=== PATIENT | female | born 1985 | race Caucasian/White ===

== ENCOUNTER → 2017-06-17 15:41 | Outpatient (CLI) | payer MEDICAID, SELFPAY | PROVIDERS: Family Provider Student in an Organized Health Care Education/Training Program; PCP Student in an Organized Health Care Education/Training Program; Visit Provider Otolaryngology Otolaryngology/Facial Plastic Surgery | DX: J32.9 Chronic sinusitis, unspecified (principal) | CPT/HCPCS: 87070; 87077; 87186; 87205 ==

== ENCOUNTER 2017-07-31 12:48 | Emergency (ER) | payer MEDICAID, SELFPAY ==
[2017-07-31 12:49] VITALS: BP 173/115; PULSE 97; RESP 22; TEMP 36.7; O2SAT 98; BMI 36.2
--- NOTE | 2017-07-31 13:05 | CT_ITS ---
STUDY: CT ABDOMEN AND PELVIS WITHOUT CONTRAST REASON FOR EXAM: Female, 32 years old. Right flank pain. RADIATION DOSAGE (If Supplied By Facility): CTDIvol = ( 20.98 ) mGy, DLP = ( 1058.9 ) mGycm TECHNIQUE: Transaxial images were obtained from the dome of the diaphragm to the symphysis pubis without oral contrast, and without intravenous contrast. Sagittal and coronal images were reconstructed. Individualized dose optimization techniques were used for this CT. COMPARISON: Comparison is made with prior study dated May 12, 2015. FINDINGS: The visualized lung bases are unremarkable. The visualized portions of the heart are within normal limits. Normal liver. There are surgical clips in the gallbladder fossa consistent with a prior cholecystectomy. Normal spleen. Normal pancreas. Normal bilateral adrenal glands. Normal right kidney. Normal left kidney. Normal visualized stomach. Normal small intestine. Normal colon. The appendix is visualized and appears normal. Normal abdominal aorta. Normal inferior vena cava. There is borderline retroperitoneal lymphadenopathy with enlarged nodes no greater than 10mm in the short axis diameter. Normal urinary bladder. IUD is seen within the uterus. Follicles are seen in the left ovary. Minimal subcutaneous thickening in the left paraumbilical region. Normal osseous structures. CT/Abdomen/Pelvis without Cont IMPRESSION: Prior cholecystectomy. IUD seen within the uterus. Follicles are seen in the left ovary. Electronically Signed: Abhinav Elizabeth MD at 14:18 EDT Tel [phone], Service support ,
[2017-07-31 13:15] LABS: Absolute Lymphocyte Count 2.72 X10^3/ul (0.83-4.51); Absolute Neutrophil Count 6.9 X10^3/uL (2.0-7.7); Basophil# 0.02 X10^3/uL; Basophil% 0.2 % (0-1); Eosinophil# 0.15 X10^3/uL; Eosinophils% 1.5 % (0-5); Hematocrit 42.4 % (37-47); Hemoglobin 14.3 g/dl (12.0-15.0); Lymphocyte # 2.72 X10^3/ul (4.0); Lymphocyte % 26.3 % (19-41); Mean Corp Hgb Conc 33.7 g/gl (32-36); Mean Corpuscular Hgb 29.3 pg (27.0-32.0); Mean Corpuscular Volume 86.9 fL (81-99); Mean Platelet Vol. 9.3 fl (6.2-12.0); Monocyte# 0.49 X10^3/uL; Monocyte% 4.7 % (0-10); Neutrophil # 6.94 X10^3/uL (2.7-7.7); Neutrophil % 67.1 % (47-70); Platelet Count 308 K/mm3 (150-450); RBC Distribution Width CV 12.3 % (11.6-14.6); RBC Distribution Width SD 39.2 fl (35.1-43.9); Red Blood Count 4.88 M/mm3 (4.2-5.4); White Blood Count 10.3 K/mm3 (4.4-11.0)
[2017-07-31 13:16] LABS: POSITIVE COUNT NO; POSITIVE DIFFERENTIAL NO; POSITIVE MORPHOLOGY NO
[2017-07-31] MEDS: Ondansetron 4 MG/2 ML Vial IV (13:21)
[2017-07-31] MEDS: 0.9% Normal Saline 1,000 ML 1000 ML IV (13:21)
[2017-07-31] MEDS: Ketorolac 30 MG/ML Syringe IV (13:23)
[2017-07-31 13:25] LABS: Mucous, Urine 0 SEEN /hpf (<or=2+)
[2017-07-31 13:29] LABS: AST(SGOT) 41 U/L (15-37); Alanine Aminotransfer ALT/SGPT 76 U/L (13-56); Albumin, Serum 4.2 g/dL (3.2-5.0); Alkaline Phosphatase 95 U/L (45-117); Anion Gap 11 (5-15); BUN 5 mg/dL (7-18); Bilirubin, Direct 0.14 mg/dL (0.00-0.30); Chloride 105 mmol/L (98-107); Creatinine, Serum 0.84 mg/dL (0.55-1.02); EST Glomerular Filtration Rate 83 mL/min (>60); Est Glom Filt Rate - Afr Amer 101 mL/min (>60); Estimated Creatinine Clearance 99.55 ml/min; Globulin 3.9 g/dL (2.2-4.2); Glucose 142 mg/dL (74-106); Lipase 99 U/L (73-393); Potassium 3.5 mmol/L (3.5-5.1); Protein, Total 8.1 g/dL (6.4-8.2); Sodium Level 138 mmol/L (136-145)
[2017-07-31 13:33] LABS: Pregnancy, Serum, hCG Quali. NEGATIVE Negative (0-9 Nonpreg)
[2017-07-31 13:34] LABS: Color, Urine Yellow (Yellow); Glucose, Dipstick Normal (Normal); Ketone-Dipstick 5 mg/dl (Negative); Leukocyte Esterase-Dipstick Negative /ul (Negative); Nitrite-Dipstick Negative (Negative); Occult Blood-Urine 10 /ul (Negative); Protein-Dipstick 30 mg/dl (Negative); Urine Bilirubin Dipstick Negative (Negative); Urine Clarity Clear (Clear); Urine Urobilinogen Normal (Normal)
[2017-07-31 13:41] LABS: Bacteria 1+ /hpf (None Seen); Red Blood Cells-Urine 0-5 SEEN /hpf (0-5); Squamous Epithelial Cells - UA 0-5 SEEN /hpf (5-10); White Blood Cells 0-5 SEEN /hpf (0-5)
[2017-07-31] MEDS: Morphine 4 MG/ML Syringe IV (13:53)
--- NOTE | 2017-07-31 13:59 | ED.DCSUM_ITS ---
- ER Visit Summary Date of Service: 07/31/17 Chief Complaint: Right flank pain History of Present Illness: The patient is a [address] Carrillo. She reports that she had the abrupt onset of right flank pain this morning at 5 AM. Says sharp pains 10 out of 10 severity. Is worsened by nothing relieved by nothing. She has had nausea without vomiting. No diarrhea. Her last bowel movement was yesterday. No melena or hematochezia. No dysuria, frequency, or hematuria. Physical Examination: Vitals: Stable. Afebrile. General: Well-nourished and well-developed. Head: Normocephalic atraumatic. Neck: Supple, no lymphadenopathy. No JVD. Nontender. Cardiovascular: Regular rate and rhythm. No murmurs. Respiratory: No respiratory distress. Clear to auscultation bilaterally. Abdominal: Soft, mild suprapubic tenderness to palpation, nondistended, normal bowel sounds. No guarding, rebound, or peritoneal signs. Back: Mild right CVA tenderness. Extremities: Nontender, no edema. Skin: Normal color, no rash. Neurologic: Alert and oriented ?3. Cranial nerves II through XII are intact. Normal strength and sensation. Psych: Normal affect. Test Results: CBC is normal. Chem-7 is marked for glucose 142 and BUN of 5. LFTs marked for an ALT of 76 and AST of 41. Lipase is normal. UA shows no infection. test is negative. CT flank shows a normal appendix, prior cholecystectomy, left ovarian follicles. Emergency Department Course and Treatment: Patient had an IV placed. She was given morphine, Toradol, and Zofran IV. She is resting comfortably. Treatment Plan: An [facility] report was obtained which show she had one prescription for opiates in the past year. She given a prescription prescription for Zofran and 12 [place]. Instructed to follow-up Dr. Carrillo 1-2 days if not improving. Return to the emergency department for any worsening symptoms. Disposition: To home in improved and stable condition. Impression: 1. Abdominal pain, uncertain cause. This note was generated with [email or web address] software. It may contain incorrect words, spelling, and punctuation that were not noted in review of the chart prior to signing ED Disposition - Plan for ED Patient: Chief Complaint: Abd Pain Instructions: ED Abdominal Pain Unkn Cause Prescriptions: Ondansetron [Zofran Odt] 4 mg PO Q8H PRN PRN #10 tablet PRN Reason: Nausea Hydrocodone/Acetaminophen [[place] 5-325 Tablet] 1 - 2 each PO 4X/DAY PRN PRN 3 Days #12 tablet PRN Reason: Pain Referrals: Gigi Carrillo DO [Primary Care Provider] - 1-2 Days if not improving
[2017-07-31 14:45] VITALS: BP 145/85; PULSE 81; RESP 16; O2SAT 98
== END 2017-07-31 14:46 | disposition home or self-care (01) ==
PROVIDERS: Emergency Provider Emergency Medicine; Family Provider Student in an Organized Health Care Education/Training Program; PCP Student in an Organized Health Care Education/Training Program
DX: R10.9 Unspecified abdominal pain (principal); E11.9 Type 2 diabetes mellitus without complications; F32.9 Major depressive disorder, single episode, unspecified; Z90.49 Acquired absence of other specified parts of digestive tract; Z79.84 Long term (current) use of oral hypoglycemic drugs; Z79.899 Other long term (current) drug therapy
CPT/HCPCS: 74176; 80048; 80076; 81001; 83690; 84703; 85025; 96361; 96374; 96375; 99283; J7030; A4216; J2405

== ENCOUNTER → 2019-06-22 11:27 | Outpatient (CLI) | payer MEDICAID, SELFPAY ==
[2019-01-14 15:28] VITALS: BMI 36.2
--- NOTE | 2019-06-22 11:38 | US_ITS ---
STUDY: ABDOMINAL ULTRASOUND REASON FOR EXAM: Female, 34 years old. NAUSEA, ABD CRAMPING, BLOODY STOOLS TECHNIQUE: Transabdominal ultrasound was performed with real-time and static montaño scale imaging. TECHNICAL QUALITY: Adequate. COMPARISON: None. FINDINGS: Liver: The liver measures 17.9 cm. There is increased echogenicity consistent with fatty infiltration. The bile ducts are within normal limits. There is hepatic color flow. The direction of portal flow is hepatopetal. There is no demonstrated mass lesion. Portal vein measurement: Gallbladder: The patient is status post cholecystectomy. Common Bile Duct (C.B.D.): The common bile duct measures 6.8 mm. Pancreas: Normal size of the head, body and tail of the pancreas. There is normal echogenicity of the pancreas. There is no demonstrated pancreatic mass or cyst. Spleen: Normal size of the spleen. The spleen measures 12 cm x 5.2 cm x 5.3 cm. Right Kidney: Normal size of the right kidney. The right kidney measures 12.6 cm x 7.1 cm x 4.9 cm. Normal renal cortex. The right cortex measures 1.6 cm. There is no demonstrated renal mass or cyst. There is no right hydronephrosis. Left Kidney: Normal size of the left kidney. The left kidney measures 11.8 cm x 6.4 cm x 6.1 cm. Normal renal cortex. The left cortex measures 2.0 cm. There is no demonstrated renal mass or cyst. There is no left hydronephrosis. Aorta: Unremarkable I.V.C.: The IVC is patent. There is no ascites. US/Abdomen Complete IMPRESSION: Fatty infiltration of the liver. Status post cholecystectomy. Electronically Signed: Abhinav Elizabeth, at 13:10 EDT , Service support ,
== END ==
PROVIDERS: PCP Student in an Organized Health Care Education/Training Program; Referring Provider Nurse Practitioner Family; Visit Provider Nurse Practitioner Family
DX: R11.0 Nausea (principal); R10.9 Unspecified abdominal pain; K92.1 Melena; R73.9 Hyperglycemia, unspecified
CPT/HCPCS: 76700

== ENCOUNTER → 2020-02-14 09:00 | Outpatient (CLI) | payer MEDICAID, SELFPAY ==
[2019-01-14 15:28] VITALS: BMI 36.2
== END ==
PROVIDERS: PCP Student in an Organized Health Care Education/Training Program; Referring Provider Otolaryngology; Visit Provider Otolaryngology
DX: U07.1 COVID-19 (principal)
CPT/HCPCS: 87635; U0003

== ENCOUNTER 2020-02-22 13:12 | Emergency (ER) | payer MEDICAID, SELFPAY ==
[2019-01-14 15:28] VITALS: BMI 36.2
[2020-02-22 13:12] VITALS: BP 152/107; PULSE 101; RESP 20; TEMP 36.4; O2SAT 100; BMI 35.2
--- NOTE | 2020-02-22 14:13 | ED.DCSUM_ITS ---
History of Present Illness Chief Complaint: Shortness of Breath Informant: Patient Narrative: 34-year-old female presenting with bilateral lower chest pain for the last couple of days. She states that she was tested positive for Covid?19 on 15 February. She states she is began having symptoms on February 13 and this is the day she was tested. Patient states that she began to feel better about the fourth and fifth day of her symptoms and then started feeling worse and having chest pain and worsening cough. - Past Medical History (1) Diabetes Status: Acute Past Medical History - Allergies and Home Meds Allergies/Adverse Reactions: Allergies macadamia nut oil Allergy (Verified 01/14/19 15:18) Rash Primary Care Physician: Gigi Carrillo DO [Primary Care Provider] - Prior records reviewed: Yes Past Medical History: - - Reviewed in problem list Surgical History: noncontributory Smoking Status: Never smoker Review of Systems General: Reports: Chills, Fever Eyes: Denies: Visual changes - bilaterally, Diplopia ENT: Denies: Rhinorrhea, Sore throat Cardiovascular: Reports: Chest pain Respiratory: Reports: Dyspnea, Cough. Denies: Sputum Gastrointestinal: Denies: Abdominal pain, Nausea, Vomiting Genitourinary: Denies: Dysuria, Hematuria Musculoskeletal: Reports: Myalgias Skin: Denies: Rash, Abscess Neurological: Reports: Headache, Numbness. Denies: Parasthesia Psych: Denies: Depression, Anxiety Physical Exam Vital Signs/Narrative: Vital Signs Temp Pulse Resp BP Pulse Ox 02/22/20 13:12 97.6 F L 101 H 20 H 152/107 H 100 Inital Vital Signs reviewed: Yes General: Well nourished, No Acute Distress Head: Normocephalic, Atraumatic Eyes: Perrl, EOMI ENT: Moist mucous membranes, Nasal congestion Cardiovascular: Regular rate, Regular rhythm Abdomen: Soft, Nontender, Nondistended Extremities: Nontender, No edema. Negative for: Calf Tenderness Skin: Normal color, No rash Neurological: Alert, Oriented x3 Psychological: Normal affect, Normal Mood Diagnostic/Tx/Re-eval Clinical Impression(s) from Imaging Studies Chest X-Ray 02/22/20 15:00 IMPRESSION: Minimal increased markings are seen in the lateral aspect of the right upper lobe. Electronically Signed: Abhinav Elizabeth, at 15:13 EST , Service support , Laboratory Data 02/22/20 02/22/20 02/22/20 14:47 14:47 14:47 WBC 5.8 RBC 5.26 Hgb 15.7 H Hct 45.9 MCV 87.3 MCH 29.8 MCHC 34.2 RDW Std Deviation 37.5 RDW Coeff of Tristan 11.8 Plt Count 194 MPV 9.8 Immature Gran % (Auto) 0.300 Neut % (Auto) 63.5 Lymph % (Auto) 27.8 [place] % (Auto) 6.7 Eos % (Auto) 1.2 Baso % (Auto) 0.5 Absolute Neuts (auto) 3.7 Absolute Lymphs (auto) 1.61 Nucleated RBC % 0 D-Dimer Quant (PE/DVT) Sodium 137 Potassium 3.3 L Chloride 104 Carbon Dioxide 26.0 Anion Gap 7 BUN 7 Creatinine 0.72 Estim Creat Clear Calc 113.97 Est GFR (MDRD) Af Amer 119 Est GFR (MDRD) Non-Af 98 BUN/Creatinine Ratio 9.8 L Glucose 246 H Lactic Acid 1.4 Calcium 8.6 Total Bilirubin 0.70 AST 79 H ALT 154 H Alkaline Phosphatase 112 Total Protein 7.7 Albumin 3.7 Globulin 4.0 Albumin/Globulin Ratio 0.9 Procalcitonin 02/22/20 02/22/20 14:47 14:47 WBC RBC Hgb Hct MCV MCH MCHC RDW Std Deviation RDW Coeff of Tristan Plt Count MPV Immature Gran % (Auto) Neut % (Auto) Lymph % (Auto) [place] % (Auto) Eos % (Auto) Baso % (Auto) Absolute Neuts (auto) Absolute Lymphs (auto) Nucleated RBC % D-Dimer Quant (PE/DVT) 0.36 Sodium Potassium Chloride Carbon Dioxide Anion Gap BUN Creatinine Estim Creat Clear Calc Est GFR (MDRD) Af Amer Est GFR (MDRD) Non-Af BUN/Creatinine Ratio Glucose Lactic Acid Calcium Total Bilirubin AST ALT Alkaline Phosphatase Total Protein Albumin Globulin Albumin/Globulin Ratio Procalcitonin < 0.01 - EKG Initial EKG Interpretation: Sinus Rhythm, No Acute Injury Pattern - Medical Decision Making Patient presents with chest pain for the last couple of days with a history of Covid positive diagnosis. Patient's vital signs are stable and she is afebrile currently. Her EKG is sinus rhythm without signs of ischemia. Lab work is all within normal limits. Troponin is negative. D-dimer is negative. Patient has chest x-ray shows slight worsening of her infiltrate. She is 100% on room air, not tachypneic and otherwise nontoxic-appearing. She did meet criteria for monoclonal antibodies so she was given referral. I think at this time she is safe to be discharged home for follow-up on an outpatient basis. She was given return precautions. Impression: 1. Covid?19 pneumonia 2. Chest pain ED Disposition - Plan for ED Patient: Disposition: Home or Assisted Living Instructions: Coronavirus Disease 2019 (COVID-19): Caring for Yourself or Others Referrals: Gigi Carrillo DO [Primary Care Provider] -
--- NOTE | 2020-02-22 14:23 | EKG12_ITS ---
Test Reason : SOB Blood Pressure : / mmHG Vent. Rate : 076 BPM Atrial Rate : 076 BPM P-R Int : 164 ms QRS Dur : 090 ms QT Int : 372 ms P-R-T Axes : 057 044 009 degrees QTc Int : 418 ms Normal sinus rhythm Normal ECG Confirmed by ALBERTO BARILLAS, HUDSON ([id number]), sports editor NELLY LANG ([id number]) on 03/06/2020 8:35:00 AM Referred By: SAUL Confirmed By:SANDRA DOMINGUEZ MD
--- NOTE | 2020-02-22 14:36 | NURSING ---
NO OLD EKGS
[2020-02-22 14:53] VITALS: BP 141/73; PULSE 83; RESP 22; TEMP 36.3; O2SAT 99
[2020-02-22 14:55] VITALS: O2SAT 98
[2020-02-22 14:58] LABS: Absolute Lymphocyte Count 1.61 X10^3/uL (0.83-4.51); Absolute Neutrophil Count 3.7 X10^3/uL (2.0-7.7); Basophil# 0.03 X10^3/uL; Basophil% 0.5 % (0-1); Eosinophil# 0.07 X10^3/uL; Eosinophils% 1.2 % (0-5); Hematocrit 45.9 % (37-47); Hemoglobin 15.7 g/dL (12.0-15.0); Lymphocyte # 1.61 X10^3/ul (4.0); Lymphocyte % 27.8 % (19-41); Mean Corp Hgb Conc 34.2 g/dL (32-36); Mean Corpuscular Hgb 29.8 pg (27.0-32.0); Mean Corpuscular Volume 87.3 fL (81-99); Mean Platelet Vol. 9.8 fl (6.2-12.0); Monocyte# 0.39 X10^3/uL; Monocyte% 6.7 % (0-10); NRBC Flagged by Analyzer 0 % (0-5); Neutrophil # 3.67 X10^3/uL (2.7-7.7); Neutrophil % 63.5 % (47-70); Platelet Count 194 K/mm3 (150-450); RBC Distribution Width CV 11.8 % (11.6-14.6); RBC Distribution Width SD 37.5 fl (35.1-43.9); Red Blood Count 5.26 M/mm3 (4.2-5.4); White Blood Count 5.8 K/mm3 (4.4-11.0)
--- NOTE | 2020-02-22 15:00 | RAD_ITS ---
STUDY: X-RAY CHEST REASON FOR EXAM: Female, 34 years old. COVID POSITIVE. INCREASED COUGH AND SOB. TECHNIQUE: Single AP portable view of the chest. COMPARISON: None. FINDINGS: EKG electrodes are seen. I suspect minimal increased markings in the lateral aspect of the right upper lobe. There is no demonstrated pleural abnormality. Normal size heart. Normal mediastinum and andry. Normal visualized pulmonary arteries. Normal visualized aortic arch and descending thoracic aorta. Normal visualized thoracic spine. Normal visualized ribs, clavicles, and shoulders. There is no demonstrated abnormality of the visualized soft tissue structures of the upper abdomen. RAD/Chest 1 View (Portable) IMPRESSION: Minimal increased markings are seen in the lateral aspect of the right upper lobe. Electronically Signed: Abhinav Elizabeth, at 15:13 EST , Service support ,
[2020-02-22 15:13] LABS: ALB/GLOB Ratio 0.9 RATIO (0.9-2.4); AST(SGOT) 79 U/L (15-37); Alanine Aminotransfer ALT/SGPT 154 U/L (13-56); Albumin, Serum 3.7 g/dL (3.2-5.0); Alkaline Phosphatase 112 U/L (45-117); Anion Gap 7 (5-15); BUN 7 mg/dL (7-18); BUN/Creat Ratio 9.8 RATIO (10-20); Calcium,Total 8.6 mg/dL (8.5-10.1); Chloride 104 mmol/L (98-107); Creatinine, Serum 0.72 mg/dL (0.55-1.02); EST Glomerular Filtration Rate 98 mL/min (>60); Est Glom Filt Rate - Afr Amer 119 mL/min (>60); Estimated Creatinine Clearance 113.97 ml/min; Glucose 246 mg/dL (74-106); Potassium 3.3 mmol/L (3.5-5.1); Protein, Total 7.7 g/dL (6.4-8.2); Sodium Level 137 mmol/L (136-145)
[2020-02-22 15:31] LABS: Lactic Acid 1.4 mmol/L (0.4-1.9)
[2020-02-22 15:33] LABS: D-Dimer Quantitative (DVT/PE) 0.36 FEU/ug/m (0.27-0.49)
[2020-02-22 16:00] VITALS: BP 147/100; PULSE 84; RESP 20; TEMP 36.7
[2020-02-22 17:12] LABS: Procalcitonin < 0.01 ng/mL (0.00-0.09)
[2020-02-22 17:40] VITALS: BP 111/76; PULSE 88; RESP 20; TEMP 36.8; O2SAT 97
== END 2020-02-22 17:40 | disposition home or self-care (01) ==
PROVIDERS: Emergency Provider Student in an Organized Health Care Education/Training Program; PCP Student in an Organized Health Care Education/Training Program
DX: U07.1 COVID-19 (principal); J12.89 Other viral pneumonia; R07.9 Chest pain, unspecified; E11.9 Type 2 diabetes mellitus without complications; Z79.84 Long term (current) use of oral hypoglycemic drugs
CPT/HCPCS: 71045; 80053; 83605; 84145; 85025; 85379; 87040; 93005; 99284; A4216

== ENCOUNTER 2020-02-24 12:35 | Outpatient (CLI) | payer MEDICAID, SELFPAY ==
[2020-02-24 12:49] VITALS: BP 125/66; PULSE 83; RESP 18; O2SAT 98; BMI 35.1
[2020-02-24 13:50] VITALS: BP 132/82; PULSE 80; RESP 18; TEMP 36.8; O2SAT 98
[2020-02-24 14:20] VITALS: BP 136/81; PULSE 84; RESP 20; TEMP 36.7; O2SAT 97
[2020-02-24 14:40] VITALS: BP 129/83; PULSE 82; RESP 16; TEMP 36.8; O2SAT 99
[2020-02-24 15:40] VITALS: BP 133/82; PULSE 85; RESP 18; TEMP 36.7
== END 2020-02-24 15:43 | disposition home health service (06) ==
LOC: MS2OUT 12:36
PROVIDERS: PCP Student in an Organized Health Care Education/Training Program; Referring Provider Nurse Practitioner Acute Care; Visit Provider Nurse Practitioner Acute Care
DX: U07.1 COVID-19 (principal)
CPT/HCPCS: 96365; J7050; M0239; Q0239

== ENCOUNTER → 2020-03-30 | Outpatient (CLI) | payer MEDICAID, SELFPAY | END | disposition home or self-care (01) | LOC: LABSPEC 15:09 | PROVIDERS: PCP Student in an Organized Health Care Education/Training Program; Referring Provider Otolaryngology; Visit Provider Otolaryngology | DX: J32.9 Chronic sinusitis, unspecified (principal) | CPT/HCPCS: 87070; 87077; 87186; 87205 ==

== ENCOUNTER → 2020-06-06 16:26 | Outpatient (CLI) | payer MEDICAID, SELFPAY ==
--- NOTE | 2020-06-06 16:27 | CT_ITS ---
STUDY: CT FACIAL BONES WITHOUT CONTRAST REASON FOR EXAM: Female, 35 years old. CHRONIC SINUSITIS RADIATION DOSAGE (If Supplied By Facility): CTDIvol = ( 33.06 ) mGy, DLP = ( 817.32 ) mGycm TECHNIQUE: The patient was scanned in a multi detector CT scanner. Sagittal and coronal images were reconstructed. Individualized dose optimization techniques were used for this CT. COMPARISON: None. FINDINGS: Normal soft tissue structures. Normal orbital corona and orbital contents. Normal nasal bones and anterior nasal spine. Normal facial bones. There is no demonstrated fracture. Normal visualized paranasal sinuses. CT/Sinus/Facial Bone IMPRESSION: Normal unenhanced CT of the facial bones. Electronically Signed: Leo Gardner MD at 22:56 EDT Tel , Service support ,
== END ==
PROVIDERS: PCP Student in an Organized Health Care Education/Training Program; Referring Provider Otolaryngology; Visit Provider Otolaryngology
DX: J32.9 Chronic sinusitis, unspecified (principal)
CPT/HCPCS: 70486

== ENCOUNTER 2020-07-25 06:50 | Day surgery (SDC) | payer MEDICAID, SELFPAY ==
[2020-07-24 09:19] LABS: Hemoglobin A1c 9.7 % (3.8-5.6)
[2020-07-24 09:36] LABS: Anion Gap 6 (5-15); BUN 9 mg/dL (7-18); BUN/Creat Ratio 13.4 RATIO (10-20); Calcium,Total 8.6 mg/dL (8.5-10.1); Chloride 102 mmol/L (98-107); Creatinine, Serum 0.67 mg/dL (0.55-1.02); EST Glomerular Filtration Rate 105 mL/min (>60); Est Glom Filt Rate - Afr Amer 127 mL/min (>60); Glucose 274 mg/dL (74-106); Potassium 3.9 mmol/L (3.5-5.1); Sodium Level 135 mmol/L (136-145)
[2020-07-25] VITALS (8 sets, daily range): BP systolic 103–151; BP diastolic 62–94; PULSE 59–84; RESP 16; TEMP 36.1–36.3; O2SAT 94–100; BMI 33.9
[2020-07-25 07:15] LABS: Internal QC Validated? YES +Cl - CLEAR BKGD; Pregnancy, Urine Negative Negative
[2020-07-25] MEDS: Lactated Ringers 1,000 ML 100 ML IV ×2 (07:57→10:01)
[2020-07-25 08:02] LABS: Anion Gap 8 (5-15); BUN 9 mg/dL (7-18); BUN/Creat Ratio 13.8 RATIO (10-20); Calcium,Total 8.5 mg/dL (8.5-10.1); Chloride 102 mmol/L (98-107); Creatinine, Serum 0.65 mg/dL (0.55-1.02); EST Glomerular Filtration Rate 109 mL/min (>60); Est Glom Filt Rate - Afr Amer 132 mL/min (>60); Estimated Creatinine Clearance 125.04 ml/min; Glucose 267 mg/dL (74-106); Potassium 3.7 mmol/L (3.5-5.1); Sodium Level 135 mmol/L (136-145)
--- NOTE | 2020-07-25 08:10 | ETH_PTH ---
PATIENT: FREYA ESPARZA LOC: [facility] [place] U#:[id number] AGE/SX: 35/F ROOM: RE07/25/[address]: Dr. Bharat Dewitt MD : 1985 BED: DIS: 07/25/2020 SPEC #: [id number] RECD: 07/25/20 11:39 STATUS: CHILO REAjay #: [id number] PABLO: 07/25/20 08:[address]: Bharat Dewitt DEPT: SURGICAL PATHOLOGY RECD BY: Michaela Grayson ENTERED: 07/25/20 12:38 SP TYPE: ETH TISS OTHR DR: MD Dr. Gigi Moyer DO Tissues: A - Ethmoid sinus, NOS B - Ethmoid sinus, NOS Procedures: Decalcification bone/plaque Surgery Specimen Level IV HEADER OPERATION: Functional endoscopic sinus surgery, Navigation PRE-OP DIAGNOSIS: Nasal congestion, hypertrophy of inferior nasal turbinates, chronic pansinusitis, nasal bone fracture, deviated nasal septum TISSUE SUBMITTED: A - Contents of left ethmoid and maxillary sinus, B - Contents of right ethmoid and maxillary sinus MICROSCOPIC DIAGNOSIS A. Left ethmoid sinus and maxillary sinus contents: Fragments of respiratory mucosa including turbinate with chronic inflammation and bone. B. Right ethmoid sinus and maxillary sinus contents: Fragments of respiratory mucosa including turbinate with chronic inflammation and bone. MAI:abhishek 07/28/2020 MICROSCOPIC DESCRIPTION Slides are reviewed. GROSS DESCRIPTION A - Received in fixative is one container labeled with the patient's name and designated contents of left ethmoid and maxillary sinus. The specimen consists of multiple irregular fragments of pink soft tissue mixed with fragments of bone and turbinate that in aggregate measure 5 x 3 x 0.3 cm. The entire specimen is submitted in two cassettes after decalcification. B - Received in fixative is one container labeled with the patient's name and designated contents of right ethmoid and maxillary sinus. The specimen consists of multiple irregular fragments of hemorrhagic mucoid tissue mixed with fragments of causey-pink soft tissue and turbinate and bone that in aggregate measure 6 x 3 x 0.3 cm. Varnish Dipper tissue is submitted in two cassettes after decalcification. / MAI:abhishek 07/25/20 TC:3 CPT: 16429 x2, 27493 x2
--- NOTE | 2020-07-25 08:11 | PCM.DC ---
Discharge Instructions Diet Discharge Diet: No restrictions Activity Discharge Activity: May not drive while taking narcotic pain medications. Dressing / Incision Call your doctor if your incision/area has: Sudden Increased Bleeding Additional Dressing/Incision Instructions:: irrigate nose with saline 4 times daily. mupirocin ointment to nose and incision twice daily. sleep with head of bed elevated. keep bridge of nose dry except the morning of follow up - get it very wet in the shower so the cast comes off easily in clinic. Follow Up Care Please Follow Up With: Loco Dewitt MD When: 1 week Test Results: Test results from this visit will be discussed in further detail at your follow-up appointment, if applicable. Discharge Plan Admission Attending Provider: Loco Dewitt Primary Care Provider: Gigi Carrillo Consulting Providers: Anthony Anton Discharge Orders/Prescriptions Prescriptions: No Action metformin 500 MG tablet 500 mg PO BID RF: 0 colestipol 1 GM tablet 1 gm PO DAILY RF: 0 bupropion HCl 300 MG tablet extended release 24 hr 300 mg PO DAILY RF: 0 liraglutide 0.6 MG/0.1 ML pen injector 1.8 mg SQ DAILY RF: 0 Referrals / Follow Up: Gigi Carrillo DO [Primary Care Provider] - Disposition Discharge Orders: Discharge Patient (Routine); Ordered 07/25/20 Ordered By: Dr. Loco Dewitt
[2020-07-25 08:18] LABS: Hemoglobin A1c 10.1 % (3.8-5.6)
--- NOTE | 2020-07-25 08:19 | OP.PCM_ITS ---
Problems Associated Problem List Diagnoses (1) Nasal congestion: (2) Hypertrophy of inferior nasal turbinate: (3) Chronic pansinusitis: (4) Nasal bone fracture: (5) Deviated nasal septum: Report of Operation Date of Procedure: 07/25/20 Pre-Operative Diagnosis: 1. nasal congestion 2. nasal septal deviation 3. nasal bone fracture 4. inferior turbinate hypertrophy, right and left 5. chronic pansinusitis Post-Operative Diagnosis: 1. nasal congestion 2. nasal septal deviation 3. nasal bone fracture 4. inferior turbinate hypertrophy, right and left 5. chronic pansinusitis Surgery/Procedure Performed:: 1. open septorhinoplasty 2. submucous resection inferior turbinates, right and left 3. endoscopic total ethmoidectomy, right and left 4. endoscopic maxillary antrostomy with removal of contents, right and left 5. endoscopic frontal sinus exploration, right and left 6. endoscopic sphenoidotomy with removal of contents, right and left 7. CT image guidance navigation Type of Anesthesia: General Description of Procedure: On the day of the procedure, after appropriate informed consent was obtained, the patient was brought to the operating room and placed in a supine position on the operating room table. The patient was placed under general endotracheal anesthesia by the anesthesiologist. The endotracheal tube was secured. image guidance navigation was set up on the face and accuracy was confirmed. the nose was injected with lidocaine/epinephrine and decongested with oxymetazoline-soaked pledgets. Lacri-Lube was placed in the eyes and Tegaderm was placed over the eyes. The nose was injected with 1% lidocaine with epinephrine. The face was prepped and draped in sterile fashion. An inverted-V columellar incision was made with a Tioga blade. This traversed into the left and right marginal incisions in the nose. It was opened with three-point retraction and an Iris scissors. The left and right lower lateral cartilages were skeletonized. This was taken to the left scroll region and the left upper lateral cartilages were skeletonized as was the right scroll region and right upper lateral cartilage. The anterior septal angle was found by lateralizing the medial crura. However, it was severely deviated to the right and off the maxillary crest. This was carefully dissected using the [place]-tip Bovie. The submucoperichondrial flaps were created with the Freida elevator, first on the left and then the right posteriorly to the bony cartilaginous junction and inferiorly to the maxillary crest. Posteriorly, the patient had a large 2-cm bony spur that impinged into the maxillary natural os. Anteriorly, the patient had a very severe right to mid septal deviation. It was nearly occluding the nasal airway. A Freida elevator was used to disarticulate the bony cartilaginous junction. A #15 blade was used to disarticulate the right upper lateral cartilage which significantly destabilized the nose. A 1 cm strut was maintained off the keystone area which was still stable and the Catron elevator and a D-knife were used to remove the remainder of the septum. This was reshaped and sutured and fashioned to perform an anterior septal reconstruction and saved for future use. The deviated portions of the perpendicular plate of the ethmoid bone and vomer were removed using a Markie-Monet including the large right-sided septal spur. The head of the right and left inferior turbinates were injected with 1% lidocaine with epinephrine. The head of the left inferior turbinate was incised with a #15 blade. This was dissected submucosally using the Freida elevator, reduced using suction electrocautery, and outfractured using a Boies elevator. Similarly, on the right, the head of the right inferior turbinate was incised with a #15 blade. This was dissected submucosally using a Catron elevator, reduced using suction electrocautery, and outfractured using a Boies elevator. using a 2mm osteotome, lateral osteotomies were made on the patient's left then right. the severely deviated bony pyramid was then medialized and restored. the anterior septal reconstruction was placed as a left-sided internal medical staff manager graft. This was sutured between the nasal septum and right upper lateral cartilage using 4-0 PDS. This was also sutured to the maxillary crest in multiple points using 4-0 PDS. Additionally, a 2 mm x 1 cm internal medical staff manager graft was placed on the right side and sutured with 4-0 PDS. At this point, the nose was significantly re- stabilized. Multiple dermal sutures were used to refashion the nasal tip for stability to prevent collapse and a 5 mm x 2 mm columellar strut was used to prevent collapse. The submucoperichondrial flaps were closed with numerous 4-0 chromic sutures several incorporating the anterior septal reconstruction. The inverted-V columellar incision was closed with 7-0 Vicryl and the marginal incisions with interrupted 4-0 chromic. Espinosa splints were placed and a dorsal nasal splint was placed. The nose was irrigated with normal saline and the table was rotated 90 degrees toward the anesthesiologist. the zero degree endoscope was used to evaluate the nasal cavity. the superior attachment of the right and left middle turbinate and uncinate processes were injected with lidocaine/epinephrine. the left nasal cavity was evaluated. the middle turbinate was medialized. a maxillary antrostomy and uncinectomy were performed with a freida elevator and a randi cut. the antrostomy was widened with a back-biter. the ethmoid bulla was entered bluntly with the suction. a total ethmoidectomy was performed with a curette and an upgoing blakesley. this was taken superiorly to the skull base and laterally to the lamina. a stankewicz maneuver was performed and no laminar defect was noted. the natural sphenoid os was widened with the microdebrider and contents were evacuated. the frontal recess was explored and contents were evacuated. hemostasis was achieved with suction cautery. the right nasal cavity was evaluated. the middle turbinate was medialized. a maxillary antrostomy and uncinectomy were performed with a freida elevator and a randi cut. the antrostomy was widened with a back-biter. the ethmoid bulla was entered bluntly with the suction. a total ethmoidectomy was performed with a curette and an upgoing blakesley. this was taken superiorly to the skull base and laterally to the lamina. a stankewicz maneuver was performed and no laminar defect was noted. the natural sphenoid os was widened with the microdebrider and contents were evacuated. the frontal recess was explored and contents were evacuated. hemostasis was achieved with suction cautery. espinosa splints were sutured into place, and a dorsal nasal splint was placed. a nasogastric tube was inserted orally and contents were evacuated. the table was rotated 90 degrees toward the anesthesiologist and was subsequently extubated uneventfully. he was transferred to the PACU in stable condition.
[2020-07-25 09:51] LABS: Bedside Glucose 263 mg/dL (70-110)
[2020-07-25] MEDS: Mupirocin Ointment 22gm Tube 1 APPLIC (10:30)
[2020-07-25] MEDS: Lidocaine 1% /Epi 1:100 (20ml) 20 ML Vial (10:30)
[2020-07-25] MEDS: Oxymetazoline 0.05% 1 SPRAY SPRAY.BTL 15 SPRAY (10:30)
[2020-07-25 14:56] LABS: Bedside Glucose 297 mg/dL (70-110)
== END 2020-07-25 15:06 | disposition home or self-care (01) ==
LOC: SDC 06:50 → AC 06:51
PROVIDERS: Anesthesiology; PCP Student in an Organized Health Care Education/Training Program; Referring Provider Otolaryngology; Visit Provider Otolaryngology
PROC: (CPT 30140; principal; 2020-07-25 07:50)
PROC: (CPT 30140; 2020-07-25 07:50)
DX: J34.2 Deviated nasal septum (principal); J34.3 Hypertrophy of nasal turbinates; J32.4 Chronic pansinusitis; E11.9 Type 2 diabetes mellitus without complications; F32.9 Major depressive disorder, single episode, unspecified; F41.9 Anxiety disorder, unspecified; Z79.84 Long term (current) use of oral hypoglycemic drugs; Z79.899 Other long term (current) drug therapy; Z20.822 Contact with and (suspected) exposure to COVID-19; Z86.16 Personal history of COVID-19
CPT/HCPCS: 00160; 30140; 30520; 31259; 31267; 36415; 80048; 81025; 82962; 83036; 87426; 88305; 88311; C9803; J7120; J2405

== ENCOUNTER → 2021-01-05 15:47 | Outpatient (CLI) | payer MEDICAID, SELFPAY | PROVIDERS: PCP Student in an Organized Health Care Education/Training Program; Visit Provider Otolaryngology | DX: J32.8 Other chronic sinusitis (principal) | CPT/HCPCS: 87070; 87077; 87205 ==

== ENCOUNTER 2021-06-07 13:57 | Emergency (ER) | payer MEDICAID, SELFPAY ==
[2021-06-07 13:57] VITALS: BP 166/100; PULSE 81; RESP 16; TEMP 36.1; O2SAT 100; BMI 33.2
== END 2021-06-07 17:03 | disposition left against medical advice (07) ==
LOC: ED 17:06
PROVIDERS: PCP Student in an Organized Health Care Education/Training Program
DX: R05.9 Cough, unspecified (principal); Z53.21 Procedure and treatment not carried out due to patient leaving prior to being seen by health care provider

== ENCOUNTER 2021-07-03 18:13 | Emergency (ER) | payer MEDICAID, SELFPAY ==
[2021-07-03 18:14] VITALS: BP 145/92; PULSE 81; RESP 15; TEMP 36.4; O2SAT 98; BMI 33.8
--- NOTE | 2021-07-03 18:38 | EX.ED.DYSGE1 ---
HPI History of Present Illness Chief Complaint: Abn Labs Narrative Narrative: Unvaccinated patient tested positive for COVID and influenza A at the same time 1 week ago. She has had symptoms for 1.5 weeks. Very mild dyspnea with exertion and a normal chest x-ray but an abnormal D-dimer that was run today because she has been having soreness across both sides of her anterior and lateral low chest/rib cage when she coughs. She has been coughing a lot. She was sent here for CTA to rule out pulmonary embolus. She has never had a history of DVT or PE in the past and has no symptoms of a DVT right now. She mostly has anterior chest pain when she coughs, she denies any pleuritic discomfort when she is not coughing. [facility] Medical History delivery delivered Cholecystectomy planned Diabetes Diarrhea H/O gastric ulcer Knee pain Leg cramps Migraine headache Severe headache unexplained bruises Home Medications bupropion HCl 300 mg PO DAILY 07/31/17 [History Last Taken 02/17/20] colestipol 1 gm PO DAILY 07/31/17 [History Last Taken 02/17/20] metformin 500 mg PO BID 07/31/17 [History Last Taken 02/17/20] liraglutide 1.8 mg SQ DAILY 02/24/20 [History Last Taken 02/17/20] Allergy/AdvReac Type Severity Reaction Status Date / Time macadamia nut oil Allergy Rash Verified 06/07/21 13:59 Family History (Reviewed 02/23/20 @ 11:17 by Desirae Ndiaye TRAINING AND DOCUMENTATION SPECIALIST, TRAINING AND DOCUMENTATION SPECIALIST-C) Mother Breast cancer Kidney disease Ovarian cancer Pancreatic cancer Surgical History H/O foot surgery Hx of foot surgery Social History Smoking Status: Never smoker ROS ROS ED Constitutional Constitutional ED: Denies chills or fever(s) Eyes Eyes: Denies change in vision or diplopia ENT ENT ED: Denies rhinorrhea or sore throat Cardiovascular Cardiovascular: Reports chest pain; Denies orthopnea, palpitations or pedal edema Respiratory/Chest Respiratory/Chest: Reports cough and dyspnea on exertion; Denies excessive phlegm production or orthopnea Gastrointestinal Gastrointestinal: Denies abdominal pain, diarrhea, nausea or vomiting Genitourinary Genitourinary ED: Denies dysuria or hematuria Musculoskeletal Musculoskeletal: Denies back pain or neck pain Integumentary Denies abscess or rash Neurologic Neurologic: Denies headache(s), paresthesias or weakness Psychiatric Psychiatric: Denies anxiety or suicidal thoughts EXAM Physical Exam Const Vital Signs: 07/03/21 18:14 07/03/21 18:33 07/03/21 19:54 Temperature 97.5 F L Temperature Source Temporal Pulse Rate 81 85 Respiratory Rate 15 18 Respiratory Effort Non-Labored Short of Breath Blood Pressure 145/92 H 141/91 H Blood Pressure Mean 109 107 Pulse Ox 98 100 Oxygen Delivery Method Room Air Room Air 07/03/21 21:00 Temperature Temperature Source Pulse Rate 70 Respiratory Rate 28 H Respiratory Effort Blood Pressure 149/92 H Blood Pressure Mean 111 Pulse Ox 99 Oxygen Delivery Method Room Air Positive well nourished and well developed General Appearance ED: well developed and NAD HEENT Reports moist mucous membranes normocephalic and atraumatic Eyes PERRL and EOMs intact bilaterally Neck full ROM and supple Chest Wall inspection of chest normal Chest Narrative: Mild tenderness bilateral lower rib cage reproducing the patient's pain Resp normal respiratory effort and clear to auscultation bilaterally Cardio regular rate, regular rhythm and no murmurs Rate: Negative for tachycardic GI non-tender and non-distended Auscultation: normoactive bowel sounds Palpation: soft Back/Spine no CVA tenderness General Back: other FROM Extremity normal to inspection, no calf tenderness and no pedal edema General Extremety ED: Negative for edema, pulses abnormal or tenderness General Extremity: Negative for edema or pulses abnormal Neuro oriented x3, CN's II-XII intact bilaterally and no sensory deficits noted Sensorium / Orientation: awake and alert Motor Exam: strength 5/5 throughout Skin no rashes or lesions noted and no wounds MDM MDM MDM Narrative Medical decision making narrative: CT angiography of the chest was obtained, it is unremarkable showing no pulmonary embolism or signs of pneumonitis. Her vital signs are normal including a pulse ox of 98-99% on room air. We did receive the report of her elevated D-dimer from [facility] outpatient labs. Patient is reassured that her elevated D-dimer in context is likely due to COVID itself, she does not have any evidence of PE at this time nor does she have a DVT clinically. Reassured, discussed reasons to return and follow-up. Lab Data Attestation: I reviewed the patient's lab results. Labs: Laboratory Results - last 24 hr 07/03/21 07/03/21 18:50 18:50 WBC 10.2 RBC 4.84 Hgb 14.4 Hct 42.1 MCV 87.0 MCH 29.8 MCHC 34.2 RDW Std Deviation 36.9 RDW Coeff of Tristan 11.7 Plt Count 298 MPV 9.9 Immature Gran % (Auto) 0.500 Neut % (Auto) 61.5 Lymph % (Auto) 29.5 Andrew % (Auto) 5.2 Eos % (Auto) 2.7 Baso % (Auto) 0.6 Absolute Neuts (auto) 6.3 Absolute Lymphs (auto) 3.00 Nucleated RBC % 0 Sodium 137 Potassium 3.5 Chloride 104 Carbon Dioxide 25.0 Anion Gap 8 BUN 9 Creatinine 0.75 Estim Creat Clear Calc 107.33 Est GFR (MDRD) Af Amer 111 Est GFR (MDRD) Non-Af 92 BUN/Creatinine Ratio 11.9 Glucose 240 H Calcium 9.2 Radiography Diagnostic Testing: Clinical Impression(s) from Imaging Studies Chest CTA 07/03/21 19:35 IMPRESSION: No pulmonary embolism. Electronically Signed: Efren Reis MD at 20:18 EDT , Discharge Plan Triage Chief Complaint: Abn Labs ED Provider: Miguel Lala Dx/Rx/DC Orders Clinical Impression: COVID-19, Chest wall muscle strain Instructions: Coronavirus Disease 2019 (COVID-19): Caring for Yourself or Others Prescriptions: No Action metformin 500 MG tablet 500 mg PO BID RF: 0 colestipol 1 GM tablet 1 gm PO DAILY RF: 0 bupropion HCl 300 MG tablet extended release 24 hr 300 mg PO DAILY RF: 0 liraglutide 0.6 MG/0.1 ML pen injector 1.8 mg SQ DAILY RF: 0 Primary Care Provider: Gigi Carrillo Referrals: Gigi Carrillo, [Primary Care Provider] - (Call for instructions on follow-up) Activity Restrictions/Additional Instructions: Try to get a home portable pulse oximeter and closely watch your oxygen levels periodically. If you stay below 90% for more than a minute or so, and/or you are feeling like your breathing is getting worse, return to the emergency department for further evaluation. Disposition Disposition: Home, Self Care
[2021-07-03] MEDS: 0.9% Normal Saline 1,000 ML 999 ML IV (18:50)
[2021-07-03 19:01] LABS: Absolute Neutrophil Count 6.3 X10^3/uL (2.0-7.7); Basophil# 0.06 X10^3/uL; Basophil% 0.6 % (0-1); Eosinophil# 0.27 X10^3/uL; Eosinophils% 2.7 % (0-5); Hematocrit 42.1 % (37-47); Hemoglobin 14.4 g/dL (12.0-15.0); Lymphocyte % 29.5 % (19-41); Mean Corp Hgb Conc 34.2 g/dL (32-36); Mean Corpuscular Hgb 29.8 pg (27.0-32.0); Mean Platelet Vol. 9.9 fl (6.2-12.0); Monocyte# 0.53 X10^3/uL; Monocyte% 5.2 % (0-10); NRBC Flagged by Analyzer 0 % (0-5); Neutrophil # 6.26 X10^3/uL (2.7-7.7); Neutrophil % 61.5 % (47-70); Platelet Count 298 K/mm3 (150-450); RBC Distribution Width CV 11.7 % (11.6-14.6); RBC Distribution Width SD 36.9 fl (35.1-43.9); Red Blood Count 4.84 M/mm3 (4.2-5.4); White Blood Count 10.2 K/mm3 (4.4-11.0)
[2021-07-03 19:22] LABS: Anion Gap 8 (5-15); BUN 9 mg/dL (7-18); BUN/Creat Ratio 11.9 RATIO (10-20); Calcium,Total 9.2 mg/dL (8.5-10.1); Chloride 104 mmol/L (98-107); Creatinine, Serum 0.75 mg/dL (0.55-1.02); EST Glomerular Filtration Rate 92 mL/min (>60); Est Glom Filt Rate - Afr Amer 111 mL/min (>60); Estimated Creatinine Clearance 107.33 ml/min; Glucose 240 mg/dL (74-106); Potassium 3.5 mmol/L (3.5-5.1); Sodium Level 137 mmol/L (136-145)
--- NOTE | 2021-07-03 19:35 | CT_ITS ---
EXAM: CT Angiography Chest Without and With Intravenous Contrast CLINICAL INDICATION: 36 years old, Female; covid, cp, elevated d-dimer TECHNIQUE: Helically acquired angiography images were obtained of the chest without and with intravenous contrast. This CT exam was performed using one or more of the following dose reduction techniques: automated exposure control, adjustment of the mA and/or kV according to patient size, and/or use of iterative reconstruction technique. This report was created using Numerate report generation technology. MIP reconstructed images were created and reviewed. CONTRAST: IV 100mL Isovue-370 RADIATION DOSE: CTDIvol = 14.84 mGy, DLP = 574.65 mGy-cm COMPARISON: None. FINDINGS: Pulmonary arteries: Unremarkable. Normal in caliber. No pulmonary embolism. Aorta: Unremarkable. Normal in caliber. No evidence of dissection. Great vessels of aortic arch: Unremarkable. Normal in caliber. No evidence of dissection. Lungs and pleural spaces: Unremarkable. No mass. No consolidation or edema. No pleural effusion or thickening. No pneumothorax. Heart: Unremarkable. Heart size is normal. No pericardial effusion. No signs of right heart strain, ratio of right ventricle to left ventricle measures less than 1. Mediastinum: Unremarkable. No mediastinal or hilar adenopathy. Esophagus is unremarkable. No hiatal hernia. Thyroid: Unremarkable. No thyroid lesions. Bones/joints: Unremarkable. No suspicious lytic or blastic abnormality. CT/CTA Chest W/WO Contrast IMPRESSION: No pulmonary embolism. Electronically Signed: Efren Reis MD at 20:18 EDT ,
[2021-07-03 19:54] VITALS: BP 141/91; PULSE 85; RESP 18; O2SAT 100
[2021-07-03 21:00] VITALS: BP 149/92; PULSE 70; RESP 28; O2SAT 99
[2021-07-03 21:33] VITALS: BP 149/92; PULSE 70; RESP 24; O2SAT 99
== END 2021-07-03 21:34 | disposition home or self-care (01) ==
PROVIDERS: Emergency Provider Emergency Medicine; PCP Student in an Organized Health Care Education/Training Program; Visit Provider Emergency Medicine
DX: U07.1 COVID-19 (principal); E11.9 Type 2 diabetes mellitus without complications; S29.011A Strain of muscle and tendon of front wall of thorax, initial encounter; X58.XXXA Exposure to other specified factors, initial encounter; J10.1 Influenza due to other identified influenza virus with other respiratory manifestations; Z28.310 Unvaccinated for COVID-19; Z28.9 Immunization not carried out for unspecified reason; Z79.84 Long term (current) use of oral hypoglycemic drugs
CPT/HCPCS: 71275; 80048; 85025; 96360; 99283; J7030; Q9967

== ENCOUNTER → 2022-03-06 | Outpatient (CLI) | payer MEDICAID, SELFPAY ==
--- NOTE | 2022-03-06 15:14 | VDLE_ITS ---
Reason For Study: Pain/swelling Procedure LEFT This is a venous duplex using B-mode, color GSV is normal. flow and spectral Doppler. CFV is compressible, spontaneous, phasic, Exam performed in department. competent, and demonstrates normal A preliminary report was called and/or faxed augmentation. to [facility]. FV is compressible, spontaneous, phasic, competent and demonstrates normal augmentation. POP V is compressible, spontaneous, phasic, competent and demonstrates normal augmentation. T/P Trunk is compressible. PTV is compressible. LT PerV is compressible. VL/Venous Duplex US, Unilateral Interpretation Summary Deep veins of the left lower extremity are patent and compressible segmentally. There is no evidence of left lower extremity deep vein thrombosis. Valvular competence appears intac t within the proximal deep venous system on the left . The left great saphenous vein appears patent a nd compressible segmentally. Ordering Physician: Ilana Holder Referring Physician: Gigi Carrillo Performed By: Jessika Miguel RVT
== END | disposition home or self-care (01) ==
LOC: CVS 15:13
PROVIDERS: PCP Student in an Organized Health Care Education/Training Program; Referring Provider Nurse Practitioner Family; Visit Provider Nurse Practitioner Family
DX: M79.662 Pain in left lower leg (principal); M79.89 Other specified soft tissue disorders; Z98.890 Other specified postprocedural states
CPT/HCPCS: 93971

== ENCOUNTER 2022-05-14 09:13 | Emergency (ER) | payer MEDICAID, SELFPAY ==
[2022-05-14 09:14] VITALS: BP 175/107; PULSE 75; RESP 18; TEMP 35.4; O2SAT 98; BMI 34.3
--- NOTE | 2022-05-14 10:01 | EX.ED.DYSGE1 ---
HPI History of Present Illness Chief Complaint: Hyperglycemia Informant: patient Narrative Narrative: Patient does not feel well this morning. She has malaise, headache, fatigue, she has had a mild nonproductive cough, and she has some pain in her right low back that feels like my kidney. She denies any fevers or chills. No vomiting or diarrhea or abdominal/chest discomfort. No dyspnea. She has had urinary frequency, her blood sugars been out of control, she is on metformin and states her doctor has been trying to get her on the Trulicity but has not been able to get it for the last month or 2, her sugars have been between 200-400, last night they were in the 400 range and she was not feeling like this, but this morning she is feeling poorly and her sugars are in the 300s. Unvaccinated against COVID and influenza. When asked if she has not been around anyone that she knows of who has been sick she states yes lots of people. [facility] Medical History delivery delivered Cholecystectomy planned Diabetes Diarrhea H/O gastric ulcer Knee pain Leg cramps Migraine headache Severe headache unexplained bruises Home Medications bupropion HCl 300 mg 24 hr tablet, extended release 300 mg PO DAILY 07/31/17 [History Last Taken 02/17/20] colestipol 1 gram tablet 1 gm PO DAILY 07/31/17 [History Last Taken 02/17/20] metformin 500 mg tablet 500 mg PO BID 07/31/17 [History Last Taken 02/17/20] liraglutide 0.6 mg/0.1 mL (18 mg/3 mL) subcutaneous pen injector 1.8 mg SQ DAILY 02/24/20 [History Last Taken 02/17/20] Allergy/AdvReac Type Severity Reaction Status Date / Time macadamia nut oil Allergy Rash Verified 06/07/21 13:59 Family History (Reviewed 02/23/20 @ 11:17 by Desirae Ndiaye RANGE MANAGEMENT SPECIALIST, RANGE MANAGEMENT SPECIALIST-C) Mother Breast cancer Kidney disease Ovarian cancer Pancreatic cancer Surgical History H/O foot surgery Hx of foot surgery Social History Smoking Status: Never smoker ROS ROS ED Constitutional Constitutional ED: Reports body ache(s), fatigue and malaise; Denies chills or fever(s) Eyes Eyes: Denies change in vision or diplopia ENT ENT ED: Denies rhinorrhea or sore throat Cardiovascular Cardiovascular: Denies chest pain or palpitations Respiratory/Chest Respiratory/Chest: Reports cough; Denies dyspnea Gastrointestinal Gastrointestinal: Denies abdominal pain, diarrhea, nausea or vomiting Genitourinary Genitourinary ED: Reports urinary frequency; Denies dysuria or hematuria Musculoskeletal Musculoskeletal: Reports back pain; Denies neck pain Integumentary Denies abscess or rash Neurologic Neurologic: Reports headache(s); Denies paresthesias or weakness Psychiatric Psychiatric: Denies anxiety or suicidal thoughts EXAM Physical Exam Const Vital Signs: 05/14/22 09:14 05/14/22 11:37 Temperature 95.8 F L Temperature Source Temporal Pulse Rate 75 Respiratory Rate 18 Blood Pressure 175/107 H 148/83 H Blood Pressure Mean 129 104 Pulse Ox 98 Oxygen Delivery Method Room Air Positive well nourished and well developed Constitutional Narrative: Well-appearing in no distress. Conversive in full sentences without difficulty. General Appearance ED: well developed and NAD HEENT Reports moist mucous membranes normocephalic and atraumatic Eyes PERRL and EOMs intact bilaterally Neck full ROM, no lymphadenopathy and supple Resp normal respiratory effort and clear to auscultation bilaterally Cardio regular rate, regular rhythm and no murmurs Rate: Negative for tachycardic GI non-tender and non-distended Auscultation: normoactive bowel sounds Palpation: soft Back/Spine Back/Spine Narrative: Mild right CVA tenderness. Normal on inspection. Not on the left. General Back: other FROM Extremity normal to inspection General Extremety ED: Negative for edema, pulses abnormal or tenderness General Extremity: Negative for edema or pulses abnormal Neuro oriented x3, CN's II-XII intact bilaterally and no sensory deficits noted Sensorium / Orientation: awake and alert Motor Exam: strength 5/5 throughout Skin no rashes or lesions noted and no wounds MDM MDM MDM Narrative Medical decision making narrative: Patient was mildly hyperglycemic, 288 on the chemistry panel, 291 just prior to that, and after giving her insulin she came down to around 288 again. She feels poorly, even after a liter of fluid but her pressure went down from 175/107 to 148/83, so I held off on giving her antihypertensive medication. COVID and influenza swabs are negative. Urine shows no sign of infection. The rest of her labs really are normal. Given her another liter of fluid, will recheck her blood sugar and blood pressure, if they are stable, she will be discharged to follow-up as an outpatient we will give her a work note. Broad differential here including viral infection could be causing her to feel poorly, and/or her hyperglycemia, or transient hypertension. Follow-up advised Lab Data Attestation: I reviewed the patient's lab results. Labs: Laboratory Results - last 24 hr 05/14/22 05/14/22 05/14/22 10:10 10:10 10:28 WBC 8.3 RBC 4.99 Hgb 14.5 Hct 44.3 MCV 88.8 MCH 29.1 MCHC 32.7 RDW Std Deviation 39.8 RDW Coeff of Tristan 12.3 Plt Count 239 MPV 10.2 Immature Gran % (Auto) 0.400 Neut % (Auto) 63.3 Lymph % (Auto) 25.5 [place] % (Auto) 6.1 Eos % (Auto) 4.2 Baso % (Auto) 0.5 Absolute Neuts (auto) 5.3 Absolute Lymphs (auto) 2.12 Nucleated RBC % 0 Sodium 136 Potassium 3.8 Chloride 103 Carbon Dioxide 25.0 Anion Gap 8 BUN 10 Creatinine 0.80 Estim Creat Clear Calc 99.64 Est GFR (MDRD) Af Amer 103 Est GFR (MDRD) Non-Af 85 BUN/Creatinine Ratio 12.4 Glucose 288 H Calcium 9.2 Urine Color Urine Clarity Urine pH Ur Specific [place] Urine Protein Urine Glucose (UA) Urine Ketones Urine Occult Blood Urine Nitrite Urine Bilirubin Urine Urobilinogen Ur Leukocyte Esterase Urine RBC Urine WBC Ur Squamous Epith Cells Urine Bacteria Urine Mucus Urine Test POC Glucose 291 H 05/14/22 05/14/22 10:36 11:28 WBC RBC Hgb Hct MCV MCH MCHC RDW Std Deviation RDW Coeff of Tristan Plt Count MPV Immature Gran % (Auto) Neut % (Auto) Lymph % (Auto) [place] % (Auto) Eos % (Auto) Baso % (Auto) Absolute Neuts (auto) Absolute Lymphs (auto) Nucleated RBC % Sodium Potassium Chloride Carbon Dioxide Anion Gap BUN Creatinine Estim Creat Clear Calc Est GFR (MDRD) Af Amer Est GFR (MDRD) Non-Af BUN/Creatinine Ratio Glucose Calcium Urine Color Yellow Urine Clarity Clear Urine pH 5.0 Ur Specific [place] 1.025 Urine Protein 30 H Urine Glucose (UA) 1000 H Urine Ketones 15 H Urine Occult Blood Negative Urine Nitrite Negative Urine Bilirubin Negative Urine Urobilinogen Normal Ur Leukocyte Esterase Negative Urine RBC 0 SEEN Urine WBC 0 SEEN Ur Squamous Epith Cells 0-5 SEEN Urine Bacteria 1+ Urine Mucus 0 SEEN Urine Test Negative POC Glucose 284 H Rhythm Strip Rhythm Strip: Sinus Rhythm Rate: 75 Ectopy: None Discharge Plan Triage Chief Complaint: Hyperglycemia ED Provider: Miguel Lala Dx/Rx/DC Orders Clinical Impression: Uncontrolled type 2 diabetes mellitus with hyperglycemia, Episode of hypertension, Malaise Instructions: ED Diabetic Hyperglycemia Prescriptions: No Action metformin 500 MG tablet 500 mg PO BID colestipol 1 GM tablet 1 gm PO DAILY bupropion HCl 300 MG tablet extended release 24 hr 300 mg PO DAILY liraglutide 0.6 MG/0.1 ML pen injector 1.8 mg SQ DAILY Stand Alone Forms: ED Work / School Excuse Primary Care Provider: Gigi Carrillo Referrals: Gigi Carrillo DO [Primary Care Provider] - 3-5 Days Disposition Disposition: Home, Self Care
[2022-05-14 10:15] LABS: Absolute Lymphocyte Count 2.12 X10^3/uL (0.83-4.51); Absolute Neutrophil Count 5.3 X10^3/uL (2.0-7.7); Basophil# 0.04 X10^3/uL; Basophil% 0.5 % (0-1); Eosinophil# 0.35 X10^3/uL; Eosinophils% 4.2 % (0-5); Hematocrit 44.3 % (37-47); Hemoglobin 14.5 g/dL (12.0-15.0); Lymphocyte # 2.12 X10^3/ul (0.83-4.51); Lymphocyte % 25.5 % (19-41); Mean Corp Hgb Conc 32.7 g/dL (32-36); Mean Corpuscular Hgb 29.1 pg (27.0-32.0); Mean Corpuscular Volume 88.8 fL (81-99); Mean Platelet Vol. 10.2 fl (6.2-12.0); Monocyte# 0.51 X10^3/uL; Monocyte% 6.1 % (0-10); NRBC Flagged by Analyzer 0 % (0-5); Neutrophil # 5.28 X10^3/uL (2.7-7.7); Neutrophil % 63.3 % (47-70); Platelet Count 239 K/mm3 (150-450); RBC Distribution Width CV 12.3 % (11.6-14.6); RBC Distribution Width SD 39.8 fl (35.1-43.9); Red Blood Count 4.99 M/mm3 (4.2-5.4); White Blood Count 8.3 K/mm3 (4.4-11.0)
[2022-05-14 10:30] LABS: Anion Gap 8 (5-15); BUN 10 mg/dL (7-18); BUN/Creat Ratio 12.4 RATIO (10-20); Calcium,Total 9.2 mg/dL (8.5-10.1); Chloride 103 mmol/L (98-107); EST Glomerular Filtration Rate 85 mL/min (>60); Est Glom Filt Rate - Afr Amer 103 mL/min (>60); Estimated Creatinine Clearance 99.64 ml/min; Glucose 288 mg/dL (74-106); Potassium 3.8 mmol/L (3.5-5.1); Sodium Level 136 mmol/L (136-145)
[2022-05-14] MEDS: 0.9% Normal Saline 1,000 ML 999 ML IV ×2 (10:31→11:53)
[2022-05-14] MEDS: Insulin Lispro 100 UNIT/ML INSULN.PEN 10 UNIT SC (10:35)
[2022-05-14 10:43] LABS: Mucous, Urine 0 SEEN /hpf (<or=2+); Red Blood Cells-Urine 0 SEEN /hpf (0-5); White Blood Cells 0 SEEN /hpf (0-5)
[2022-05-14 10:45] LABS: Color, Urine Yellow (Yellow); Glucose, Dipstick 1000 mg/dl (Normal); Ketone-Dipstick 15 mg/dl (Negative); Leukocyte Esterase-Dipstick Negative /ul (Negative); Nitrite-Dipstick Negative (Negative); Occult Blood-Urine Negative /ul (Negative); Protein-Dipstick 30 mg/dl (Negative); Specific Gravity, Urine 1.025 (1.002-1.030); Urine Bilirubin Dipstick Negative (Negative); Urine Clarity Clear (Clear); Urine Urobilinogen Normal (Normal)
[2022-05-14 10:51] LABS: Bacteria 1+ /hpf (None Seen); Squamous Epithelial Cells - UA 0-5 SEEN /hpf (5-10)
[2022-05-14 10:54] LABS: Internal QC Validated? YES +Cl - CLEAR BKGD; Pregnancy, Urine Negative Negative
[2022-05-14 10:55] LABS: Bedside Glucose 291 mg/dL (74-106)
[2022-05-14 11:37] VITALS: BP 148/83
[2022-05-14 11:55] LABS: Bedside Glucose 284 mg/dL (74-106)
== END 2022-05-14 12:58 | disposition home or self-care (01) ==
PROVIDERS: Emergency Provider Emergency Medicine; PCP Student in an Organized Health Care Education/Training Program; Visit Provider Emergency Medicine
DX: E11.65 Type 2 diabetes mellitus with hyperglycemia (principal); I10 Essential (primary) hypertension; R53.81 Other malaise; Z79.84 Long term (current) use of oral hypoglycemic drugs
CPT/HCPCS: 80048; 81001; 81025; 82962; 85025; 87428; 96360; 96361; 99283; J7030; A4216

== ENCOUNTER → 2022-12-30 | Outpatient (CLI) | payer MEDICAID, SELFPAY | END | disposition home or self-care (01) | LOC: LABSPEC 10:16 | PROVIDERS: PCP Student in an Organized Health Care Education/Training Program; Referring Provider Otolaryngology; Visit Provider Otolaryngology | DX: J32.9 Chronic sinusitis, unspecified (principal) | CPT/HCPCS: 87070; 87205 ==

== ENCOUNTER 2023-07-04 07:02 | Day surgery (SDC) | payer MEDICAID, SELFPAY ==
--- NOTE | 2023-06-11 09:20 | PCM.HP.BLA ---
History and Physical Date of Admission: 06/12/23 Pre-Op History and Physical ? HPI: The patient is a 38 year old female presenting for pre-operative visit. She is scheduled for laparoscopic bilateral salpingectomy, for desires sterilization on Date to be determined . Procedure discussed along with risks, benefits and complications. Other alternatives discussed for management. Consent form signed? Yes. ? ? PAST MEDICAL HISTORY PAST MEDICAL HISTORY Diagnosis Date ? Abnormal Pap smear of cervix ? ? ascus cannot rule out high grade ? Diabetes mellitus type 2 in obese ? ? Migraine headache ? ? Obesity ? ? ? PAST SURGICAL HISTORY PAST SURGICAL HISTORY Procedure Laterality Date ? SECTION HX ? 03/24/2013 ? CHOLECYSTECTOMY HX ? ? ? INSERTION OF IUD ? 2016 ? Mirena IUD removed 10/20/2020 ? KYLEENA IUD ? 10/20/2020 ? NEXPLANON INSERTION ? 05/10/2013 ? OSTECTOMY CALCANEUS SPUR W/WO PLNTAR FASCIAL RLS Left ? ? Dr. Nath ? REPAIR OF NASAL SEPTUM ? CURRENT MEDICATIONS Current Outpatient Medications Medication Sig Dispense Refill ? levonorgestrel (KYLEENA) 17.5 mcg/24 hrs (5 yrs) 19.5 mg IUD 1 Each by INTRAUTERINE route one time only. ? ? ? colestipol (COLESTID) 1 gram tablet Take 1 tablet by mouth once daily. For Diarrhea Post Gall Bladder Removal 90 tablet 1 ? flash glucose sensor (FREESTYLE EDIN 14 DAY SENSOR) kit Apply and use as directed. Dx: Uncontrolled type 2 diabetes without insulin. 1 Kit 3 ? flash glucose scanning reader (FREESTYLE EDIN 3 READER) 1 Each once daily. 1 Each 5 ? metFORMIN ER (GLUCOPHAGE XR) 500 mg 24 hr tablet Take 1 tablet by mouth daily with breakfast. 90 tablet 2 ? tirzepatide (MOUNJARO) 7.5 mg/0.5 mL pen injector Inject 7.5 mg subcutaneously one time a week. 2 mL 2 ? escitalopram oxalate (LEXAPRO) 10 mg tablet Take 1 tablet by mouth once daily. 30 tablet 5 ? EPINEPHrine (EPIPEN) 0.3 mg/0.3 mL auto-injector Use for allergic reaction 2 Each 1 ? Lancets lancets Test blood sugar(s)2 times daily. Dx: uncontrolled type 2 DM 100 Each 11 ? insulin needles, DISPOSABLE, (BD INSULIN PEN NEEDLE UF) 31 gauge x 5/16 use once daily as directed 100 Each 1 ? blood sugar diagnostic (BLOOD GLUCOSE TEST) test strip Test blood sugar(s) 2 times daily. Dx: uncontrolled type 2 DM 50 Strip 11 ? famotidine (PEPCID) 40 mg tablet Take 40 mg by mouth as needed. ? ? 0 ? Phenyleph-Shark Alc-Vtzh-Mdz (HEMORRHOIDAL) 0.25-3-12 % crea by RECTAL route twice daily. 52 g 1 ? No current facility-administered medications for this visit. ? ? ALLERGIES: Macadamia Nut Oil and Meloxicam ? PERSONAL HISTORY: SOCIAL HISTORY Social History ? Tobacco Use ? Smoking status: Never ? Smokeless tobacco: Never Vaping Use ? Vaping Use: Never used Substance Use Topics ? Alcohol use: Yes ? ? Comment: Rarely ? Drug use: No ? FAMILY HISTORY: FAMILY HISTORY FAMILY HISTORY Problem Relation Age of Onset ? No Known Problems Mother ? ? Cancer Father ? ? pancreatic and renal. ? No Known Problems Brother ? ? No Known Problems Maternal Grandmother ? ? Diabetes Maternal Grandfather ? ? Diabetes Paternal Grandfather ? ? No Known Problems Son ? ? Breast Cancer Maternal Aunt ? ? Cervical Cancer Paternal Aunt ? ? x2- and one cousin ? other (lymphomia) Other ? ? maternal cousin ? other (leukemia) Other ? ? cousin ? ? REVIEW OF SYMPTOMS: negative except as noted above- Denies CP, SOB, dizziness PHYSICAL EXAMINATION: ? VITALS: Blood pressure 118/70, weight 205 lb 9.6 oz (93.3 kg), last menstrual period 12/09/2022. ? GENERAL: The patient is well nourished, well hydrated in no acute distress. , The patient is oriented to time, place, and person. NECK: full range of motion LUNGS: Clear to auscultation bilaterally. no wheezes, rhonchi or rales HEART: Regular rate and rhythm, Normal heart sounds, and No murmurs or gallops ? IMPRESSION: 38yo female that desires permanent sterilization. ? PLAN: Laparoscopic bilateral salpingectomy ? Pt has been counseled on risks/benefits and alternatives of surgery including but not limited to anesthesia, bleeding, infection, injury to pelvic structures including bowel, bladder, ureters and vessels. Pt wishes to proceed with surgery at this time. Risk of regret reviewed. Plan to leave kyleena in place. ? Type 2 DM well controlled- continue medications. Pre op labs and EKG ordered. ? Title 19 signed on 05/21/23 ? Pre and post op instructions reviewed today ? I have reviewed and updated past medical and surgical history, medications and allergies Natasha Condon MD Office Visit on 05/22/2023 Office Visit on 05/22/2023 Note shared with patient
--- NOTE | 2023-07-03 13:02 | HP.PCM.OB_ITS ---
History and Physical Date of Admission: 07/04/23 PRE OP DONE VIA ZOOM: pt identified by name and . Consent obtained: ? Pre-Op History and Physical ? HPI: The patient is a?38 year old?female?presenting for pre-operative visit. She is scheduled for?laparoscopic bilateral salpingectomy, for?desires sterilization? On 07/04/23?. ??Procedure discussed along with risks, benefits and complications. ?Other alternatives discussed for management. Consent form signed??will sign day of surgery ? PAST MEDICAL HISTORY ? ? ? PAST MEDICAL HISTORY Diagnosis Date ? Abnormal Pap smear of cervix ? ? ascus cannot rule out high grade ? Diabetes mellitus type 2 in obese ? ? Migraine headache ? ? Obesity ? PAST SURGICAL HISTORY ? PAST SURGICAL HISTORY Procedure Laterality Date ? SECTION HX ? 03/24/2013 ? CHOLECYSTECTOMY HX ? ? ? INSERTION OF IUD ? 2017 ? Mirena IUD removed 10/20/2020 ? KYLEENA IUD ? 10/20/2020 ? NEXPLANON INSERTION ? 05/10/2013 ? OSTECTOMY CALCANEUS SPUR W/WO PLNTAR FASCIAL RLS Left ? ? Dr. Nath ? REPAIR OF NASAL SEPTUM ? CURRENT MEDICATIONS ? Current Outpatient Medications Medication Sig Dispense Refill ? levonorgestrel (KYLEENA) 17.5 mcg/24 hrs (5 yrs) 19.5 mg IUD 1 Each by INTRAUTERINE route one time only. ? ? ? colestipol (COLESTID) 1 gram tablet Take 1 tablet by mouth once daily. For Diarrhea Post Gall Bladder Removal 90 tablet 1 ? flash glucose sensor (FREESTYLE EDIN 14 DAY SENSOR) kit Apply and use as directed. Dx: Uncontrolled type 2 diabetes without insulin. 1 Kit 3 ? flash glucose scanning reader (FREESTYLE EDIN 3 READER) 1 Each once daily. 1 Each 5 ? metFORMIN ER (GLUCOPHAGE XR) 500 mg 24 hr tablet Take 1 tablet by mouth daily with breakfast. 90 tablet 2 ? tirzepatide (MOUNJARO) 7.5 mg/0.5 mL pen injector Inject 7.5 mg subcutaneously one time a week. 2 mL 2 ? escitalopram oxalate (LEXAPRO) 10 mg tablet Take 1 tablet by mouth once daily. 30 tablet 5 ? EPINEPHrine (EPIPEN) 0.3 mg/0.3 mL auto-injector Use for allergic reaction 2 Each 1 ? Lancets lancets Test blood sugar(s)2 times daily. ?Dx: uncontrolled type 2 DM 100 Each 11 ? insulin needles, DISPOSABLE, (BD INSULIN PEN NEEDLE UF) 31 gauge x 5/16 use once daily as directed 100 Each 1 ? blood sugar diagnostic (BLOOD GLUCOSE TEST) test strip Test blood sugar(s) 2 times daily. ?Dx: uncontrolled type 2 DM 50 Strip 11 ? famotidine (PEPCID) 40 mg tablet Take 40 mg by mouth as needed. ? ? 0 ? Phenyleph-Shark Hoh-Qbdd-Byo (HEMORRHOIDAL) 0.25-3-12 % crea by RECTAL route twice daily. 52 g 1 ? No current facility-administered medications for this visit. ? ? ALLERGIES:?Macadamia Nut Oil and Meloxicam ? PERSONAL HISTORY:? SOCIAL HISTORY Social History ? Tobacco Use ? Smoking status: Never ? Smokeless tobacco: Never Vaping Use ? Vaping Use: Never used Substance Use Topics ? Alcohol use: Yes ? ? Comment: Rarely ? Drug use: No ?? ? FAMILY HISTORY:? FAMILY HISTORY ? FAMILY HISTORY Problem Relation Age of Onset ? No Known Problems Mother ? ? Cancer Father ?pancreatic and renal. ? No Known Problems Brother ? ? No Known Problems Maternal Grandmother ? ? Diabetes Maternal Grandfather ? ? Diabetes Paternal Grandfather ? ? No Known Problems Son ? ? Breast Cancer Maternal Aunt ? ? Cervical Cancer Paternal Aunt ?x2- and one cousin ? other (lymphomia) Other ?maternal cousin ? other (leukemia) Other ?cousin ? ? REVIEW OF SYMPTOMS: negative except as noted above- Denies CP, SOB, dizziness ? PHYSICAL EXAMINATION: ? VITALS:?None- VIDEO ? GENERAL:??The patient is well nourished, well hydrated in no acute distress. ?, The patient is oriented to time, place, and person. NECK:?full range of motion? ? IMPRESSION:?38yo female that desires permanent sterilization.? ? PLAN:???Laparoscopic bilateral salpingectomy? ? Pt has been counseled on risks/benefits and alternatives of surgery including but not limited to anesthesia, bleeding, infection, injury to pelvic structures including bowel, bladder, ureters and vessels. ?Pt wishes to proceed with surgery at this time.?Risk of regret reviewed. Plan to leave kyleena in place. ? Type 2 DM well controlled- continue medications. Pre op labs and EKG ordered. ? Title 19 signed on 05/21/23 ? Pre and post op instructions reviewed today ? I have reviewed and updated past medical and surgical history, medications and allergies? ? Natasha Villatoro MD ?3:54 PM [facility] on 07/02/2023 [facility] on 07/02/2023 Note shared with patient
[2023-07-04] VITALS (11 sets, daily range): BP systolic 129–146; BP diastolic 72–106; PULSE 67–90; RESP 14–16; TEMP 36.4–36.7; O2SAT 95–100; BMI 31.0
--- NOTE | 2023-07-04 | FALS_PTH ---
PATIENT: FREYA ESPARZA LOC: [facility] [place][id number] AGE/SX: 38/F ROOM: RE07/04/[address]: Dr. Natasha Villatoro, MDDOB: 1985 BED: DIS: 07/04/2023 SPEC #: [id number] RECD: 07/04/23 12:47 STATUS: CHILO BEN #: [id number] PABLO: 07/04/23 00:[address]: Natasha Villatoro DEPT: SURGICAL PATHOLOGY RECD BY: Camron Roldan ENTERED: 07/04/23 12:47 SP TYPE: FALL TUBES OTHR DR: Dr. Gigi Carrillo, DO Tissues: Fallopian tube Procedures: Surgery Specimen Level II HEADER OPERATION: Laparoscopic, Salpingectomy PRE-OP DIAGNOSIS: Desires permanent sterilization TISSUE SUBMITTED: Bilateral fallopian tubes MICROSCOPIC DIAGNOSIS Bilateral fallopian tubes, salpingectomy: Bilateral fallopian tubes, no pathologic diagnosis. MAI: 07/07/2023 MICROSCOPIC DESCRIPTION Slides are reviewed. GROSS DESCRIPTION Received in fixative is one container labeled with the patient's name and designated bilateral fallopian tubes. The specimen consists of bilateral fallopian tubes including fimbrial ends measuring 5.0 cm in length and 0.5 cm in diameter and similar dimension for each fallopian tube. The fallopian tubes are not identified as right or left. Sections reveal unremarkable cut surfaces. Ink Technician sections are submitted in two cassettes with each cassette containing one fallopian tube. / MAI: 07/04/23 TC:4 CPT: 28362 x2
[2023-07-04 07:31] LABS: Internal QC Validated? YES +Cl - CLEAR BKGD; Pregnancy, Urine Negative Negative
--- NOTE | 2023-07-04 07:38 | EKG12_ITS ---
Test Reason : PRE OP Blood Pressure : / mmHG Vent. Rate : 076 BPM Atrial Rate : 076 BPM P-R Int : 160 ms QRS Dur : 094 ms QT Int : 392 ms P-R-T Axes : 059 069 031 degrees QTc Int : 441 ms Normal sinus rhythm Nonspecific ST abnormality Abnormal ECG Confirmed by JANNETH BARILLAS, ERICK ([id number]), newspaper or periodical editor ELIEZER MOSS ([id number]) on 07/04/2023 10:45:59 AM Referred By: Natasha Condon Confirmed By:ERICK LAGUNAS MD
[2023-07-04] MEDS: Lactated Ringers 1,000 ML 15 ML IV (07:44)
--- NOTE | 2023-07-04 08:36 | DCINST_ITS ---
Discharge Instructions Diet Discharge Diet: No restrictions Activity May resume sexual activity in: 2 weeks Lifting Restrictions: 20-25 lbs Dressing / Incision Call your doctor if your incision/area has: Continuous Slow Oozing, Sudden Increased Bleeding, Increased Pain/ Swelling, Increased Redness, Foul Smelling Discharge and Swelling at the incision site Call your doctor if you observe: Fever of 101 or Higher, Inability to urinate, Inability to have a bowel movement, Using more than 1 pad per hour and Uncontrolled pain Additional Dressing/Incision Instructions:: You have skin glue over your incision sites, do not pick off. You may shower and let the soap and water run over the incision sites and dab dry. Follow Up Care Please Follow Up With: Natasha Condon MD When: 1-2 weeks post OP if you need an appointment please call [phone] Test Results: Test results from this visit will be discussed in further detail at your follow- up appointment, if applicable. Discharge Plan Admission Attending Provider: Natasha Condon Primary Care Provider: Gigi Carrillo Discharge Orders/Prescriptions Prescriptions: No Action metformin 500 MG tablet 500 mg PO DAILY colestipol 1 GM tablet 1 gm PO DAILY bupropion HCl 300 MG tablet extended release 24 hr 300 mg PO DAILY Mounjaro 10 mg/0.5 mL pen injector 10 mg subcut QWEEK Patient Comments: WILL BE STARTING TODAY 06/05/23 IF CHING HAS IN STOCK Referrals / Follow Up: Gigi Carrillo DO [Primary Care Provider] - Disposition Disposition (needs filled in before D/C Order can be placed): Home, Self Care
[2023-07-04] MEDS: Bupivacaine 0.5% PF 10 ML VIAL (09:29)
--- NOTE | 2023-07-04 09:31 | PCM.OPRPT ---
Report of Operation Date of Procedure: 07/04/23 Pre-Operative Diagnosis: sterilization request Post-Operative Diagnosis: Same, omental adhesions to anterior abdominal wall Surgery/Procedure Performed:: laparoscopic bilateral salpingectomy, Lysis of adhesions Description of Surgical Findings:: omental adhesions to anterior abdominal wall that needed to be taken down for visualization. no bowel content noted. taken down in clear spaces, good hemostasis. normal tubes and ovaries. uterus normal. Surgeon: Natasha Condon saddle and side wire stitcher: None Type of Anesthesia: General and Local Special Medications: 0.5% marcaine Specimen's removed: bilateral fallopian tubes Drains: none Estimated Blood Loss (mL): <5 Fluids Replaced: 700 Description of Procedure: placed in supine position she was given anesthesia. She was then placed in the [facility] stirrups and she was prepped and draped in normal sterile fashion. Bladder was drained prior to the start of procedure. At this time attention was turned to the vaginal portion where weighted speculum placed at posterior fornix vagina single-tooth tenaculum was used to gently grasp the internal the cervix. IUD strings appreciated. uterus was gently sounded to approximately 7cm. Uterine manipulator was placed without difficulty. Legs then placed in parallel with the abdomen the tenaculum and the weighted speculum were removed. 2 towel clamps were placed at level of umbilicus. Marcaine was injected infraumbilical and a small incision was made. The 5 mm trocar was placed under direct visualization. CO2 gas was used to insufflate the intra-abdominal cavity. At this time then the LLQ and RLQ ports were placed First Marcaine was injected and small incision was made a knife and the 5 mm trocars were placed. Omental adhesions were obscuring view- they were taken down using enseal - in clear spaces- good hemostasis. after adhesions taken down- the uterus tubes and ovaries appeared to be normal. At this time then tubes were traced back to the fimbriated ends. Enseal was used to coagulate and ligate along mesosalpynx bilaterally until tubes removed completely. Good hemostasis was appreciated. At this time procedure was deemed complete successful. The gas was desufflated on from the intra-abdominal cavity. The trochars were removed. Skin was closed using 4-0 Monocryl in a subcutaneous fashion. Dermabond glue was placed. Instrument lap and needle counts were correct ?2. Speculum placed- The uterine manipulator was removed. IUD strings still visualized- Vaginal sweep was performed it was negative. There were no complications anticipated normal postoperative course for this patient. Grafts/Implants Used: none Procedure Start Time: 09:07 Procedure Stop Time: 09:31 Complications none Admit VTE Documentation VTE Present on Admission: Yes VTE Mechan Device Prophylaxis: SCD's VTE Pharm Prophylaxis ordered?: No Reason prophylaxis not ordered:: Procedure Not Indicated
[2023-07-04 09:51] LABS: Bedside Glucose 155 mg/dL (74-106)
[2023-07-04 10:24] LABS: Bedside Glucose 184 mg/dL (74-106)
== END 2023-07-04 12:00 | disposition home or self-care (01) ==
LOC: SDC 07:04 → AC 07:05
PROVIDERS: Anesthesiology; PCP Student in an Organized Health Care Education/Training Program; Referring Provider Obstetrics & Gynecology; Visit Provider Obstetrics & Gynecology
PROC: (CPT 58661; principal; 2023-07-04 08:30)
DX: Z30.2 Encounter for sterilization (principal); E11.9 Type 2 diabetes mellitus without complications; E66.9 Obesity, unspecified; Z79.84 Long term (current) use of oral hypoglycemic drugs
CPT/HCPCS: 58661; 00840; 81025; 82962; 88302; 93005; J7120; C1760; J2405

== ENCOUNTER 2023-08-10 18:06 | Emergency (ER) | payer MEDICAID, SELFPAY ==
[2023-08-10 18:07] VITALS: BP 149/11; PULSE 118; RESP 20; TEMP 36.7; O2SAT 100; BMI 30.5
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
[2023-08-10 19:21] VITALS: BP 155/96; PULSE 111; RESP 25; TEMP 36.7; O2SAT 99
== END 2023-08-10 19:30 | disposition home or self-care (01) ==
PROVIDERS: Emergency Provider Emergency Medicine; PCP Student in an Organized Health Care Education/Training Program; Visit Provider Emergency Medicine
DX: S06.0XAA Concussion with loss of consciousness status unknown, initial encounter (principal); S16.1XXA Strain of muscle, fascia and tendon at neck level, initial encounter; V49.9XXA Car occupant (driver) (passenger) injured in unspecified traffic accident, initial encounter
CPT/HCPCS: 70450; 72125; 99282

== ENCOUNTER 2023-08-31 11:56 | Emergency (ER) | payer MEDICAID, SELFPAY ==
[2023-08-31 11:57] VITALS: BP 142/92; PULSE 92; RESP 18; TEMP 37; O2SAT 100; BMI 29.1
--- NOTE | 2023-08-31 12:03 | CT_ITS ---
STUDY: CT ABDOMEN AND PELVIS WITHOUT CONTRAST REASON FOR EXAM: Female, 38 years old. Right flank pain. RADIATION DOSAGE (If Supplied By Facility): CTDIvol = ( 8.79 ) mGy, DLP = ( 494.29 ) mGycm TECHNIQUE: Transaxial images were obtained from the dome of the diaphragm to the symphysis pubis without oral contrast, and without intravenous contrast. Sagittal and coronal images were reconstructed. Individualized dose optimization techniques were used for this CT. COMPARISON: Prior study dated: 05/12/2015 FINDINGS: Evaluation of the abdominal viscera is limited in the absence of intravenous contrast. LOWER THORAX: The visualized lung bases are clear. The visualized portions of the heart and pericardium are within normal limits. GALLBLADDER / BILE DUCTS: The patient is status post cholecystectomy. The common bile duct is normal in caliber. There are no calcified ductal stones. LIVER: The liver demonstrates an unremarkable unenhanced appearance. SPLEEN: The spleen is normal in size. PANCREAS: The pancreas demonstrates an unremarkable unenhanced appearance. ADRENAL GLANDS: The adrenal glands are within normal limits. KIDNEYS / BLADDER: There are no renal or ureteral stones. There is no hydronephrosis. There are no focal renal lesions identified on this noncontrast exam. The urinary bladder is partially distended and appears grossly unremarkable. STOMACH / BOWEL: Normal visualized stomach. There is no bowel obstruction or inflammation. The appendix is visualized and appears normal. PERITONEUM / RETROPERITONEUM: There is no abdominal or pelvic free air, free fluid or fluid collection. There is no abnormal soft tissue mass identified. There is no abdominal or pelvic lymphadenopathy. There is an intrauterine device in place. VESSELS: The aorta is normal in caliber. The IVC is unremarkable. BONES: There are no destructive osseous lesions. SOFT TISSUES: The visualized soft tissues are within normal limits. CT/Abdomen/Pelvis without Cont IMPRESSION: No acute abdominal or pelvic pathology. Electronically Signed: Leo Gardner MD at 13:20 EDT ,
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
[2023-08-31] MEDS: 0.9% Normal Saline (1000mL) 1,000 ML 999 ML IV (12:14)
[2023-08-31] MEDS: Ondansetron 4 MG/2 ML Vial IV (12:14)
[2023-08-31] MEDS: Ketorolac 15 MG/ML Vial IV (12:14)
[2023-08-31 12:18] LABS: Mucous, Urine 0 SEEN /hpf (<or=2+); Red Blood Cells-Urine 0 SEEN /hpf (0-5)
[2023-08-31 12:32] LABS: Absolute Lymphocyte Count 2.31 X10^3/uL (0.83-4.51); Absolute Neutrophil Count 4.8 X10^3/uL (2.0-7.7); Basophil# 0.09 X10^3/uL; Basophil% 1.1 % (0-1); Eosinophil# 0.21 X10^3/uL; Eosinophils% 2.6 % (0-5); Hemoglobin 12.9 g/dL (12.0-15.0); Lymphocyte # 2.31 X10^3/ul (0.83-4.51); Lymphocyte % 28.9 % (19-41); Mean Corp Hgb Conc 33.1 g/dL (32-36); Mean Corpuscular Hgb 29.5 pg (27.0-32.0); Mean Corpuscular Volume 89.2 fL (81-99); Mean Platelet Vol. 10.2 fl (6.2-12.0); Monocyte# 0.52 X10^3/uL; Monocyte% 6.5 % (0-10); NRBC Flagged by Analyzer 0 % (0-5); Neutrophil # 4.84 X10^3/uL (2.7-7.7); Neutrophil % 60.6 % (47-70); Platelet Count 303 K/mm3 (150-450); RBC Distribution Width CV 12.2 % (11.6-14.6); RBC Distribution Width SD 40.1 fl (35.1-43.9); Red Blood Count 4.37 M/mm3 (4.2-5.4)
[2023-08-31 12:37] LABS: Color, Urine Yellow (Yellow); Glucose, Dipstick 50 mg/dl (Normal); Ketone-Dipstick 5 mg/dl (Negative); Leukocyte Esterase-Dipstick 25 /ul (Negative); Nitrite-Dipstick Negative (Negative); Occult Blood-Urine 50 /ul (Negative); Protein-Dipstick 30 mg/dl (Negative); Urine Bilirubin Dipstick Negative (Negative); Urine Clarity Clear (Clear); Urine Urobilinogen 1 mg/dl (Normal)
[2023-08-31 12:43] LABS: Anion Gap 7 (5-15); BUN 8 mg/dL (7-18); Calcium,Total 9.1 mg/dL (8.5-10.1); Chloride 104 mmol/L (98-107); Creatinine, Serum 0.73 mg/dL (0.55-1.02); EST Glomerular Filtration Rate 94 mL/min (>60); Est Glom Filt Rate - Afr Amer 114 mL/min (>60); Estimated Creatinine Clearance 121.01 ml/min; Glucose 127 mg/dL (74-106); Potassium 3.1 mmol/L (3.5-5.1); Sodium Level 139 mmol/L (136-145)
[2023-08-31 12:44] LABS: White Blood Cells 0-5 SEEN /hpf (0-5)
[2023-08-31 12:46] LABS: Amorphous Sediment 2+; Bacteria 1+ /hpf (None Seen); Internal QC Validated? YES +Cl - CLEAR BKGD; Pregnancy, Urine Negative Negative; Record Kit Lot#,Urine Preg 772476; Squamous Epithelial Cells - UA 10-25 SEEN /hpf (5-10)
[2023-08-31] MEDS: Potassium Chloride Oral Tablet 20 MEQ 40 MEQ PO (13:38)
[2023-08-31 13:42] VITALS: BP 138/90; PULSE 96; RESP 18; TEMP 36.3; O2SAT 99
== END 2023-08-31 13:43 | disposition home or self-care (01) ==
PROVIDERS: Physician Assistant; Emergency Provider Emergency Medicine; PCP Student in an Organized Health Care Education/Training Program; Visit Provider Emergency Medicine
DX: R10.9 Unspecified abdominal pain (principal); E11.9 Type 2 diabetes mellitus without complications; E87.6 Hypokalemia; Z79.84 Long term (current) use of oral hypoglycemic drugs
CPT/HCPCS: 74176; 80048; 81001; 81025; 85025; 96361; 96374; 96375; 99283; A4216; J2405

== ENCOUNTER → 2024-02-06 | Outpatient (CLI) | payer MEDICAID, SELFPAY | END | disposition home or self-care (01) | PROVIDERS: PCP Student in an Organized Health Care Education/Training Program; Referring Provider Otolaryngology; Visit Provider Otolaryngology | DX: B37.9 Candidiasis, unspecified (principal) | CPT/HCPCS: 87070 ==

== ENCOUNTER 2024-05-09 17:51 | Emergency (ER) | payer MEDICAID, SELFPAY ==
[2024-05-09 17:52] VITALS: BP 153/102; PULSE 98; RESP 22; TEMP 36.6; O2SAT 100; BMI 28.8
--- NOTE | 2024-05-09 18:07 | EX.ED.DYSGE1 ---
HPI History of Present Illness Chief Complaint: Lower Extremity Injury Informant: patient Onset/Context/Timing Onset: Days (5) Context: Gradual Onset Timing: Continuous Quality: Aching, burning, and sharp at times. Location: Right flank, right lower abdomen, and right hip Worsened by: Movement Relieved by: Nothing Narrative Narrative: Patient presents with pain in her right area that has been getting worse over the past 5 days. Patient states she went to the urgent care and was told she had sciatica. Patient states she has been taking ibuprofen and muscle relaxants with no improvement. Patient states her pain is worse with any movement. Patient states nothing seems to help with it. Patient denies any radiation of the pain. Patient denies any paresthesias or weakness. Patient describes her pain as sharp, aching, and burning. Patient admits to some nausea but denies any vomiting. Patient denies any dysuria, hematuria, or frequency. The patient states that in the past she has had a CT scan and was told she had a stone in her appendix. [facility] Medical History Gastric reflux Leg cramps Migraine headache delivery delivered Cholecystectomy planned unexplained bruises Knee pain Diarrhea Severe headache H/O gastric ulcer Diabetes Home Medications ?Medication ?Instructions ?Recorded ?Last Taken ?Type colestipol 1 gram tablet 1 gm PO DAILY 07/31/17 02/17/20 History metformin 500 mg tablet 500 mg PO DAILY 07/31/17 02/17/20 History tirzepatide 10 mg/0.5 mL 10 mg subcut QWEEK 06/05/23 Unknown History subcutaneous pen injector (Mounjaro) cyclobenzaprine 10 mg tablet 10 mg PO TID PRN Muscle Spasm #10 08/31/23 Unknown Rx TABLETS hydrocodone-acetaminophen 5-325mg 1 tab PO Q6H PRN PRN Pain 3 days 08/31/23 Unknown Rx 5mg-325mg #10 TABLETS naproxen 500 mg tablet 500 mg PO BID PRN #20 tabs 05/09/24 Unknown Rx Allergy/AdvReac Type Severity Reaction Status Date / Time macadamia nut oil Allergy Rash Verified 05/09/24 17:52 Family History Mother Breast cancer Kidney disease Ovarian cancer Pancreatic cancer Surgical History Hx of sinus surgery Hx of foot surgery H/O foot surgery Social History Smoking Status: Never smoker ROS ROS ED Constitutional Constitutional ED: Reports chills and subjective; Denies fever(s) Eyes Eyes: Denies blurry vision or change in vision ENT ENT ED: Denies rhinorrhea or sore throat Cardiovascular Cardiovascular: Denies chest pain or palpitations Respiratory/Chest Respiratory/Chest: Denies cough or dyspnea Gastrointestinal Gastrointestinal: Reports abdominal pain and nausea; Denies vomiting Genitourinary Genitourinary ED: Denies dysuria or hematuria Musculoskeletal Musculoskeletal: Reports back pain; Denies neck pain Integumentary Denies abscess or rash Neurologic Neurologic: Denies headache(s) or weakness Allergic/Immunologic Allergic/Immunologic ED: Denies mouth swelling or urticaria EXAM Physical Exam Const Vital Signs: 05/09/24 17:52 Temperature 97.9 F Temperature Source Temporal Pulse Rate 98 Respiratory Rate 22 H Blood Pressure 153/102 H Blood Pressure Mean 119 Pulse Ox 100 Oxygen Delivery Method Room Air Positive well nourished and well developed General Appearance ED: well developed and NAD HEENT Reports moist mucous membranes Neck supple and no JVD Resp normal respiratory effort and clear to auscultation bilaterally Cardio regular rate and regular rhythm GI non-distended Palpation: soft and tender RLQ, RUQ, periumbilical and suprapubic; Negative for guarding or rebound tenderness present Back/Spine General Back: CVA tenderness right Extremity Extremity Narrative: There is tenderness over the right hip. There is no deformity noted. Range of motion was slightly limited in all motions of the right hip secondary to pain. Pedal pulses are equal bilaterally. Strength is 5/5 bilaterally in the lower extremities. There are no sensory deficits. There is no calf tenderness or edema. General Extremety ED: Negative for edema or tenderness General Extremity: Negative for edema Neuro oriented x3, CN's II-XII intact bilaterally and no sensory deficits noted Sensorium / Orientation: alert Motor Exam: strength 5/5 throughout Psych mental status grossly normal MDM MDM MDM Narrative Medical decision making narrative: Differential diagnosis includes inguinal hernia, appendicitis, ureteral calculus, pyelonephritis, ectopic , diverticulitis, and mesenteric adenitis. CBC will be obtained to assess for leukocytosis and anemia. Comprehensive metabolic profile will be obtained to assess for hepatic function, renal function, and electrolyte abnormality. Urinalysis will be obtained to assess for urinary tract infection and hematuria. Serum hCG will be obtained to assess for . CT scan of the abdomen and pelvis will be obtained to assess for ureteral calculus, appendicitis, pyelonephritis, right inguinal hernia, mesenteric adenitis, and diverticulitis. Lab Data Attestation: I reviewed the patient's lab results. Lab results narrative: CBC was reviewed. There is a slight leukocytosis of 11.7. The remainder is within normal limits. Comprehensive metabolic profile was reviewed. Potassium was low at 2.8. The remainder was essentially within normal limits. Serum hCG was reviewed and was negative. Urinalysis was reviewed. There is no evidence of urinary tract infection or hematuria. Labs: Laboratory Results - last 24 hr 05/09/24 05/09/24 18:12 18:33 WBC 11.7 H RBC 4.37 Hgb 13.2 Hct 38.2 MCV 87.4 MCH 30.2 MCHC 34.6 RDW Std Deviation 38.3 RDW Coeff of Tristan 11.9 Plt Count 269 MPV 9.7 Immature Gran % (Auto) 0.300 Neut % (Auto) 58.1 Lymph % (Auto) 24.5 [place] % (Auto) 5.7 Eos % (Auto) 10.5 H Baso % (Auto) 0.9 Absolute Neuts (auto) 6.8 Absolute Lymphs (auto) 2.86 Nucleated RBC % 0 Sodium 140 Potassium 2.8 L Chloride 106 Carbon Dioxide 27.0 Anion Gap 7 BUN 6 L Creatinine 0.72 Estim Creat Clear Calc 123.11 Est GFR (MDRD) Af Amer 115 Est GFR (MDRD) Non-Af 95 BUN/Creatinine Ratio 8.3 L Glucose 117 H Calcium 8.4 L Total Bilirubin 0.30 AST 12 L ALT 17 Alkaline Phosphatase 68 Total Protein 7.4 Albumin 3.6 Globulin 3.8 Albumin/Globulin Ratio 0.9 Serum , Qual NEGATIVE Urine Color Yellow Urine Clarity Clear Urine pH 6.5 Ur Specific [place] 1.020 Urine Protein 30 H Urine Glucose (UA) Normal Urine Ketones Negative Urine Occult Blood Negative Urine Nitrite Negative Urine Bilirubin Negative Urine Urobilinogen Normal Ur Leukocyte Esterase Negative Urine RBC 0 SEEN Urine WBC 0 SEEN Ur Squamous Epith Cells 0-5 SEEN Urine Bacteria 1+ Urine Mucus 1+ Radiography Diagnostic Testing: Clinical Impression(s) from Imaging Studies Abdomen/Pelvis CT 05/09/24 18:15 IMPRESSION: No acute process. One or more dose reduction techniques were used (e.g., Automated exposure control, adjustment of the mA and/or kV according to patient size, use of iterative reconstruction technique). [facility] the [facility] and pelvis was obtained. There is no acute abnormality noted. There is no ureteral calculus. There is no free air or free fluid. There is no hernia noted. This was interpreted by the radiologist and was also independently reviewed by myself. Treatment and Re-Evaluation :: Patient was given IV fluids, Toradol, and Zofran. Patient was advised of her findings. Patient was given a dose of oral potassium. Patient was instructed to follow-up with her primary care physician in 5 to 7 days. Patient was given a prescription for Naprosyn. Patient understood and was agreeable with the plan. All questions were answered. Discharge Plan Triage Chief Complaint: Lower Extremity Injury ED Provider: Anthony Manriquez Dx/Rx/DC Orders Clinical Impression: Acute right flank pain, Diabetes Instructions: ED Flank Pain, Uncertain Cause Prescriptions: New naproxen 500 mg tablet 500 mg PO BID PRN Qty: 20 0RF No Action metformin 500 MG tablet 500 mg PO DAILY colestipol 1 GM tablet 1 gm PO DAILY Mounjaro 10 mg/0.5 mL pen injector 10 mg subcut QWEEK Patient Comments: WILL BE STARTING TODAY 06/05/23 IF CHING HAS IN STOCK cyclobenzaprine 10 mg tablet 10 mg PO TID PRN (Reason: Muscle Spasm) Qty: 10 0RF hydrocodone-acetaminophen 5-325 mg tablet 1 tab PO Q6H PRN PRN (Reason: Pain) 3 Days Qty: 10 0RF Primary Care Provider: Gigi Carrillo Referrals: Gigi Carrillo DO [Primary Care Provider] - 5-7 Days Print Language: [place] Disposition Disposition: Home, Self Care
--- NOTE | 2024-05-09 18:15 | CT_ITS ---
PROCEDURE: CT abdomen pelvis without IV contrast REASON FOR EXAM: Right flank pain TECHNIQUE: Multiple contiguous axial images of the abdomen and pelvis were obtained without the administration of intravenous contrast. Two-dimensional coronal and sagittal reformatted images were reconstructed. Low-dose imaging technique was utilized. COMPARISON: 08/31/2023 FINDINGS: Lung bases are clear. Unenhanced liver, spleen, and adrenal glands are intact. Gallbladder is surgically absent. No significant biliary ductal dilation. No renal calculi or hydronephrosis. Urinary bladder is within normal limits. Uterus is present and contains an IUD. No bowel obstruction, focal bowel wall thickening or significant perienteric inflammation. Normal appendix. Trace pelvic free fluid, likely physiologic. No free air. No abdominal aortic aneurysm or suspicious adenopathy. Superficial soft tissues are intact. No acute osseous abnormality. CT/Abdomen/Pelvis without Cont IMPRESSION: No acute process. One or more dose reduction techniques were used (e.g., Automated exposure contr ol, adjustment of the mA and/or kV according to patient size, use of iterative reconstruction technique). Reading Location: [facility]
[2024-05-09] MEDS: Ondansetron 4 MG/2 ML Vial IV (18:40)
[2024-05-09] MEDS: 0.9% Normal Saline (1000mL) 1,000 ML 1000 ML IV (18:40)
[2024-05-09 18:48] LABS: Absolute Lymphocyte Count 2.86 X10^3/uL (0.83-4.51); Absolute Neutrophil Count 6.8 X10^3/uL (2.0-7.7); Basophil# 0.11 X10^3/uL; Basophil% 0.9 % (0-1); Eosinophil# 1.22 X10^3/uL; Eosinophils% 10.5 % (0-5); Hematocrit 38.2 % (37-47); Hemoglobin 13.2 g/dL (12.0-15.0); Lymphocyte # 2.86 X10^3/ul (0.83-4.51); Lymphocyte % 24.5 % (19-41); Mean Corp Hgb Conc 34.6 g/dL (32-36); Mean Corpuscular Hgb 30.2 pg (27.0-32.0); Mean Corpuscular Volume 87.4 fL (81-99); Mean Platelet Vol. 9.7 fl (6.2-12.0); Monocyte# 0.66 X10^3/uL; Monocyte% 5.7 % (0-10); NRBC Flagged by Analyzer 0 % (0-5); Neutrophil # 6.76 X10^3/uL (2.7-7.7); Neutrophil % 58.1 % (47-70); Platelet Count 269 K/mm3 (150-450); RBC Distribution Width CV 11.9 % (11.6-14.6); RBC Distribution Width SD 38.3 fl (35.1-43.9); Red Blood Count 4.37 M/mm3 (4.2-5.4); White Blood Count 11.7 K/mm3 (4.4-11.0)
[2024-05-09 18:51] LABS: Color, Urine Yellow (Yellow); Glucose, Dipstick Normal (Normal); Ketone-Dipstick Negative (Negative); Leukocyte Esterase-Dipstick Negative /ul (Negative); Nitrite-Dipstick Negative (Negative); Occult Blood-Urine Negative /ul (Negative); Protein-Dipstick 30 mg/dl (Negative); Urine Bilirubin Dipstick Negative (Negative); Urine Clarity Clear (Clear); Urine Urobilinogen Normal (Normal); Urine pH 6.5 (5.0 - 8.0); White Blood Cells 0 SEEN /hpf (0-5)
[2024-05-09 18:54] LABS: Internal QC Validated? YES +Cl - CLEAR BKGD; Pregnancy, Serum, hCG Quali. NEGATIVE Negative
[2024-05-09 19:01] LABS: ALB/GLOB Ratio 0.9 RATIO (0.9-2.4); AST(SGOT) 12 U/L (15-37); Alanine Aminotransfer ALT/SGPT 17 U/L (13-56); Albumin, Serum 3.6 g/dL (3.2-5.0); Alkaline Phosphatase 68 U/L (45-117); Anion Gap 7 (5-15); BUN 6 mg/dL (7-18); BUN/Creat Ratio 8.3 RATIO (10-20); Calcium,Total 8.4 mg/dL (8.5-10.1); Chloride 106 mmol/L (98-107); Creatinine, Serum 0.72 mg/dL (0.55-1.02); EST Glomerular Filtration Rate 95 mL/min (>60); Est Glom Filt Rate - Afr Amer 115 mL/min (>60); Estimated Creatinine Clearance 123.11 ml/min; Globulin 3.8 g/dL (2.2-4.2); Glucose 117 mg/dL (74-106); Potassium 2.8 mmol/L (3.5-5.1); Protein, Total 7.4 g/dL (6.4-8.2); Sodium Level 140 mmol/L (136-145)
[2024-05-09] MEDS: Ketorolac 30 MG/ML Syringe IV (19:13)
[2024-05-09 19:29] LABS: Bacteria 1+ /hpf (None Seen); Mucous, Urine 1+ /hpf (<or=2+); Red Blood Cells-Urine 0 SEEN /hpf (0-5); Squamous Epithelial Cells - UA 0-5 SEEN /hpf (5-10)
[2024-05-09] MEDS: Potassium Chloride Oral Tablet 20 MEQ 40 MEQ PO (19:37)
== END 2024-05-09 19:50 | disposition home or self-care (01) ==
PROVIDERS: Emergency Provider Emergency Medicine; PCP Student in an Organized Health Care Education/Training Program; Referring Provider Emergency Medicine; Visit Provider Emergency Medicine
DX: R10.9 Unspecified abdominal pain (principal); E11.9 Type 2 diabetes mellitus without complications
CPT/HCPCS: 74176; 80053; 81001; 84703; 85025; 96361; 96374; 96375; 96376; 99284; A4216; J2405

== ENCOUNTER 2025-01-30 13:25 | Emergency (ER) | payer MEDICAID, SELFPAY ==
[2025-01-30 13:27] VITALS: BP 155/115; PULSE 72; RESP 16; TEMP 36.7; O2SAT 98; BMI 29.9
[2025-01-30 13:31] VITALS: BP 155/115; PULSE 72; RESP 16; TEMP 36.8; O2SAT 98
--- OUTSIDE RECORDS SUMMARY | 2025-01-30 14:08 | XMS RPT_ITS | CCD ---
Author Organization [facility] Care Team Providers Care General Manager Farm Name Role Phone Gigi Carrillo DO Primary Care Provider [facility], Keti Unavailable GIGI CARRILLO DO Primary Care Physician Gigi Carrillo DO Primary Care Provider [facility], Keti Unavailable Gigi Carrillo DO Primary Care Provider [facility], Keti Unavailable GIGI CARRILLO DO Primary Care Physician Gigi Carrillo DO Primary Care Provider [facility], Keti Unavailable [facility], Keti Unavailable Gigi Carrillo DO Primary Care Provider GIGI CARRILLO DO Primary Care Unavailable DONALDO VILLAGOMEZ DO Attending Unavailable [facility], Keti Unavailable Grant MUCK BOSS.Polly ALLISON Unavailable Glory MUCK BOSS.Ilana ALLISON Unavailable Grant MUCK BOSS.Polly ALLISON Unavailable GIGI CARRILLO DO Primary Care Unavailable GAVI DOTSON Attending Unavailable CHANTELLE JOSEPH Attending Unavailable GIGI CARRILLO DO Primary Care Unavailable TORI MADDOX Referring Unavailable CARRILLO, GIGI L Primary Care Unavailable GOLDIE CALDWELL Admitting Unavailable GOLDIE CALDWELL Attending Unavailable THERESA WHEELER Referring Unavailable CARRILLO, GIGI L Primary Care Unavailable Omi MUCK BOSS.KEEGAN, Mook Kevin Unavailable [phone] Carrillo, Gigi Primary Care Unavailable Carrillo, Gigi Referring Unavailable Ibeth Phillips Attending Unavailable Bharat Dewitt Attending UnavailBharat Looney Referring Unavailabl e Carrillo, Gigi Primary Care Unavailable Carrillo, Gigi Primary Care Unavailable Anthony Manriquez Attending Unavailable Anthony Manriquez Referring Unavailable OMI, MOOK KEVIN Referring Unavailable ALEJANDRO SNIDER Attending Unavailable CARRILLO, GIGI Fausto Primary Care Unavailable CARRILLO, GIGI L Primary Care Unavailable CARRILLO, GIGI L Primary Care Unavailable CARRILLO, GIGI L Primary Care Unavailable RBEE MONTALVO Attending Unavailable CARRILLO, GIGI L Primary Care Unavailable OMI, MOOK KEVIN Attending Unavailable CARRILLO, GIGI L Primary Care Unavailable SULEMA BROWN Attending Unavailable CARRILLO, GIGI L Primary Care Unavailable TEO LINDER Referring Unavailable TORI MADDOX Attending Unavailable CARRILLO, GIGI L Primary Care Unavailable CATRACHO WAN Attending Unavailable CARRILLO, GIGI Fausto Primary Care Unavailable CARRILLO, GIGI L Primary Care Unavailable OMI, MOOK KEVIN Attending Unavailable CARRILLO, GIGI L Primary Care Unavailable OMI, MOOK KEVIN Referring Unavailable CARRILLO, GIGI L Primary Care Unavailable OMI, MOOK KEVIN Attending Unavailable CARRILLO, GIGI L Primary Care Unavailable CARRILLO, GIGI L Primary Care Unavailable CARRILLO, GIGI L Primary Care Unavailable OMI, MOOK KEVIN Referring Unavailable CARRILLO, GIGI L Primary Care Unavailable ARPIT RIVAS Attending Unavailable ARPIT RIVAS Admitting Unavailable CARRILLO, GIGI L Primary Care Unavailable TEO LINDER Attending Unavailable CARRILLO, GIGI L Primary Care Unavailable POLLY GRANT Attending Unavailabl e CARRILLO, GIGI L Primary Care Unavailable ARPIT RIVAS Referring Unavailable CARRILLO, GIGI L Primary Care Unavailable ARPIT RIVAS Attending Unavailable CARRILLO, GIGI L Primary Care Unavailable OMI, MOOK KEVIN Attending Unavailable CARRILLO, GIGI L Primary Care Unavailable SELF Referring Unavailable THERESA WHEELER Attending Unavailable CARRILLO, GIGI L Primary Care Unavailable THERESA WHEELER Referring Unavailable GIGI CARRILLO Primary Care Unavailable SELF Referring Unavailable GIGI CARRILLO Attending Unavailable GIGI CARRILLO Primary Care Unavailable GIGI CARRILLO Referring Unavailable Allergies Allergy Classification Reported Allergen(s) Allergy Type Date of Onset Reaction(s) Facility NSAIDs (2 sources) meloxicam Drug Allergy 6 Intolerance [facility] (20 sources) meloxicam; Translations: [MELOXICAM] Drug Allergy 6 Intolerance [facility] (20 sources) Macadamia Nut Oil; Translations: [MACADAMIA NUT OIL] Drug Allergy 5 Hives, Swelling, Shortness of Breath [facility] Work Phone: (9 sources) Macadamia nut Food allergy throat swelling, hives [facility] (1 source) meloxicam Drug Allergy 5 [facility] (1 source) macadamia nut oil Drug allergy (disorder) 5 [facility] Medications Current Medications Medication Drug Class(es) Dates Sig (Normalized) Sig (Original) acetaminophen 325 mg / HYDROcodone bitartrate 7.5 mg oral tablet (2 sources) Opioid Agonist Start: 11-21-2023 End: 11-26-2023 take 1 tablet by mouth every eight hours as needed for pain HYDROcodone-Aceta minophen (NORCO) 7.5-325 mg per tablet Indications: Injury of right shoulder, initial encounter , Injury of right upper extremity, initial encounter , Weakness of right arm Take 1 tablet by mouth every 8 hours as needed for pain for up to 5 days. 15 tablet 11/21/2023 11/26/2023 Active amoxicillin 500 mg oral capsule (8 sources) Penicillin-class Antibacterial Start: 07-19-2024 End: 07-29-2024 take 1 capsule by mouth twice daily amoxicillin (AMOXIL) 500 mg capsule Take 500 mg by mouth two times a day. 07/19/2024 07/29/2024 Active Start: 07-02-2021 End: 07-09-2021 take 1 tablet by mouth twice daily amoxicillin (AMOXIL) 875 mg tablet Take 1 tablet by mouth twice daily for 7 days. 14 tablet 07/02/2021 07/09/2021 Comment on above: Take 1 tablet by katina twice daily for 7 days. amoxicillin 875 mg / clavulanate 125 mg oral tablet (9 sources) Penicillin-class Antibacterial Start: End: take 1 tablet by mouth twice daily amoxicillin-clavul anate potassium (AUGMENTIN) 875-125 mg per tablet Indications: Chronic maxillary sinusitis Take 1 tablet by mouth two times a day for 10 days. 20 tablet 0 06/17/2023 06/27/2023 Active Start: 01-01-2023 End: 01-11-2023 take 1 tablet by mouth twice daily amoxicillin-clavulanic acid (AUGMENTIN) 875-125 mg per tablet Take 1 tablet by mouth two times a day for 10 days. 20 tablet 0 01/01/2023 01/11/2023 Active Start: 01-20-2022 End: 01-25-2022 take 1 tablet by mouth twice daily amoxicillin-clavulanic acid (AUGMENTIN) 875-125 mg per tablet Take 1 tablet by mouth twice daily for 5 days. 10 tablet 0 01/20/2022 01/25/2022 Active Start: 06-04-2021 End: 06-14-2021 take 1 tablet by mouth twice daily amoxicillin-clavulanic acid (AUGMENTIN) 875-125 mg per tablet Take 1 tablet by mouth twice daily for 10 days. 20 tablet 0 06/04/2021 06/14/2021 Active Comment on above: Take 1 tablet by katina twice daily for 10 days. Take 1 tablet by katina twice daily for 5 days. Take 1 tablet by katina two times a day for 10 days. atomoxetine 40 mg oral capsule (4 sources) Norepinephrine Reuptake Inhibitor Start: 10-23-19 End: 01-21-20 take 2 capsules by mouth once daily, then take 1 capsule by mouth twice daily atomoxetine (STRATTERA) 40 mg capsule Indications: ADHD (attention deficit hyperactivity disorder), combined type Take 2 capsules by mouth once daily. It's ok if you want to split this up and take one capsule twice per day instead 180 capsule 10/22/2024 01/20/2025 Active Start: 08-27-2024 End: 11-28-2024 take 1 capsule by mouth once daily, then take 2 capsules by mouth once daily atomoxetine (STRATTERA) 40 mg capsule Indications: ADHD (attention deficit hyperactivity disorder), combined type Take 1 capsule by mouth once daily for 3 days, THEN 2 capsules once daily. 183 capsule 08/27/2024 11/28/2024 Active azithromycin 250 mg oral tablet (1 source) Macrolide Antimicrobial Start: 06-20-2022 End: 06-25-2022 azithromycin (ZITHROMAX Z-QUINTON) 250 mg tablet Indications: Acute non-recurrent sinusitis, unspecified location Take 2 tablets day one, then, 1 tablet daily until gone. 6 tablet 0 06/20/2022 06/25/2022 Active Comment on above: Take 2 tablets day o ne, then, 1 tablet daily until gone. benzonatate 100 mg oral capsule (15 sources) Non-narcotic Antitussive Start: 01-20-2022 End: 01-27-2022 take 1 capsule by mouth every eight hours as needed benzonatate (TESSALON PERLES) 100 mg capsule Take 1 capsule by mouth three times daily as needed for cough for up to 7 days. 21 capsule 0 01/20/2022 01/27/2022 Active Start: 06-07-2021 End: 06-14-2021 Tessalon Perles 100 mg oral capsule Dose : 100 mg = 1 cap(s), Oral, TID, PRN as needed for cough, X 7 day(s), # 21 cap(s), 0 Refill(s), 06/14/21 11:10:00 EDT, Cough Start Date: 06/07/21 Stop Date: 06/14/21 Status: Ordered Start: 06-04-2021 End: 08-29-2021 take 2 capsules by mouth three times daily as needed benzonatate (TESSALON PERLES) 100 mg capsule Indications: Sinobronchitis Take 2 capsules by mouth three times daily as needed. 30 capsule 06/04/2021 08/29/2021 Discontinued Comment on above: Take 2 capsules by m outh three times daily as needed. Take 1 capsule by mo uth three times daily as needed for cough for up to 7 days. cetirizine hydrochloride 10 mg oral tablet (1 source) Histamine-1 Receptor Antagonist Start: 0 cetirizine 10 mg oral tablet Dose : 10 mg = 1 tab(s), Oral, qDay Start Date: 11/24/19 Status: Ordered colestipol hydrochloride 1000 mg oral tablet (20 sources) Bile Acid Sequestrant Start: 4 End: 5 take 1 tablet by mouth once daily for diarrhea colestipol (COLESTID) 1 gram tablet Take 1 tablet by mouth once daily. For Diarrhea Post Gall Bladder Removal 90 tablet 1 08/27/2024 Active Start: 11-10-2015 colestipol 1 g oral tablet Dose : 1 gram(s) = 1 tab(s), Oral, qDay, 0 Refill(s) Start Date: 11/10/15 Status: Ordered Repeat number: 1 Start: 11-10-2015 End: 05-17-2023 take 1 tablet by mouth once daily for diarrhea colestipol (COLESTID) 1 gram tablet Indications: Functional diarrhea Take 1 tablet by mouth once daily. For Diarrhea Post Gall Bladder Removal 90 tablet 3 09/09/2019 10/12/2020 Discontinued Comment on above: Take 1 tablet by katina once daily. For Diarrhea Post Gall Bladder Removal cyclobenzaprine hydrochloride 10 mg oral tablet (20 sources) Muscle Relaxant Start: 08-14-19 End: 09-03-19 take 1 tablet by mouth every twenty-four hours as needed cyclobenzaprine (FLEXERIL) 10 mg tablet Take 1 tablet by mouth at bedtime as needed for muscle spasm for up to 20 days. 20 tablet 08/13/2024 09/02/2024 Active Start: 05-06-2024 End: 05-12-2024 take 1 tablet by mouth at bedtime as needed for muscle spasms cyclobenzaprine (FLEXERIL) 10 mg tablet Indications: Acute right-sided low back pain with right-sided sciatica Take 1 tablet by mouth at bedtime as needed for muscle spasm for up to 6 days. 6 tablet 05/06/2024 05/12/2024 Active Start: 04-03-2021 End: 02-13-2022 take 1 tablet by mouth three times daily as needed for muscle spasms cyclobenzaprine (FLEXERIL) 10 mg tablet Indications: Acute swimmer's ear of both sides Take 1 tablet by mouth three times daily as needed for muscle spasm. 30 tablet 1 08/10/2021 02/13/2022 Discontinued Start: 07-07-2020 End: 07-17-2020 take 1 tablet by mouth three times daily cyclobenzaprine (FLEXERIL) 5 mg tablet Indications: Acute left-sided thoracic back pain , Rib pain on left side Take 1 tablet by mouth three times daily for 10 days. 30 tablet 07/07/2020 07/17/2020 Comment on above: Take 1 tablet by katina th three times daily as needed for muscle spasm. diphenhydrAMINE-maa lox-lidocaine (BMX 1:1:1) 1:1:1 liqd (9 sources) Start: 08-13-2024 take 5 mL by mouth every four hours as needed diphenhydrAMINE-ma alox-lidocaine (BMX 1:1:1) 1:1:1 liqd Take 5 mL by mouth every 4 hours as needed. Swish and spit 400 mL 08/13/2024 Active Start: 08-13-2024 End: 08-13-2024 take 5 mL by mouth every four hours as needed adysdhgjpbCUEPF-gyoene-xczzkusop (BMX 1: 1:1) 1:1:1 liqd Take 5 mL by mouth every 4 hours as needed. Swish and spit 400 mL 08/13/2024 08/13/2024 Discontinued doxycycline hyclate 100 mg oral tablet (3 sources) Tetracycline-class Drug Start: 05-25-2024 End: 06-01-2024 take 1 tablet by mouth twice daily doxycycline (VIBRA-TABS) 100 mg tablet Indications: Rhinosinusitis Take 1 tablet by mouth two times a day for 7 days. 14 tablet 05/25/2024 06/01/2024 Active Start: 01-09-2023 End: 01-16-2023 take 1 tablet by mouth twice daily doxycycline (VIBRA-TABS) 100 mg tablet Indications: Bacterial sinusitis , Dizziness Take 1 tablet by mouth two times a day for 7 days. 14 tablet 0 01/09/2023 01/16/2023 Active Comment on above: Take 1 tablet by katina two times a day for 7 days. dulaglutide (TRULICITY) 3 mg/0.5 mL pen injector (1 source) Start: 023 End: 023 inject 3 mg by subcutaneous injection every week dulaglutide (TRULICITY) 3 mg/0.5 mL pen injector Indications: Uncontrolled type 2 diabetes mellitus with hyperglycemia (HCC) Inject 3 mg subcutaneously one time a week. 2 mL 3 04/04/2022 04/05/2022 Discontinued Comment on above: Inject 3 mg subcutan eously one time a week. [id number] 0.3 ml EPINEPHrine 1 mg/ml auto-injector (20 sources) alpha-Adrenergic Agonist, beta-Adrenergic Agonist, Catecholamine Start: 018 End: 024 EPINEPHrine (EPIPEN) 0.3 mg/0.3 mL auto-injector Indications: Allergic reaction, subsequent encounter Use for allergic reaction 2 Each 1 01/23/2024 Active Comment on above: Use for allergic ana ction erythromycin 0.005 mg/mg ophthalmic ointment (2 sources) Macrolide, Macrolide Antimicrobial Start: 023 End: 023 erythromycin (ROMYCIN) 5 mg/gram (0.5 %) ophthalmic ointment Use 1 application in the left eye four times daily for 7 days. 3.5 g 1 07/12/2022 07/19/2022 Active Comment on above: Use 1 application in the left eye four times daily for 7 days. etonogestrel 68 mg drug implant (1 source) Progestin Start: 016 inject 1 dose by subcutaneous injection once Implanon 68 mg subcutaneous implant Dose : 68 mg =, Subcutaneous, Once, 0 Refill(s) Start Date: 10/31/15 Status: Ordered famotidine 40 mg oral tablet (20 sources) Histamine-2 Receptor Antagonist Start: 019 End: 024 famotidine (PEPCID) 40 mg tablet Take 1 tablet by mouth as needed. 30 tablet 10/03/2023 01/01/2024 Active Start: 09-02-2017 End: 09-07-2017 Pepcid 40 mg oral tablet Dos e : 40 mg = 1 tab(s), PO, Once a day (at bedtime), # 5 tab(s), 0 Refill(s) Start Date: 09/02/17 Stop Date: 09/07/17 Status: Ordered Comment on above: Take 40 mg by mouth as needed. flash glucose scanning reader (FREESTYLE EMILIA 3 READER) (20 sources) Start: 04-25-2023 flash glucose scanning reader (FREESTYLE EMILIA 3 READER) Indications: Uncontrolled type 2 diabetes mellitus with hyperglycemia (HCC) 1 Each once daily. 1 Each 5 04/25/2023 Active Comment on above: 1 Each once daily. flash glucose sensor (FREESTYLE EMILIA 14 DAY SENSOR) kit (20 sources) Start: 04-25-2023 flash glucose sensor (FREESTYLE EMILIA 14 DAY SENSOR) kit Indications: Uncontrolled type 2 diabetes mellitus with hyperglycemia (HCC) Apply and use as directed. Dx: Uncontrolled type 2 diabetes without insulin. 1 Kit 3 04/25/2023 Active Start: 02-03-2023 End: 04-25-2023 flash glucose sensor (FREEST YLE EMILIA 14 DAY SENSOR) kit Indications: Uncontrolled type 2 diabetes mellitus with hyperglycemia (HCC) Apply and use as directed. Dx: Uncontrolled type 2 diabetes without insulin. 1 Kit 3 02/03/2023 04/25/2023 Discontinued Start: 02-03-2023 flash glucose sensor (FREESTYLE EMILIA 14 DAY SENSOR) kit Indications: Uncontrolled type 2 diabetes mellitus with hyperglycemia (HCC) Apply and use as directed. Dx: Uncontrolled type 2 diabetes without insulin. 1 Kit 3 02/03/2023 Active Start: 04-15-2022 End: 02-03-2023 flash glucose sensor (FREEST YLE EMILIA 14 DAY SENSOR) kit Indications: Uncontrolled type 2 diabetes mellitus with hyperglycemia (HCC) Apply and use as directed. Dx: Uncontrolled type 2 diabetes without insulin. 1 Kit 3 04/15/2022 02/03/2023 Discontinued Start: 04-15-2022 flash glucose sensor (FREESTYLE EMILIA 14 DAY SENSOR) kit Indications: Uncontrolled type 2 diabetes mellitus with hyperglycemia (HCC) Apply and use as directed. Dx: Uncontrolled type 2 diabetes without insulin. 1 Kit 3 04/15/2022 Active Start: 02-13-2022 End: 04-15-2022 flash glucose sensor (FREEST YLE EMILIA 14 DAY SENSOR) kit Indications: Uncontrolled type 2 diabetes mellitus with hyperglycemia (HCC) Apply and use as directed. Dx: Uncontrolled type 2 diabetes without insulin. 1 Kit 3 02/13/2022 04/15/2022 Discontinued Start: 02-13-2022 flash glucose sensor (FREESTYLE EMILIA 14 DAY SENSOR) kit Indications: Uncontrolled type 2 diabetes mellitus with hyperglycemia (HCC) Apply and use as directed. Dx: Uncontrolled type 2 diabetes without insulin. 1 Kit 3 02/13/2022 Active Start: 08-29-2021 End: 02-13-2022 flash glucose sensor (FREEST YLE EMILIA 14 DAY SENSOR) kit Indications: Uncontrolled type 2 diabetes mellitus with hyperglycemia (HCC) Apply and use as directed. Dx: Uncontrolled type 2 diabetes without insulin. 1 Kit 3 08/29/2021 02/13/2022 Discontinued Start: 08-29-2021 flash glucose sensor (FREESTYLE EMILIA 14 DAY SENSOR) kit Indications: Uncontrolled type 2 diabetes mellitus with hyperglycemia (HCC) Apply and use as directed. Dx: Uncontrolled type 2 diabetes without insulin. 1 Kit 3 08/29/2021 Active Start: 07-13-2021 End: 08-29-2021 flash glucose sensor (FREEST YLE EMILIA 14 DAY SENSOR) kit Indications: Uncontrolled type 2 diabetes mellitus with hyperglycemia (HCC) Apply and use as directed. Dx: Uncontrolled type 2 diabetes without insulin. 1 Kit 3 07/13/2021 08/29/2021 Discontinued Start: 07-13-2021 flash glucose sensor (FREESTYLE EMILIA 14 DAY SENSOR) kit Indications: Uncontrolled type 2 diabetes mellitus with hyperglycemia (HCC) Apply and use as directed. Dx: Uncontrolled type 2 diabetes without insulin. 1 Kit 3 07/13/2021 Active Start: 10-25-2020 End: 07-13-2021 flash glucose sensor (FREEST YLE EMILIA 14 DAY SENSOR) kit Indications: Uncontrolled type 2 diabetes mellitus with hyperglycemia (HCC) Apply and use as directed. Dx: Uncontrolled type 2 diabetes without insulin. 1 Kit 3 10/25/2020 07/13/2021 Discontinued Start: 10-25-2020 flash glucose sensor (FREESTYLE EMILIA 14 DAY SENSOR) kit Indications: Uncontrolled type 2 diabetes mellitus with hyperglycemia (HCC) Apply and use as directed. Dx: Uncontrolled type 2 diabetes without insulin. 1 Kit 3 10/25/2020 Active Comment on above: Apply and use as dir ected. Dx: Uncontrolled type 2 diabetes without insulin. fluticasone propionate 0.05 mg/actuat metered dose nasal spray (5 sources) Corticosteroid Start: End: take 2 spray(s) by mouth once daily fluticasone (FLONASE) 50 mcg/actuation nasal spray Indications: Bacterial sinusitis , Dizziness Use 2 Sprays in each nostril once daily. Rinse mouth after use. 1 Each 0 01/09/2023 02/08/2023 Active Comment on above: Use 2 Sprays in each nostril once daily. Rinse mouth after use. fluticasone proprionate NASAL 50 mcg/ spray (1 source) Start: take 1 dose nasal route once daily in the morning fluticasone proprionate NASAL 50 mcg/ spray Dose = 2 spray(s), Nostril, each, qAM Start Date: 11/24/19 Status: Ordered glycerin 120 mg/ml / petrolatum 180 mg/ml / phenylephrine hydrochloride 2.5 mg/ml / shark liver oil 30 ml/ml rectal cream (20 sources) Non-Standardized Chemical Allergen, alpha-1 Adrenergic Agonist Start: End: Phenyleph-Shark Nlo-Kpdd-Xvy (HEMORRHOIDAL) 0.25-3-12 % crea Indications: External hemorrhoid by RECTAL route twice daily. 52 g 1 08/29/2021 Active Comment on above: by RECTAL route twic e daily. ketoconazole 20 mg/ml medicated shampoo (6 sources) Azole Antifungal Start: End: ketoconazole (NIZORAL) 2 % shampoo Indications: Seborrheic dermatitis Apply to affected area two times a week for 14 days. 120 mL 01/12/2024 01/26/2024 Active 3 ml liraglutide 6 mg/ml pen injector (20 sources) GLP-1 Receptor Agonist Start: 016 End: inject 1 dose by subcutaneous injection once daily Victoza 18 mg/3 mL subcutaneous Pen (NF) Dose : 1.8 mg =, Subcutaneous, qDay, 0 Refill(s) Start Date: 11/03/15 Status: Ordered Repeat number: 1 Start: 11-03-2015 inject 1 dose by sub cutaneous injection once daily Victoza 18 mg/3 mL subcutaneous Pen (NF) Dose : 1.8 mg =, Subcutaneous, qDay, 0 Refill(s) Start Date: 11/03/15 Status: Ordered Comment on above: inject 1.8 milligram subcutaneously once daily meclizine hydrochloride 12.5 mg oral tablet (20 sources) Antiemetic Start: 3 End: 3 take 1 tablet by mouth every six hours as needed meclizine (ANTIVERT) 12.5 mg tab Take 1 tablet by mouth every 6 hours as needed (dizziness) for up to 4 days. 16 tablet 0 12/28/2022 01/01/2023 Active Start: 11-19-2019 End: 02-13-2022 take 1 tablet by mouth every eight hours as needed for dizziness and dizziness meclizine (ANTIVERT) 25 mg tab Indications: Dizziness Take 1 tablet by mouth three times daily as needed (dizziness). 30 tablet 10/12/2020 08/10/2021 Discontinued Comment on above: Take 1 tablet by katina th three times daily as needed (dizziness). Take 1 tablet by katina th every 6 hours as needed (dizziness) for up to 4 days. methylPREDNISolone (6 sources) Corticosteroid Start: 07-20-2024 End: 07-26-2024 methylPREDNISolone (MEDROL, QUINTON,) 4 mg Dose-Pack Follow dosing instructions, take with food. 21 tablet 07/20/2024 07/26/2024 Active Start: 06-16-2023 End: 06-22-2023 methylPREDNISolone (MEDROL, QUINTON,) 4 mg Dose-Pack Indications: Headache, unspecified headache type Follow dosing instructions, take with food. 21 tablet 0 06/16/2023 06/22/2023 Active Comment on above: Follow dosing instru ctions, take with food. metroNIDAZOLE 500 mg oral tablet (1 source) Nitroimidazole Antimicrobial Start: 10-06-19 24 End: 10-13-19 24 take 1 tablet by mouth twice daily metroNIDAZOLE (FLAGYL) 500 mg tablet Take 1 tablet by mouth two times a day for 7 days. 14 tablet 0 10/06/2023 10/13/2023 Active nystatin [id number] unt/ml topical cream (13 sources) Polyene Antifungal Start: 11-10-19 End: 11-24-19 nystatin (MYCOSTATIN) cream Apply to affected area two times a day for 14 days. 30 g 11/09/2024 11/23/2024 Active Start: 01-20-2024 End: 03-01-2024 nystatin (MYCOSTATIN) 100,00 0 unit/mL suspension Indications: Thrush 5 mL four times daily. Swish/swallow or swish/expectorate 200 mL 01/20/2024 03/01/2024 Discontinued (Discontinued by Patient) Start: 12-26-2023 End: 01-05-2024 nystatin (MYCOSTATIN) 100,00 0 unit/mL suspension Take 5 mL by mouth four times daily for 10 days. 1tsp swish in mouth for several minutes, then swallow (or expectorate) 4 times daily until gone. 200 mL 12/26/2023 01/05/2024 Active omeprazole 40 mg delayed release oral capsule (2 sources) Proton Pump Inhibitor Start: 10-22-2024 End: 01-20-2025 take 1 capsule by mouth once daily omeprazole (PRILOSEC) 40 mg capsule Take 1 capsule by mouth once daily. 30 capsule 2 10/22/2024 01/20/2025 Active pantoprazole 40 mg delayed release oral tablet (20 sources) Proton Pump Inhibitor Start: 02-24-2024 End: 08-27-2024 take 1 tablet by mouth twice daily before mealtime pantoprazole DR (PROTONIX) 40 mg tablet Indications: Gastroesophageal reflux disease without esophagitis Take 1 tablet by mouth two times a day. Take on empty stomach, 1/2 hr before meal. 60 tablet 2 08/27/2024 Active Start: 01-23-2024 End: 07-21-2024 take 1 tablet by mouth once daily before breakfast pantoprazole DR (PROTONIX) 40 mg tablet Indications: Heart burn , Globus sensation Take 1 tablet by mouth daily before breakfast. Take on empty stomach, 1/2 hr before meal. 90 tablet 1 01/23/2024 02/24/2024 Discontinued Start: 10-22-2023 End: 01-20-2024 take 1 tablet by mouth once daily before breakfast pantoprazole DR (PROTONIX) 40 mg tablet Indications: Heart burn Take 1 tablet by mouth daily before breakfast. Take on empty stomach, 1/2 hr before meal. 30 tablet 2 10/22/2023 01/12/2024 Discontinued (Discontinued by Patient) phentermine hydrochloride 37.5 mg oral capsule (20 sources) Sympathomimetic Amine Anorectic Start: 05-28-2024 End: 08-26-2024 Phentermine HCl 37.5 mg capsule Indications: Class 1 obesity due to excess calories with serious comorbidity and body mass index (BMI) of 31.0 to 31.9 in adult , Controlled type 2 diabetes mellitus without complication, without long-term current use of insulin (HCC) Take 1 capsule by mouth once daily for 90 days. BMI 30.57 30 capsule 2 05/28/2024 08/26/2024 Active Start: 11-07-2023 End: 05-17-2024 Phentermine HCl 37.5 mg caps ule Indications: Class 1 obesity due to excess calories with serious comorbidity and body mass index (BMI) of 31.0 to 31.9 in adult , Controlled type 2 diabetes mellitus without complication, without long-term current use of insulin (HCC) Take 1 capsule by mouth once daily for 90 days. BMI 30.57 30 capsule 2 02/17/2024 05/17/2024 Active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 Chronic Other female genital disorders (2 sources) Vaginal irritation; Translations: [Other specified noninflammatory disorders of vagina] Episodic Other female genital disorders (2 sources) Vaginal discharge; Translations: [Other specified noninflammatory disorders of vagina] 07-16-2023 Episodic Other female genital disorders (2 sources) Pruritus of vagina; Translations: [Other specified noninflammatory disorders of vagina] 12-24-2023 Episodic Other female genital disorders (1 source) Other specified noninflammatory disorders of vagina; Translations: [Vaginal itching] Onset: Episodic Other gastrointestinal disorders (11 sources) Diarrhea; Translations: [Diarrhea, unspecified] 10-31-2015 Episodic Other gastrointestinal disorders (2 sources) Heartburn; Translations: [Heartburn] 10-22-2023 Episodic Other gastrointestinal disorders (2 sources) Abdominal bloating; Translations: [Abdominal distension (gaseous)] 02-24-2024 Episodic Other inflammatory condition of skin (1 source) Solar erythema; Translations: [Sunburn, unspecified] 10-11-2022 Episodic Other inflammatory condition of skin (1 source) Seborrheic dermatitis; Translations: [Seborrheic dermatitis, unspecified] 01-12-2024 Episodic Other injuries and conditions due to external causes (2 sources) Allergic reaction; Translations: [Allergy, unspecified, subsequent encounter] Episodic Other injuries and conditions due to external causes (3 sources) Injury of right wrist; Translations: [Unspecified injury of right wrist, hand and finger(s), subsequent encounter] Episodic Other injuries and conditions due to external causes (1 source) Injury of head; Translations: [Unspecified injury of head, initial encounter] Onset: 4 Episodic Other injuries and conditions due to external causes (2 sources) Injury of right shoulder; Translations: [Unspecified injury of right shoulder and upper arm, initial encounter] 11-21-2023 Episodic Other injuries and conditions due to external causes (2 sources) Injury of upper extremity; Translations: [Unspecified injury of right shoulder and upper arm, initial encounter] 11-21-2023 Episodic Other injuries and conditions due to external causes (1 source) Injury of left forearm; Translations: [Unspecified injury of left forearm, initial encounter] 03-21-2023 Episodic Other lower respiratory disease (5 sources) Cough; Translations: [Cough, unspecified] Onset: 2 Episodic Other lower respiratory disease (2 sources) Dyspnea; Translations: [Shortness of breath] Episodic Other lower respiratory disease (2 sources) Chest pain on breathing; Translations: [Chest pain on breathing] Episodic Other nervous system disorders (1 source) Postoperative pain ; Translations: [Other acute postprocedural pain] 07-16-2023 Episodic Other nervous system disorders (1 source) Other acute postprocedural pain; Translations: [Post-op pain] Onset: 5 Episodic Other non-traumatic joint disorders (1 source) Shoulder pain; Translations: [Pain in right shoulder] Episodic Other non-traumatic joint disorders (4 sources) Pain of right wrist; Translations: [Pain in right wrist] Episodic Other non-traumatic joint disorders (3 sources) Pain in right shoulder; Translations: [Pain in joint, shoulder region] 10-11-2022 Episodic Other non-traumatic joint disorders (20 sources) Pain in left knee; Translations: [Pain in joint, lower leg] Onset: 4 04-25-2023 Episodic Other non-traumatic joint disorders (2 sources) Anterior knee pain; Translations: [Pain in left knee] 04-25-2023 Episodic Other nutritional; endocrine; and metabolic disorders (20 sources) Body mass index 30+ - obesity; Translations: [Body mass index (BMI) 38.0-38.9, adult] Onset: 5 10-17-2015 Chronic Other nutritional; endocrine; and metabolic disorders (1 source) Obesity; Translations: [Obesity, unspecified] 06-04-2023 Chronic Other nutritional; endocrine; and metabolic disorders (10 sources) Obesity caused by energy imbalance; Translations: [Other obesity due to excess calories] 06-17-2023 Chronic Other nutritional; endocrine; and metabolic disorders (1 source) Localized adiposity; Translations: [Symptomatic abdominal panniculus] Onset: Chronic Other nutritional; endocrine; and metabolic disorders (1 source) Overweight in adulthood with body mass index of 25 or more but less than 30; Translations: [Overweight] 08-27-2024 Episodic Other skin disorders (1 source) Eruption; Translations: [Rash and other nonspecific skin eruption] 03-28-2024 Episodic Other skin disorders (2 sources) Skin irritation ; Translations: [Other skin changes] 08-27-2024 Episodic Other upper respiratory disease (1 source) Chronic rhinitis; Translations: [Unspecified sinusitis (chronic)] Chronic Other upper respiratory disease (1 source) Seasonal allergic rhinitis; Translations: [Other seasonal allergic rhinitis] 01-12-2024 Chronic Other upper respiratory disease (6 sources) Hypertrophy of nasal turbinates; Translations: [Hypertrophy of nasal turbinates] 07-25-2020 Episodic Other upper respiratory disease (6 sources) Nasal congestion; Translations: [Nasal congestion] 07-25-2020 Episodic Other upper respiratory disease (6 sources) Deviated nasal septum; Translations: [Deviated nasal septum] 07-25-2020 Episodic Other upper respiratory disease (3 sources) Feeling of lump in throat; Translations: [Globus sensation] 01-23-2024 Episodic Other upper respiratory infections (14 sources) Chronic sinusitis; Translations: [Chronic sinusitis, unspecified] Onset: 5 Chronic Otitis media and related conditions (1 source) Otitis media of right ear; Translations: [Otitis media, unspecified, right ear] Episodic Ovarian cyst (6 sources) Cyst of ovary; Translations: [Unspecified ovarian cyst, right side] 02-22-2020 Episodic Phlebitis; thrombophlebitis and thromboembolism (1 source) H/O: Deep vein thrombosis; Translations: [Personal history of other venous thrombosis and embolism] Episodic Residual codes; unclassified (1 source) Generalized aches and pains; Translations: [Pain, unspecified] Episodic Residual codes; unclassified (1 source) Other specified personal risk factors, not elsewhere classified; Translations: [Other specified personal history presenting hazards to health] Episodic Residual codes; unclassified (1 source) History of operative procedure on foot; Translations: [Other specified postprocedural states] Episodic Residual codes; unclassified (1 source) Influenza-like symptoms; Translations: [Other general symptoms and signs] Episodic Residual codes; unclassified (1 source) Left before being seen; Translations: [Procedure and treatment not carried out due to patient leaving prior to being seen by health care provider] 08-13-2023 Episodic Skull and face fractures (6 sources) Fractured nasal bones; Translations: [Fracture of nasal bones, initial encounter for closed fracture] 07-25-2020 Episodic Sprains and strains (9 sources) Strain of muscle of chest wall; Translations: [Strain of muscle and tendon of front wall of thorax, initial encounter] Onset: 4 07-11-2021 Episodic Unclassified (20 sources) Type 2 diabetes mellitus without complication; Translations: [Uncontrolled type 2 diabetes mellitus without complication, without long-term current use of insulin] Onset: 6 10-17-2015 Unclassified (1 source) Esophageal reflux disease with esophagitis without bleeding; Translations: [Esophageal reflux disease with esophagitis without bleeding] Onset: 5 Viral infection (5 sources) Disease caused by 2019-nCoV; Translations: [COVID-19] 07-03-2021 Episodic Past or Other Problems Problem Classification Problem Date Documented Da te Episodic/Chronic Diabetes mellitus without complication (20 sources) Increased glucose level; Translations: [Other abnormal glucose] Onset: 4 Resolved: 6 Episodic Diabetes or abnormal glucose tolerance complicating ; childbirth; or the puerperium (20 sources) History of gestational diabetes mellitus; Translations: [Personal history of gestational diabetes] Onset: 4 02-15-2014 Episodic Diseases of mouth; excluding dental (6 sources) Aphthous ulcer of mouth; Translations: [Recurrent oral aphthae] Onset: 5 10-29-2023 Episodic Disorders of teeth and jaw (20 sources) Temporomandibular joint disorder; Translations: [Unspecified temporomandibular joint disorder, unspecified side] Onset: 0 09-09-2019 Episodic Gastrointestinal hemorrhage (20 sources) Rectal hemorrhage; Translations: [Hemorrhage of anus and rectum] Onset: 8 05-14-2017 Episodic Headache; including migraine (20 sources) Headache; Translations: [Headache, unspecified headache type] Onset: 4 Resolved: 6 06-16-2023 Episodic Miscellaneous mental health disorders (20 sources) Depressed mood; Translations: [Other symptoms and signs involving emotional state] Onset: 4 02-15-2014 Episodic Nausea and vomiting (9 sources) Nausea; Translations: [Nausea] Onset: 4 06-16-2023 Episodic Other aftercare (2 sources) custodial (current) use of insulin; Translations: [Type 2 diabetes mellitus without complication, with long-term current use of insulin (HCC)] Onset: 4 Episodic Other connective tissue disease (3 sources) Other symptoms and signs involving the musculoskeletal system; Translations: [Other musculoskeletal symptoms referable to limbs] Onset: 5 11-21-2023 Episodic Other disorders of stomach and duodenum (2 sources) Functional dyspepsia; Translations: [Upset stomach] Onset: 4 Episodic Other gastrointestinal disorders (20 sources) Functional diarrhea; Translations: [Functional diarrhea] Onset: 6 03-12-2021 Episodic Other gastrointestinal disorders (20 sources) Alteration in bowel elimination; Translations: [Change in bowel habit] Onset: 8 05-14-2017 Episodic Other gastrointestinal disorders (20 sources) Altered bowel function; Translations: [Change in bowel habit] Onset: 8 05-14-2017 Episodic Other gastrointestinal disorders (2 sources) Abdominal distension (gaseous); Translations: [Bloating] Onset: 4 Episodic Other gastrointestinal disorders (1 source) Functional diarrhea; Translations: [Functional diarrhea] Onset: 1 Episodic Other nutritional; endocrine; and metabolic disorders (20 sources) Weight loss; Translations: [Abnormal weight loss] Onset: 4 11-11-2023 Episodic Other nutritional; endocrine; and metabolic disorders (20 sources) Weight decreased; Translations: [Abnormal weight loss] Onset: 4 11-11-2023 Episodic Other nutritional; endocrine; and metabolic disorders (2 sources) Abnormal weight loss; Translations: [Weight loss] Onset: 5 Episodic Other nutritional; endocrine; and metabolic disorders (2 sources) Overweight; Translations: [Overweight with body mass index (BMI) of 28 to 28.9 in adult] Onset: 5 Episodic Other nutritional; endocrine; and metabolic disorders (1 source) Body mass index (BMI) 28.0-28.9, adult; Translations: [Overweight with body mass index (BMI) of 28 to 28.9 in adult] Onset: 5 Episodic Other nutritional; endocrine; and metabolic disorders (1 source) Body mass index (BMI) 25.0-25.9, adult; Translations: [Overweight with body mass index (BMI) of 25 to 25.9 in adult] Onset: 5 Episodic Other screening for suspected conditions (not mental disorders or infectious disease) (20 sources) Abnormal cervical Papanicolaou smear; Translations: [Unspecified abnormal cytological findings in specimens from cervix uteri] Onset: 5 11-09-2019 Episodic Other skin disorders (2 sources) Other skin changes; Translations: [Skin irritation] Onset: 5 Episodic Other upper respiratory infections (12 sources) Acute sinusitis; Translations: [Acute sinusitis, unspecified] Onset: 5 Episodic Residual codes; unclassified (20 sources) Family history of malignant neoplasm of ovary; Translations: [Family history of malignant neoplasm of ovary] Onset: 5 06-13-2014 Episodic Screening and history of mental health and substance abuse codes (2 sources) Encounter for screening examination for other mental health and behavioral disorders; Translations: [Encounter for screening for depression] Onset: 5 Episodic Spondylosis; intervertebral disc disorders; other back problems (5 sources) Backache; Translations: [Dorsalgia, unspecified] Onset: 5 Episodic Unclassified (4 sources) unexplained bruises 10-15-2021 Unclassified (1 source) Patient encounter status 05-18-2024 Results Test Name Value Interpretation Reference Range Facility [id number] 01-22-2025 [id number] HNO ID: [id number] Author: FAIZA SKAGGS RN Service: ? Author Type: Registered Nurse Type: [id number] Filed: 01/22/2025 12:34 Note Text: Patient was given Tylenol 1,000 MG at 9:24 AM, Today at [facility]. Normal [facility] ANES POSTPROC EVALon 025 ANES POSTPROC EVAL HNO ID: [id number] Author: PAUL MENG MD Service: Anesthesiology Author Type: Anesthesiologist Type: Anesthesia Postprocedure Evaluation Filed: 01/22/2025 12:57 Note Text: POST ANESTHESIA EVALUATION NOTE : 1985 Procedure Summary Date: 01/22/25 Room / Location: [address] Anesthesia Start: 1020 Anesthesia Stop: 1250 Procedure: PANNICULECTOMY (Abdomen) Diagnosis: Intertrigo Weight loss Skin irritation Excessive skin and subcutaneous tissue Symptomatic abdominal panniculus (Intertrigo [L30.4]) (Weight loss [R63.4]) (Skin irritation [R23.8]) (Excessive skin and subcutaneous tissue [L98.7]) (Symptomatic abdominal panniculus [E65]) Surgeons: Arpit Rivas MD Responsible Provider: Paul Meng MD Anesthesia Type: general ASA Status: 2 Anesthesia Type: general Airway Type: LMA Last Vitals Vitals Value Taken Time BP 153/84 01/22/25 12:48 Temp 36C 01/22/25 12:57 Pulse 81 01/22/25 12:55 Resp 15 01/22/25 12:57 SpO2 95 % 01/22/25 12:55 Vitals shown include unfiled device data. Post Anesthesia Patient Status Patient Evaluation: PACU. PACU/ICU Patient Condition: stable. Anticipated Disposition: phase 2 then home. Neurological Status: aware and responsive. Pulmonary Status: breathing comfortably on supplemental oxygen Airway Control: returned to baseline unsupported. Cardiovascular Status: stable. Pain Management: clinically adequate Postoperative Hydration: acceptable. Intraoperative Events: no significant anesthesia events Post Operative Nausea/Vomiting Status: no significant post operative nausea or vomiting Recommendation: continue current plan of care. Anesthesia Observations No Documentation SIGNATURE: Paul Meng MD PATIENT NAME: Candelaria Grant DATE: January 22, 2025 TIME: 12:57 PM CSN: [id number] Normal [facility] ANES PRE-OPon 01-22-2025 ANES PRE-OP HNO ID: [id number] Author: PAUL MENG MD Service: Anesthesiology Author Type: Anesthesiologist Type: Anesthesia Preprocedure Evaluation Filed: 01/22/2025 08:42 Note Text: ANESTHESIOLOGY DAY OF SURGERY NOTE : 1985 Procedure Information Date/Time: 01/22/25 0950 Procedure: PANNICULECTOMY (Abdomen) Location: [address] Surgeons: Arpit Rivas MD Estimated body mass index is 29.52 kg/m? as calculated from the following: Height as of 12/03/24: 174 cm (5' 8.5"). Weight as of 01/07/25: 89.4 kg (197 lb). Most recent hematocrit and potassium results: Hematocrit 39.6 01/07/2025 Potassium 3.8 01/07/2025 Relevant Problems CARDIO (+) Migraine headache NEURO-PSYCH (+) Migraine headache I - PHYSICAL EVALUATION AIRWAY Patient intubated: No. Tracheostomy tube not present Mallampati: II. TM distance: >3 FB. Neck ROM: full ROM without neurological symptoms. Mouth openin FB. Short neck: no. Thick neck: no II - ANESTHESIA PLAN ASA Score: 2 Anesthetic Plan: general Airway type: LMA Monitoring Plan Monitoring plan: standard ASA. Post Procedure Analgesic Plan Postoperative analgesic plan: parenteral or oral opioids and multimodal analgesia. Informed Consent Anesthetic risks, benefits, alternatives, personnel and consent discussed: yes. Patient / Responsible Democrat agrees to proceed: yes Patient / Surrogate agrees to blood products: Yes Discussed the possibility of lip / dental damage: yes No vitals data found for the desired time range. Facility-Administered Medications as of 01/22/2025 Medication Dose Route Frequency lidocaine (PF) 10 mg/mL (1 %) 1-2 mg injection (XYLOCAINE) 0.1-0.2 mL INTRADERMAL PRN lactated ringers iv infusion 5-30 mL/hr INTRAVENOUS CONTINUOUS NaCl 0.9% iv flush bag 20 mL INTRAVENOUS PRN ceFAZolin 2 g in dextrose (iso-osmotic) 50 mL (ANCEF,KEFZOL) 2 g INTRAVENOUS Pre-Op Once acetaminophen 1,000 mg tab(s) (TYLENOL) 1,000 mg ORAL Pre-Op Once promethazine 12.5 mg tab(s) (PHENERGAN) 12.5 mg ORAL Pre-Op Once lactated ringers iv infusion 30 mL/hr INTRAVENOUS CONTINUOUS Outpatient Medications as of 01/22/2025 Medication Sig docusate sodium (COLACE) 100 mg capsule Take 1 capsule by mouth two times a day for 14 days. oxyCODONE IR (ROXICODONE) 5 mg immediate release tablet Take 1 tablet by mouth every 6 hours as needed for pain for up to 3 days. ondansetron (ZOFRAN) 4 mg tablet Take 1 tablet by mouth every 8 hours as needed for nausea/vomiting for up to 10 doses. acetaminophen (TYLENOL EXTRA STRENGTH) 500 mg tablet Take 2 tablets by mouth every 6 hours as needed for pain for up to 7 days. Two (2) X 500 mg tablets = 1,000 mg [] nystatin (MYCOSTATIN) cream Apply to affected area two times a day for 14 days. omeprazole (PRILOSEC) 40 mg capsule Take 1 capsule by mouth once daily. atomoxetine (STRATTERA) 40 mg capsule Take 2 capsules by mouth once daily. It's ok if you want to split this up and take one capsule twice per day instead [id number] idocaine (BMX 1:1:1) 1:1:1 liqd Take 5 mL by mouth every 4 hours as needed. Swish and spit EPINEPHrine (EPIPEN) 0.3 mg/0.3 mL auto-injector Use for allergic reaction levonorgestrel (KYLEENA) 17.5 mcg/24 hrs (5 yrs) 19.5 mg IUD 1 Each by INTRAUTERINE route one time only. flash glucose sensor (FREESTYLE EMILIA 14 DAY SENSOR) kit Apply and use as directed. Dx: Uncontrolled type 2 diabetes without insulin. flash glucose scanning reader (FREESTYLE EMILIA 3 READER) 1 Each once daily. Lancets lancets Test blood sugar(s)2 times daily. Dx: uncontrolled type 2 DM insulin needles, DISPOSABLE, (BD INSULIN PEN NEEDLE UF) 31 gauge x 5/16" use once daily as directed blood sugar diagnostic (BLOOD GLUCOSE TEST) test strip Test blood sugar(s) 2 times daily. Dx: uncontrolled type 2 DM I have interviewed and examined the patient. I have reviewed the medical record and/or the pre-anesthesia evaluation, pertinent labs, and test results. This contains updated information obtained within 48 hours of Surgery/Procedure. SIGNATURE: Paul Meng MD PATIENT NAME: Candelaria Grant DATE: January 22, 2025 TIME: 8:42 AM CSN: [id number] Normal [facility] HISTORY PHYSICALon HISTORY PHYSICAL HNO ID: [id number] Author: ARPIT RIVAS MD Service: Plastic Surgery Author Type: Physician Type: H&P Filed: 01/22/2025 09:48 Note Text: UPDATED HISTORY AND PHYSICAL EXAMINATION SERVICE DATE: January 22, 2025 SERVICE TIME: 9:47 AM PHYSICAL EXAM MUST BE COMPLETED ON ADMISSION The History and Physical (completed in the past 30 days) has been reviewed and the patient has been examined. The contents accurately reflect the patient's condition with the following additions or revisions since the HANDP was completed. Examination indicates no changes. Chest: Clear to auscultation b/l, RRR, no m/r/g. Clear S1 and S2. This HANDP can be found in the Electronic Medical Record SIGNATURE: Arpit Rivas MD Normal [facility] OPERATIVE NOon 01-22-2025 OPERATIVE NO HNO ID: [id number] Author: ARPIT RIVAS MD Service: Plastic Surgery Author Type: Physician Type: Operative Report Filed: 01/25/2025 14:28 Note Text: [facility] - Operative Report [address] [place] [address] [place] CANDELARIA GRANT : 1985 AGE: 39. SEX: F PATIENT TYPE: A HOSP SVC: PLS LOCATION: [id number] ATTENDING PHYSICIAN: Arpit Rivas M.D. CSN NUMBER: [id number] DATE OF SURGERY/PROCEDURE: 01/22/2025 INCISION/PROCEDURE START TIME: 10:45 a.m. INCISION CLOSE/PROCEDURE END TIME: 12:36 p.m. I was present for the entire procedure. I performed all the critical and significant aspects of the procedure myself. There was no Plastic Surgery resident available to help me. The nurse practitioner helped me retract soft tissue during the dissection of the panniculus. She also helped me with closure of the wound. The abdominal panniculus weighed 1350 g. PREOPERATIVE DIAGNOSIS: Symptomatic abdominal panniculus. POSTOPERATIVE DIAGNOSIS: Symptomatic abdominal panniculus. SURGEON: Arpit Rivas M.D. SERVICE COORDINATOR: Latoya Cottrell CNP. SURGERY/PROCEDURE: Panniculectomy. ANESTHESIA: General. INDICATIONS: The patient with a history of massive weight loss. She now has a large symptomatic abdominal panniculus. FINDINGS: Panniculus. DRAINS: Two fifteen-Occitan channel drains. SPECIMENS: None. ESTIMATED BLOOD LOSS: 75 mL. SPECIMENS: None. COMPLICATIONS: None. DESCRIPTION OF PROCEDURE: The patient was taken to the operating room, placed on the table in supine position, and prepped and draped in usual fashion. First, a large incision was made in the lower abdomen approximately 1 cm below the umbilicus. This was done along the preoperative markings. This incision was then carried down to Sreedhar's fascia with sharp dissection. The vessels were controlled with hemoclips. Dissection was then carried along Sreedhar's fascia down to the pubic area. At this point, the lower incision was made and the panniculus was removed. The wound was then irrigated and hemostasis was obtained with electrocautery. Next, the umbilicus was dissected from surrounding soft tissue and left in place. Following this, a triangular area of skin was excised in the periumbilical area. This measured 8 x 12 cm. Once this was completed, the wound was irrigated and final hemostasis was obtained. Two suction drains were placed and brought out through separate stab wounds. The vertical and horizontal incisions were closed in layers with 3-0 Monocryl. Finally, skin was excised over the umbilicus, which was delivered into the wound and inset in layers with 4-0 Monocryl, finally Steri-Strips and sterile dressings were applied. The patient was placed in abdominal binder and transferred to the recovery room in stable condition. Arpit Rivas M.D. RY:[id number] /[id number] Normal [facility] CBC W Auto Differential pane l (Bld)on 01-07-2025 Basophils (Bld) [#/Vol] 0.08 10*3/uL Normal <0.11 [facility] Comment on above: Order Comment: Speci men Type: BLOOD SPECIMENOrdering Facility: [facility] Address: [address] [place] [address] Performed By: #### 5 7021-8 ####[facility] [id number] [place] [address] [place] Basophils/100 WBC (Bld) 0.8 % Normal [facility] Comment on above: Order Comment: Speci men Type: BLOOD SPECIMENOrdering Facility: [facility] Address: [address] [place] [address] Performed By: #### 5 7021-8 ####[facility] [id number] [place] [address] [place] Differential cell count method Nom (Bld) Auto Normal [facility] Comment on above: Order Comment: Speci men Type: BLOOD SPECIMENOrdering Facility: [facility] Address: [address] [place] [address] Performed By: #### 5 7021-8 ####[facility] [id number] [place] [address] [place] Eosinophils (Bld) [#/Vol] 0.20 10*3/uL Normal <0.46 [facility] Comment on above: Order Comment: Speci men Type: BLOOD SPECIMENOrdering Facility: [facility] Address: [address] [place] [address] Performed By: #### 5 7021-8 ####[facility] [id number] [place] [address] [place] Eosinophils/100 WBC (Bld) 2.1 % Normal [facility] Comment on above: Order Comment: Speci men Type: BLOOD SPECIMENOrdering Facility: [facility] Address: [address] [place] [address] Performed By: #### 5 7021-8 ####[facility] [id number] [place] [address] [place] [place] Erythrocyte distribution width (RBC) [Ratio] 12.6 % Normal 11.5-15.0 [facility] Comment on above: Order Comment: Speci men Type: BLOOD SPECIMENOrdering Facility: [facility] Address: [address] [place] [address] Performed By: #### 5 7021-8 ####[facility] LABCLIA [id number] [address] [place] Hematocrit (Bld) [Volume fraction] 39.6 % Normal 36.0-46.0 [facility] Comment on above: Order Comment: Speci men Type: BLOOD SPECIMENOrdering Facility: [facility] Address: [address] [place] [address] Performed By: #### 5 7021-8 ####[facility] LABCLIA [id number] [place] [address] [place] Hemoglobin (Bld) [Mass/Vol] 13.0 g/dL Normal 11.5-15.5 [facility] Comment on above: Order Comment: Speci men Type: BLOOD SPECIMENOrdering Facility: [facility] Address: [address] [place] [address] Performed By: #### 5 7021-8 ####[facility] LABCLIA [id number] [place] [address] [place] Immature granulocytes (Bld) [#/Vol] 10*3/uL Normal <0.10 [facility] Comment on above: Order Comment: Speci men Type: BLOOD SPECIMENOrdering Facility: [facility] Address: [address] [place] [address] Performed By: #### 5 7021-8 ####[facility] LABCLIA [id number] [place] [address] [place] Immature granulocytes/100 WBC (Bld) 0.2 % Normal [facility] Comment on above: Order Comment: Speci men Type: BLOOD SPECIMENOrdering Facility: [facility] Address: [address] [place] [address] Performed By: #### 5 7021-8 ####[facility] LABCLIA [id number] [place] [address] [place] Lymphocytes (Bld) [#/Vol] 2.54 10*3/uL Normal 1.00-4.00 [facility] Comment on above: Order Comment: Speci men Type: BLOOD SPECIMENOrdering Facility: [facility] Address: [address] [place] [address] Performed By: #### 5 7021-8 ####[facility] LABCLIA [id number] [place] [address] [place] Lymphocytes/100 WBC (Bld) 26.7 % Normal [facility] Comment on above: Order Comment: Speci men Type: BLOOD SPECIMENOrdering Facility: [facility] Address: [address] [place] [address] Performed By: #### 5 7021-8 ####[facility] LABCLIA [id number] [place] [address] [place] MCH (RBC) [Entitic mass] 29.9 pg Normal 26.0-34.0 [facility] Comment on above: Order Comment: Speci men Type: BLOOD SPECIMENOrdering Facility: [facility] Address: [address] [place] [address] Performed By: #### 5 7021-8 ####[facility] LABCLIA [id number] [place] [address] [place] MCHC (RBC) [Mass/Vol] 32.8 g/dL Normal 30.5-36.0 [facility] Comment on above: Order Comment: Speci men Type: BLOOD SPECIMENOrdering Facility: [facility] Address: [address] [place] [address] Performed By: #### 5 7021-8 ####[facility] LABCLIA [id number] [place] [address] [place] MCV (RBC) [Entitic vol] 91.0 fL Normal 80.0-100.0 [facility] Comment on above: Order Comment: Speci men Type: BLOOD SPECIMENOrdering Facility: [facility] Address: [address] [place] [address] Performed By: #### 5 7021-8 ####[facility] LABCLIA [id number] [place] [address] [place] Monocytes (Bld) [#/Vol] 0.61 10*3/uL Normal <0.87 [facility] Comment on above: Order Comment: Speci men Type: BLOOD SPECIMENOrdering Facility: [facility] Address: [address] [place] [address] Performed By: #### 5 7021-8 ####[facility] LABCLIA [id number] [address] [place] Monocytes/100 WBC (Bld) 6.4 % Normal [facility] Comment on above: Order Comment: Speci men Type: BLOOD SPECIMENOrdering Facility: [facility] Address: [address] [place] [address] Performed By: #### 5 7021-8 ####[facility] LABCLIA [id number] [place] [address] [place] Neutrophils (Bld) [#/Vol] 6.05 10*3/uL Normal 1.45-7.50 [facility] Comment on above: Order Comment: Speci men Type: BLOOD SPECIMENOrdering Facility: [facility] Address: [address] [place] [address] Performed By: #### 5 7021-8 ####[facility] LABCLIA [id number] [place] [address] [place] Neutrophils/100 WBC (Bld) 63.8 % Normal [facility] Comment on above: Order Comment: Speci men Type: BLOOD SPECIMENOrdering Facility: [facility] Address: [address] [place] [address] Performed By: #### 5 7021-8 ####[facility] LABCLIA [id number] [place] [address] [place] Nucleated RBC (Bld) [#/Vol] 10*3/uL Normal <0.01 [facility] Comment on above: Order Comment: Speci men Type: BLOOD SPECIMENOrdering Facility: [facility] Address: [address] [place] [address] Performed By: #### 5 7021-8 ####[facility] LABCLIA [id number] [place] [address] [place] Nucleated RBC/100 WBC (Bld) [Ratio] 0.0 /100 WBC Normal [facility] Comment on above: Order Comment: Speci men Type: BLOOD SPECIMENOrdering Facility: [facility] Address: [address] [place] [address] Performed By: #### 5 7021-8 ####[facility] LABCLIA [id number] [place] [address] [place] Platelet mean volume (Bld) [Entitic vol] 9.5 fL Normal 9.0-12.7 [facility] Comment on above: Order Comment: Speci men Type: BLOOD SPECIMENOrdering Facility: [facility] Address: [address] [place] [address] Performed By: #### 5 7021-8 ####[facility] LABCLIA [id number] [place] [address] [place] Platelets (Bld) [#/Vol] 331 10*3/uL Normal 150-400 [facility] Comment on above: Order Comment: Speci men Type: BLOOD SPECIMENOrdering Facility: [facility] Address: [address] [place] [address] Performed By: #### 5 7021-8 ####[facility] LABCLIA [id number] [place] [address] [place] RBC (Bld) [#/Vol] 4.35 10*6/uL Normal 3.90-5.20 [facility] Comment on above: Order Comment: Speci men Type: BLOOD SPECIMENOrdering Facility: [facility] Address: [address] [place] [address] Performed By: #### 5 7021-8 ####[facility] LABCLIA [id number] [place] [address] [place] WBC (Bld) [#/Vol] 9.50 10*3/uL Normal 3.70-11.00 [facility] Comment on above: Order Comment: Speci men Type: BLOOD SPECIMENOrdering Facility: [facility] Address: [address] [place] [address] Performed By: #### 5 7021-8 ####[facility] LABCLIA [id number] [address] [facility] CNOVon 01-07-2025 CNOV Office Visit (FAMPWS ) -------- CANDELARIA GRANT ([id number]) 1985 F Date Time Provider Department 01/07/25 2:00 PM GIGI CARRILLO FAMPWS During your visit today, we recorded the following information about you: Temperature Pulse Respiration Blood pressure 98 degrees 76/minute 16/minute 150/90 Weight 89.4 kg Gigi Carrillo, 01/12/2025 11:59 AM Signed Patient presents with: Follow Up HPI: Candelaria Grant is a 39 year old female who presents to the office today for review of health conditions. Concerns today: Elevated blood pressure, admits to a lot of recent stress with trying to get custody of her 's children (3 children). No SI or HI. Wonders if this is affecting her BLOOD PRESSURE Some fatigue symptoms Taking mounjaro 15 mg a week as prescribed. Still working on weight loss process Will be having a paniculectomy surgery upcoming to remove excess abdominal skin as well. Ms. Grant has past history of diabetes. Since our last visit she denies excessive thirst or increased frequency of urination, chest pain or dyspnea , new or unusual visual symptoms, and low sugar/hypoglycemic reactions. Depression- yes, see above- she doesn't want to be on medication for this, situational triggered right now. Follows a diabetic diet some of the time. She is compliant with medication(s) and is tolerating med(s) without any side effects. She reports checking her glucose on a once a day schedule with sugars in the <200 range. Patient's last HgA1C was Hemoglobin A1C (%) Date Value 12/07/2024 5.7 08/27/2024 5.6 09/25/2020 10.1 06/22/2019 9.6 Hemoglobin A1C (POCT) (%) Date Value 10/03/2023 5.5 05/16/2022 9.6 ) Last Ophthalmology exam was within the past 12 months Ms. Grant reports history of hyperlipidemia. Current therapy includes diet and exercise. Denies side effects of muscle weakness or achiness. Her most recent lipid panels are reviewed. Cholesterol, Total (mg/dL) Date Value 08/27/2024 144 09/25/2020 213 HDL Cholesterol (mg/dL) Date Value 08/27/2024 57 09/25/2020 66 LDL Cholesterol, Calculated (mg/dL) Date Value 08/27/2024 70 09/25/2020 108 Triglyceride (mg/dL) Date Value 08/27/2024 88 09/25/2020 194 Ms. Grant indicates a history of hypertension and states that she is feeling well and denies any symptoms referable to elevated blood pressure. Specifically denies headache, chest pain, palpitations, dyspnea, and peripheral edema. Patient denies any side effects of her medication(s) and is compliant with their regimen. Last 3 Encounter BP Readings: Date: BP: 01/07/2025 150/90 12/30/2024 128/84 12/15/2024 150/100 She watches her diet for sodium, low fat and low cholesterol some of the time. She does not check BP's generally. Candelaria gets sporadic irregular exercise. PAST MEDICAL HISTORY Diagnosis Date Abnormal Pap smear of cervix ascus cannot rule out high grade Diabetes mellitus type 2 in obese Gastroesophageal reflux disease without esophagitis Globus sensation Migraine headache Obesity Rectal bleeding 05/14/2017 Added automatically from request for surgery [id number] PAST SURGICAL HISTORY Procedure Laterality Date SECTION HX 03/24/2013 CHOLECYSTECTOMY HX INSERTION OF IUD 2016 Mirena IUD removed 10/20/2020 KYLEENA IUD 10/20/2020 LYSIS OF ADHESIONS 07/04/2023 NEXPLANON INSERTION 05/10/2013 OSTECTOMY CALCANEUS SPUR W/WO PLNTAR FASCIAL RLS Left Dr. Jimenez REPAIR OF NASAL SEPTUM SALPINGECTOMY Bilateral 07/04/2023 Laparoscopic B/L Salpingectomy at [facility]-Dr. Condon SOCIAL HISTORY[1] FAMILY HISTORY Problem Relation Age of Onset No Known Problems Mother Cancer Father pancreatic and renal. Anesthesia Problems Father slow emergence, PONV No Known Problems Brother No Known Problems Son Breast Cancer Maternal Aunt Cervical Cancer Paternal Aunt x2- and one cousin No Known Problems Maternal Grandmother Diabetes Maternal Grandfather Diabetes Paternal Grandfather other (lymphomia) Other maternal cousin other (leukemia) Other cousin Allergies: ALLERGIES Allergen Reactions Macadamia Nut Oil Hives, Swelling, Shortness of Breath Meloxicam Intolerance Headache Current Meds: tirzepatide (MOUNJARO) 15 mg/0.5 mL pen injector Inject 15 mg subcutaneously one time a week. colestipol (COLESTID) 1 gram tablet Take 1 tablet by mouth once daily. For Diarrhea Post Gall Bladder Removal nystatin (MYCOSTATIN) powder Apply 1 application to affected area two times a day as needed (for abdominal fold/groin excoriation/yeast). omeprazole (PRILOSEC) 40 mg capsule Take 1 capsule by mouth once daily. atomoxetine (STRATTERA) 40 mg capsule Take 2 capsules by mouth once daily. It's ok if you want to split this up and take one capsule twice per day instead pfnoocuyuvDOOZN-gazkss-l idocaine (BMX 1:1:1) (more content not included)... Normal [facility] Comprehensive metabolic 2000 panelon 01-07-2025 Albumin [Mass/Vol] 4.3 g/dL Normal 3.9-4.9 [facility] Comment on above: Order Comment: Speci men Type: BLOOD SPECIMENOrdering Facility: [facility] Address: [address] [place] [address] Performed By: #### 2 4323-8 ####[facility] LABCLIA [id number] [place] [address] [place] ALP [Catalytic activity/Vol] 70 U/L Normal 34-123 [facility] Comment on above: Order Comment: Speci men Type: BLOOD SPECIMENOrdering Facility: [facility] Address: [address] [place] [address] Performed By: #### 2 4323-8 ####[facility] LABCLIA [id number] [place] [address] [place] ALT [Catalytic activity/Vol] 12 U/L Normal 7-38 [facility] Comment on above: Order Comment: Speci men Type: BLOOD SPECIMENOrdering Facility: [facility] Address: [address] [place] [address] Performed By: #### 2 4323-8 ####[facility] LABCLIA [id number] [place] [address] [place] Anion gap [Moles/Vol] 13 mmol/L Normal 8-15 [facility] Comment on above: Order Comment: Speci men Type: BLOOD SPECIMENOrdering Facility: [facility] Address: [address] [place] [address] Performed By: #### 2 4323-8 ####[facility] LABCLIA [id number] [place] [address] [place] AST [Catalytic activity/Vol] 16 U/L Normal 13-35 [facility] Comment on above: Order Comment: Speci men Type: BLOOD SPECIMENOrdering Facility: [facility] Address: [address] [place] [address] Performed By: #### 2 4323-8 ####[facility] LABCLIA [id number] [place] [address] [place] Bilirubin [Mass/Vol] 0.3 mg/dL Normal 0.2-1.3 [facility] Comment on above: Order Comment: Speci men Type: BLOOD SPECIMENOrdering Facility: [facility] Address: [address] [place] [address] Performed By: #### 2 4323-8 ####[facility] LABCLIA [id number] [place] [address] [place] Calcium [Mass/Vol] 9.4 mg/dL Normal 8.5-10.2 [facility] Comment on above: Order Comment: Speci men Type: BLOOD SPECIMENOrdering Facility: [facility] Address: [address] [place] [address] Performed By: #### 2 4323-8 ####[facility] LABCLIA [id number] [place] [address] [place] Chloride [Moles/Vol] 102 mmol/L Normal 98-107 [facility] Comment on above: Order Comment: Speci men Type: BLOOD SPECIMENOrdering Facility: [facility] Address: [address] [place] [address] Performed By: #### 2 4323-8 ####[facility] LABCLIA [id number] [place] [address] [place] CO2 [Moles/Vol] 24 mmol/L Normal 22-30 [facility] Comment on above: Order Comment: Speci men Type: BLOOD SPECIMENOrdering Facility: [facility] Address: [address] [place] [address] Performed By: #### 2 4323-8 ####[facility] LABCLIA [id number] [place] [address] [place] Creatinine [Mass/Vol] 0.65 mg/dL Normal 0.58-0.96 [facility] Comment on above: Order Comment: Jorgito sims Type: BLOOD SPECIMENOrdering Facility: [facility] Address: [address] [place] [address] Performed By: #### 2 4323-8 ####[facility] LABCLIA [id number] [place] [address] [place] eGFRcr SerPlBld CKD-EPI 2020 114 mL/min/1.73m??? Normal >=60 [facility] Comment on above: Order Comment: Jorgito sims Type: BLOOD SPECIMENOrdering Facility: [facility] Address: [address] [place] [address] Result Comment: Rivka mated Glomerular Filtration Rate (eGFR) is calculated using the 2020 CKD-EPI creatinine equation. This equation utilizes serum creatinine, sex, and age as parameters. The creatinine assay has traceable calibration to isotope dilution-mass spectrometry. Refer to KDIGO guidelines for clinical interpretation. In patients with unstable renal function, e.g. those with acute kidney injury, the eGFR may not accurately reflect actual GFR. Performed By: #### 2 4323-8 ####[facility] LABCLIA [id number] [place] [address] [place] Glucose [Mass/Vol] 89 mg/dL Normal 74-99 [facility] Comment on above: Order Comment: Jorgito sims Type: BLOOD SPECIMENOrdering Facility: [facility] Address: [address] [place] [address] Result Comment: The [place] [employer] (ADA) provides guidance for cutoff values for fasting glucose and random glucose. The ADA defines fasting as no caloric intake for at least 8 hours. Fasting plasma glucose results between 100 to 125 mg/dL indicate increased risk for diabetes (prediabetes). Fasting plasma glucose results greater than or equal to 126 mg/dL meet the criteria for diagnosis of diabetes. In the absence of unequivocal hyperglycemia, results should be confirmed by repeat testing. In a patient with classic symptoms of hyperglycemia or hyperglycemic crisis, random plasma glucose results greater than or equal to 200 mg/dL meet the criteria for diagnosis of diabetes. Reference: Standards of Medical Care in Diabetes 2016, [place] [employer]. Diabetes Care. 2016.39(Suppl 1). Performed By: #### 2 4323-8 ####[facility] LABCLIA [id number] [place] [address] [place] Potassium [Moles/Vol] 3.8 mmol/L Normal 3.7-5.1 [facility] Comment on above: Order Comment: Speci men Type: BLOOD SPECIMENOrdering Facility: [facility] Address: [address] [place] [address] Performed By: #### 2 4323-8 ####[facility] LABCLIA [id number] [place] [address] [place] Protein [Mass/Vol] 7.4 g/dL Normal 6.3-8.0 [facility] Comment on above: Order Comment: Speci men Type: BLOOD SPECIMENOrdering Facility: [facility] Address: [address] [place] [address] Performed By: #### 2 4323-8 ####[facility] LABCLIA [id number] [place] [address] [place] Sodium [Moles/Vol] 139 mmol/L Normal 136-144 [facility] Comment on above: Order Comment: Speci men Type: BLOOD SPECIMENOrdering Facility: [facility] Address: [address] [place] [address] Performed By: #### 2 4323-8 ####[facility] LABCLIA [id number] [place] [address] [place] Urea nitrogen [Mass/Vol] 7 mg/dL Normal 7-21 [facility] Comment on above: Order Comment: Speci men Type: BLOOD SPECIMENOrdering Facility: [facility] Address: [address] [place] [address] Performed By: #### 2 4323-8 ####[facility] LABCLIA [id number] [place] [address] [place] CNOVon 01-03-2025 CNOV Office Visit (PLCOLB ) -------- CANDELARIA GRANT ([id number]) 1985 F Date Time Provider Department 01/03/25 10:30 AM ARPIT RIVAS During your visit today, we recorded the following information about you: Arpit Rivas MD 01/03/2025 12:58 PM Signed Plastic Surgery Note CC: Pre-op/Consent for Surgery HPI: Candelaria is a 39 year old female here today to discuss upcoming surgery. She is scheduled for a panniculectomy on 01/22/2025 at [facility]. Seen and evuated by Anthony Snider NP on 12/03/2024, case submitted to insurance and approved. PACC: 12/31/24, optimally prepared for surgery. Prior labs acceptable for procedure, patient does not require consults for optimization at this time First post op visit on 01/24/25 Weight loss achieved through diet, exercise, and Mounjaro. Highest weight: 300 lbs Current weight: 195 lbs -Weight loss of 100 lbs or more: yes -Patients weight has been stable for 6 months. -The patient does complain of recurrent rashes, intertrigo with dermatitis occuring on the opposed surface of the skin that has not responded to conventional treatment for a period of 3 months. Treatments tried: Cream: nystatin and Powder: nystatin The patient does have a history of infection. Panniculus causes interference with activities of daily living: Yes, showering, bathing and completing job tasks (lifting/moving boxes). History of abdominal hernia No . History of abdominal surgery: , cholecystectomy, and tubal ligation History of Heart Conditions: No History of Lung Conditions: No History of Diabetes: Yes, DM2 Recent A1C (12/07/2024) 5.7 History of HTN: No History of Autoimmune Conditions: No Currently Taking Blood Thinners: No History of Blood Clots: No REVIEW OF SYSTEMS: All negative except for: GENERAL: []weight loss []malaise []fevers HEENT: []frequent or significant headaches []changes in hearing []change in vision []nose bleeds []other nasal problems NECK: []lumps []goiter []pain and significant neck swelling RESPIRATORY: []cough []hemoptysis []wheezing []COPD []dyspnea []shortness of breath CARDIOVASCULAR: []chest pain []leg swelling []hypertension []CHF []palpitations GI: []nausea []vomiting []diarrhea MUSCULOSKELETAL: [] joint pain or swelling [] back pain []muscle pain SKIN: [] skin lesions []rash []itching PSYCH: []sleep disturbance []mood disorder []recent psychosocial stressors HEMATOLOGY/LYMPHOLOGY: []prolonged bleeding []bruising easily []swollen nodes ENDOCRINE: []cold intolerance []heat intolerance []polyuria []polydipsia []goiter [] Diabetes Nicotine Use: No Objective: PAST MEDICAL HISTORY Diagnosis Date Abnormal Pap smear of cervix ascus cannot rule out high grade Diabetes mellitus type 2 in obese Gastroesophageal reflux disease without esophagitis Globus sensation Migraine headache Obesity Rectal bleeding 05/14/2017 Added automatically from request for surgery [id number] PAST SURGICAL HISTORY Procedure Laterality Date SECTION HX 03/24/2013 CHOLECYSTECTOMY HX INSERTION OF IUD 2016 Mirena IUD removed 10/20/2020 KYLEENA IUD 10/20/2020 LYSIS OF ADHESIONS 07/04/2023 NEXPLANON INSERTION 05/10/2013 OSTECTOMY CALCANEUS SPUR W/WO PLNTAR FASCIAL RLS Left Dr. Jimenez REPAIR OF NASAL SEPTUM SALPINGECTOMY Bilateral 07/04/2023 Laparoscopic B/L Salpingectomy at [facility]-Dr. Condon Current Outpatient Medications Medication Sig Dispense Refill colestipol (COLESTID) 1 gram tablet Take 1 tablet by mouth once daily. For Diarrhea Post Gall Bladder Removal 90 tablet 1 nystatin (MYCOSTATIN) powder Apply 1 application to affected area two times a day as needed (for abdominal fold/groin excoriation/yeast). 15 g 5 tirzepatide (MOUNJARO) 12.5 mg/0.5 mL pen injector Inject 12.5 mg subcutaneously one time a week. 2 mL 2 omeprazole (PRILOSEC) 40 mg capsule Take 1 capsule by mouth once daily. 30 capsule 2 atomoxetine (STRATTERA) 40 mg capsule Take 2 capsules by mouth once daily. It's ok if you want to split this up and take one capsule twice per day instead 180 capsule 0 ugebfmztwuINIZP-gsdjco-d idocaine (BMX 1:1:1) 1:1:1 liqd Take 5 mL by mouth every 4 hours as needed. Swish and spit 400 mL 0 EPINEPHrine (EPIPEN) 0.3 mg/0.3 mL auto-injector Use for allergic reaction 2 Each 1 levonorgestrel (KYLEENA) 17.5 mcg/24 hrs (5 yrs) 19.5 mg IUD 1 Each by INTRAUTERINE route one time only. flash glucose sensor (FREESTYLE EMILIA 14 DAY SENSOR) kit Apply and use as directed. Dx: Uncontrolled type 2 diabetes without insulin. 1 Kit 3 flash glucose scanning reader (FREESTYLE EMILIA 3 READER) 1 Each once daily. 1 Each 5 Lancets lancets Test blood sugar(s)2 times daily. Dx: uncontrolled type 2 DM 100 Each 11 insulin needles, DISPOSABLE, (BD INSULIN PEN NEEDLE UF) 31 gauge x 5/16" use once daily as directed 100 Each 1 blood sugar wilberto (more content not included)... Normal [facility] HISTORY PHYSICALon HISTORY PHYSICAL HNO ID: [id number] Author: TASH LUIS APRN.GUM [employer]OOK Service: ? Author Type: Nurse Practitioner Type: H&P Filed: 12/30/2024 10:10 Note Text: [facility] HISTORY AND PHYSICAL EXAMINATION SERVICE DATE: 12/30/2024 SERVICE TIME: 10:10 AM PRIMARY CARE PHYSICIAN: Gigi Carrillo DO Assessment Patient has the following medical conditions which may affect konstantin-operative course: Migraine headache Assessment: Patient reports headaches occurring occasionally. Resolves with motrin or tylenol or excedrin . Denies any new or worsening symptoms. Follows with PCP. Functional diarrhea Assessment: Reports improvement with colestipol (s/p cholecystectomy). Denies any new or worsening symptoms. Left knee pain Assessment: Reports intermittent knee pain. Denies any new or worsening symptoms. Depressed mood Assessment: Mood stable. Follows PCP. Hyperlipidemia LDL goal <100 Assessment: Patient not currently on any medications. Patient is diet-controlled. Diabetes (HCC) Assessment: Reports compliance to mounjaro. Hemoglobin A1C (%) Date Value 12/07/2024 5.7 08/27/2024 5.6 09/25/2020 10.1 06/22/2019 9.6 Hemoglobin A1C (POCT) (%) Date Value 10/03/2023 5.5 05/16/2022 9.6 ANESTHESIA FINDINGS: Intubation History: No history of difficult intubation. No abnormal airway history Significant Anesthesia Considerations: none Airway History: No history of difficult airway No abnormal airway history Ji Activity Status Index: METS: Walk indoors, such as around the house (1.75 METs) Do light work around the house, such as dusting or washing dishes (2.70 METs) Take care of self; that is eating, dressing, bathing, using the toilet (2.75 METs) Walk a block or two on level ground (2.75 METs) Do moderate work around the house, such as vacuuming, sweeping floors, or carrying in groceries (3.50 METs) Climb a flight of stairs or walk up a hill (5.50 METs) Participate in moderate recreational activites, such as golf, bowling, dancing, doubles tennis, or throwing a baseball or football (6.00 METs) DASI Score: 24.95 Patient denies any chest pain or undue shortness of breath with the above physical activity. Clinical Frailty Scale: 3. Well, with treated comorbid disease STOP-Bang Score: Denies snoring loudly Denies feeling tired, fatigued, or sleepy during the daytime Has not been observed to stop breathing or choking/gasping during sleep Denies having high blood pressure BMI less than or equal to 35 kg/m2 Patient 50 years old or younger Does not have a large neck Non-male patient STOP-Bang Score: 0 I - PHYSICAL EVALUATION AIRWAY Patient intubated: No. Tracheostomy tube not present Mallampati: II. TM distance: >3 FB. Neck ROM: full ROM without neurological symptoms. Mouth openin FB. Short neck: no. Thick neck: no DENTAL Dental findings: edentulous. Dentures, upper: complete. Dentures, lower: complete. II - ANESTHESIA PLAN Anesthetic plan additional comments: *PACC/TCI - anesthesia choice. Informed Consent Prepared for Surgery: optimally prepared for surgery. Prior labs acceptable for procedure. CONSULTS: Patient does not require consults for optimization at this time Planned Anesthetic: anesthesia choice The Following Tests/Procedures Have Been Initiated: No orders of the defined types were placed in this encounter. REASON FOR VISIT: Candelaria Grant is a 39 year old female who is scheduled for Procedure(s): PANNICULECTOMY (N/A) at the request of Dr. Arpit Rivas for consultation. My final recommendation will be communicated back to the requesting physician by way of shared medical record or letter. Subjective The patient has the following: COVID-19 Immunization Status Current Care Gaps Covid-19 Vaccine () Never done 02/27/2024 Postponed until 02/26/2025 by Goldie Milton LPN (Declined at this time) 04/25/2023 Postponed until 04/25/2024 by Goldie Milton LPN (Declined at this time) 02/13/2022 Postponed until 02/13/2023 by Goldie Milton LPN (Declined at this time) Only the first 3 history entries have been loaded, but more history exists. CHIEF COMPLAINT: pre op HPI: Patient is a 39 year old female scheduled for pre anesthesia consultation for elective procedure on 01/22/2025 at [facility]. REVIEW OF SYSTEMS: General: No weight loss, malaise or fevers. Neurological: Positive for: headaches. Negative for: delirium, dementia, impaired sensorium, peripheral neuropathy, seizures, TIA and strokes. Respiratory: Denies any shortness of breath, chest pain, wheezing, or cough. Negative for: asthma, bronchitis, COPD, current cough, bronchodilator used daily for the last 3 months, dyspnea, home oxygen, orthopnea, pneumonia within 6 weeks, tobacco use, URI < 2 weeks and obstructive sleep apnea. Cardiovascular: Denies any (more content not included)... Normal [facility] Bacteria Ur Culton 5 Bacteria identified Cx Nom (U) ORGANISM ID: 1 <10,000 CFU/ml Normal urogenital zamzam Normal [facility] Comment on above: Performed By: #### 6 30-4 ####[facility] LABCLIA [id number] [address] [address] [place] CNOVon 12-15-2024 CNOV Office Visit (FAMPWS ) -------- CANDELARIA GRANT ([id number]) 1985 F Date Time Provider Department 12/15/24 5:20 PM [facility] During your visit today, we recorded the following information about you: Temperature Pulse Respiration Blood pressure 98.5 degrees 83/minute 16/minute 150/100 Weight 88.5 kg Mook Mcguire APRN.GUM COOK 12/15/2024 7:02 PM Signed This is a 39 year old female who presents today with: The patient is a 39-year-old female with diabetes mellitus, presenting for evaluation of persistent sinus congestion and facial pain despite prior antibiotic therapy. HISTORY OF PRESENT ILLNESS: Sinus Congestion: - Persistent sinus congestion - Completed a course of antibiotics as prescribed. - Using Mucinex and Robitussin for symptom relief. - Reports sinus pain localized to the maxillary sinus - cough is intermittent but persistent and harsh at times, has coughed so hard she had blood tinged sputum - Nasal discharge is clear, sometimes greenish-yellow; cough produces light yellow sputum. - Denies fevers; reports feeling exhausted. - History of sinus surgery; followed by ENT. Dysuria: - Developed dysuria after completing antibiotics. - Took Diflucan for presumed yeast infection - Reports urgency and bladder spasm sensations with some incontinence - Denies hematuria, sores, or excoriation, or burning (did previously but resolved) PAST MEDICAL HISTORY: PAST MEDICAL HISTORY Diagnosis Date Abnormal Pap smear of cervix ascus cannot rule out high grade Diabetes mellitus type 2 in obese Gastroesophageal reflux disease without esophagitis Globus sensation Migraine headache Obesity PAST SURGICAL HISTORY Procedure Laterality Date SECTION HX 03/24/2013 CHOLECYSTECTOMY HX INSERTION OF IUD 2017 Mirena IUD removed 10/20/2020 KYLEENA IUD 10/20/2020 LYSIS OF ADHESIONS 07/04/2023 NEXPLANON INSERTION 05/10/2013 OSTECTOMY CALCANEUS SPUR W/WO PLNTAR FASCIAL RLS Left Dr. Jimenez REPAIR OF NASAL SEPTUM SALPINGECTOMY Bilateral 07/04/2023 Laparoscopic B/L Salpingectomy at [facility]-Dr. Condon ALLERGIES Macadamia Nut Oil and Meloxicam MEDICATIONS Current Outpatient Medications Medication Sig fluconazole (DIFLUCAN) 150 mg tablet Take 1 tablet by mouth as directed. May repeat in 3 days if symptomatic nystatin (MYCOSTATIN) powder Apply 1 application to affected area two times a day as needed (for abdominal fold/groin excoriation/yeast). tirzepatide (MOUNJARO) 12.5 mg/0.5 mL pen injector Inject 12.5 mg subcutaneously one time a week. omeprazole (PRILOSEC) 40 mg capsule Take 1 capsule by mouth once daily. atomoxetine (STRATTERA) 40 mg capsule Take 2 capsules by mouth once daily. It's ok if you want to split this up and take one capsule twice per day instead colestipol (COLESTID) 1 gram tablet Take 1 tablet by mouth once daily. For Diarrhea Post Gall Bladder Removal ysncvztsovTHPAL-ddpbag-y idocaine (BMX 1:1:1) 1:1:1 liqd Take 5 mL by mouth every 4 hours as needed. Swish and spit EPINEPHrine (EPIPEN) 0.3 mg/0.3 mL auto-injector Use for allergic reaction levonorgestrel (KYLEENA) 17.5 mcg/24 hrs (5 yrs) 19.5 mg IUD 1 Each by INTRAUTERINE route one time only. flash glucose sensor (FREESTYLE EMILIA 14 DAY SENSOR) kit Apply and use as directed. Dx: Uncontrolled type 2 diabetes without insulin. flash glucose scanning reader (FREESTYLE EIMLIA 3 READER) 1 Each once daily. Lancets lancets Test blood sugar(s)2 times daily. Dx: uncontrolled type 2 DM insulin needles, DISPOSABLE, (BD INSULIN PEN NEEDLE UF) 31 gauge x 5/16" use once daily as directed blood sugar diagnostic (BLOOD GLUCOSE TEST) test strip Test blood sugar(s) 2 times daily. Dx: uncontrolled type 2 DM phenazopyridine (PYRIDIUM) 100 mg tablet Take 2 tablets by mouth three times a day for 3 days. For bladder spasms No current facility-administered medications for this visit. FAMILY HISTORY Problem Relation Age of Onset No Known Problems Mother Cancer Father pancreatic and renal. Anesthesia Problems Father slow emergence, PONV No Known Problems Brother No Known Problems Son Breast Cancer Maternal Aunt Cervical Cancer Paternal Aunt x2- and one cousin No Known Problems Maternal Grandmother Diabetes Maternal Grandfather Diabetes Paternal Grandfather other (lymphomia) Other maternal cousin other (leukemia) Other cousin SOCIAL HISTORY[1] REVIEW OF SYSTEMS Constitutional: (+) fatigue, (+) malaise, (-) fever Ears/Nose/Mouth/Throat: (+) sinus pain, (+) nasal congestion, (+) yellow nasal discharge Cardiovascular: (+) chest pain radiating to back Respiratory: (+) cough, (+) hemoptysis, (+) wheezing, (+) yellow sputum Genitourinary: (+) urinary urgency, (+) bladder spasms, (-) dysuria, (-) genital sores Musculoskeletal: (+) upper back pain See HPI EXAM: BP 150/100 (BP Site: (more content not included)... Normal [facility] 12-08-2024 [facility] Telephone (GSTNOR) -------- CANDELARIA GRANT ([id number]) 1985 F Date Time Provider Department 12/08/24 CHANG KENT GSTNOR During your visit today, we recorded the following information about you: Allergies As of Date: 12/08/2024 Noted Allergy Reaction MACADAMIA NUT OIL 04/08/2014 4 - Hives 7 - Swelling 12 - Shortness of Breath MELOXICAM 08/30/2015 5 - Intolerance Comments: Headache Date Reviewed: 12/03/2024 Reviewed by: Rafaela Caceres MA - Fully Assessed Reason for Visit: Appointment [186] Prescriptions as of 12/08/2024 - amoxicillin-clavulanate potassium (AUGMENTIN) 875-125 mg per tablet Take 1 tablet by mouth two times a day for 5 days. - fluconazole (DIFLUCAN) 150 mg tablet Take 1 tablet by mouth as directed. May repeat in 3 days if symptomatic - nystatin (MYCOSTATIN) powder Apply 1 application to affected area two times a day as needed (for abdominal fold/groin excoriation/yeast). - tirzepatide (MOUNJARO) 12.5 mg/0.5 mL pen injector Inject 12.5 mg subcutaneously one time a week. - omeprazole (PRILOSEC) 40 mg capsule Take 1 capsule by mouth once daily. - atomoxetine (STRATTERA) 40 mg capsule Take 2 capsules by mouth once daily. It's ok if you want to split this up and take one capsule twice per day instead - colestipol (COLESTID) 1 gram tablet Take 1 tablet by mouth once daily. For Diarrhea Post Gall Bladder Removal - osfiyykwitDTHUF-nqknvp-o idocaine (BMX 1:1:1) 1:1:1 liqd Take 5 mL by mouth every 4 hours as needed. Swish and spit - EPINEPHrine (EPIPEN) 0.3 mg/0.3 mL auto-injector Use for allergic reaction - levonorgestrel (KYLEENA) 17.5 mcg/24 hrs (5 yrs) 19.5 mg IUD 1 Each by INTRAUTERINE route one time only. - flash glucose sensor (FREESTYLE EMILIA 14 DAY SENSOR) kit Apply and use as directed. Dx: Uncontrolled type 2 diabetes without insulin. - flash glucose scanning reader (FREESTYLE EMILIA 3 READER) 1 Each once daily. - Lancets lancets Test blood sugar(s)2 times daily. Dx: uncontrolled type 2 DM - insulin needles, DISPOSABLE, (BD INSULIN PEN NEEDLE UF) 31 gauge x 5/16" use once daily as directed - blood sugar diagnostic (BLOOD GLUCOSE TEST) test strip Test blood sugar(s) 2 times daily. Dx: uncontrolled type 2 DM Problem List As Of Date 12/08/2024 Noted Resolved History of gestational diabetes [Z86.32] 02/15/2014 Depressed mood [R45.89] 02/15/2014 Headache [R51] 02/15/2014 10/17/2015 Impaired glucose metabolism [R73.09] 02/15/2014 10/17/2015 Family history of ovarian cancer [Z80.41] 06/13/2014 BMI 38.0-38.9,adult [Z68.38] 06/28/2014 Migraine headache [G43.909] 09/21/2014 Functional diarrhea [K59.1] 09/19/2015 Uncontrolled type 2 diabetes mellitus without c*10/17/2015 Rectal bleeding [K62.5] 05/14/2017 LUQ abdominal pain [R10.12] 05/14/2017 Altered bowel habits [R19.4] 05/14/2017 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] 09/09/2019 Diabetes (HCC) [E11.9] 09/09/2019 Hyperlipidemia LDL goal <100 [E78.5] 09/09/2019 TMJ tenderness, right [M26.621] 09/13/2019 Abnormal Pap smear of cervix [R87.619] Left knee pain [M25.562] 05/02/2023 Weight loss due to medication [R63.4, T50.905A] 11/11/2023 Encounter Status:Closed by ADALID DOWNEY on 12/08/24 Normal [facility] CBC W Auto Differential pane l (Bld)on 12-07-2024 Basophils (Bld) [#/Vol] 0.14 10*3/uL High <0.11 [facility] Comment on above: Order Comment: Speci men Type: BLOOD SPECIMENOrdering Facility: [facility] Address: [address] [place] [address] Performed By: #### 5 7021-8 ####[facility] LABCLIA [id number] [place] [address] [place] Basophils/100 WBC (Bld) 1.4 % Normal [facility] Comment on above: Order Comment: Speci men Type: BLOOD SPECIMENOrdering Facility: [facility] Address: [address] [place] [address] Performed By: #### 5 7021-8 ####[facility] LABCLIA [id number] [place] [address] [place] Differential cell count method Nom (Bld) Auto Normal [facility] Comment on above: Order Comment: Speci men Type: BLOOD SPECIMENOrdering Facility: [facility] Address: [address] [place] [address] Performed By: #### 5 7021-8 ####[facility] LABCLIA [id number] [place] [address] [place] Eosinophils (Bld) [#/Vol] 1.03 10*3/uL High <0.46 [facility] Comment on above: Order Comment: Speci men Type: BLOOD SPECIMENOrdering Facility: [facility] Address: [address] [place] [address] Performed By: #### 5 7021-8 ####[facility] LABIA [id number] [place] [address] [place] Eosinophils/100 WBC (Bld) 10.2 % Normal [facility] Comment on above: Order Comment: Speci men Type: BLOOD SPECIMENOrdering Facility: [facility] Address: [address] [place] [address] Performed By: #### 5 7021-8 ####[facility] LABIA [id number] [place] [address] [place] Erythrocyte distribution width (RBC) [Ratio] 12.6 % Normal 11.5-15.0 [facility] Comment on above: Order Comment: Speci men Type: BLOOD SPECIMENOrdering Facility: [facility] Address: [address] [place] [address] Performed By: #### 5 7021-8 ####[facility] LABIA [id number] [place] [address] [place] Hematocrit (Bld) [Volume fraction] 38.9 % Normal 36.0-46.0 [facility] Comment on above: Order Comment: Speci men Type: BLOOD SPECIMENOrdering Facility: [facility] Address: [address] [place] [address] Performed By: #### 5 7021-8 ####[facility] LABCLIA [id number] [place] [address] [place] Hemoglobin (Bld) [Mass/Vol] 13.4 g/dL Normal 11.5-15.5 [facility] Comment on above: Order Comment: Speci men Type: BLOOD SPECIMENOrdering Facility: [facility] Address: [address] [place] [address] Performed By: #### 5 7021-8 ####[facility] LABCLIA [id number] [place] [address] [place] Immature granulocytes (Bld) [#/Vol] 0.04 10*3/uL Normal <0.10 [facility] Comment on above: Order Comment: Speci men Type: BLOOD SPECIMENOrdering Facility: [facility] Address: [address] [place] [address] Performed By: #### 5 7021-8 ####[facility] LABIA [id number] [place] [address] [place] Immature granulocytes/100 WBC (Bld) 0.4 % Normal [facility] Comment on above: Order Comment: Speci men Type: BLOOD SPECIMENOrdering Facility: [facility] Address: [address] [place] [address] Performed By: #### 5 7021-8 ####[facility] LABCLIA [id number] [place] [address] [place] Lymphocytes (Bld) [#/Vol] 3.12 10*3/uL Normal 1.00-4.00 [facility] Comment on above: Order Comment: Speci men Type: BLOOD SPECIMENOrdering Facility: [facility] Address: [address] [place] [address] Performed By: #### 5 7021-8 ####[facility] LABIA [id number] [place] [address] [place] Lymphocytes/100 WBC (Bld) 31.0 % Normal [facility] Comment on above: Order Comment: Speci men Type: BLOOD SPECIMENOrdering Facility: [facility] Address: [address] [place] [address] Performed By: #### 5 7021-8 ####[facility] LABIA [id number] [place] [address] [place] MCH (RBC) [Entitic mass] 30.3 pg Normal 26.0-34.0 [facility] Comment on above: Order Comment: Speci men Type: BLOOD SPECIMENOrdering Facility: [facility] Address: [address] [place] [address] Performed By: #### 5 7021-8 ####[facility] LABIA [id number] [place] [address] [place] MCHC (RBC) [Mass/Vol] 34.4 g/dL Normal 30.5-36.0 [facility] Comment on above: Order Comment: Speci men Type: BLOOD SPECIMENOrdering Facility: [facility] Address: [address] [place] [address] Performed By: #### 5 7021-8 ####[facility] LABIA [id number] [place] [address] [place] MCV (RBC) [Entitic vol] 88.0 fL Normal 80.0-100.0 [facility] Comment on above: Order Comment: Speci men Type: BLOOD SPECIMENOrdering Facility: [facility] Address: [address] [place] [address] Performed By: #### 5 7021-8 ####[facility] LABIA [id number] [place] [address] [place] Monocytes (Bld) [#/Vol] 0.62 10*3/uL Normal <0.87 [facility] Comment on above: Order Comment: Speci men Type: BLOOD SPECIMENOrdering Facility: [facility] Address: [address] [place] [address] Performed By: #### 5 7021-8 ####[facility] LABCLIA [id number] [place] [address] [place] Monocytes/100 WBC (Bld) 6.2 % Normal [facility] Comment on above: Order Comment: Speci men Type: BLOOD SPECIMENOrdering Facility: [facility] Address: [address] [place] [address] Performed By: #### 5 7021-8 ####[facility] LABCLIA [id number] [place] [address] [place] Neutrophils (Bld) [#/Vol] 5.12 10*3/uL Normal 1.45-7.50 [facility] Comment on above: Order Comment: Speci men Type: BLOOD SPECIMENOrdering Facility: [facility] Address: [address] [place] [address] Performed By: #### 5 7021-8 ####[facility] LABCLIA [id number] [place] [address] [place] Neutrophils/100 WBC (Bld) 50.8 % Normal [facility] Comment on above: Order Comment: Speci men Type: BLOOD SPECIMENOrdering Facility: [facility] Address: [address] [place] [address] Performed By: #### 5 7021-8 ####[facility] LABCLIA [id number] [place] [id number] [place] Nucleated RBC (Bld) [#/Vol] 10*3/uL Normal <0.01 [facility] Comment on above: Order Comment: Speci men Type: BLOOD SPECIMENOrdering Facility: [facility] Address: [address] [place] [address] Performed By: #### 5 7021-8 ####[facility] LABCLIA [id number] [place] [id number] [place] Nucleated RBC/100 WBC (Bld) [Ratio] 0.0 /100 WBC Normal [facility] Comment on above: Order Comment: Speci men Type: BLOOD SPECIMENOrdering Facility: [facility] Address: [address] [place] [address] Performed By: #### 5 7021-8 ####[facility] LABCLIA [id number] [place] [address] [place] Platelet mean volume (Bld) [Entitic vol] 10.4 fL Normal 9.0-12.7 [facility] Comment on above: Order Comment: Speci men Type: BLOOD SPECIMENOrdering Facility: [facility] Address: [address] [place] [address] Performed By: #### 5 7021-8 ####[facility] LABCLIA [id number] [place] [address] [place] Platelets (Bld) [#/Vol] 308 10*3/uL Normal 150-400 [facility] Comment on above: Order Comment: Speci men Type: BLOOD SPECIMENOrdering Facility: [facility] Address: [address] [place] [address] Performed By: #### 5 7021-8 ####[facility] LABIA [id number] [place] [address] [place] RBC (Bld) [#/Vol] 4.42 10*6/uL Normal 3.90-5.20 [facility] Comment on above: Order Comment: Speci men Type: BLOOD SPECIMENOrdering Facility: [facility] Address: [address] [place] [address] Performed By: #### 5 7021-8 ####[facility] LABCLIA [id number] [place] [address] [place] WBC (Bld) [#/Vol] 10.07 10*3/uL Normal 3.70-11.00 [facility] Comment on above: Order Comment: Speci men Type: BLOOD SPECIMENOrdering Facility: [facility] Address: [address] [place] [address] Performed By: #### 5 7021-8 ####[facility] LABIA [id number] [place] [address] [place] HbA1c (Bld)on 12-07-2024 Average glucose Estimated from glycated hemoglobin (Bld) [Mass/Vol] 117 mg/dL Normal [facility] Comment on above: Order Comment: Speci men Type: BLOOD SPECIMENOrdering Facility: [facility] Address: [address] [place] [address] Result Comment: eAG: (Estimated average glucose) is a calculated value from HgbA1c and is office machines sales representative of the average blood glucose level in the last 2-3 month period. Performed By: #### 5 5454-3 ####[facility] LABIA [id number] [place] [address] [place] HbA1c (Bld) [Mass fraction] 5.7 % High 4.3-5.6 [facility] Comment on above: Order Comment: [facility] Type: BLOOD SPECIMENOrdering Facility: [facility] Address: [address] [place] [address] Result Comment: [place]al [place] Diabetes Association guidelines indicate that patients with HgbA1c in the range 5.7-6.4% are at increased risk for development of diabetes, and intervention by lifestyle modification may be beneficial. HgbA1c greater or equal to 6.5% is considered diagnostic of diabetes. Performed By: #### 5 5454-3 ####[facility] LABCLIA [id number] [place] [id number] [place] Iron and Iron binding capaci ty panelon 12-07-2024 Iron [Mass/Vol] 86 ug/dL Normal 41-186 [facility] Comment on above: Order Comment: [facility] Type: BLOOD SPECIMENOrdering Facility: [facility] Address: [address] [place] [address] Performed By: #### 5 0190-8 ####[facility] LABCLIA [id number] [place] [address] [place] Iron binding capacity [Mass/Vol] 314 ug/dL Normal 232-386 [facility] Comment on above: Order Comment: Speci men Type: BLOOD SPECIMENOrdering Facility: [facility] Address: [address] [place] [address] Performed By: #### 5 0190-8 ####[facility] LABIA [id number] [address] [place] Iron/TIBC [Molar ratio] 27.4 % Normal 15.0-57.0 [facility] Comment on above: Order Comment: Speci men Type: BLOOD SPECIMENOrdering Facility: [facility] Address: [address] [place] [address] Performed By: #### 5 [id number] ####[facility] LABIA [id number] [address] OF [place] CNOVon 12-03-2024 CNOV Office Visit (PLASHL ) -------- CANDELARIA GRANT Maximo ([id number]) 1985 F Date Time Provider Department 12/03/24 10:30 AM ALEJANDRO SNIDER During your visit today, we recorded the following information about you: Weight Height 86 kg 1.74 m Alejandro Snider, MUCK BOSS.GUM COOK 12/03/2024 5:13 PM Signed Plastic Surgery Note CC: Consult for Panniculectomy HPI: Candelaria is a 39 year old female here today to discuss excess abdominal skin and fat after massive weight loss. Weight loss achieved through diet, exercise, and Mounjaro. Date of bariatric surgery (more than 18 months): na Highest weight: 300 Current weight: 189 Weight loss of 100 lbs or more: yes Patients weight has been stable for 6 months. The patient does complain of recurrent rashes, intertrigo with dermatitis occuring on the opposed surface of the skin that has not responded to conventional treatment for a period of 3 months. Treatments tried: Cream: nystatin and Powder: nystatin The patient does have a history of infection. Panniculus causes interference with activities of daily living: Yes, showering, bathing and completing job tasks (lifting/moving boxes) Mixed feelings about self-esteem post-weight loss; Candelaria feels discouraged by excess skin Trouble with clothes fitting properly: Yes, cannot find clothing hat is flattering with excess skin History of abdominal hernia No . History of abdominal surgery: , cholecystectomy, and tubal ligation History of Heart Conditions: no History of Lung Conditions: no History of Diabetes: DM2 Recent A1C: 5.6 History of HTN: no History of Autoimmune Conditions: no Currently Taking Blood Thinners: no History of Blood Clots: no Current BMI: Body mass index is 28.41 kg/m?. REVIEW OF SYSTEMS REVIEW OF SYSTEMS PAIN ASSESSMENT: Negative for pain, history of chronic pain, or current treatment for a chronic pain condition. GENERAL: No weight loss, malaise or fevers RESPIRATORY: Negative for cough, hemoptysis, wheezing, COPD, dyspnea or shortness of breath CARDIOVASCULAR: Negative for chest pain, leg swelling, hypertension, CHF or palpitations SKIN: Negative for lesions, rash, and itching Objective: Ht 174 cm (5' 8.5") Wt 86 kg (189 lb 9.5 oz) LMP 05/25/2024 (Exact Date) BMI 28.41 kg/m? PAST MEDICAL HISTORY Diagnosis Date Abnormal Pap smear of cervix ascus cannot rule out high grade Diabetes mellitus type 2 in obese Gastroesophageal reflux disease without esophagitis Globus sensation Migraine headache Obesity PAST SURGICAL HISTORY Procedure Laterality Date SECTION HX 03/24/2013 CHOLECYSTECTOMY HX INSERTION OF IUD 2017 Mirena IUD removed 10/20/2020 KYLEENA IUD 10/20/2020 LYSIS OF ADHESIONS 07/04/2023 NEXPLANON INSERTION 05/10/2013 OSTECTOMY CALCANEUS SPUR W/WO PLNTAR FASCIAL RLS Left Dr. Jimenez REPAIR OF NASAL SEPTUM SALPINGECTOMY Bilateral 07/04/2023 Laparoscopic B/L Salpingectomy at [facility]-Dr. Condon Current Outpatient Medications Medication Sig Dispense Refill amoxicillin-clavulanate potassium (AUGMENTIN) 875-125 mg per tablet Take 1 tablet by mouth two times a day for 5 days. 10 tablet 0 fluconazole (DIFLUCAN) 150 mg tablet Take 1 tablet by mouth as directed. May repeat in 3 days if symptomatic 2 tablet 0 nystatin (MYCOSTATIN) powder Apply 1 application to affected area two times a day as needed (for abdominal fold/groin excoriation/yeast). 15 g 5 tirzepatide (MOUNJARO) 12.5 mg/0.5 mL pen injector Inject 12.5 mg subcutaneously one time a week. 2 mL 2 nystatin (MYCOSTATIN) cream Apply to affected area two times a day for 14 days. 30 g 0 omeprazole (PRILOSEC) 40 mg capsule Take 1 capsule by mouth once daily. 30 capsule 2 atomoxetine (STRATTERA) 40 mg capsule Take 2 capsules by mouth once daily. It's ok if you want to split this up and take one capsule twice per day instead 180 capsule 0 colestipol (COLESTID) 1 gram tablet Take 1 tablet by mouth once daily. For Diarrhea Post Gall Bladder Removal 90 tablet 1 jypkulsxywVLBJR-ybgeel-l idocaine (BMX 1:1:1) 1:1:1 liqd Take 5 mL by mouth every 4 hours as needed. Swish and spit 400 mL 0 EPINEPHrine (EPIPEN) 0.3 mg/0.3 mL auto-injector Use for allergic reaction 2 Each 1 levonorgestrel (KYLEENA) 17.5 mcg/24 hrs (5 yrs) 19.5 mg IUD 1 Each by INTRAUTERINE route one time only. flash glucose sensor (FREESTYLE EMILIA 14 DAY SENSOR) kit Apply and use as directed. Dx: Uncontrolled type 2 diabetes without insulin. 1 Kit 3 flash glucose scanning reader (FREESTYLE EMILIA 3 READER) 1 Each once daily. 1 Each 5 Lancets lancets Test blood sugar(s)2 times daily. Dx: uncontrolled type 2 DM 100 Each 11 insulin needles, DISPOSABLE, (BD INSULIN PEN NEEDLE UF) 31 gauge x 5/16" use once daily as directed 100 Each 1 blood sugar diagnostic (BLOOD GLUCOSE TEST) test strip Test blood sugar(s) 2 times d (more content not included)... Normal [facility] CN Office Visit (FAMPWS ) -------- CANDELARIA GRANT ([id number]) 1985 F Date Time Provider Department 12/03/24 8:40 AM MOOK MCGUIRE [facility] During your visit today, we recorded the following information about you: Pulse Blood pressure Weight 82/minute 142/90 87.6 kg Mook Mcguire APRN.GUM COOK 12/03/2024 9:22 AM Signed This is a 39 year old female who presents today with: 3 month follow up August assessment and plan: ASSESSMENT/PLAN 1. Type 2 diabetes mellitus with other specified complication, with long-term current use of insulin (HCC) (E11.69) - Managed with tirzepatide 12.5 mg weekly, continue same dose - Last HbA1c checked in October; ordered repeat HbA1c. - No current signs or symptoms of hypoglycemia or hyperglycemia. - Not taking metformin due to adverse effects. - Advised to monitor dietary intake, specifically reducing sugars and carbohydrates to prevent "sugar dump" and exacerbation of gastrointestinal symptoms. - Scheduled follow-up in 3 months. 2. Gastroesophageal reflux disease without esophagitis (K21.9) - Ongoing gastrointestinal symptoms despite holding tirzepatide for 7 days. - Currently taking pantoprazole; not taking sucralfate as someone told her not to take it - Order for pantoprazole was bid and she's only taking once, encouraged full 3 months of bid PPI -schedule follow up with zulma Garvin APRN GI, if needed HISTORY OF PRESENT ILLNESS: Cold Symptoms: - Candelaria Grant has had cold symptoms for 2 weeks. - Progressed to sinus pressure and chest congestion on Friday. - Productive cough with unknown sputum color. - Rhinorrhea with yellowish discharge; occasional clear discharge. - Noted oily yellowish nasal discharge when leaning forward. - Denies fevers and myalgias. - Fiance is also experiencing similar symptoms. Ear Pain: - Candelaria reports ear pain. - Recent exposure to powder coat paint at work, causing eye irritation. Diabetes Mellitus: - Recent fluctuations in Candelaria's blood glucose levels, ranging from 60s to 200s. - Recent yeast infection and "yeasty crap" in the umbilicus. - Recent urgent care visit for UTI symptoms; negative for glucose in urine but + for marcelo - Last A1c was 5.6%, due for recheck GERD: - Prescribed omeprazole but Candelaria has not been taking it consistently. - Denies recent GERD symptoms. PAST MEDICAL HISTORY: PAST MEDICAL HISTORY Diagnosis Date Abnormal Pap smear of cervix ascus cannot rule out high grade Diabetes mellitus type 2 in obese Gastroesophageal reflux disease without esophagitis Globus sensation Migraine headache Obesity PAST SURGICAL HISTORY Procedure Laterality Date SECTION HX 03/24/2013 CHOLECYSTECTOMY HX INSERTION OF IUD 2016 Mirena IUD removed 10/20/2020 KYLEENA IUD 10/20/2020 LYSIS OF ADHESIONS 07/04/2023 NEXPLANON INSERTION 05/10/2013 OSTECTOMY CALCANEUS SPUR W/WO PLNTAR FASCIAL RLS Left Dr. Jimenez REPAIR OF NASAL SEPTUM SALPINGECTOMY Bilateral 07/04/2023 Laparoscopic B/L Salpingectomy at [facility]-Dr. Condon ALLERGIES Macadamia Nut Oil and Meloxicam MEDICATIONS Current Outpatient Medications Medication Sig tirzepatide (MOUNJARO) 12.5 mg/0.5 mL pen injector Inject 12.5 mg subcutaneously one time a week. nystatin (MYCOSTATIN) cream Apply to affected area two times a day for 14 days. omeprazole (PRILOSEC) 40 mg capsule Take 1 capsule by mouth once daily. atomoxetine (STRATTERA) 40 mg capsule Take 2 capsules by mouth once daily. It's ok if you want to split this up and take one capsule twice per day instead colestipol (COLESTID) 1 gram tablet Take 1 tablet by mouth once daily. For Diarrhea Post Gall Bladder Removal oshmcqrayhFZRWJ-vjcrvz-w idocaine (BMX 1:1:1) 1:1:1 liqd Take 5 mL by mouth every 4 hours as needed. Swish and spit EPINEPHrine (EPIPEN) 0.3 mg/0.3 mL auto-injector Use for allergic reaction levonorgestrel (KYLEENA) 17.5 mcg/24 hrs (5 yrs) 19.5 mg IUD 1 Each by INTRAUTERINE route one time only. flash glucose sensor (FREESTYLE EMILIA 14 DAY SENSOR) kit Apply and use as directed. Dx: Uncontrolled type 2 diabetes without insulin. flash glucose scanning reader (FREESTYLE EMILIA 3 READER) 1 Each once daily. Lancets lancets Test blood sugar(s)2 times daily. Dx: uncontrolled type 2 DM insulin needles, DISPOSABLE, (BD INSULIN PEN NEEDLE UF) 31 gauge x 5/16" use once daily as directed blood sugar diagnostic (BLOOD GLUCOSE TEST) test strip Test blood sugar(s) 2 times daily. Dx: uncontrolled type 2 DM amoxicillin-clavulanate potassium (AUGMENTIN) 875-125 mg per tablet Take 1 tablet by mouth two times a day for 5 days. fluconazole (DIFLUCAN) 150 mg tablet Take 1 tablet by mouth as directed. May repeat in 3 days if symptomatic nystatin (MYCOSTATIN) powder Apply 1 application to affected area two times a day as needed (for abdominal fold/groin (more content not included)... Normal [facility] BACTERIAL VAGINOSIS NAATon 0 11-09-2024 Lactobacillus crispatus+gasseri+javi senii + Gardnerella vaginalis + Atopobium vaginae rRNA FAUSTINA+probe Ql (Vag fld) Not detected Normal Not detected [facility] Comment on above: Order Comment: Speci men Type: SWABOrdering Facility: [facility] Address: [address] [place] [address] Performed By: #### C VTV, BVAMP ####[facility] LABCLIA [id number] [place] [address] [place] Bacteria Ur Culton 5 Bacteria identified Cx Nom (U) ORGANISM ID: 1 10,000 -<50,000 CFU/ml Normal urogenital zamzam Normal [facility] Comment on above: Performed By: #### 6 30-4 ####[facility] LABCLIA [id number] [place] [address] [place] MARCELO/TRICHOMONAS NAATon 0 8-26-2025 C. glabrata RNA FAUSTINA+probe Ql (Vag fld) Not detected Normal Not detected [facility] Comment on above: Order Comment: Speci men Type: SWABOrdering Facility: [facility] Address: [address] [place] [address] Performed By: #### C VTV, BVAMP ####[facility] LABCLIA [id number] [address] [place] Marcelo sp DNA FAUSTINA+probe Ql (Vag fld) Detected Abnormal Not detected [facility] Comment on above: Order Comment: Speci men Type: SWABOrdering Facility: [facility] Address: [address] [place] [address] Result Comment: The Marcelo species group target includes C. albicans, C. tropicalis, C. parapsilosis, and C. dubliniensis. Performed By: #### C VTV, BVAMP ####[facility] LABCLIA [id number] [address] OF [facility] T. vaginalis DNA FAUSTINA+probe Ql (Unsp spec) Not detected Normal Not detected [facility] Comment on above: Order Comment: Speci men Type: SWABOrdering Facility: [facility] Address: [address] [place] [address] Performed By: #### C VTV, BVAMP ####[facility] LABCLIA [id number] [address] [place] CNOVon 11-09-2024 CNOV Office Visit (WOUCA) -------- CANDELARIA GRANT ([id number]) 1985 F Date Time Provider Department 11/09/24 5:30 PM CATRACHO WAN During your visit today, we recorded the following information about you: Temperature Pulse Respiration Blood pressure 97.6 degrees 68/minute 16/minute 132/80 Weight 88.5 kg Catracho Wan APRN.GUM COOK 11/09/2024 7:03 PM Signed [facility] Subjective Candelaria Grant is a 39 year old female presenting with thick, white, clumpy vaginal discharge x 1 week. Associated symptoms include left sided flank pain, urinary urgency, abdominal pain, vaginal itching, and white belly button discharge. Pertinent negatives include no hematuria, fever, chills, fatigue, no pelvic pain, and difficulty urinating. Patient presents with: Vaginal Problem: ? yeast infection x 1 day, discharge from bellybutton x 1 week Vaginal Problem This is a new problem. The current episode started in the past 7 days. The problem occurs constantly. The problem has been unchanged. Associated symptoms include abdominal pain (RUQ and RLQ), nausea (x1 episode) and vomiting. Pertinent negatives include no chest pain, chills, fatigue or fever. She has tried nothing for the symptoms. Review of Systems Constitutional: Negative for chills, fatigue and fever. Cardiovascular: Negative for chest pain. Gastrointestinal: Positive for abdominal distention, abdominal pain (RUQ and RLQ), nausea (x1 episode) and vomiting. Negative for constipation and diarrhea. Genitourinary: Positive for flank pain (Left side), urgency, vaginal discharge and vaginal pain (10/10 when urinating). Negative for decreased urine volume, difficulty urinating, dysuria, enuresis, frequency, hematuria, pelvic pain and vaginal bleeding. Vaginal itching Objective BP 132/80 Pulse 68 Temp 36.4 ?C (97.6 ?F) Resp 16 Wt 88.5 kg (195 lb 1.7 oz) LMP 05/25/2024 (Exact Date) SpO2 100% BMI 28.81 kg/m? Physical Exam Vitals and nursing note reviewed. Constitutional: General: She is awake. She is not in acute distress. Appearance: Normal appearance. She is not ill-appearing or toxic-appearing. HENT: Head: Normocephalic. Cardiovascular: Rate and Rhythm: Normal rate and regular rhythm. Heart sounds: Normal heart sounds, S1 normal and S2 normal. Pulmonary: Effort: Pulmonary effort is normal. Breath sounds: Normal breath sounds and air entry. Abdominal: General: Abdomen is flat. Bowel sounds are normal. There is no distension. Palpations: Abdomen is soft. There is no mass. Tenderness: There is abdominal tenderness in the left upper quadrant and left lower quadrant. There is left CVA tenderness. There is no right CVA tenderness, guarding or rebound. Hernia: No hernia is present. Genitourinary: Comments: Patient self swabbed Neurological: Mental Status: She is alert and oriented to person, place, and time. Psychiatric: Mood and Affect: Mood normal. {ASSESSMENT/PLAN: 1. Burning with urination - ICD9: 788.1, ICD10: R30.0 (primary diagnosis) acute - Send urine for culture - Patient education for prevention given - UA DIP, URINE (POC) URINE POC GLUCOSE UA (POCT) Negative 11/09/2024 BILIRUBIN UA (POCT) Small 11/09/2024 KETONE UA (POCT) Negative 11/09/2024 SPECIFIC GRAVITY UA (POCT) 1.025 11/09/2024 HEMOGLOBIN/BLOOD UA (POCT) Negative 11/09/2024 PH UA (POCT) 6.0 11/09/2024 PROTEIN UA (POCT) 30 11/09/2024 UROBILINOGEN UA (POCT) 1.0 11/09/2024 NITRITE UA (POCT) Negative 11/09/2024 LEUKOCYTES UA (POCT) Negative 11/09/2024 COLOR UA (POCT) Dark yellow 11/09/2024 CLARITY UA (POCT) Clear 11/09/2024 - BACTERIAL CULTURE, URINE 2. Vaginal itching - ICD9: 698.1, ICD10: N89.8 - MARCELO/TRICHOMONAS NAAT - BACTERIAL VAGINOSIS NAAT 3. Acute left flank pain - ICD9: 789.09, 338.19, ICD10: R10.9 - Work up with ultrasounds ordered - US KIDNEY/BLADDER Ultrasound is set up at [place] 10 AM. If patient has any significant findings that would require an ER visit please send to the emergency room. At this time patient is not in significant amount of pain at the time. So if she does have a kidney stone that is not causing significant issues she can follow-up with primary care. Disposition The patient was discharged. Discussed medication dosage, usage, goals of therapy, and side effects. Return to [facility], call primary care provider, or go to the emergency department for problems, worsening, increased or new symptoms, etc. Red flag symptoms discussed with the patient and when to go to ER. Patient verbalized understanding to plan of care. Milton Ramirez BEHAVIOR THERAPIST student TEACHING PROVIDER (Physician/PA/MUCK BOSS) NOTE OF PERSONAL INVOLVEMENT IN CARE: I have personally seen and examined the patient and performed the medical decision-making components. I have reviewed the Advanced Practice Registered Nurse (MUCK BOSS) Student' (more content not included)... Normal [facility] UA DIP, URINE (POC)on 2024 BILIRUBIN UA (POCT) Small Abnormal Negative [facility] CLARITY UA (POCT) Clear [facility] COLOR UA (POCT) Dark yellow [facility] GLUCOSE UA (POCT) Negative Negative mg/dL [facility] Hemoglobin Ql (U) Negative Negative [facility] Interpretation and review of laboratory results Abnormal [facility] KETONE UA (POCT) Negative Negative mg/dL [facility] LEUKOCYTES UA (POCT) [facility] NITRITE UA (POCT) Negative Negative [facility] PH UA (POCT) 6.0 4.5 - 8.0 [facility] Protein Ql (U) 30 mg/dL Abnormal Negative [facility] SPECIFIC GRAVITY UA (POCT) 1.025 1.005 - 1.030 [facility] UROBILINOGEN UA (POCT) 1.0 Normal E.U./dL [facility] Location:[address], [place], [place], [address] [place] [address] POINT OF CARE [facility] CNOVon 10-22-2024 CNOV Office Visit (FAMPWS ) -------- CANDELARIA GRANT ([id number]) 1985 F Date Time Provider Department 10/22/24 12:20 PM MOOK MCGUIRE FAMPWS During your visit today, we recorded the following information about you: Pulse Respiration Blood pressure Weight 77/minute 12/minute 146/66 86.2 kg Mook Mcguire APRN.GUM COOK 10/22/2024 1:38 PM Signed This is a 39 year old female who presents today with: Candelaria Maximo Grant is a 39-year-old female with a history of ADHD, GERD, and obesity, presenting requesting to be put back on adipex HISTORY OF PRESENT ILLNESS: Weight Management: - Recent weight increase to 196 lbs, followed by a decrease -Patient feels she is eating everything and gaining weight, but later said she has no appetite and GI upset often - BMI is 28- she does fluctuate significantly but has done well overall on weight loss journey - Currently on a high dose of tirzepatide. - has been less active and not working out recently, stating fiances work schedule has made them fall off track - denies doing any type of diet GERD: - Exacerbation of GERD symptoms, including nausea and burning pain in epigastric area - Symptoms occur randomly, often at work. - Denies recent follow-up with GI specialist, just the EGD she had in March - Currently taking pantoprazole BID - Avoids eating late at night and remains elevated after meals ADHD: - Currently taking Strattera 40 mg once daily; has not increased to 80 mg as prescribed. - Reports persistent difficulties with focus and memory, denies any other side effects (fatigue and stomach issues have been chronic, not new since starting meds) Edema: - Reports swelling in the leg, particularly at work, and mostly LLE - Swelling is not pitting and resolves after elevation. - hx of torn meniscus LLE, No history of surgery; previously underwent physical therapy. - Recent increase in leg discomfort due to frequent ladder use at work. - doesn't feel xray necessary as it will only show bone structures and not meniscus/ligaments Fatigue: - Reports feeling exhausted, attributing it to lack of sleep and caring for a new puppy. - Denies getting adequate sleep. - took nyquil last night and extra tired today Most Recent 10/24/21 - 10/22/24 05/06/24 17:37 05/25/24 17:56 07/06/24 13:08 07/20/24 08:27 08/13/24 07:13 08/27/24 09:02 10/22/24 12:20 Weight 190 lb (86.2 kg) 10/22/24 12:20 196 lb 3.4 oz (89 kg) 194 lb 0.1 oz (88 kg) 187 lb 6.3 oz (85 kg) 182 lb 12.8 oz (82.9 kg) 186 lb (84.4 kg) 187 lb 3.2 oz (84.9 kg) 190 lb (86.2 kg) Elevated BP without diagnosis of HTN Most Recent 10/24/21 - 10/22/24 05/06/24 17:37 05/25/24 17:56 07/06/24 13:08 07/20/24 08:27 08/13/24 07:13 08/27/24 09:02 10/22/24 12:20 BP 146/66 10/22/24 12:20 159/96 155/96 136/87 115/76 136/86 138/78 146/66 PAST MEDICAL HISTORY: PAST MEDICAL HISTORY Diagnosis Date Abnormal Pap smear of cervix ascus cannot rule out high grade Diabetes mellitus type 2 in obese Gastroesophageal reflux disease without esophagitis Globus sensation Migraine headache Obesity PAST SURGICAL HISTORY Procedure Laterality Date SECTION HX 03/24/2013 CHOLECYSTECTOMY HX INSERTION OF IUD 2017 Mirena IUD removed 10/20/2020 KYLEENA IUD 10/20/2020 LYSIS OF ADHESIONS 07/04/2023 NEXPLANON INSERTION 05/10/2013 OSTECTOMY CALCANEUS SPUR W/WO PLNTAR FASCIAL RLS Left Dr. Jimenez REPAIR OF NASAL SEPTUM SALPINGECTOMY Bilateral 07/04/2023 Laparoscopic B/L Salpingectomy at [facility]-Dr. Condon ALLERGIES Macadamia Nut Oil and Meloxicam MEDICATIONS Current Outpatient Medications Medication Sig colestipol (COLESTID) 1 gram tablet Take 1 tablet by mouth once daily. For Diarrhea Post Gall Bladder Removal tirzepatide (MOUNJARO) 12.5 mg/0.5 mL pen injector Inject 12.5 mg subcutaneously one time a week. Patient should start on September 26, 2024. fkzqthoenpQVGUE-vumguc-b idocaine (BMX 1:1:1) 1:1:1 liqd Take 5 mL by mouth every 4 hours as needed. Swish and spit EPINEPHrine (EPIPEN) 0.3 mg/0.3 mL auto-injector Use for allergic reaction levonorgestrel (KYLEENA) 17.5 mcg/24 hrs (5 yrs) 19.5 mg IUD 1 Each by INTRAUTERINE route one time only. flash glucose sensor (FREESTYLE EMILIA 14 DAY SENSOR) kit Apply and use as directed. Dx: Uncontrolled type 2 diabetes without insulin. flash glucose scanning reader (FREESTYLE EMILIA 3 READER) 1 Each once daily. Lancets lancets Test blood sugar(s)2 times daily. Dx: uncontrolled type 2 DM insulin needles, DISPOSABLE, (BD INSULIN PEN NEEDLE UF) 31 gauge x 5/16" use once daily as directed blood sugar diagnostic (BLOOD GLUCOSE TEST) test strip Test blood sugar(s) 2 times daily. Dx: uncontrolled type 2 DM omeprazole (PRILOSEC) 40 mg capsule Take 1 capsule by mouth once daily. atomoxetine (STRATTERA) 40 mg capsule Take 2 capsules by mouth once daily. It's ok if you want to split thi (more content not included)... Normal [facility] ALBUMIN/CREATININE RATIO, UR INEon 08-27-2024 Albumin DL <= 20 mg/L (U) [Mass/Vol] 93.1 mg/L [facility] Albumin/Creatinine (U) [Mass ratio] 74 mg/g High NINF - 30 mg/g [facility] Comment on above: Adult Male and Femal e Nephrotic Criteria: <30 mg/g is considered normal to mildly increased 30-300 mg/g is considered moderately increased >300 mg/g is considered severely increased KDIGO. (2013). KDIGO 2012 Clinical Practice Guideline for the Evaluation and Management of Chronic Kidney Disease. Official Journal of the International Society of Nephrology, 3(1), 1-150. Creatinine (U) [Mass/Vol] 125.7 mg/dL 20.0 - 300.0 mg/dL [facility] Interpretation and review of laboratory results Abnormal [facility] Albumin DL <= 20 mg/L (U) [Mass/Vol] 93.1 mg/L Normal [facility] Comment on above: Order Comment: Speci men Type: URINE SPECIMENOrdering Facility: [facility] Address: [address] [place] [address] [place] [address] Performed By: #### U ACR ####[facility] LABCLIA [id number] [place] [address] [place] Albumin/Creatinine (U) [Mass ratio] 74 mg/g High <30 [facility] Comment on above: Order Comment: Speci men Type: URINE SPECIMENOrdering Facility: [facility] Address: [address] [place] [address] Result Comment: Adul t Male and Female Nephrotic Criteria: <30 mg/g is considered normal to mildly increased 30-300 mg/g is considered moderately increased >300 mg/g is considered severely increased KDIGO. (2013). KDIGO 2012 Clinical Practice Guideline for the Evaluation and Management of Chronic Kidney Disease. Official Journal of the International Society of Nephrology, 3(1), 1-150. Performed By: #### U ACR ####[facility] LABCLIA [id number] [place] [address] [place] Creatinine (U) [Mass/Vol] 125.7 mg/dL Normal 20.0-300.0 [facility] Comment on above: Order Comment: Speci men Type: URINE SPECIMENOrdering Facility: [facility] Address: [address] [place] [address] Performed By: #### U ACR ####[facility] LABCLIA [id number] [place] [address] [place] CBC W Auto Differential pane l (Bld)on 08-27-2024 Basophils (Bld) [#/Vol] 0.07 10*3/uL [facility] Basophils/100 WBC (Bld) 0.8 % [facility] Differential cell count method Nom (Bld) Auto [facility] Eosinophils (Bld) [#/Vol] 0.19 10*3/uL [facility] Eosinophils/100 WBC (Bld) 2.2 % [facility] Erythrocyte distribution width (RBC) [Ratio] 12.6 % 11.5 - 15.0 % [facility] Hematocrit (Bld) [Volume fraction] 41.5 % 36.0 - 46.0 % [facility] Hemoglobin (Bld) [Mass/Vol] 13.7 g/dL 11.5 - 15.5 g/dL [facility] Immature granulocytes (Bld) [#/Vol] [facility] Immature granulocytes/100 WBC (Bld) 0.2 % [facility] Lymphocytes (Bld) [#/Vol] 2.27 10*3/uL [facility] Lymphocytes/100 WBC (Bld) 26.5 % [facility] MCH (RBC) [Entitic mass] 29.3 pg 26.0 - 34.0 pg [facility] MCHC (RBC) [Mass/Vol] 33 g/dL 30.5 - 36.0 g/dL [facility] MCV (RBC) [Entitic vol] 88.9 fL 80.0 - 100.0 fL [facility] Monocytes (Bld) [#/Vol] 0.56 10*3/uL [facility] Monocytes/100 WBC (Bld) 6.5 % [facility] Neutrophils (Bld) [#/Vol] 5.47 10*3/uL [facility] Neutrophils/100 WBC (Bld) 63.8 % [facility] Nucleated RBC (Bld) [#/Vol] [facility] Nucleated RBC/100 WBC (Bld) [Ratio] 0 % /100 WBC [facility] Platelet mean volume (Bld) [Entitic vol] 10.2 fL 9.0 - 12.7 fL [facility] Platelets (Bld) [#/Vol] 315 10*3/uL [facility] RBC (Bld) [#/Vol] 4.67 10*6/uL 3.90 - 5.2 0 m/uL [facility] WBC (Bld) [#/Vol] 8.58 10*3/uL [facility] Basophils (Bld) [#/Vol] 0.07 10*3/uL Normal <0.11 [facility] Comment on above: Order Comment: Speci men Type: BLOOD SPECIMENOrdering Facility: [facility] Address: [address] [place] [address] Performed By: #### 5 7021-8 ####[facility] LABCLIA [id number] [address] [place] Basophils/100 WBC (Bld) 0.8 % Normal [facility] Comment on above: Order Comment: Speci men Type: BLOOD SPECIMENOrdering Facility: [facility] Address: [address] [place] [address] Performed By: #### 5 7021-8 ####[facility] LABCLIA [id number] [place] [address] [place] Differential cell count method Nom (Bld) Auto Normal [facility] Comment on above: Order Comment: Speci men Type: BLOOD SPECIMENOrdering Facility: [facility] Address: [address] [place] [address] Performed By: #### 5 7021-8 ####[facility] LABCLIA [id number] [place] [address] [place] Eosinophils (Bld) [#/Vol] 0.19 10*3/uL Normal <0.46 [facility] Comment on above: Order Comment: Speci men Type: BLOOD SPECIMENOrdering Facility: [facility] Address: [address] [place] [address] Performed By: #### 5 7021-8 ####[facility] LABCLIA [id number] [place] [address] [place] Eosinophils/100 WBC (Bld) 2.2 % Normal [facility] Comment on above: Order Comment: Speci men Type: BLOOD SPECIMENOrdering Facility: [facility] Address: [address] [place] [address] Performed By: #### 5 7021-8 ####[facility] LABCLIA [id number] [place] [address] [place] Erythrocyte distribution width (RBC) [Ratio] 12.6 % Normal 11.5-15.0 [facility] Comment on above: Order Comment: Speci men Type: BLOOD SPECIMENOrdering Facility: [facility] Address: [address] [place] [address] Performed By: #### 5 7021-8 ####[facility] LABCLIA [id number] [place] [address] [place] Hematocrit (Bld) [Volume fraction] 41.5 % Normal 36.0-46.0 [facility] Comment on above: Order Comment: Speci men Type: BLOOD SPECIMENOrdering Facility: [facility] Address: [address] [place] [address] Performed By: #### 5 7021-8 ####[facility] LABCLIA [id number] [place] [address] [place] Hemoglobin (Bld) [Mass/Vol] 13.7 g/dL Normal 11.5-15.5 [facility] Comment on above: Order Comment: Speci men Type: BLOOD SPECIMENOrdering Facility: [facility] Address: [address] [place] [address] Performed By: #### 5 7021-8 ####[facility] LABCLIA [id number] [place] [address] [place] Immature granulocytes (Bld) [#/Vol] 10*3/uL Normal <0.10 [facility] Comment on above: Order Comment: Speci men Type: BLOOD SPECIMENOrdering Facility: [facility] Address: [address] [place] [address] Performed By: #### 5 7021-8 ####[facility] LABCLIA [id number] [place] [address] [place] Immature granulocytes/100 WBC (Bld) 0.2 % Normal [facility] Comment on above: Order Comment: Speci men Type: BLOOD SPECIMENOrdering Facility: [facility] Address: [address] [place] [address] Performed By: #### 5 7021-8 ####[facility] LABCLIA [id number] [place] [address] [place] Lymphocytes (Bld) [#/Vol] 2.27 10*3/uL Normal 1.00-4.00 [facility] Comment on above: Order Comment: Speci men Type: BLOOD SPECIMENOrdering Facility: [facility] Address: [address] [place] [address] Performed By: #### 5 7021-8 ####[facility] LABCLIA [id number] [place] [address] [place] Lymphocytes/100 WBC (Bld) 26.5 % Normal [facility] Comment on above: Order Comment: Speci men Type: BLOOD SPECIMENOrdering Facility: [facility] Address: [address] [place] [address] Performed By: #### 5 7021-8 ####[facility] LABCLIA [id number] [place] [address] [place] MCH (RBC) [Entitic mass] 29.3 pg Normal 26.0-34.0 [facility] Comment on above: Order Comment: Speci men Type: BLOOD SPECIMENOrdering Facility: [facility] Address: [address] [place] [address] Performed By: #### 5 7021-8 ####[facility] LABCLIA [id number] [place] [address] [place] MCHC (RBC) [Mass/Vol] 33.0 g/dL Normal 30.5-36.0 [facility] Comment on above: Order Comment: Speci men Type: BLOOD SPECIMENOrdering Facility: [facility] Address: [address] [place] [address] Performed By: #### 5 7021-8 ####[facility] LABCLIA [id number] [place] [id number] [place] MCV (RBC) [Entitic vol] 88.9 fL Normal 80.0-100.0 [facility] Comment on above: Order Comment: Speci men Type: BLOOD SPECIMENOrdering Facility: [facility] Address: [address] [place] [address] Performed By: #### 5 7021-8 ####[facility] LABCLIA [id number] [facility] [address] [place] [address] [place] Monocytes (Bld) [#/Vol] 0.56 10*3/uL Normal <0.87 [facility] Comment on above: Order Comment: Speci men Type: BLOOD SPECIMENOrdering Facility: [facility] Address: [address] [place] [address] Performed By: #### 5 7021-8 ####[facility] LABCLIA [id number] [facility] [address], [facility] [place] Monocytes/100 WBC (Bld) 6.5 % Normal [facility] Comment on above: Order Comment: Speci men Type: BLOOD SPECIMENOrdering Facility: [facility] Address: [address] [place] [address] Performed By: #### 5 7021-8 ####[facility] LABCLIA [id number] [address], [place] [address] [place] Neutrophils (Bld) [#/Vol] 5.47 10*3/uL Normal 1.45-7.50 [facility] Comment on above: Order Comment: Speci men Type: BLOOD SPECIMENOrdering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 today for magic mouthwash, ordered by MARK Scott. Pharmacist states they are unable to compete this order-needs to go to a compounding pharmacy, or order alternative medication. WILLIAM Owen Rayanne, PA-C 08/13/2024 10:22 AM Signed Let patient know I sent it to [facility] pharmacy. Let her know that this is first time I had a pharmacy tell me they can't do the mix. HERMAN Lord Sherill A, LPN 08/13/2024 11:28 AM Signed Pt notified of Sulema's message with verbalized understanding. Pawan Cotter LPN Allergies As of Date: 08/13/2024 Noted Allergy Reaction MACADAMIA NUT OIL 04/08/2014 4 - Hives 7 - Swelling 12 - Shortness of Breath MELOXICAM 08/30/2015 5 - Intolerance Comments: Headache Date Reviewed: 08/13/2024 Reviewed by: Pawan Cotter LPN - Fully Assessed Reason for Visit: Pharmacy Call/Update [Other] Order(s):diphenhydrAMINE -maalox-lidocaine (BMX 1:1:1) 1:1:1 liqdTake 5 mL by mouth every 4 hours as needed. Swish and spitDisp: 400 mLRfl: 0 Prescriptions as of 08/13/2024 - naproxen (NAPROSYN) 500 mg tablet Take 1 tablet by mouth two times a day as needed (for pain/inflammation). Take with food. - cyclobenzaprine (FLEXERIL) 10 mg tablet Take 1 tablet by mouth at bedtime as needed for muscle spasm for up to 20 days. - cnxgacnxlzLFCCX-nsekjo-r idocaine (BMX 1:1:1) 1:1:1 liqd Take 5 mL by mouth every 4 hours as needed. Swish and spit - tirzepatide (MOUNJARO) 12.5 mg/0.5 mL pen injector Inject 12.5 mg subcutaneously one time a week. - tirzepatide (MOUNJARO) 12.5 mg/0.5 mL pen injector Inject 12.5 mg subcutaneously one time a week. - Phentermine HCl 37.5 mg capsule Take 1 capsule by mouth once daily for 90 days. BMI 30.57 - ofloxacin (FLOXIN) 0.3 % otic solution Use 5 Drops in both ears once daily. - colestipol (COLESTID) 1 gram tablet Take 1 tablet by mouth once daily. For Diarrhea Post Gall Bladder Removal - pantoprazole DR (PROTONIX) 40 mg tablet Take 1 tablet by mouth two times a day. Take on empty stomach, 1/2 hr before meal. - sucralfate (CARAFATE) 1 gram tablet Take 1 tablet by mouth before meals and at bedtime. - EPINEPHrine (EPIPEN) 0.3 mg/0.3 mL auto-injector Use for allergic reaction - metFORMIN ER (GLUCOPHAGE XR) 500 mg 24 hr tablet Take 1 tablet by mouth two times a day. - levonorgestrel (KYLEENA) 17.5 mcg/24 hrs (5 yrs) 19.5 mg IUD 1 Each by INTRAUTERINE route one time only. - flash glucose sensor (FREESTYLE EMILIA 14 DAY SENSOR) kit Apply and use as directed. Dx: Uncontrolled type 2 diabetes without insulin. - flash glucose scanning reader (FREESTYLE EMILIA 3 READER) 1 Each once daily. - Phenyleph-Shark Czg-Hfqr-Hth (HEMORRHOIDAL) 0.25-3-12 % crea by RECTAL route twice daily. - Lancets lancets Test blood sugar(s)2 times daily. Dx: uncontrolled type 2 DM - insulin needles, DISPOSABLE, (BD INSULIN PEN NEEDLE UF) 31 gauge x 5/16" use once daily as directed - blood sugar diagnostic (BLOOD GLUCOSE TEST) test strip Test blood sugar(s) 2 times daily. Dx: uncontrolled type 2 DM Problem List As Of Date 08/13/2024 Noted Resolved History of gestational diabetes [Z86.32] 02/15/2014 Depressed mood [R45.89] 02/15/2014 Headache [R51] 02/15/2014 10/17/2015 Impaired glucose metabolism [R73.09] 02/15/2014 10/17/2015 Family history of ovarian cancer [Z80.41] 06/13/2014 BMI 38.0-38.9,adult [Z68.38] 06/28/2014 Migraine headache [G43.909] 09/21/2014 Functional diarrhea [K59.1] 09/19/2015 Uncontrolled type 2 diabetes mellitus without c*10/17/2015 Rectal bleeding [K62.5] 05/14/2017 LUQ abdominal pain [R10.12] 05/14/2017 Altered bowel habits [R19.4] 05/14/2017 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 Swish and spit Medications Discontinued During This Encounter Prescriptions - zdiejebcraGWYLG-chkoes-z idocaine (BMX 1:1:1) 1:1:1 liqd (Discontinued) Take 5 mL by mouth every 4 hours as needed. Swish and spit Encounter Status:Closed by PAWAN COTTER on 08/13/24 Normal [facility] CBC W Auto Differential pane l (Bld)on 07-20-2024 Basophils (Bld) [#/Vol] 0.08 10*3/uL Normal <0.11 [facility] Comment on above: Order Comment: Speci men Type: BLOOD SPECIMENOrdering Facility: [facility] Address: [address] [place] [address] Performed By: #### 5 7021-8 ####[facility] LABCLIA [id number] [address], [place] [address] [place] Basophils/100 WBC (Bld) 0.5 % Normal [facility] Comment on above: Order Comment: Speci men Type: BLOOD SPECIMENOrdering Facility: [facility] Address: [address] [place] [address] Performed By: #### 5 7021-8 ####[facility] LABCLIA [id number] [address], [place] [address] [place] Differential cell count method Nom (Bld) Auto Normal [facility] Comment on above: Order Comment: Speci men Type: BLOOD SPECIMENOrdering Facility: [facility] Address: [address] [place] [address] Performed By: #### 5 7021-8 ####[facility] LABCLIA [id number] [address], [place] [address] [place] Eosinophils (Bld) [#/Vol] 0.11 10*3/uL Normal <0.46 [facility] Comment on above: Order Comment: Speci men Type: BLOOD SPECIMENOrdering Facility: [facility] Address: [address] [place] [address] Performed By: #### 5 7021-8 ####[facility] LABCLIA [id number] [address], [facility] [place] Eosinophils/100 WBC (Bld) 0.6 % Normal [facility] Comment on above: Order Comment: Speci men Type: BLOOD SPECIMENOrdering Facility: [facility] Address: [address] [place] [address] Performed By: #### 5 7021-8 ####[facility] LABCLIA [id number] [address], [facility] [place] Erythrocyte distribution width (RBC) [Ratio] 12.0 % Normal 11.5-15.0 [facility] Comment on above: Order Comment: Speci men Type: BLOOD SPECIMENOrdering Facility: [facility] Address: [address] [place] [address] Performed By: #### 5 7021-8 ####[facility] LABIA [id number] [place] [address] [place] Hematocrit (Bld) [Volume fraction] 40.0 % Normal 36.0-46.0 [facility] Comment on above: Order Comment: Speci men Type: BLOOD SPECIMENOrdering Facility: [facility] Address: [address] [place] [address] Performed By: #### 5 7021-8 ####[facility] LABIA [id number] [place] [address] [place] Hemoglobin (Bld) [Mass/Vol] 13.5 g/dL Normal 11.5-15.5 [facility] Comment on above: Order Comment: Speci men Type: BLOOD SPECIMENOrdering Facility: [facility] Address: [address] [place] [address] Performed By: #### 5 7021-8 ####[facility] LABIA [id number] [place] [address] [place] Immature granulocytes (Bld) [#/Vol] 0.05 10*3/uL Normal <0.10 [facility] Comment on above: Order Comment: Speci men Type: BLOOD SPECIMENOrdering Facility: [facility] Address: [address] [place] [address] Performed By: #### 5 7021-8 ####[facility] LABIA [id number] [place] [address] [place] Immature granulocytes/100 WBC (Bld) 0.3 % Normal [facility] Comment on above: Order Comment: Speci men Type: BLOOD SPECIMENOrdering Facility: [facility] Address: [address] [place] [address] Performed By: #### 5 7021-8 ####[facility] LABCLIA [id number] [place] [address] [place] Lymphocytes (Bld) [#/Vol] 1.94 10*3/uL Normal 1.00-4.00 [facility] Comment on above: Order Comment: Speci men Type: BLOOD SPECIMENOrdering Facility: [facility] Address: [address] [place] [address] Performed By: #### 5 7021-8 ####[facility] LABCLIA [id number] [place] [address] [place] Lymphocytes/100 WBC (Bld) 11.3 % Normal [facility] Comment on above: Order Comment: Speci men Type: BLOOD SPECIMENOrdering Facility: [facility] Address: [address] [place] [address] Performed By: #### 5 7021-8 ####[facility] LABCLIA [id number] [place] [address] [place] MCH (RBC) [Entitic mass] 29.9 pg Normal 26.0-34.0 [facility] Comment on above: Order Comment: Speci men Type: BLOOD SPECIMENOrdering Facility: [facility] Address: [address] [place] [address] Performed By: #### 5 7021-8 ####[facility] LABCLIA [id number] [place] [id number] [place] MCHC (RBC) [Mass/Vol] 33.8 g/dL Normal 30.5-36.0 [facility] Comment on above: Order Comment: Speci men Type: BLOOD SPECIMENOrdering Facility: [facility] Address: [address] [place] [address] Performed By: #### 5 7021-8 ####[facility] LABCLIA [id number] [address], [facility] [place] MCV (RBC) [Entitic vol] 88.5 fL Normal 80.0-100.0 [facility] Comment on above: Order Comment: Speci men Type: BLOOD SPECIMENOrdering Facility: [facility] Address: [address] [place] [address] Performed By: #### 5 7021-8 ####[facility] LABCLIA [id number] [address], [place] [address] [place] Monocytes (Bld) [#/Vol] 1.12 10*3/uL High <0.87 [facility] Comment on above: Order Comment: Speci men Type: BLOOD SPECIMENOrdering Facility: [facility] Address: [address] [place] [address] Performed By: #### 5 7021-8 ####[facility] LABCLIA [id number] [address], [place] [address] [place] Monocytes/100 WBC (Bld) 6.5 % Normal [facility] Comment on above: Order Comment: Speci men Type: BLOOD SPECIMENOrdering Facility: [facility] Address: [address] [place] [address] Performed By: #### 5 7021-8 ####[facility] LABCLIA [id number] [address], [place] [address] [place] Neutrophils (Bld) [#/Vol] 13.86 10*3/uL High 1.45-7.50 [facility] Comment on above: Order Comment: Speci men Type: BLOOD SPECIMENOrdering Facility: [facility] Address: [address] [place] [address] Performed By: #### 5 7021-8 ####[facility] LABCLIA [id number] [address], [facility] [place] Neutrophils/100 WBC (Bld) 80.8 % Normal [facility] Comment on above: Order Comment: Speci men Type: BLOOD SPECIMENOrdering Facility: [facility] Address: [address] [place], [place] [address] Performed By: #### 5 7021-8 ####[facility] LABCLIA [id number] [address] [address] [place] Nucleated RBC (Bld) [#/Vol] 10*3/uL Normal <0.01 [facility] Comment on above: Order Comment: Speci men Type: BLOOD SPECIMENOrdering Facility: [facility] Address: [address] [place] [address] Performed By: #### 5 7021-8 ####[facility] LABIA [id number] [place] [address] [place] Nucleated RBC/100 WBC (Bld) [Ratio] 0.0 /100 WBC Normal [facility] Comment on above: Order Comment: Speci men Type: BLOOD SPECIMENOrdering Facility: [facility] Address: [address] [place] [address] Performed By: #### 5 7021-8 ####[facility] LABCLIA [id number] [place] [id number] [place] Platelet mean volume (Bld) [Entitic vol] 10.2 fL Normal 9.0-12.7 [facility] Comment on above: Order Comment: Speci men Type: BLOOD SPECIMENOrdering Facility: [facility] Address: [address] [place] [address] Performed By: #### 5 7021-8 ####[facility] LABCLIA [id number] [address] [address] [place] Platelets (Bld) [#/Vol] 251 10*3/uL Normal 150-400 [facility] Comment on above: Order Comment: Speci men Type: BLOOD SPECIMENOrdering Facility: [facility] Address: [address] [place], [place] [id number] Performed By: #### 5 7021-8 ####[facility] LABCLIA [id number] [place] [id number] [place] RBC (Bld) [#/Vol] 4.52 10*6/uL Normal 3.90-5.20 [facility] Comment on above: Order Comment: Speci men Type: BLOOD SPECIMENOrdering Facility: [facility] Address: [address] [place] [address] Performed By: #### 5 7021-8 ####[facility] LABIA [id number] [place] [id number] [place] WBC (Bld) [#/Vol] 17.16 10*3/uL High 3.70-11.00 [facility] Comment on above: Order Comment: Speci men Type: BLOOD SPECIMENOrdering Facility: [facility] Address: [address] [place] [address] Performed By: #### 5 7021-8 ####[facility] [id number] [place] [address] [place] CNOVon 07-20-2024 CNOV Office Visit (DAKOTAPWS ) -------- CANDELARIA GRANT ([id number]) 1985 F Date Time Provider Department 07/20/24 8:20 AM THERESA WHEELER FAMPWS During your visit today, we recorded the following information about you: Temperature Pulse Respiration Blood pressure 98.1 degrees 89/minute 16/minute 115/76 Weight 82.9 kg Theresa Wheeler PA-C 07/20/2024 8:51 AM Signed Begin taking the Medrol Dosepak (steroid) as prescribed. Because you have diabetes, monitor your blood sugar closely while on this medication. Call us if your blood sugar rises above 250-300. Do not take the amoxicillin that was provided at the ER. Today, complete the lab tests ordered: a mono (Edyta-Carpenter) test, CBC, and liver function tests (CMP), as well as a strep test. Have the ultrasound of your spleen and liver completed today as scheduled. Watch for any red flag symptoms such as an inability to swallow even your own saliva, drooling, a high fever, or severe abdominal pain (which could indicate an abscess or spleen issues). If these occur, go to the emergency room immediately. Use the work note provided and plan to return on the to assess how you are feeling. If your symptoms have not improved by day 5 (and if all the tests for mono and strep are negative), contact our office to discuss possibly starting amoxicillin. Theresa Wheeler PA-C 07/20/2024 9:36 AM Signed Recording using tenfarms software for draft documentation of the visit was discussed with the patient/authorized office machines sales representative; all questions welcomed and answered. Patient/authorized office machines sales representative agreed to proceed 07/20/2024 Sore Throat: - Onset: Friday. - Evaluated at [facility] yesterday morning; diagnosed with throat infection. strep test was not done. - Amoxicillin prescribed but not yet started. - Severe odynophagia, difficulty swallowing liquids,but still able and able to control secetions.. - Fever up to 101 degreeF last night; took ibuprofen earlier today. - Mild cough, nasal congestion. - Denies SOB, wheezing, nausea, or emesis. - Reports significant fatigue, slept all day. - Denies history of mononucleosis. Abdominal Pain: - Diffuse abdominal pain, particularly in the LUQ. No vomiting, diarrhea. Pain is not constant. Diabetes: - Does not check blood sugars daily; stopped when A1c was "good." - Last A1c 5.5% in December. Current Outpatient Medications on File Prior to Visit Medication Sig tirzepatide (MOUNJARO) 12.5 mg/0.5 mL pen injector Inject 12.5 mg subcutaneously one time a week. tirzepatide (MOUNJARO) 12.5 mg/0.5 mL pen injector Inject 12.5 mg subcutaneously one time a week. Phentermine HCl 37.5 mg capsule Take 1 capsule by mouth once daily for 90 days. BMI 30.57 colestipol (COLESTID) 1 gram tablet Take 1 tablet by mouth once daily. For Diarrhea Post Gall Bladder Removal pantoprazole DR (PROTONIX) 40 mg tablet Take 1 tablet by mouth two times a day. Take on empty stomach, 1/2 hr before meal. sucralfate (CARAFATE) 1 gram tablet Take 1 tablet by mouth before meals and at bedtime. EPINEPHrine (EPIPEN) 0.3 mg/0.3 mL auto-injector Use for allergic reaction levonorgestrel (KYLEENA) 17.5 mcg/24 hrs (5 yrs) 19.5 mg IUD 1 Each by INTRAUTERINE route one time only. flash glucose sensor (HealthQxSTYLE EMILIA 14 DAY SENSOR) kit Apply and use as directed. Dx: Uncontrolled type 2 diabetes without insulin. flash glucose scanning reader (FREESTYLE EMILIA 3 READER) 1 Each once daily. Lancets lancets Test blood sugar(s)2 times daily. Dx: uncontrolled type 2 DM insulin needles, DISPOSABLE, (BD INSULIN PEN NEEDLE UF) 31 gauge x 5/16" use once daily as directed blood sugar diagnostic (BLOOD GLUCOSE TEST) test strip Test blood sugar(s) 2 times daily. Dx: uncontrolled type 2 DM sulfamethoxazole-trimeth oprim (BACTRIM DS) 800-160 mg per tablet Take 1 tablet by mouth two times a day for 14 days. (Patient not taking: Reported on 07/20/2024) ofloxacin (FLOXIN) 0.3 % otic solution Use 5 Drops in both ears once daily. (Patient not taking: Reported on 07/20/2024) metFORMIN ER (GLUCOPHAGE XR) 500 mg 24 hr tablet Take 1 tablet by mouth two times a day. Phenyleph-Shark Xpz-Wuqb-Hex (HEMORRHOIDAL) 0.25-3-12 % crea by RECTAL route twice daily. No current facility-administered medications on file prior to visit. PAST MEDICAL HISTORY Diagnosis Date Abnormal Pap smear of cervix ascus cannot rule out high grade Diabetes mellitus type 2 in obese Gastroesophageal reflux disease without esophagitis Globus sensation Migraine headache Obesity Allergies: Macadamia Nut Oil Hives, Swelling, Shortness of Breath Meloxicam Intolerance Comment:Headache Constitutional: (+) fever, (+) fatigue Ears/Nose/Mouth/Throat: (+) sore throat, (+) congestion-minimal, (+) cough-minimal Respiratory: (-) shortness of breath Gastrointestinal: (+) stomach upset, ( (more content not included)... Normal [facility] Comprehensive metabolic 2000 panelon 07-20-2024 Albumin [Mass/Vol] 4.4 g/dL Normal 3.9-4.9 [facility] Comment on above: Order Comment: Speci men Type: BLOOD SPECIMENOrdering Facility: [facility] Address: [address] [place] [address] Performed By: #### 2 4323-8 ####[facility] LABCLIA [id number] [address] [address] [place] ALP [Catalytic activity/Vol] 76 U/L Normal 34-123 [facility] Comment on above: Order Comment: Speci men Type: BLOOD SPECIMENOrdering Facility: [facility] Address: [address] [place] [address] Performed By: #### 2 4323-8 ####[facility] LABCLIA [id number] [place] [id number] [place] ALT [Catalytic activity/Vol] 12 U/L Normal 7-38 [facility] Comment on above: Order Comment: Speci men Type: BLOOD SPECIMENOrdering Facility: [facility] Address: [address] [place] [address] Performed By: #### 2 4323-8 ####[facility] LABCLIA [id number] [facility] [address] [address] [place] Anion gap [Moles/Vol] 13 mmol/L Normal 8-15 [facility] Comment on above: Order Comment: Speci men Type: BLOOD SPECIMENOrdering Facility: [facility] Address: [address] [place] [address] Performed By: #### 2 4323-8 ####[facility] LABCLIA [id number] [facility] [address] [address] [place] AST [Catalytic activity/Vol] 15 U/L Normal 13-35 [facility] Comment on above: Order Comment: Speci men Type: BLOOD SPECIMENOrdering Facility: [facility] Address: [address] [place] [address] Performed By: #### 2 4323-8 ####[facility] LABCLIA [id number] [address] [address] [place] Bilirubin [Mass/Vol] 0.3 mg/dL Normal 0.2-1.3 [facility] Comment on above: Order Comment: Speci men Type: BLOOD SPECIMENOrdering Facility: [facility] Address: [address] [place] [address] Performed By: #### 2 4323-8 ####[facility] LABCLIA [id number] [place] [address] [place] Calcium [Mass/Vol] 9.6 mg/dL Normal 8.5-10.2 [facility] Comment on above: Order Comment: Speci men Type: BLOOD SPECIMENOrdering Facility: [facility] Address: [address] [place] [address] Performed By: #### 2 4323-8 ####[facility] LABCLIA [id number] [place] [address] [place] Chloride [Moles/Vol] 99 mmol/L Normal 98-107 [facility] Comment on above: Order Comment: Speci men Type: BLOOD SPECIMENOrdering Facility: [facility] Address: [address] [place] [address] Performed By: #### 2 4323-8 ####[facility] LABCLIA [id number] [place] [id number] [place] CO2 [Moles/Vol] 24 mmol/L Normal 22-30 [facility] Comment on above: Order Comment: Speci men Type: BLOOD SPECIMENOrdering Facility: [facility] Address: [address] [place], [place] [id number] Performed By: #### 2 4323-8 ####[facility] LABIA [id number] [address] [address] [place] Creatinine [Mass/Vol] 0.80 mg/dL Normal 0.58-0.96 [facility] Comment on above: Order Comment: Jorgito sims Type: BLOOD SPECIMENOrdering Facility: [facility] Address: [address] [place] [address] Performed By: #### 2 4323-8 ####[facility] LABIA [id number] [place] [address] [place] [facility] Creatinine and Glomerular filtration rate.predicted panel (S/P/Bld) 96 mL/min/1.73m??? Normal >=60 [facility] Comment on above: Order Comment: Jorgito sims Type: BLOOD SPECIMENOrdering Facility: [facility] Address: [address] [place] [address] Result Comment: Rivka mated Glomerular Filtration Rate (eGFR) is calculated using the 2020 CKD-EPI creatinine equation. This equation utilizes serum creatinine, sex, and age as parameters. The creatinine assay has traceable calibration to isotope dilution-mass spectrometry. Refer to KDIGO guidelines for clinical interpretation. In patients with unstable renal function, e.g. those with acute kidney injury, the eGFR may not accurately reflect actual GFR. Performed By: #### 2 4323-8 ####[facility] LABIA [id number] [place] [address] [place] Glucose [Mass/Vol] 185 mg/dL High 74-99 [facility] Comment on above: Order Comment: Jorgito sims Type: BLOOD SPECIMENOrdering Facility: [facility] Address: [address] [place] [address] Result Comment: The [place] Diabetes Association (ADA) provides guidance for cutoff values for fasting glucose and random glucose. The ADA defines fasting as no caloric intake for at least 8 hours. Fasting plasma glucose results between 100 to 125 mg/dL indicate increased risk for diabetes (prediabetes). Fasting plasma glucose results greater than or equal to 126 mg/dL meet the criteria for diagnosis of diabetes. In the absence of unequivocal hyperglycemia, results should be confirmed by repeat testing. In a patient with classic symptoms of hyperglycemia or hyperglycemic crisis, random plasma glucose results greater than or equal to 200 mg/dL meet the criteria for diagnosis of diabetes. Reference: Standards of Medical Care in Diabetes 2016, [place] [employer]. Diabetes Care. 2016.39(Suppl 1). Performed By: #### 2 4323-8 ####[facility] LABCLIA [id number] [place] [address] [place] Potassium [Moles/Vol] 3.5 mmol/L Low 3.7-5.1 [facility] Comment on above: Order Comment: Speci men Type: BLOOD SPECIMENOrdering Facility: [facility] Address: [address] [place] [address] Performed By: #### 2 4323-8 ####[facility] LABIA [id number] [place] [address] [place] Protein [Mass/Vol] 7.7 g/dL Normal 6.3-8.0 [facility] Comment on above: Order Comment: Speci men Type: BLOOD SPECIMENOrdering Facility: [facility] Address: [address] [place] [address] Performed By: #### 2 4323-8 ####[facility] LABIA [id number] [address] [address] [place] Sodium [Moles/Vol] 136 mmol/L Normal 136-144 [facility] Comment on above: Order Comment: Speci men Type: BLOOD SPECIMENOrdering Facility: [facility] Address: [address] [place] [id number] Performed By: #### 2 4323-8 ####[facility] LABCLIA [id number] [place] [address] [place] Urea nitrogen [Mass/Vol] 8 mg/dL Normal 7-21 [facility] Comment on above: Order Comment: Speci men Type: BLOOD SPECIMENOrdering Facility: [facility] Address: [address] [place] [address] Performed By: #### 2 4323-8 ####[facility] LABCLIA [id number] [address] [place] [address] [place] EDYTA CARPENTER PANELon 025 EBV NA AB, QUAL Positive Abnormal Negative [facility] Comment on above: Order Comment: Speci men Type: BLOOD SPECIMENOrdering Facility: [facility] Address: [address] [place] [address] Performed By: #### E BVPNL ####[facility] LABCLIA [id number] [address] [place] [address] [place] EBV VCA IGG, QUAL Positive Abnormal Negative [facility] Comment on above: Order Comment: Speci men Type: BLOOD SPECIMENOrdering Facility: [facility] Address: [address] [place] [address] Performed By: #### E BVPNL ####[facility] LABCLIA [id number] [address] [place] [address] [place] EBV VCA IGM, QUAL Negative Normal Negative [facility] Comment on above: Order Comment: Speci men Type: BLOOD SPECIMENOrdering Facility: [facility] Address: [address] [place] [address] Performed By: #### E BVPNL ####[facility] LABCLIA [id number] [address] [address] [place] INTERPRETATION (EBVPNL) Past Infection. EBV panel interpretation is a general guide that is meant to capture most, but not all, of the possible clinical scenarios. Non-specific reactivities are not uncommon especially with equivocal results. Should the overall interpretation not be consistent with the clinical picture, please contact the medical and health services manager of the test for assistance. Normal [facility] Comment on above: Order Comment: Speci men Type: BLOOD SPECIMENOrdering Facility: [facility] Address: [address] [place] [address] Performed By: #### E BVPNL ####[facility] LABCLIA [id number] [address] [place] No Panel Informationon 07-20 IMPRESSION: Sonographically unremarkable spleen. Increased liver echogenicity which may represent steatosis . Prior cholecystectomy. Environmental Attorney: VINEET Transcribe Date/Time: Jul 20 2024 11:04A Dictated by : LIBORIO GUADARRAMA MD This examination was interpreted and the report reviewed and electronically signed by: LIBORIO GUADARRAMA MD on Jul 20 2024 11:10AM EST [facility] No Panel InformationOrdered By: Ccf Provider on 07-20-2024 [facility] STREP A MOLECULAR (POC)on Procedural Control Valid [facility] Strep A (POCT) Negative Negative [facility] US ABD RIGHT UPPER QUADRANTo n 07-20-2024 US ABD RIGHT UPPER QUADRANT * * *Final Report* * * DATE OF EXAM: Jul 20 2024 11:01AM LDU 1032 - US ABD RIGHT UPPER QUADRANT / PROCEDURE REASON: multiple diagnoses * * * * Physician Interpretation * * * * EXAMINATION: RIGHT UPPER QUADRANT ULTRASOUND CLINICAL HISTORY: Recent sore throat and left upper quadrant pain TECHNIQUE: Sonography of the right upper quadrant was performed. Images were obtained and stored in a permanent archive. MQ: URUQ_2 COMPARISON: CT abdomen pelvis dated 10/23/2023 RESULT: Pancreas: Normal sonographic appearance. Portions obscured: tail Liver: Echotexture: Normal, homogeneous. Echogenicity: Increased Surface contour: Smooth Lesions: None. Biliary: No intrahepatic biliary duct dilation. CBD: 0.7 cm at the hilum. Gallbladder: Prior cholecystectomy Right Kidney: No hydronephrosis. Ascites: None. Spleen: The craniocaudal length of the spleen is 10.6 cm, normal. There are no splenic lesions. IMPRESSION: Sonographically unremarkable spleen. Increased liver echogenicity which may represent steatosis . Prior cholecystectomy. Environmental Attorney: VINEET Transcribe Date/Time: Jul 20 2024 11:04A Dictated by : LIBORIO GUADARRAMA MD This examination was interpreted and the report reviewed and electronically signed by: LIBORIO GUADARRAMA MD on Jul 20 2024 11:10AM EST [id number] Normal [facility] US ABD SPLEEN - NBon 025 * * *Final Report* * * DATE OF EXAM: Jul 20 2024 11:01AM LDU 1232 - US [facility] SPLEEN -NB / PROCEDURE REASON: multiple diagnoses * * * * Physician Interpretation * * * * EXAMINATION: RIGHT UPPER QUADRANT ULTRASOUND CLINICAL HISTORY: Recent sore throat and left upper quadrant pain TECHNIQUE: Sonography of the right upper quadrant was performed. Images were obtained and stored in a permanent archive. MQ: URUQ_2 COMPARISON: CT abdomen pelvis dated 10/23/2023 RESULT: Pancreas: Normal sonographic appearance. Portions obscured: tail Liver: Echotexture: Normal, homogeneous. Echogenicity: Increased Surface contour: Smooth Lesions: None. Biliary: No intrahepatic biliary duct dilation. CBD: 0.7 cm at the hilum. Gallbladder: Prior cholecystectomy Right Kidney: No hydronephrosis. Ascites: None. Spleen: The craniocaudal length of the spleen is 10.6 cm, normal. There are no splenic lesions. [place] [facility] Provider, [facility] - 07/20/2024 * * *Final Report* * * DATE OF EXAM: Jul 20 2024 11:01AM LDU 1232 - [facility] SPLEEN -NB / PROCEDURE REASON: multiple diagnoses * * * * Physician Interpretation * * * * EXAMINATION: RIGHT UPPER QUADRANT ULTRASOUND CLINICAL HISTORY: Recent sore throat and left upper quadrant pain TECHNIQUE: Sonography of the right upper quadrant was performed. Images were obtained and stored in a permanent archive. MQ: URUQ_2 COMPARISON: CT abdomen pelvis dated 10/23/2023 RESULT: Pancreas: Normal sonographic appearance. Portions obscured: tail Liver: Echotexture: Normal, homogeneous. Echogenicity: Increased Surface contour: Smooth Lesions: None. Biliary: No intrahepatic biliary duct dilation. CBD: 0.7 cm at the hilum. Gallbladder: Prior cholecystectomy Right Kidney: No hydronephrosis. Ascites: None. Spleen: The craniocaudal length of the spleen is 10.6 cm, normal. There are no splenic lesions. IMPRESSION IMPRESSION: Sonographically unremarkable spleen. Increased liver echogenicity which may represent steatosis . Prior cholecystectomy. Environmental Attorney: VINEET Transcribe Date/Time: Jul 20 2024 11:04A Dictated by : LIBORIO GUADARRAMA MD This examination was interpreted and the report reviewed and electronically signed by: LIBORIO GUADARRAMA MD on Jul 20 2024 11:10AM EST [facility] Radiology Study observation (narrative) [facility] US ABD SPLEEN -NBon 07-21-19 25 US ABD SPLEEN -NB * * *Final Report* * * DATE OF EXAM: Jul 20 2024 11:01AM LDU 1232 - US ABD SPLEEN -NB / PROCEDURE REASON: multiple diagnoses * * * * Physician Interpretation * * * * EXAMINATION: RIGHT UPPER QUADRANT ULTRASOUND CLINICAL HISTORY: Recent sore throat and left upper quadrant pain TECHNIQUE: Sonography of the right upper quadrant was performed. Images were obtained and stored in a permanent archive. MQ: URUQ_2 COMPARISON: CT abdomen pelvis dated 10/23/2023 RESULT: Pancreas: Normal sonographic appearance. Portions obscured: tail Liver: Echotexture: Normal, homogeneous. Echogenicity: Increased Surface contour: Smooth Lesions: None. Biliary: No intrahepatic biliary duct dilation. CBD: 0.7 cm at the hilum. Gallbladder: Prior cholecystectomy Right Kidney: No hydronephrosis. Ascites: None. Spleen: The craniocaudal length of the spleen is 10.6 cm, normal. There are no splenic lesions. IMPRESSION: Sonographically unremarkable spleen. Increased liver echogenicity which may represent steatosis . Prior cholecystectomy. Environmental Attorney: VINEET Transcribe Date/Time: Jul 20 2024 11:04A Dictated by : LIBORIO GUADARRAMA MD This examination was interpreted and the report reviewed and electronically signed by: LIBORIO GUADARRAMA MD on Jul 20 2024 11:10AM EST [id number] Normal [facility] US Abdomen RUQon 07-20-2024 * * *Final Report* * * DATE OF EXAM: Jul 20 2024 11:01AM LDU 1032 - US ABD RIGHT UPPER QUADRANT / PROCEDURE REASON: multiple diagnoses * * * * Physician Interpretation * * * * EXAMINATION: RIGHT UPPER QUADRANT ULTRASOUND CLINICAL HISTORY: Recent sore throat and left upper quadrant pain TECHNIQUE: Sonography of the right upper quadrant was performed. Images were obtained and stored in a permanent archive. MQ: URUQ_2 COMPARISON: CT abdomen pelvis dated 10/23/2023 RESULT: Pancreas: Normal sonographic appearance. Portions obscured: tail Liver: Echotexture: Normal, homogeneous. Echogenicity: Increased Surface contour: Smooth Lesions: None. Biliary: No intrahepatic biliary duct dilation. CBD: 0.7 cm at the hilum. Gallbladder: Prior cholecystectomy Right Kidney: No hydronephrosis. Ascites: None. Spleen: The craniocaudal length of the spleen is 10.6 cm, normal. There are no splenic lesions. [place] [facility] Provider, [facility] - 07/20/2024 * * *Final Report* * * DATE OF EXAM: Jul 20 2024 11:01AM LDU 1032 - US ABD RIGHT UPPER QUADRANT / PROCEDURE REASON: multiple diagnoses * * * * Physician Interpretation * * * * EXAMINATION: RIGHT UPPER QUADRANT ULTRASOUND CLINICAL HISTORY: Recent sore throat and left upper quadrant pain TECHNIQUE: Sonography of the right upper quadrant was performed. Images were obtained and stored in a permanent archive. MQ: URUQ_2 COMPARISON: CT abdomen pelvis dated 10/23/2023 RESULT: Pancreas: Normal sonographic appearance. Portions obscured: tail Liver: Echotexture: Normal, homogeneous. Echogenicity: Increased Surface contour: Smooth Lesions: None. Biliary: No intrahepatic biliary duct dilation. CBD: 0.7 cm at the hilum. Gallbladder: Prior cholecystectomy Right Kidney: No hydronephrosis. Ascites: None. Spleen: The craniocaudal length of the spleen is 10.6 cm, normal. There are no splenic lesions. IMPRESSION IMPRESSION: Sonographically unremarkable spleen. Increased liver echogenicity which may represent steatosis . Prior cholecystectomy. Environmental Attorney: PSCB Transcribe Date/Time: Jul 20 2024 11:04A Dictated by : LIBORIO GUADARRAMA MD This examination was interpreted and the report reviewed and electronically signed by: LIBORIO GUADARRAMA MD on Jul 20 2024 11:10AM EST [facility] Radiology Study observation (narrative) [facility] Bacteria Ur Culton 5 Bacteria identified Cx Nom (U) ORGANISM ID: 1 10,000 -<50,000 CFU/ml Normal urogenital zamzam Normal [facility] Comment on above: Performed By: #### 6 30-4 ####[facility] LABJASPAL [id number] [address] [place] [facility] CNOVon 07-06-2024 CNOV Office Visit (DAKOTAPWS ) -------- CANDELARIA GRANT Maximo ([id number]) 1985 F Date Time Provider Department 07/06/24 1:00 PM BREE MONTALVO During your visit today, we recorded the following information about you: Pulse Blood pressure Weight 85/minute 136/87 85 kg Bree Montalvo APRN.[facility] 07/06/2024 1:19 PM Signed Chief Complaint Patient presents with: UTI: X 4 days HPI Candelaria Marsh Juanita is a 39 year old female who presents here today for Above Complaints.. Patient presents for UTI symptoms and flank pain x4 days. Reports urinary frequency ad pain with urination, low back and abdominal pain, fever. Has been taking tylenol and ibuprofen. Past medical history, appointments, medications, allergies reviewed. Previous Medical History PAST MEDICAL HISTORY Diagnosis Date Abnormal Pap smear of cervix ascus cannot rule out high grade Diabetes mellitus type 2 in obese Gastroesophageal reflux disease without esophagitis Globus sensation Migraine headache Obesity Previous Surgical History PAST SURGICAL HISTORY Procedure Laterality Date SECTION HX 03/24/2013 CHOLECYSTECTOMY HX INSERTION OF IUD 2017 Mirena IUD removed 10/20/2020 KYLEENA IUD 10/20/2020 LYSIS OF ADHESIONS 07/04/2023 NEXPLANON INSERTION 05/10/2013 OSTECTOMY CALCANEUS SPUR W/WO PLNTAR FASCIAL RLS Left Dr. Jimenez REPAIR OF NASAL SEPTUM SALPINGECTOMY Bilateral 07/04/2023 Laparoscopic B/L Salpingectomy at [facility]-Dr. Condon Family History FAMILY HISTORY Problem Relation Age of Onset No Known Problems Mother Cancer Father pancreatic and renal. Anesthesia Problems Father slow emergence, PONV No Known Problems Brother No Known Problems Son Breast Cancer Maternal Aunt Cervical Cancer Paternal Aunt x2- and one cousin No Known Problems Maternal Grandmother Diabetes Maternal Grandfather Diabetes Paternal Grandfather other (lymphomia) Other maternal cousin other (leukemia) Other cousin Patient Allergies ALLERGIES Allergen Reactions Macadamia Nut Oil Hives, Swelling, Shortness of Breath Meloxicam Intolerance Headache Current Medications Current Outpatient Medications on File Prior to Visit Medication Sig tirzepatide (MOUNJARO) 12.5 mg/0.5 mL pen injector Inject 12.5 mg subcutaneously one time a week. tirzepatide (MOUNJARO) 12.5 mg/0.5 mL pen injector Inject 12.5 mg subcutaneously one time a week. Phentermine HCl 37.5 mg capsule Take 1 capsule by mouth once daily for 90 days. BMI 30.57 ofloxacin (FLOXIN) 0.3 % otic solution Use 5 Drops in both ears once daily. colestipol (COLESTID) 1 gram tablet Take 1 tablet by mouth once daily. For Diarrhea Post Gall Bladder Removal pantoprazole DR (PROTONIX) 40 mg tablet Take 1 tablet by mouth two times a day. Take on empty stomach, 1/2 hr before meal. sucralfate (CARAFATE) 1 gram tablet Take 1 tablet by mouth before meals and at bedtime. EPINEPHrine (EPIPEN) 0.3 mg/0.3 mL auto-injector Use for allergic reaction metFORMIN ER (GLUCOPHAGE XR) 500 mg 24 hr tablet Take 1 tablet by mouth two times a day. levonorgestrel (KYLEENA) 17.5 mcg/24 hrs (5 yrs) 19.5 mg IUD 1 Each by INTRAUTERINE route one time only. flash glucose sensor (FREESTYLE EMILIA 14 DAY SENSOR) kit Apply and use as directed. Dx: Uncontrolled type 2 diabetes without insulin. flash glucose scanning reader (FREESTYLE EMILIA 3 READER) 1 Each once daily. Phenyleph-Shark Agq-Xskb-Ipl (HEMORRHOIDAL) 0.25-3-12 % crea by RECTAL route twice daily. Lancets lancets Test blood sugar(s)2 times daily. Dx: uncontrolled type 2 DM insulin needles, DISPOSABLE, (BD INSULIN PEN NEEDLE UF) 31 gauge x 5/16" use once daily as directed blood sugar diagnostic (BLOOD GLUCOSE TEST) test strip Test blood sugar(s) 2 times daily. Dx: uncontrolled type 2 DM No current facility-administered medications on file prior to visit. Social History Social History Tobacco Use Smoking status: Never Smokeless tobacco: Never Vaping Use Vaping status: Never Used Substance Use Topics Alcohol use: Yes Comment: Socially Drug use: Not Currently Types: Marijuana Review of Symptoms REVIEW OF SYSTEMS SEE HPI EXAM: BP 136/87 Pulse 85 Wt 85 kg (187 lb 6.3 oz) LMP 05/25/2024 (Exact Date) BMI 27.67 kg/m? General Appearance: Well appearing, alert, in no acute distress, well-hydrated, well nourished. Abdomen: Positive findings: tenderness moderate suprapubic, Right CVA tenderness with percussion. Health Maintenance List Depression Screening Never done Anxiety Screening Never done DTaP,Tdap,Td Vaccine(1 - Tdap) Never done Pneumococcal Vaccine(2 of 2 - PCV) due on 01/22/2017 Dilated Retinal Exam due on 03/17/2022 Urine Albumin:Creatinine Ratio due on 10/23/2023 Mammogram Screening Never done Diabetic Foot Exam due on 04/25/2024 LDL Cholesterol due on 06/01/2024 Influenza Vaccine(1) due (more content not included)... Normal [facility] UA DIP, URINE (POC)on 2024 BILIRUBIN UA (POCT) Negative Negative [facility] CLARITY UA (POCT) Clear [facility] COLOR UA (POCT) Yellow [facility] GLUCOSE UA (POCT) Negative Negative mg/dL [facility] Hemoglobin Ql (U) Moderate Abnormal Negative [facility] Interpretation and review of laboratory results Abnormal [facility] KETONE UA (POCT) Negative Negative mg/dL [facility] LEUKOCYTES UA (POCT) Small Abnormal Negative [facility] NITRITE UA (POCT) Negative Negative [facility] PH UA (POCT) 7 4.5 - 8.0 [facility] Protein Ql (U) Negative Negative mg/dL [facility] SPECIFIC GRAVITY UA (POCT) 1.01 1.005 - 1.030 [facility] UROBILINOGEN UA (POCT) 0.2 Normal E.U./dL [facility] Location:[address], [place], [place], [id number] [place] [address] POINT OF CARE [facility] CNOVon 05-25-2024 CNOV Office Visit (UCWSTR ) -------- CANDELARIA GRANT ([id number]) 1985 F Date Time Provider Department 05/25/24 6:00 PM CATRACHO WAN RUST During your visit today, we recorded the following information about you: Temperature Pulse Respiration Blood pressure 97.4 degrees 89/minute 20/minute 155/96 Weight Last Period 88 kg 05/25/24 Catracho Wan, KATRIN.GUM COOK 05/25/2024 6:10 PM Signed [facility] Subjective Candelaria Grant is a 39 year old female. Patient presents with: Cough: Chest congestion, nasal congestion, chest pain with deep breathing ad cough x 1 day Patient came in with complaints of head congestion cough. Patient says she has had it for a few weeks. Patient denies any shortness of breath or fever. The history is provided by the patient. No english language learner teacher was used. Cough Review of Systems Constitutional: Negative. HENT: Negative. Respiratory: Positive for cough. Objective BP 155/96 Pulse 89 Temp 36.3 ?C (97.4 ?F) Resp 20 Wt 88 kg (194 lb 0.1 oz) LMP 05/25/2024 (Exact Date) SpO2 100% BMI 28.65 kg/m? Physical Exam Constitutional: Appearance: Normal appearance. HENT: Right Ear: Tympanic membrane, ear canal and external ear normal. Left Ear: Tympanic membrane, ear canal and external ear normal. Mouth/Throat: Mouth: Mucous membranes are moist. Eyes: Pupils: Pupils are equal, round, and reactive to light. Cardiovascular: Rate and Rhythm: Normal rate and regular rhythm. Heart sounds: Normal heart sounds. Pulmonary: Effort: Pulmonary effort is normal. Breath sounds: Normal breath sounds. Neurological: Mental Status: She is alert. ASSESSMENT/PLAN: 1. Rhinosinusitis - ICD9: 473.9, ICD10: J32.9 - Will begin treatment with as per antibiotic as written, see orders - DOXYCYCLINE HYCLATE 100 MG TABLET - FLUCONAZOLE 150 MG TABLET Catracho Wan APRN.GUM COOK History and Record Review External record(s) reviewed: no prior records. Differential Diagnoses - sinus infection is more likely for the following reason(s): suggested by HANDP - pneumonia is less likely for the following reason(s): HANDP not suggestive Disposition The patient was discharged. Procedures Allergies As of Date: 05/25/2024 Noted Allergy Reaction MACADAMIA NUT OIL 04/08/2014 4 - Hives 7 - Swelling 12 - Shortness of Breath MELOXICAM 08/30/2015 5 - Intolerance Comments: Headache Date Reviewed: 05/25/2024 Reviewed by: Dawna Cristobal LPN - Fully Assessed Reason for Visit: Cough [28] Cmt: Chest congestion, nasal congestion, chest pain with deep breathing ad cough x 1 day Primary Visit Diagnosis:Rhinosinusitis [J32.9] Order(s):doxycycline (VIBRA-TABS) 100 mg tabletTake 1 tablet by mouth two times a day for 7 days.Disp: 14 tabletRfl: 0 fluconazole (DIFLUCAN) 150 mg tabletTake 1 tablet by mouth once daily for 1 day.Disp: 1 tabletRfl: 0 Prescriptions as of 05/25/2024 - doxycycline (VIBRA-TABS) 100 mg tablet Take 1 tablet by mouth two times a day for 7 days. - fluconazole (DIFLUCAN) 150 mg tablet Take 1 tablet by mouth once daily for 1 day. - ofloxacin (FLOXIN) 0.3 % otic solution Use 5 Drops in both ears once daily. - tirzepatide (MOUNJARO) 12.5 mg/0.5 mL pen injector Inject 12.5 mg subcutaneously one time a week. - colestipol (COLESTID) 1 gram tablet Take 1 tablet by mouth once daily. For Diarrhea Post Gall Bladder Removal - pantoprazole DR (PROTONIX) 40 mg tablet Take 1 tablet by mouth two times a day. Take on empty stomach, 1/2 hr before meal. - sucralfate (CARAFATE) 1 gram tablet Take 1 tablet by mouth before meals and at bedtime. - EPINEPHrine (EPIPEN) 0.3 mg/0.3 mL auto-injector Use for allergic reaction - metFORMIN ER (GLUCOPHAGE XR) 500 mg 24 hr tablet Take 1 tablet by mouth two times a day. - levonorgestrel (KYLEENA) 17.5 mcg/24 hrs (5 yrs) 19.5 mg IUD 1 Each by INTRAUTERINE route one time only. - flash glucose sensor (FREESTYLE EMILIA 14 DAY SENSOR) kit Apply and use as directed. Dx: Uncontrolled type 2 diabetes without insulin. - flash glucose scanning reader (FREESTYLE EMILIA 3 READER) 1 Each once daily. - Phenyleph-Shark Noj-Gwbe-Spw (HEMORRHOIDAL) 0.25-3-12 % crea by RECTAL route twice daily. - Lancets lancets Test blood sugar(s)2 times daily. Dx: uncontrolled type 2 DM - insulin needles, DISPOSABLE, (BD INSULIN PEN NEEDLE UF) 31 gauge x 5/16" use once daily as directed - blood sugar diagnostic (BLOOD GLUCOSE TEST) test strip Test blood sugar(s) 2 times daily. Dx: uncontrolled type 2 DM Problem List As Of Date 05/25/2024 Noted Resolved History of gestational diabetes [Z86.32] 02/15/2014 Depressed mood [R45.89] 02/15/2014 Headache [R51] 02/15/2014 10/17/2015 Impaired glucose metabolism [R73.09] 02/15/2014 10/17/2015 Family history of ovarian cancer [Z80.41] 06/13/2014 BMI 38.0-38.9,adult [Z68.38] 06/28/2014 Migraine h (more content not included)... Normal [facility] Abdomen/Pelvis without Conto n 05-09-2024 Abdomen/Pelvis without Cont [facility] Imaging Services [address] [place], [place] [id number] Abdomen/Pelvis without Cont MR#: [id number] Acct: [id number] Name: CANDELARIA GRANT Rep #: [id number] : 1985 F 39 From: Jhoan Leon PCP: Dr. Gigi Carrillo, DO Status: REG ER Study: Abdomen/Pelvis without Cont Date of Exam: 04/18 06/08 Exam# [id number] Ordering Dr: Anthony Manriquez DO PROCEDURE: CT abdomen pelvis without IV contrast REASON FOR EXAM: Right flank pain TECHNIQUE: Multiple contiguous axial images of the abdomen and pelvis were obtained without the administration of intravenous contrast. Two-dimensional coronal and sagittal reformatted images were reconstructed. Low-dose imaging technique was utilized. COMPARISON: 08/31/2023 FINDINGS: Lung bases are clear. Unenhanced liver, spleen, and adrenal glands are intact. Gallbladder is surgically absent. No significant biliary ductal dilation. No renal calculi or hydronephrosis. Urinary bladder is within normal limits. Uterus is present and contains an IUD. No bowel obstruction, focal bowel wall thickening or significant perienteric inflammation. Normal appendix. Trace pelvic free fluid, likely physiologic. No free air. No abdominal aortic aneurysm or suspicious adenopathy. Superficial soft tissues are intact. No acute osseous abnormality. CT/Abdomen/Pelvis without Cont IMPRESSION: No acute process. One or more dose reduction techniques were used (e.g., Automated exposure control, adjustment of the mA and/or kV according to patient size, use of iterative reconstruction technique). Reading Location: [facility] CC: Dr. Anthony Manriquez, DO; Dr. Gigi Carrillo, DO Environmental Attorney: Signed Normal [facility] CBC W/Diff, Automatedon 04-18 Absolute Lymph 2.86 X10 3/uL Normal 0.83-4.51 [facility] Comment on above: Performed By: #### L 700.6800, L100.0100, L500.4050 #### [facility] [address] [place], [address] Absolute Neut 6.8 X10 3/uL Normal 2.0-7.7 [facility] Comment on above: Performed By: #### L 700.6800, L100.0100, L500.4050 #### [facility] [address] [place], [address] Basophils/100 WBC (Bld) 0.9 % Normal 0-1 [facility] Comment on above: Performed By: #### L 700.6800, L100.0100, L500.4050 #### [facility] [address] [place], [address] Eosinophils/100 WBC (Bld) 10.5 % High 0-5 [facility] Comment on above: Performed By: #### L 700.6800, L100.0100, L500.4050 #### [facility] [address] [place], [address] Erythrocyte distribution width (RBC) [Ratio] 11.9 % Normal 11.6-14.6 [facility] Comment on above: Performed By: #### L 700.6800, L100.0100, L500.4050 #### [facility] [address] [place], [address] Hematocrit (Bld) [Volume fraction] 38.2 % Normal 37-47 [facility] Comment on above: Performed By: #### L 700.6800, L100.0100, L500.4050 #### [facility] [address] [place], [address] Hemoglobin (Bld) [Mass/Vol] 13.2 g/dL Normal 12.0-15.0 [facility] Comment on above: Performed By: #### L 700.6800, L100.0100, L500.4050 #### [facility] [address] [place], [address] IG% 0.300 Normal 0.0-0.9 [facility] Comment on above: Result Comment: IG% - Immature Granulocytes (promyelocytes, myelocytes and metamyelocytes) > 1% indicates that a LEFT SHIFT is Present. Performed By: #### L 700.6800, L100.0100, L500.4050 #### [facility] [address] [place], [address] Lymphocytes/100 WBC (Bld) 24.5 % Normal 19-41 [facility] Comment on above: Performed By: #### L 700.6800, L100.0100, L500.4050 #### [facility] [address] [place], [address] MCH (RBC) [Entitic mass] 30.2 pg Normal 27.0-32.0 [facility] Comment on above: Performed By: #### L 700.6800, L100.0100, L500.4050 #### [facility] [address] [place], [address] MCHC (RBC) [Mass/Vol] 34.6 g/dL Normal 32-36 [facility] Comment on above: Performed By: #### L 700.6800, L100.0100, L500.4050 #### [facility] [address] [place], [address] MCV (RBC) [Entitic vol] 87.4 fL Normal 81-99 [facility] Comment on above: Performed By: #### L 700.6800, L100.0100, L500.4050 #### [facility] [address] [place], [address] Monocytes/100 WBC (Bld) 5.7 % Normal 0-10 [facility] Comment on above: Performed By: #### L 700.6800, L100.0100, L500.4050 #### [facility] [address] [place], [address] Neutrophils/100 WBC (Bld) 58.1 % Normal 47-70 [facility] Comment on above: Performed By: #### L 700.6800, L100.0100, L500.4050 #### [facility] [address] [place], [address] Nucleated RBC (Bld) [#/Vol] 0 10*3/uL Normal 0-5 [facility] Comment on above: Performed By: #### L 700.6800, L100.0100, L500.4050 #### [facility] [address] [place], [address] Platelet mean volume (Bld) [Entitic vol] 9.7 fL Normal 6.2-12.0 [facility] Comment on above: Performed By: #### L 700.6800, L100.0100, L500.4050 #### [facility] [address] [place], [address] Platelets (Bld) [#/Vol] 269 10*3/uL Normal 150-450 [facility] Comment on above: Performed By: #### L 700.6800, L100.0100, L500.4050 #### [facility] [address] [place], [address] RBC (Bld) [#/Vol] 4.37 10*6/uL Normal 4.2-5.4 [facility] Comment on above: Performed By: #### L 700.6800, L100.0100, L500.4050 #### [facility] [address] [place], [address] RDW SD 38.3 fl Normal 35.1-43.9 [facility] Comment on above: Performed By: #### L 700.6800, L100.0100, L500.4050 #### [facility] [address] [place], [address] WBC (Bld) [#/Vol] 11.7 10*3/uL High 4.4-11.0 [facility] Comment on above: Performed By: #### L 700.6800, L100.0100, L500.4050 #### [facility] [address] [place], [address] Comprehensive Metabolic Prof ilon 05-09-2024 Albumin [Mass/Vol] 3.6 g/dL Normal 3.2-5.0 [facility] Comment on above: Performed By: #### L 700.6800, L100.0100, L500.4050 #### [facility] [address] [place], [address] Albumin/Globulin [Mass ratio] 0.9 {ratio} Normal 0.9-2.4 [facility] Comment on above: Performed By: #### L 700.6800, L100.0100, L500.4050 #### [facility] [address] [place], [address] ALK P 68 U/L Normal 45-117 [facility] Comment on above: Performed By: #### L 700.6800, L100.0100, L500.4050 #### [facility] [address] [place], [address] ALT [Catalytic activity/Vol] 17 U/L Normal 13-56 [facility] Comment on above: Performed By: #### L 700.6800, L100.0100, L500.4050 #### [facility] [address] [place], [address] AST [Catalytic activity/Vol] 12 U/L Low 15-37 [facility] Comment on above: Performed By: #### L 700.6800, L100.0100, L500.4050 #### [facility] [address] [place], [address] Bilirubin [Mass/Vol] 0.30 mg/dL Normal 0.20-1.00 [facility] Comment on above: Result Comment: For patients on eltrombopag therapy, use of Dimension [place] TBIL is not recommended. Performed By: #### L 700.6800, L100.0100, L500.4050 #### [facility] [address] [place], [address] BUN/CRE 8.3 RATIO Low 10-20 [facility] Comment on above: Performed By: #### L 700.6800, L100.0100, L500.4050 #### [facility] [address] [place], [address] CA,Total 8.4 mg/dL Low 8.5-10.1 [facility] Comment on above: Performed By: #### L 700.6800, L100.0100, L500.4050 #### [facility] [address] [place], [address] Chloride [Moles/Vol] 106 mmol/L Normal 98-107 [facility] Comment on above: Performed By: #### L 700.6800, L100.0100, L500.4050 #### [facility] [address] [place], [address] CO2 [Moles/Vol] 27.0 mmol/L Normal 21.0-32.0 [facility] Comment on above: Performed By: #### L 700.6800, L100.0100, L500.4050 #### [facility] [address] [place], [address] Creatinine [Mass/Vol] 0.72 mg/dL Normal 0.55-1.02 [facility] Comment on above: Result Comment: The validity of the calculated GFR GFRAA in patients over 70 years has not been determined. Clinical correlation is essential. Performed By: #### L 700.6800, L100.0100, L500.4050 #### [facility] [address] [place], [address] ECRCL 123.11 ml/min Normal [facility] Comment on above: Performed By: #### L 700.6800, L100.0100, L500.4050 #### [facility] [address] [place], [address] EST GFR - AA 115 mL/min Normal >60 [facility] Comment on above: Result Comment: Afri can Gibralt[place] GFR Calc Performed By: #### L 700.6800, L100.0100, L500.4050 #### [facility] [address] [place], [address] GAP 7 Normal 5-15 [facility] Comment on above: Performed By: #### L 700.6800, L100.0100, L500.4050 #### [facility] [address] [place], [address] GFR/1.73 sq M.predicted among non-blacks MDRD (S/P/Bld) [Vol rate/Area] 95 mL/min/{1.73_m2} Normal >60 [facility] Comment on above: Result Comment: Non- GFR Calc Performed By: #### L 700.6800, L100.0100, L500.4050 #### [facility] [address] [place], [address] Globulin (S) [Mass/Vol] 3.8 g/dL Normal 2.2-4.2 [facility] Comment on above: Performed By: #### L 700.6800, L100.0100, L500.4050 #### [facility] [address] [place], [address] Glucose [Mass/Vol] 117 mg/dL High 74-106 [facility] Comment on above: Result Comment: Fast ing Glucose result from 100 to 125 mg/dL suggests IMPAIRED HOMEOSTASIS per A.D.A. criteria. Performed By: #### L 700.6800, L100.0100, L500.4050 #### [facility] [address] [place], [address] Potassium [Moles/Vol] 2.8 mmol/L Low 3.5-5.1 [facility] Comment on above: Performed By: #### L 700.6800, L100.0100, L500.4050 #### [facility] [address] [place], [address] Sodium [Moles/Vol] 140 mmol/L Normal 136-145 [facility] Comment on above: Performed By: #### L 700.6800, L100.0100, L500.4050 #### [facility] [address] [place], [address] T PROT 7.4 g/dL Normal 6.4-8.2 [facility] Comment on above: Performed By: #### L 700.6800, L100.0100, L500.4050 #### [facility] [address] [place], [address] Urea nitrogen [Mass/Vol] 6 mg/dL Low 7-18 [facility] Comment on above: Performed By: #### L 700.6800, L100.0100, L500.4050 #### [facility] [address] [place], [address] Emergency Department Summary on 05-09-2024 Emergency Department Summary [facility] Medical Records Department [address] [place] [address] Emergency Department Summary 05/09/24 MR#: [id number] Acct: [id number] Name: CANDELARIA GRANT Rep #: [id number] : 1985 39 From: Anthony Manriquez DO PCP: Dr. Gigi Carrillo DO Status:DEP ER Location: ED HPI History of Present Illness Chief Complaint: Lower Extremity Injury Informant: patient Onset/Context/Timing Onset: Days (5) Context: Gradual Onset Timing: Continuous Quality: Aching, burning, and sharp at times. Location: Right flank, right lower abdomen, and right hip Worsened by: Movement Relieved by: Nothing Narrative Narrative: Patient presents with pain in her right area that has been getting worse over the past 5 days. Patient states she went to the urgent care and was told she had sciatica. Patient states she has been taking ibuprofen and muscle relaxants with no improvement. Patient states her pain is worse with any movement. Patient states nothing seems to help with it. Patient denies any radiation of the pain. Patient denies any paresthesias or weakness. Patient describes her pain as sharp, aching, and burning. Patient admits to some nausea but denies any vomiting. Patient denies any dysuria, hematuria, or frequency. The patient states that in the past she has had a CT scan and was told she had a stone in her appendix. [facility] Medical History Gastric reflux Leg cramps Migraine headache delivery delivered Cholecystectomy planned unexplained bruises Knee pain Diarrhea Severe headache H/O gastric ulcer Diabetes Home Medications ???Medication ???Instructions ???Recorded ???Last Taken ???Type colestipol 1 gram tablet 1 gm PO DAILY 07/31/17 02/17/20 Hi story metformin 500 mg tablet 500 mg PO DAILY 07/31/17 02/17/20 History tirzepatide 10 mg/0.5 mL 10 mg subcut QWEEK 06/05/23 Unknow n History subcutaneous pen injector (Mounjaro) cyclobenzaprine 10 mg tablet 10 mg PO TID PRN Muscle Spasm #10 08/31/23 Unknown Rx TABLETS hydrocodone-acetaminophe n 5-325mg 1 tab PO Q6H PRN PRN Pain 3 days 08/31/23 Unknown Rx 5mg-325mg #10 TABLETS naproxen 500 mg tablet 500 mg PO BID PRN #20 tabs 5 Unknown Rx Allergy/AdvReac Type Severity Reaction Status Date / Time macadamia nut oil Allergy Rash Verified 05/09/24 17:52 Family History Mother Breast cancer Kidney disease Ovarian cancer Pancreatic cancer Surgical History Hx of sinus surgery Hx of foot surgery H/O foot surgery Social History Smoking Status: Never smoker ROS ROS ED Constitutional Constitutional ED: Reports chills and subjective; Denies fever(s) Eyes Eyes: Denies blurry vision or change in vision ENT ENT ED: Denies rhinorrhea or sore throat Cardiovascular Cardiovascular: Denies chest pain or palpitations Respiratory/Chest Respiratory/Chest: Denies cough or dyspnea Gastrointestinal Gastrointestinal: Reports abdominal pain and nausea; Denies vomiting Genitourinary Genitourinary ED: Denies dysuria or hematuria Musculoskeletal Musculoskeletal: Reports back pain; Denies neck pain Integumentary Denies abscess or rash Neurologic Neurologic: Denies headache(s) or weakness Allergic/Immunologic Allergic/Immunologic ED: Denies mouth swelling or urticaria EXAM Physical Exam Const Vital Signs: 05/09/24 17:52 Temperature 97.9 F Temperature Source Temporal Pulse Rate 98 Respiratory Rate 22 H Blood Pressure 153/102 H Blood Pressure Mean 119 Pulse Ox 100 Oxygen Delivery Method Room Air Positive well nourished and well developed General Appearance ED: well developed and NAD HEENT Reports moist mucous membranes Neck supple and no JVD Resp normal respiratory effort and clear to auscultation bilaterally Cardio regular rate and regular rhythm GI non-distended Palpation: soft and tender RLQ, RUQ, periumbilical and suprapubic; Negative for guarding or rebound tenderness present Back/Spine General Back: CVA tenderness right Extremity Extremity Narrative: There is tenderness over the right hip. There is no deformity noted. Range of motion was slightly limited in all motions of the right hip secondary to pain. Pedal pulses are equal bilaterally. Strength is 5/5 bilaterally in the lower extremities. There are no sensory deficits. There is no calf tenderness or edema. General Extremety ED: Negative for edema or tenderness General Extremity: Negative for edema Neuro oriented x3, CN's II-XII intact bilaterally and no sensory deficits noted Sensorium / Orientation (more content not included)... Normal [facility] ,Serum,hCG Quali.on 05-09-2024 HCG, SERUM QUAL Negative Normal [facility] Comment on above: Performed By: #### L 700.6800, L100.0100, L500.4050 #### [facility] [address] [place], [place], [address] Urinalysis, Completeon 05-09 BACTERIA 1+ /hpf Normal None Seen [facility] Comment on above: Order Comment: CLEAN CATCH Performed By: #### L 400.0001 #### [facility] [address] [place], [address] EPI,SQUAMOUS 0-5 SEEN Normal 5-10 [facility] Comment on above: Order Comment: CLEAN CATCH Performed By: #### L 400.0001 #### [facility] [address] [place], [address] Mucus Ql (Urine sed) 1+ /hpf Normal [facility] Comment on above: Order Comment: CLEAN CATCH Performed By: #### L 400.0001 #### [facility] [address] [place], [address] RBC 0 SEEN Normal 0-5 [facility] Comment on above: Order Comment: CLEAN CATCH Performed By: #### L 400.0001 #### [facility] [address] [place], [address] WBC 0 SEEN Normal 0-5 [facility] Comment on above: Order Comment: CLEAN CATCH Performed By: #### L 400.0001 #### [facility] [address] [place], [address] CNOVon 05-06-2024 CNOV Office Visit (WSTR ) -------- CANDELARIA GRANT ([id number]) 1985 F Date Time Provider Department 05/06/24 5:15 PM YAQUELIN TA RUST During your visit today, we recorded the following information about you: Temperature Pulse Respiration Blood pressure 98.2 degrees 79/minute 20/minute 159/96 Weight Last Period 89 kg 04/09/24 Yaquelin Ta APRN.GUM COOK 05/06/2024 6:35 PM Signed Subjective Back Pain Pertinent negatives include no fever, no abdominal pain and no dysuria. Ear Pain Pertinent negatives include no abdominal pain, chills, fever, nausea, sore throat or vomiting. Pt is a 39 y/o female who presents with R sided low back sharp shooting pain x 2 days and left ear pain x 1 week. Pt reports back pain as intermittent 10/10 sharp back pain that shoots up the back. Denies injury to her back. States she lifts heavy items at work. Pt also reports that left ear has been bothering her for a week and reports having impacted cerumen in the canal. No fevers, body aches or chills reported. Review of Systems Constitutional: Negative for chills, fever and malaise/fatigue. HENT: Positive for ear pain. Negative for ear discharge, sinus pain and sore throat. Respiratory: Negative. Cardiovascular: Negative. Gastrointestinal: Negative for abdominal pain, diarrhea, nausea and vomiting. Genitourinary: Negative for dysuria, flank pain, frequency and urgency. Musculoskeletal: Positive for back pain. BP 159/96 Pulse 79 Temp 36.8 ?C (98.2 ?F) Resp 20 Wt 89 kg (196 lb 3.4 oz) LMP 2024 (Within Days) SpO2 100% BMI 28.98 kg/m? PAST MEDICAL HISTORY Diagnosis Date Abnormal Pap smear of cervix ascus cannot rule out high grade Diabetes mellitus type 2 in obese Gastroesophageal reflux disease without esophagitis Globus sensation Migraine headache Obesity PAST SURGICAL HISTORY Procedure Laterality Date SECTION HX 03/24/2013 CHOLECYSTECTOMY HX INSERTION OF IUD 2017 Mirena IUD removed 10/20/2020 KYLEENA IUD 10/20/2020 LYSIS OF ADHESIONS 07/04/2023 NEXPLANON INSERTION 05/10/2013 OSTECTOMY CALCANEUS SPUR W/WO PLNTAR FASCIAL RLS Left Dr. Jimenez REPAIR OF NASAL SEPTUM SALPINGECTOMY Bilateral 07/04/2023 Laparoscopic B/L Salpingectomy at [facility]-Dr. Condon ALLERGIES Macadamia Nut Oil and Meloxicam MEDICATIONS tirzepatide (MOUNJARO) 12.5 mg/0.5 mL pen injector Inject 12.5 mg subcutaneously one time a week. colestipol (COLESTID) 1 gram tablet Take 1 tablet by mouth once daily. For Diarrhea Post Gall Bladder Removal pantoprazole DR (PROTONIX) 40 mg tablet Take 1 tablet by mouth two times a day. Take on empty stomach, 1/2 hr before meal. sucralfate (CARAFATE) 1 gram tablet Take 1 tablet by mouth before meals and at bedtime. Phentermine HCl 37.5 mg capsule Take 1 capsule by mouth once daily for 90 days. BMI 30.57 EPINEPHrine (EPIPEN) 0.3 mg/0.3 mL auto-injector Use for allergic reaction metFORMIN ER (GLUCOPHAGE XR) 500 mg 24 hr tablet Take 1 tablet by mouth two times a day. levonorgestrel (KYLEENA) 17.5 mcg/24 hrs (5 yrs) 19.5 mg IUD 1 Each by INTRAUTERINE route one time only. flash glucose sensor (FREESTYLE EMILIA 14 DAY SENSOR) kit Apply and use as directed. Dx: Uncontrolled type 2 diabetes without insulin. flash glucose scanning reader (FREESTYLE EMILIA 3 READER) 1 Each once daily. Lancets lancets Test blood sugar(s)2 times daily. Dx: uncontrolled type 2 DM insulin needles, DISPOSABLE, (BD INSULIN PEN NEEDLE UF) 31 gauge x 5/16" use once daily as directed blood sugar diagnostic (BLOOD GLUCOSE TEST) test strip Test blood sugar(s) 2 times daily. Dx: uncontrolled type 2 DM ofloxacin (FLOXIN) 0.3 % otic solution Use 5 Drops in both ears once daily. predniSONE (DELTASONE) 10 mg tablet Take 4 tabs daily for 3 days, then 2 tabs daily for 3 days, then 1 tab daily for 3 days with food. cyclobenzaprine (FLEXERIL) 10 mg tablet Take 1 tablet by mouth at bedtime as needed for muscle spasm for up to 6 days. Phenyleph-Shark Bcg-Jtbs-Uvz (HEMORRHOIDAL) 0.25-3-12 % crea by RECTAL route twice daily. FAMILY HISTORY Problem Relation Age of Onset No Known Problems Mother Cancer Father pancreatic and renal. Anesthesia Problems Father slow emergence, PONV No Known Problems Brother No Known Problems Son Breast Cancer Maternal Aunt Cervical Cancer Paternal Aunt x2- and one cousin No Known Problems Maternal Grandmother Diabetes Maternal Grandfather Diabetes Paternal Grandfather other (lymphomia) Other maternal cousin other (leukemia) Other cousin Social History Tobacco Use Smoking status: Never Smokeless tobacco: Never Vaping Use Vaping status: Never Used Substance Use Topics Alcohol use: Yes Comment: Socially Drug use: Not Currently Types: Marijuana Objective Physical Exam Constitutional: General: She is awake. HENT: (more content not included)... Normal [facility] UA DIP, URINE (POC)on 2024 BILIRUBIN UA (POCT) Negative Negative [facility] CLARITY UA (POCT) Clear [facility] COLOR UA (POCT) Yellow [facility] GLUCOSE UA (POCT) Negative Negative mg/dL [facility] Hemoglobin Ql (U) Negative Negative [facility] KETONE UA (POCT) Negative Negative mg/dL [facility] LEUKOCYTES UA (POCT) Negative Negative [facility] NITRITE UA (POCT) Negative Negative [facility] PH UA (POCT) 6 4.5 - 8.0 [facility] Protein Ql (U) Negative Negative mg/dL [facility] SPECIFIC GRAVITY UA (POCT) 1.01 1.005 - 1.030 [facility] UROBILINOGEN UA (POCT) 0.2 Normal E.U./dL [facility] Location:[address], [address] [place] [address] POINT OF CARE [facility] ANES POSTPROC EVALon 025 ANES POSTPROC EVAL HNO ID: [id number] Author: CARMEN COSTELLO MD Service: Anesthesiology Author Type: Physician Type: Anesthesia Postprocedure Evaluation Filed: 04/01/2024 13:06 Note Text: POST ANESTHESIA EVALUATION NOTE : 1985 Procedure Summary Date: 04/01/24 Room / Location: SURGERY Anesthesia Start: 1246 Anesthesia Stop: Procedure: EGD DIAGNOSTIC Diagnosis: Gastroesophageal reflux disease without esophagitis Globus sensation Bloating Upset stomach Nausea Gastroesophageal reflux disease without esophagitis Globus sensation Bloating Upset stomach Nausea Scheduled Providers: Goldie Caldwell MD; Carmen Costello MD Responsible Provider: Carmen Costello MD Anesthesia Type: MAC ASA Status: 3 Anesthesia Type: MAC Last Vitals Vitals Value Taken Time BP 142/75 04/01/24 1305 Temp 97.8 04/01/24 1306 Pulse 90 04/01/24 1305 Resp 20 04/01/24 1305 SpO2 100% 04/01/24 1306 Vitals shown include unfiled device data. Post Anesthesia Patient Status Patient Evaluation: bedside. Anticipated Disposition: phase 2 then home. Neurological Status: aware and responsive. Pulmonary Status: breathing comfortably on room air Airway Control: returned to baseline unsupported. Cardiovascular Status: stable. Pain Management: clinically adequate Postoperative Hydration: acceptable. Intraoperative Events: no significant anesthesia events Post Operative Nausea/Vomiting Status: no significant post operative nausea or vomiting Recommendation: continue current plan of care. Anesthesia Observations No Documentation SIGNATURE: Carmen Costello MD PATIENT NAME: Candelaria Grant DATE: April 01, 2024 TIME: 1:06 PM CSN: [id number] [facility] ANES PRE-OPon 04-01-2024 ANES PRE-OP HNO ID: [id number] Author: CARMEN COSTELLO MD Service: Anesthesiology Author Type: Physician Type: Anesthesia Preprocedure Evaluation Filed: 04/01/2024 12:42 Note Text: ANESTHESIOLOGY DAY OF SURGERY NOTE : 1985 Procedure Information Date/Time: 04/01/24 1030 Scheduled providers: Goldie Caldwell MD; Carmen Costello MD Procedure: EGD DIAGNOSTIC Location: LD SURGERY Estimated body mass index is 27.91 kg/m? as calculated from the following: Height as of 03/01/24: 175.3 cm (5' 9"). Weight as of this encounter: 85.7 kg (189 lb). Most recent hematocrit and potassium results: Hematocrit 38.3 01/19/2024 Potassium 3.7 01/19/2024 Relevant Problems CARDIO (+) Migraine headache ENDO (+) Uncontrolled type 2 diabetes mellitus without complication, without long-term current use of insulin NEURO-PSYCH (+) History of gestational diabetes (+) Migraine headache I - PHYSICAL EVALUATION AIRWAY Patient intubated: No. Tracheostomy tube not present Mallampati: II. TM distance: >3 FB. Neck ROM: full ROM without neurological symptoms. Mouth opening: adequate. Short neck: no. Thick neck: no Jacobo present: no Microretrognathia/Micron agthia/Recessed Chin: No DENTAL Dental findings: edentulous. Additional exam findings: yes. CARDIOVASCULAR Normal cardiovascular observations. PULMONARY Normal pulmonary observations. II - ANESTHESIA PLAN ASA Score: 3 Anesthetic Plan: MAC The patient is a current smoker. (THC last 2 days ago) Beta Mary Carmen Monitoring Plan Monitoring plan: standard ASA. Post Procedure Analgesic Plan Postoperative analgesic plan: parenteral or oral opioids. Informed Consent Anesthetic risks, benefits, alternatives, personnel and consent discussed: yes. Patient / Responsible Democrat agrees to proceed: yes Patient / Surrogate agrees to blood products: Yes DNR status not reviewed with patient and/or family prior to surgery. Significant changes in the patient condition since the History and Physical, not otherwise documented in primary service progress note: no. Potential Anesthesia issues that may suggest increased risk of complications or contraindication to planned procedure: none. Vitals Value Taken Time BP 156/94 04/01/24 1212 Pulse 70 04/01/24 1212 Resp 12 04/01/241211 Temp 36.8 ?C (98.3 ?F) 04/01/24 121 SpO2 100 % 04/01/241211 Facility-Administered Medications as of 04/01/2024 Medication Dose Route Frequency - lidocaine (PF) 10 mg/mL (1 %) 1-2 mg injection (XYLOCAINE) 0.1-0.2 mL INTRADERMAL PRN - lactated ringers iv infusion 30 mL/hr INTRAVENOUS CONTINUOUS Outpatient Medications as of 04/01/2024 Medication Sig - colestipol (COLESTID) 1 gram tablet Take 1 tablet by mouth once daily. For Diarrhea Post Gall Bladder Removal - pantoprazole DR (PROTONIX) 40 mg tablet Take 1 tablet by mouth two times a day. Take on empty stomach, 1/2 hr before meal. - metFORMIN ER (GLUCOPHAGE XR) 500 mg 24 hr tablet Take 1 tablet by mouth two times a day. - blood sugar diagnostic (BLOOD GLUCOSE TEST) test strip Test blood sugar(s) 2 times daily. Dx: uncontrolled type 2 DM - tirzepatide (MOUNJARO) 12.5 mg/0.5 mL pen injector Inject 12.5 mg subcutaneously one time a week. (Patient not taking: Reported on 03/28/2024) - sucralfate (CARAFATE) 1 gram tablet Take 1 tablet by mouth before meals and at bedtime. (Patient not taking: Reported on 03/01/2024) - Phentermine HCl 37.5 mg capsule Take 1 capsule by mouth once daily for 90 days. BMI 30.57 (Patient not taking: Reported on 03/28/2024) - EPINEPHrine (EPIPEN) 0.3 mg/0.3 mL auto-injector Use for allergic reaction - levonorgestrel (KYLEENA) 17.5 mcg/24 hrs (5 yrs) 19.5 mg IUD 1 Each by INTRAUTERINE route one time only. - flash glucose sensor (FREESTYLE EMILIA 14 DAY SENSOR) kit Apply and use as directed. Dx: Uncontrolled type 2 diabetes without insulin. - flash glucose scanning reader (FREESTYLE EMILIA 3 READER) 1 Each once daily. - Phenyleph-Shark Gkt-Ylrf-Qcx (HEMORRHOIDAL) 0.25-3-12 % crea by RECTAL route twice daily. - Lancets lancets Test blood sugar(s)2 times daily. Dx: uncontrolled type 2 DM - insulin needles, DISPOSABLE, (BD INSULIN PEN NEEDLE UF) 31 gauge x 5/16" use once daily as directed I have interviewed and examined the patient. I have reviewed the medical record and/or the pre-anesthesia evaluation, pertinent labs, and test results. This contains updated information obtained within 48 hours of Surgery/Procedure. SIGNATURE: Carmen Costello MD PATIENT NAME: Candelaria Grant DATE: April 01, 2024 TIME: 12:40 PM CSN: [id number] [facility] BRIEF OP NOTon 04-01-2024 BRIEF OP NOT HNO ID: [id number] Author: GOLDIE CALDWELL MD Service: General Surgery Author Type: Physician Type: Brief Op Note Filed: 04/01/2024 13:03 Note Text: BRIEF OPERATIVE NOTE SURGERY DATE: 04/01/2024 Incision/Procedure Start Time: 12:52 Incision Close/Procedure End Time: 12:58 Surgeon(s)/Proceduralist (s) and Radiology Scheduler(s): Javi Procedures: EGD with biopsies Anesthesia: MAC Findings: small hiatal hernia, radial erythema of antrum of stomach, retained bile in stomach, irregular GE junction Estimated Blood Loss: minimal Specimens: mucosal biopsies of antrum of stomach/GEJ Complications: None Closure Technique: Non-primary Preop Diagnosis: GERD Postop Diagnosis: Same as above, small hiatal hernia, radial erythema of antrum of stomach, retained bile in stomach, irregular GEJ Patient was accompanied to the next level of care by a licensed practitioner from the surgical team pending completion of this brief op note (or operative note) SIGNATURE: Goldie Caldwell MD PATIENT NAME: Candelaria Grant DATE: April 01, 2024 TIME: 1:01 PM Acct: [id number] Normal [facility] HISTORY PHYSICALon HISTORY PHYSICAL HNO ID: [id number] Author: GOLDIE CALDWELL MD Service: General Surgery Author Type: Physician Type: H&P Filed: 04/01/2024 09:28 Note Text: HISTORY AND PHYSICAL Candelaria Grant : 1985 REFERRING PHYSICIAN: Teo Linder [address] [facility] [address] CHIEF COMPLAINT: Patient presents with: Consult HPI: Candelaria is a 38 year old female referred for endoscopy. Candelaria notes worsening GERD symptoms since increasing her Mounjaro dose in October. Candelaria notes heartburn. Feeling like lava is coming up" +nausea +decreased appetite +bloating +notes a globus sensation- states it feels like mucus needing to be brought up. +hx of cholecystectomy Candelaria denies dysphagia. Candelaria denies a history of ulcers/ peptic ulcer disease. OV on 02/26- Mounjaro dose was decreased- pt is still on Adipex AND taking Protonix 40mg notes no improvement. Was prescribed carafate but told not to take it. Candelaria has not undergone prior endoscopy. CURRENT MEDICATIONS Current Outpatient Medications Medication Sig tirzepatide (MOUNJARO) 12.5 mg/0.5 mL pen injector Inject 12.5 mg subcutaneously one time a week. colestipol (COLESTID) 1 gram tablet Take 1 tablet by mouth once daily. For Diarrhea Post Gall Bladder Removal pantoprazole DR (PROTONIX) 40 mg tablet Take 1 tablet by mouth two times a day. Take on empty stomach, 1/2 hr before meal. Phentermine HCl 37.5 mg capsule Take 1 capsule by mouth once daily for 90 days. BMI 30.57 EPINEPHrine (EPIPEN) 0.3 mg/0.3 mL auto-injector Use for allergic reaction metFORMIN ER (GLUCOPHAGE XR) 500 mg 24 hr tablet Take 1 tablet by mouth two times a day. levonorgestrel (KYLEENA) 17.5 mcg/24 hrs (5 yrs) 19.5 mg IUD 1 Each by INTRAUTERINE route one time only. flash glucose sensor (FREESTYLE EMILIA 14 DAY SENSOR) kit Apply and use as directed. Dx: Uncontrolled type 2 diabetes without insulin. flash glucose scanning reader (FREESTYLE EMILIA 3 READER) 1 Each once daily. Lancets lancets Test blood sugar(s)2 times daily. Dx: uncontrolled type 2 DM insulin needles, DISPOSABLE, (BD INSULIN PEN NEEDLE UF) 31 gauge x 5/16" use once daily as directed blood sugar diagnostic (BLOOD GLUCOSE TEST) test strip Test blood sugar(s) 2 times daily. Dx: uncontrolled type 2 DM sucralfate (CARAFATE) 1 gram tablet Take 1 tablet by mouth before meals and at bedtime. (Patient not taking: Reported on 03/01/2024) nystatin (MYCOSTATIN) 100,000 unit/mL suspension 5 mL four times daily. Swish/swallow or swish/expectorate (Patient not taking: Reported on 03/01/2024) Phenyleph-Shark Ihg-Zash-Daz (HEMORRHOIDAL) 0.25-3-12 % crea by RECTAL route twice daily. No current facility-administered medications for this visit. ALLERGIES: Macadamia Nut Oil and Meloxicam PAST MEDICAL HISTORY PAST MEDICAL HISTORY Diagnosis Date Abnormal Pap smear of cervix ascus cannot rule out high grade Diabetes mellitus type 2 in obese Gastroesophageal reflux disease without esophagitis Globus sensation Migraine headache Obesity PAST SURGICAL HISTORY PAST SURGICAL HISTORY Procedure Laterality Date SECTION HX 03/24/2013 CHOLECYSTECTOMY HX INSERTION OF IUD 2017 Mirena IUD removed 10/20/2020 KYLEENA IUD 10/20/2020 LYSIS OF ADHESIONS 07/04/2023 NEXPLANON INSERTION 05/10/2013 OSTECTOMY CALCANEUS SPUR W/WO PLNTAR FASCIAL RLS Left Dr. Jimenez REPAIR OF NASAL SEPTUM SALPINGECTOMY Bilateral 07/04/2023 Laparoscopic B/L Salpingectomy at [facility]-Dr. Condon FAMILY HISTORY FAMILY HISTORY Problem Relation Age of Onset No Known Problems Mother Cancer Father pancreatic and renal. Anesthesia Problems Father slow emergence, PONV No Known Problems Brother No Known Problems Son Breast Cancer Maternal Aunt Cervical Cancer Paternal Aunt x2- and one cousin No Known Problems Maternal Grandmother Diabetes Maternal Grandfather Diabetes Paternal Grandfather other (lymphomia) Other maternal cousin other (leukemia) Other cousin SOCIAL HISTORY Social History Tobacco Use Smoking status: Never Smokeless tobacco: Never Vaping Use Vaping status: Never Used Substance Use Topics Alcohol use: Yes Comment: Socially Drug use: Not Currently Types: Marijuana REVIEW OF SYMPTOMS: REVIEW OF SYSTEMS: General: The patient denies fatigue, denies weight loss, denies weight gain, denies feeling hot, and feelings of cold. Eyes: The patient denies glaucoma, denies eye injury/surgery, denies glasses or contacts. Ear/Nose/Throat: The patient + allergies, denies hayfever, + ear infections, and + bloody noses. Cardiovascular: The patient denies chest pain, denies heart disease, denies high blood pressure, denies high cholesterol, and denies poor circulation. Respiratory: The patient denies tuberculosis, denies pneumonia, denies frequent cough, denies shortness of breath, and denies coughing up blood. Gastrointestinal: The patient denies (more content not included)... Normal [facility] OPERATIVE NOon 04-01-2024 OPERATIVE NO HNO ID: [id number] Author: GOLDIE CALDWELL MD Service: General Surgery Author Type: Physician Type: Operative Report Filed: 04/01/2024 20:08 Note Text: [facility] - Operative Report - CANDELARIA Saul : 1985 AGE: 38. SEX: F PATIENT TYPE: O HOSP SVC: Surgical LOCATION: [facility] ATTENDING PHYSICIAN: Goldie Caldwell MD CSN NUMBER: [id number] DATE OF SURGERY/PROCEDURE: 04/01/2024 INCISION/PROCEDURE START TIME: 12:52 PM INCISION CLOSE/PROCEDURE END TIME: 12:58 PM PREOPERATIVE DIAGNOSIS: Acid reflux. POSTOPERATIVE DIAGNOSIS: Small hiatal hernia. SURGEON: Goldie Caldwell MD SERVICE COORDINATOR: No Additional Staff SURGERY/PROCEDURE: Esophagogastroduodenosco py with biopsies using cold grasper forceps ANESTHESIA: MAC LOCATION: [facility]. INDICATIONS: Candelaria Grant is a 38-year-old female, who complains of acid reflux. She therefore presents for esophagogastroduodenosco py. She has been counseled the risks of procedure including, but not limited to infection, bleeding, perforation of GI tract, inability to complete procedure, injury to any internal organs, etc. The patient understands and agrees to proceed. DESCRIPTION OF PROCEDURE: After informed consent was given, the patient was brought to the endoscopy suite. Appropriate time-out protocol was followed. She was placed in left lateral decubitus position. A bite block was placed. She was given IV anesthesia by the anesthesia provider. The endoscope was lubricated, carefully inserted in the patient's mouth, advanced into the esophagus. It was then advanced into the stomach, past the pylorus, then into the first and second portion of the duodenum. No lesions were noted in the duodenum. The endoscope was retracted back into the stomach. There was mild radial erythematous streaking of the antrum of stomach. She was also noted to have retained bile in the stomach. Mucosal biopsies of the antrum of the stomach were taken using cold grasper forceps for H pylori and histology. No masses, polyps or ulcers noted in the stomach. Retroflexed view in the fundus and the body of the stomach revealed a very small hiatal hernia. The endoscope was retracted back into the esophagus. The GE junction appeared minimally irregular and mucosal biopsies were taken using cold grasper forceps. The remainder of the esophagus appeared normal. The endoscope was removed intact. The patient tolerated the procedure well, was brought to recovery room in stable condition. ESTIMATED BLOOD LOSS: Minimal. SPECIMENS: Mucosal biopsies, antrum of stomach and GE junction. COMPLICATIONS: None. Goldie Caldwell MD LW:[id number] /[id number] [facility] SURGICAL PATHOLOGYon 025 CASE REPORT Normal [facility] Comment on above: Order Comment: Speci men Type: TISSUE SPECIMEN Ordering Facility: [facility] Address: [address] [place] [address] Result Comment: Surg [facility] Pathology Report Case: [id number] Authorizing Provider: Goldie Caldwell MD Collected: 04/01/2024 12:55 PM Ordering Location: SURGERY Received: 04/01/2024 03:59 PM Pathologist: Lidia Doyle MD Specimens: A) - Stomach, Antrum, Biopsy B) - Esophagogastric Junction, Biopsy Performed By: #### S #### [facility] CLIA [id number] [address] [place] [address] [place] DIAGNOSIS COMMENT Negative Normal [facility] [facility] Comment on above: Order Comment: Speci bethany Type: TISSUE SPECIMEN Ordering Facility: [facility] Address: [address] [place] [address] Performed By: #### S #### [facility] CLIA [id number] [address] [place] [address] FINAL DIAGNOSIS Normal [facility] Comment on above: Order Comment: Aurai bethany Type: TISSUE SPECIMEN Ordering Facility: [facility] Address: [address] [place] [address] Result Comment: Christiane. S mariferach antrum, biopsy: -- Antral type gastric mucosa with change of mild reactive gastropathy. -- No morphologic evidence of H. pylori organisms identified on H&E sections. B. Esophagogastric junction, biopsy: -- Squamous mucosa with features suggestive of reflux esophagitis. -- Glandular mucosa with mild chronic inflammation, negative for intestinal metaplasia, see comment. Performed By: #### S #### [facility] CLIA [id number] [address] [place] [address] FINAL PERFORMING LAB Normal [facility] Comment on above: Order Comment: Jorgito sims Type: TISSUE SPECIMEN Ordering Facility: [facility] Address: [address] [place] [address] Result Comment: Diag nostic interpretation performed at: [facility], [address] [address] CLIA# [id number] Site Operations Manager: Anthony Barrera MD Performed By: #### S #### [facility] CLIA [id number] [address] [place] [address] GROSS DESCRIPTION Normal [facility] Comment on above: Order Comment: Jorgito sims Type: TISSUE SPECIMEN Ordering Facility: [facility] Address: [address] [place] [address] Result Comment: A. S tomach, Antrum, Biopsy Received in formalin and designated "stomach antrum biopsy" are fragments, flecks of causey tissue ranging in size from less than 0.1 by less than 0.1 by less than 0.1 cm to 0.3 x 0.2 x 0.1 cm. The specimen is entirely submitted in cassette A1. The smaller fragments of tissue may not survive processing. B. Esophagogastric Junction, Biopsy Received in formalin and designated "esophagogastric junction biopsy" are fragments of causey-white tissue, 0.7 x 0.3 x 0.1 cm in aggregate. The specimen is entirely submitted in cassette B1. Gross examination performed at [facility], [address] [place] [address] KM April 02, 2024 11:37 AM Performed By: #### S #### [facility] CLIA [id number] [address] [place] [address] [place] BACTERIAL VAGINOSIS NAATon 0 03-28-2024 Lactobacillus crispatus+gasseri+javi senii + Gardnerella vaginalis + Atopobium vaginae rRNA FAUSTINA+probe Ql (Vag fld) Not detected Normal Not detected [facility] Comment on above: Order Comment: Speci men Type: SWABOrdering Facility: [facility] Address: [address] [place] [address] Performed By: #### 3 6902-5, BVAMP ####[facility]IA [id number] [place] [address] [place] Bacteria Ur Culton Bacteria identified Cx Nom (U) ORGANISM ID: 1 10,000 -<50,000 CFU/ml Normal urogenital zamzam Normal [facility] Comment on above: Performed By: #### 6 30-4 ####[facility] LAB[facility]IA [id number] [place] [address] [place] C. trachomatis+N. gonorrhoea e DNA FAUSTINA+probe Ql (Unsp spec)on 03-28-2024 C. trachomatis rRNA FAUSTINA+probe Ql (Unsp spec) Not detected Normal Not detected [facility] Comment on above: Order Comment: Speci men Type: SWABOrdering Facility: [facility] Address: [address] [place] [address] Performed By: #### 3 6902-5, BVAMP ####[facility] LAB[facility]IA [id number] [place] [address] [place] N. gonorrhoeae rRNA FAUSTINA+probe Ql (Unsp spec) Not detected Normal Not detected [facility] Comment on above: Order Comment: Speci men Type: SWABOrdering Facility: [facility] Address: [address] [place] [address] Performed By: #### 3 6902-5, BVAMP ####[facility] LAB[facility]IA [id number] [place] [address] [place] MARCELO/TRICHOMONAS NAATon 0 03-28-2024 C. glabrata RNA FAUSTINA+probe Ql (Vag fld) Not detected Normal Not detected [facility] Comment on above: Order Comment: Speci men Type: SWABOrdering Facility: [facility] Address: [address] [place] [address] Performed By: #### C VTV ####[facility] LABCLIA [id number] [place] [address] [place] Marcelo sp DNA FAUSTINA+probe Ql (Vag fld) Not detected Normal Not detected [facility] Comment on above: Order Comment: Speci men Type: SWABOrdering Facility: [facility] Address: [address] [place] [address] Result Comment: The Marcelo species group target includes C. albicans, C. tropicalis, C. parapsilosis, and C. dubliniensis. Performed By: #### C VTV ####[facility] LAB[facility]IA [id number] [place] [address] [place] T. vaginalis DNA FAUSTINA+probe Ql (Unsp spec) Not detected Normal Not detected [facility] Comment on above: Order Comment: Speci men Type: SWABOrdering Facility: [facility] Address: [address] [place] [address] Performed By: #### C VTV ####[facility] LABCLIA [id number] [facility] [id number] [place] [address] [place] CNOVon 03-28-2024 CNOV Office Visit (UCWSTR ) -------- CANDELARIA GRANT ([id number]) 1985 F Date Time Provider Department 03/28/24 2:45 PM ANKUR MATIAS RUST During your visit today, we recorded the following information about you: Temperature Pulse Respiration Blood pressure 98.3 degrees 86/minute 18/minute 165/93 Weight Last Period 89 kg 03/09/24 Ankur Matias APRN.GUM COOK 03/28/2024 3:28 PM Signed Subjective HPI Nontoxic-appearing female presents urgent care chief complaint possible UTI. Duration of symptoms 2 days. Associated symptoms urinary frequency and dysuria. History of UTIs this is similar. Denies any fevers vomiting abdominal pain. No OTC medication use. No vaginal discharge or itching. Denies chance of . Past medical history prescription medications allergies reviewed. Additional complaint rash around eyes. Has been present for a couple months. States this is itchy. Is not painful. No flashes light floaters. No visual acuity changes. No eye trauma or foreign body sensation. Last menstrual cycle 03/09/2024. .Patient presents with: Rash: Around eyes UTI: Frequency and burning x2 days PAST MEDICAL HISTORY Diagnosis Date Abnormal Pap smear of cervix ascus cannot rule out high grade Diabetes mellitus type 2 in obese Gastroesophageal reflux disease without esophagitis Globus sensation Migraine headache Obesity PAST SURGICAL HISTORY Procedure Laterality Date SECTION HX 03/24/2013 CHOLECYSTECTOMY HX INSERTION OF IUD 2017 Mirena IUD removed 10/20/2020 KYLEENA IUD 10/20/2020 LYSIS OF ADHESIONS 07/04/2023 NEXPLANON INSERTION 05/10/2013 OSTECTOMY CALCANEUS SPUR W/WO PLNTAR FASCIAL RLS Left Dr. Jimenez REPAIR OF NASAL SEPTUM SALPINGECTOMY Bilateral 07/04/2023 Laparoscopic B/L Salpingectomy at [facility]-Dr. Condon ALLERGIES Macadamia Nut Oil and Meloxicam MEDICATIONS tirzepatide (MOUNJARO) 12.5 mg/0.5 mL pen injector Inject 12.5 mg subcutaneously one time a week. (Patient not taking: Reported on 03/28/2024) colestipol (COLESTID) 1 gram tablet Take 1 tablet by mouth once daily. For Diarrhea Post Gall Bladder Removal pantoprazole DR (PROTONIX) 40 mg tablet Take 1 tablet by mouth two times a day. Take on empty stomach, 1/2 hr before meal. sucralfate (CARAFATE) 1 gram tablet Take 1 tablet by mouth before meals and at bedtime. (Patient not taking: Reported on 03/01/2024) Phentermine HCl 37.5 mg capsule Take 1 capsule by mouth once daily for 90 days. BMI 30.57 (Patient not taking: Reported on 03/28/2024) EPINEPHrine (EPIPEN) 0.3 mg/0.3 mL auto-injector Use for allergic reaction metFORMIN ER (GLUCOPHAGE XR) 500 mg 24 hr tablet Take 1 tablet by mouth two times a day. levonorgestrel (KYLEENA) 17.5 mcg/24 hrs (5 yrs) 19.5 mg IUD 1 Each by INTRAUTERINE route one time only. flash glucose sensor (FREESTYLE EMILIA 14 DAY SENSOR) kit Apply and use as directed. Dx: Uncontrolled type 2 diabetes without insulin. flash glucose scanning reader (FREESTYLE EMILIA 3 READER) 1 Each once daily. Phenyleph-Shark Ajy-Wpkn-Ezq (HEMORRHOIDAL) 0.25-3-12 % crea by RECTAL route twice daily. Lancets lancets Test blood sugar(s)2 times daily. Dx: uncontrolled type 2 DM insulin needles, DISPOSABLE, (BD INSULIN PEN NEEDLE UF) 31 gauge x 5/16" use once daily as directed blood sugar diagnostic (BLOOD GLUCOSE TEST) test strip Test blood sugar(s) 2 times daily. Dx: uncontrolled type 2 DM FAMILY HISTORY Problem Relation Age of Onset No Known Problems Mother Cancer Father pancreatic and renal. Anesthesia Problems Father slow emergence, PONV No Known Problems Brother No Known Problems Son Breast Cancer Maternal Aunt Cervical Cancer Paternal Aunt x2- and one cousin No Known Problems Maternal Grandmother Diabetes Maternal Grandfather Diabetes Paternal Grandfather other (lymphomia) Other maternal cousin other (leukemia) Other cousin Social History Tobacco Use Smoking status: Never Smokeless tobacco: Never Vaping Use Vaping status: Never Used Substance Use Topics Alcohol use: Yes Comment: Socially Drug use: Not Currently Types: Marijuana BP 165/93 Pulse 86 Temp 36.8 ?C (98.3 ?F) Resp 18 Wt 89 kg (196 lb 3.4 oz) LMP 03/09/2024 (Within Days) SpO2 100% BMI 28.98 kg/m? Review of Systems Constitutional: Negative for chills, fever and malaise/fatigue. HENT: Negative for congestion, ear discharge, ear pain, sinus pain and sore throat. Eyes: Negative for blurred vision, pain, discharge and redness. Respiratory: Negative for cough, hemoptysis, sputum production, shortness of breath, wheezing and stridor. Cardiovascular: Negative for chest pain. Gastrointestinal: Negative for abdominal pain, constipation, diarrhea, nausea and vomiting. Genitourinary: Positive for dysuria, frequency and urgency. Negative for flank pain and hematuria. Musculoskeletal: N (more content not included)... Normal [facility] GLUCOSE, BLOOD (POC)on 03-28 Glucose [Mass/Vol] 131 mg/dL Abnormal 74 - 99 mg/dL [facility] Comment on above: Location:[address], [place], [address] The Accu-Chek Inform II glucose meter has not been approved for testing on patients receiving intensive medical intervention or therapy and results from this point of care glucose test should not be used for patient management decisions in these cases. Inaccurate results may also occur from other interfering factors, such as N-acetylcysteine (blood concentrations of greater than 5mg/dL), galactose, extremes of hematocrit (<10 or >65), or high doses of ascorbic acid (vitamin C) greater than 3mg/dL. Consider alternate testing mechanisms (e.g. core lab, blood gas instrument) in the above situations. Interpretation and review of laboratory results Abnormal [facility] UA DIP, URINE (POC)on 2024 BILIRUBIN UA (POCT) Small Abnormal Negative [facility] CLARITY UA (POCT) Clear [facility] COLOR UA (POCT) Dark yellow [facility] GLUCOSE UA (POCT) 500 mg/dL Abnormal Negative [facility] Hemoglobin Ql (U) Negative Negative [facility] Interpretation and review of laboratory results Abnormal [facility] KETONE UA (POCT) Negative Negative mg/dL [facility] ([facility]) Negative [facility] NITRITE UA (POCT) Negative Negative [facility] PH UA (POCT) 5.5 4.5 - 8.0 [facility] Protein Ql (U) 30 mg/dL Abnormal Negative [facility] SPECIFIC GRAVITY UA (POCT) >=1.030 1.005 - 1.030 [facility] UROBILINOGEN UA (POCT) 0.2 Normal E.U./dL [facility] Location: [place], [address] [place] [address], [place], [place], [id number] [place] [address] POINT OF CARE [facility] CNCOon 03-01-2024 CNCO Letter Text Normal [facility] CNOVon 03-01-2024 CNOV Office Visit (GENSWS ) -------- CANDELARIA GRANT ([id number]) 1985 F Date Time Provider Department 03/01/24 2:00 PM TORI MADDOX GENShimon During your visit today, we recorded the following information about you: Temperature Pulse Respiration Blood pressure 98.4 degrees 94/minute 12/minute 130/86 Weight Height 86.6 kg 1.753 m Tori Maddox APRN.CNP 03/01/2024 3:47 PM Addendum HISTORY AND PHYSICAL Candelaria Grant : 1985 REFERRING PHYSICIAN: Teo Linder [address] [facility] [address] CHIEF COMPLAINT: Patient presents with: Consult HPI: Candelaria is a 38 year old female referred for endoscopy. Candelaria notes worsening GERD symptoms since increasing her Mounjaro dose in October. Candelaria notes heartburn. Feeling like lava is coming up" +nausea +decreased appetite +bloating +notes a globus sensation- states it feels like mucus needing to be brought up. +hx of cholecystectomy Candelaria denies dysphagia. Candelaria denies a history of ulcers/ peptic ulcer disease. OV on 02/26- Mounjaro dose was decreased- pt is still on Adipex AND taking Protonix 40mg notes no improvement. Was prescribed carafate but told not to take it. Candelaria has not undergone prior endoscopy. Current Outpatient Medications Medication Sig tirzepatide (MOUNJARO) 12.5 mg/0.5 mL pen injector Inject 12.5 mg subcutaneously one time a week. colestipol (COLESTID) 1 gram tablet Take 1 tablet by mouth once daily. For Diarrhea Post Gall Bladder Removal pantoprazole DR (PROTONIX) 40 mg tablet Take 1 tablet by mouth two times a day. Take on empty stomach, 1/2 hr before meal. Phentermine HCl 37.5 mg capsule Take 1 capsule by mouth once daily for 90 days. BMI 30.57 EPINEPHrine (EPIPEN) 0.3 mg/0.3 mL auto-injector Use for allergic reaction metFORMIN ER (GLUCOPHAGE XR) 500 mg 24 hr tablet Take 1 tablet by mouth two times a day. levonorgestrel (KYLEENA) 17.5 mcg/24 hrs (5 yrs) 19.5 mg IUD 1 Each by INTRAUTERINE route one time only. flash glucose sensor (FREESTYLE EMILIA 14 DAY SENSOR) kit Apply and use as directed. Dx: Uncontrolled type 2 diabetes without insulin. flash glucose scanning reader (FREESTYLE EMILIA 3 READER) 1 Each once daily. Lancets lancets Test blood sugar(s)2 times daily. Dx: uncontrolled type 2 DM insulin needles, DISPOSABLE, (BD INSULIN PEN NEEDLE UF) 31 gauge x 5/16" use once daily as directed blood sugar diagnostic (BLOOD GLUCOSE TEST) test strip Test blood sugar(s) 2 times daily. Dx: uncontrolled type 2 DM sucralfate (CARAFATE) 1 gram tablet Take 1 tablet by mouth before meals and at bedtime. (Patient not taking: Reported on 03/01/2024) nystatin (MYCOSTATIN) 100,000 unit/mL suspension 5 mL four times daily. Swish/swallow or swish/expectorate (Patient not taking: Reported on 03/01/2024) Phenyleph-Shark Rop-Bsfd-Xaa (HEMORRHOIDAL) 0.25-3-12 % crea by RECTAL route twice daily. No current facility-administered medications for this visit. ALLERGIES: Macadamia Nut Oil and Meloxicam PAST MEDICAL HISTORY Diagnosis Date Abnormal Pap smear of cervix ascus cannot rule out high grade Diabetes mellitus type 2 in obese Gastroesophageal reflux disease without esophagitis Globus sensation Migraine headache Obesity PAST SURGICAL HISTORY Procedure Laterality Date SECTION HX 03/24/2013 CHOLECYSTECTOMY HX INSERTION OF IUD 2017 Mirena IUD removed 10/20/2020 KYLEENA IUD 10/20/2020 LYSIS OF ADHESIONS 07/04/2023 NEXPLANON INSERTION 05/10/2013 OSTECTOMY CALCANEUS SPUR W/WO PLNTAR FASCIAL RLS Left Dr. Jimenez REPAIR OF NASAL SEPTUM SALPINGECTOMY Bilateral 07/04/2023 Laparoscopic B/L Salpingectomy at [facility]-Dr. Condon FAMILY HISTORY Problem Relation Age of Onset No Known Problems Mother Cancer Father pancreatic and renal. Anesthesia Problems Father slow emergence, PONV No Known Problems Brother No Known Problems Son Breast Cancer Maternal Aunt Cervical Cancer Paternal Aunt x2- and one cousin No Known Problems Maternal Grandmother Diabetes Maternal Grandfather Diabetes Paternal Grandfather other (lymphomia) Other maternal cousin other (leukemia) Other cousin Social History Tobacco Use Smoking status: Never Smokeless tobacco: Never Vaping Use Vaping status: Never Used Substance Use Topics Alcohol use: Yes Comment: Socially Drug use: Not Currently Types: Marijuana REVIEW OF SYMPTOMS: REVIEW OF SYSTEMS: General: The patient denies fatigue, denies weight loss, denies weight gain, denies feeling hot, and feelings of cold. Eyes: The patient denies glaucoma, denies eye injury/surgery, denies glasses or contacts. Ear/Nose/Throat: The patient + allergies, denies hayfever, + ear infections, and + bloody noses. Cardiovascular: The patient denies chest pain, denies heart disease, denies high blood pressure, denies high cho (more content not included)... Normal [facility] Rosanna 03-01-2024 [facility] Telephone ([employer]) -------- FRANCESCACANDELARIA HAMILTON Maximo ([id number]) 1985 F Date Time Provider Department 03/01/24 TORI MADDOX During your visit today, we recorded the following information about you: Akil Liu 03/01/2024 3:19 PM Signed 04-01-2024 [facility] provider went over all information and gave direct number to call Akil Liu Allergies As of Date: 03/01/2024 Noted Allergy Reaction MACADAMIA NUT OIL 04/08/2014 4 - Hives 7 - Swelling 12 - Shortness of Breath MELOXICAM 08/30/2015 5 - Intolerance Comments: Headache Date Reviewed: 03/01/2024 Reviewed by: Tori Maddox APRN.GUM COOK - Fully Assessed Reason for Visit: 04-01-2024 [facility] [Other] Prescriptions as of 04/21/2024 - tirzepatide (MOUNJARO) 12.5 mg/0.5 mL pen injector Inject 12.5 mg subcutaneously one time a week. - colestipol (COLESTID) 1 gram tablet Take 1 tablet by mouth once daily. For Diarrhea Post Gall Bladder Removal - pantoprazole DR (PROTONIX) 40 mg tablet Take 1 tablet by mouth two times a day. Take on empty stomach, 1/2 hr before meal. - sucralfate (CARAFATE) 1 gram tablet Take 1 tablet by mouth before meals and at bedtime. - Phentermine HCl 37.5 mg capsule Take 1 capsule by mouth once daily for 90 days. BMI 30.57 - EPINEPHrine (EPIPEN) 0.3 mg/0.3 mL auto-injector Use for allergic reaction - metFORMIN ER (GLUCOPHAGE XR) 500 mg 24 hr tablet Take 1 tablet by mouth two times a day. - levonorgestrel (KYLEENA) 17.5 mcg/24 hrs (5 yrs) 19.5 mg IUD 1 Each by INTRAUTERINE route one time only. - flash glucose sensor (FREESTYLE EMILIA 14 DAY SENSOR) kit Apply and use as directed. Dx: Uncontrolled type 2 diabetes without insulin. - flash glucose scanning reader (FREESTYLE EMILIA 3 READER) 1 Each once daily. - Phenyleph-Shark Jdm-Dcpl-Zxf (HEMORRHOIDAL) 0.25-3-12 % crea by RECTAL route twice daily. - Lancets lancets Test blood sugar(s)2 times daily. Dx: uncontrolled type 2 DM - insulin needles, DISPOSABLE, (BD INSULIN PEN NEEDLE UF) 31 gauge x 5/16" use once daily as directed - blood sugar diagnostic (BLOOD GLUCOSE TEST) test strip Test blood sugar(s) 2 times daily. Dx: uncontrolled type 2 DM Problem List As Of Date 03/01/2024 Noted Resolved History of gestational diabetes [Z86.32] 02/15/2014 Depressed mood [R45.89] 02/15/2014 Headache [R51] 02/15/2014 10/17/2015 Impaired glucose metabolism [R73.09] 02/15/2014 10/17/2015 Family history of ovarian cancer [Z80.41] 06/13/2014 BMI 38.0-38.9,adult [Z68.38] 06/28/2014 Migraine headache [G43.909] 09/21/2014 Functional diarrhea [K59.1] 09/19/2015 Uncontrolled type 2 diabetes mellitus without c*10/17/2015 Rectal bleeding [K62.5] 05/14/2017 LUQ abdominal pain [R10.12] 05/14/2017 Altered bowel habits [R19.4] 05/14/2017 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] 09/09/2019 Diabetes (HCC) [E11.9] 09/09/2019 Hyperlipidemia LDL goal <100 [E78.5] 09/09/2019 TMJ tenderness, right [M26.621] 09/13/2019 Abnormal Pap smear of cervix [R87.619] Left knee pain [M25.562] 05/02/2023 Weight loss due to medication [R63.4, T50.905A] 11/11/2023 Encounter Status:Closed by AKIL LIU on 04/21/24 [facility] CNOVon 02-27-2024 CNOV Office Visit (FAMPWS ) -------- CANDELARIA GRANT ([id number]) 1985 F Date Time Provider Department 02/27/24 7:00 AM POLLY GRANT During your visit today, we recorded the following information about you: Pulse Respiration Blood pressure Weight 86/minute 14/minute 136/80 85.9 kg Polly Grant, KATRIN.GUM COOK 02/27/2024 8:55 AM Signed Chief Complaint No chief complaint on file. HPI Candelaria Grant is a 38 year old female who presents here today for Above Complaints. Candelaria is an established patient of Dr. Gerardo Do. Concerns today... GERD -- Saw Dr. Linder on Friday for this. They increased protonix to 40 mg BID and started Carafate. (Pt reports not starting carafate yet d/t unable to get to pharmacy to pick it up yet). Placed consult for general surgery for EGD at this visit as well. Discussed symptoms likely exacerbated by Mounjaro on Friday. Pt has been on Mounjaro for quite some time. Her dosage was adjusted back in September from 15 mg to 10 mg weekly. She then switched back to the 15 mg in November. DM is very stable, with last HgA1c on 01/11 being 5.6 Blood sugars at home have been stable and at goal. Willing to decrease mounjaro if needed. Weight loss has been steady and stable without concern, pt is already at goal weight. Past medical history, appointments, medications, allergies reviewed. Previous Medical History PAST MEDICAL HISTORY Diagnosis Date Abnormal Pap smear of cervix ascus cannot rule out high grade Diabetes mellitus type 2 in obese Gastroesophageal reflux disease without esophagitis Globus sensation Migraine headache Obesity Previous Surgical History PAST SURGICAL HISTORY Procedure Laterality Date SECTION HX 03/24/2013 CHOLECYSTECTOMY HX INSERTION OF IUD 2017 Mirena IUD removed 10/20/2020 KYLEENA IUD 10/20/2020 LYSIS OF ADHESIONS 07/04/2023 NEXPLANON INSERTION 05/10/2013 OSTECTOMY CALCANEUS SPUR W/WO PLNTAR FASCIAL RLS Left Dr. Jimenez REPAIR OF NASAL SEPTUM SALPINGECTOMY Bilateral 07/04/2023 Laparoscopic B/L Salpingectomy at [facility]-Dr. Condon Family History FAMILY HISTORY Problem Relation Age of Onset No Known Problems Mother Cancer Father pancreatic and renal. Anesthesia Problems Father slow emergence, PONV No Known Problems Brother No Known Problems Son Breast Cancer Maternal Aunt Cervical Cancer Paternal Aunt x2- and one cousin No Known Problems Maternal Grandmother Diabetes Maternal Grandfather Diabetes Paternal Grandfather other (lymphomia) Other maternal cousin other (leukemia) Other cousin Patient Allergies ALLERGIES Allergen Reactions Macadamia Nut Oil Hives, Swelling, Shortness of Breath Meloxicam Intolerance Headache Current Medications Current Outpatient Medications on File Prior to Visit Medication Sig pantoprazole DR (PROTONIX) 40 mg tablet Take 1 tablet by mouth two times a day. Take on empty stomach, 1/2 hr before meal. sucralfate (CARAFATE) 1 gram tablet Take 1 tablet by mouth before meals and at bedtime. Phentermine HCl 37.5 mg capsule Take 1 capsule by mouth once daily for 90 days. BMI 30.57 tirzepatide (MOUNJARO) 15 mg/0.5 mL pen injector Inject 15 mg subcutaneously one time a week. EPINEPHrine (EPIPEN) 0.3 mg/0.3 mL auto-injector Use for allergic reaction nystatin (MYCOSTATIN) 100,000 unit/mL suspension 5 mL four times daily. Swish/swallow or swish/expectorate metFORMIN ER (GLUCOPHAGE XR) 500 mg 24 hr tablet Take 1 tablet by mouth two times a day. colestipol (COLESTID) 1 gram tablet Take 1 tablet by mouth once daily. For Diarrhea Post Gall Bladder Removal levonorgestrel (KYLEENA) 17.5 mcg/24 hrs (5 yrs) 19.5 mg IUD 1 Each by INTRAUTERINE route one time only. flash glucose sensor (FREESTYLE EMILIA 14 DAY SENSOR) kit Apply and use as directed. Dx: Uncontrolled type 2 diabetes without insulin. flash glucose scanning reader (FREESTYLE EMILIA 3 READER) 1 Each once daily. Phenyleph-Shark Gst-Jzra-Bfg (HEMORRHOIDAL) 0.25-3-12 % crea by RECTAL route twice daily. Lancets lancets Test blood sugar(s)2 times daily. Dx: uncontrolled type 2 DM insulin needles, DISPOSABLE, (BD INSULIN PEN NEEDLE UF) 31 gauge x 5/16" use once daily as directed blood sugar diagnostic (BLOOD GLUCOSE TEST) test strip Test blood sugar(s) 2 times daily. Dx: uncontrolled type 2 DM No current facility-administered medications on file prior to visit. Social History Social History Tobacco Use Smoking status: Never Smokeless tobacco: Never Vaping Use Vaping status: Never Used Substance Use Topics Alcohol use: Yes Comment: Rarely Drug use: No REVIEW OF SYSTEMS: as above Reviewed relevant PMHx, PSHx, Social Hx, current medications and allergies. Review of Symptoms REVIEW OF SYSTEMS See HPI. EXAM: BP 136/80 (BP Site: Left Arm, BP Position: Sitting, BP Cuff Si (more content not included)... Normal [facility] CNOVon 02-24-2024 CNOV Office Visit (FAMPWS ) -------- ALEKSANDRA GRANTSHARITA Marsh ([id number]) 1985 F Date Time Provider Department 02/24/24 4:40 PM [facility] During your visit today, we recorded the following information about you: Pulse Respiration Blood pressure Weight 80/minute 16/minute 142/90 86.1 kg Teo Linder MD 02/24/2024 5:11 PM Signed Chief Complaint Patient presents with: Reflux HPI Candelaria Callahansandhya is a 38 year old female who presents here today for a same day visit. Established pt of Dr. Carrlilo here today for an acute visit. Pt here today with complaints of worsening reflux symptoms. Pt was seen on 01/23/24 by Kevin Witt CNP and complained of globus sensation. Noted this worsening after having Moujaro dosage increased, accompanied by eating [employer]onal[employer]. The next morning after eating [employer]onal[employer] she woke up with reflux and rotten egg taste in her mouth. Pt was started back on Protonix 40 mg once daily at that visit. During her visit trino Brown noted in the past she'd been on Protonix, but medication was d/c and wondering if she should be taking something. Since last week she's been waking up in the morning with increased reflux symptoms. Reports symptoms of chest hurting, burning, feels like something is coming up and she wants to throw up but she doesn't. Feels sick to her stomach and nauseas. Pt states when she wakes up in the morning it feels like "lava" coming up. Also is having decreased appetite and if she does eat something she experiences bloating. Pt is currently on Mounjaro 15 mg once weekly and Adipex 37.5 mg once daily. Was taking Protonix 40 mg and felt it was helping until . Pt has been on Mounjaro for quite some time. Her dosage was adjusted back in September from 15 mg to 10 mg weekly. She then switched back to the 15 mg in November. Unable to tell if this makes it worse. Has not had anyone ever look in her stomach. Was made aware medications can cause gastric emptying issues. Past medical history, appointments, medications, allergies reviewed. Previous Medical History PAST MEDICAL HISTORY Diagnosis Date Abnormal Pap smear of cervix ascus cannot rule out high grade Diabetes mellitus type 2 in obese Migraine headache Obesity Previous Surgical History PAST SURGICAL HISTORY Procedure Laterality Date SECTION HX 03/24/2013 CHOLECYSTECTOMY HX INSERTION OF IUD 2017 Mirena IUD removed 10/20/2020 KYLEENA IUD 10/20/2020 LYSIS OF ADHESIONS 07/04/2023 NEXPLANON INSERTION 05/10/2013 OSTECTOMY CALCANEUS SPUR W/WO PLNTAR FASCIAL RLS Left Dr. Jimenez REPAIR OF NASAL SEPTUM SALPINGECTOMY Bilateral 07/04/2023 Laparoscopic B/L Salpingectomy at [facility]-Dr. Condon Family History FAMILY HISTORY Problem Relation Age of Onset No Known Problems Mother Cancer Father pancreatic and renal. Anesthesia Problems Father slow emergence, PONV No Known Problems Brother No Known Problems Son Breast Cancer Maternal Aunt Cervical Cancer Paternal Aunt x2- and one cousin No Known Problems Maternal Grandmother Diabetes Maternal Grandfather Diabetes Paternal Grandfather other (lymphomia) Other maternal cousin other (leukemia) Other cousin Patient Allergies ALLERGIES Allergen Reactions Macadamia Nut Oil Hives, Swelling, Shortness of Breath Meloxicam Intolerance Headache Current Medications Current Outpatient Medications on File Prior to Visit Medication Sig Phentermine HCl 37.5 mg capsule Take 1 capsule by mouth once daily for 90 days. BMI 30.57 tirzepatide (MOUNJARO) 15 mg/0.5 mL pen injector Inject 15 mg subcutaneously one time a week. EPINEPHrine (EPIPEN) 0.3 mg/0.3 mL auto-injector Use for allergic reaction pantoprazole DR (PROTONIX) 40 mg tablet Take 1 tablet by mouth daily before breakfast. Take on empty stomach, 1/2 hr before meal. nystatin (MYCOSTATIN) 100,000 unit/mL suspension 5 mL four times daily. Swish/swallow or swish/expectorate metFORMIN ER (GLUCOPHAGE XR) 500 mg 24 hr tablet Take 1 tablet by mouth two times a day. colestipol (COLESTID) 1 gram tablet Take 1 tablet by mouth once daily. For Diarrhea Post Gall Bladder Removal levonorgestrel (KYLEENA) 17.5 mcg/24 hrs (5 yrs) 19.5 mg IUD 1 Each by INTRAUTERINE route one time only. flash glucose sensor (FREESTYLE EMILIA 14 DAY SENSOR) kit Apply and use as directed. Dx: Uncontrolled type 2 diabetes without insulin. flash glucose scanning reader (FREESTYLE EMILIA 3 READER) 1 Each once daily. Phenyleph-Shark Hef-Xmoa-Mdp (HEMORRHOIDAL) 0.25-3-12 % crea by RECTAL route twice daily. Lancets lancets Test blood sugar(s)2 times daily. Dx: uncontrolled type 2 DM insulin needles, DISPOSABLE, (BD INSULIN PEN NEEDLE UF) 31 gauge x 5/16" use once daily as directed blood sugar diagnostic (BLOOD GLUCOSE TEST) test strip Test blood sugar(s) 2 times daily. Dx: uncontrolled ty (more content not included)... [facility] CANDELARIA GRANT ([id number]) 1985 F Date Time Provider Department 02/10/24 GIGI CARRILLO During your visit today, we recorded the following information about you: Yamile WashingtonNHUNG 02/10/2024 10:01 AM Signed Electronic PA completed for mounajro 15mg. If you click on the med and review the denial you can review the answered questions. They were provided this this was covered previously and also provided the medicines tried.This was denied. See PA response from insurance ote from payer: Must meet all initial clinical criteria for subsequent authorizations. Coverage is provided when the member meets all the followin. Member has a history of at least 120 days of therapy with THREE preferred medications [ONE of the 120 day trials must be Byetta (5 mcg and 10 mcg), Victoza (18 MG/3 ML PEN)(Brand name is preferred by your plan) or Trulicity (0.75 mg, 1.5 mg, 3 mg and 4.5 mg)], which include but are not limited to: Farxiga 5 and 10 mg (Brand name is preferred by your plan), Glimepiride, Glipizide, Invokana 100 mg and 300 mg, Januvia, Jardiance 10 and 25 mg and Metformin IR and ER (generic of Glucophage XR) and, 2. Member has documented adherence and appropriate dose escalation (must achieve maximum recommended dose or document that maximum recommended dose is not tolerated or is clinically inappropriate). The member is missing one trial with a preferred drug at max or max tolerated dose for 120 days. The [facility] Policy for Medical Necessity as posted on the [facility] website and [place] Unified Preferred Drug List criteria were reviewed and per [place] Administrative Code Rule 5160-1-01 (C) and (B), a medically necessary service must include: generally accepted standards of medical practice, be clinically appropriate in administration, treatment and outcome and be the lowest cost alternative to effectively treat the condition. Please contact your provider to assist you with other treatment options that might be covered under your benefit package, or other services that might be available through the community. Payer: [facility] Electronic appeal: Not supported View History Notes Time User Attachment Attachment received from payer. 02/10/2024 9:17 AM Cchs, Rx Priorautanahi In Document Pharmacy Benefits Open Encounter CANDELARIA GRANT - MEDICAID ([facility]) Covered: Retail, Mail Order Unknown: Specialty, Long-Term Care BIN: [id number] : 1985 Group ID: PCN: [id number] Legal sex: F Group name: Address: [address] [address] Medication Being Authorized tirzepatide (MOUNJARO) 15 mg/0.5 mL pen injector Inject 15 mg subcutaneously one time a week. Dispense: 2 mL Refills: 2 Start: 02/09/2024 End: 05/09/2024 Class: Normal This order has been released to its destination. To be filled at: [facility] [address] [place] [phone] [facility] [phone] 181 Prior Authorization History for tirzepatide (MOUNJARO) 15 mg/0.5 mL pen injector 7 months ago Approved Gigi Carrillo DO 02/11/2024 6:51 AM Signed Please inform patient of below DO Stacia Hu [place], [place] 02/11/2024 12:47 PM Addendum Resubmitted PA to see if we can get re-approved CLARIBEL Ni [place], MA 02/11/2024 2:11 PM Signed Patient was notified was approved: Authorization number: [id number] Authorized from February 11, 2024 to February 09, 2025 Information received electronically from payer Gill Palomo MA Allergies As of Date: 02/10/2024 Noted Allergy Reaction MACADAMIA NUT OIL 04/08/2014 4 - Hives 7 - Swelling 12 - Shortness of Breath MELOXICAM 08/30/2015 5 - Intolerance Comments: Headache Date Reviewed: 02/08/2024 Reviewed by: Jaja Padron LPN - Fully Assessed Reason for Visit: Insurance Authorization [[id number]] Prescriptions as of 02/11/2024 - tirzepatide (MOUNJARO) 15 mg/0.5 mL pen injector Inject 15 mg subcutaneously one time a week. - EPINEPHrine (EPIPEN) 0.3 mg/0.3 mL auto-injector Use for allergic reaction - pantoprazole DR (PROTONIX) 40 mg tablet Take 1 tablet by mouth daily before breakfast. Take on empty stomach, 1/2 hr before meal. - nystatin (MYCOSTATIN) 100,000 unit/mL suspension 5 mL four times daily. Swish/swallow or swish/expectorate - Phentermine HCl 37.5 mg capsule Take 1 capsule by mouth once daily for 90 days. BMI 30.57 - metFORMIN ER (GLUCOPHAGE XR) 500 mg 24 hr tablet Take 1 tablet by mouth two times a day. - colestipol (COLESTID) 1 gram tablet Take 1 tablet by mouth once daily. For Diarrhea Post Gall Bladder Removal - levonorgestrel (KYLEENA) 17.5 mcg/24 hrs (5 yrs) 19.5 mg IUD 1 Each by INTRAUTERINE route one time only. - flash glucose sensor (FREESTYLE EMILIA 14 DAY SENSOR) kit Apply and use as directed. (more content not included)... Normal [facility] Culture, Throaton 02-09-2024 CUT Mixed normal zamzam. No Haemophilus, Streptococcus pneumoniae, beta-hemolytic Streptococcus or Staphylococcus aureus isolated. Bacteria Throat Cult NO Yeast isolated Normal [facility] Comment on above: Performed By: #### M 100.1000 #### [facility] [address] [place], [place], [id number] BACTERIAL VAGINOSIS NAATon 1 2023 Lactobacillus crispatus+gasseri+javi senii + Gardnerella vaginalis + Atopobium vaginae rRNA FAUSTINA+probe Ql (Vag fld) Not detected Normal Not detected [facility] Comment on above: Order Comment: Speci men Type: SWABOrdering Facility: [facility] Address: [address] [place] [address] Performed By: #### 3 6902-5, BVAMP ####[facility] [id number] [place] [address] [place] Bacteria Ur Culton 4 Bacteria identified Cx Nom (U) ORGANISM ID: 1 10,000 -<50,000 CFU/ml Normal urogenital zamzam Streptococcus agalactiae (Group B streptococcus) was identified in this specimen, which is clinically relevant if the individual is . Normal [facility] Comment on above: Performed By: #### 6 30-4 ####[facility] [id number] [place] [address] [place] C. trachomatis+N. gonorrhoea e DNA FAUSTINA+probe Ql (Unsp spec)on 02-08-2024 C. trachomatis rRNA FAUSTINA+probe Ql (Unsp spec) Not detected Normal Not detected [facility] Comment on above: Order Comment: Speci men Type: SWABOrdering Facility: [facility] Address: [address] [place] [address] Performed By: #### 3 6902-5, BVAMP ####[facility]IA [id number] [place] [address] [place] N. gonorrhoeae rRNA FAUSTINA+probe Ql (Unsp spec) Not detected Normal Not detected [facility] Comment on above: Order Comment: Speci men Type: SWABOrdering Facility: [facility] Address: [address] [place] [address] Performed By: #### 3 6902-5, BVAMP ####[facility]IA [id number] [place] [address] [place] MARCELO/TRICHOMONAS NAATon 1 2023 C. glabrata RNA FAUSTINA+probe Ql (Vag fld) Not detected Normal Not detected [facility] Comment on above: Order Comment: Speci men Type: SWABOrdering Facility: [facility] Address: [address] [place] [address] Performed By: #### C VTV ####[facility]IA [id number] [place] [address] [place] Marcelo sp DNA FAUSTINA+probe Ql (Vag fld) Not detected Normal Not detected [facility] Comment on above: Order Comment: Speci men Type: SWABOrdering Facility: [facility] Address: [address], [place] [address] Result Comment: The Marcelo species group target includes C. albicans, C. tropicalis, C. parapsilosis, and C. dubliniensis. Performed By: #### C VTV ####[facility] LABIA [id number] [address] OF [place] T. vaginalis DNA FAUSTINA+probe Ql (Unsp spec) Not detected Normal Not detected [facility] Comment on above: Order Comment: Speci men Type: SWABOrdering Facility: [facility] Address: [address] [place] [address] Performed By: #### C VTV ####[facility]CLIA [id number] [address] OF [facility] CNOVon 02-08-2024 CNOV Office Visit (UCWSTR ) -------- ALEKSANDRA GRANTSHARITA Marsh ([id number]) 1985 F Date Time Provider Department 02/08/24 2:15 PM JESSICA CHANDLER RUST During your visit today, we recorded the following information about you: Temperature Pulse Respiration Blood pressure 97.9 degrees 81/minute 18/minute 148/86 Weight 86 kg Jessica Chandler APRN.CNP 02/08/2024 2:54 PM Signed This note was created using Bloggerceriter. Subjective Candelaria Grant is a 38 year old female. 38 year old female with PMH migraine, DM, hyperlipidemia presents for possible UTI and concerns for sexually transmitted disease. Acute onset x 1 day +burning Denies N/V/D Denies fever or chills Denies vaginal discharge Denies vaginal bleeding LMP-a couple weeks ago IUD Presents stating she feels her current partner isn't being entirely truthful She was tested for STI's 02/02/24 Negative The history is provided by the patient. No english language learner teacher was used. UTI This is a new problem. The current episode started yesterday. The problem occurs every urination. The problem has not changed since onset.The quality of the pain is described as burning. The pain is at a severity of 5/10. There has been no fever. She is Sexually active. There is No history of pyelonephritis. Associated symptoms include urgency. Pertinent negatives include no chills, no sweats, no nausea, no vomiting, no discharge, no frequency, no hematuria, no hesitancy, no possible and no flank pain. She has tried nothing for the symptoms. Her past medical history does not include kidney stones, single kidney, urological procedure, recurrent UTIs, urinary stasis or catheterization. PAST MEDICAL HISTORY Diagnosis Date Abnormal Pap smear of cervix ascus cannot rule out high grade Diabetes mellitus type 2 in obese Migraine headache Obesity PAST SURGICAL HISTORY Procedure Laterality Date SECTION HX 03/24/2013 CHOLECYSTECTOMY HX INSERTION OF IUD 2016 Mirena IUD removed 10/20/2020 KYLEENA IUD 10/20/2020 LYSIS OF ADHESIONS 07/04/2023 NEXPLANON INSERTION 05/10/2013 OSTECTOMY CALCANEUS SPUR W/WO PLNTAR FASCIAL RLS Left Dr. Jimenez REPAIR OF NASAL SEPTUM SALPINGECTOMY Bilateral 07/04/2023 Laparoscopic B/L Salpingectomy at [facility]-Dr. Condon ALLERGIES Macadamia Nut Oil and Meloxicam MEDICATIONS EPINEPHrine (EPIPEN) 0.3 mg/0.3 mL auto-injector Use for allergic reaction pantoprazole DR (PROTONIX) 40 mg tablet Take 1 tablet by mouth daily before breakfast. Take on empty stomach, 1/2 hr before meal. nystatin (MYCOSTATIN) 100,000 unit/mL suspension 5 mL four times daily. Swish/swallow or swish/expectorate Phentermine HCl 37.5 mg capsule Take 1 capsule by mouth once daily for 90 days. BMI 30.57 metFORMIN ER (GLUCOPHAGE XR) 500 mg 24 hr tablet Take 1 tablet by mouth two times a day. tirzepatide (MOUNJARO) 15 mg/0.5 mL pen injector Inject 15 mg subcutaneously one time a week. colestipol (COLESTID) 1 gram tablet Take 1 tablet by mouth once daily. For Diarrhea Post Gall Bladder Removal levonorgestrel (KYLEENA) 17.5 mcg/24 hrs (5 yrs) 19.5 mg IUD 1 Each by INTRAUTERINE route one time only. flash glucose sensor (FREESTYLE EMILIA 14 DAY SENSOR) kit Apply and use as directed. Dx: Uncontrolled type 2 diabetes without insulin. flash glucose scanning reader (FREESTYLE EMILIA 3 READER) 1 Each once daily. Lancets lancets Test blood sugar(s)2 times daily. Dx: uncontrolled type 2 DM insulin needles, DISPOSABLE, (BD INSULIN PEN NEEDLE UF) 31 gauge x 5/16" use once daily as directed blood sugar diagnostic (BLOOD GLUCOSE TEST) test strip Test blood sugar(s) 2 times daily. Dx: uncontrolled type 2 DM Phenyleph-Shark Kar-Ddlk-Xhr (HEMORRHOIDAL) 0.25-3-12 % crea by RECTAL route twice daily. FAMILY HISTORY Problem Relation Age of Onset No Known Problems Mother Cancer Father pancreatic and renal. Anesthesia Problems Father slow emergence, PONV No Known Problems Brother No Known Problems Son Breast Cancer Maternal Aunt Cervical Cancer Paternal Aunt x2- and one cousin No Known Problems Maternal Grandmother Diabetes Maternal Grandfather Diabetes Paternal Grandfather other (lymphomia) Other maternal cousin other (leukemia) Other cousin Social History Tobacco Use Smoking status: Never Smokeless tobacco: Never Vaping Use Vaping status: Never Used Substance Use Topics Alcohol use: Yes Comment: Rarely Drug use: No Review of Systems Constitutional: Negative for chills, fatigue and fever. Eyes: Negative for pain, discharge and itching. Respiratory: Negative for apnea, cough, choking, chest tightness and shortness of breath. Cardiovascular: Negative for chest pain, palpitations and leg swelling. Gastrointestinal: Negative for abdominal pain, diarrhea, nausea and vomiting. Genitourinary: Positive for dysuria and urgency. (more content not included)... Normal [facility] UA DIP, URINE (POC)on 2023 BILIRUBIN UA (POCT) Negative Negative [facility] CLARITY UA (POCT) Clear [facility] COLOR UA (POCT) Yellow [facility] GLUCOSE UA (POCT) Negative Negative mg/dL [facility] Hemoglobin Ql (U) Negative Negative [facility] Interpretation and review of laboratory results Abnormal [facility] KETONE UA (POCT) Negative Negative mg/dL [facility] LEUKOCYTES UA (POCT) Negative Negative [facility] NITRITE UA (POCT) Negative Negative [facility] PH UA (POCT) 6.0 4.5 - 8.0 [facility] Protein Ql (U) 30 mg/dL Abnormal Negative [facility] SPECIFIC GRAVITY UA (POCT) >=1.030 1.005 - 1.030 [facility] UROBILINOGEN UA (POCT) 0.2 Normal E.U./dL [facility] Location:[address], [place], [place], [address] [place] [address] POINT OF CARE [facility] C. trachomatis+N. gonorrhoea e DNA FAUSTINA+probe Ql (Unsp spec)on 02-02-2024 C. trachomatis rRNA FAUSTINA+probe Ql (Unsp spec) Negative Normal Negative for Chlamydia trachomatis by amplificaton [facility] Comment on above: Order Comment: Speci men Type: SWABOrdering Facility: [facility] Address: [address] [place] [address] Performed By: #### 3 6902-5 ####[facility]CLIA [id number] [place] [address] [place] N. gonorrhoeae rRNA FAUSTINA+probe Ql (Unsp spec) Negative Normal Negative for Neisseria gonorrhoeae by amplification [facility] Comment on above: Order Comment: Speci men Type: SWABOrdering Facility: [facility] Address: [address] [place] [address] Performed By: #### 3 6902-5 ####[facility]CLIA [id number] [place] [address] [place] C. trachomatis rRNA FAUSTINA+probe Ql (Unsp spec) Negative Normal Negative for Chlamydia trachomatis by amplificaton [facility] Comment on above: Order Comment: Speci men Type: SWABOrdering Facility: [facility] Address: [address] [place] [address] Performed By: #### 3 6902-5, CVTV ####[facility]CLIA [id number] [place] [address] [place] N. gonorrhoeae rRNA FAUSTINA+probe Ql (Unsp spec) Negative Normal Negative for Neisseria gonorrhoeae by amplification [facility] Comment on above: Order Comment: Speci men Type: SWABOrdering Facility: [facility] Address: [address] [place] [address] Performed By: #### 3 6902-5, CVTV ####[facility]CLIA [id number] [place] [address] [place] MARCELO/TRICHOMONAS NAATon 1 04-03-2023 C. glabrata RNA FAUSTINA+probe Ql (Vag fld) Negative Normal Negative for Marcelo glabrata [facility] Comment on above: Order Comment: Speci men Type: SWABOrdering Facility: [facility] Address: [address] [place] [address] Performed By: #### 3 6902-5, CVTV ####[facility]CLIA [id number] [address] [place] Marcelo sp DNA FAUSTINA+probe Ql (Vag fld) Negative Normal Negative for Marcelo species [facility] Comment on above: Order Comment: Speci men Type: SWABOrdering Facility: [facility] Address: [address] [place] [address] Performed By: #### 3 6902-5, CVTV ####[facility]CLIA [id number] [address] [place] T. vaginalis DNA FAUSTINA+probe Ql (Unsp spec) Negative Normal Negative for Trichomonas vaginalis by amplification [facility] Comment on above: Order Comment: Speci men Type: SWABOrdering Facility: [facility] Address: [address] [place] [address] Performed By: #### 3 6902-5, CVTV ####[facility]CLIA [id number] [place] [address] [place] CN[facility] 02-02[facility]2024 [facility] CANDELARIA GRANT ([id number]) 1985 F Date Time Provider Department 02/02/24 6:15 PM MARIA R MARLEY RUST During your visit today, we recorded the following information about you: Temperature Pulse Respiration Blood pressure 97.6 degrees 84/minute 16/minute 126/84 Weight 89.1 kg Maria R Marley PA-C 02/02/2024 7:18 PM Signed This note was created using Bloggerceriter. Subjective Candelaria Grant is a 38 year old female. HPI Presents with a chief complaint of possible thrush. She has been treated off-and-on for thrush since October. She did have a swab in December which was positive for Marcelo. She is currently on fluconazole with a few tabs left and feels like it is coming back worse. She is a diabetic but A1c was 5.5 last. She uses a denture on the bottom but cleans it with the disinfectant tab and toothpaste. She denies recent illness. Denies using an inhaler. Patient also would like an STD test as she was told her boyfriend had to get treated for possible STD today. She is not sure what STD. She is not having any vaginal symptoms. Last menstrual cycle was last week. She has had a tubal ligation. She also has an IUD. Denies chance of . Review of Systems Constitutional: Negative. HENT: Mouth pain Respiratory: Negative. Cardiovascular: Negative. Gastrointestinal: Negative. Genitourinary: Negative. Musculoskeletal: Negative. All other systems reviewed and are negative. PAST MEDICAL HISTORY Diagnosis Date Abnormal Pap smear of cervix ascus cannot rule out high grade Diabetes mellitus type 2 in obese Migraine headache Obesity Current Outpatient Medications Medication Sig Dispense Refill fluconazole (DIFLUCAN) 100 mg tablet Take 2 tablets by mouth once daily for 1 day, THEN 1 tablet once daily for 14 days. 16 tablet 0 EPINEPHrine (EPIPEN) 0.3 mg/0.3 mL auto-injector Use for allergic reaction [address] (PROTONIX) 40 mg tablet Take 1 tablet by mouth daily before breakfast. Take on empty stomach, 1/2 hr before meal. 90 tablet 1 Phentermine HCl 37.5 mg capsule Take 1 capsule by mouth once daily for 90 days. BMI 30.57 30 capsule 0 metFORMIN ER (GLUCOPHAGE XR) 500 mg 24 hr tablet Take 1 tablet by mouth two times a day. 180 tablet 1 tirzepatide (MOUNJARO) 15 mg/0.5 mL pen injector Inject 15 mg subcutaneously one time a week. 2 mL 2 colestipol (COLESTID) 1 gram tablet Take 1 tablet by mouth once daily. For Diarrhea Post Gall Bladder Removal 90 tablet 1 levonorgestrel (KYLEENA) 17.5 mcg/24 hrs (5 yrs) 19.5 mg IUD 1 Each by INTRAUTERINE route one time only. flash glucose sensor (FREESTYLE EMILIA 14 DAY SENSOR) kit Apply and use as directed. Dx: Uncontrolled type 2 diabetes without insulin. 1 Kit 3 flash glucose scanning reader (FREESTYLE EMILIA 3 READER) 1 Each once daily. 1 Each 5 Lancets lancets Test blood sugar(s)2 times daily. Dx: uncontrolled type 2 DM 100 Each 11 insulin needles, DISPOSABLE, (BD INSULIN PEN NEEDLE UF) 31 gauge x 5/16" use once daily as directed 100 Each 1 blood sugar diagnostic (BLOOD GLUCOSE TEST) test strip Test blood sugar(s) 2 times daily. Dx: uncontrolled type 2 DM 50 Strip 11 nystatin (MYCOSTATIN) 100,000 unit/mL suspension 5 mL four times daily. Swish/swallow or swish/expectorate (Patient not taking: Reported on 02/02/2024) 200 mL 0 Phenyleph-Shark Ddi-Reyv-Krq (HEMORRHOIDAL) 0.25-3-12 % crea by RECTAL route twice daily. 52 g 1 No current facility-administered medications for this visit. PAST SURGICAL HISTORY Procedure Laterality Date SECTION HX 03/24/2013 CHOLECYSTECTOMY HX INSERTION OF IUD 2017 Mirena IUD removed 10/20/2020 KYLEENA IUD 10/20/2020 LYSIS OF ADHESIONS 07/04/2023 NEXPLANON INSERTION 05/10/2013 OSTECTOMY CALCANEUS SPUR W/WO PLNTAR FASCIAL RLS Left Dr. Suppan REPAIR OF NASAL SEPTUM SALPINGECTOMY Bilateral 07/04/2023 Laparoscopic B/L Salpingectomy at [facility]-Dr. Condon FAMILY HISTORY Problem Relation Age of Onset No Known Problems Mother Cancer Father pancreatic and renal. Anesthesia Problems Father slow emergence, PONV No Known Problems Brother No Known Problems Son Breast Cancer Maternal Aunt Cervical Cancer Paternal Aunt x2- and one cousin No Known Problems Maternal Grandmother Diabetes Maternal Grandfather Diabetes Paternal Grandfather other (lymphomia) Other maternal cousin other (leukemia) Other cousin Social History Tobacco Use Smoking status: Never Smokeless tobacco: Never Vaping Use Vaping status: Never Used Substance Use Topics Alcohol use: Yes Comment: Rarely Drug use: No Objective BP 126/84 Pulse 84 Temp 36.4 ?C (97.6 ?F) Resp 16 Wt 89.1 kg (196 lb 6.9 oz) LMP 10/11/2023 (Approximate) SpO2 99% BMI 29.01 kg/m? Physical Exam Vitals reviewed. Constitutional: Appearance: Normal appearance (more content not included)... Normal [facility] CBC W Auto Differential pane l (Bld)on 01-12-2024 Basophils (Bld) [#/Vol] 0.12 10*3/uL [facility] Basophils/100 WBC (Bld) 1.2 % [facility] Differential cell count method Nom (Bld) Auto [facility] Eosinophils (Bld) [#/Vol] 1.01 10*3/uL [facility] Eosinophils/100 WBC (Bld) 10.4 % [facility] Erythrocyte distribution width (RBC) [Ratio] 12.0 % 11.5 - 15.0 % [facility] Hematocrit (Bld) [Volume fraction] 41.1 % 36.0 - 46.0 % [facility] Hemoglobin (Bld) [Mass/Vol] 13.9 g/dL 11.5 - 15.5 g/dL [facility] Immature granulocytes (Bld) [#/Vol] NINF [facility] Immature granulocytes/100 WBC (Bld) 0.1 % [facility] Interpretation and review of laboratory results Abnormal [facility] Lymphocytes (Bld) [#/Vol] 2.40 10*3/uL [facility] Lymphocytes/100 WBC (Bld) 24.7 % [facility] MCH (RBC) [Entitic mass] 30.3 pg 26.0 - 34.0 pg [facility] MCHC (RBC) [Mass/Vol] 33.8 g/dL 30.5 - 36.0 g/dL [facility] MCV (RBC) [Entitic vol] 89.7 fL 80.0 - 100.0 fL [facility] Monocytes (Bld) [#/Vol] 0.49 10*3/uL NINF [facility] Monocytes/100 WBC (Bld) 5.0 % [facility] Neutrophils (Bld) [#/Vol] 5.68 10*3/uL [facility] Neutrophils/100 WBC (Bld) 58.6 % [facility] Nucleated RBC (Bld) [#/Vol] NINF [facility] Nucleated RBC/100 WBC (Bld) [Ratio] 0.0 % /100 WBC [facility] Platelet mean volume (Bld) [Entitic vol] 10.3 fL 9.0 - 12.7 fL [facility] Platelets (Bld) [#/Vol] 279 10*3/uL [facility] RBC (Bld) [#/Vol] 4.58 10*6/uL 3.90 - 5.2 0 m/uL [facility] WBC (Bld) [#/Vol] 9.71 10*3/uL [facility] Cobalamin (Vitamin B12) [Mas s/Vol]on 01-12-2024 Interpretation and review of laboratory results Normal [facility] Comprehensive metabolic 2000 panelon 01-12-2024 Albumin [Mass/Vol] 4.5 g/dL 3.9 - 4.9 g/dL [facility] ALP [Catalytic activity/Vol] 71 U/L 34 - 123 U/L [facility] ALT [Catalytic activity/Vol] 14 U/L 7 - 38 U/L [facility] Anion gap [Moles/Vol] 12 mmol/L 8 - 15 mmol/L [facility] AST [Catalytic activity/Vol] 13 U/L 13 - 35 U/L [facility] Bilirubin [Mass/Vol] 0.4 mg/dL 0.2 - 1 .3 mg/dL [facility] Calcium [Mass/Vol] 9.8 mg/dL 8.5 - 10. 2 mg/dL [facility] Chloride [Moles/Vol] 105 mmol/L 98 - 10 7 mmol/L [facility] CO2 [Moles/Vol] 24 mmol/L 22 - 30 mmol/L [facility] Creatinine [Mass/Vol] 0.68 mg/dL 0.58 - 0.96 mg/dL [facility] GFR/1.73 sq M.predicted among non-blacks MDRD (S/P/Bld) [Vol rate/Area] 114 mL/min/{1.73_m2} - PINF [facility] Comment on above: Estimated Glomerular Filtration Rate (eGFR) is calculated using the 2020 CKD-EPI creatinine equation. This equation utilizes serum creatinine, sex, and age as parameters. The creatinine assay has traceable calibration to isotope dilution-mass spectrometry. Refer to KDIGO guidelines for clinical interpretation. In patients with unstable renal function, e.g. those with acute kidney injury, the eGFR may not accurately reflect actual GFR. Glucose [Mass/Vol] 128 mg/dL High 74 - 99 mg/dL [facility] Comment on above: The [place] Diab[employer] [place] Association (ADA) provides guidance for cutoff values for fasting glucose and random glucose. The ADA defines fasting as no caloric intake for at least 8 hours. Fasting plasma glucose results between 100 to 125 mg/dL indicate increased risk for diabetes (prediabetes). Fasting plasma glucose results greater than or equal to 126 mg/dL meet the criteria for diagnosis of diabetes. In the absence of unequivocal hyperglycemia, results should be confirmed by repeat testing. In a patient with classic symptoms of hyperglycemia or hyperglycemic crisis, random plasma glucose results greater than or equal to 200 mg/dL meet the criteria for diagnosis of diabetes. Reference: Standards of Medical Care in Diabetes 2016, [place] [employer]. Diabetes Care. 2016.39(Suppl 1). Interpretation and review of laboratory results Abnormal [facility] Potassium [Moles/Vol] 3.8 mmol/L 3.7 - 5.1 mmol/L [facility] Protein [Mass/Vol] 7.7 g/dL 6.3 - 8.0 g/dL [facility] Sodium [Moles/Vol] 141 mmol/L 136 - 144 mmol/L [facility] Urea nitrogen [Mass/Vol] 8 mg/dL 7 - 21 mg/dL [facility] MAGNESIUMon 01-12-2024 Magnesium [Mass/Vol] 2.0 mg/dL 1.7 - 2 .3 mg/dL [facility] Magnesium [Mass/Vol]on 01-11 Interpretation and review of laboratory results Normal [facility] No Panel Informationon 01-11 [facility] URINALYSIS, REFLEX MICROSCOP ICon 01-12-2024 Bacteria uL 3011.1 uL High Negative [facility] Bilirubin Ql (U) 1+ Abnormal Negative [facility] Comment on above: Suggest correlation with clinical findings and serum bilirubin if clinically indicated. Calcium Oxalate Crystals Many Abnormal None Seen /HPF [facility] Clarity (Unsp spec) Cloudy Abnormal Clear [facility] Color (U) Dark Yellow Abnormal Yellow [facility] Epithelial cells LM.HPF (Urine sed) [#/Area] Moderate /HPF [facility] Glucose Test strip (U) [Mass/Vol] Trace Abnormal Negative [facility] Hemoglobin Ql (U) Negative Negative [facility] Hyaline casts (Urine sed) [#/Area] 4-10 /LPF Abnormal 0 /LPF [facility] Interpretation and review of laboratory results Abnormal [facility] Ketones Ql (U) Trace Abnormal Negative [facility] Leukocyte esterase Test strip Ql (U) Negative Negative [facility] Nitrite Ql (U) Negative Negative [facility] pH (U) 5.5 [pH] NINF - 8.5 [facility] Protein (U) [Mass/Vol] 2+ Abnormal Negative [facility] RBC LM.HPF (Urine sed) [#/Area] 3-5 /HPF Abnormal 0-2 /HPF [facility] Specific gravity (U) [Rel density] 1.036 High 1.005 - 1.030 [facility] Urobilinogen Ql (U) 0.2 EU/dL 0.2-1.0 EU/dL [facility] WBC LM.HPF (Urine sed) [#/Area] 0-5 /HPF 0-5 /HPF [facility] This test was venu munoz and its performance characteristics determined by [facility]'s [facility] [place] ([facility]). It has not been cleared or approved by the FDA. [facility] is regulated under CLIA as qualified to perform high-complexity testing. This test is used for clinical purposes. It should not be regarded as investigational or for research. [facility] VITAMIN B12on 01-12-2024 Cobalamin (Vitamin B12) [Mass/Vol] 409 pg/mL 232 - 1245 pg/mL [facility] No Panel Informationon 11-20 IMPRESSION: No acute fracture seen. Environmental Attorney: VINEET Transcribe Date/Time: Nov 21 2023 11:51A Dictated by : NEIDA MORRISON MD This examination was interpreted and the report reviewed and electronically signed by: NEIDA MORRISON MD on Nov 21 2023 12:03PM [facility] DIVISION OF RADIOLOGY Radiology Study observation (narrative) [facility] No Panel InformationOrdered By: [facility] Provider on 11-21-2023 [facility] XR Humerus - right AP and La teralon 11-21-2023 * * *Final Report* * * DATE OF EXAM: Nov 21 2023 11:47AM [id number] - XR HUMERUS 2V AP/LAT RT / PROCEDURE REASON: multiple diagnoses * * * * Physician Interpretation * * * * EXAM TITLE: XR FOREARM 2V AP/LAT RT, XR HUMERUS 2V AP/LAT RT EXAM DATE/TIME: 11/21/2023 11:47 AM COMPARISON: None. CLINICAL INDICATION/HISTORY: Injury TECHNIQUE: AP and lateral views of the right humerus, radius and ulna are presented. FINDINGS: No acute fractures demonstrated in the right humerus, radius or ulna. There is no significant soft tissue swelling. DIVISION OF RADIOLOGY Provider, [facility] - 11/21/2023 * * *Final Report* * * DATE OF EXAM: Nov 21 2023 11:47AM WOX [id number] - XR HUMERUS 2V AP/LAT RT / PROCEDURE REASON: multiple diagnoses * * * * Physician Interpretation * * * * EXAM TITLE: XR FOREARM 2V AP/LAT RT, XR HUMERUS 2V AP/LAT RT EXAM DATE/TIME: 11/21/2023 11:47 AM COMPARISON: None. CLINICAL INDICATION/HISTORY: Injury TECHNIQUE: AP and lateral views of the right humerus, radius and ulna are presented. FINDINGS: No acute fractures demonstrated in the right humerus, radius or ulna. There is no significant soft tissue swelling. IMPRESSION IMPRESSION: No acute fracture seen. Environmental Attorney: VINEET Transcribe Date/Time: Nov 21 2023 11:51A Dictated by : NEIDA MORRISON MD This examination was interpreted and the report reviewed and electronically signed by: NEIDA MORRISON MD on Nov 21 2023 12:03PM [facility] XR Radius and Ulna - right A P and Lateralon 11-21-2023 * * *Final Report* * * DATE OF EXAM: Nov 21 2023 11:47AM [id number] - XR FOREARM 2V AP/LAT RT / PROCEDURE REASON: multiple diagnoses * * * * Physician Interpretation * * * * EXAM TITLE: XR FOREARM 2V AP/LAT RT, XR HUMERUS 2V AP/LAT RT EXAM DATE/TIME: 11/21/2023 11:47 AM COMPARISON: None. CLINICAL INDICATION/HISTORY: Injury TECHNIQUE: AP and lateral views of the right humerus, radius and ulna are presented. FINDINGS: No acute fractures demonstrated in the right humerus, radius or ulna. There is no significant soft tissue swelling. DIVISION OF RADIOLOGY Provider, [facility] - 11/21/2023 * * *Final Report* * * DATE OF EXAM: Nov 21 2023 11:47AM WOX [id number] - XR FOREARM 2V AP/LAT RT / PROCEDURE REASON: multiple diagnoses * * * * Physician Interpretation * * * * EXAM TITLE: XR FOREARM 2V AP/LAT RT, XR HUMERUS 2V AP/LAT RT EXAM DATE/TIME: 11/21/2023 11:47 AM COMPARISON: None. CLINICAL INDICATION/HISTORY: Injury TECHNIQUE: AP and lateral views of the right humerus, radius and ulna are presented. FINDINGS: No acute fractures demonstrated in the right humerus, radius or ulna. There is no significant soft tissue swelling. IMPRESSION IMPRESSION: No acute fracture seen. Environmental Attorney: PSCB Transcribe Date/Time: Nov 21 2023 11:51A Dictated by : NEIDA MORRISON MD This examination was interpreted and the report reviewed and electronically signed by: NEIDA MORRISON MD on Nov 21 2023 12:03PM [facility] CT HEAD OR BRAIN W/O CONTRAS Ton 11-16-2023 CT HEAD OR BRAIN W/O CONTRAST ORIGINAL EXAMINATION: CT OF THE HEAD WITHOUT CONTRAST 11/16/2023 5:32 pm TECHNIQUE: CT of the head was performed without the administration of intravenous contrast. Automated exposure control, iterative reconstruction, and/or weight based adjustment of the mA/kV was utilized to reduce the radiation dose to as low as reasonably achievable. COMPARISON: CT head November 24, 2019 HISTORY: ORDERING SYSTEM PROVIDED HISTORY: Reason for Exam: head trauma FINDINGS: BRAIN/VENTRICLES: There is no acute intracranial hemorrhage, mass effect or midline shift. No abnormal extra-axial fluid collection. The montaño-white differentiation is maintained without evidence of an acute infarct. There is no evidence of hydrocephalus. ORBITS: The visualized portion of the orbits demonstrate no acute abnormality. SINUSES: The visualized paranasal sinuses and mastoid air cells demonstrate no acute abnormality. SOFT TISSUES/SKULL: No acute abnormality of the visualized skull. Mild right frontal soft tissue swelling. IMPRESSION: No acute intracranial abnormality. Interpreted by: Peter Szymanski Preliminary Report By: Peter Szymanski Electronically signed By Peter Szymanski Dictated Date: 11/16/2023 5:40:52 PM Prelim Date: 11/16/2023 5:42:37 PM Sign Date: 11/16/2023 5:42:37 PM Ordering Provider: DONALDO VILLAGOMEZ [facility]) XR SHOULDER MINIMUM 2 VIEWS RIGHTon 11-16-2023 XR SHOULDER MINIMUM 2 VIEWS RIGHT ORIGINAL EXAMINATION: TWO XRAY VIEWS OF THE RIGHT SHOULDER 11/16/2023 5:32 pm COMPARISON: None. HISTORY: ORDERING SYSTEM PROVIDED HISTORY: Reason for Exam: trauma FINDINGS: No fracture or dislocation. IMPRESSION: No fracture or dislocation. Interpreted by: Peter Szymanski Preliminary Report By: Peter Szymanski Electronically signed By Peter Szymanski Dictated Date: 11/16/2023 5:40:13 PM Prelim Date: 11/16/2023 5:40:46 PM Sign Date: 11/16/2023 5:40:46 PM Ordering Provider: DONALDO VILLAGOMEZ [facility]) Rosanna 11-10-2023 KRISS Telephone ([employer]) -------- CANDELARIA GRANT ([id number]) 1985 F Date Time Provider Department 11/10/23 SAVI MARROQUIN During your visit today, we recorded the following information about you: Savi Marroquin PA-C 11/10/2023 12:11 PM Signed Spoke to the patient in regards to stopping her monjaro one week prior to surgery scheduled with Dr Estevez on 11-18-25. Savi Marroquin PA-C Allergies As of Date: 11/10/2023 Noted Allergy Reaction MACADAMIA NUT OIL 04/08/2014 4 - Hives 7 - Swelling 12 - Shortness of Breath MELOXICAM 08/30/2015 5 - Intolerance Comments: Headache Date Reviewed: 10/29/2023 Reviewed by: Kindra Felix, WILLIAM - Fully Assessed Prescriptions as of 11/10/2023 - Phentermine HCl 37.5 mg capsule Take 1 capsule by mouth once daily for 90 days. BMI 30.57 - colestipol (COLESTID) 1 gram tablet Take 1 tablet by mouth once daily. For Diarrhea Post Gall Bladder Removal - Brompheniramine-Pseudoep h-DM (BROMFED DM) 2-30-10 mg/5 mL syrup Take 5 mL by mouth four times a day as needed. - naproxen (NAPROSYN) 500 mg tablet Take 1 tablet by mouth two times a day as needed (for pain/inflammation). Take with food. - norethindrone (AYGESTIN) 5 mg tablet Take 1 tablet TID until bleeding stops, the BID x 3 days, the daily x 3 days. - pantoprazole DR (PROTONIX) 40 mg tablet Take 1 tablet by mouth daily before breakfast. Take on empty stomach, 1/2 hr before meal. - famotidine (PEPCID) 40 mg tablet Take 1 tablet by mouth as needed. - tirzepatide (MOUNJARO) 10 mg/0.5 mL pen injector Inject 10 mg subcutaneously one time a week. - metFORMIN ER (GLUCOPHAGE XR) 500 mg 24 hr tablet Take 1 tablet by mouth two times a day. - levonorgestrel (KYLEENA) 17.5 mcg/24 hrs (5 yrs) 19.5 mg IUD 1 Each by INTRAUTERINE route one time only. - flash glucose sensor (HealthQxSTYLE EMILIA 14 DAY SENSOR) kit Apply and use as directed. Dx: Uncontrolled type 2 diabetes without insulin. - flash glucose scanning reader ([employer] EMILIA 3 READER) 1 Each once daily. - Phenyleph-Shark Fwa-Auva-Fxn (HEMORRHOIDAL) 0.25-3-12 % crea by RECTAL route twice daily. - EPINEPHrine (EPIPEN) 0.3 mg/0.3 mL auto-injector Use for allergic reaction - Lancets lancets Test blood sugar(s)2 times daily. Dx: uncontrolled type 2 DM - insulin needles, DISPOSABLE, (BD INSULIN PEN NEEDLE UF) 31 gauge x 5/16" use once daily as directed - blood sugar diagnostic (BLOOD GLUCOSE TEST) test strip Test blood sugar(s) 2 times daily. Dx: uncontrolled type 2 DM Problem List As Of Date 11/10/2023 Noted Resolved History of gestational diabetes [Z86.32] 02/15/2014 Depressed mood [R45.89] 02/15/2014 Headache [R51] 02/15/2014 10/17/2015 Impaired glucose metabolism [R73.09] 02/15/2014 10/17/2015 Family history of ovarian cancer [Z80.41] 06/13/2014 BMI 38.0-38.9,adult [Z68.38] 06/28/2014 Migraine headache [G43.909] 09/21/2014 Functional diarrhea [K59.1] 09/19/2015 Uncontrolled type 2 diabetes mellitus without c*10/17/2015 Rectal bleeding [K62.5] 05/14/2017 LUQ abdominal pain [R10.12] 05/14/2017 Altered bowel habits [R19.4] 05/14/2017 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] 09/09/2019 Uncontrolled type 2 diabetes mellitus with hype*09/09/2019 Hyperlipidemia LDL goal <100 [E78.5] 09/09/2019 TMJ tenderness, right [M26.621] 09/13/2019 Abnormal Pap smear of cervix [R87.619] Left knee pain [M25.562] 05/02/2023 Encounter Status:Closed by SAVI MARROQUIN on 11/10/23 [facility] STREP A MOLECULAR (POC)on Procedural Control Valid [facility] Strep A (POCT) Negative Negative [facility] CT Abdomen and Pelvis W cont rast Kendrick 10-23-2023 IMPRESSION: No acute abnormalities identified in the abdomen or pelvis. Environmental Attorney: PSCB Transcribe Date/Time: Oct 23 2023 2:49P Dictated by : NEIDA MORRISON MD This examination was interpreted and the report reviewed and electronically signed by: NEIDA MORRISON MD on Oct 23 2023 2:58PM [facility] DIVISION OF RADIOLOGY * * *Final Report* * * DATE OF EXAM: Oct 23 2023 2:47PM [facility] 0530 - CT ABD/PEL W IVCON / PROCEDURE REASON: multiple diagnoses * * * * Physician Interpretation * * * * EXAMINATION: CT ABDOMEN AND PELVIS WITH IV CONTRAST CLINICAL HISTORY: Right lower quadrant abdominal pain. TECHNIQUE: CT of the abdomen and pelvis was performed using standard technique, scanning from just above the dome of the diaphragm to the symphysis pubis. MQ: CTAP_3 Contrast: IV: 100 ml of Omnipaque 300 Oral: 10 ml of Omni 240 10-25ml diluted with water CT Radiation dose: Integrated Dose-length product (DLP) for this visit = 616 mGy*cm. CT Dose Reduction Employed: Automated exposure control(AEC) and iterative recon COMPARISON: CT flank on 09/10/2016 RESULT: Liver: No mass. A triangular low-attenuation along the falciform ligament, likely representing pseudolesion. Biliary: No bile duct dilation. The gallbladder is surgically absent. Spleen: No mass. No splenomegaly. Pancreas: No mass or duct dilation. Adrenals: No mass. Kidneys: No kidney mass, abnormal enhancement or hydronephrosis. GI tract: No dilation or wall thickening. The appendix is identified and normal in appearance. Questionable mild appendicolith. No diverticulitis. Small to moderate stool burden noted. Lymph nodes: No abdominal or pelvic lymphadenopathy. Mesentery/Peritoneum: No ascites or mass or free abdominal air. Retroperitoneum: No mass. Vasculature: The celiac artery, SMA, ANN-MARIE and portal veins are patent. Pelvis: No mass, ascites or fluid collection. There is a T-shaped IUD in the uterus. Bones/Soft Tissues: Soft tissue stranding along the bilateral anterior abdominal wall. The visualized bones are intact. The spine shows mild degenerative changes. Lower thorax: No pleural effusions. Lung bases are clear. Localizer images: No additional findings. DIVISION OF RADIOLOGY Provider, [facility] - 10/23/2023 * * *Final Report* * * DATE OF EXAM: Oct 23 2023 2:47PM [facility] 0530 - CT ABD/PEL W IVCON / PROCEDURE REASON: multiple diagnoses * * * * Physician Interpretation * * * * EXAMINATION: CT ABDOMEN AND PELVIS WITH IV CONTRAST CLINICAL HISTORY: Right lower quadrant abdominal pain. TECHNIQUE: CT of the abdomen and pelvis was performed using standard technique, scanning from just above the dome of the diaphragm to the symphysis pubis. MQ: CTAP_3 Contrast: IV: 100 ml of Omnipaque 300 Oral: 10 ml of Omni 240 10-25ml diluted with water CT Radiation dose: Integrated Dose-length product (DLP) for this visit = 616 mGy*cm. CT Dose Reduction Employed: Automated exposure control(AEC) and iterative recon COMPARISON: CT flank on 09/10/2016 RESULT: Liver: No mass. A triangular low-attenuation along the falciform ligament, likely representing pseudolesion. Biliary: No bile duct dilation. The gallbladder is surgically absent. Spleen: No mass. No splenomegaly. Pancreas: No mass or duct dilation. Adrenals: No mass. Kidneys: No kidney mass, abnormal enhancement or hydronephrosis. GI tract: No dilation or wall thickening. The appendix is identified and normal in appearance. Questionable mild appendicolith. No diverticulitis. Small to moderate stool burden noted. Lymph nodes: No abdominal or pelvic lymphadenopathy. Mesentery/Peritoneum: No ascites or mass or free abdominal air. Retroperitoneum: No mass. Vasculature: The celiac artery, SMA, ANN-MARIE and portal veins are patent. Pelvis: No mass, ascites or fluid collection. There is a T-shaped IUD in the uterus. Bones/Soft Tissues: Soft tissue stranding along the bilateral anterior abdominal wall. The visualized bones are intact. The spine shows mild degenerative changes. Lower thorax: No pleural effusions. Lung bases are clear. Localizer images: No additional findings. IMPRESSION IMPRESSION: No acute abnormalities identified in the abdomen or pelvis. Environmental Attorney: VINEET Transcribe Date/Time: Oct 23 2023 2:49P Dictated by : NEIDA MORRISON MD This examination was interpreted and the report reviewed and electronically signed by: NEIDA MORRISON MD on Oct 23 2023 2:58PM [facility] Radiology Study observation (narrative) [facility] CT Abdomen and Pelvis W cont rast IVOrdered By: Ccf Provider on 10-23-2023 [facility] US Pelvison 10-21-2023 Indication Pelvic pain- right lower quadrant, irregular menses Impression Remote Read. I was not present for image acquisition. I did not speak to the patient. 1. The uterus is 84 x 52 x 32 mm and anteverted. 2. The myometrium is normal, no lesions or signs of adenomyosis. 3. The endometrium is 2 mm, thin, no lesions or color flow. IUD seen best on 3D. Positioned correctly at uterine fundus. 4. The cervix is normal. 5. There is no free fluid in the pelvis. 6. The right ovary is normal. 7. The left ovary is normal. Recommendations 1. IUD positioned correctly within the uterus. 2. No adnexal pathology. Menstrual History LMP on 10/12/2023. Cycle: irregular cycle. Contraception: tubal sterilization Method Transabdominal, transvaginal, 3D ultrasound examination, Color Doppler examination. View: Adequate visualization Uterus Uterus: Visualized Uterus position: anteverted Description of uterine malformations: none Myometrium: heterogeneous Endometrium: normal Cervix details: cystic lesions identified suggesting superficial Nabothian cysts Uterus length 84 mm Uterus width 52 mm Uterus height 32 mm Uterus Vol 72.5 cm Endometrial thickness, total 1.8 mm IUCD Position control IUCD type: Kyleena. Location: positioned correctly at the fundus of the uterus Right Ovary Rt ovary: Visualized Rt ovary D1 32 mm Rt ovary D2 27 mm Rt ovary D3 18 mm Rt ovary Vol 8.1 cm Rt ovarian cyst(s): Cysts identified Rt ovarian cyst D1 13 mm Rt ovarian cyst D2 11 mm Rt ovarian cyst D3 12 mm Rt ovarian cyst mean 12.0 mm Rt ovarian cyst vol 0.898 cm Rt ovarian cyst findings: Hemorrhagic cyst with reticular pattern/clot Left Ovary Lt ovary: Visualized Lt ovary morphology: premenopausal normal follicular Lt ovary D1 26 mm Lt ovary D2 24 mm Lt ovary D3 24 mm Lt ovary Vol 7.8 cm Cul de Sac Visualized. no free fluid visualized Procedure To characterize the [IUD], three dimensional imaging was created on a dedicated stand-alone 3D workstation with images created and archived, and supervised and reviewed by the interpreting physician utilizing images from an ultrasound scan performed today. Performed By: Jacqui Medina RDMS Read By: Master Salmeron M.D. MATERNAL MEDICINE [facility] Radiology Study observation (narrative) [facility] HEMOGLOBIN A1C (POC)on 10-02 HbA1c (Bld) [Mass fraction] 5.5 % 4.3 - 5.6 % [facility] Comment on above: Location:[address], [place], [address] Point of care (POC) Hemoglobin A1c (HGBA1C) testing is intended to assess glucose control and provide a management tool for patients known to have diabetes and their healthcare providers. Target HGBA1C levels may depend on specific clinical circumstances. POC HGBA1C is not intended for use as a diagnostic or screening test; laboratory-based testing should be used for diagnostic purposes. The following information is supplemental and may not be applicable to specific diabetes management situations: The POC device wrapper sizer provides a normal range of 4.2% to 6.5% for the HGBA1C POC test. However, the [place] Diabetes [employer] guidelines indicate that patients with HGBA1C in the range of 5.7% to 6.4% are at increased risk for development of diabetes and that intervention by lifestyle modification may be beneficial. A HGBA1C level greater than or equal to 6.5% is considered diagnostic of diabetes, pending confirmatory testing. Use of HGBA1C testing to evaluate glucose control may not be appropriate for patients with hemoglobin variants or other conditions (e.g. anemia) that alter red blood cell lifespan. [facility] UA DIP, URINE (POC)on 2023 BILIRUBIN UA (POCT) Negative Negative [facility] CLARITY UA (POCT) Clear [facility] COLOR UA (POCT) Yellow [facility] GLUCOSE UA (POCT) Negative Negative mg/dL [facility] Hemoglobin Ql (U) Negative Negative [facility] Interpretation and review of laboratory results Abnormal [facility] KETONE UA (POCT) 15 mg/dL Abnormal Negative [facility] LEUKOCYTES UA (POCT) Negative Negative [facility] NITRITE UA (POCT) Negative Negative [facility] PH UA (POCT) 5.5 4.5 - 8.0 [facility] Protein Ql (U) 30 mg/dL Abnormal Negative [facility] SPECIFIC GRAVITY UA (POCT) >=1.030 1.005 - 1.030 [facility] UROBILINOGEN UA (POCT) 0.2 Normal E.U./dL [facility] Location:[facility], [address] [place] [address], [place], [place], [id number] [place] [address] POINT OF CARE [facility] XR Clavicle - right 2 Viewso n 08-23-2023 IMPRESSION: No acute fractures seen of the right clavicle. Mild degenerative change at AC joint Environmental Attorney: [facility] Transcribe Date/Time: Aug 23 2023 7:33P Dictated by : JOSEFINA PELLETIER MD This examination was interpreted and the report reviewed and electronically signed by: JOSEFINA PELLETIER MD on Aug 23 2023 7:33PM [facility] DIVISION OF RADIOLOGY * * *Final Report* * * DATE OF EXAM: Aug 18 2023 12:45PM WOX 5317 - XR CLAVICLE 2V RT / PROCEDURE REASON: Strain of right trapezius muscle, sequela * * * * Physician Interpretation * * * * XR CLAVICLE 2V RT PROVIDED HISTORY: Strain of right trapezius muscle, sequela COMPARISON: 10/11/2022 TECHNIQUE: 2 views of right clavicle RESULT: Bony mineralization within normal limits. Osseous alignment appears intact. Mild degenerative change right AC joint. No acute fractures seen DIVISION OF RADIOLOGY Provider, Sara Abre[facility] - 08/23/2023 * * *Final Report* * * DATE OF EXAM: Aug 18 2023 12:45PM WOX 5317 - XR CLAVICLE 2V RT / PROCEDURE REASON: Strain of right trapezius muscle, sequela * * * * Physician Interpretation * * * * XR CLAVICLE 2V RT PROVIDED HISTORY: Strain of right trapezius muscle, sequela COMPARISON: 10/11/2022 TECHNIQUE: 2 views of right clavicle RESULT: Bony mineralization within normal limits. Osseous alignment appears intact. Mild degenerative change right AC joint. No acute fractures seen IMPRESSION IMPRESSION: No acute fractures seen of the right clavicle. Mild degenerative change at AC joint Environmental Attorney: [facility] Transcribe Date/Time: Aug 23 2023 7:33P Dictated by : JOSEFINA PELLETIER MD This examination was interpreted and the report reviewed and electronically signed by: JOSEFINA PELLETIER MD on Aug 23 2023 7:33PM EST [facility] XR Clavicle - right 2 ViewsO rdered By: Ccf Provider on 08-23-2023 [facility] XR Knee - left 4 Viewson IMPRESSION: Mild osteoarthritic change of the left knee. No acute fractures seen Environmental Attorney: [employer] Transcribe Date/Time: Aug 23 2023 7:33P Dictated by : JOSEFINA PELLETIER MD This examination was interpreted and the report reviewed and electronically signed by: JOSEFINA PELLETIER MD on Aug 23 2023 7:34PM EST DIVISION OF RADIOLOGY * * *Final Report* * * DATE OF EXAM: Aug 18 2023 12:45PM WOX 5202 - XR KNEE 4V AP/PA BOTH+LAT/YANCY LT / PROCEDURE REASON: Acute pain of right knee * * * * Physician Interpretation * * * * XR KNEE 4V AP/PA BOTH+LAT/YANCY LT PROVIDED HISTORY: Acute pain of right knee COMPARISON: 04/15/2023 TECHNIQUE: 4 views RESULT: Bony mineralization within normal limits. Osseous alignment appears intact. Minimal narrowing of the medial compartment of the left knee. Slight patellofemoral compartment narrowing noted with bony spurring. No joint effusion or acute fractures seen DIVISION OF RADIOLOGY Provider, [facility] - 08/23/2023 * * *Final Report* * * DATE OF EXAM: Aug 18 2023 12:45PM WOX 5202 - XR KNEE 4V AP/PA BOTH+LAT/YANCY LT / PROCEDURE REASON: Acute pain of right knee * * * * Physician Interpretation * * * * XR KNEE 4V AP/PA BOTH+LAT/YANCY LT PROVIDED HISTORY: Acute pain of right knee COMPARISON: 04/15/2023 TECHNIQUE: 4 views RESULT: Bony mineralization within normal limits. Osseous alignment appears intact. Minimal narrowing of the medial compartment of the left knee. Slight patellofemoral compartment narrowing noted with bony spurring. No joint effusion or acute fractures seen IMPRESSION IMPRESSION: Mild osteoarthritic change of the left knee. No acute fractures seen Environmental Attorney: [employer] Transcribe Date/Time: Aug 23 2023 7:33P Dictated by : JOSEFINA PELLETIER MD This examination was interpreted and the report reviewed and electronically signed by: JOSEFINA PELLTEIER MD on Aug 23 2023 7:34PM EST [facility] No Panel Informationon 08-17 Radiology Study observation (narrative) [facility] BACTERIAL VAGINOSIS NAATon 0 07-17-2023 Interpretation and review of laboratory results Normal [facility] Lactobacillus crispatus+gasseri+javi senii + Gardnerella vaginalis + Atopobium vaginae rRNA FAUSTINA+probe Ql (Vag fld) Negative Negative for bacterial vaginosis [facility] MARCELO/TRICHOMONAS NAATon 0 07-17-2023 C. glabrata RNA FAUSTINA+probe Ql (Vag fld) Negative Negative for Marcelo glabrata [facility] Marcelo sp DNA FAUSTINA+probe Ql (Vag fld) Negative Negative for Marcelo species [facility] Interpretation and review of laboratory results Normal [facility] T. vaginalis DNA FAUSTINA+probe Ql (Unsp spec) Negative Negative for Trichomonas vaginalis by amplification [facility] Basic metabolic 2000 panelOr dered By: Maddie Cruz on 07-16-2023 Anion gap [Moles/Vol] 8 mmol/L Low 9 - 18 mmol/L [facility] Calcium [Mass/Vol] 10.2 mg/dL 8.5 - 10. 2 mg/dL [facility] Chloride [Moles/Vol] 101 mmol/L 97 - 10 5 mmol/L [facility] CO2 [Moles/Vol] 29 mmol/L 22 - 30 mmol/L [facility] Creatinine [Mass/Vol] 0.56 mg/dL Low 0.58 - 0.96 mg/dL [facility] GFR/1.73 sq M.predicted among non-blacks MDRD (S/P/Bld) [Vol rate/Area] 119 mL/min/{1.73_m2} - PINF [facility] Comment on above: Estimated Glomerular Filtration Rate (eGFR) is calculated using the 2020 CKD-EPI creatinine equation. This equation utilizes serum creatinine, sex, and age as parameters. The creatinine assay has traceable calibration to isotope dilution-mass spectrometry. Refer to KDIGO guidelines for clinical interpretation. In patients with unstable renal function, e.g. those with acute kidney injury, the eGFR may not accurately reflect actual GFR. Glucose [Mass/Vol] 127 mg/dL High 74 - 99 mg/dL [facility] Comment on above: The [place] Diabete s Association (ADA) provides guidance for cutoff values for fasting glucose and random glucose. The ADA defines fasting as no caloric intake for at least 8 hours. Fasting plasma glucose results between 100 to 125 mg/dL indicate increased risk for diabetes (prediabetes). Fasting plasma glucose results greater than or equal to 126 mg/dL meet the criteria for diagnosis of diabetes. In the absence of unequivocal hyperglycemia, results should be confirmed by repeat testing. In a patient with classic symptoms of hyperglycemia or hyperglycemic crisis, random plasma glucose results greater than or equal to 200 mg/dL meet the criteria for diagnosis of diabetes. Reference: Standards of Medical Care in Diabetes 2016, [place] [employer]. Diabetes Care. 2016.39(Suppl 1). Interpretation and review of laboratory results Abnormal [facility] Potassium [Moles/Vol] 3.4 mmol/L Low 3.7 - 5.1 mmol/L [facility] Sodium [Moles/Vol] 138 mmol/L 136 - 144 mmol/L [facility] Urea nitrogen [Mass/Vol] 5 mg/dL Low 7 - 21 mg/dL [facility] CBC panel Auto (Bld)on 07-15 Erythrocyte distribution width (RBC) [Ratio] 11.8 % 11.5 - 15.0 % [facility] Hematocrit (Bld) [Volume fraction] 37.8 % 36.0 - 46.0 % [facility] Hemoglobin (Bld) [Mass/Vol] 12.9 g/dL 11.5 - 15.5 g/dL [facility] Interpretation and review of laboratory results Normal [facility] MCH (RBC) [Entitic mass] 29.8 pg 26.0 - 34.0 pg [facility] MCHC (RBC) [Mass/Vol] 34.1 g/dL 30.5 - 36.0 g/dL [facility] MCV (RBC) [Entitic vol] 87.3 fL 80.0 - 100.0 fL [facility] Nucleated RBC (Bld) [#/Vol] NINF [facility] Platelet mean volume (Bld) [Entitic vol] 9.7 fL 9.0 - 12.7 fL [facility] Platelets (Bld) [#/Vol] 303 10*3/uL [facility] RBC (Bld) [#/Vol] 4.33 10*6/uL 3.90 - 5.2 0 m/uL [facility] WBC (Bld) [#/Vol] 10.43 10*3/uL [facility] Laboratory - Chemistry and C hemistry - challengeOrdered By: Anthony Anton on 07-04-2023 HCG ( test) Ql (U) Negative [facility] Comment on above: Very dilute urine sp ecimens, as indicated by a low specificgravity, may not contain office machines sales representative levels of hCG. If is still suspected, a first morning urinespecimen should be collected 48 hours later and tested. Thin prep Papanicolaou smear with manual screeningOrdered By: Ruth Ann Villatoro on 07-04-2023 Thin prep Papanicolaou smear with manual screening 184 mg/dL 74-106 [facility] Comment on above: MANAGEMENT OF PATIEN T CARE PER NURSING PROTOCOL MR Knee - left WO contraston 05-20-2023 [facility] No Panel Informationon 03-21 IMPRESSION: No acute osseous abnormality Environmental Attorney: [employer] Transcribe Date/Time: Mar 21 2023 10:02A Dictated by : FLORECITA CARDONA MD This examination was interpreted and the report reviewed and electronically signed by: FLORECITA CRADONA MD on Mar 21 2023 10:08AM EST DIVISION OF RADIOLOGY Radiology Study observation (narrative) [facility] No Panel InformationOrdered By: Ccf Provider on 03-21-2023 [facility] XR Hand - left PA and Latera l and Obliqueon 03-21-2023 * * *Final Report* * * DATE OF EXAM: Mar 21 2023 9:56AM WOX 5345 - XR HAND 3V PA/LAT/OBL LT / PROCEDURE REASON: multiple diagnoses * * * * Physician Interpretation * * * * EXAMINATION: XR FOREARM 2V AP/LAT LT, XR HAND 3V PA/LAT/OBL LT CLINICAL HISTORY: Left upper extremity pain after fall Technique: XR FOREARM 2V AP/LAT LT, XR HAND 3V PA/LAT/OBL LT -- LEFT with 2 (accession [id number]), 3 (accession [id number]) views on 2 (accession [id number]), 3 (accession [id number]) images Comparison: None RESULT: Left forearm: No acute fracture or dislocation. Joint spaces are maintained. Left hand: No acute fracture or dislocation. Joint spaces are maintained. DIVISION OF RADIOLOGY Provider, [facility] - 03/21/2023 * * *Final Report* * * DATE OF EXAM: Mar 21 2023 9:56AM WOX 5345 - XR HAND 3V PA/LAT/OBL LT / PROCEDURE REASON: multiple diagnoses * * * * Physician Interpretation * * * * EXAMINATION: XR FOREARM 2V AP/LAT LT, XR HAND 3V PA/LAT/OBL LT CLINICAL HISTORY: Left upper extremity pain after fall Technique: XR FOREARM 2V AP/LAT LT, XR HAND 3V PA/LAT/OBL LT -- LEFT with 2 (accession [id number]), 3 (accession [id number]) views on 2 (accession [id number]), 3 (accession [id number]) images Comparison: None RESULT: Left forearm: No acute fracture or dislocation. Joint spaces are maintained. Left hand: No acute fracture or dislocation. Joint spaces are maintained. IMPRESSION IMPRESSION: No acute osseous abnormality Environmental Attorney: [facility] Transcribe Date/Time: Mar 21 2023 10:02A Dictated by : FLORECITA CARDONA MD This examination was interpreted and the report reviewed and electronically signed by: FLORECITA CARDONA MD on Mar 21 2023 10:08AM [facility] XR Radius and Ulna - left AP and Lateralon 03-21-2023 * * *Final Report* * * DATE OF EXAM: Mar 21 2023 9:56AM WOX 5341 - XR FOREARM 2V AP/LAT LT / PROCEDURE REASON: multiple diagnoses * * * * Physician Interpretation * * * * EXAMINATION: XR FOREARM 2V AP/LAT LT, XR HAND 3V PA/LAT/OBL LT CLINICAL HISTORY: Left upper extremity pain after fall Technique: XR FOREARM 2V AP/LAT LT, XR HAND 3V PA/LAT/OBL LT -- LEFT with 2 (accession [id number]), 3 (accession [id number]) views on 2 (accession [id number]), 3 (accession [id number]) images Comparison: None RESULT: Left forearm: No acute fracture or dislocation. Joint spaces are maintained. Left hand: No acute fracture or dislocation. Joint spaces are maintained. DIVISION OF RADIOLOGY Provider, [facility] - 03/21/2023 * * *Final Report* * * DATE OF EXAM: Mar 21 2023 9:56AM WOX 5341 - XR FOREARM 2V AP/LAT LT / PROCEDURE REASON: multiple diagnoses * * * * Physician Interpretation * * * * EXAMINATION: XR FOREARM 2V AP/LAT LT, XR HAND 3V PA/LAT/OBL LT CLINICAL HISTORY: Left upper extremity pain after fall Technique: XR FOREARM 2V AP/LAT LT, XR HAND 3V PA/LAT/OBL LT -- LEFT with 2 (accession [id number]), 3 (accession [id number]) views on 2 (accession [id number]), 3 (accession [id number]) images Comparison: None RESULT: Left forearm: No acute fracture or dislocation. Joint spaces are maintained. Left hand: No acute fracture or dislocation. Joint spaces are maintained. IMPRESSION IMPRESSION: No acute osseous abnormality Environmental [facility] Transcribe Date/Time: Mar 21 2023 10:02A Dictated by : FLORECITA CARDONA MD This examination was interpreted and the report reviewed and electronically signed by: FLORECITA CARDONA MD on Mar 21 2023 10:08AM EST [facility] Gram stain for investigation of transfusion reactionOrdered By: Bharat Dewitt on 12-30-2022 Microscopic observation Gram stain Nom (Unsp spec) [facility] No Panel InformationOrdered By: Bharat Dewitt on 12-30-2022 Nasopharyngeal Culture No growth in 48 hours. [facility] XR Shoulder - right 3 Viewso n 10-15-2022 IMPRESSION: No acute bony abnormality. Environmental Attorney: [facility] Transcribe Date/Time: Oct 15 2022 11:29P Dictated by : MASTER ROYAL MD This examination was interpreted and the report reviewed and electronically signed by: MASTER ROYAL MD on Oct 15 2022 11:30PM [facility] DIVISION OF RADIOLOGY * * *Final Report* * * DATE OF EXAM: Oct 11 2022 4:25PM WOX 5253 - XR SHLDR >/=3V AP/EUGENIO AP/OTHR RT / PROCEDURE REASON: Acute pain of right shoulder * * * * Physician Interpretation * * * * EXAMINATION / TECHNIQUE: XR SHLDR >/=3V AP/EUGENIO AP/OTHR RT HISTORY: Anterior right shoulder pain with popping x 2 weeks. No injury Acute pain of right shoulder COMPARISON: 09/14/2021. RESULT: No acute fracture or osseous malalignment is identified. The joint spaces are preserved. DIVISION OF RADIOLOGY Provider, [facility] - 10/15/2022 * * *Final Report* * * DATE OF EXAM: Oct 11 2022 4:25PM WOX 5253 - XR SHLDR >/=3V AP/EUGENIO AP/OTHR RT / PROCEDURE REASON: Acute pain of right shoulder * * * * Physician Interpretation * * * * EXAMINATION / TECHNIQUE: XR SHLDR >/=3V AP/EUGENIO AP/OTHR RT HISTORY: Anterior right shoulder pain with popping x 2 weeks. No injury Acute pain of right shoulder COMPARISON: 09/14/2021. RESULT: No acute fracture or osseous malalignment is identified. The joint spaces are preserved. IMPRESSION IMPRESSION: No acute bony abnormality. Environmental Attorney: [facility] Transcribe Date/Time: Oct 15 2022 11:29P Dictated by : MASTER ROYAL MD This examination was interpreted and the report reviewed and electronically signed by: MASTER ROYAL MD on Oct 15 2022 11:30PM EST [facility] XR Shoulder - right 3 ViewsO rdered By: [facility] Provider on 10-15-2022 [facility] XR Shoulder - right 3 Viewso n 10-11-2022 Radiology Study observation (narrative) [facility] UA DIP, URINE (POC)on 2022 BILIRUBIN UA (POCT) Negative Negative [facility] CLARITY UA (POCT) Clear [facility] COLOR UA (POCT) Dark yellow [facility] GLUCOSE UA (POCT) Negative Negative mg/dL [facility] HEMOGLOBIN/BLOOD UA (POCT) Negative Negative [facility] KETONE UA (POCT) Negative Negative mg/dL [facility] LEUKOCYTES UA (POCT) Negative Negative [facility] NITRITE UA (POCT) Negative Negative [facility] PH UA (POCT) 5.5 4.5 - 8.0 [facility] Protein Ql (U) 30 mg/dL Abnormal Negative mg/dL [facility] SPECIFIC GRAVITY UA (POCT) >=1.030 1.005 - 1.030 [facility] UROBILINOGEN UA (POCT) 0.2 E.U./dL Normal E.U./dL [facility] UA DIP, URINE (POC)on 2022 BILIRUBIN UA (POCT) Small Abnormal Negative [facility] CLARITY UA (POCT) Cloudy [facility] COLOR UA (POCT) Dark yellow [facility] GLUCOSE UA (POCT) 100 mg/dL Abnormal Negative mg/dL [facility] HEMOGLOBIN/BLOOD UA (POCT) Trace-intact Abnormal Negative [facility] KETONE UA (POCT) 40 mg/dL Abnormal Negative mg/dL [facility] LEUKOCYTES UA (POCT) Negative Negative [facility] NITRITE UA (POCT) Negative Negative [facility] PH UA (POCT) 5.0 4.5 - 8.0 [facility] Protein Ql (U) 100 mg/dL Abnormal Negative mg/dL [facility] SPECIFIC GRAVITY UA (POCT) >=1.030 1.005 - 1.030 [facility] UROBILINOGEN UA (POCT) 0.2 E.U./dL Normal E.U./dL [facility] HEMOGLOBIN A1C (POC)on 05-16 HbA1c (Bld) [Mass fraction] 9.6 % Abnormal 4.2 - 5.6 % [facility] LABORATORYOrdered By: Tulio Maddox on 05-16-2022 Glucose [Mass/Vol] 240 mg/dL Invalid Interpretation Code 70 - 110 mg/dL [facility] Work Phone: Glucose [Mass/Vol] 326 mg/dL Invalid Interpretation Code 70 - 110 mg/dL [facility] Work Phone: LABORATORYOrdered By: Jaja Wilburn on 05-16-2022 Appearance (U) Slightly Cloudy *ABN* (05/16/22 7:17 AM) Invalid Interpretation Code Clear AO Auto Urine SS Bacteria LM.HPF (Urine sed) [#/Area] 1 /[HPF] Invalid Interpretation Code AO Auto Urine SS Basophil, Absolute 0.0 103/mcL Invalid Interpretation Code 0.0 - 0.2 10^3/mcL AO Workflow SS Basophils/100 WBC (Bld) 0.8 % Invalid Interpretation Code 0.0 - 2.5 % AO Workflow SS Bilirubin Ql (U) Negative (05/16/22 7:17 AM) Invalid Interpretation Code Negative AO Auto Urine SS Color (U) Yellow (05/16/22 7:17 AM) Invalid Interpretation Code AO Auto Urine SS Eosinophil, Absolute 0.3 103/mcL Invalid Interpretation Code 0.0 - 0.4 10^3/mcL AO Workflow SS Eosinophils/100 WBC (Bld) 4.9 % Invalid Interpretation Code 0.0 - 7.0 % AO Workflow SS Erythrocyte distribution width (RBC) [Ratio] 13.0 % Invalid Interpretation Code 11.5 - 14.5 % AO Workflow SS Glucose Test strip (U) [Mass/Vol] 500 mg/dL Invalid Interpretation Code Negativemg/dL AO Auto Urine SS Hematocrit (Bld) [Volume fraction] 41.3 % Invalid Interpretation Code 37.0 - 47.0 % AO Workflow SS Hemoglobin (Bld) [Mass/Vol] 13.9 G/dL Invalid Interpretation Code 12.0 - 16.0 G/dL AO Workflow SS Hemoglobin Auto test strip (U) [Mass/Vol] Negative (05/16/22 7:17 AM) Invalid Interpretation Code Negative AO Auto Urine SS Ketones [Mass/Vol] Negative Invalid Interpretation Code Negativemg/dL AO Rapid Testing SS Ketones Ql (U) Trace mg/dL Invalid Interpretation Code Negativemg/dL AO Auto Urine SS Lymphocyte, Absolute 1.8 103/mcL Invalid Interpretation Code 0.8 - 3.9 10^3/mcL AO Workflow SS Lymphocytes/100 WBC (Bld) 28.5 % Invalid Interpretation Code 10.0 - 50.0 % AO Workflow SS MCH (RBC) [Entitic mass] 29.3 pg Invalid Interpretation Code 27.0 - 31.2 pg AO Workflow SS MCHC 33.6 G/dL Invalid Interpretation Code 33.0 - 37.0 G/dL AO Workflow SS MCV (RBC) [Entitic vol] 87.0 fL Invalid Interpretation Code 80.0 - 94.0 fL AO Workflow SS Monocyte distribution width Auto (Bld) [Entitic vol] 17.39 Invalid Interpretation Code 0.00 - 20.00 AO Workflow SS Comment on above: Result Comment: For ED adult patients suspected of sepsis, MDW<=20.0 does not rule out sepsis or risk of sepsis Monocyte, Absolute 0.4 103/mcL Invalid Interpretation Code 0.2 - 1.0 10^3/mcL AO Workflow SS Monocytes/100 WBC (Bld) 6.7 % Invalid Interpretation Code 1.7 - 13.0 % AO Workflow SS Neutrophil, Absolute 3.8 103/mcL Invalid Interpretation Code 2.9 - 6.2 10^3/mcL AO Workflow SS Neutrophils/100 WBC (Bld) 59.1 % Invalid Interpretation Code 37.0 - 80.0 % AO Workflow SS pH (BldV) 7.33 [pH] Invalid Interpretation Code 7.31 - 7.41 AO Blood Gas SS Platelet mean volume (Bld) [Entitic vol] 8.1 fL Invalid Interpretation Code 7.4 - 10.4 fL AO Workflow SS Platelets (Bld) [#/Vol] 233 103/mcL Invalid Interpretation Code 130 - 400 10^3/mcL AO Workflow SS RBC (Bld) [#/Vol] 4.74 106/mcL Invalid Interpretation Code 4.20 - 5.40 10^6/mcL AO Workflow SS UA Leuk Est Negative (05/16/22 7:17 AM) Invalid Interpretation Code Negative AO Auto Urine SS UA Nitrite Negative (05/16/22 7:17 AM) Invalid Interpretation Code Negative AO Auto Urine SS UA pH 6.0 (05/16/22 7:17 AM) Invalid Interpretation Code 5.0 - 8.0 AO Auto Urine SS UA Protein Negative Invalid Interpretation Code Negativemg/dL AO Auto Urine SS UA RBC None Seen /HPF Invalid Interpretation Code None Seen/HPF AO Auto Urine SS UA Spec Grav 1.020 (05/16/22 7:17 AM) Invalid Interpretation Code 1.015-1.025 AO Auto Urine SS UA Specimen Type Void (05/16/22 7:17 AM) Invalid Interpretation Code AO Auto Urine SS UA Squam Epithelial 10-15 /HPF Invalid Interpretation Code None Seen/HPF AO Auto Urine SS UA Urobilinogen 0.2 E.U./dL Invalid Interpretation Code 0.2-1.0E.U./dL AO Auto Urine SS WBC (Bld) [#/Vol] 6.4 103/mcL Invalid Interpretation Code 4.6 - 10.8 10^3/mcL AO Workflow SS WBC LM.HPF (Urine sed) [#/Area] None Seen /HPF Invalid Interpretation Code None Seen/HPF AO Auto Urine SS LABORATORYOrdered By: SYSTEM SYSTEM on 05-16-2022 Calcium [Mass/Vol] 8.3 mg/dL Invalid Interpretation Code 8.4 - 10.2 mg/dL AO ADM SS Chloride [Moles/Vol] 101 mmol/L Invalid Interpretation Code 98 - 107 mmol/L AO ADM SS CO2 [Moles/Vol] 25 mmol/L Invalid Interpretation Code 22 - 29 mmol/L AO ADM SS Creatinine [Mass/Vol] 0.69 mg/dL Invalid Interpretation Code 0.55 - 1.02 mg/dL AO ADM SS Electrolyte Balance 10.0 mEq/L Invalid Interpretation Code 4.0 - 15.0 mEq/L AO ADM SS GFR 115 ml/min/1.73sqm Invalid Interpretation Code AO Chemistry S GFR Non- 95 ml/min/1.73sqm Invalid Interpretation Code AO Chemistry S Glucose [Mass/Vol] 299 mg/dL Invalid Interpretation Code 70 - 105 mg/dL AO ADM SS Potassium [Moles/Vol] 3.8 mmol/L Invalid Interpretation Code 3.5 - 5.1 mmol/L AO ADM SS Sodium [Moles/Vol] 136 mmol/L Invalid Interpretation Code 136 - 145 mmol/L AO ADM SS Urea nitrogen [Mass/Vol] 8 mg/dL Invalid Interpretation Code 7 - 18 mg/dL AO ADM SS Urea nitrogen/Creatinine [Mass ratio] 12 ratio Invalid Interpretation Code 7 - 27 ratio AO ADM SS Absolute lymphocyte countOrd ered By: Dr. Lala on 05-14-2022 Lymphocytes Auto (Unsp spec) [#/Vol] 2.12 10*3/uL 0.83-4.51 [facility] Basophil percentageOrdered B y: Dr. Lala on 05-14-2022 Basophil percentage 0 SEEN /hpf 0-5 [facility] Basophils/100 WBC (Bld) 0.5 % 0-1 [facility] Chloride [Moles/Vol] 103 mmol/L 98-107 [facility] Eosinophils/100 WBC (Bld) 4.2 % 0-5 [facility] Glucose [Mass/Vol] 288 mg/dL 74-106 [facility] Comment on above: Glucose result great er than or equal to 200 mg/dLsuggests DIABETES MELLITUS per A.D.A. criteria. Neutrophils (Bld) [#/Vol] 5.3 10*3/uL 2.0-7.7 [facility] Neutrophils/100 WBC (Bld) 63.3 % 47-70 [facility] Potassium [Moles/Vol] 3.8 mmol/L 3.5-5.1 [facility] Sodium [Moles/Vol] 136 mmol/L 136-145 [facility] WBC (Bld) [#/Vol] 8.3 10*3/uL 4.4-11.0 [facility] Bilirubin Test strip Ql (U)O rdered By: Dr. Lala on 05-14-2022 Bilirubin Ql (U) Negative Negative [facility] Blood erythrocytes count (nu mber/volume)Ordered By: Dr. Lala on 05-14-2022 RBC (Bld) [#/Vol] 4.99 10*6/uL 4.2-5.4 [facility] Blood hemoglobin measurement (mass/volume)Ordered By: Dr. Lala on 05-14-2022 Hemoglobin (Bld) [Mass/Vol] 14.5 g/dL 12.0-15.0 [facility] Blood lymphocytes/100 leukoc ytesOrdered By: Dr. Lala on 05-14-2022 Lymphocytes/100 WBC (Bld) 25.5 % 19-41 [facility] Blood monocytes/100 leukocyt esOrdered By: Dr. Lala on 05-14-2022 Monocytes/100 WBC (Bld) 6.1 % 0-10 [facility] Blood platelet mean volumeOr dered By: Dr. Lala on 05-14-2022 Platelet mean volume (Bld) [Entitic vol] 10.2 fL 6.2-12.0 [facility] Determination of erythrocyte mean corpuscular volume (MCV)Ordered By: Dr. Lala on 05-14-2022 MCV (RBC) [Entitic vol] 88.8 fL 81-99 [facility] Glucose Glucometer (BldC) [M ass/Vol]Ordered By: Dr. Lala on 05-14-2022 Glucose [Mass/Vol] 284 mg/dL 74-106 [facility] Comment on above: MANAGEMENT OF PATIEN T CARE PER NURSING PROTOCOL Hematocrit Auto (Bld) [Volum e fraction]Ordered By: Dr. Lala on 05-14-2022 Hematocrit (Bld) [Volume fraction] 44.3 % 37-47 [facility] Influenza virus A and B and SARS-CoV-2 (COVID-19) Ag panel - Upper respiratory specimOrdered By: Dr. Lala on 05-14-2022 SARS-CoV-2 (COVID-19) RNA FAUSTINA+probe Ql (Resp) [facility] Ketones Test strip Ql (U)Ord ered By: Dr. Lala on 05-14-2022 Ketones Ql (U) 15 mg/dl Negative [facility] Laboratory - Chemistry and C hemistry - challengeOrdered By: Dr. Lala on 05-14-2022 HCG ( test) Ql (U) Negative [facility] Comment on above: Very dilute urine sp ecimens, as indicated by a low specificgravity, may not contain office machines sales representative levels of hCG. If is still suspected, a first morning urinespecimen should be collected 48 hours later and tested. CO2 [Moles/Vol] 25.0 mmol/L 21.0-32.0 [facility] Urea nitrogen/Creatinine [Mass ratio] 12.4 mg/mg 10-20 [facility] Laboratory - Hematology and Cell countsOrdered By: Dr. Lala on 05-14-2022 Erythrocyte distribution width (RBC) [Entitic vol] 39.8 fL 35.1-43.9 [facility] Erythrocyte distribution width (RBC) [Ratio] 12.3 % 11.6-14.6 [facility] Immature granulocytes/100 WBC (Bld) 0.400 % 0.0-0.9 [facility] Comment on above: IG% - Immature Granu locytes (promyelocytes, myelocytes and metamyelocytes) > 1% indicates that a LEFT SHIFT is Present. MCH (RBC) [Entitic mass] 29.1 pg 27.0-32.0 [facility] Nucleated RBC/100 WBC (Bld) [Ratio] 0 % 0-5 [facility] MCHC Auto (RBC) [Mass/Vol]Or dered By: Dr. Lala on 05-14-2022 MCHC (RBC) [Mass/Vol] 32.7 g/dL 32-36 [facility] Mucus LM Ql (Urine sed)Order ed By: Dr. Lala on 05-14-2022 Mucus Ql (Urine sed) 0 SEEN /hpf [facility] Nitrite Test strip Ql (U)Ord ered By: Dr. Lala on 05-14-2022 Nitrite Ql (U) Negative Negative [facility] No Panel InformationOrdered By: Dr. Lala on 05-14-2022 Estimated Creatinine Clearance Calc 99.64 ml/min [facility] Estimated GFR (MDRD) Amer 103 mL/min >60 [facility] Comment on above: GFR Calc Estimated GFR (MDRD) Non-Af Amer 85 mL/min >60 [facility] Comment on above: Non- GFR Calc Platelets bldOrdered By: Dr. Lala on 05-14-2022 Platelets (Bld) [#/Vol] 239 10*3/uL 150-450 [facility] Protein Test strip Ql (U)Ord ered By: Dr. Lala on 05-14-2022 Protein Ql (U) 30 mg/dl Negative [facility] Serum or plasma calcium andrea urement (mass/volume)Ordered By: Dr. Lala on 05-14-2022 Calcium [Mass/Vol] 9.2 mg/dL 8.5-10.1 [facility] Serum or plasma creatinine m easurement (mass/volume)Ordered By: Dr. Lala on 05-14-2022 Creatinine [Mass/Vol] 0.80 mg/dL 0.55-1.02 [facility] Comment on above: The validity of the calculated GFR & GFRAA in patients over 70 years has not been determined. Clinical correlation is essential. Serum or plasma urea nitroge n measurement (mass/volume)Ordered By: Dr. Lala on 05-14-2022 Urea nitrogen [Mass/Vol] 10 mg/dL 7-18 [facility] Squamous epithelial cells de tection in urine sediment by light microscopyOrdered By: Dr. Lala on 05-14-2022 Epithelial cells.squamous LM Ql (Urine sed) 0-5 SEEN /hpf 5-10 [facility] Thin prep Papanicolaou smear with manual screeningOrdered By: Dr. Lala on 05-14-2022 Thin prep Papanicolaou smear with manual screening 8 5-15 [facility] Urine blood detectionOrdered By: Dr. Lala on 05-14-2022 RBC Ql (U) Negative Negative [facility] RBC Ql (U) 0 SEEN /hpf 0-5 [facility] Urine clarityOrdered By: Dr. Lala on 05-14-2022 Clarity (U) Clear Clear [facility] Urine color determinationOrd ered By: Dr. Lala on 05-14-2022 Color (U) Yellow Yellow [facility] Urine glucose detectionOrder ed By: Dr. Lala on 05-14-2022 Glucose Ql (U) 1000 mg/dl Normal [facility] Urine leukocyte esterase det ection by dipstickOrdered By: Dr. Lala on 05-14-2022 Leukocyte esterase Test strip Ql (U) Negative Negative [facility] Urine pHOrdered By: Dr. Correa ne on 05-14-2022 pH (U) 5.0 [pH] 5.0 - 8.0 [facility] Urine sediment bacteria coun t by microscopy (number/high power field)Ordered By: Dr. Lala on 05-14-2022 Bacteria LM.HPF (Urine sed) [#/Area] 1 /[HPF] None Seen [facility] Urine specific gravity measu rementOrdered By: Dr. Lala on 05-14-2022 Specific gravity (U) [Rel density] 1.025 1.002-1.030 [facility] Urobilinogen Auto test strip Ql (U)Ordered By: Dr. Lala on 05-14-2022 Urobilinogen Ql (U) Normal mg/dl Normal [facility] XR FOOT GENERAL 3V AP/LAT/OB L LEFTon 04-25-2022 [facility] XR Foot - left AP and Latera l and obliqueon 04-25-2022 IMPRESSION: No acute microfilming document preparer: PSCB Transcribe Date/Time: Apr 25 2022 10:07A Dictated by : FLORECITA CARDONA MD This examination was interpreted and the report reviewed and electronically signed by: FLORECITA CARDONA MD on Apr 25 2022 10:09AM [facility] DIVISION OF RADIOLOGY * * *Final Report* * * DATE OF EXAM: Apr 25 2022 9:55AM WOX 5336 - XR FOOT 3V AP/LAT/OBL LT / PROCEDURE REASON: Foot pain, left * * * * Physician Interpretation * * * * EXAMINATION: XR FOOT 3V AP/LAT/OBL LT CLINICAL HISTORY: Left foot pain Technique: XR FOOT 3V AP/LAT/OBL LT -- LEFT with 3 views on 3 images Comparison: None RESULT: There are 2 screws in the distal shaft of the left fifth metatarsal. There is irregularity of the left fifth metatarsal head and neck likely due to prior surgery. No acute fracture or dislocation. Joint spaces are maintained. Small plantar calcaneal spur. DIVISION OF RADIOLOGY Provider, [facility] - 04/25/2022 * * *Final Report* * * DATE OF EXAM: Apr 25 2022 9:55AM WOX 5336 - XR FOOT 3V AP/LAT/OBL LT / PROCEDURE REASON: Foot pain, left * * * * Physician Interpretation * * * * EXAMINATION: XR FOOT 3V AP/LAT/OBL LT CLINICAL HISTORY: Left foot pain Technique: XR FOOT 3V AP/LAT/OBL LT -- LEFT with 3 views on 3 images Comparison: None RESULT: There are 2 screws in the distal shaft of the left fifth metatarsal. There is irregularity of the left fifth metatarsal head and neck likely due to prior surgery. No acute fracture or dislocation. Joint spaces are maintained. Small plantar calcaneal spur. IMPRESSION IMPRESSION: No acute microfilming document preparer: [facility] Transcribe Date/Time: Apr 25 2022 10:07A Dictated by : FLORECITA CARDONA MD This examination was interpreted and the report reviewed and electronically signed by: FLORECITA CARDONA MD on Apr 25 2022 10:09AM EST [facility] Radiology Study observation (narrative) [facility] XR Foot - left AP and Latera l and obliqueOrdered By: [facility] Provider on 04-25-2022 [facility] No Panel Informationon 04-05 [facility] UA DIP, URINE (POC)on 2022 BILIRUBIN UA (POCT) Negative Negative [facility] CLARITY UA (POCT) Clear [facility] COLOR UA (POCT) Yellow [facility] GLUCOSE UA (POCT) 500 mg/dL Abnormal Negative mg/dL [facility] HEMOGLOBIN/BLOOD UA (POCT) Trace-intact Abnormal Negative [facility] KETONE UA (POCT) Trace Negative mg/dL [facility] LEUKOCYTES UA (POCT) Negative Negative [facility] NITRITE UA (POCT) Negative Negative [facility] PH UA (POCT) 5.5 4.5 - 8.0 [facility] Protein Ql (U) 30 mg/dL Abnormal Negative mg/dL [facility] SPECIFIC GRAVITY UA (POCT) >=1.030 1.005 - 1.030 [facility] UROBILINOGEN UA (POCT) 0.2 E.U./dL Normal E.U./dL [facility] CBC panel Auto (Bld)on 03-06 Erythrocyte distribution width (RBC) [Ratio] 12.1 % 11.5 - 15.0 % [facility] Hematocrit (Bld) [Volume fraction] 42.1 % 36.0 - 46.0 % [facility] Hemoglobin (Bld) [Mass/Vol] 13.8 g/dL 11.5 - 15.5 g/dL [facility] MCH (RBC) [Entitic mass] 29.1 pg 26.0 - 34.0 pg [facility] MCHC (RBC) [Mass/Vol] 32.8 g/dL 30.5 - 36.0 g/dL [facility] MCV (RBC) [Entitic vol] 88.6 fL 80.0 - 100.0 fL [facility] Nucleated RBC (Bld) [#/Vol] <0.01 k/uL [facility] Platelet mean volume (Bld) [Entitic vol] 10.3 fL 9.0 - 12.7 fL [facility] Platelets (Bld) [#/Vol] 277 10*3/uL 150 - 400 k/uL [facility] RBC (Bld) [#/Vol] 4.75 10*6/uL 3.90 - 5.2 0 m/uL [facility] WBC (Bld) [#/Vol] 9.02 10*3/uL 3.70 - 11. 00 k/uL [facility] LABORATORYOrdered By: Liya Egan on 03-03-2022 Basophil, Absolute 0.1 103/mcL Invalid Interpretation Code 0.0 - 0.2 10^3/mcL AO Workflow SS Basophils/100 WBC (Bld) 1.1 % Invalid Interpretation Code 0.0 - 2.5 % AO Workflow SS Eosinophil, Absolute 0.3 103/mcL Invalid Interpretation Code 0.0 - 0.4 10^3/mcL AO Workflow SS Eosinophils/100 WBC (Bld) 3.1 % Invalid Interpretation Code 0.0 - 7.0 % AO Workflow SS Erythrocyte distribution width (RBC) [Ratio] 12.8 % Invalid Interpretation Code 11.5 - 14.5 % AO Workflow SS Fibrin D-dimer DDU (PPP) [Mass/Vol] 465 ng/mL D-DU Invalid Interpretation Code 0 - 230 ng/mL D-DU AO Coag SS Hematocrit (Bld) [Volume fraction] 39.9 % Invalid Interpretation Code 37.0 - 47.0 % AO Workflow SS Hemoglobin (Bld) [Mass/Vol] 13.5 G/dL Invalid Interpretation Code 12.0 - 16.0 G/dL AO Workflow SS Lymphocyte, Absolute 3.0 103/mcL Invalid Interpretation Code 0.8 - 3.9 10^3/mcL AO Workflow SS Lymphocytes/100 WBC (Bld) 33.0 % Invalid Interpretation Code 10.0 - 50.0 % AO Workflow SS MCH (RBC) [Entitic mass] 29.5 pg Invalid Interpretation Code 27.0 - 31.2 pg AO Workflow SS MCHC 33.9 G/dL Invalid Interpretation Code 33.0 - 37.0 G/dL AO Workflow SS MCV (RBC) [Entitic vol] 87.1 fL Invalid Interpretation Code 80.0 - 94.0 fL AO Workflow SS Monocyte distribution width Auto (Bld) [Entitic vol] 17.52 Invalid Interpretation Code 0.00 - 20.00 AO Workflow SS Comment on above: Result Comment: For ED adult patients suspected of sepsis, MDW<=20.0 does not rule out sepsis or risk of sepsis Monocyte, Absolute 0.4 103/mcL Invalid Interpretation Code 0.2 - 1.0 10^3/mcL AO Workflow SS Monocytes/100 WBC (Bld) 4.9 % Invalid Interpretation Code 1.7 - 13.0 % AO Workflow SS Neutrophil, Absolute 5.3 103/mcL Invalid Interpretation Code 2.9 - 6.2 10^3/mcL AO Workflow SS Neutrophils/100 WBC (Bld) 57.9 % Invalid Interpretation Code 37.0 - 80.0 % AO Workflow SS Platelet mean volume (Bld) [Entitic vol] 8.0 fL Invalid Interpretation Code 7.4 - 10.4 fL AO Workflow SS Platelets (Bld) [#/Vol] 273 103/mcL Invalid Interpretation Code 130 - 400 10^3/mcL AO Workflow SS RBC (Bld) [#/Vol] 4.58 106/mcL Invalid Interpretation Code 4.20 - 5.40 10^6/mcL AO Workflow SS WBC (Bld) [#/Vol] 9.2 103/mcL Invalid Interpretation Code 4.6 - 10.8 10^3/mcL AO Workflow SS LABORATORYOrdered By: SYSTEM SYSTEM on 03-03-2022 Calcium [Mass/Vol] 9.0 mg/dL Invalid Interpretation Code 8.4 - 10.2 mg/dL AO ADM SS Chloride [Moles/Vol] 101 mmol/L Invalid Interpretation Code 98 - 107 mmol/L AO ADM SS CO2 [Moles/Vol] 28 mmol/L Invalid Interpretation Code 22 - 29 mmol/L AO ADM SS Creatinine [Mass/Vol] 0.69 mg/dL Invalid Interpretation Code 0.55 - 1.02 mg/dL AO ADM SS Electrolyte Balance 9.0 mEq/L Invalid Interpretation Code 4.0 - 15.0 mEq/L AO ADM SS GFR 116 ml/min/1.73sqm Invalid Interpretation Code AO Chemistry S GFR Non- 96 ml/min/1.73sqm Invalid Interpretation Code AO Chemistry S Glucose [Mass/Vol] 218 mg/dL Invalid Interpretation Code 70 - 105 mg/dL AO ADM SS Potassium [Moles/Vol] 3.6 mmol/L Invalid Interpretation Code 3.5 - 5.1 mmol/L AO ADM SS Sodium [Moles/Vol] 138 mmol/L Invalid Interpretation Code 136 - 145 mmol/L AO ADM SS Urea nitrogen [Mass/Vol] 10 mg/dL Invalid Interpretation Code 7 - 18 mg/dL AO ADM SS Urea nitrogen/Creatinine [Mass ratio] 14 ratio Invalid Interpretation Code 7 - 27 ratio AO ADM SS LABORATORYOrdered By: Lauren Reilly on 12-28-2021 Blood Glucose Testing Reason Routine (12/28/21 8:54 AM) [facility] Work Phone: Glucose [Mass/Vol] 209 mg/dL Invalid Interpretation Code 70 - 110 mg/dL [facility] Work Phone: LABORATORYOrdered By: Rico Haynes on 12-28-2021 HCG ( test) Ql Negative (12/28/21 7:16 AM) Invalid Interpretation Code AO Manual Urine SS test (u) int Not detected Invalid Interpretation Code AO Manual Urine SS LABORATORYOrdered By: Criss Eastman on 12-28-2021 Glucose [Mass/Vol] 224 mg/dL Invalid Interpretation Code 70 - 110 mg/dL [facility] Work Phone: HEMOGLOBIN A1C (POC)on 11-30 HbA1c (Bld) [Mass fraction] 7.6 % Abnormal 4.2 - 5.6 % [facility] UA DIP, URINE (POC)on 2021 BILIRUBIN UA (POCT) Negative Negative [facility] CLARITY UA (POCT) Clear [facility] COLOR UA (POCT) Yellow [facility] GLUCOSE UA (POCT) 500 mg/dL Abnormal Negative mg/dL [facility] HEMOGLOBIN/BLOOD UA (POCT) Negative Negative [facility] KETONE UA (POCT) Negative Negative mg/dL [facility] LEUKOCYTES UA (POCT) Negative Negative [facility] NITRITE UA (POCT) Negative [facility] PH UA (POCT) 5.5 4.5 - 8.0 [facility] Protein Ql (U) Negative Negative mg/dL [facility] SPECIFIC GRAVITY UA (POCT) 1.020 1.005 - 1.030 [facility] UROBILINOGEN UA (POCT) 0.2 E.U./dL Normal E.U./dL [facility] No Panel Informationon 11-16 IMPRESSION: No acute radiographic abnormalities seen in the right wrist or right forearm. Environmental Attorney: PSCB Transcribe Date/Time: Nov 16 2021 9:29A Dictated by : NEIDA MORRISON MD This examination was interpreted and the report reviewed and electronically signed by: NEIDA MORRISON MD on Nov 16 2021 9:39AM EST DIVISION OF RADIOLOGY Radiology Study observation (narrative) [facility] No Panel InformationOrdered By: [facility] Provider on 11-16-2021 [facility] XR Radius and Ulna - right A P and Lateralon 11-16-2021 * * *Final Report* * * DATE OF EXAM: Nov 16 2021 9:25AM WOX 5342 - XR FOREARM 2V AP/LAT RT / PROCEDURE REASON: multiple diagnoses * * * * Physician Interpretation * * * * EXAM TITLE: XR WRIST 3V PA/LAT/OBL RT, XR FOREARM 2V AP/LAT RT EXAM DATE/TIME: 11/16/2021 9:25 AM COMPARISON: None. CLINICAL INDICATION/HISTORY: Injury. TECHNIQUE: PA, lateral, and oblique views of right wrist are presented. AP and lateral views of the right radius and ulna are also presented. FINDINGS: Right wrist: No acute fractures or subluxations are noted. Negative ulnar variance is noted. The joint spaces are well preserved. The mineralization of the bones is normal. There is no significant soft tissue swelling. Right forearm: No acute fractures demonstrated in the right radius or right ulna. The soft tissue is within normal limits. DIVISION OF RADIOLOGY Provider, [facility] - 11/16/2021 * * *Final Report* * * DATE OF EXAM: Nov 16 2021 9:25AM WOX 5342 - XR FOREARM 2V AP/LAT RT / PROCEDURE REASON: multiple diagnoses * * * * Physician Interpretation * * * * EXAM TITLE: XR WRIST 3V PA/LAT/OBL RT, XR FOREARM 2V AP/LAT RT EXAM DATE/TIME: 11/16/2021 9:25 AM COMPARISON: None. CLINICAL INDICATION/HISTORY: Injury. TECHNIQUE: PA, lateral, and oblique views of right wrist are presented. AP and lateral views of the right radius and ulna are also presented. FINDINGS: Right wrist: No acute fractures or subluxations are noted. Negative ulnar variance is noted. The joint spaces are well preserved. The mineralization of the bones is normal. There is no significant soft tissue swelling. Right forearm: No acute fractures demonstrated in the right radius or right ulna. The soft tissue is within normal limits. IMPRESSION IMPRESSION: No acute radiographic abnormalities seen in the right wrist or right forearm. Environmental Attorney: PSCB Transcribe Date/Time: Nov 16 2021 9:29A Dictated by : NEIDA MORRISON MD This examination was interpreted and the report reviewed and electronically signed by: NEIDA MORRISON MD on Nov 16 2021 9:39AM [facility] XR Wrist - right PA and Late ral and Obliqueon 11-16-2021 * * *Final Report* * * DATE OF EXAM: Nov 16 2021 9:25AM WOX 5271 - XR WRIST 3V PA/LAT/OBL RT / PROCEDURE REASON: multiple diagnoses * * * * Physician Interpretation * * * * EXAM TITLE: XR WRIST 3V PA/LAT/OBL RT, XR FOREARM 2V AP/LAT RT EXAM DATE/TIME: 11/16/2021 9:25 AM COMPARISON: None. CLINICAL INDICATION/HISTORY: Injury. TECHNIQUE: PA, lateral, and oblique views of right wrist are presented. AP and lateral views of the right radius and ulna are also presented. FINDINGS: Right wrist: No acute fractures or subluxations are noted. Negative ulnar variance is noted. The joint spaces are well preserved. The mineralization of the bones is normal. There is no significant soft tissue swelling. Right forearm: No acute fractures demonstrated in the right radius or right ulna. The soft tissue is within normal limits. DIVISION OF RADIOLOGY Provider, [facility] - 11/16/2021 * * *Final Report* * * DATE OF EXAM: Nov 16 2021 9:25AM WOX 5271 - XR WRIST 3V PA/LAT/OBL RT / PROCEDURE REASON: multiple diagnoses * * * * Physician Interpretation * * * * EXAM TITLE: XR WRIST 3V PA/LAT/OBL RT, XR FOREARM 2V AP/LAT RT EXAM DATE/TIME: 11/16/2021 9:25 AM COMPARISON: None. CLINICAL INDICATION/HISTORY: Injury. TECHNIQUE: PA, lateral, and oblique views of right wrist are presented. AP and lateral views of the right radius and ulna are also presented. FINDINGS: Right wrist: No acute fractures or subluxations are noted. Negative ulnar variance is noted. The joint spaces are well preserved. The mineralization of the bones is normal. There is no significant soft tissue swelling. Right forearm: No acute fractures demonstrated in the right radius or right ulna. The soft tissue is within normal limits. IMPRESSION IMPRESSION: No acute radiographic abnormalities seen in the right wrist or right forearm. Environmental Attorney: VINEET Transcribe Date/Time: Nov 16 2021 9:29A Dictated by : NEIDA MORRISON MD This examination was interpreted and the report reviewed and electronically signed by: NEIDA MORRISON MD on Nov 16 2021 9:39AM [facility] GLUCOSE, BLOOD (POC)on 09-14 Glucose [Mass/Vol] 182 mg/dL Abnormal 74 - 99 mg/dL [facility] URINE (NURSE PERFO RM) (AV,FV,TAIWO,MC,ME,MM,SP)on 09-14-2021 Negative Preg Test Urine [facility] XR SHOULDER GENERAL 3V OR MO RE AP/TRUE AP/OTHER RIGHTon 09-14-2021 [facility] XR Shoulder - right 3 Viewso n 09-14-2021 IMPRESSION: Negative Environmental Attorney: VINEET Transcribe Date/Time: Sep 14 2021 11:29A Dictated by : SOCO RIVER MD This examination was interpreted and the report reviewed and electronically signed by: SOCO RIVER MD on Sep 14 2021 11:34AM EST [id number] N OF RADIOLOGY * * *Final Report* * * DATE OF EXAM: Sep 14 2021 10:15AM WOX 5253 - XR SHLDR >/=3V AP/EUGENIO AP/OTHR RT / PROCEDURE REASON: Acute pain of right shoulder * * * * Physician Interpretation * * * * PROCEDURE: Right shoulder INDICATION: Acute pain of right shoulder .Anterior right shoulder pain x 1 month. 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 TECHNIQUE: XR SHLDR >/=3V AP/EUGENIO AP/OTHR RT COMPARISON: None FINDINGS: No fractures or dislocations are seen. The bones, joint spaces and soft tissues are unremarkable. ZZZ_DO_NOT_ USE_DIVISIO N OF RADIOLOGY Provider, [facility] - 09/14/2021 * * *Final Report* * * DATE OF EXAM: Sep 14 2021 10:15AM WOX 5253 - XR SHLDR >/=3V AP/EUGENIO AP/OTHR RT / PROCEDURE REASON: Acute pain of right shoulder * * * * Physician Interpretation * * * * PROCEDURE: Right shoulder INDICATION: Acute pain of right shoulder .Anterior right shoulder pain x 1 month. 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 TECHNIQUE: XR SHLDR >/=3V AP/EUGENIO AP/OTHR RT COMPARISON: None FINDINGS: No fractures or dislocations are seen. The bones, joint spaces and soft tissues are unremarkable. IMPRESSION IMPRESSION: Negative Environmental Attorney: PSCB Transcribe Date/Time: Sep 14 2021 11:29A Dictated by : SOCO RIVER MD This examination was interpreted and the report reviewed and electronically signed by: SOCO RIVER MD on Sep 14 2021 11:34AM EST [facility] Radiology Study observation (narrative) [facility] XR Shoulder - right 3 ViewsO rdered By: Ccf Provider on 09-14-2021 [facility] XR Thoracic spine AP and Lat eralon 09-07-2021 IMPRESSION: Mild scoliotic curvature and mild degenerative change. No acute process. Environmental Attorney: PSCElsy Transcribe Date/Time: Sep 07 2021 3:20P Dictated by : ELVIS MORALES MD This examination was interpreted and the report reviewed and electronically signed by: ELVIS MORALES MD on Sep 07 2021 3:21PM EST ZZZ_DO_NOT_ USE_DIVISIO N OF RADIOLOGY * * *Final Report* * * DATE OF EXAM: Sep 07 2021 9:24AM WOX 5262 - XR THORACIC 2V AP/LAT / PROCEDURE REASON: Upper back pain * * * * Physician Interpretation * * * * EXAMINATION: XR THORACIC 2V AP/LAT HISTORY: Upper back pain from mid scapula to lower thoracic x 1 month. No injury. TECHNIQUE: XR THORACIC 2V AP/LAT Laterality: NOT APPLICABLE Number of different views (projections): 2 M: XB_1 COMPARISON: There are no prior thoracic spine series for comparison. Comparison is made to lateral view of a 2 view chest from 02 July 2021 and a lateral lumbar spine series from 12 September 2016 RESULT: Frontal and lateral weightbearing views of the thoracic spine demonstrate scoliotic curvature and mild multilevel degenerative change with vertebral body osteophytosis. There are no compression deformities and alignment is well maintained. There are no paraspinal abnormalities. ZZZ_DO_NOT_ USE_DIVISIO N OF RADIOLOGY Provider, Sara Abreu [facility] - 09/07/2021 * * *Final Report* * * DATE OF EXAM: Sep 07 2021 9:24AM WOX 5262 - XR THORACIC 2V AP/LAT / PROCEDURE REASON: Upper back pain * * * * Physician Interpretation * * * * EXAMINATION: XR THORACIC 2V AP/LAT HISTORY: Upper back pain from mid scapula to lower thoracic x 1 month. No injury. TECHNIQUE: XR THORACIC 2V AP/LAT Laterality: NOT APPLICABLE Number of different views (projections): 2 M: XB_1 COMPARISON: There are no prior thoracic spine series for comparison. Comparison is made to lateral view of a 2 view chest from 02 July 2021 and a lateral lumbar spine series from 12 September 2016 RESULT: Frontal and lateral weightbearing views of the thoracic spine demonstrate scoliotic curvature and mild multilevel degenerative change with vertebral body osteophytosis. There are no compression deformities and alignment is well maintained. There are no paraspinal abnormalities. IMPRESSION IMPRESSION: Mild scoliotic curvature and mild degenerative change. No acute process. Environmental Attorney: VINEET Transcribe Date/Time: Sep 07 2021 3:20P Dictated by : ELVIS MORALES MD This examination was interpreted and the report reviewed and electronically signed by: ELVIS MORALES MD on Sep 07 2021 3:21PM [facility] Radiology Study observation (narrative) [facility] XR Thoracic spine AP and Lat eralOrdered By: Ccf Provider on 09-07-2021 [facility] Absolute lymphocyte counton 07-03-2021 Lymphocytes Auto (Unsp spec) [#/Vol] 3.00 10*3/uL 0.83-4.51 [facility] Work Phone: Basophil percentageon 2021 Basophils/100 WBC (Bld) 0.6 % 0-1 [facility] Work Phone: Chloride [Moles/Vol] 104 mmol/L 98-107 [facility] Work Phone: Eosinophils/100 WBC (Bld) 2.7 % 0-5 [facility] Work Phone: Glucose [Mass/Vol] 240 mg/dL 74-106 [facility] Work Phone: Comment on above: Glucose result great er than or equal to 200 mg/dLsuggests DIABETES MELLITUS per A.D.A. criteria. Neutrophils (Bld) [#/Vol] 6.3 10*3/uL 2.0-7.7 [facility] Work Phone: Neutrophils/100 WBC (Bld) 61.5 % 47-70 [facility] Work Phone: Potassium [Moles/Vol] 3.5 mmol/L 3.5-5.1 [facility] Work Phone: Sodium [Moles/Vol] 137 mmol/L 136-145 [facility] Work Phone: WBC (Bld) [#/Vol] 10.2 10*3/uL 4.4-11.0 [facility] Work [facility]: [phone] Blood erythrocytes count (nu mber/volume)on 07-03-2021 RBC (Bld) [#/Vol] 4.84 10*6/uL 4.2-5.4 [facility] Work Phone: [phone] Blood hemoglobin measurement (mass/volume)on 07-03-2021 Hemoglobin (Bld) [Mass/Vol] 14.4 g/dL 12.0-15.0 [facility] Work Phone: Blood lymphocytes/100 leukoc yteson 07-03-2021 Lymphocytes/100 WBC (Bld) 29.5 % 19-41 [facility] Work Phone: Blood monocytes/100 leukocyt eson 07-03-2021 Monocytes/100 WBC (Bld) 5.2 % 0-10 [facility] Work Phone: Blood platelet mean volumeon 07-03-2021 Platelet mean volume (Bld) [Entitic vol] 9.9 fL 6.2-12.0 [facility] Work Phone: Determination of erythrocyte mean corpuscular volume (MCV)on 07-03-2021 MCV (RBC) [Entitic vol] 87.0 fL 81-99 [facility] Work Phone: Hematocrit Auto (Bld) [Volum e fraction]on 07-03-2021 Hematocrit (Bld) [Volume fraction] 42.1 % 37-47 [facility] Work Phone: Laboratory - Chemistry and C hemistry - challengeon 07-03-2021 CO2 [Moles/Vol] 25.0 mmol/L 21.0-32.0 [facility] Work Phone: Urea nitrogen/Creatinine [Mass ratio] 11.9 mg/mg 10-20 [facility] Work Phone: Laboratory - Hematology and Cell countson 07-03-2021 Erythrocyte distribution width (RBC) [Entitic vol] 36.9 fL 35.1-43.9 [facility] Work Phone: Erythrocyte distribution width (RBC) [Ratio] 11.7 % 11.6-14.6 [facility] Work Phone: Immature granulocytes/100 WBC (Bld) 0.500 % 0.0-0.9 [facility] Work Phone: Comment on above: IG% - Immature Granu locytes (promyelocytes, myelocytes and metamyelocytes) > 1% indicates that a LEFT SHIFT is Present. MCH (RBC) [Entitic mass] 29.8 pg 27.0-32.0 [facility] Work Phone: Nucleated RBC/100 WBC (Bld) [Ratio] 0 % 0-5 [facility] Work Phone: MCHC Auto (RBC) [Mass/Vol]on 07-03-2021 MCHC (RBC) [Mass/Vol] 34.2 g/dL 32-36 [facility] Work [facility]: No Panel Informationon 07-03 Estimated Creatinine Clearance Calc 107.33 ml/min [facility] Work Phone: Estimated GFR (MDRD) Amer 111 mL/min >60 [facility] Work Phone: Comment on above: GFR Calc Estimated GFR (MDRD) Non-Af Amer 92 mL/min >60 [facility] Work Phone: Comment on above: Non- GFR Calc Platelets bldon 07-03-2021 Platelets (Bld) [#/Vol] 298 10*3/uL 150-450 [facility] Work Phone: Serum or plasma calcium andrea urement (mass/volume)on 07-03-2021 Calcium [Mass/Vol] 9.2 mg/dL 8.5-10.1 [facility] Work Phone: Serum or plasma creatinine m easurement (mass/volume)on 07-03-2021 Creatinine [Mass/Vol] 0.75 mg/dL 0.55-1.02 [facility] Work Phone: Comment on above: The validity of the calculated GFR & GFRAA in patients over 70 years has not been determined. Clinical correlation is essential. Serum or plasma urea nitroge n measurement (mass/volume)on 07-03-2021 Urea nitrogen [Mass/Vol] 9 mg/dL 7-18 [facility] Work Phone: Thin prep Papanicolaou smear with manual screeningon 07-03-2021 Thin prep Papanicolaou smear with manual screening 8 5-15 [facility] Work Phone: XR CHEST 2V FRONTAL/LATon [facility] XR Chest PA and Lateralon IMPRESSION: No acute radiographic abnormality. Environmental Attorney: VINEET Transcribe Date/Time: Jul 02 2021 10:00A Dictated by : SOCO RIVER MD This examination was interpreted and the report reviewed and electronically signed by: SOCO RIVER MD on Jul 02 2021 10:01AM EST ZZZ_DO_NOT_ USE_DIVISIO N OF RADIOLOGY * * *Final Report* * * DATE OF EXAM: Jul 02 2021 9:58AM WOX 5291 - XR CHEST 2V FRONTAL/LAT / PROCEDURE REASON: multiple diagnoses * * * * Physician Interpretation * * * * EXAMINATION: CHEST RADIOGRAPH (2 VIEW FRONTAL & LATERAL) CLINICAL HISTORY: Cough Shortness of breath MQ: XC2_6 EXAM DATE/TIME: 07/02/2021 9:58 AM COMPARISON: No relevant prior studies available. RESULT: Lines, tubes, and devices: None. Lungs and pleura: No consolidation. No lung mass. No pleural effusion. No pneumothorax. Cardiomediastinal silhouette: Normal cardiomediastinal silhouette. Bones and soft tissues: Bilateral nipple piercings ZZZ_DO_NOT_ USE_DIVISIO N OF RADIOLOGY Provider, [facility] - 07/02/2021 * * *Final Report* * * DATE OF EXAM: Jul 02 2021 9:58AM WOX 5291 - XR CHEST 2V FRONTAL/LAT / PROCEDURE REASON: multiple diagnoses * * * * Physician Interpretation * * * * EXAMINATION: CHEST RADIOGRAPH (2 VIEW FRONTAL & LATERAL) CLINICAL HISTORY: Cough Shortness of breath MQ: XC2_6 EXAM DATE/TIME: 07/02/2021 9:58 AM COMPARISON: No relevant prior studies available. RESULT: Lines, tubes, and devices: None. Lungs and pleura: No consolidation. No lung mass. No pleural effusion. No pneumothorax. Cardiomediastinal silhouette: Normal cardiomediastinal silhouette. Bones and soft tissues: Bilateral nipple piercings IMPRESSION IMPRESSION: No acute radiographic abnormality. Environmental Attorney: PSCB Transcribe Date/Time: Jul 02 2021 10:00A Dictated by : SOCO RIVER MD This examination was interpreted and the report reviewed and electronically signed by: SOCO RIVER MD on Jul 02 2021 10:01AM EST [facility] Radiology Study observation (narrative) [facility] XR Chest PA and LateralOrder ed By: Ccf Provider on 07-02-2021 [facility] BACTERIAL VAGINOSIS AMPLIFIC ATIONon 06-06-2021 Lactobacillus crispatus+gasseri+javi senii + Gardnerella vaginalis + Atopobium vaginae rRNA FAUSTINA+probe Ql (Vag fld) Negative Negative for bacterial vaginosis [facility] C. trachomatis+N. gonorrhoea e DNA FAUSTINA+probe Ql (Unsp spec)on 06-06-2021 C. trachomatis DNA FAUSTINA+probe Ql (Unsp spec) Negative Negative for Chlamydia trachomatis by amplificaton [facility] N. gonorrhoeae DNA FAUSTINA+probe Ql (Unsp spec) Negative Negative for Neisseria gonorrhoeae by amplification [facility] MARCELO / TRICHOMONAS AMPLIF ICATIONon 06-06-2021 C. glabrata RNA FAUSTINA+probe Ql (Vag fld) Negative Negative for Marcelo glabrata [facility] Marcelo albicans, C. dubliniensis, C. parapsilosis, and C. tropicalis RNA FAUSTINA+probe Ql (Vag fld) Positive Abnormal Negative for Marcelo species [facility] T. vaginalis DNA FAUSTINA+probe Ql (Unsp spec) Negative Negative for Trichomonas vaginalis by amplification [facility] XR Ribs - left Views and Mona st PAon 07-07-2020 IMPRESSION: NO ACUTE RADIOGRAPHIC ABNORMALITY OR RIB FRACTURE. Environmental Attorney: PSCB Transcribe Date/Time: Jul 07 2020 4:26P Dictated by : GILL MERCADO MD This examination was interpreted and the report reviewed and electronically signed by: GILL MERCADO MD on Jul 07 2020 4:29PM [facility] DIVISION OF RADIOLOGY * * *Final Report* * * DATE OF EXAM: Jul 07 2020 4:24PM WOX 5243 - XR RIB/CHST 3V AP RIB/OBL/CHST L / PROCEDURE REASON: Rib pain on left side * * * * Physician Interpretation * * * * EXAMINATION: FRONTAL CHEST X-RAY, AP AND OBLIQUE X-RAYS OF LEFT RIBS History: Rib pain on left side M: XC2 Comparison: None. RESULT: 1. Lines, Tubes, and Devices: N/A 2. Lungs and Pleura: The lungs are clear. No pleural effusion or pneumothorax. 3. Cardiomediastinal silhouette: Within normal limits. 4. Bones: No acute osseous abnormality. - - DIVISION OF RADIOLOGY Provider, [facility] - 07/07/2020 * * *Final Report* * * DATE OF EXAM: Jul 07 2020 4:24PM WOX 5243 - XR RIB/CHST 3V AP RIB/OBL/CHST L / PROCEDURE REASON: Rib pain on left side * * * * Physician Interpretation * * * * EXAMINATION: FRONTAL CHEST X-RAY, AP AND OBLIQUE X-RAYS OF LEFT RIBS History: Rib pain on left side M: XC2 Comparison: None. RESULT: 1. Lines, Tubes, and Devices: N/A 2. Lungs and Pleura: The lungs are clear. No pleural effusion or pneumothorax. 3. Cardiomediastinal silhouette: Within normal limits. 4. Bones: No acute osseous abnormality. - - IMPRESSION IMPRESSION: NO ACUTE RADIOGRAPHIC ABNORMALITY OR RIB FRACTURE. Environmental Attorney: PSCB Transcribe Date/Time: Jul 07 2020 4:26P Dictated by : GILL MERCADO MD This examination was interpreted and the report reviewed and electronically signed by: GILL MERCADO MD on Jul 07 2020 4:29PM EST [facility] Radiology Study observation (narrative) [facility] XR Ribs - left Views and Mona st PAOrdered By: Ccf Provider on 07-07-2020 [facility] Vital Signs Date Time Vital Sign Value Performing Clinician Faci lity 11-09-2024 17:31-0400 Body mass index (BMI) [Ratio] 28.81 kg/m2 Catracho Wan APRN.[employer] Work Phone: [facility] 11-09-2024 17:31-0400 Body temperature 97.59 [degF] Catracho Wan APRN.[employer] Work Phone: [facility] 11-09-2024 17:31-0400 Body weight 88.5 kg Catracho Wan APRN.[employer] Work Phone: [facility] 11-09-2024 17:31-0400 Diastolic blood pressure 80 mm[Hg] Catracho Wan APRN.[employer] Work Phone: [facility] 11-09-2024 17:31-0400 Heart rate 68 /min Catracho Wan APRN.[employer] Work Phone: [facility] 11-09-2024 17:31-0400 Respiratory rate 16 /min Catracho Wan APRN.[employer] Work Phone: [facility] 11-09-2024 17:31-0400 SaO2% (BldA) [Mass fraction] 100 % Catracho Wan APRN.[employer] Work Phone: [facility] 11-09-2024 17:31-0400 Systolic blood pressure 132 mm[Hg] Catracho Wan APRN[employer] Work Phone: [facility] 08-27-2024 09:02-0400 Body mass index (BMI) [Ratio] 27.64 kg/m2 Mook Mcguire APRN.[employer] Work Phone: [facility] 08-27-2024 09:02-0400 Body weight 84.91 kg Mook Omi [employer] Work Phone: [facility] 08-27-2024 09:02-0400 Diastolic blood pressure 78 mm[Hg] Mook Omi [employer] Work Phone: [facility] 08-27-2024 09:02-0400 Heart rate 81 /min Mook Omi [employer] Work Phone: [facility] 08-27-2024 09:02-0400 Respiratory rate 12 /min Mook Omi [employer] Work Phone: [facility] 08-27-2024 09:02-0400 SaO2% (BldA) [Mass fraction] 99 % Mook Omi [employer] Work Phone: [facility] 08-27-2024 09:02-0400 Systolic blood pressure 138 mm[Hg] Mook Omi [employer] Work Phone: [facility] 08-13-2024 07:13-0400 Body mass index (BMI) [Ratio] 27.47 kg/m2 Sulema Brown PA-C Work Phone: [facility] 08-13-2024 07:13-0400 Body temperature 97.81 [degF] Sulema Brown PA-C Work Phone: [facility] 08-13-2024 07:13-0400 Body weight 84.37 kg Sulema Brown PA-C Work Phone: [facility] 08-13-2024 07:13-0400 Diastolic blood pressure 86 mm[Hg] Sulema Brown PA-C Work Phone: [facility] 08-13-2024 07:13-0400 Heart rate 85 /min Sulema Brown PA-C Work Phone: [facility] 08-13-2024 07:13-0400 Respiratory rate 18 /min Sulema Brown PA-C Work Phone: [facility] 08-13-2024 07:13-0400 SaO2% (BldA) [Mass fraction] 100 % Sulema Brown PA-C Work Phone: [facility] 08-13-2024 07:13-0400 Systolic blood pressure 136 mm[Hg] Sulema Brown PA-C Work Phone: [facility] 07-20-2024 08:27-0400 Body mass index (BMI) [Ratio] 26.99 kg/m2 Theresa Bogner PA-C Work Phone: [facility] 07-20-2024 08:27-0400 Body temperature 98.1 [degF] Theresa Bogner PA-C Work Phone: [facility] 07-20-2024 08:27-0400 Body weight 82.92 kg Theresa Bogner PA-C Work Phone: [facility] 07-20-2024 08:27-0400 Diastolic blood pressure 76 mm[Hg] Theresa Bogner PA-C Work Phone: [facility] 07-20-2024 08:27-0400 Heart rate 89 /min Theresa Bogner PA-C Work Phone: [facility] 07-20-2024 08:27-0400 Respiratory rate 16 /min Theresa Bogner PA-C Work Phone: [facility] 07-20-2024 08:27-0400 SaO2% (BldA) [Mass fraction] 100 % Theresa Bogner PA-C Work Phone: [facility] 07-20-2024 08:27-0400 Systolic blood pressure 115 mm[Hg] Theresa Bogner PA-C Work Phone: [facility] 07-19-2024 08:15-0400 Body height 175.3 cm GAVI DOTSON MD [facility] 07-19-2024 08:15-0400 Body temperature 98.6 [degF] GAVI DOTSON MD [facility] 07-19-2024 08:15-0400 Body weight 81.8 kg GAVI DOTSON MD [facility] 07-19-2024 08:15-0400 Diastolic Blood Pressure Non-Invasive 89 mm[Hg] GAVI DOTSON MD [facility] 07-19-2024 08:15-0400 Heart rate 100 /min GAVI DOTSON MD [facility] 07-19-2024 08:15-0400 Respiratory rate 18 /min GAVI DOTSON MD [facility] 07-19-2024 08:15-0400 Systolic Blood Pressure Non-Invasive 140 mm[Hg] GAVI DOTSON MD [facility] 07-06-2024 13:08-0400 Body mass index (BMI) [Ratio] 27.67 kg/m2 Bree Montalvo APRN.[employer] Work Phone: [facility] 07-06-2024 13:08-0400 Body weight 85 kg Bree Montalvo APRN.[employer] Work Phone: [facility] 07-06-2024 13:08-0400 Diastolic blood pressure 87 mm[Hg] Bree Montalvo APRN.[employer] Work Phone: [facility] 07-06-2024 13:08-0400 Heart rate 85 /min Bree Montalvo APRN.[employer] Work Phone: [facility] 07-06-2024 13:08-0400 Systolic blood pressure 136 mm[Hg] Bree Montalvo APRN.[employer] Work Phone: [facility] 05-25-2024 17:56-0400 Body mass index (BMI) [Ratio] 28.65 kg/m2 Catracho Wan APRN.[employer] Work Phone: [facility] 05-25-2024 17:56-0400 Body temperature 97.39 [degF] Catracho Wan APRN.[employer] Work Phone: [facility] 05-25-2024 17:56-0400 Body weight 88 kg Catracho Wan APRN.[employer] Work Phone: [facility] 05-25-2024 17:56-0400 Diastolic blood pressure 96 mm[Hg] Catracho Wan APRN.[employer] Work Phone: [facility] 05-25-2024 17:56-0400 Heart rate 89 /min Catracho Wan APRN.[employer] Work Phone: [facility] 05-25-2024 17:56-0400 Respiratory rate 20 /min Catracho Wan APRN.[employer] Work Phone: [facility] 05-25-2024 17:56-0400 SaO2% (BldA) [Mass fraction] 100 % Catracho Wan APRN.[employer] Work Phone: [facility] 05-25-2024 17:56-0400 Systolic blood pressure 155 mm[Hg] Catracho Wan APRN.[employer] Work Phone: [facility] 05-06-2024 17:37-0500 Body mass index (BMI) [Ratio] 28.98 kg/m2 Yaquelin Ta [employer] Work Phone: [facility] 05-06-2024 17:37-0500 Body temperature 98.2 [degF] Yaquelin Chris-Bryan [employer] Work Phone: [facility] 05-06-2024 17:37-0500 Body weight 89 kg Yaquelin Ta APRN.[employer] Work Phone: [facility] 05-06-2024 17:37-0500 Diastolic blood pressure 96 mm[Hg] Yaquelin Praisler-Wood [employer] Work Phone: [facility] 05-06-2024 17:37-0500 Heart rate 79 /min Yaquelin Praranler-Wood [employer] Work Phone: [facility] 05-06-2024 17:37-0500 Respiratory rate 20 /min Yaquelin Praisler-Wood [employer] Work Phone: [facility] 05-06-2024 17:37-0500 SaO2% (BldA) [Mass fraction] 100 % Yaquelin Praisler-Wood [employer] Work Phone: [facility] 05-06-2024 17:37-0500 Systolic blood pressure 159 mm[Hg] Yaquelin Praisler-Wood [employer] Work Phone: [facility] 03-28-2024 14:54-0500 Body mass index (BMI) [Ratio] 28.98 kg/m2 Ankur Matias [employer] Work Phone: [facility] 03-28-2024 14:54-0500 Body temperature 98.29 [degF] Ankur Matias [employer] Work Phone: [facility] 03-28-2024 14:54-0500 Body weight 89 kg Ankur Matias [employer] Work Phone: [facility] 03-28-2024 14:54-0500 Diastolic blood pressure 93 mm[Hg] Ankur Matias [employer] Work Phone: [facility] 03-28-2024 14:54-0500 Heart rate 86 /min Ankur Starkslehoward [employer] Work Phone: [facility] 03-28-2024 14:54-0500 Respiratory rate 18 /min Ankur Starkslehoward [employer] Work Phone: [facility] 03-28-2024 14:54-0500 SaO2% (BldA) [Mass fraction] 100 % Ankur Starkslehoward [employer] Work Phone: [facility] 03-28-2024 14:54-0500 Systolic blood pressure 165 mm[Hg] Ankur Matias [employer] Work Phone: [facility] 03-01-2024 13:59-0500 Body height 175.3 cm Tori Jase [employer] Work Phone: [facility] 03-01-2024 13:59-0500 Body mass index (BMI) [Ratio] 28.21 kg/m2 Tori Jase [employer] Work Phone: [facility] 03-01-2024 13:59-0500 Body temperature 98.4 [degF] Tori Jase [employer] Work Phone: [facility] 03-01-2024 13:59-0500 Body weight 86.64 kg Tori Jase [employer] Work Phone: [facility] 03-01-2024 13:59-0500 Diastolic blood pressure 86 mm[Hg] Tori Jase [employer] Work Phone: [facility] 03-01-2024 13:59-0500 Heart rate 94 /min Tori Jase [employer] Work Phone: [facility] 03-01-2024 13:59-0500 Respiratory rate 12 /min Tori Jase [employer] Work Phone: [facility] 03-01-2024 13:59-0500 SaO2% (BldA) [Mass fraction] 100 % Tori Jase [employer] Work Phone: [facility] 03-01-2024 13:59-0500 Systolic blood pressure 130 mm[Hg] Tori Jase [employer] Work Phone: [facility] 02-27-2024 07:14-0500 Body mass index (BMI) [Ratio] 27.97 kg/m2 Polly Grant [employer] Work Phone: [facility] 02-27-2024 07:14-0500 Body weight 85.91 kg Polly Grant [employer] Work Phone: [facility] 02-27-2024 07:14-0500 Diastolic blood pressure 80 mm[Hg] Polly Grant [employer] Work Phone: [facility] 02-27-2024 07:14-0500 Heart rate 86 /min Polly Grant [employer] Work Phone: [facility] 02-27-2024 07:14-0500 Respiratory rate 14 /min Polly Grant [employer] Work Phone: [facility] 02-27-2024 07:14-0500 SaO2% (BldA) [Mass fraction] 100 % Polly Grant [employer] Work Phone: [facility] 02-27-2024 07:14-0500 Systolic blood pressure 136 mm[Hg] Polly Grant [employer] Work Phone: [facility] 02-24-2024 16:51-0500 Diastolic blood pressure 90 mm[Hg] Teo Linder MD Work Phone: [facility] 02-24-2024 16:51-0500 Systolic blood pressure 142 mm[Hg] Teo Linder MD Work Phone: [facility] 02-24-2024 16:48-0500 Body mass index (BMI) [Ratio] 28.03 kg/m2 Teo Linder MD Work Phone: [facility] 02-24-2024 16:48-0500 Body weight 86.1 kg Teo Linder MD Work Phone: [facility] 02-24-2024 16:48-0500 Heart rate 80 /min Teo Linder MD Work Phone: [facility] 02-24-2024 16:48-0500 Respiratory rate 16 /min Teo Linder MD Work Phone: [facility] 02-08-2024 14:10-0500 Body mass index (BMI) [Ratio] 28 kg/m2 Jessica Chandler [employer] Work Phone: [facility] 02-08-2024 14:10-0500 Body temperature 97.9 [degF] Chandler [employer] Work Phone: [facility] 02-08-2024 14:10-0500 Body weight 86 kg Chandler [employer] COOK Work Phone: [facility] 02-08-2024 14:10-0500 Diastolic blood pressure 86 mm[Hg] Chandler [employer] Work Phone: [facility] 02-08-2024 14:10-0500 Heart rate 81 /min Chandler [employer] Work Phone: [facility] 02-08-2024 14:10-0500 Respiratory rate 18 /min Chandler [employer] Work Phone: [facility] 02-08-2024 14:10-0500 SaO2% (BldA) [Mass fraction] 99 % Chandler [employer] Work Phone: [facility] 02-08-2024 14:10-0500 Systolic blood pressure 148 mm[Hg] Chandler [employer] Work Phone: [facility] 02-02-2024 18:26-0500 Body mass index (BMI) [Ratio] 29.01 kg/m2 Maria R Athy PA-C Work Phone: [facility] 02-02-2024 18:26-0500 Body temperature 97.59 [degF] Maria R Athy PA-C Work Phone: [facility] 02-02-2024 18:26-0500 Body weight 89.1 kg Maria R Athy PA-C Work Phone: [facility] 02-02-2024 18:26-0500 Diastolic blood pressure 84 mm[Hg] Maria R Athy PA-C Work Phone: [facility] 02-02-2024 18:26-0500 Heart rate 84 /min Maria R Athy PA-C Work Phone: [facility] 02-02-2024 18:26-0500 Respiratory rate 16 /min Maria R Athy PA-C Work Phone: [facility] 02-02-2024 18:26-0500 SaO2% (BldA) [Mass fraction] 99 % Maria R Athy PA-C Work Phone: [facility] 02-02-2024 18:26-0500 Systolic blood pressure 126 mm[Hg] Maria R Athy PA-C Work Phone: [facility] 01-23-2024 07:19-0500 Body mass index (BMI) [Ratio] 27.47 kg/m2 Kevin Witt [employer] Work Phone: [facility] 01-23-2024 07:19-0500 Body weight 84.37 kg Kevin Witt [employer] Work Phone: [facility] 01-23-2024 07:19-0500 Diastolic blood pressure 92 mm[Hg] Kevin Witt [employer] Work Phone: [facility] 01-23-2024 07:19-0500 Heart rate 80 /min Kevin Witt [employer] Work Phone: [facility] 01-23-2024 07:19-0500 Respiratory rate 16 /min Kevin Witt [employer] Work Phone: [facility] 01-23-2024 07:19-0500 SaO2% (BldA) [Mass fraction] 96 % Kevin Witt [employer] Work Phone: [facility] 01-23-2024 07:19-0500 Systolic blood pressure 140 mm[Hg] Kevin Witt [employer] Work Phone: [facility] 01-12-2024 09:48-0400 Body mass index (BMI) [Ratio] 27.9 kg/m2 Karley Jimenez [employer] Work Phone: [facility] 01-12-2024 09:48-0400 Body weight 85.7 kg Karley Jimenez [employer] Work Phone: [facility] 01-12-2024 09:48-0400 Diastolic blood pressure 86 mm[Hg] Karley Denissean [employer] Work Phone: [facility] 01-12-2024 09:48-0400 Heart rate 70 /min Karley Denissean [employer] Work Phone: [facility] 01-12-2024 09:48-0400 Respiratory rate 16 /min Karley Suppan [employer] Work Phone: [facility] 01-12-2024 09:48-0400 SaO2% (BldA) [Mass fraction] 98 % Karley Jimenez [employer] Work Phone: [facility] 01-12-2024 09:48-0400 Systolic blood pressure 138 mm[Hg] Karley Jimenez [employer] Work Phone: [facility] 12-24-2023 17:16-0400 Body mass index (BMI) [Ratio] 28.16 kg/m2 Catracho Wan [employer]N.[employer] Work Phone: [facility] 12-24-2023 17:16-0400 Body temperature 97.81 [degF] Catracho Wan [employer] Work Phone: [facility] 12-24-2023 17:16-0400 Body weight 86.5 kg Catracho Wan [employer] Work Phone: [facility] 12-24-2023 17:16-0400 Diastolic blood pressure 82 mm[Hg] Catracho Wan [employer] Work Phone: [facility] 12-24-2023 17:16-0400 Heart rate 78 /min Catracho Wan [employer] Work Phone: [facility] 12-24-2023 17:16-0400 Respiratory rate 16 /min Catracho Wan [employer] Work Phone: [facility] 12-24-2023 17:16-0400 SaO2% (BldA) [Mass fraction] 98 % Catracho Wan [employer] Work Phone: [facility] 12-24-2023 17:16-0400 Systolic blood pressure 128 mm[Hg] Catracho Wan [employer] Work Phone: [facility] 11-21-2023 10:41-0400 Body mass index (BMI) [Ratio] 28.86 kg/m2 Ilana Glory [employer] Work Phone: [facility] 11-21-2023 10:41-0400 Body weight 88.63 kg Ilana Glory [employer] Work Phone: [facility] 11-21-2023 10:41-0400 Diastolic blood pressure 86 mm[Hg] Ilana Glory [employer] Work Phone: [facility] 11-21-2023 10:41-0400 Heart rate 84 /min Ilana Glory [employer] Work Phone: [facility] 11-21-2023 10:41-0400 Respiratory rate 16 /min Ilana Glory [employer] Work Phone: [facility] 11-21-2023 10:41-0400 SaO2% (BldA) [Mass fraction] 100 % Ilana Glory [employer] Work Phone: [facility] 11-21-2023 10:41-0400 Systolic blood pressure 138 mm[Hg] Ilana Glory [employer] Work Phone: [facility] 11-16-2023 17:56-0400 Diastolic Blood Pressure Non-Invasive 92 mm[Hg] DONALDO VILLAGOMEZ DO [facility] 11-16-2023 17:56-0400 Heart rate 78 /min DONALDO VILLAGOMEZ DO [facility] 11-16-2023 17:56-0400 Reason For Taking VItal Signs DONALDO VILLAGOMEZ DO [facility] 11-16-2023 17:56-0400 Respiratory rate 16 /min DONALDO VILLAGOMEZ DO [facility] 11-16-2023 17:56-0400 Systolic Blood Pressure Non-Invasive 150 mm[Hg] DONALDO VILLAGOMEZ DO [facility] 11-16-2023 16:16-0400 Body temperature 96.98 [degF] DONALDO VILLAGOMEZ DO [facility] 11-16-2023 16:16-0400 Diastolic Blood Pressure Non-Invasive 90 mm[Hg] DONALDO VILLAGOMEZ DO [facility] 11-16-2023 16:16-0400 Heart rate 87 /min DONALDO VILLAGOMEZ DO [facility] 11-16-2023 16:16-0400 Respiratory rate 16 /min DONALDO VILLAGOMEZ DO [facility] 11-16-2023 16:16-0400 Systolic Blood Pressure Non-Invasive 148 mm[Hg] DONALDO VILLAGOMEZ DO [facility] 11-11-2023 11:09-0400 Body height 175.3 cm [facility] 11-11-2023 11:09-0400 Body mass index (BMI) [Ratio] 27.47 kg/m2 [facility] 11-11-2023 11:09-0400 Body weight 84.37 kg [facility] 11-11-2023 11:09-0400 Respiratory rate 18 /min [facility] 10-29-2023 15:35-0400 Body mass index (BMI) [Ratio] 28.06 kg/m2 Karlos Alexis MD Work Phone: [facility] 10-29-2023 15:35-0400 Body weight 86.18 kg Karlos Alexis MD Work Phone: [facility] 10-29-2023 15:35-0400 Diastolic blood pressure 86 mm[Hg] Karlos Alexis MD Work Phone: [facility] 10-29-2023 15:35-0400 Heart rate 94 /min Karlos Alexis MD Work Phone: [facility] 10-29-2023 15:35-0400 Respiratory rate 17 /min Karlos Alexis MD Work Phone: [facility] 10-29-2023 15:35-0400 SaO2% (BldA) [Mass fraction] 99 % Karlos Alexis MD Work Phone: [facility] 10-29-2023 15:35-0400 Systolic blood pressure 130 mm[Hg] Karlos Alexis MD Work Phone: [facility] 10-29-2023 08:50-0400 Body mass index (BMI) [Ratio] 28.16 kg/m2 Jaron Ayala MD Work Phone: [facility] 10-29-2023 08:50-0400 Body temperature 97 [degF] Jaron Ayala MD Work Phone: [facility] 10-29-2023 08:50-0400 Body weight 86.5 kg Jaron Ayala MD Work Phone: [facility] 10-29-2023 08:50-0400 Diastolic blood pressure 84 mm[Hg] Jaron Ayala MD Work Phone: [facility] 10-29-2023 08:50-0400 Heart rate 66 /min Jaron Ayala MD Work Phone: [facility] 10-29-2023 08:50-0400 Respiratory rate 18 /min Jaron Ayala MD Work Phone: [facility] 10-29-2023 08:50-0400 SaO2% (BldA) [Mass fraction] 100 % Jaron Ayala MD Work Phone: [facility] 10-29-2023 08:50-0400 Systolic blood pressure 144 mm[Hg] Jaron Ayala MD Work Phone: [facility] 10-27-2023 18:07-0400 Body mass index (BMI) [Ratio] 28.52 kg/m2 Yaquelin Praisler-Wood [employer] Work Phone: [facility] 10-27-2023 18:07-0400 Body temperature 98.1 [degF] Yaquelin Praisler-Wood [employer] Work Phone: [facility] 10-27-2023 18:07-0400 Body weight 87.6 kg Yaquelin Praisler-Wood [employer] Work Phone: [facility] 10-27-2023 18:07-0400 Diastolic blood pressure 90 mm[Hg] Yaquelin Praisler-Wood [employer] Work Phone: [facility] 10-27-2023 18:07-0400 Heart rate 88 /min Yaquelin Praisler-Wood [employer] Work Phone: [facility] 10-27-2023 18:07-0400 Respiratory rate 21 /min Yaquelin Praisler-Wood [employer] Work Phone: [facility] 10-27-2023 18:07-0400 SaO2% (BldA) [Mass fraction] 98 % Yaquelin Praisler-Wood [employer] Work Phone: [facility] 10-27-2023 18:07-0400 Systolic blood pressure 148 mm[Hg] Yaquelin Praisler-Wood [employer] Work Phone: [facility] 10-22-2023 15:53-0400 Body mass index (BMI) [Ratio] 27.91 kg/m2 Polly Grant [employer] Work Phone: [facility] 10-22-2023 15:53-0400 Body weight 85.73 kg Polly Grant [employer] Work Phone: [facility] 10-22-2023 15:53-0400 Diastolic blood pressure 80 mm[Hg] Polly Grant [employer] Work Phone: [facility] 10-22-2023 15:53-0400 Heart rate 68 /min Polly Grant [employer] Work Phone: [facility] 10-22-2023 15:53-0400 Respiratory rate 16 /min Polly Grant [employer] Work Phone: [facility] 10-22-2023 15:53-0400 Systolic blood pressure 138 mm[Hg] Polly Grant [employer] Work Phone: [facility] 10-17-2023 14:14-0400 Body mass index (BMI) [Ratio] 27.91 kg/m2 Rupa Dillan [employer] Work Phone: [facility] 10-17-2023 14:14-0400 Body weight 85.73 kg Rupa Dillan [employer] Work Phone: [facility] 10-17-2023 14:14-0400 Diastolic blood pressure 86 mm[Hg] Rupa Hampshire [employer] Work Phone: [facility] 10-17-2023 14:14-0400 Systolic blood pressure 144 mm[Hg] Rupa Hampshire [employer] Work Phone: [facility] 10-03-2023 13:46-0400 Body mass index (BMI) [Ratio] 28.21 kg/m2 Polly Grant [employer] Work Phone: [facility] 10-03-2023 13:46-0400 Body temperature 97 [degF] Polly Grant [employer] Work Phone: [facility] 10-03-2023 13:46-0400 Body weight 86.64 kg Polly Grant [employer] Work Phone: [facility] 10-03-2023 13:46-0400 Diastolic blood pressure 80 mm[Hg] Polly Grant [employer] Work Phone: [facility] 10-03-2023 13:46-0400 Heart rate 64 /min Polly Grant [employer] Work Phone: [facility] 10-03-2023 13:46-0400 Respiratory rate 16 /min Polly Grant [employer] Work Phone: [facility] 10-03-2023 13:46-0400 Systolic blood pressure 122 mm[Hg] Polly Grant [employer] Work Phone: [facility] 09-08-2023 10:39-0400 Body mass index (BMI) [Ratio] 28.8 kg/m2 Kevin Eduar [employer] Work Phone: [facility] 09-08-2023 10:39-0400 Body weight 88.45 kg Kevin Eduar [employer] Work Phone: [facility] 09-08-2023 10:39-0400 Diastolic blood pressure 84 mm[Hg] Kevin Eduar [employer] Work Phone: [facility] 09-08-2023 10:39-0400 Heart rate 80 /min Kevin Eduar [employer] Work Phone: [facility] 09-08-2023 10:39-0400 Respiratory rate 14 /min Kevin Eduar [employer] Work Phone: [facility] 09-08-2023 10:39-0400 Systolic blood pressure 125 mm[Hg] Kevin Eduar [employer] Work Phone: [facility] 08-31-2023 11:27-0400 Body mass index (BMI) [Ratio] 29.11 kg/m2 Aster Elliott [employer] Work Phone: [facility] 08-31-2023 11:27-0400 Body temperature 97.9 [degF] Aster Elliott [employer] Work Phone: [facility] 08-31-2023 11:27-0400 Body weight 89.4 kg Aster Earl [employer] Work Phone: [facility] 08-31-2023 11:27-0400 Diastolic blood pressure 92 mm[Hg] Aster Earl [employer] Work Phone: [facility] 08-31-2023 11:27-0400 Heart rate 93 /min Aster Earl [employer] Work Phone: [facility] 08-31-2023 11:27-0400 Respiratory rate 20 /min Aster Earl [employer] Work Phone: [facility] 08-31-2023 11:27-0400 SaO2% (BldA) [Mass fraction] 100 % Aster Earl [employer] Work Phone: [facility] 08-31-2023 11:27-0400 Systolic blood pressure 141 mm[Hg] Aster Earl [employer] Work Phone: [facility] 08-18-2023 11:52-0400 Body mass index (BMI) [Ratio] 29.83 kg/m2 Karley Suppan [employer] Work Phone: [facility] 08-18-2023 11:52-0400 Body weight 91.63 kg Karley Suppan [employer] Work Phone: [facility] 08-18-2023 11:52-0400 Diastolic blood pressure 88 mm[Hg] Karley Suppan [employer] Work Phone: [facility] 08-18-2023 11:52-0400 Heart rate 86 /min Karley Suppan [employer] Work Phone: [facility] 08-18-2023 11:52-0400 Respiratory rate 16 /min Karley Suppan [employer] Work Phone: [facility] 08-18-2023 11:52-0400 SaO2% (BldA) [Mass fraction] 100 % Karley Suppan [employer] Work Phone: [facility] 08-18-2023 11:52-0400 Systolic blood pressure 138 mm[Hg] Karley Jimenez [employer] Work Phone: [facility] 08-06-2023 15:19-0400 Body mass index (BMI) [Ratio] 29.68 kg/m2 Marlin Ramires MD Work Phone: [facility] 08-06-2023 15:19-0400 Body weight 91.17 kg Marlin Ramires MD Work Phone: [facility] 08-06-2023 15:19-0400 Diastolic blood pressure 80 mm[Hg] Marlin Ramires MD Work Phone: [facility] 08-06-2023 15:19-0400 Systolic blood pressure 120 mm[Hg] Marlin Ramires MD Work Phone: [facility] 07-23-2023 15:42-0400 Body mass index (BMI) [Ratio] 30.57 kg/m2 Ilana Herrera [employer] Work Phone: [facility] 07-23-2023 15:42-0400 Body weight 93.89 kg Ilana Herrera [employer] Work Phone: [facility] 07-23-2023 15:42-0400 Diastolic blood pressure 84 mm[Hg] Ilana Estevesman [employer] Work Phone: [facility] 07-23-2023 15:42-0400 Heart rate 81 /min Ilana Herrera [employer] Work Phone: [facility] 07-23-2023 15:42-0400 SaO2% (BldA) [Mass fraction] 100 % Ilana Estevesman [employer] Work Phone: [facility] 07-23-2023 15:42-0400 Systolic blood pressure 132 mm[Hg] Ilana Estevesman [employer] Work Phone: [facility] 07-16-2023 15:14-0400 Body mass index (BMI) [Ratio] 30.42 kg/m2 Natasha Condon MD Work Phone: [facility] 07-16-2023 15:14-0400 Body temperature 98.8 [degF] Natasha Condon MD Work Phone: [facility] 07-16-2023 15:14-0400 Body weight 93.44 kg Natasha Condon MD Work Phone: [facility] 07-16-2023 15:14-0400 Diastolic blood pressure 90 mm[Hg] Natasha Condon MD Work Phone: [facility] 07-16-2023 15:14-0400 Heart rate 92 /min Natasha Condon MD Work Phone: [facility] 07-16-2023 15:14-0400 SaO2% (BldA) [Mass fraction] 99 % Natasha Condon MD Work Phone: [facility] 07-16-2023 15:14-0400 Systolic blood pressure 138 mm[Hg] Natasha Condon MD Work Phone: [facility] 07-04-2023 10:55-0400 Body temperature 97.5 [degF] [facility] 07-04-2023 10:55-0400 Diastolic blood pressure 72 mm[Hg] [facility] 07-04-2023 10:55-0400 Heart rate 88 /min [facility] 07-04-2023 10:55-0400 Respiratory rate 14 /min [facility] 07-04-2023 10:55-0400 SaO2% (BldA) [Mass fraction] 98 % [facility] 07-04-2023 10:55-0400 Systolic blood pressure 132 mm[Hg] [facility] 07-04-2023 07:24-0400 Body height 175.26 cm [facility] 07-04-2023 07:24-0400 Body mass index (BMI) [Ratio] 31 kg/m2 [facility] 07-04-2023 07:24-0400 Body weight 95.25 kg [facility] 06-17-2023 09:58-0400 Body weight 95.25 kg Karley Suppan [employer] Work Phone: [facility] 06-17-2023 09:58-0400 Diastolic blood pressure 80 mm[Hg] Karley Suppan [employer] Work Phone: [facility] 06-17-2023 09:58-0400 Heart rate 72 /min Karley Suppan [employer] Work Phone: [facility] 06-17-2023 09:58-0400 Respiratory rate 16 /min Karley Suppan [employer] Work Phone: [facility] 06-17-2023 09:58-0400 SaO2% (BldA) [Mass fraction] 99 % Karley Suppan [employer] Work Phone: [facility] 06-17-2023 09:58-0400 Systolic blood pressure 132 mm[Hg] Karley Suppan [employer] Work Phone: [facility] 06-16-2023 17:44-0400 Body temperature 97.2 [degF] Yaquelin Praisler-Wood [employer] Work Phone: [facility] 06-16-2023 17:44-0400 Body weight 95.8 kg Yaquelin Praisler-Wood [employer] Work Phone: [facility] 06-16-2023 17:44-0400 Diastolic blood pressure 72 mm[Hg] Yaquelin Praisler-Wood [employer] Work Phone: [facility] 06-16-2023 17:44-0400 Heart rate 72 /min Yaquelin Praisler-Wood [employer] Work Phone: [facility] 06-16-2023 17:44-0400 Respiratory rate 16 /min Yaquelin Praisler-Wood [employer] Work Phone: [facility] 06-16-2023 17:44-0400 SaO2% (BldA) [Mass fraction] 98 % Yaquelin Chris-Bryan [employer] Work Phone: [facility] 06-16-2023 17:44-0400 Systolic blood pressure 134 mm[Hg] Yaquelin Chris-Wood [employer] Work Phone: [facility] 06-04-2023 08:44-0400 Diastolic blood pressure 100 mm[Hg] Polly Grant [employer] Work Phone: [facility] 06-04-2023 08:44-0400 Heart rate 62 /min Polly Grant [employer] Work Phone: [facility] 06-04-2023 08:44-0400 Systolic blood pressure 140 mm[Hg] Polly Grant [employer] Work Phone: [facility] 06-04-2023 08:07-0400 Body weight 94.89 kg Polly Grant [employer] Work Phone: [facility] 06-04-2023 08:07-0400 Respiratory rate 14 /min Polly Grant [employer] Work Phone: [facility] 05-22-2023 10:12-0500 Body weight 93.26 kg Natasha Condon MD Work Phone: [facility] 05-22-2023 10:12-0500 Diastolic blood pressure 70 mm[Hg] Natasha Condon MD Work Phone: [facility] 05-22-2023 10:12-0500 Systolic blood pressure 118 mm[Hg] Natasha Condon MD Work Phone: [facility] 05-21-2023 08:09-0500 Body weight 92.08 kg Carolann Menon [employer] Work Phone: [facility] 05-21-2023 08:09-0500 Diastolic blood pressure 80 mm[Hg] Carolann Haury [employer] Work Phone: [facility] 05-21-2023 08:09-0500 Systolic blood pressure 120 mm[Hg] Carolann Haury [employer] Work Phone: [facility] 05-02-2023 09:00-0500 Diastolic blood pressure 94 mm[Hg] Farrukh Golias PT Work Phone: [facility] 05-02-2023 09:00-0500 Heart rate 79 /min Farrukh Golias PT Work Phone: [facility] 05-02-2023 09:00-0500 Systolic blood pressure 142 mm[Hg] Farrukh Golias PT Work Phone: [facility] 04-25-2023 12:48-0500 Body weight 91.63 kg Polly Grant [employer] Work Phone: [facility] 04-25-2023 12:48-0500 Diastolic blood pressure 80 mm[Hg] Polly Grant [employer] Work Phone: [facility] 04-25-2023 12:48-0500 Heart rate 64 /min Polly Grant [employer] Work Phone: [facility] 04-25-2023 12:48-0500 Respiratory rate 14 /min Polly Grant [employer] Work Phone: [facility] 04-25-2023 12:48-0500 Systolic blood pressure 120 mm[Hg] Polly Grant [employer] Work Phone: [facility] 02-14-2023 17:06-0500 Diastolic blood pressure 88 mm[Hg] Brad Herman MD Work Phone: [facility] 02-14-2023 17:06-0500 Systolic blood pressure 120 mm[Hg] Brad Herman MD Work Phone: [facility] 02-14-2023 16:46-0500 Body height 175.3 cm Brad Herman MD Work Phone: [facility] 02-14-2023 16:46-0500 Body weight 90.72 kg Brad Herman MD Work Phone: [facility] 02-14-2023 16:46-0500 Heart rate 88 /min Brad Herman MD Work Phone: [facility] 02-14-2023 16:46-0500 SaO2% (BldA) [Mass fraction] 99 % Brad Herman MD Work Phone: [facility] 01-01-2023 10:53-0400 Body temperature 98.8 [degF] Bharat Martinez MD Work Phone: [facility] 01-01-2023 10:53-0400 Diastolic blood pressure 102 mm[Hg] Bharat Martinez MD Work Phone: [facility] 01-01-2023 10:53-0400 Systolic blood pressure 152 mm[Hg] Bharat Martinez MD Work Phone: [facility] 01-01-2023 10:44-0400 Body height 175.3 cm Bharat Martinez MD Work Phone: [facility] 01-01-2023 10:44-0400 Body weight 92.53 kg Bharat Martinez MD Work Phone: [facility] 01-01-2023 10:44-0400 Heart rate 85 /min Bharat Martinez MD Work Phone: [facility] 01-01-2023 10:44-0400 Respiratory rate 16 /min Bharat Martinez MD Work Phone: [facility] 12-28-2022 15:17-0400 Body temperature 98.71 [degF] Catracho Wan [employer] Work Phone: [facility] 12-28-2022 15:17-0400 Body weight 91.63 kg Catracho Wan [employer] Work Phone: [facility] 12-28-2022 15:17-0400 Diastolic blood pressure 88 mm[Hg] Catracho Wan [employer] Work Phone: [facility] 12-28-2022 15:17-0400 Heart rate 82 /min Catracho Wan [employer] Work Phone: [facility] 12-28-2022 15:17-0400 Respiratory rate 18 /min Catracho Wan [employer] Work Phone: [facility] 12-28-2022 15:17-0400 SaO2% (BldA) [Mass fraction] 99 % Catracho Wan [employer] Work Phone: [facility] 12-28-2022 15:17-0400 Systolic blood pressure 131 mm[Hg] Catracho Wan [employer] Work Phone: [facility] 10-22-2022 15:17-0400 Body temperature 97.59 [degF] Ankur Pendlehoward [employer] Work Phone: [facility] 10-22-2022 15:17-0400 Body weight 93.08 kg Ankur Starkslehoward [employer] Work Phone: [facility] 10-22-2022 15:17-0400 Diastolic blood pressure 70 mm[Hg] Ankur Pendlebury [employer] Work Phone: [facility] 10-22-2022 15:17-0400 Heart rate 93 /min Ankur Pendlebury [employer] Work Phone: [facility] 10-22-2022 15:17-0400 Respiratory rate 16 /min Ankur Pendlebury [employer] Work Phone: [facility] 10-22-2022 15:17-0400 SaO2% (BldA) [Mass fraction] 98 % Ankur Pendlebury [employer] Work Phone: [facility] 10-22-2022 15:17-0400 Systolic blood pressure 132 mm[Hg] Ankur Pendlebury [employer] Work Phone: [facility] 10-11-2022 15:41-0400 Body weight 92.53 kg Brad Herman MD Work Phone: [facility] 10-11-2022 15:41-0400 Diastolic blood pressure 72 mm[Hg] Brad Herman MD Work Phone: [facility] 10-11-2022 15:41-0400 Heart rate 87 /min Brad Herman MD Work Phone: [facility] 10-11-2022 15:41-0400 SaO2% (BldA) [Mass fraction] 97 % Brad Herman MD Work Phone: [facility] 10-11-2022 15:41-0400 Systolic blood pressure 122 mm[Hg] Brad Herman MD Work Phone: [facility] 07-12-2022 08:59-0400 Body weight 99.16 kg Ilana Glory [employer] Work Phone: [facility] 07-12-2022 08:59-0400 Diastolic blood pressure 88 mm[Hg] Ilana Glory [employer] Work Phone: [facility] 07-12-2022 08:59-0400 Heart rate 80 /min Ilana Glory [employer] Work Phone: [facility] 07-12-2022 08:59-0400 Respiratory rate 16 /min Ilana Glory [employer] Work Phone: [facility] 07-12-2022 08:59-0400 SaO2% (BldA) [Mass fraction] 99 % Ilana Glory [employer] Work Phone: [facility] 07-12-2022 08:59-0400 Systolic blood pressure 132 mm[Hg] Ilana Glory [employer] Work Phone: [facility] 07-11-2022 12:20-0400 Body temperature 97.39 [degF] Yaquelin Chris-Bryan [employer] Work Phone: [facility] 07-11-2022 12:20-0400 Body weight 99.34 kg Yaquelin Chris-Wood [employer] Work Phone: [facility] 07-11-2022 12:20-0400 Diastolic blood pressure 80 mm[Hg] Yaquelin Praisler-Wood [employer] Work Phone: [facility] 07-11-2022 12:20-0400 Heart rate 80 /min Yaquelin Praisler-Wood [employer] Work Phone: [facility] 07-11-2022 12:20-0400 Respiratory rate 18 /min Yaquelin Praisler-Wood [employer] Work Phone: [facility] 07-11-2022 12:20-0400 SaO2% (BldA) [Mass fraction] 100 % Yaquelin Praisler-Wood [employer] Work Phone: [facility] 07-11-2022 12:20-0400 Systolic blood pressure 124 mm[Hg] Yaquelin Praisler-Wood [employer] Work Phone: [facility] 06-20-2022 14:31-0400 Body weight 100.15 kg Polly Grant [employer] Work Phone: [facility] 06-20-2022 14:31-0400 Diastolic blood pressure 80 mm[Hg] Polly Grant [employer] Work Phone: [facility] 06-20-2022 14:31-0400 Heart rate 68 /min Polly Grant [employer] Work Phone: [facility] 06-20-2022 14:31-0400 Respiratory rate 14 /min Polly Grant [employer] Work Phone: [facility] 06-20-2022 14:31-0400 Systolic blood pressure 130 mm[Hg] Polly Grant [employer] Work Phone: [facility] 06-12-2022 17:58-0400 Body temperature 97.11 [degF] Yaquelin Praisler-Wood [employer] Work Phone: [facility] 06-12-2022 17:58-0400 Body weight 100.52 kg Yaquelin Praisler-Wood [employer] Work Phone: [facility] 06-12-2022 17:58-0400 Diastolic blood pressure 84 mm[Hg] Yaquelin Praisler-Wood [employer] Work Phone: [facility] 06-12-2022 17:58-0400 Heart rate 103 /min Yaquelin Praisler-Wood [employer] Work Phone: [facility] 06-12-2022 17:58-0400 Respiratory rate 21 /min Yaquelin Praisler-Wood [employer] Work Phone: [facility] 06-12-2022 17:58-0400 SaO2% (BldA) [Mass fraction] 98 % Yaquelin Praisler-Wood [employer] Work Phone: [facility] 06-12-2022 17:58-0400 Systolic blood pressure 118 mm[Hg] Yaquelin Praisler-Wood [employer] Work Phone: [facility] 06-07-2022 08:13-0400 Body weight 103.6 kg Polly Grant [employer] Work Phone: [facility] 06-07-2022 08:13-0400 Diastolic blood pressure 88 mm[Hg] Polly Grant [employer] Work Phone: [facility] 06-07-2022 08:13-0400 Heart rate 72 /min Polly Grant [employer] Work Phone: [facility] 06-07-2022 08:13-0400 Respiratory rate 16 /min Polly Grant [employer] Work Phone: [facility] 06-07-2022 08:13-0400 Systolic blood pressure 140 mm[Hg] Polly Grant [employer] Work Phone: [facility] 05-16-2022 09:25-0500 Body weight 104.69 kg Polly Grant [employer] Work Phone: [facility] 05-16-2022 09:25-0500 Diastolic blood pressure 90 mm[Hg] Polly Grant [employer] Work Phone: [facility] 05-16-2022 09:25-0500 Heart rate 87 /min Polly Grant [employer] Work Phone: [facility] 05-16-2022 09:25-0500 Respiratory rate 14 /min Polly Grant [employer] Work Phone: [facility] 05-16-2022 09:25-0500 SaO2% (BldA) [Mass fraction] 99 % Polly Grant [employer] Work Phone: [facility] 05-16-2022 09:25-0500 Systolic blood pressure 142 mm[Hg] Polly Grant [employer] Work Phone: [facility] 05-16-2022 06:44-0500 Body height 175.3 cm MARJORIE PRATER MD [facility] 05-16-2022 06:44-0500 Body temperature 98.24 [degF] MARJORIE PRATER MD [facility] 05-16-2022 06:44-0500 Body weight 100 kg MARJORIE PRATER MD [facility] 05-16-2022 06:44-0500 Diastolic Blood Pressure Non-Invasive 90 1 MARJORIE PRATER MD [facility] 05-16-2022 06:44-0500 Heart rate 77 /min MARJORIE PRATER MD [facility] 05-16-2022 06:44-0500 Respiratory rate 18 /min MARJORIE PRATER MD [facility] 05-16-2022 06:44-0500 Systolic Blood Pressure Non-Invasive 142 1 MARJORIE PRATER MD [facility] 05-14-2022 11:37-0500 Diastolic blood pressure 83 mm[Hg] [facility] 05-14-2022 11:37-0500 Systolic blood pressure 148 mm[Hg] [facility] 05-14-2022 09:14-0500 Body height 175.26 cm [facility] 05-14-2022 09:14-0500 Body mass index (BMI) [Ratio] 34.3 kg/m2 [facility] 05-14-2022 09:14-0500 Body temperature 95.8 [degF] [facility] 05-14-2022 09:14-0500 Body weight 105.5 kg [facility] 05-14-2022 09:14-0500 Heart rate 75 /min [facility] 05-14-2022 09:14-0500 Respiratory rate 18 /min [facility] 05-14-2022 09:14-0500 SaO2% (BldA) [Mass fraction] 98 % [facility] 05-12-2022 12:13-0500 Body temperature 98.71 [degF] Maria R Athy PA-C Work Phone: [facility] 05-12-2022 12:13-0500 Body weight 105.6 kg Maria R Athy PA-C Work Phone: [facility] 05-12-2022 12:13-0500 Diastolic blood pressure 78 mm[Hg] Maria R Athy PA-C Work Phone: [facility] 05-12-2022 12:13-0500 Heart rate 91 /min Maria R Athy PA-C Work Phone: [facility] 05-12-2022 12:13-0500 Respiratory rate 18 /min Maria R Athy PA-C Work Phone: [facility] 05-12-2022 12:13-0500 SaO2% (BldA) [Mass fraction] 98 % Maria R Athy PA-C Work Phone: [facility] 05-12-2022 12:13-0500 Systolic blood pressure 140 mm[Hg] Maria R Marley PA-C Work Phone: [facility] 04-25-2022 09:34-0500 Body temperature 98.4 [degF] Jaron Ayala MD Work Phone: [facility] 04-25-2022 09:34-0500 Body weight 105.78 kg Jaron Ayala MD Work Phone: [facility] 04-25-2022 09:34-0500 Diastolic blood pressure 86 mm[Hg] Jaron Ayala MD Work Phone: [facility] 04-25-2022 09:34-0500 Heart rate 108 /min Jaron Ayala MD Work Phone: [facility] 04-25-2022 09:34-0500 Respiratory rate 18 /min Jaron Ayala MD Work Phone: [facility] 04-25-2022 09:34-0500 SaO2% (BldA) [Mass fraction] 98 % Jaron Ayala MD Work Phone: [facility] 04-25-2022 09:34-0500 Systolic blood pressure 134 mm[Hg] Jaron Ayala MD Work Phone: [facility] 04-08-2022 09:02-0500 Body temperature 97.59 [degF] Yaquelin Praisler-Wood [employer] Work Phone: [facility] 04-08-2022 09:02-0500 Body weight 106.59 kg Yaquelin Praisler-Wood [employer] Work Phone: [facility] 04-08-2022 09:02-0500 Diastolic blood pressure 82 mm[Hg] Yaquelin Praisler-Wood [employer] Work Phone: [facility] 04-08-2022 09:02-0500 Heart rate 97 /min Yaquelin Praisler-Wood [employer] Work Phone: [facility] 04-08-2022 09:02-0500 Respiratory rate 16 /min Yaquelin Ta [employer] Work Phone: [facility] 04-08-2022 09:02-0500 SaO2% (BldA) [Mass fraction] 97 % Yaquelin Ta [employer] Work Phone: [facility] 04-08-2022 09:02-0500 Systolic blood pressure 124 mm[Hg] Yaquelin Ta [employer] Work Phone: [facility] 04-02-2022 09:47-0500 Body weight 105.14 kg Domenica Wan MD Work Phone: [facility] 04-02-2022 09:47-0500 Diastolic blood pressure 90 mm[Hg] Domenica Wan MD Work Phone: [facility] 04-02-2022 09:47-0500 Systolic blood pressure 132 mm[Hg] Domenica Wan MD Work Phone: [facility] 04-02-2022 08:04-0500 Body temperature 98.2 [degF] Bree Montalvo [employer] Work Phone: [facility] 04-02-2022 08:04-0500 Body weight 104.78 kg Bree Montalvo [employer] Work Phone: [facility] 04-02-2022 08:04-0500 Diastolic blood pressure 80 mm[Hg] Bree Montalvo [employer] Work Phone: [facility] 04-02-2022 08:04-0500 Heart rate 76 /min Bree Montalvo [employer] Work Phone: [facility] 04-02-2022 08:04-0500 Respiratory rate 14 /min Bree Montalvo [employer] Work Phone: [facility] 04-02-2022 08:04-0500 Systolic blood pressure 126 mm[Hg] Bree Montalvo [employer] Work Phone: [facility] 03-14-2022 12:22-0500 Body weight 105.6 kg Ilana Glory [employer] Work Phone: [facility] 03-14-2022 12:22-0500 Diastolic blood pressure 88 mm[Hg] Ilana Glory [employer] Work Phone: [facility] 03-14-2022 12:22-0500 Heart rate 78 /min Ilana Glory [employer] Work Phone: [facility] 03-14-2022 12:22-0500 Respiratory rate 16 /min Ilana Glory [employer] Work Phone: [facility] 03-14-2022 12:22-0500 SaO2% (BldA) [Mass fraction] 96 % Ilana Glory [employer] Work Phone: [facility] 03-14-2022 12:22-0500 Systolic blood pressure 124 mm[Hg] Ilana Glory [employer] Work Phone: [facility] 03-06-2022 09:09-0500 Body weight 107.05 kg Ilana Glory [employer] Work Phone: [facility] 03-06-2022 09:09-0500 Diastolic blood pressure 86 mm[Hg] Ilana Glory [employer] Work Phone: [facility] 03-06-2022 09:09-0500 Heart rate 72 /min Ilana Glory [employer] Work Phone: [facility] 03-06-2022 09:09-0500 Respiratory rate 16 /min Ilana Glory [employer] Work Phone: [facility] 03-06-2022 09:09-0500 SaO2% (BldA) [Mass fraction] 98 % Ilana Glory [employer] Work Phone: [facility] 03-06-2022 09:09-0500 Systolic blood pressure 132 mm[Hg] Ilana Glory [employer] Work Phone: [facility] 03-03-2022 17:00-0500 Diastolic Blood Pressure Non-Invasive [address] DONALDO PDAILLA MD [facility] 03-03-2022 17:00-0500 Heart rate 92 /min DR DONALDO PADILLA MD [facility] 03-03-2022 17:00-0500 Systolic Blood Pressure Non-Invasive [address] DONALDO PADILLA MD [facility] 03-03-2022 15:05-[address] DONALDO PADILLA MD [facility] 03-03-2022 15:05-[address] DONALDO PADILLA MD [facility] 03-03-2022 15:05-0500 Body temperature 98.24 [degF] DR DONALDO PADILLA MD [facility] 03-03-2022 15:05-0500 Diastolic Blood Pressure Non-Invasive [address] DONALDO PADILLA MD [facility] 03-03-2022 15:05-0500 Heart rate 90 /min DR DONALDO PADILLA MD [facility] 03-03-2022 15:05-0500 Respiratory rate 18 /min DR DONALDO PADILLA MD [facility] 03-03-2022 15:05-0500 Systolic Blood Pressure Non-Invasive [address] DONALDO PADILLA MD [facility] 02-13-2022 13:43-0500 Body height 176 cm Polly Leon [employer] Work Phone: [facility] 02-13-2022 13:43-0500 Body weight 105.33 kg Polly Zurjeannieck [employer] Work Phone: [facility] 02-13-2022 13:43-0500 Diastolic blood pressure 80 mm[Hg] Polly Zurjeannieck [employer] Work Phone: [facility] 02-13-2022 13:43-0500 Heart rate 64 /min Polly Suzeck [employer] Work Phone: [facility] 02-13-2022 13:43-0500 Respiratory rate 16 /min Polly Suzeck [employer] Work Phone: [facility] 02-13-2022 13:43-0500 Systolic blood pressure 120 mm[Hg] Polly Zurjeannieck [employer] Work Phone: [facility] 01-20-2022 13:21-0500 Body temperature 98.29 [degF] Catracho Wan APRN.[employer] Work Phone: [facility] 01-20-2022 13:21-0500 Body weight 102.97 kg Catracho Wan [employer]N.[employer] Work Phone: [facility] 01-20-2022 13:21-0500 Diastolic blood pressure 90 mm[Hg] Catracho Wan [employer] Work Phone: [facility] 01-20-2022 13:21-0500 Heart rate 90 /min Catracho Wan [employer] Work Phone: [facility] 01-20-2022 13:21-0500 Respiratory rate 16 /min Catracho Wan [employer] Work Phone: [facility] 01-20-2022 13:21-0500 SaO2% (BldA) [Mass fraction] 98 % Catracho Wan [employer] Work Phone: [facility] 01-20-2022 13:21-0500 Systolic blood pressure 138 mm[Hg] Catracho Wan [employer] Work Phone: [facility] 12-28-2021 09:00-0400 Diastolic blood pressure 80 mm[Hg] SERGEY SUPPAN DPM [facility] 12-28-2021 09:00-0400 Heart rate 71 /min SERGEY SUPPAN DPM [facility] 12-28-2021 09:00-0400 Respiratory rate 18 /min SERGEY SUPPAN DPM [facility] 12-28-2021 09:00-0400 Systolic blood pressure 117 mm[Hg] SERGEY SUPPAN DPM [facility] 12-28-2021 08:54-0400 Diastolic blood pressure 88 mm[Hg] SERGEY SUPPAN DPM [facility] 12-28-2021 08:54-0400 Heart rate 85 /min SERGEY SUPPAN DPM [facility] 12-28-2021 08:54-0400 Respiratory rate 17 /min SERGEY SUPPAN DPM [facility] 12-28-2021 08:54-0400 Systolic blood pressure 132 mm[Hg] SERGEY SUPPAN DPM [facility] 12-28-2021 08:47-0400 Diastolic Blood Pressure NBP 77 1 SERGEY SUPPAN DPM [facility] 12-28-2021 08:47-0400 Heart rate 85 /min SERGEY SUPPAN DPM [facility] 12-28-2021 08:47-0400 Respiratory rate 17 /min SERGEY SUPPAN DPM [facility] 12-28-2021 08:47-0400 Systolic Blood Pressure NBP 119 1 SERGEY SUPPAN DPM [facility] 12-28-2021 08:42-0400 Body temperature 96.44 [degF] SERGEY SUPPAN DPM [facility] 12-28-2021 08:42-0400 Diastolic Blood Pressure NBP 100 1 SERGEY SUPPAN DPM [facility] 12-28-2021 08:42-0400 Heart rate 81 /min SERGEY SUPPAN DPM [facility] 12-28-2021 08:42-0400 Reason For Taking VItal Signs SERGEY SUPPAN DPM [facility] 12-28-2021 08:42-0400 Systolic Blood Pressure NBP 122 1 SERGEY SUPPAN DPM [facility] 12-28-2021 08:30-0400 Diastolic Blood Pressure NBP 56 1 SERGEY SUPPAN DPM [facility] 12-28-2021 08:30-0400 Systolic Blood Pressure NBP 99 1 SERGEY SUPPAN DPM [facility] 12-28-2021 07:11-0400 Body height 175.3 cm SERGEY SUPPAN DPM [facility] 12-28-2021 07:11-0400 Body temperature 97.34 [degF] SERGEY SUPPAN DPM [facility] 12-28-2021 07:11-0400 Body weight 100 kg SERGEY SUPPAN DPM [facility] 12-28-2021 07:11-0400 Heart rate 81 /min SERGEY SUPPAN DPM [facility] 12-18-2021 09:01-0400 Body height 175.3 cm SERGEY SUPPAN DPM [facility] 12-18-2021 09:01-0400 Body weight 100 kg SERGEY SUPPAN DPM [facility] 12-18-2021 09:01-0400 Body weight 32.54 kg/m2 SERGEY SUPPAN DPM [facility] 12-18-2021 09:01-0400 diastolic 80 mm[Hg] SERGEY SUPPAN DPM [facility] 12-18-2021 09:01-0400 Heart rate 92 /min SERGEY SUPPAN DPM [facility] 12-18-2021 09:01-0400 systolic 122 mm[Hg] SERGEY SUPPAN DPM [facility] 11-30-2021 08:49-0400 Body weight 101.52 kg Polly Leon [employer] Work Phone: [facility] 11-30-2021 08:49-0400 Diastolic blood pressure 78 mm[Hg] Polly Leon [employer] Work Phone: [facility] 11-30-2021 08:49-0400 Heart rate 78 /min Polly Leon [employer] Work Phone: [facility] 11-30-2021 08:49-0400 Respiratory rate 14 /min Polly Zurmindy [employer] Work Phone: [facility] 11-30-2021 08:49-0400 SaO2% (BldA) [Mass fraction] 100 % Polly Quintero [employer] Work Phone: [facility] 11-30-2021 08:49-0400 Systolic blood pressure 130 mm[Hg] Polly Zurjeannieck [employer] Work Phone: [facility] 11-22-2021 09:33-0400 Body height 175.3 cm Marizol Centeno DO Work Phone: [facility] 11-22-2021 09:33-0400 Body weight 99.75 kg Marizol Centeno DO Work Phone: [facility] 11-16-2021 08:25-0400 Body weight 100.06 kg Ilana Glory [employer] Work Phone: [facility] 11-16-2021 08:25-0400 Diastolic blood pressure 86 mm[Hg] Ilana Glory [employer] Work Phone: [facility] 11-16-2021 08:25-0400 Heart rate 89 /min Ilana Glory [employer] Work Phone: [facility] 11-16-2021 08:25-0400 Respiratory rate 16 /min Ilana Glory [employer] Work Phone: [facility] 11-16-2021 08:25-0400 SaO2% (BldA) [Mass fraction] 99 % Ilana Glory [employer] Work Phone: [facility] 11-16-2021 08:25-0400 Systolic blood pressure 122 mm[Hg] Ilana Glory [employer] Work Phone: [facility] 10-05-2021 08:31-0400 Body weight 99.97 kg Polly Zurawick [employer] Work Phone: [facility] 10-05-2021 08:31-0400 Diastolic blood pressure 78 mm[Hg] Polly Zurawick [employer] Work Phone: [facility] 10-05-2021 08:31-0400 Heart rate 72 /min Polly Zurawick [employer] Work Phone: [facility] 10-05-2021 08:31-0400 Respiratory rate 14 /min Polly Zurawick [employer] Work Phone: [facility] 10-05-2021 08:31-0400 Systolic blood pressure 120 mm[Hg] Polly Zurawick [employer] Work Phone: [facility] 09-14-2021 09:02-0400 Body weight 98.7 kg Polly Suzeck [employer] Work Phone: [facility] 09-14-2021 09:02-0400 Respiratory rate 16 /min Polly Zurawick [employer] Work Phone: [facility] 09-07-2021 10:50-0400 Body weight 99.79 kg Pita Plotts [employer] Work Phone: [facility] 09-07-2021 10:50-0400 Diastolic blood pressure 84 mm[Hg] Pita Plotts [employer] Work Phone: [facility] 09-07-2021 10:50-0400 Systolic blood pressure 124 mm[Hg] Pita Plotts [employer] Work Phone: [facility] 09-07-2021 08:54-0400 Body weight 97.98 kg Ilana Glory [employer] Work Phone: [facility] 09-07-2021 08:54-0400 Diastolic blood pressure 86 mm[Hg] Ilana Glory [employer] Work Phone: [facility] 09-07-2021 08:54-0400 Heart rate 82 /min Ilana Glory [employer] Work Phone: [facility] 09-07-2021 08:54-0400 Respiratory rate 16 /min Ilana Glory [employer] Work Phone: [facility] 09-07-2021 08:54-0400 SaO2% (BldA) [Mass fraction] 99 % Ilana Glory [employer] Work Phone: [facility] 09-07-2021 08:54-0400 Systolic blood pressure 124 mm[Hg] Ilana Glory [employer] Work Phone: [facility] 08-29-2021 17:55-0400 Body weight 99.88 kg Polly Zurawick [employer] Work Phone: [facility] 08-29-2021 17:55-0400 Diastolic blood pressure 70 mm[Hg] Polly Zurawick [employer] Work Phone: [facility] 08-29-2021 17:55-0400 Heart rate 60 /min Polly Zurawick [employer] Work Phone: [facility] 08-29-2021 17:55-0400 Respiratory rate 14 /min Polly Zurawick [employer] Work Phone: [facility] 08-29-2021 17:55-0400 Systolic blood pressure 120 mm[Hg] Polly Zurawick [employer] Work Phone: [facility] 08-10-2021 09:09-0400 Body weight 102.51 kg Ilana Glory [employer] Work Phone: [facility] 08-10-2021 09:09-0400 Diastolic blood pressure 92 mm[Hg] Ilana Glory [employer] Work Phone: [facility] 08-10-2021 09:09-0400 Heart rate 72 /min Ilana Glory [employer] Work Phone: [facility] 08-10-2021 09:09-0400 Respiratory rate 16 /min Ilana Glory [employer] Work Phone: [facility] 08-10-2021 09:09-0400 SaO2% (BldA) [Mass fraction] 96 % Ilana Glory [employer] Work Phone: [facility] 08-10-2021 09:09-0400 Systolic blood pressure 134 mm[Hg] Ilana Glory [employer] Work Phone: [facility] 08-01-2021 09:32-0400 Body temperature 96.49 [degF] Jaron Ayala MD Work Phone: [facility] 08-01-2021 09:32-0400 Body weight 102.24 kg Jaron Ayala MD Work Phone: [facility] 08-01-2021 09:32-0400 Diastolic blood pressure 78 mm[Hg] Jaron Ayala MD Work Phone: [facility] 08-01-2021 09:32-0400 Heart rate 70 /min Jaron Ayala MD Work Phone: [facility] 08-01-2021 09:32-0400 Respiratory rate 21 /min Jaron Ayala MD Work Phone: [facility] 08-01-2021 09:32-0400 SaO2% (BldA) [Mass fraction] 100 % Jaron Ayala MD Work Phone: [facility] 08-01-2021 09:32-0400 Systolic blood pressure 122 mm[Hg] Jaron Ayala MD Work Phone: [facility] 07-03-2021 21:33-0400 Diastolic blood pressure 92 mm[Hg] [facility] Work Phone: 07-03-2021 21:33-0400 Heart rate 70 /min [facility] Work Phone: 07-03-2021 21:33-0400 Respiratory rate 24 /min [facility] Work Phone: 07-03-2021 21:33-0400 SaO2% (BldA) [Mass fraction] 99 % [facility] Work Phone: 07-03-2021 21:33-0400 Systolic blood pressure 149 mm[Hg] [facility] Work Phone: 07-03-2021 18:14-0400 Body height 175.26 cm [facility] Work Phone: 07-03-2021 18:14-0400 Body mass index (BMI) [Ratio] 33.8 kg/m2 [facility] Work Phone: 07-03-2021 18:14-0400 Body temperature 97.5 [degF] [facility] Work Phone: 07-03-2021 18:14-0400 Body weight 104 kg [facility] Work Phone: 07-02-2021 09:04-0400 Body temperature 97.59 [degF] Rosina Older [employer] Work Phone: [facility] 07-02-2021 09:04-0400 Body weight 103.42 kg Rosina Older [employer] Work Phone: [facility] 07-02-2021 09:04-0400 Diastolic blood pressure 86 mm[Hg] Rosina Older [employer] Work Phone: [facility] 07-02-2021 09:04-0400 Heart rate 73 /min Rosina Older [employer] Work Phone: [facility] 07-02-2021 09:04-0400 Respiratory rate 16 /min Rosina Older [employer] Work Phone: [facility] 07-02-2021 09:04-0400 SaO2% (BldA) [Mass fraction] 100 % Rosina Older [employer] Work Phone: [facility] 07-02-2021 09:04-0400 Systolic blood pressure 128 mm[Hg] Rosina Older [employer] Work Phone: [facility] 06-25-2021 09:56-0400 Body temperature 97.59 [degF] Theresa FLORES-Charito Work Phone: [facility] 06-25-2021 09:56-0400 Body weight 102.15 kg Theresa FLORES-C Work Phone: [facility] 06-25-2021 09:56-0400 Diastolic blood pressure 84 mm[Hg] Theresa Bogner PA-C Work Phone: [facility] 06-25-2021 09:56-0400 Heart rate 98 /min Theresa Bogner PA-C Work Phone: [facility] 06-25-2021 09:56-0400 Respiratory rate 20 /min Theresa Bogner PA-C Work Phone: [facility] 06-25-2021 09:56-0400 SaO2% (BldA) [Mass fraction] 99 % Theresa Bogner PA-C Work Phone: [facility] 06-25-2021 09:56-0400 Systolic blood pressure 130 mm[Hg] Theresa Bogner PA-C Work Phone: [facility] 06-07-2021 13:57-0400 Body height 175.26 cm [facility] Work Phone: 06-07-2021 13:57-0400 Body mass index (BMI) [Ratio] 33.2 kg/m2 [facility] Work Phone: 06-07-2021 13:57-0400 Body temperature 96.9 [degF] [facility] Work Phone: 06-07-2021 13:57-0400 Body weight 102.05 kg [facility] Work Phone: 06-07-2021 13:57-0400 Diastolic blood pressure 100 mm[Hg] [facility] Work Phone: 06-07-2021 13:57-0400 Heart rate 81 /min [facility] Work Phone: 06-07-2021 13:57-0400 Respiratory rate 16 /min [facility] Work Phone: 06-07-2021 13:57-0400 SaO2% (BldA) [Mass fraction] 100 % [facility] Work Phone: 06-07-2021 13:57-0400 Systolic blood pressure 166 mm[Hg] [facility] Work Phone: 06-07-2021 11:06-0400 Body temperature 98.42 [degF] GAVI DOTSON MD [facility] 06-07-2021 11:06-0400 Diastolic blood pressure 100 mm[Hg] GAVI DOTSON MD [facility] 06-07-2021 11:06-0400 Heart rate 85 /min GAVI DOTSON MD [facility] 06-07-2021 11:06-0400 Mean blood pressure 117 mm[Hg] GAVI DOTSON MD [facility] 06-07-2021 11:06-0400 Respiratory rate 18 /min GAVI DOTSON MD [facility] 06-07-2021 11:06-0400 Systolic blood pressure 152 mm[Hg] GAVI DOTSON MD [facility] 06-05-2021 14:44-0400 Body weight 103.87 kg Jessica Aponte APRN.CNRuth Ann Work Phone: [facility] 06-05-2021 14:44-0400 Diastolic blood pressure 90 mm[Hg] Jessica Aponte APRN.CNM Work Phone: [facility] 06-05-2021 14:44-0400 Systolic blood pressure 130 mm[Hg] Jessica Aponte APRN.CNM Work Phone: [facility] 06-04-2021 16:58-0400 Body temperature 98.29 [degF] Maria R Athy PA-C Work Phone: [facility] 06-04-2021 16:58-0400 Body weight 103.51 kg Maria R Athy PA-C Work Phone: [facility] 06-04-2021 16:58-0400 Diastolic blood pressure 92 mm[Hg] Maria R Athy PA-C Work Phone: [facility] 06-04-2021 16:58-0400 Heart rate 87 /min Maria R Athy PA-C Work Phone: [facility] 06-04-2021 16:58-0400 Respiratory rate 20 /min Maria R Athy PA-C Work Phone: [facility] 06-04-2021 16:58-0400 SaO2% (BldA) [Mass fraction] 99 % Maria R Athy PA-C Work Phone: [facility] 06-04-2021 16:58-0400 Systolic blood pressure 132 mm[Hg] Maria R Athy PA-C Work Phone: [facility] Encounters Encounter Date Encounter Type Care Provider Facility Start: 01-22-2025 End: 01-22-2025 ambulatory GIGI L CARRILLO Facility:[facility] Start: 01-07-2025 End: 01-07-2025 ambulatory GIGI L CARRILLO Facility:[facility] Start: 01-03-2025 End: 01-03-2025 ambulatory GIGI L CARRILLO Facility:[facility] Start: 12-30-2024 End: 12-30-2024 ambulatory GIGI L CARRILLO Facility:[facility] Start: 12-15-2024 End: 12-15-2024 ambulatory GIGI L CARRILLO Facility:[facility] Start: 12-07-2024 End: 12-07-2024 ambulatory GIGI L CARRILLO Facility:[facility] Start: 12-03-2024 ambulatory MOOK sarabiay:[facility] Start: 12-03-2024 End: 12-03-2024 ambulatory GIGI L CARRILLO Facility:[facility] Start: 11-24-2024 End: 11-24-2024 Refill Mook Mcguire APRN.CNP Work Phone: [facility] [place] Comment on above: Refill Request Start: 11-12-2024 ambulatory Gigi Carrillo Facilit y:[facility] Start: 11-09-2024 End: 11-09-2024 Patient encounter procedure Catracho Wan APRN.GUM COOK Work Phone: [facility] [place] Comment on above: Burning with urinati on (Primary Dx); Vaginal itching; Acute left flank pain Start: 11-09-2024 End: 11-10-2024 ambulatory CATRACHO WAN Facility:[facility] Start: 10-22-2024 End: 10-22-2024 ambulatory GIGI L CARRILLO Facility:[facility] Start: 08-30-2024 End: 09-01-2024 Follow-up encounter Mook Mcguire APRN.CNP Work Phone: [facility] [place] Start: 08-27-2024 End: 08-27-2024 ambulatory GIGI L CARRILLO Facility:[facility] Start: 08-27-2024 End: 08-27-2024 Office outpatient visit 40 minutes Mook Mcguire APRN.GUM COOK Work Phone: [facility] [place] Comment on above: Type 2 diabetes hector itus with other specified complication, with long-term current use of insulin (HCC) (Primary Dx); Gastroesophageal reflux disease without esophagitis; Weight loss; Skin irritation; Encounter for screening examination for other mental health and behavioral disorders; Screening for depression; Screening for diabetic retinopathy; Overweight with body mass index (BMI) of 25 to 25.9 in adult; ADHD (attention deficit hyperactivity disorder), combined type Start: 08-27-2024 End: 08-27-2024 ambulatory GIGI L CARRILLO Facility:[facility] Start: 08-13-2024 End: 08-13-2024 Telephone encounter [facility] Comment on above: Pharmacy Call/Update Start: 08-13-2024 End: 08-13-2024 Office outpatient visit 15 minutes Sulema Brown PA-C Work Phone: [facility] [place] Comment on above: TMJ click (Primary D x); Temporal mandibular joint disorder; Oral mucositis (ulcerative), unspecified; Mouth sore Start: 08-13-2024 End: 08-13-2024 ambulatory GIGI Fausto CARRILLO Facility:[facility] Start: 07-21-2024 End: 07-21-2024 Follow-up encounter Theresa Wheeler PA-C Work Phone: [facility] [place] Start: 07-20-2024 End: 07-23-2024 Follow-up encounter Theresa Wheeler PA-C Work Phone: [facility] [place] Comment on above: Results Start: 07-20-2024 ambulatory THERESAARCHANA WHEELER [facility] it:[facility] Start: 07-20-2024 End: 07-20-2024 Subsequent hospital visit by physician [facility] Comment on above: Sore throat [J02.9] Start: 07-20-2024 End: 07-20-2024 Office outpatient visit 25 minutes Theresa Wheeler PA-C Work Phone: [facility] [place] Comment on above: Sore throat (Primary Dx); Fatigue, unspecified type; LUQ pain; Type 2 diabetes mellitus without complication, without long-term current use of insulin (HCC) Start: 07-20-2024 End: 07-20-2024 ambulatory GIGI CARRILLO Facility:[facility] Start: 07-19-2024 End: 07-19-2024 Emergency department patient visit GAVI DOTSON MD [facility] Start: 07-14-2024 End: 07-14-2024 Refill Bree Montalvo APRN.CNP Work Phone: [facility] [place] Comment on above: Vaginal Problem Start: 07-06-2024 End: 07-06-2024 Patient encounter procedure Bree Montalvo APRN.CNP Work Phone: [facility] [place] Comment on above: Urinary tract infect ion symptoms (Primary Dx); Flank pain Start: 07-06-2024 End: 07-06-2024 ambulatory Kanika Ely RN NURSE TRANSIT [employer]PERATIONS SUPERVISOR Comment on above: UTI Start: 06-28-2024 End: 06-28-2024 Refill Ilana Herrera APRN.GUM COOK Work Phone: [facility] Comment on above: Refill Request Start: 06-27-2024 End: 06-28-2024 ambulatory [facility] Provider [facility] Comment on above: Mounjaro Start: 06-21-2024 End: 06-21-2024 Refill Gigi L Carrillo DO Work Phone: [facility] Comment on above: Refill Request Start: 05-28-2024 End: 05-28-2024 Refill Gigi L Carrillo DO Work Phone: [facility] Comment on above: Refill Request Start: 05-25-2024 End: 05-25-2024 ambulatory GIGI L CARRILLO Facility:[facility] Start: 05-25-2024 End: 05-25-2024 Patient encounter procedure Catracho Wan MUCK BOSS.GUM COOK Work Phone: [facility] Comment on above: Rhinosinusitis (Prim sharita Dx) Start: 05-18-2024 End: 06-18-2024 ambulatory Gigi L Carrillo DO Work Phone: [facility] Start: 05-16-2024 End: 05-17-2024 Refill Polly Grant MUCK BOSS.GUM COOK Work Phone: [facility] Comment on above: Refill Request Start: 05-09-2024 End: 05-09-2024 Emergency department patient visit Gigi Carrillo Facility:[facility] Start: 05-06-2024 End: 05-06-2024 ambulatory GIGI L CARRILLO Facility:[facility] Start: 05-06-2024 End: 05-06-2024 Office outpatient visit 15 minutes Yaquelin Ta APRN.GUM COOK Work Phone: [facility] Comment on above: Acute otitis externa of left ear, unspecified type (Primary Dx); Acute right-sided low back pain with right-sided sciatica; Dysuria Start: 04-01-2024 End: 04-01-2024 ambulatory TORI BLAIR Facility:[facility] Start: 03-28-2024 End: 03-28-2024 ambulatory GIGI L CARRILLO Facility:[facility] Start: 03-28-2024 End: 03-28-2024 Office outpatient visit 15 minutes Ankur Matias APRN.GUM COOK Work Phone: [facility] Comment on above: Urinary frequency (P rimary Dx); Rash Start: 03-27-2024 End: 03-29-2024 ambulatory Gigi L Carrillo DO Work Phone: [facility] [place] Comment on above: Meds locked? Start: 03-01-2024 End: 03-01-2024 ambulatory GIGI L CARRILLO Facility:[facility] Start: 03-01-2024 End: 03-01-2024 Patient encounter procedure Tori Maddox APRN.GUM COOK Work Phone: General Surgery Comment on above: Gastroesophageal ref lux disease without esophagitis; Globus sensation; Bloating; Upset stomach; Nausea Start: 03-01-2024 End: 04-21-2024 Telephone encounter Tori Maddox APRN.GUM COOK Work Phone: General Surgery Comment on above: 04-01-2024 EGD [place] Start: 02-27-2024 End: 02-27-2024 ambulatory GIGI L CARRILLO Facility:[facility] Start: 02-27-2024 End: 02-27-2024 Office outpatient visit 25 minutes Polly Grant APRN.GUM COOK Work Phone: [facility] [place] Comment on above: Controlled type 2 di abetes mellitus without complication, without long-term current use of insulin (HCC) (Primary Dx); Gastroesophageal reflux disease without esophagitis; Functional diarrhea Start: 02-24-2024 End: 02-24-2024 ambulatory GIGI L CARRILLO Facility:[facility] Start: 02-24-2024 End: 02-24-2024 Patient encounter procedure Teo Linder MD Work Phone: [facility] Comment on above: Gastroesophageal ref lux disease without esophagitis (Primary Dx); Globus sensation; Bloating; Upset stomach; Nausea Start: 02-15-2024 End: 02-17-2024 Refill Ilana Herrera MUCK BOSS.GUM COOK Work Phone: [facility] Comment on above: Refill Request Start: 02-10-2024 End: 02-11-2024 Telephone encounter Gigi Carrillo DO Work Phone: [facility] [place] Comment on above: Insurance Authorizat ion Start: 02-08-2024 End: 02-08-2024 ambulatory GIGI CARRILLO Facility:[facility] Start: 02-08-2024 End: 02-08-2024 Patient encounter procedure Jessica Chandler APRN.CNP Work Phone: [facility] Comment on above: Burning with urinati on (Primary Dx); Encounter for screening for bacterial sexually transmitted disease Start: 02-07-2024 End: 02-09-2024 Refill Ilana Herrera MUCK BOSS.GUM COOK Work Phone: [facility] Comment on above: Refill Request Start: 02-06-2024 End: 02-06-2024 ambulatory [facility] Facility:[facility] Start: 02-02-2024 End: 02-02-2024 ambulatory GIGI CARRILLO Facility:[facility] Start: 02-02-2024 End: 02-02-2024 Patient encounter procedure Maria R Marley PA-C Work Phone: [facility] Comment on above: Thrush (Primary Dx); Screening for STD (sexually transmitted disease) Start: 01-23-2024 End: 01-23-2024 Office outpatient visit 25 minutes Kevin Witt APRN.KEEGAN Work Phone: [facility] Comment on above: Thrush (Primary Dx); Allergic reaction, subsequent encounter; Heart burn; Globus sensation Start: 01-20-2024 End: 01-22-2024 Telephone encounter Gigi Carrillo DO Work Phone: [facility] Comment on above: Results Start: 01-18-2024 End: 01-19-2024 ambulatory Polly Grant APRN.GUM COOK Work Phone: [facility] [place] Comment on above: Thrush Start: 01-13-2024 End: 01-14-2024 Telephone encounter Karley Jimenez APRN.GUM COOK Work Phone: [facility] [place] Comment on above: Results Refill Request Start: 01-12-2024 End: 01-12-2024 Office outpatient visit 25 minutes Karley Jimenez APRN.GUM COOK Work Phone: [facility] [place] Comment on above: Oral marcelo (Primar y Dx); Vaginal yeast infection; Seborrheic dermatitis; Seasonal allergic rhinitis, unspecified trigger Start: 12-29-2023 End: 01-01-2024 ambulatory Polly Grant APRN.GUM COOK Work Phone: [facility] [place] Comment on above: Thrush and yeast inf ection Start: 12-26-2023 End: 12-26-2023 Telephone encounter Jaron Ayala MD Work Phone: [facility] Comment on above: Results (Marcelo+) Start: 12-24-2023 End: 12-24-2023 Patient encounter procedure Catracho Wan APRN.GUM COOK Work Phone: [facility] Comment on above: Mouth pain (Primary Dx); Vaginal itching Start: 12-17-2023 End: 12-17-2023 Telephone encounter Gigi Carrillo DO Work Phone: [facility] [place] Comment on above: Patient Question Start: 12-16-2023 End: 12-17-2023 ambulatory Gigi Carrillo DO Work Phone: [facility] [place] Comment on above: Bloodwork Start: 12-11-2023 End: 12-12-2023 Refill Ilana Herrera APRN.GUM COOK Work Phone: [facility] [place] Comment on above: Refill Request Start: 11-21-2023 End: 09-06-2024 Subsequent hospital visit by physician Xr [facility] [place] Work Phone: Radiology Comment on above: Injury of right shou lder, initial encounter [S49.91XA] Start: 11-21-2023 End: 11-21-2023 Patient encounter procedure Ilana Herrera APRN.GUM COOK Work Phone: [facility] Comment on above: Controlled type 2 di abetes mellitus without complication, without long-term current use of insulin (HCC) (Primary Dx); Class 1 obesity due to excess calories with serious comorbidity and body mass index (BMI) of 31.0 to 31.9 in adult; Injury of right shoulder, initial encounter; Injury of right upper extremity, initial encounter; Weakness of right arm Start: 11-16-2023 End: 11-16-2023 Emergency department patient visit DONALDO Mcneill ALEKSANDRA SAUNDERS [facility] Start: 11-11-2023 End: 11-11-2023 Admission to establishment [facility] [place] [facility] Start: 11-11-2023 End: 11-11-2023 Anesthesia consultation [facility] Comment on above: Pre-op evaluation (P rimary Dx); Type 2 diabetes mellitus without complication, without long-term current use of insulin (HCC); Weight loss due to medication Start: 11-11-2023 End: 11-11-2023 Preprocedural examination done Pac [facility] Work Phone: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 A1c/Hemoglobin.total in Blood Polly Grant [employer] Work Phone: Start: 08-18-2023 Radex clavicle complete Karley A Denissean [employer] Work Phone: Start: 07-16-2023 BACTERIAL VAGINOSIS NAAT Natasha Condon MD Work Phone: Start: 07-16-2023 Iadna trichomonas va ginalis amplified probe tech Natasha Condon MD Work Phone: Start: 07-04-2023 Laparoscopic salpingectomy Start: 05-20-2023 Mri any jt lower ext rem w/o contrast matrl Venkat Scruggs DO Work Phone: Start: 04-25-2023 Adult depression scr eening assessment Gigi Carrillo DO Work Phone: Start: 03-21-2023 Radex forearm 2 views J magy Chandler [employer] Work Phone: Start: 12-30-2022 Investigation of tra nsfusion reaction Start: 12-30-2022 Nasopharyngeal Culture Start: 10-11-2022 Radex shoulder compl ete minimum 2 views Brad Herman MD Work Phone: Start: 07-11-2022 Urnls dip stick/tabl et rgnt auto w/o microscopy Catracho Wan [employer] Work Phone: Start: 06-12-2022 Urnls dip stick/tabl et rgnt auto w/o microscopy [facility] Provider Start: 05-16-2022 Hemoglobin A1c/Hemoglobin.total in Blood Pollyjuanita Grant [employer] Work Phone: Start: 04-25-2022 Radex foot complete minimum 3 views Jaron Ayala MD Work Phone: Start: 04-05-2022 Us pelvic nonobstetr ic image dcmtn limited/f/u Domenica Wan MD Work Phone: Start: 04-02-2022 Urnls dip stick/tabl et rgnt auto w/o microscopy Bree Montalvo [employer] Work Phone: Start: 11-30-2021 Urnls dip stick/tabl et rgnt auto w/o microscopy Polly Quintero [employer] Work Phone: Start: 11-30-2021 Hemoglobin A1c/Hemoglobin.total in Blood Polly Quintero [employer] Work Phone: Start: 11-16-2021 Radex forearm 2 views R ebeklani Herrera [employer] Work Phone: Start: 09-14-2021 URINE (QUINTIN SE PERFORM) (AV,FV,TAIWO,MC,ME,MM,SP) Polly Quintero [employer] Work Phone: Start: 09-14-2021 Radex shoulder compl ete minimum 2 views Polly Grant [employer] Work Phone: Start: 09-14-2021 Gluc bld gluc mntr d ev cleared fda spec home use Pollyjuanita Quintero [employer] Work Phone: Start: 09-14-2021 Adult depression scr eening assessment Polly Arciniegamary kay [employer] Work Phone: Start: 09-07-2021 Radex spine thoracic 2 views Polly Rudy [employer] Work Phone: Start: 08-29-2021 Adult depression scr eening assessment Polly Hernadezmindy [employer] Work Phone: Start: 07-03-2021 CT angiography of ch est with contrast Start: 07-02-2021 Radiologic exam ches t 2 views Rosina Iverson [employer] Work Phone: Start: 06-05-2021 BACTERIAL VAGINOSIS AMPLIFICATION Aponte [employer].CNM Work Phone: Start: 06-05-2021 Iadna chlamydia trac homatis amplified probe tq Aponte [employer].CNM Work Phone: Start: 08-21-2020 Adult depression scr eening assessment Maria R Marley PA-C Work Phone: Start: 07-07-2020 Radex ribs uni w/pos teroant ch minimum 3 views Karlos Fowler [employer], DNP Work Phone: section GAVI JAIN MD Comment on above: 2014 Cholecystectomy GAVI MEDINA MD Comment on above: 2007 Foot structure (body structure) GAVI DOTSON MD Comment on above: left x 2 heel spur & nerve repair Plantar (qualifier value) BETO MESSINA MD Comment on above: LEFT FOOT ENDOSCOPIC FASCIOTOMY 2016 SARS-CoV-2 & FLU Ant igen (Rapid) Structure of wisdom tooth (body structure) GAVI DOTSON MD Plan of Treatment Date Care Activity Detail Author Start: 04-02-2027 HPV TESTING HPV TESTING [facility] Start: 04-02-2027 PAP TESTING PAP TESTING [facility] Start: 04-02-2027 Screening for malignant neoplasm of cervix [facility] Start: 10-22-2025 Annual PCP Team Chronic Disease Visit Annual PCP Team Chronic Disease Visit [facility] Start: 08-27-2025 Annual PCP Team Chronic Disease Visit Annual PCP Team Chronic Disease Visit [facility] Start: 08-27-2025 Anxiety Screening Anxiety Screening [facility] Start: 08-27-2025 Depression Screening Depression Screening [facility] Start: 08-27-2025 Diabetic foot examination Diabetic Foot Exam [facility] Start: 08-27-2025 Hepatitis B screening Urine Albumin:Creatinine Ratio [facility] Start: 08-27-2025 Hepatitis B surface antibody level LDL Cholesterol [facility] Start: 08-27-2025 Pneumococcal vaccination Pneumococcal Vaccine (2 of 2 - PCV) [facility] Comment on above: Postponed from 01/22/2017 (Declined at t his time) Start: 08-27-2025 Urine microalbumin profile DTaP,Tdap,Td Vaccine (1 - Tdap) [facility] Comment on above: Postponed from 2003 (Declined at t his time) Start: 08-13-2025 Annual PCP Team Chronic Disease Visit Annual PCP Team Chronic Disease Visit [facility] Start: 07-20-2025 Annual PCP Team Chronic Disease Visit Annual PCP Team Chronic Disease Visit [facility] Start: 07-06-2025 Annual PCP Team Chronic Disease Visit Annual PCP Team Chronic Disease Visit [facility] Start: 03-18-2025 Glaucoma screening Dilated Retinal Exam [facility] Start: 02-26-2025 Annual PCP Team Chronic Disease Visit Annual PCP Team Chronic Disease Visit [facility] Start: 02-26-2025 Covid-19 Vaccine ( season) Covid-19 Vaccine () [facility] Comment on above: Postponed from 11/16/2023 (Declined at t his time) Start: 02-26-2025 Hemoglobin A1c measurement HbA1C [facility] Start: 02-23-2025 Annual PCP Team Chronic Disease Visit Annual PCP Team Chronic Disease Visit [facility] Start: 01-22-2025 Annual PCP Team Chronic Disease Visit Annual PCP Team Chronic Disease Visit [facility] Start: 01-07-2025 End: 01-07-2025 Patient encounter procedure 01/07/2025 2:00 PM EDT Office Visit [facility] [address] [place], [place] [id number] Gigi Carrillo DO [address] [place], [place] [id number] discuss meds [facility] [place] Comment on above: discuss meds Start: 12-17-2024 End: 12-17-2024 Patient encounter procedure 12/17/2024 9:15 AM EDT Office Visit [facility] [address] [place] [phone] Chang Kent APRN.[employer] [address] [place], [place] [phone] Esophageal reflux disease with esophagitis without bleeding [K21.00] [facility] [place] Comment on above: Esophageal reflux disease with esophagit is without bleeding [K21.00] Start: 12-03-2024 End: 12-03-2024 Patient encounter procedure 12/03/2024 10:30 AM EDT Office Visit [facility] [address] [place] [address] Alejandro Snider [employer] [address] [id number] Excess Skin After Weight Loss [facility] Comment on above: Excess Skin After Weight Loss Start: 12-03-2024 End: 12-03-2024 Patient encounter procedure 12/03/2024 8:40 AM EDT Office Visit [facility] [place] [address] [place], [place] [phone] Mook Mcguire, [employer]OSS[employer] [address] [place], [place] [phone] 3 month f/up [facility] Comment on above: 3 month f/up Start: 11-22-2024 End: 03-03-2025 Hemoglobin A1c in Blood HEMOGLOBIN A1C Lab Routine Controlled type 2 diabetes mellitus without complication, without long-term current use of insulin (HCC) Fatigue, unspecified type Expected: 11/22/2024, Expires: 03/03/2025 [facility] Work Phone: Comment on above: Expected: 11/22/2024, Expires: Start: 11-22-2024 End: 03-03-2025 Iron and Iron binding capacity panel - Serum or Plasma IRON AND TIBC Lab Routine Controlled type 2 diabetes mellitus without complication, without long-term current use of insulin (HCC) Fatigue, unspecified type Expected: 11/22/2024, Expires: 03/03/2025 [facility] Comment on above: Expected: 11/22/2024, Expires: Start: 11-20-2024 Annual PCP Team Chronic Disease Visit Annual PCP Team Chronic Disease Visit [facility] Start: 11-15-2024 Influenza vaccination [facility] Start: 11-12-2024 End: 11-12-2024 Patient encounter procedure 11/12/2024 10:10 AM EDT Office Visit [facility] [address] [place] [phone] Jessika Cox DO [address] [place], [place] [id number] Dx: Weight loss [R63.4]; Skin irritation [R23.8] [facility] Comment on above: Dx: Weight loss [R63.4]; Skin irritation [R23.8] Start: 11-10-2024 End: 11-10-2024 Patient encounter procedure 11/10/2024 10:00 AM EDT Appointment [facility] [address] [place] [id number] Acute left flank pain [R10.9] [facility] Comment on above: Acute left flank pain [R10.9] Start: 10-21-2024 Annual PCP Team Chronic Disease Visit Annual PCP Team Chronic Disease Visit [facility] Start: 10-02-2024 Annual PCP Team Chronic Disease Visit Annual PCP Team Chronic Disease Visit [facility] Start: 09-13-2024 Influenza vaccination Influenza Vaccine (#1) [place] [facility] Comment on above: Postponed from 11/16/2023 (Declined at t his time) Start: 09-07-2024 Annual PCP Team Chronic Disease Visit Annual PCP Team Chronic Disease Visit [facility] Start: 08-27-2024 End: 10-27-2024 Hemoglobin A1c in Blood [facility] Work Phone: Comment on above: Expected: 08/27/2024, Expires: Start: 08-27-2024 End: 11-26-2024 Lipid 1996 panel - Serum or Plasma [facility] Comment on above: Expected: 08/27/2024, Expires: Start: 08-27-2024 End: 08-27-2024 Patient encounter procedure [facility] [place] Comment on above: 6 month f/up 1st attempt to [place] - lm - 07/12 Start: 07-22-2024 Annual PCP Team Chronic Disease Visit Annual PCP Team Chronic Disease Visit [facility] Start: 07-20-2024 End: 10-19-2024 CBC W Auto Differential panel - Blood [facility] Comment on above: Expected: 07/20/2024, Expires: Start: 07-20-2024 End: 10-19-2024 Comprehensive metabolic 2000 panel - Serum or Plasma [facility] Comment on above: Expected: 07/20/2024, Expires: Start: 07-20-2024 End: 10-19-2024 EDYTA CARPENTER PANEL [facility] Work Phone: Comment on above: Expected: 07/20/2024, Expires: Start: 07-12-2024 Hemoglobin A1c measurement HbA1C [facility] Start: 07-01-2024 End: 07-01-2024 Patient encounter procedure 07/01/2024 9:40 AM EDT Office Visit [facility] [place] [address] [facility] [place] [address] Ilana Herrera APRN.GUM COOK [address] [facility] [place] [id number] med check [facility] [place] Comment on above: med check Start: 06-03-2024 Annual PCP Team Chronic Disease Visit Annual PCP Team Chronic Disease Visit [facility] Start: 06-01-2024 Hepatitis B surface antibody level LDL Cholesterol [facility] Start: 04-25-2024 Annual PCP Team Chronic Disease Visit Annual PCP Team Chronic Disease Visit [facility] Start: 04-25-2024 Anxiety Screening Anxiety Screening [facility] Start: 04-25-2024 Covid-19 Vaccine (#1) Covid-19 Vaccine (#1) [facility] Comment on above: Postponed from 1984 (Declined at t his time) Start: 04-25-2024 Covid-19 Vaccine () Covid-19 Vaccine () [facility] Comment on above: Postponed from 11/15/2022 (Declined at t his time) Start: 04-25-2024 Depression Screening Depression Screening [facility] Start: 04-25-2024 Diabetic foot examination Diabetic Foot Exam [facility] Start: 04-23-2024 Hemoglobin A1c measurement HbA1C [facility] Start: 2024 Screening for malignant neoplasm of breast Mammogram Screening [facility] Start: 04-04-2024 Hemoglobin A1c measurement HbA1C [facility] Start: 04-01-2024 End: 04-01-2024 Patient encounter procedure 04/01/2024 10:30 AM EST Appointment LD SURGERY [address] [place] [address] Goldie Caldwell MD [facility] [place] [address] LD SURGERY Start: 03-29-2024 End: 06-28-2024 Hemoglobin A1c in Blood HEMOGLOBIN A1C Lab Routine Controlled type 2 diabetes mellitus without complication, without long-term current use of insulin (HCC) Expected: 03/29/2024, Expires: 06/28/2024 [facility] Work Phone: Comment on above: Expected: 03/29/2024, Expires: Start: 03-01-2024 End: 03-01-2024 Patient encounter procedure General Surgery Comment on above: Gastroesophageal reflux disease without esophagitis [K21.9] Gastroesophageal ref lux disease without esophagitis, Globus sensation, Start: 02-27-2024 End: 05-28-2024 Microalbumin/Creatinine [Mass Ratio] in Urine ALBUMIN/CREATININE RATIO, URINE Lab Routine Controlled type 2 diabetes mellitus without complication, without long-term current use of insulin (HCC) Expected: 02/27/2024, Expires: 05/28/2024 [facility] Comment on above: Expected: 02/27/2024, Expires: Start: 02-27-2024 End: 02-27-2024 Patient encounter procedure 02/27/2024 7:00 AM EST Office Visit Family [facility] [address] [facility] [place] [address] Polly Grant, MUCK BOSS.GUM COOK [address] [facility] [place] [address] 3 month [facility] Comment on above: 3 month Start: 02-20-2024 End: 02-20-2024 Patient encounter procedure [facility] Comment on above: 3 month Start: 02-15-2024 Annual PCP Team Chronic Disease Visit Annual PCP Team Chronic Disease Visit [facility] Start: 01-23-2024 End: 01-23-2024 Patient encounter procedure 01/23/2024 7:20 AM EST Office Visit Family [facility] [place] [address] [facility] [place] [address] Kevin Witt APRN.GUM COOK [address] [facility] [place] [address] thrush see phone note [facility] [place] Comment on above: thrush see phone note Start: 01-19-2024 End: 04-19-2024 Amylase [Enzymatic activity/volume] in Serum or Plasma [facility] Work Phone: Comment on above: Expected: 01/19/2024, Expires: Start: 01-19-2024 End: 04-19-2024 CBC W Auto Differential panel - Blood [facility] Comment on above: Expected: 01/19/2024, Expires: Start: 01-19-2024 End: 04-19-2024 Comprehensive metabolic 2000 panel - Serum or Plasma [facility] Comment on above: Expected: 01/19/2024, Expires: Start: 01-19-2024 End: 04-19-2024 Lipase [Enzymatic activity/volume] in Serum or Plasma [facility] Comment on above: Expected: 01/19/2024, Expires: Start: 01-12-2024 End: 04-12-2024 Hemoglobin A1c in Blood [facility] Work Phone: Comment on above: Expected: 01/12/2024, Expires: Start: 01-10-2024 Annual PCP Team Chronic Disease Visit Annual PCP Team Chronic Disease Visit [facility] Start: 01-10-2024 Pneumococcal vaccination [facility] Comment on above: Postponed from 01/22/2017 (Declined at t his time) Start: 01-02-2024 Annual PCP Team Chronic Disease Visit Annual PCP Team Chronic Disease Visit [facility] Start: 12-24-2023 End: 03-24-2024 Fungus identified in Unspecified specimen by Culture YEAST SCREEN Microbiology Routine Mouth pain Expected: 12/24/2023, Expires: 03/24/2024 [facility] Work Phone: Comment on above: Expected: 12/24/2023, Expires: Start: 12-05-2023 End: 12-05-2023 Patient encounter procedure 12/05/2023 8:00 AM EDT Office Visit General Surgery [address] [address] Rashida Estevez, DO [address] [place] [address] LAPAROSCOPIC APPENDECTOMY ADULT [2366] General Surgery Comment on above: LAPAROSCOPIC APPENDECTOMY ADULT [2366] Start: 12-03-2023 Hemoglobin A1c measurement HbA1C [facility] Start: 11-21-2023 End: 11-21-2023 Patient encounter procedure 11/21/2023 10:40 AM EDT Office Visit [facility] [place] [address] [place], [place] [phone] Ilana Herrera APRN.GUM COOK [address] [place], [place] [id number] Phentermine. follow up [facility] Comment on above: Phentermine. follow up Start: 11-19-2023 End: 11-19-2023 Admission to same day surgery center 11/19/2023 9:48 AM EDT - 11/19/2023 11:23 AM EDT Surgery [facility] Surgery [address] [place] [id number] Rashida Estevez, DO [address] [place] [address] LAPAROSCOPIC APPENDECTOMY ADULT [facility] Surgery Comment on above: LAPAROSCOPIC APPENDECTOMY ADULT Start: 11-19-2023 End: 11-19-2023 Laparoscopic appendectomy LAPAROSCOPIC APPENDECTOMY ADULT [facility] 11/19/2023 9:48 AM EDT ME OR Start: 11-19-2023 Subsequent hospital visit by physician [facility] Surgery Comment on above: Appendicolith [K38.9] Start: 11-16-2023 Covid-19 Vaccine ( season) Covid-19 Vaccine ( season) [facility] Start: 11-16-2023 Covid-19 Vaccine ( season) Covid-19 Vaccine ( season) [facility] Start: 11-16-2023 Influenza vaccination [facility] Start: 11-11-2023 End: 11-11-2023 Anesthesia consultation 11/11/2023 11:10 AM EDT PAT Pre Anesthesia [address] [place] [address] Virtual Pacc/ph [phone] Pre Anesthesia Comment on above: Virtual Pacc/ph [phone] Start: 11-04-2023 End: 11-04-2023 Patient encounter procedure 11/04/2023 8:15 AM EDT Office Visit General Surgery [address] [place], [place] [phone] Goldie Caldwell MD [address] [place] [id number] Appendicolith [K38.9] General Surgery Comment on above: Appendicolith [K38.9] Start: 10-29-2023 End: 10-29-2023 Patient encounter procedure 10/29/2023 3:45 PM EDT Office Visit General Surgery [address] [place], [place] [id number] Karlos Alexis MD [address] [place] [address] Surgery consultation General Surgery Comment on above: Surgery consultation Start: 10-26-2023 Annual PCP Team Chronic Disease Visit Annual PCP Team Chronic Disease Visit [facility] Start: 10-26-2023 Urine microalbumin profile DTaP,Tdap,Td Vaccine (1 - Tdap) [facility] Comment on above: Postponed from 2003 (Declined at t his time) Start: 10-23-2023 End: 01-22-2024 Hemoglobin A1c in Blood HEMOGLOBIN A1C Lab Routine Controlled type 2 diabetes mellitus without complication, without long-term current use of insulin (HCC) Expected: 10/23/2023, Expires: 01/22/2024 [facility] Work Phone: Comment on above: Expected: 10/23/2023, Expires: Start: 10-23-2023 Hepatitis B screening Urine Albumin:Creatinine Ratio [facility] Start: 10-23-2023 Hepatitis B surface antibody level LDL Cholesterol [facility] Start: 10-23-2023 End: 10-23-2023 Patient encounter procedure Cat Scan Comment on above: Right lower quadrant abdominal pain [R10 .31]; Nausea [R11.0] Start: 10-22-2023 End: 10-22-2023 Patient encounter procedure 10/22/2023 4:00 PM EDT Office Visit [facility] [place] [address] [place], [place] [phone] Polly Grant APRN.GUM COOK [address] [place], [place] [phone] 2 month f/u [facility] Comment on above: 2 month f/u Start: 10-22-2023 End: 01-21-2024 CBC W Auto Differential panel - Blood [facility] Comment on above: Expected: 10/22/2023, Expires: 4 Start: 10-22-2023 End: 01-21-2024 Comprehensive metabolic 2000 panel - Serum or Plasma [facility] Work Phone: Comment on above: Expected: 10/22/2023, Expires: 4 Start: 10-21-2023 End: 10-21-2023 Manual pelvic examination 10/21/2023 2:00 PM EDT Procedure OB/Gynecology [address] [place] [phone] Pelvic pain in female [R10.2]; Irregular menstrual cycle [N92.6] OB/Gynecology Comment on above: Pelvic pain in female [R10.2]; Irregular menstrual cycle [N92.6] Start: 10-17-2023 End: 10-16-2024 US Pelvis PELVIC US [facility] Anc Imaging Routine Pelvic pain in female Irregular menstrual cycle Expected: 10/17/2023, Expires: 10/16/2024 [facility] Work Phone: Comment on above: Expected: 10/17/2023, Expires: 5 Start: 10-12-2023 ANNUAL PCP TEAM CHRONIC DISEASE VISIT ANNUAL PCP TEAM CHRONIC DISEASE VISIT [facility] Start: 09-14-2023 Influenza vaccination Influenza Vaccine (#1) [facility] Comment on above: Postponed from 11/15/2022 (Declined at t his time) Start: 09-06-2023 Hemoglobin A1c measurement HbA1C [facility] Start: 07-25-2023 End: 07-25-2023 Patient encounter procedure 07/25/2023 8:40 AM EDT Office Visit [facility] [place] [address] [facility] [place] [address] Ilana Herrera APRN.GUM COOK [address] [place] [address] 3 month f/up [facility] [place] Comment on above: 3 month f/up Start: 07-16-2023 End: 07-16-2023 Patient encounter procedure 07/16/2023 3:20 PM EDT Office Visit OB/Gynecology [address] [place] [address] Natasha Meadows MD [address] [place] [address] post op, see phone note 07/15/23, ok per clinical OB/Gynecology Comment on above: post op, see phone note 07/15/23, ok per clinical Start: 07-13-2023 ANNUAL PCP TEAM CHRONIC DISEASE VISIT ANNUAL PCP TEAM CHRONIC DISEASE VISIT [facility] Start: 07-04-2023 Ambulation without limitation [facility] Start: 07-04-2023 Medical regimen orders management [facility] Start: 07-04-2023 Medication education [facility] Start: 07-04-2023 Patient discharge [facility] Start: 07-04-2023 Procedure discontinued [facility] Start: 07-04-2023 Taking patient vital signs [facility] Start: 07-04-2023 Vital signs measurements [facility] Start: 07-04-2023 [facility] Start: 06-21-2023 ANNUAL PCP TEAM CHRONIC DISEASE VISIT ANNUAL PCP TEAM CHRONIC DISEASE VISIT [facility] Start: 06-08-2023 ANNUAL PCP TEAM CHRONIC DISEASE VISIT ANNUAL PCP TEAM CHRONIC DISEASE VISIT [facility] Start: 05-17-2023 ANNUAL PCP TEAM CHRONIC DISEASE VISIT ANNUAL PCP TEAM CHRONIC DISEASE VISIT [facility] Start: 04-25-2023 End: 07-25-2023 CBC W Auto Differential panel - Blood CBC + DIFF Lab Routine Uncontrolled type 2 diabetes mellitus with hyperglycemia (HCC) Expected: 04/25/2023, Expires: 07/25/2023 [facility] Work Phone: Comment on above: Expected: 04/25/2023, Expires: Start: 04-25-2023 End: 07-25-2023 Comprehensive metabolic 2000 panel - Serum or Plasma COMP METABOLIC PANEL Lab Routine Uncontrolled type 2 diabetes mellitus with hyperglycemia (HCC) Expected: 04/25/2023, Expires: 07/25/2023 [facility] Work Phone: Comment on above: Expected: 04/25/2023, Expires: Start: 04-25-2023 End: 07-25-2023 Hemoglobin A1c in Blood HGB A1C Lab Routine Uncontrolled type 2 diabetes mellitus with hyperglycemia (HCC) Expected: 04/25/2023, Expires: 07/25/2023 [facility] Work Phone: Comment on above: Expected: 04/25/2023, Expires: Start: 04-25-2023 End: 07-25-2023 Lipid 1996 panel - Serum or Plasma LIPID PANEL BASIC Lab Routine Wellness examination Expected: 04/25/2023, Expires: 07/25/2023 [facility] Work Phone: Comment on above: Expected: 04/25/2023, Expires: Start: 04-24-2023 Hemoglobin A1c/Hemoglobin.total in Blood HbA1C [facility] Start: 04-02-2023 ANNUAL PCP TEAM CHRONIC DISEASE VISIT ANNUAL PCP TEAM CHRONIC DISEASE VISIT [facility] Start: 03-17-2023 Behavioral Health Screening Behavioral Health Screening [facility] Start: 03-17-2023 zzBehavioral Health Screening zBehavioral Health Screening [facility] Start: 03-16-2023 DEPRESSION ASSESSMENT DEPRESSION ASSESSMENT [facility] Comment on above: Postponed from 03/17/2022 (Declined at t his time) Start: 03-14-2023 ANNUAL PCP TEAM CHRONIC DISEASE VISIT ANNUAL PCP TEAM CHRONIC DISEASE VISIT [facility] Start: 03-06-2023 ANNUAL PCP TEAM CHRONIC DISEASE VISIT ANNUAL PCP TEAM CHRONIC DISEASE VISIT [facility] Start: 02-14-2023 End: 05-16-2023 Thyrotropin [Units/volume] in Serum or Plasma TSH BLD Lab Routine Major depressive disorder with current active episode, unspecified depression episode severity, unspecified whether recurrent Expected: 02/14/2023, Expires: 05/16/2023 [facility] Work Phone: Comment on above: Expected: 02/14/2023, Expires: Start: 02-13-2023 3 comp foot exam completed DIABETIC FOOT EXAM [facility] Start: 02-13-2023 ANNUAL PCP TEAM CHRONIC DISEASE VISIT ANNUAL PCP TEAM CHRONIC DISEASE VISIT [facility] Start: 02-13-2023 COVID-19 VACCINE (#1) COVID-19 VACCINE (#1) [facility] Comment on above: Postponed from 1984 (Declined at t his time) Start: 02-13-2023 Hepatitis B screening URINE ALBUMIN:CREATININE RATIO [facility] Start: 01-01-2023 HPV TESTING HPV TESTING [facility] Start: 01-01-2023 PAP TESTING PAP TESTING [facility] Start: 11-30-2022 ANNUAL PCP TEAM CHRONIC DISEASE VISIT ANNUAL PCP TEAM CHRONIC DISEASE VISIT [facility] Start: 11-30-2022 Hepatitis B surface antibody level LDL CHOLESTEROL [facility] Start: 11-16-2022 ANNUAL PCP TEAM CHRONIC DISEASE VISIT ANNUAL PCP TEAM CHRONIC DISEASE VISIT [facility] Start: 11-15-2022 Influenza vaccination [facility] Start: 10-11-2022 End: 12-11-2022 Basic metabolic 2000 panel - Serum or Plasma BASIC METABOLIC PNL Lab Routine Diarrhea, unspecified type Expected: 10/11/2022, Expires: 12/11/2022 [facility] Work Phone: Comment on above: Expected: 10/11/2022, Expires: 3 Start: 10-11-2022 End: 12-11-2022 CBC W Auto Differential panel - Blood CBC + DIFF Lab Routine Diarrhea, unspecified type Expected: 10/11/2022, Expires: 12/11/2022 [facility] Work Phone: Comment on above: Expected: 10/11/2022, Expires: 3 Start: 10-11-2022 End: 10-12-2023 ENTERIC BACTERIAL PANEL BY PCR ENTERIC BACTERIAL PANEL BY PCR Lab Routine Diarrhea, unspecified type Expected: 10/11/2022, Expires: 10/12/2023 [facility] Work Phone: Comment on above: Expected: 10/11/2022, Expires: 4 Start: 10-11-2022 End: 10-12-2023 Ova and parasites identified in Unspecified specimen by Light microscopy OVA + PARA MICROSCOPIC Microbiology Routine Diarrhea, unspecified type Expected: 10/11/2022, Expires: 10/12/2023 [facility] Work Phone: Comment on above: Expected: 10/11/2022, Expires: 4 Start: 10-05-2022 ANNUAL PCP TEAM CHRONIC DISEASE VISIT ANNUAL PCP TEAM CHRONIC DISEASE VISIT [facility] Start: 09-14-2022 Adult depression screening assessment DEPRESSION SCREENING [facility] Start: 09-14-2022 ANNUAL PCP TEAM CHRONIC DISEASE VISIT ANNUAL PCP TEAM CHRONIC DISEASE VISIT [facility] Start: 09-13-2022 Influenza vaccination INFLUENZA (#1) [facility] Comment on above: Postponed from 11/15/2021 (Declined at t his time) Start: 09-07-2022 ANNUAL PCP TEAM CHRONIC DISEASE VISIT ANNUAL PCP TEAM CHRONIC DISEASE VISIT [facility] Start: 08-29-2022 Adult depression screening assessment DEPRESSION SCREENING [facility] Start: 08-29-2022 ANNUAL PCP TEAM CHRONIC DISEASE VISIT ANNUAL PCP TEAM CHRONIC DISEASE VISIT [facility] Start: 08-29-2022 PNEUMOCOCCAL (2 - PCV) PNEUMOCOCCAL (2 - PCV) [facility] Comment on above: Postponed from 01/22/2017 (Declined at t his time) Start: 08-29-2022 Urine microalbumin profile DTAP,TDAP,TD (1 - Tdap) [facility] Comment on above: Postponed from 2003 (Declined at t his time) Start: 08-16-2022 Hemoglobin A1c/Hemoglobin.total in Blood HBA1C [facility] Start: 08-10-2022 ANNUAL PCP TEAM CHRONIC DISEASE VISIT ANNUAL PCP TEAM CHRONIC DISEASE VISIT [facility] Start: 07-13-2022 ANNUAL PCP TEAM CHRONIC DISEASE VISIT ANNUAL PCP TEAM CHRONIC DISEASE VISIT [facility] Start: 07-02-2022 ANNUAL PCP TEAM CHRONIC DISEASE VISIT ANNUAL PCP TEAM CHRONIC DISEASE VISIT [facility] Start: 07-02-2022 Hepatitis B surface antibody level LDL CHOLESTEROL [facility] Start: 06-12-2022 End: 08-12-2022 Bacteria identified in Urine by Culture [facility] Work Phone: Comment on above: Expected: 06/12/2022, Expires: 3 Start: 06-07-2022 End: 08-07-2022 ALBUMIN/CREAT RATIO RND UR ALBUMIN/CREAT RATIO RND UR Lab Routine Uncontrolled type 2 diabetes mellitus with hyperglycemia (HCC) Expected: 06/07/2022, Expires: 08/07/2022 [facility] Work Phone: Comment on above: Expected: 06/07/2022, Expires: 3 Start: 06-07-2022 End: 08-07-2022 CBC W Auto Differential panel - Blood CBC + DIFF Lab Routine Obesity (BMI 30-39.9) Expected: 06/07/2022, Expires: 08/07/2022 [facility] Work Phone: Comment on above: Expected: 06/07/2022, Expires: 3 Start: 06-07-2022 End: 08-07-2022 Comprehensive metabolic 2000 panel - Serum or Plasma COMP METABOLIC PANEL Lab Routine Uncontrolled type 2 diabetes mellitus with hyperglycemia (HCC) Elevated BP without diagnosis of hypertension Obesity (BMI 30-39.9) Expected: 06/07/2022, Expires: 08/07/2022 [facility] Work Phone: Comment on above: Expected: 06/07/2022, Expires: 3 Start: 05-30-2022 Hemoglobin A1c/Hemoglobin.total in Blood HBA1C [facility] Start: 05-14-2022 Hemoglobin A1c/Hemoglobin.total in Blood HBA1C [facility] Start: 04-02-2022 End: 04-02-2023 PELVIC US [facility] PELVIC US [facility] Anc Imaging Routine Pelvic pain in female Expected: 04/02/2022, Expires: 04/02/2023 [facility] Work Phone: Comment on above: Expected: 04/02/2022, Expires: Start: 03-28-2022 ANNUAL PCP TEAM CHRONIC DISEASE VISIT ANNUAL PCP TEAM CHRONIC DISEASE VISIT [facility] Start: 03-17-2022 DEPRESSION ASSESSMENT DEPRESSION ASSESSMENT [facility] Start: 03-17-2022 Glaucoma screening Dilated Retinal Exam [facility] Start: 03-17-2022 Hepatitis C antibody, confirmatory test DILATED RETINAL EXAM [facility] Start: 03-06-2022 End: 05-06-2022 Fibrin D-dimer FEU [Mass/volume] in Platelet poor plasma [facility] Work Phone: Comment on above: Expected: 03/06/2022, Expires: 3 Start: 02-13-2022 End: 04-15-2022 ALBUMIN/CREAT RATIO RND UR [facility] Work Phone: Comment on above: Expected: 02/13/2022, Expires: 3 Start: 02-13-2022 End: 04-15-2022 CBC W Auto Differential panel - Blood [facility] Work Phone: Comment on above: Expected: 02/13/2022, Expires: 3 Start: 02-13-2022 End: 04-15-2022 Comprehensive metabolic 2000 panel - Serum or Plasma [facility] Work Phone: Comment on above: Expected: 02/13/2022, Expires: 3 Start: 02-13-2022 End: 04-15-2022 Hemoglobin A1c in Blood [facility] Work Phone: Comment on above: Expected: 02/13/2022, Expires: 3 Start: 01-20-2022 End: 02-03-2022 Influenza virus A and B RNA and SARS-CoV-2 (COVID-19) N gene panel - Respiratory specimen by FAUSTINA with probe detection COVID WITH FLUA+B, ROUTINE Microbiology Routine At increased risk of exposure to COVID-19 virus Expected: 01/20/2022, Expires: 02/03/2022 [facility] Work Phone: Comment on above: Expected: 01/20/2022, Expires: 2 Start: 01-10-2022 COVID-19 VACCINE (#1) COVID-19 VACCINE (#1) [facility] Comment on above: Postponed from 1989 (Declined at t his time) Postponed from 10/07 (Declined at this time) Start: 01-10-2022 COVID-19 VACCINE (1) COVID-19 VACCINE (1) [facility] Comment on above: Postponed from 1989 (Declined at t his time) Start: 11-30-2021 End: 01-30-2022 CBC W Auto Differential panel - Blood [facility] Work Phone: Comment on above: Expected: 11/30/2021, Expires: 2 Start: 11-30-2021 End: 01-30-2022 Comprehensive metabolic 2000 panel - Serum or Plasma [facility] Work Phone: Comment on above: Expected: 11/30/2021, Expires: 2 Start: 11-30-2021 End: 01-30-2022 Lipid 1996 panel - Serum or Plasma [facility] Work Phone: Comment on above: Expected: 11/30/2021, Expires: 2 Start: 11-30-2021 End: 01-30-2022 Thyrotropin [Units/volume] in Serum or Plasma [facility] Work Phone: Comment on above: Expected: 11/30/2021, Expires: 2 Start: 11-15-2021 Influenza vaccination INFLUENZA (#1) [facility] Start: 11-10-2021 End: 01-10-2022 Hemoglobin A1c/Hemoglobin.total in Blood HGB A1C Lab Routine Type 2 diabetes mellitus without complication, unspecified whether half-way insulin use (HCC) Expected: 11/10/2021, Expires: 01/10/2022 [facility] Work Phone: Comment on above: Expected: 11/10/2021, Expires: 2 Start: 11-01-2021 Hemoglobin A1c/Hemoglobin.total in Blood HBA1C [facility] Start: 09-25-2021 Hepatitis B screening URINE ALBUMIN:CREATININE RATIO [facility] Start: 09-25-2021 Hepatitis B surface antibody level LDL CHOLESTEROL [facility] Start: 09-14-2021 End: 11-14-2021 CBC panel - Blood by Automated count CBC Lab Routine Dizziness Expected: 09/14/2021, Expires: 11/14/2021 [facility] Work Phone: Comment on above: Expected: 09/14/2021, Expires: 2 Start: 09-14-2021 End: 11-14-2021 Comprehensive metabolic 2000 panel - Serum or Plasma COMP METABOLIC PANEL Lab Routine Dizziness Expected: 09/14/2021, Expires: 11/14/2021 [facility] Work Phone: Comment on above: Expected: 09/14/2021, Expires: 2 Start: 08-21-2021 Adult depression screening assessment DEPRESSION SCREENING [facility] Start: 08-01-2021 End: 10-01-2021 Comprehensive metabolic 2000 panel - Serum or Plasma [facility] Work Phone: Comment on above: Expected: 08/01/2021, Expires: 2 Start: 08-01-2021 End: 10-01-2021 Hemoglobin A1c/Hemoglobin.total in Blood [facility] Work Phone: Comment on above: Expected: 08/01/2021, Expires: 2 Start: 07-02-2021 End: 09-01-2021 Fibrin D-dimer FEU [Mass/volume] in Platelet poor plasma [facility] Work Phone: Comment on above: Expected: 07/02/2021, Expires: 2 Start: 06-26-2021 Hemoglobin A1c/Hemoglobin.total in Blood HBA1C [facility] Start: 03-17-2021 DEPRESSION ASSESSMENT DEPRESSION ASSESSMENT [facility] Start: 03-26-2020 Hepatitis C antibody, confirmatory test DILATED RETINAL EXAM [facility] Start: 11-12-2019 3 comp foot exam completed DIABETIC FOOT EXAM [facility] Start: 01-22-2017 PNEUMOCOCCAL (2 - PCV) PNEUMOCOCCAL (2 - PCV) [facility] Start: 01-22-2017 Pneumococcal vaccination [facility] Start: 2011 HPV Vaccine (1 - 3-dose SCDM series) HPV Vaccine (1 - 3-dose SCDM series) [facility] Start: 2003 Urine microalbumin profile [facility] Start: 2002 Anxiety Screening Anxiety Screening [facility] Start: 2002 Depression Screening Depression Screening [facility] Start: 1984 COVID-19 VACCINE (#1) COVID-19 VACCINE (#1) [facility] Bacteria identified in Urine by Culture URINE CULTURE Microbiology Routine Urinary frequency Ordered: 07/11/2022 [facility] Work Phone: Comment on above: Ordered: 07/11/2022 Bacteria identified in Urine by Culture URINE CULTURE Microbiology Routine Dysuria 10/03/2023 2:06 PM EDT [facility] Bacteria identified in Urine by Culture URINE CULTURE Microbiology Routine Burning with urination 02/08/2024 2:45 PM EST [facility] Work Phone: Bacteria identified in Urine by Culture BACTERIAL CULTURE, URINE Microbiology Routine Urinary frequency 03/28/2024 3:26 PM EST [facility] Bacteria identified in Urine by Culture BACTERIAL CULTURE, URINE Microbiology Routine Urinary tract infection symptoms Flank pain 07/06/2024 1:32 PM EDT [facility] Work Phone: Bacteria identified in Urine by Culture BACTERIAL CULTURE, URINE Microbiology Routine Burning with urination Ordered: 11/09/2024 [facility] Work Phone: Comment on above: Ordered: 11/09/2024 BACTERIAL VAGINOSIS NAAT BACTERI AL VAGINOSIS NAAT Lab Routine Dysuria 10/03/2023 2:52 PM EDT [facility] BACTERIAL VAGINOSIS NAAT BACTERI AL VAGINOSIS NAAT Lab Routine Pelvic pain in female 10/17/2023 4:42 PM EDT [facility] BACTERIAL VAGINOSIS NAAT BACTERI AL VAGINOSIS NAAT Lab Routine Burning with urination Encounter for screening for bacterial sexually transmitted disease 02/08/2024 2:45 PM EST [facility] BACTERIAL VAGINOSIS NAAT BACTERI AL VAGINOSIS NAAT Lab Routine Urinary frequency 03/28/2024 3:26 PM EST [facility] BACTERIAL VAGINOSIS NAAT BACTERI AL VAGINOSIS NAAT Lab Routine Vaginal itching Ordered: 11/09/2024 [facility] Comment on above: Ordered: 11/09/2024 MARCELO/TRICHOMONAS NAAT MARCLEO /TRICHOMONAS NAAT Lab Routine Dysuria 10/03/2023 2:52 PM EDT [facility] MARCELO/TRICHOMONAS NAAT MARCELO /TRICHOMONAS NAAT Lab Routine Pelvic pain in female 10/17/2023 4:42 PM EDT [facility] MARCELO/TRICHOMONAS NAAT MARCELO /TRICHOMONAS NAAT Lab Routine Screening for STD (sexually transmitted disease) Ordered: 02/02/2024 [facility] Comment on above: Ordered: 02/02/2024 MARCELO/TRICHOMONAS NAAT MARCELO /TRICHOMONAS NAAT Lab Routine Burning with urination Encounter for screening for bacterial sexually transmitted disease 02/08/2024 2:45 PM EST [facility] MARCELO/TRICHOMONAS NAAT MARCELO /TRICHOMONAS NAAT Lab Routine Urinary frequency 03/28/2024 3:26 PM [facility] MARCELO/TRICHOMONAS NAAT MARCELO /TRICHOMONAS NAAT Lab Routine Vaginal itching Ordered: 11/09/2024 [facility] Comment on above: Ordered: 11/09/2024 Chlamydia trachomatis+Neisseria gonorrhoeae DNA [Presence] in Unspecified specimen by FAUSTINA with probe detection [facility] Work Phone: Comment on above: Ordered: 10/03/2023 Chlamydia trachomatis+Neisseria gonorrhoeae DNA [Presence] in Unspecified specimen by FAUSTINA with probe detection GONORRHEA/CHLAMYDIA NAAT Lab Routine Screening for STD (sexually transmitted disease) Ordered: 02/02/2024 [facility] Work Phone: Comment on above: Ordered: 02/02/2024 Chlamydia trachomatis+Neisseria gonorrhoeae DNA [Presence] in Unspecified specimen by FAUSTINA with probe detection GONORRHEA/CHLAMYDIA NAAT Lab Routine Burning with urination Encounter for screening for bacterial sexually transmitted disease 02/08/2024 2:45 PM [facility] Chlamydia trachomatis+Neisseria gonorrhoeae DNA [Presence] in Unspecified specimen by FAUSTINA with probe detection GONORRHEA/CHLAMYDIA NAAT Lab Routine Urinary frequency 03/28/2024 3:26 PM [facility] Clostridioides diffi cile toxin genes [Presence] in Stool by FAUSTINA with probe detection C. DIFFICILE PCR Lab Routine Diarrhea, unspecified type Ordered: 08/01/2021 [facility] Work Phone: Comment on above: Ordered: 08/01/2021 Clostridioides diffi cile toxin genes [Presence] in Stool by FAUSTINA with probe detection C. DIFFICILE PCR Lab Routine Diarrhea, unspecified type Ordered: 10/11/2022 [facility] Work Phone: Comment on above: Ordered: 10/11/2022 End: 11-20-2024 CT Abdomen and Pelvis W contrast IV CT ABD/PEL W IVCON Radiology STAT Right lower quadrant abdominal pain Nausea 1 Occurrences starting 10/22/2023 until 11/20/2024 [facility] Comment on above: 1 Occurrences starting 10/22/2023 until 11/20/2024 End: 06-17-2025 DBT Breast - bilateral screening KAMILAH SCREENING W JADEN Radiology Routine Encounter for screening mammogram for breast cancer 1 Occurrences starting 05/18/2024 until 06/17/2025 [facility] Work Phone: Comment on above: 1 Occurrences starting 05/18/2024 until 06/17/2025 End: 04-05-2023 Dup-scan xtr veins unilateral/limited study US DVT LOWER LT Radiology STAT Pain and swelling of left lower leg Hx of foot surgery 1 Occurrences starting 03/06/2022 until 04/05/2023 [facility] Work Phone: Comment on above: 1 Occurrences starting 03/06/2022 until 04/05/2023 End: 03-01-2025 EGD DIAGNOSTIC EGD DIAGNOSTIC Endoscopy Routine Gastroesophageal reflux disease without esophagitis Globus sensation Bloating Upset stomach Nausea 1 Occurrences starting 03/01/2024 until 03/01/2025 [facility] Work Phone: Comment on above: 1 Occurrences starting 03/01/2024 until 03/01/2025 ENTERIC BACTERIAL PA NAVARRO BY PCR ENTERIC BACTERIAL PANEL BY PCR Lab Routine Diarrhea, unspecified type Ordered: 08/01/2021 [facility] Work Phone: Comment on above: Ordered: 08/01/2021 FECAL LACTOFERRIN/LEUKOCYTES FECAL LACTOFERRIN/LEUKOCYTES Lab Routine Diarrhea, unspecified type Ordered: 10/11/2022 [facility] Work Phone: Comment on above: Ordered: 10/11/2022 Glucose [Mass/volume ] in Serum or Plasma GLUCOSE, BLOOD (POC) Lab Routine Dizziness Ordered: 09/14/2021 [facility] Work Phone: Comment on above: Ordered: 09/14/2021 Glucose [Mass/volume ] in Serum or Plasma GLUCOSE, BLOOD (POC) Lab Routine Urinary frequency Ordered: 03/28/2024 [facility] Work Phone: Comment on above: Ordered: 03/28/2024 Hemoglobin A1c/Hemoglobin.total in Blood HEMOGLOBIN A1C (POC) Lab Routine Ordered: 11/30/2021 [facility] Work Phone: Comment on above: Ordered: 11/30/2021 Hemoglobin A1c/Hemoglobin.total in Blood HEMOGLOBIN A1C (POC) Lab Routine Uncontrolled type 2 diabetes mellitus with hyperglycemia (HCC) Ordered: 05/16/2022 [facility] Work Phone: Comment on above: Ordered: 05/16/2022 Influenza virus A an d B RNA and SARS-CoV-2 (COVID-19) N gene panel - Respiratory specimen by FAUSTINA with probe detection COVID WITH FLUA+B, ROUTINE Microbiology Routine Cough 06/25/2021 10:31 AM EDT [facility] Work Phone: Influenza virus A an d B RNA and SARS-CoV-2 (COVID-19) N gene panel - Respiratory specimen by FAUSTINA with probe detection COVID WITH FLUA+B, ROUTINE Microbiology Routine Flu-like symptoms Ordered: 06/12/2022 [facility] Work Phone: Comment on above: Ordered: 06/12/2022 Laparoscopic appendectomy LAPAROSCOPIC APPENDECTOMY ADULT [facility] OR End: 05-24-2024 MR Knee - left WO contrast MRI KNEE WO IVCON LEFT Radiology Routine Anterior knee pain, left 1 Occurrences starting 04/25/2023 until 05/24/2024 [facility] Work Phone: Comment on above: 1 Occurrences starting 04/25/2023 until 05/24/2024 End: 12-22-2022 Mri any jt upper extremity w/o contrast matrl MRI WRIST WO IVCON RT Radiology Routine Right wrist pain 1 Occurrences starting 11/22/2021 until 12/22/2022 [facility] Work Phone: Comment on above: 1 Occurrences starting 11/22/2021 until 12/22/2022 PAP FLUID CERVICAL SCREENING PAP FLUID CERVICAL SCREENING Lab Routine Cervical cancer screening 04/02/2022 10:12 AM EST [facility] Work Phone: Patient Education [facility] Work Phone: Patient referral [facility] Work Phone: End: 09-28-2022 Radex spine thoracic 2 views XR THORACIC LIMITED 2V AP/LAT Radiology Routine Upper back pain 1 Occurrences starting 08/29/2021 until 09/28/2022 [facility] Work Phone: Comment on above: 1 Occurrences starting 08/29/2021 until 09/28/2022 UA DIP, URINE (POC) UA DIP, URIN E (POC) Lab Routine Ordered: 11/30/2021 [facility] Work Phone: Comment on above: Ordered: 11/30/2021 UA DIP, URINE (POC) UA DIP, URIN E (POC) Lab Routine Abnormal uterine bleeding Lower abdominal pain Ordered: 04/02/2022 [facility] Work Phone: Comment on above: Ordered: 04/02/2022 UA DIP, URINE (POC) UA DIP, URIN E (POC) Lab Routine Urinary frequency Ordered: 08/31/2023 [facility] Work Phone: Comment on above: Ordered: 08/31/2023 Urine test visual color cmprsn meths HCG QUAL UR B/O Lab Routine Abnormal uterine bleeding Ordered: 04/02/2022 [facility] Work Phone: Comment on above: Ordered: 04/02/2022 End: 12-09-2025 US Kidney - bilateral and Urinary bladder US KIDNEY/BLADDER Radiology STAT Acute left flank pain 1 Occurrences starting 11/09/2024 until 12/09/2025 [facility] Comment on above: 1 Occurrences starting 11/09/2024 until 12/09/2025 End: 03-06-2023 US LEG VEIN DVT UNL VAS LAB US LEG VEIN DVT UNL VAS LAB Vascular Lab STAT Pain and swelling of left lower leg Hx of foot surgery 1 Occurrences starting 03/06/2022 until 03/06/2023 [facility] Work Phone: Comment on above: 1 Occurrences starting 03/06/2022 until 03/06/2023 End: 05-02-2023 Us pelvic nonobstetric image dcmtn limited/f/u US FEMALE PELVIS TRANSABD LTD Radiology Routine Pelvic pain in female 1 Occurrences starting 04/02/2022 until 05/02/2023 [facility] Work Phone: Comment on above: 1 Occurrences starting 04/02/2022 until 05/02/2023 End: 05-02-2023 Us transvaginal US FEMALE PELVIS TRANSVAG Radiology Routine Pelvic pain in female 1 Occurrences starting 04/02/2022 until 05/02/2023 [facility] Work Phone: Comment on above: 1 Occurrences starting 04/02/2022 until 05/02/2023 End: 09-16-2024 XR Clavicle - right 2 Views XR CLAVICLE 2V RIGHT Radiology Routine Strain of right trapezius muscle, sequela 1 Occurrences starting 08/18/2023 until 09/16/2024 [facility] Work Phone: Comment on above: 1 Occurrences starting 08/18/2023 until 09/16/2024 XR Clavicle - right 2 Views XR CLAVICLE 2V RIGHT Radiology Routine Strain of right trapezius muscle, sequela 08/18/2023 12:45 PM EDT [facility] End: 11-04-2022 XR FOOT GENERAL 3V AP/LAT/OBL RIGHT XR FOOT GENERAL 3V AP/LAT/OBL RIGHT Radiology Routine Foot pain, right 1 Occurrences starting 10/05/2021 until 11/04/2022 [facility] Work Phone: Comment on above: 1 Occurrences starting 10/05/2021 until 11/04/2022 End: 09-16-2024 XR Knee - left 4 Views XR KNEE GENERAL 4V AP BOTH/PA BOTH/LAT/MERC LEFT Radiology Routine Acute pain of right knee 1 Occurrences starting 08/18/2023 until 09/16/2024 [facility] Comment on above: 1 Occurrences starting 08/18/2023 until 09/16/2024 XR Knee - left 4 Views XR KNEE G ENERAL 4V AP BOTH/PA BOTH/LAT/MERC LEFT Radiology Routine Acute pain of right knee 08/18/2023 12:45 PM EDT [facility] End: 11-10-2023 XR SHOULDER GENERAL 3V OR MORE AP/TRUE AP/OTHER RIGHT XR SHOULDER GENERAL 3V OR MORE AP/TRUE AP/OTHER RIGHT Radiology Routine Acute pain of right shoulder 1 Occurrences starting 10/11/2022 until 11/10/2023 [facility] Work Phone: Comment on above: 1 Occurrences starting 10/11/2022 until 11/10/2023 XR SHOULDER GENERAL 3V OR MORE AP/TRUE AP/OTHER RIGHT XR SHOULDER GENERAL 3V OR MORE AP/TRUE AP/OTHER RIGHT Radiology Routine Acute pain of right shoulder 10/11/2022 4:25 PM EDT [facility] Work Phone: End: 12-20-2024 XR Wrist - right PA and Lateral and Oblique XR WRIST GENERAL 3V PA/LAT/OBL RIGHT Radiology STAT Injury of right shoulder, initial encounter Injury of right upper extremity, initial encounter Weakness of right arm 1 Occurrences starting 11/21/2023 until 12/20/2024 [facility] Work Phone: Comment on above: 1 Occurrences starting 11/21/2023 until 12/20/2024 [facility] Immunizations Immunization Date Immunization Notes Care Provider Cleopatra parisi 01-10-2021 influenza, injectabl e, quadrivalent, contains preservative Maria R Marley PA-C Work Phone: [facility] 01-10-2021 influenza virus vacc ine, unspecified formulation Gigi Carrillo DO Work Phone: [facility] 01-24-2020 influenza, injectabl e, quadrivalent, contains preservative Maria R Marley PA-C Work Phone: [facility] 11-20-2016 influenza, injectabl e, quadrivalent, contains preservative Maria R Marley PA-C Work Phone: [facility] 01-23-2016 pneumococcal polysaccharide vaccine, 23 valent Maria R Marley PA-C Work Phone: [facility] Work Phone: 01-02-2016 influenza, seasonal, injectable Maria R Marley PA-C Work Phone: [facility] Work Phone: Payers Date Payer Category Payer Self-pay [id number] 2022 Unknown [id number] 2022 Unknown [id number] 2018 Medicaid [employer] [employer] [place] [employer] [id number] 2018-Present [phone] [address] [place] [address] Medicaid [id number] 2018 Medicaid [id number] 1984 Unknown [id number] 1984 Unknown [id number] 1984 Unknown [id number] Unknown [id number] Unknown [id number] Unknown [id number] Unknown [id number] Social History Date Type Detail Facility Start: 09-25-2018 End: 11-16-2021 Tobacco smoking status NHIS Never smoked tobacco [facility] Start: 06-04-2021 End: 10-22-2024 Alcohol intake Current drinker of alcohol (finding) [facility] Start: 10-17-2020 History SDOH Alcohol Comment Rarely [facility] Start: 1985 Sex Assigned At Not on file [facility] Start: 06-07-2020 End: 02-13-2022 Exposure to SARS-CoV-2 (event) Not sure [facility] Work Phone: Start: 07-18-2020 End: 06-05-2023 Tobacco smoking status NHIS Unknown if ever smoked [facility] Start: 05-12-2015 None [facility] Start: 05-12-2015 With Family [facility] Start: 07-18-2020 Non-smoker [facility] Start: 1985 Sex Assigned At Female [facility] Sex Assigned At [facility] Start: 06-22-2021 End: 07-02-2021 Exposure to SARS-CoV-2 (event) Unable to assess [facility] Start: 03-08-2014 End: 11-16-2021 Tobacco use and exposure Smokeless tobacco non-user [facility] Start: 10-11-2022 End: 04-04-2023 History of Social function [facility] Work Phone: Start: 10-11-2022 End: 04-04-2023 Tobacco use panel [facility] Work Phone: Start: 02-14-2014 Adult Depression Screening Assessment 0 [facility] Work Phone: Start: 07-07-2020 Alcoholic beverage intake Current non-drinker of alcohol (finding) [facility] Start: 03-01-2024 Alcohol Comment Socially [facility] Start: 02-28-2015 Sex Female (finding) [facility] NEGATED: Highlighted row [facility] Medical Equipment Procedure Code Equipment Code Equipment Original Text Equipment Identifier Dates [id number], [id number], [id number], [id number], [id number], [id number], [id number], [id number], [id number], [id number] Start: 10-17-2015 End: 08-10-2021 Comment on above: Test blood sugar(s) 2 times daily. Dx: uncontrolled type 2 DM use once daily as di rected Test blood sugar(s)2 times daily. Dx: uncontrolled type 2 DM Goals Date Patient Goal Desired Activity /State Functional Status Date Assessment Result Facility 07-19-2024 Functional Status Independent [facility] 11-16-2023 Functional Status Independent [facility] 11-16-2023 Functional Status ID band on [facility] 05-16-2022 Functional Status Independent [facility] 05-16-2022 Functional Status Standard Safet y ID band on, Allergy Band on, Call device within reach, Bed in low position, Wheels locked, Upper/Half-Length side-rails up, personal items within reach [facility] 03-03-2022 Functional Status ID band on, Call device within reach, Bed in low position, personal items within reach, Bedside Cart Locked, Visitor at bedside [facility] 12-28-2021 Functional Status elevated on pi llows, ice on [facility] 12-28-2021 Functional Status Maintained [facility] 12-18-2021 Functional Status Sensory Deficits None [facility] 09-21-2014 Are you deaf, or do you have serious difficulty hearing No 09/21/2014 2:53 PM Kaylie Martínez LPN No [facility] 09-21-2014 Are you blind, or do you have serious difficulty seeing, even when wearing glasses No 09/21/2014 2:53 PM EDT Kaylie Barnett LPN No [facility] 09-21-2014 Do you have serious difficulty walking or climbing stairs No 09/21/2014 2:53 PM EDT Kaylie Barnett LPN No [facility] 09-21-2014 Do you have difficul ty dressing or bathing No 09/21/2014 2:53 PM EDT Kaylie Barnett LPN No [facility] 09-21-2014 Because of a physica l, mental, or emotional condition, do you have difficulty doing errands alone such as visiting a physician's office or shopping No 09/21/2014 2:53 PM EDT Kaylie Barnett LPN No [facility] Mental Status Date Assessment Result Facility 07-19-2024 Mental Status Oriented x 4 [facility] 11-16-2023 Mental Status Orientation Oriented x 4 [facility] 11-16-2023 Mental Status [facility] 07-04-2023 Cognitive function Voice/Name [facility] Work Phone: 05-16-2022 Mental Status Orientation Oriented x 4 [facility] 05-16-2022 Mental Status [facility] 05-14-2022 Cognitive function Level Of Cons ciousness Awake;Alert;Appropriate;Fol lows Commands [facility] Work Phone: 03-03-2022 Mental Status Oriented x 4 [facility] 12-28-2021 Mental Status Oriented x 4 [facility] 07-03-2021 Cognitive function Level Of Cons ciousness Awake;Alert [facility] Work Phone: 09-21-2014 Because of a physica l, mental, or emotional condition, do you have serious difficulty concentrating, remembering, or making decisions No 09/21/2014 2:53 PM EDT Kaylie Barnett LPN No [facility] Clinical Notes 02-15-2014 to 01-22-2025 Telephone Encounter - Holiday, Helene, MA - 11/24/2024 7:11 PM EDTTelephone Encounter - Helene Bishop MA - 11/24/2024 7:11 PM Catracho Young APRN.CNP - 11/09/2024 5:41 PM EDT Note Date & Type Note Facility 01-22-2025 Note HNO ID: [id number] Author: BERYL YANG APRN.CRNA Service: Anesthesiology Author Type: Nurse Draw Machine Operator Type: Anesthesia Procedure Notes Filed: 01/22/2025 10:43 Note Text: ANESTHESIOLOGY PROCEDURE NOTE Airway General Information Procedure Start Time/Medication Administration: 01/22/2025 10:28 AM Procedure End Time: 01/22/2025 10:32 AM Patient location during procedure: OR Timeout Performed Pre-procedure: timeout performed Consent Obtained: Yes Patient identity confirmed: arm band and patient Staffing HVAC LEAD: Beryl Yang APRN.HVAC LEAD Performed by: DEONNA Indications and Patient Condition Indications for airway management: anesthesia and airway protection Preoxygenated: yes anesthesia circuit Patient position: sniffing Method: asleep Cricoid Pressure: No Manual In-Line Stabilization: No Difficult Mask: No Final Airway Details Final airway type: supraglottic airway Number of attempts at approach: 1 Final Supraglottic Airway: i-gel Size: 4Seal Adequate: yes Failed airway: no Unrecognized esophageal intubation: no Airway not difficult SIGNATURE: Beryl Yang APRN.CRNA PATIENT NAME: Candelaria Grant DATE: January 22, 2025 TIME: 10:42 AM CSN: [id number] [facility] 01-12-2025 Note HNO ID: [id number] Author: GIGI CARRILLO, Service: ? Author Type: Physician Type: Progress Notes Filed: 01/12/2025 11:59 Note Text: Patient presents with: Follow Up HPI: Candelaria Grant is a 39 year old female who presents to the office today for review of health conditions. Concerns today: Elevated blood pressure, admits to a lot of recent stress with trying to get custody of her 's children (3 children). No SI or HI. Wonders if this is affecting her BLOOD PRESSURE Some fatigue symptoms Taking mounjaro 15 mg a week as prescribed. Still working on weight loss process Will be having a paniculectomy surgery upcoming to remove excess abdominal skin as well. Ms. Grant has past history of diabetes. Since our last visit she denies excessive thirst or increased frequency of urination, chest pain or dyspnea , new or unusual visual symptoms, and low sugar/hypoglycemic reactions. Depression- yes, see above- she doesn't want to be on medication for this, situational triggered right now. Follows a diabetic diet some of the time. She is compliant with medication(s) and is tolerating med(s) without any side effects. She reports checking her glucose on a once a day schedule with sugars in the <200 range. Patient's last HgA1C was Hemoglobin A1C (%) Date Value 12/07/2024 5.7 08/27/2024 5.6 09/25/2020 10.1 06/22/2019 9.6 Hemoglobin A1C (POCT) (%) Date Value 10/03/2023 5.5 05/16/2022 9.6 ) Last Ophthalmology exam was within the past 12 months Ms. Grant reports history of hyperlipidemia. Current therapy includes diet and exercise. Denies side effects of muscle weakness or achiness. Her most recent lipid panels are reviewed. Cholesterol, Total (mg/dL) Date Value 08/27/2024 144 09/25/2020 213 HDL Cholesterol (mg/dL) Date Value 08/27/2024 57 09/25/2020 66 LDL Cholesterol, Calculated (mg/dL) Date Value 08/27/2024 70 09/25/2020 108 Triglyceride (mg/dL) Date Value 08/27/2024 88 09/25/2020 194 Ms. Grant indicates a history of hypertension and states that she is feeling well and denies any symptoms referable to elevated blood pressure. Specifically denies headache, chest pain, palpitations, dyspnea, and peripheral edema. Patient denies any side effects of her medication(s) and is compliant with their regimen. Last 3 Encounter BP Readings: Date: BP: 01/07/2025 150/90 12/30/2024 128/84 12/15/2024 150/100 She watches her diet for sodium, low fat and low cholesterol some of the time. She does not check BP's generally. Candelaria gets sporadic irregular exercise. PAST MEDICAL HISTORY Diagnosis Date Abnormal Pap smear of cervix ascus cannot rule out high grade Diabetes mellitus type 2 in obese Gastroesophageal reflux disease without esophagitis Globus sensation Migraine headache Obesity Rectal bleeding 05/14/2017 Added automatically from request for surgery [id number] PAST SURGICAL HISTORY Procedure Laterality Date SECTION HX 03/24/2013 CHOLECYSTECTOMY HX INSERTION OF IUD 2017 Mirena IUD removed 10/20/2020 KYLEENA IUD 10/20/2020 LYSIS OF ADHESIONS 07/04/2023 NEXPLANON INSERTION 05/10/2013 OSTECTOMY CALCANEUS SPUR W/WO PLNTAR FASCIAL RLS Left Dr. Jimenez REPAIR OF NASAL SEPTUM SALPINGECTOMY Bilateral 07/04/2023 Laparoscopic B/L Sal[facility] at [facility]-Dr. Condon SOCIAL HISTORY[1] FAMILY HISTORY Problem Relation Age of Onset No Known Problems Mother Cancer Father pancreatic and renal. Anesthesia Problems Father slow emergence, PONV No Known Problems Brother No Known Problems Son Breast Cancer Maternal Aunt Cervical Cancer Paternal Aunt x2- and one cousin No Known Problems Maternal Grandmother Diabetes Maternal Grandfather Diabetes Paternal Grandfather other (lymphomia) Other maternal cousin other (leukemia) Other cousin Allergies: ALLERGIES Allergen Reactions Macadamia Nut Oil Hives, Swelling, Shortness of Breath Meloxicam Intolerance Headache Current Meds: tirzepatide (MOUNJARO) 15 mg/0.5 mL pen injector Inject 15 mg subcutaneously one time a week. colestipol (COLESTID) 1 gram tablet Take 1 tablet by mouth once daily. For Diarrhea Post Gall Bladder Removal nystatin (MYCOSTATIN) powder Apply 1 application to affected area two times a day as needed (for abdominal fold/groin excoriation/yeast). omeprazole (PRILOSEC) 40 mg capsule Take 1 capsule by mouth once daily. atomoxetine (STRATTERA) 40 mg capsule Take 2 capsules by mouth once daily. It's ok if you want to split this up and take one capsule twice per day instead mffimqftbkTEDYR-xyhyha-bpgnwlijh (BMX 1:1:1) 1:1:1 liqd Take 5 mL by mouth every 4 hours as needed. Swish and spit EPINEPHrine (EPIPEN) 0.3 mg/0.3 mL auto-injector Use for allergic reaction levonorgestrel (KYLEENA) 17.5 mcg/24 hrs (5 yrs) 19.5 mg IUD 1 Each by INTRAUTERINE route one time only. flash glucose sensor (FREESTYLE EMILIA 14 DAY SENS (more content not included)... [facility] 01-03-2025 Note HNO ID: [id number] Author: ARPIT RIVAS MD Service: ? Author Type: Physician Type: Progress Notes Filed: 01/03/2025 12:58 Note Text: Plastic Surgery Note CC: Pre-op/Consent for Surgery HPI: Candelaria is a 39 year old female here today to discuss upcoming surgery. She is scheduled for a panniculectomy on 01/22/2025 at [facility]. Seen and evuated by Anthony Snider NP on 12/03/2024, case submitted to insurance and approved. PACC: 12/31/24, optimally prepared for surgery. Prior labs acceptable for procedure, patient does not require consults for optimization at this time First post op visit on 01/24/25 Weight loss achieved through diet, exercise, and Mounjaro. Highest weight: 300 lbs Current weight: 195 lbs -Weight loss of 100 lbs or more: yes -Patients weight has been stable for 6 months. -The patient does complain of recurrent rashes, intertrigo with dermatitis occuring on the opposed surface of the skin that has not responded to conventional treatment for a period of 3 months. Treatments tried: Cream: nystatin and Powder: nystatin The patient does have a history of infection. Panniculus causes interference with activities of daily living: Yes, showering, bathing and completing job tasks (lifting/moving boxes). History of abdominal hernia No . History of abdominal surgery: , cholecystectomy, and tubal ligation History of Heart Conditions: No History of Lung Conditions: No History of Diabetes: Yes, DM2 Recent A1C (12/07/2024) 5.7 History of HTN: No History of Autoimmune Conditions: No Currently Taking Blood Thinners: No History of Blood Clots: No REVIEW OF SYSTEMS: All negative except for: GENERAL: []weight loss []malaise []fevers HEENT: []frequent or significant headaches []changes in hearing []change in vision []nose bleeds []other nasal problems NECK: []lumps []goiter []pain and significant neck swelling RESPIRATORY: []cough []hemoptysis []wheezing []COPD []dyspnea []shortness of breath CARDIOVASCULAR: []chest pain []leg swelling []hypertension []CHF []palpitations GI: []nausea []vomiting []diarrhea MUSCULOSKELETAL: [] joint pain or swelling [] back pain []muscle pain SKIN: [] skin lesions []rash []itching PSYCH: []sleep disturbance []mood disorder []recent psychosocial stressors HEMATOLOGY/LYMPHOLOGY: []prolonged bleeding []bruising easily []swollen nodes ENDOCRINE: []cold intolerance []heat intolerance []polyuria []polydipsia []goiter [] Diabetes Nicotine Use: No Objective: PAST MEDICAL HISTORY Diagnosis Date Abnormal Pap smear of cervix ascus cannot rule out high grade Diabetes mellitus type 2 in obese Gastroesophageal reflux disease without esophagitis Globus sensation Migraine headache Obesity Rectal bleeding 05/14/2017 Added automatically from request for surgery [id number] PAST SURGICAL HISTORY Procedure Laterality Date SECTION HX 03/24/2013 CHOLECYSTECTOMY HX INSERTION OF IUD 2017 Mirena IUD removed 10/20/2020 KYLEENA IUD 10/20/2020 LYSIS OF ADHESIONS 07/04/2023 NEXPLANON INSERTION 05/10/2013 OSTECTOMY CALCANEUS SPUR W/WO PLNTAR FASCIAL RLS Left Dr. Jimenez REPAIR OF NASAL SEPTUM SALPINGECTOMY Bilateral 07/04/2023 Laparoscopic B/L Salpingectomy at [facility]-Dr. Condon Current Outpatient Medications Medication Sig Dispense Refill colestipol (COLESTID) 1 gram tablet Take 1 tablet by mouth once daily. For Diarrhea Post Gall Bladder Removal 90 tablet 1 nystatin (MYCOSTATIN) powder Apply 1 application to affected area two times a day as needed (for abdominal fold/groin excoriation/yeast). 15 g 5 tirzepatide (MOUNJARO) 12.5 mg/0.5 mL pen injector Inject 12.5 mg subcutaneously one time a week. 2 mL 2 omeprazole (PRILOSEC) 40 mg capsule Take 1 capsule by mouth once daily. 30 capsule 2 atomoxetine (STRATTERA) 40 mg capsule Take 2 capsules by mouth once daily. It's ok if you want to split this up and take one capsule twice per day instead 180 capsule 0 gensiwwujaSKASL-xuynfa-nqekhnaoa (BMX 1:1:1) 1:1:1 liqd Take 5 mL by mouth every 4 hours as needed. Swish and spit 400 mL 0 EPINEPHrine (EPIPEN) 0.3 mg/0.3 mL auto-injector Use for allergic reaction 2 Each 1 levonorgestrel (KYLEENA) 17.5 mcg/24 hrs (5 yrs) 19.5 mg IUD 1 Each by INTRAUTERINE route one time only. flash glucose sensor (FREESTYLE EMILIA 14 DAY SENSOR) kit Apply and use as directed. Dx: Uncontrolled type 2 diabetes without insulin. 1 Kit 3 flash glucose scanning reader (FREESTYLE EMILIA 3 READER) 1 Each once daily. 1 Each 5 Lancets lancets Test blood sugar(s)2 times daily. Dx: uncontrolled type 2 DM 100 Each 11 insulin needles, DISPOSABLE, (BD INSULIN PEN NEEDLE UF) 31 gauge x 5/16" use once daily as directed 100 Each 1 blood sugar diagnostic (BLOOD GLUCOSE TEST) test strip Test blood sugar(s) 2 times daily. Dx: uncontrolled type 2 DM 50 Strip 11 No current facility-administered medications for this visit. ALLERGIES Allergen R (more content not included)... [facility] 12-15-2024 Note HNO ID: [id number] Author: MOOK MCGUIRE APRN.GUM COOK Service: ? Author Type: Nurse Practitioner Type: Progress Notes Filed: 12/15/2024 19:02 Note Text: This is a 39 year old female who presents today with: The patient is a 39-year-old female with diabetes mellitus, presenting for evaluation of persistent sinus congestion and facial pain despite prior antibiotic therapy. HISTORY OF PRESENT ILLNESS: Sinus Congestion: - Persistent sinus congestion - Completed a course of antibiotics as prescribed. - Using Mucinex and Robitussin for symptom relief. - Reports sinus pain localized to the maxillary sinus - cough is intermittent but persistent and harsh at times, has coughed so hard she had blood tinged sputum - Nasal discharge is clear, sometimes greenish-yellow; cough produces light yellow sputum. - Denies fevers; reports feeling exhausted. - History of sinus surgery; followed by ENT. Dysuria: - Developed dysuria after completing antibiotics. - Took Diflucan for presumed yeast infection - Reports urgency and bladder spasm sensations with some incontinence - Denies hematuria, sores, or excoriation, or burning (did previously but resolved) PAST MEDICAL HISTORY: PAST MEDICAL HISTORY Diagnosis Date Abnormal Pap smear of cervix ascus cannot rule out high grade Diabetes mellitus type 2 in obese Gastroesophageal reflux disease without esophagitis Globus sensation Migraine headache Obesity PAST SURGICAL HISTORY Procedure Laterality Date SECTION HX 03/24/2013 CHOLECYSTECTOMY HX INSERTION OF IUD 2017 Mirena IUD removed 10/20/2020 KYLEENA IUD 10/20/2020 LYSIS OF ADHESIONS 07/04/2023 NEXPLANON INSERTION 05/10/2013 OSTECTOMY CALCANEUS SPUR W/WO PLNTAR FASCIAL RLS Left Dr. Jimenez REPAIR OF NASAL SEPTUM SALPINGECTOMY Bilateral 07/04/2023 Laparoscopic B/L Salpingectomy at [facility]-Dr. Condon ALLERGIES Macadamia Nut Oil and Meloxicam MEDICATIONS Current Outpatient Medications Medication Sig fluconazole (DIFLUCAN) 150 mg tablet Take 1 tablet by mouth as directed. May repeat in 3 days if symptomatic nystatin (MYCOSTATIN) powder Apply 1 application to affected area two times a day as needed (for abdominal fold/groin excoriation/yeast). tirzepatide (MOUNJARO) 12.5 mg/0.5 mL pen injector Inject 12.5 mg subcutaneously one time a week. omeprazole (PRILOSEC) 40 mg capsule Take 1 capsule by mouth once daily. atomoxetine (STRATTERA) 40 mg capsule Take 2 capsules by mouth once daily. It's ok if you want to split this up and take one capsule twice per day instead colestipol (COLESTID) 1 gram tablet Take 1 tablet by mouth once daily. For Diarrhea Post Gall Bladder Removal zszsjojwhjTFOGK-ngunbu-hmmmwsysu (BMX 1:1:1) 1:1:1 liqd Take 5 mL by mouth every 4 hours as needed. Swish and spit EPINEPHrine (EPIPEN) 0.3 mg/0.3 mL auto-injector Use for allergic reaction levonorgestrel (KYLEENA) 17.5 mcg/24 hrs (5 yrs) 19.5 mg IUD 1 Each by INTRAUTERINE route one time only. flash glucose sensor (FREESTYLE EMILIA 14 DAY SENSOR) kit Apply and use as directed. Dx: Uncontrolled type 2 diabetes without insulin. flash glucose scanning reader (HealthQxSTYLE EMILIA 3 READER) 1 Each once daily. Lancets lancets Test blood sugar(s)2 times daily. Dx: uncontrolled type 2 DM insulin needles, DISPOSABLE, (BD INSULIN PEN NEEDLE UF) 31 gauge x 5/16" use once daily as directed blood sugar diagnostic (BLOOD GLUCOSE TEST) test strip Test blood sugar(s) 2 times daily. Dx: uncontrolled type 2 DM phenazopyridine (PYRIDIUM) 100 mg tablet Take 2 tablets by mouth three times a day for 3 days. For bladder spasms No current facility-administered medications for this visit. FAMILY HISTORY Problem Relation Age of Onset No Known Problems Mother Cancer Father pancreatic and renal. Anesthesia Problems Father slow emergence, PONV No Known Problems Brother No Known Problems Son Breast Cancer Maternal Aunt Cervical Cancer Paternal Aunt x2- and one cousin No Known Problems Maternal Grandmother Diabetes Maternal Grandfather Diabetes Paternal Grandfather other (lymphomia) Other maternal cousin other (leukemia) Other cousin SOCIAL HISTORY[1] REVIEW OF SYSTEMS Constitutional: (+) fatigue, (+) malaise, (-) fever Ears/Nose/Mouth/Throat: (+) sinus pain, (+) nasal congestion, (+) yellow nasal discharge Cardiovascular: (+) chest pain radiating to back Respiratory: (+) cough, (+) hemoptysis, (+) wheezing, (+) yellow sputum Genitourinary: (+) urinary urgency, (+) bladder spasms, (-) dysuria, (-) genital sores Musculoskeletal: (+) upper back pain See HPI EXAM: BP 150/100 (BP Site: Left Arm, BP Position: Sitting, BP Cuff Size: Large Adult) Pulse 83 Temp 36.9 ?C (98.5 ?F) Resp 16 Wt 88.5 kg (195 lb 3.2 oz) LMP 05/25/2024 (Exact Date) SpO2 100% BMI 29.25 kg/m? PHYSICAL EXAM: General Appearance: Well appearing, alert, in no acute distress, well-hydrated, well (more content not included)... [facility] 12-03-2024 Note HNO ID: [id number] Author: RAFAELA CACERES MA Service: ? Author Type: Director Product Management Type: Progress Notes Filed: 12/03/2024 11:15 Note Text: DATE OF PHOTOS: 12/03/2024 Body Part: Abdomen Rafaela Caceres MA December 03, 2024 11:15 AM [facility] 12-03-2024 Note HNO ID: [id number] Author: ALEJANDRO SNIDER APRN.GUM COOK Service: ? Author Type: Nurse Practitioner Type: Progress Notes Filed: 12/03/2024 17:13 Note Text: Plastic Surgery Note CC: Consult for Panniculectomy HPI: Candelaria is a 39 year old female here today to discuss excess abdominal skin and fat after massive weight loss. Weight loss achieved through diet, exercise, and Mounjaro. Date of bariatric surgery (more than 18 months): na Highest weight: 300 Current weight: 189 Weight loss of 100 lbs or more: yes Patients weight has been stable for 6 months. The patient does complain of recurrent rashes, intertrigo with dermatitis occuring on the opposed surface of the skin that has not responded to conventional treatment for a period of 3 months. Treatments tried: Cream: nystatin and Powder: nystatin The patient does have a history of infection. Panniculus causes interference with activities of daily living: Yes, showering, bathing and completing job tasks (lifting/moving boxes) Mixed feelings about self-esteem post-weight loss; Candelaria feels discouraged by excess skin Trouble with clothes fitting properly: Yes, cannot find clothing hat is flattering with excess skin History of abdominal hernia No . History of abdominal surgery: , cholecystectomy, and tubal ligation History of Heart Conditions: no History of Lung Conditions: no History of Diabetes: DM2 Recent A1C: 5.6 History of HTN: no History of Autoimmune Conditions: no Currently Taking Blood Thinners: no History of Blood Clots: no Current BMI: Body mass index is 28.41 kg/m?. REVIEW OF SYSTEMS REVIEW OF SYSTEMS PAIN ASSESSMENT: Negative for pain, history of chronic pain, or current treatment for a chronic pain condition. GENERAL: No weight loss, malaise or fevers RESPIRATORY: Negative for cough, hemoptysis, wheezing, COPD, dyspnea or shortness of breath CARDIOVASCULAR: Negative for chest pain, leg swelling, hypertension, CHF or palpitations SKIN: Negative for lesions, rash, and itching Objective: Ht 174 cm (5' 8.5") Wt 86 kg (189 lb 9.5 oz) LMP 05/25/2024 (Exact Date) BMI 28.41 kg/m? PAST MEDICAL HISTORY Diagnosis Date Abnormal Pap smear of cervix ascus cannot rule out high grade Diabetes mellitus type 2 in obese Gastroesophageal reflux disease without esophagitis Globus sensation Migraine headache Obesity PAST SURGICAL HISTORY Procedure Laterality Date SECTION HX 03/24/2013 CHOLECYSTECTOMY HX INSERTION OF IUD 2017 Mirena IUD removed 10/20/2020 KYLEENA IUD 10/20/2020 LYSIS OF ADHESIONS 07/04/2023 NEXPLANON INSERTION 05/10/2013 OSTECTOMY CALCANEUS SPUR W/WO PLNTAR FASCIAL RLS Left Dr. Jimenez REPAIR OF NASAL SEPTUM SALPINGECTOMY Bilateral 07/04/2023 Laparoscopic B/L Salpingectomy at [facility]-Dr. Condon Current Outpatient Medications Medication Sig Dispense Refill amoxicillin-clavulanate potassium (AUGMENTIN) 875-125 mg per tablet Take 1 tablet by mouth two times a day for 5 days. 10 tablet 0 fluconazole (DIFLUCAN) 150 mg tablet Take 1 tablet by mouth as directed. May repeat in 3 days if symptomatic 2 tablet 0 nystatin (MYCOSTATIN) powder Apply 1 application to affected area two times a day as needed (for abdominal fold/groin excoriation/yeast). 15 g 5 tirzepatide (MOUNJARO) 12.5 mg/0.5 mL pen injector Inject 12.5 mg subcutaneously one time a week. 2 mL 2 nystatin (MYCOSTATIN) cream Apply to affected area two times a day for 14 days. 30 g 0 omeprazole (PRILOSEC) 40 mg capsule Take 1 capsule by mouth once daily. 30 capsule 2 atomoxetine (STRATTERA) 40 mg capsule Take 2 capsules by mouth once daily. It's ok if you want to split this up and take one capsule twice per day instead 180 capsule 0 colestipol (COLESTID) 1 gram tablet Take 1 tablet by mouth once daily. For Diarrhea Post Gall Bladder Removal 90 tablet 1 eqxldcsktkQFFXR-uarfhn-mpjchgsgx (BMX 1:1:1) 1:1:1 liqd Take 5 mL by mouth every 4 hours as needed. Swish and spit 400 mL 0 EPINEPHrine (EPIPEN) 0.3 mg/0.3 mL auto-injector Use for allergic reaction 2 Each 1 levonorgestrel (KYLEENA) 17.5 mcg/24 hrs (5 yrs) 19.5 mg IUD 1 Each by INTRAUTERINE route one time only. flash glucose sensor (FREESTYLE EMILIA 14 DAY SENSOR) kit Apply and use as directed. Dx: Uncontrolled type 2 diabetes without insulin. 1 Kit 3 flash glucose scanning reader (FREESTYLE EMILIA 3 READER) 1 Each once daily. 1 Each 5 Lancets lancets Test blood sugar(s)2 times daily. Dx: uncontrolled type 2 DM 100 Each 11 insulin needles, DISPOSABLE, (BD INSULIN PEN NEEDLE UF) 31 gauge x 5/16" use once daily as directed 100 Each 1 blood sugar diagnostic (BLOOD GLUCOSE TEST) test strip Test blood sugar(s) 2 times daily. Dx: uncontrolled type 2 DM 50 Strip 11 No current facility-administered medications for this visit. ALLERGIES Allergen Reactions Macadamia Nut Oil Hives, Swelling, Shortness of Breath Meloxicam Intolerance (more content not included)... [facility] 12-03-2024 Note HNO ID: [id number] Author: MOOK MCGUIRE APRN.GUM COOK Service: ? Author Type: Nurse Practitioner Type: Progress Notes Filed: 12/03/2024 09:22 Note Text: This is a 39 year old female who presents today with: 3 month follow up August assessment and plan: ASSESSMENT/PLAN 1. Type 2 diabetes mellitus with other specified complication, with long-term current use of insulin (HCC) (E11.69) - Managed with tirzepatide 12.5 mg weekly, continue same dose - Last HbA1c checked in October; ordered repeat HbA1c. - No current signs or symptoms of hypoglycemia or hyperglycemia. - Not taking metformin due to adverse effects. - Advised to monitor dietary intake, specifically reducing sugars and carbohydrates to prevent "sugar dump" and exacerbation of gastrointestinal symptoms. - Scheduled follow-up in 3 months. 2. Gastroesophageal reflux disease without esophagitis (K21.9) - Ongoing gastrointestinal symptoms despite holding tirzepatide for 7 days. - Currently taking pantoprazole; not taking sucralfate as someone told her not to take it - Order for pantoprazole was bid and she's only taking once, encouraged full 3 months of bid PPI -schedule follow up with zulma Garvin APRN GI, if needed HISTORY OF PRESENT ILLNESS: Cold Symptoms: - Candelariasharita Grant has had cold symptoms for 2 weeks. - Progressed to sinus pressure and chest congestion on Friday. - Productive cough with unknown sputum color. - Rhinorrhea with yellowish discharge; occasional clear discharge. - Noted oily yellowish nasal discharge when leaning forward. - Denies fevers and myalgias. - Deja is also experiencing similar symptoms. Ear Pain: - Candelaria reports ear pain. - Recent exposure to powder coat paint at work, causing eye irritation. Diabetes Mellitus: - Recent fluctuations in Candelaria's blood glucose levels, ranging from 60s to 200s. - Recent yeast infection and "yeasty crap" in the umbilicus. - Recent urgent care visit for UTI symptoms; negative for glucose in urine but + for marcelo - Last A1c was 5.6%, due for recheck GERD: - Prescribed omeprazole but Candelaria has not been taking it consistently. - Denies recent GERD symptoms. PAST MEDICAL HISTORY: PAST MEDICAL HISTORY Diagnosis Date Abnormal Pap smear of cervix ascus cannot rule out high grade Diabetes mellitus type 2 in obese Gastroesophageal reflux disease without esophagitis Globus sensation Migraine headache Obesity PAST SURGICAL HISTORY Procedure Laterality Date SECTION HX 03/24/2013 CHOLECYSTECTOMY HX INSERTION OF IUD 2017 Mirena IUD removed 10/20/2020 KYLEENA IUD 10/20/2020 LYSIS OF ADHESIONS 07/04/2023 NEXPLANON INSERTION 05/10/2013 OSTECTOMY CALCANEUS SPUR W/WO PLNTAR FASCIAL RLS Left Dr. Jimenez REPAIR OF NASAL SEPTUM SALPINGECTOMY Bilateral 07/04/2023 Laparoscopic B/L Salpingectomy at [facility]-Dr. Condon ALLERGIES Macadamia Nut Oil and Meloxicam MEDICATIONS Current Outpatient Medications Medication Sig tirzepatide (MOUNJARO) 12.5 mg/0.5 mL pen injector Inject 12.5 mg subcutaneously one time a week. nystatin (MYCOSTATIN) cream Apply to affected area two times a day for 14 days. omeprazole (PRILOSEC) 40 mg capsule Take 1 capsule by mouth once daily. atomoxetine (STRATTERA) 40 mg capsule Take 2 capsules by mouth once daily. It's ok if you want to split this up and take one capsule twice per day instead colestipol (COLESTID) 1 gram tablet Take 1 tablet by mouth once daily. For Diarrhea Post Gall Bladder Removal pyoksujdudBDFFC-hluedp-elonuntfo (BMX 1:1:1) 1:1:1 liqd Take 5 mL by mouth every 4 hours as needed. Swish and spit EPINEPHrine (EPIPEN) 0.3 mg/0.3 mL auto-injector Use for allergic reaction levonorgestrel (KYLEENA) 17.5 mcg/24 hrs (5 yrs) 19.5 mg IUD 1 Each by INTRAUTERINE route one time only. flash glucose sensor (FREESTYLE EMILIA 14 DAY SENSOR) kit Apply and use as directed. Dx: Uncontrolled type 2 diabetes without insulin. flash glucose scanning reader (FREESTYLE EMILIA 3 READER) 1 Each once daily. Lancets lancets Test blood sugar(s)2 times daily. Dx: uncontrolled type 2 DM insulin needles, DISPOSABLE, (BD INSULIN PEN NEEDLE UF) 31 gauge x 5/16" use once daily as directed blood sugar diagnostic (BLOOD GLUCOSE TEST) test strip Test blood sugar(s) 2 times daily. Dx: uncontrolled type 2 DM amoxicillin-clavulanate potassium (AUGMENTIN) 875-125 mg per tablet Take 1 tablet by mouth two times a day for 5 days. fluconazole (DIFLUCAN) 150 mg tablet Take 1 tablet by mouth as directed. May repeat in 3 days if symptomatic nystatin (MYCOSTATIN) powder Apply 1 application to affected area two times a day as needed (for abdominal fold/groin excoriation/yeast). No current facility-administered medications for this visit. FAMILY HISTORY Problem Relation Age of Onset No Known Problems Mother Cancer Father pancreatic and renal. Anesthesia Problems Father slow emergence, PONV (more content not included)... [facility] 11-24-2024 Telephone encounter Note Prescription Refill Information The patient has been identified by name and date of : Yes Caregiver verified no other encounters exist for this prescription request: Yes Caregiver confirmed with patient/requestor that no other refills are due, in the near future, with this provider at this time: Yes The last office visit in the department: 10/22/2024 Does the patient have a future office visit with this provider/department: Yes Requested Prescriptions Pending Prescriptions Disp Refills tirzepatide (MOUNJARO) 12.5 mg/0.5 mL pen injector 2 mL 2 Sig: Inject 12.5 mg subcutaneously one time a week. Helene Bishop MA November 24, 2024 7:11 PM [facility] 11-24-2024 Miscellaneous Notes Prescription Refill Information The patient has been identified by name and date of : Yes Caregiver verified no other encounters exist for this prescription request: Yes Caregiver confirmed with patient/requestor that no other refills are due, in the near future, with this provider at this time: Yes The last office visit in the department: 10/22/2024 Does the patient have a future office visit with this provider/department: Yes Requested Prescriptions Pending Prescriptions Disp Refills tirzepatide (MOUNJARO) 12.5 mg/0.5 mL pen injector 2 mL 2 Sig: Inject 12.5 mg subcutaneously one time a week. Helene Bishop MA November 24, 2024 7:11 PM documented in this encounter [facility] 11-09-2024 Note HNO ID: [id number] Author: CATRACHO WAN APRN.GUM COOK Service: ? Author Type: Nurse Practitioner Type: Progress Notes Filed: 11/09/2024 19:03 Note Text: [facility]ULMA Piyush Grant is a 39 year old female presenting with thick, white, clumpy vaginal discharge x 1 week. Associated symptoms include left sided flank pain, urinary urgency, abdominal pain, vaginal itching, and white belly button discharge. Pertinent negatives include no hematuria, fever, chills, fatigue, no pelvic pain, and difficulty urinating. Patient presents with: Vaginal Problem: ? yeast infection x 1 day, discharge from bellybutton x 1 week Vaginal Problem This is a new problem. The current episode started in the past 7 days. The problem occurs constantly. The problem has been unchanged. Associated symptoms include abdominal pain (RUQ and RLQ), nausea (x1 episode) and vomiting. Pertinent negatives include no chest pain, chills, fatigue or fever. She has tried nothing for the symptoms. Review of Systems Constitutional: Negative for chills, fatigue and fever. Cardiovascular: Negative for chest pain. Gastrointestinal: Positive for abdominal distention, abdominal pain (RUQ and RLQ), nausea (x1 episode) and vomiting. Negative for constipation and diarrhea. Genitourinary: Positive for flank pain (Left side), urgency, vaginal discharge and vaginal pain (10/10 when urinating). Negative for decreased urine volume, difficulty urinating, dysuria, enuresis, frequency, hematuria, pelvic pain and vaginal bleeding. Vaginal itching Objective BP 132/80 Pulse 68 Temp 36.4 ?C (97.6 ?F) Resp 16 Wt 88.5 kg (195 lb 1.7 oz) LMP 05/25/2024 (Exact Date) SpO2 100% BMI 28.81 kg/m? Physical Exam Vitals and nursing note reviewed. Constitutional: General: She is awake. She is not in acute distress. Appearance: Normal appearance. She is not ill-appearing or toxic-appearing. HENT: Head: Normocephalic. Cardiovascular: Rate and Rhythm: Normal rate and regular rhythm. Heart sounds: Normal heart sounds, S1 normal and S2 normal. Pulmonary: Effort: Pulmonary effort is normal. Breath sounds: Normal breath sounds and air entry. Abdominal: General: Abdomen is flat. Bowel sounds are normal. There is no distension. Palpations: Abdomen is soft. There is no mass. Tenderness: There is abdominal tenderness in the left upper quadrant and left lower quadrant. There is left CVA tenderness. There is no right CVA tenderness, guarding or rebound. Hernia: No hernia is present. Genitourinary: Comments: Patient self swabbed Neurological: Mental Status: She is alert and oriented to person, place, and time. Psychiatric: Mood and Affect: Mood normal. {ASSESSMENT/PLAN: 1. Burning with urination - ICD9: 788.1, ICD10: R30.0 (primary diagnosis) acute - Send urine for culture - Patient education for prevention given - UA DIP, URINE (POC) URINE POC GLUCOSE UA (POCT) Negative 11/09/2024 BILIRUBIN UA (POCT) Small 11/09/2024 KETONE UA (POCT) Negative 11/09/2024 SPECIFIC GRAVITY UA (POCT) 1.025 11/09/2024 HEMOGLOBIN/BLOOD UA (POCT) Negative 11/09/2024 PH UA (POCT) 6.0 11/09/2024 PROTEIN UA (POCT) 30 11/09/2024 UROBILINOGEN UA (POCT) 1.0 11/09/2024 NITRITE UA (POCT) Negative 11/09/2024 LEUKOCYTES UA (POCT) Negative 11/09/2024 COLOR UA (POCT) Dark yellow 11/09/2024 CLARITY UA (POCT) Clear 11/09/2024 - BACTERIAL CULTURE, URINE 2. Vaginal itching - ICD9: 698.1, ICD10: N89.8 - MARCELO/TRICHOMONAS NAAT - BACTERIAL VAGINOSIS NAAT 3. Acute left flank pain - ICD9: 789.09, 338.19, ICD10: R10.9 - Work up with ultrasounds ordered - US KIDNEY/BLADDER Ultrasound is set up at [place] 10 AM. If patient has any significant findings that would require an ER visit please send to the emergency room. At this time patient is not in significant amount of pain at the time. So if she does have a kidney stone that is not causing significant issues she can follow-up with primary care. Disposition The patient was discharged. Discussed medication dosage, usage, goals of therapy, and side effects. Return to [facility], call primary care provider, or go to the emergency department for problems, worsening, increased or new symptoms, etc. Red flag symptoms discussed with the patient and when to go to ER. Patient verbalized understanding to plan of care. Milton Ramirez BEHAVIOR THERAPIST student TEACHING PROVIDER (Physician/PA/MUCK BOSS) NOTE OF PERSONAL INVOLVEMENT IN CARE: I have personally seen and examined the patient and performed the medical decision-making components. I have reviewed the Advanced Practice Registered Nurse (MUCK BOSS) Student's documentation and verified the findings in the note as written. Any additions or changes are noted in bold/italics. Signature: Catracho Wan Date: 11/09/2024 Time: 7:03 PM [facility] 11-09-2024 History of Presen t illness Narrative [facility] Villagomezsharita Grant is a 39 year old female presenting with thick, white, clumpy vaginal discharge x 1 week. Associated symptoms include left sided flank pain, urinary urgency, abdominal pain, vaginal itching, and white belly button discharge. Pertinent negatives include no hematuria, fever, chills, fatigue, no pelvic pain, and difficulty urinating. Patient presents with: Vaginal Problem: ? yeast infection x 1 day, discharge from bellybutton x 1 week Vaginal Problem This is a new problem. The current episode started in the past 7 days. The problem occurs constantly. The problem has been unchanged. Associated symptoms include abdominal pain (RUQ and RLQ), nausea (x1 episode) and vomiting. Pertinent negatives include no chest pain, chills, fatigue or fever. She has tried nothing for the symptoms. Review of Systems Constitutional: Negative for chills, fatigue and fever. Cardiovascular: Negative for chest pain. Gastrointestinal: Positive for abdominal distention, abdominal pain (RUQ and RLQ), nausea (x1 episode) and vomiting. Negative for constipation and diarrhea. Genitourinary: Positive for flank pain (Left side), urgency, vaginal discharge and vaginal pain (10/10 when urinating). Negative for decreased urine volume, difficulty urinating, dysuria, enuresis, frequency, hematuria, pelvic pain and vaginal bleeding. Vaginal itching Objective BP 132/80 Pulse 68 Temp 36.4 C (97.6 F) Resp 16 Wt 88.5 kg (195 lb 1.7 oz) LMP 05/25/2024 (Exact Date) SpO2 100% BMI 28.81 kg/m Physical Exam Vitals and nursing note reviewed. Constitutional: General: She is awake. She is not in acute distress. Appearance: Normal appearance. She is not ill-appearing or toxic-appearing. HENT: Head: Normocephalic. Cardiovascular: Rate and Rhythm: Normal rate and regular rhythm. Heart sounds: Normal heart sounds, S1 normal and S2 normal. Pulmonary: Effort: Pulmonary effort is normal. Breath sounds: Normal breath sounds and air entry. Abdominal: General: Abdomen is flat. Bowel sounds are normal. There is no distension. Palpations: Abdomen is soft. There is no mass. Tenderness: There is abdominal tenderness in the left upper quadrant and left lower quadrant. There is left CVA tenderness. There is no right CVA tenderness, guarding or rebound. Hernia: No hernia is present. Genitourinary: Comments: Patient self swabbed Neurological: Mental Status: She is alert and oriented to person, place, and time. Psychiatric: Mood and Affect: Mood normal. {ASSESSMENT/PLAN: 1. Burning with urination - ICD9: 788.1, ICD10: R30.0 (primary diagnosis) acute - Send urine for culture - Patient education for prevention given - UA DIP, URINE (POC) URINE POC GLUCOSE UA (POCT) Negative 11/09/2024 BILIRUBIN UA (POCT) Small 11/09/2024 KETONE UA (POCT) Negative 11/09/2024 SPECIFIC GRAVITY UA (POCT) 1.025 11/09/2024 HEMOGLOBIN/BLOOD UA (POCT) Negative 11/09/2024 PH UA (POCT) 6.0 11/09/2024 PROTEIN UA (POCT) 30 11/09/2024 UROBILINOGEN UA (POCT) 1.0 11/09/2024 NITRITE UA (POCT) Negative 11/09/2024 LEUKOCYTES UA (POCT) Negative 11/09/2024 COLOR UA (POCT) Dark yellow 11/09/2024 CLARITY UA (POCT) Clear 11/09/2024 - BACTERIAL CULTURE, URINE 2. Vaginal itching - ICD9: 698.1, ICD10: N89.8 - MARCELO/TRICHOMONAS NAAT - BACTERIAL VAGINOSIS NAAT 3. Acute left flank pain - ICD9: 789.09, 338.19, ICD10: R10.9 - Work up with ultrasounds ordered - US KIDNEY/BLADDER Ultrasound is set up at [place] 10 AM. If patient has any significant findings that would require an ER visit please send to the emergency room. At this time patient is not in significant amount of pain at the time. So if she does have a kidney stone that is not causing significant issues she can follow-up with primary care. Disposition The patient was discharged. Discussed medication dosage, usage, goals of therapy, and side effects. Return to [facility], call primary care provider, or go to the emergency department for problems, worsening, increased or new symptoms, etc. Red flag symptoms discussed with the patient and when to go to ER. Patient verbalized understanding to plan of care. Milton Ramirez BEHAVIOR THERAPIST student TEACHING PROVIDER (Physician/PA/MUCK BOSS) NOTE OF PERSONAL INVOLVEMENT IN CARE: I have personally seen and examined the patient and performed the medical decision-making components. I have reviewed the Advanced Practice Registered Nurse (MUCK BOSS) Student's documentation and verified the findings in the note as written. Any additions or changes are noted in bold/italics. Signature: Catracho Wan Date: 11/09/2024 Time: 7:03 PM documented in this encounter [facility] 10-22-2024 Note HNO ID: [id number] Author: MOOK MCGUIRE APRN.KEEGAN Service: ? Author Type: Nurse Practitioner Type: Progress Notes Filed: 10/22/2024 13:38 Note Text: This is a 39 year old female who presents today with: Candelaria Marsh Juanita is a 39-year-old female with a history of ADHD, GERD, and obesity, presenting requesting to be put back on adipex HISTORY OF PRESENT ILLNESS: Weight Management: - Recent weight increase to 196 lbs, followed by a decrease -Patient feels she is eating everything and gaining weight, but later said she has no appetite and GI upset often - BMI is 28- she does fluctuate significantly but has done well overall on weight loss journey - Currently on a high dose of tirzepatide. - has been less active and not working out recently, stating fiances work schedule has made them fall off track - denies doing any type of diet GERD: - Exacerbation of GERD symptoms, including nausea and burning pain in epigastric area - Symptoms occur randomly, often at work. - Denies recent follow-up with GI specialist, just the EGD she had in March - Currently taking pantoprazole BID - Avoids eating late at night and remains elevated after meals ADHD: - Currently taking Strattera 40 mg once daily; has not increased to 80 mg as prescribed. - Reports persistent difficulties with focus and memory, denies any other side effects (fatigue and stomach issues have been chronic, not new since starting meds) Edema: - Reports swelling in the leg, particularly at work, and mostly LLE - Swelling is not pitting and resolves after elevation. - hx of torn meniscus LLE, No history of surgery; previously underwent physical therapy. - Recent increase in leg discomfort due to frequent ladder use at work. - doesn't feel xray necessary as it will only show bone structures and not meniscus/ligaments Fatigue: - Reports feeling exhausted, attributing it to lack of sleep and caring for a new puppy. - Denies getting adequate sleep. - took nyquil last night and extra tired today Most Recent 10/24/21 - 10/22/24 05/06/24 17:37 05/25/24 17:56 07/06/24 13:08 07/20/24 08:27 08/13/24 07:13 08/27/24 09:02 10/22/24 12:20 Weight 190 lb (86.2 kg) 10/22/24 12:20 196 lb 3.4 oz (89 kg) 194 lb 0.1 oz (88 kg) 187 lb 6.3 oz (85 kg) 182 lb 12.8 oz (82.9 kg) 186 lb (84.4 kg) 187 lb 3.2 oz (84.9 kg) 190 lb (86.2 kg) Elevated BP without diagnosis of HTN Most Recent 10/24/21 - 10/22/24 05/06/24 17:37 05/25/24 17:56 07/06/24 13:08 07/20/24 08:27 08/13/24 07:13 08/27/24 09:02 10/22/24 12:20 BP 146/66 10/22/24 12:20 159/96 155/96 136/87 115/76 136/86 138/78 146/66 PAST MEDICAL HISTORY: PAST MEDICAL HISTORY Diagnosis Date Abnormal Pap smear of cervix ascus cannot rule out high grade Diabetes mellitus type 2 in obese Gastroesophageal reflux disease without esophagitis Globus sensation Migraine headache Obesity PAST SURGICAL HISTORY Procedure Laterality Date SECTION HX 03/24/2013 CHOLECYSTECTOMY HX INSERTION OF IUD 2017 Mirena IUD removed 10/20/2020 KYLEENA IUD 10/20/2020 LYSIS OF ADHESIONS 07/04/2023 NEXPLANON INSERTION 05/10/2013 OSTECTOMY CALCANEUS SPUR W/WO PLNTAR FASCIAL RLS Left Dr. Jimenez REPAIR OF NASAL SEPTUM SALPINGECTOMY Bilateral 07/04/2023 Laparoscopic B/L Salpingectomy at [facility]-Dr. Condon ALLERGIES Macadamia Nut Oil and Meloxicam MEDICATIONS Current Outpatient Medications Medication Sig colestipol (COLESTID) 1 gram tablet Take 1 tablet by mouth once daily. For Diarrhea Post Gall Bladder Removal tirzepatide (MOUNJARO) 12.5 mg/0.5 mL pen injector Inject 12.5 mg subcutaneously one time a week. Patient should start on September 26, 2024. pwnihidsfjAPEUB-hapdtt-ehsdxprbu (BMX 1:1:1) 1:1:1 liqd Take 5 mL by mouth every 4 hours as needed. Swish and spit EPINEPHrine (EPIPEN) 0.3 mg/0.3 mL auto-injector Use for allergic reaction levonorgestrel (KYLEENA) 17.5 mcg/24 hrs (5 yrs) 19.5 mg IUD 1 Each by INTRAUTERINE route one time only. flash glucose sensor (FREESTYLE EMILIA 14 DAY SENSOR) kit Apply and use as directed. Dx: Uncontrolled type 2 diabetes without insulin. flash glucose scanning reader (FREESTYLE EMILIA 3 READER) 1 Each once daily. Lancets lancets Test blood sugar(s)2 times daily. Dx: uncontrolled type 2 DM insulin needles, DISPOSABLE, (BD INSULIN PEN NEEDLE UF) 31 gauge x 5/16" use once daily as directed blood sugar diagnostic (BLOOD GLUCOSE TEST) test strip Test blood sugar(s) 2 times daily. Dx: uncontrolled type 2 DM omeprazole (PRILOSEC) 40 mg capsule Take 1 capsule by mouth once daily. atomoxetine (STRATTERA) 40 mg capsule Take 2 capsules by mouth once daily. It's ok if you want to split this up and take one capsule twice per day instead Phenyleph-Shark Qld-Idct-Jml (HEMORRHOIDAL) 0.25-3-12 % crea by RECTAL route twice daily. No current facility-administered medications for this visit. FAMILY HISTORY Problem Relation Age of Onset No Known Problems (more content not included)... [facility] 08-27-2024 Instructions Mook Mcguire APRN.KEEGAN - 08/27/2024 9:28 AM EDT Stop at director of front office and schedule consult with plastic surgery I will send mychart regarding GI follow up from March scope results and recommendations, will let you know about adipex Watch sugar/carb intake , will increase GI symptoms on GLP-1 Get your mammaogram scheduled documented in this encounter [facility] 08-27-2024 Note HNO ID: [id number] Author: MOOK MCGUIRE APRN.GUM COOK Service: ? Author Type: Nurse Practitioner Type: Progress Notes Filed: 08/27/2024 15:53 Note Text: This is a 39 year old female who presents today with: Candelaria Grant is a 39-year-old female with a history of type 2 diabetes mellitus, presenting for a 6-month follow-up and medication management. Follow up from February visit with Polly Grant, assessment/plan below: ASSESSMENT/PLAN: 1. Controlled type 2 diabetes mellitus without complication, without long-term current use of insulin (HCC) - ICD9: 250.00, ICD10: E11.9 (primary diagnosis) - Controlled Repeat hgA1c in 1 month. Decrease Mounjaro to 12.5 mg weekly d/t exacerbating side effects of GERD. - TIRZEPATIDE 12.5 MG/0.5 ML SUBCUTANEOUS PEN INJECTOR - HEMOGLOBIN A1C - ALBUMIN/CREATININE RATIO, URINE 2. Gastroesophageal reflux disease without esophagitis - ICD9: 530.81, ICD10: K21.9 Continue with plan as instructed at recent visit with Dr. Linder. Continue with increase Protonix dosage. Decrease Mounjaro regimen and see if this helps symptoms. If no improvement, then start carafate regimen as prescribed prior (since she has not started this yet, trial decreasing mounjaro first). Continue with general surgery consult. Todays visit: HISTORY OF PRESENT ILLNESS: Type 2 Diabetes Mellitus: - Last A1c was in October which was just at the high end of the normal range for the first time - Denies checking blood sugars at home. - Denies symptoms of hypoglycemia or hyperglycemia. - Last eye exam was in March or April; believes a diabetic retinal exam was performed. Medication Management: - Currently taking tirzepatide 12.5 mg weekly. - Not taking metformin; Candelaria reports disliking the medication and adds to her diarrhea - Taking pantoprazole once daily in the morning, realized order was for twice daily - Taking colestipol; notes diarrhea if not taken for a day or two. - Previously prescribed sucralfate but did not take it. - Previously prescribed naproxen but did not take it. Gastrointestinal Issues: - Reports ongoing stomach issues, even after holding tirzepatide for 7 days - EGD performed in March; no follow-up appointment scheduled and no results available - Denies nausea, but upset stomach and loose stools and acid reflux are chronic issues Weight Management: - Reports weight loss but unable to lose additional weight - Current BMI is 27. - Previously weighed almost 300 lbs; now experiencing discomfort from excess skin which is rubbing in lower abdomen at her scar - exercising with her significant other - Diet consists of eating less than before, otherwise no specific diet adherence ADHD Concerns: - Reports difficulty focusing and functioning; believes she has ADHD and "no one will listen to her" - Son was diagnosed with ADHD last year. -denies anxiety and depression concerns Adult ADHD self-reported scale completed and all answers are in the "very often" category except 2 that are in the "often" category- will be scanned into chart. Wants a refill on adipex Labs In July: Increased WBC but was acutely ill CMP- fast glucose 185 Last A1C in October 19.6 Communication with Shannan Maddox received: Her EGD was normal, showed some gastritis AND a very small hiatal hernia. biopsies were consistent with GERD but not intestinal metaplasia. If she is still having reflux symptoms I wouldn't add the adipex because the stimulant can worsen those symptoms especially the gastritis also mounjaro can worsen GERD but weight loss can improve GERD, so its a risk vs benefit. PAST MEDICAL HISTORY: PAST MEDICAL HISTORY Diagnosis Date Abnormal Pap smear of cervix ascus cannot rule out high grade Diabetes mellitus type 2 in obese Gastroesophageal reflux disease without esophagitis Globus sensation Migraine headache Obesity PAST SURGICAL HISTORY Procedure Laterality Date SECTION HX 03/24/2013 CHOLECYSTECTOMY HX INSERTION OF IUD 2017 Mirena IUD removed 10/20/2020 KYLEENA IUD 10/20/2020 LYSIS OF ADHESIONS 07/04/2023 NEXPLANON INSERTION 05/10/2013 OSTECTOMY CALCANEUS SPUR W/WO PLNTAR FASCIAL RLS Left Dr. Jimenez REPAIR OF NASAL SEPTUM SALPINGECTOMY Bilateral 07/04/2023 Laparoscopic B/L Salpingectomy at [facility]-Dr. Condon ALLERGIES Macadamia Nut Oil and Meloxicam MEDICATIONS Current Outpatient Medications Medication Sig cyclobenzaprine (FLEXERIL) 10 mg tablet Take 1 tablet by mouth at bedtime as needed for muscle spasm for up to 20 days. qqwunulbtlLSEJA-truwwd-erkxswdts (BMX 1:1:1) 1:1:1 liqd Take 5 mL by mouth every 4 hours as needed. Swish and spit EPINEPHrine (EPIPEN) 0.3 mg/0.3 mL auto-injector Use for allergic reaction levonorgestrel (KYLEENA) 17.5 mcg/24 hrs (5 yrs) 19.5 mg IUD 1 Each by INTRAUTERINE route one time only. flash glucose sensor (FREESTYLE EMILIA 14 DAY SENSOR) kit Apply and u (more content not included)... [facility] 08-27-2024 History of Presen t illness Narrative This is a 39 year old female who presents today with: Candelaria Maximo Grant is a 39-year-old female with a history of type 2 diabetes mellitus, presenting for a 6-month follow-up and medication management. Follow up from February visit with Polly Grant, assessment/plan below: ASSESSMENT/PLAN: 1. Controlled type 2 diabetes mellitus without complication, without long-term current use of insulin ([facility]) - ICD9: 250.00, ICD10: E11.9 (primary diagnosis) - Controlled Repeat hgA1c in 1 month. Decrease Mounjaro to 12.5 mg weekly d/t exacerbating side effects of GERD. - TIRZEPATIDE 12.5 MG/0.5 ML SUBCUTANEOUS PEN INJECTOR - HEMOGLOBIN A1C - ALBUMIN/CREATININE RATIO, URINE 2. Gastroesophageal reflux disease without esophagitis - ICD9: 530.81, ICD10: K21.9 Continue with plan as instructed at recent visit with Dr. Linder. Continue with increase Protonix dosage. Decrease Mounjaro regimen and see if this helps symptoms. If no improvement, then start carafate regimen as prescribed prior (since she has not started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 swallowing, unable to control secretions, severe abdominal pain, or overall significantly worsening symptoms. Theresa Wheeler PA-C 07/21/2024 documented in this encounter [facility] 07-21-2024 Telephone encounter Note Pt informed, verbalized understanding. Pt reports she's starting to feel better. Asking if you can write her a letter off work for rest of the week and she can return Wednesday 07/26. If so, please send to [employer]. Helene Bishop MA [facility] 07-21-2024 Telephone encounter Note Please first see how patient is feeling? Let patient know that her labs are showing a likely past or previous infection of mono. It is possible for reactivation as well. Your CBC does show an infection present, likely other viral etiology. Strep was negative in office, so I would continue the steroid pack and supportive care. F/u in 24-48 hours if not improving, sooner if worsening. Go to the ED if difficulty swallowing, unable to control secretions, severe abdominal pain, or overall significantly worsening symptoms. Theresa Wheeler PA-C 07/21/2024 [facility] 07-20-2024 Telephone encounter Note Please let patient know that her RUQ overall looked good. There was some changes consistent with fatty liver. Low fat/low cholesterol diet recommended. No enlargement of the spleen noted. Awaiting lab results for mono testing. Continue fluids/good hydration, rest, tylenol, start medrol dose [place]. If severe abdominal pain, difficulty swallowing, severe worsening symptoms-seek care in ED Theresa Wheeler PA-C 07/20/2024 [facility] 07-20-2024 History of Presen t illness Narrative Radiology Service Progress Note PATIENT NAME: Candelaria Grant DATE OF SERVICE: July 20, 2024 TIME: 10:55 AM PATIENT IDENTITY VERIFICATION COMPLETED USING TWO (2) IDENTIFIERS: Name and Date of confirmed by patient verbally. FALL SCREENING: Has the patient had 2 falls in the last year or 1 fall with injury or currently using an Ambulatory Assistive Device (Walker, Cane, Wheelchair, Crutches, etc.)? No PATIENT GENDER DATA: Assigned female at . status: : No status: NO. PATIENT RELEVANT IMPLANT DATA REVIEWED: Yes PATIENT PRESENTS WITH AN IMPLANTABLE OR ATTACHED MOBILE APPLICATION ARCHITECT: NO RADIOLOGY DEPARTMENT: Ultrasound PERIPHERAL IV DATA: Not applicable SIGNED BY: Marina Kaur RDMS, RVT July 20, 2024 10:55 AM documented in this encounter [facility] 07-20-2024 Note HNO ID: [id number] Author: MARINA KAUR RT(R) Service: ? Author Type: Technologist Type: Progress Notes Filed: 07/20/2024 10:56 Note Text: Radiology Service Progress Note PATIENT NAME: Candelaria Grant DATE OF SERVICE: July 20, 2024 TIME: 10:55 AM PATIENT IDENTITY VERIFICATION COMPLETED USING TWO (2) IDENTIFIERS: Name and Date of confirmed by patient verbally. FALL SCREENING: Has the patient had 2 falls in the last year or 1 fall with injury or currently using an Ambulatory Assistive Device (Walker, Cane, Wheelchair, Crutches, etc.)? No PATIENT GENDER DATA: Assigned female at . status: : No status: NO. PATIENT RELEVANT IMPLANT DATA REVIEWED: Yes PATIENT PRESENTS WITH AN IMPLANTABLE OR ATTACHED MOBILE APPLICATION ARCHITECT: NO RADIOLOGY DEPARTMENT: Ultrasound PERIPHERAL IV DATA: Not applicable SIGNED BY: Marina Kaur RDMS, RVT July 20, 2024 10:55 AM [facility] 07-20-2024 Note HNO ID: [id number] Author: THERESA WHEELER PA-C Service: ? Author Type: Physician Radiology Scheduler Type: Progress Notes Filed: 07/20/2024 09:36 Note Text: Recording using tenfarms software for draft documentation of the visit was discussed with the patient/authorized office machines sales representative; all questions welcomed and answered. Patient/authorized office machines sales representative agreed to proceed 07/20/2024 Sore Throat: - Onset: Friday. - Evaluated at [facility] yesterday morning; diagnosed with throat infection. strep test was not done. - Amoxicillin prescribed but not yet started. - Severe odynophagia, difficulty swallowing liquids,but still able and able to control secetions.. - Fever up to 101 degreeF last night; took ibuprofen earlier today. - Mild cough, nasal congestion. - Denies SOB, wheezing, nausea, or emesis. - Reports significant fatigue, slept all day. - Denies history of mononucleosis. Abdominal Pain: - Diffuse abdominal pain, particularly in the LUQ. No vomiting, diarrhea. Pain is not constant. Diabetes: - Does not check blood sugars daily; stopped when A1c was good. - Last A1c 5.5% in December. Current Outpatient Medications on File Prior to Visit Medication Sig tirzepatide (MOUNJARO) 12.5 mg/0.5 mL pen injector Inject 12.5 mg subcutaneously one time a week. tirzepatide (MOUNJARO) 12.5 mg/0.5 mL pen injector Inject 12.5 mg subcutaneously one time a week. Phentermine HCl 37.5 mg capsule Take 1 capsule by mouth once daily for 90 days. BMI 30.57 colestipol (COLESTID) 1 gram tablet Take 1 tablet by mouth once daily. For Diarrhea Post Gall Bladder Removal pantoprazole DR (PROTONIX) 40 mg tablet Take 1 tablet by mouth two times a day. Take on empty stomach, 1/2 hr before meal. sucralfate (CARAFATE) 1 gram tablet Take 1 tablet by mouth before meals and at bedtime. EPINEPHrine (EPIPEN) 0.3 mg/0.3 mL auto-injector Use for allergic reaction levonorgestrel (KYLEENA) 17.5 mcg/24 hrs (5 yrs) 19.5 mg IUD 1 Each by INTRAUTERINE route one time only. flash glucose sensor (HealthQxSTYLE EMILIA 14 DAY SENSOR) kit Apply and use as directed. Dx: Uncontrolled type 2 diabetes without insulin. flash glucose scanning reader (FREESTYLE EMILIA 3 READER) 1 Each once daily. Lancets lancets Test blood sugar(s)2 times daily. Dx: uncontrolled type 2 DM insulin needles, DISPOSABLE, (BD INSULIN PEN NEEDLE UF) 31 gauge x 5/16" use once daily as directed blood sugar diagnostic (BLOOD GLUCOSE TEST) test strip Test blood sugar(s) 2 times daily. Dx: uncontrolled type 2 DM sulfamethoxazole-trimethoprim (BACTRIM DS) 800-160 mg per tablet Take 1 tablet by mouth two times a day for 14 days. (Patient not taking: Reported on 07/20/2024) ofloxacin (FLOXIN) 0.3 % otic solution Use 5 Drops in both ears once daily. (Patient not taking: Reported on 07/20/2024) metFORMIN ER (GLUCOPHAGE XR) 500 mg 24 hr tablet Take 1 tablet by mouth two times a day. Phenyleph-Shark Vyx-Qkvk-Nky (HEMORRHOIDAL) 0.25-3-12 % crea by RECTAL route twice daily. No current facility-administered medications on file prior to visit. PAST MEDICAL HISTORY Diagnosis Date Abnormal Pap smear of cervix ascus cannot rule out high grade Diabetes mellitus type 2 in obese Gastroesophageal reflux disease without esophagitis Globus sensation Migraine headache Obesity Allergies: Macadamia Nut Oil Hives, Swelling, Shortness of Breath Meloxicam Intolerance Comment:Headache Constitutional: (+) fever, (+) fatigue Ears/Nose/Mouth/Throat: (+) sore throat, (+) congestion-minimal, (+) cough-minimal Respiratory: (-) shortness of breath Gastrointestinal: (+) stomach upset, (-) nausea, (-) vomiting BP 115/76 Pulse 89 Temp 36.7 ?C (98.1 ?F) (Oral) Resp 16 Wt 82.9 kg (182 lb 12.8 oz) LMP 05/25/2024 (Exact Date) SpO2 100% BMI 26.99 kg/m? GENERAL: NAD, alert and oriented. SKIN: Unremarkable, no rash or skin lesions. HEAD: Normocephalic. EYES: PERRLA, EOMI, conjunctiva clear. EARS: External ears normal, canals clear, TM's normal. NOSE/SINUSES: Nares normal. Septum midline. OROPHARYNX: Lips, mucosa, and tongue normal, good dentition. + Erythema, + SERGIO tonsilla enlargment with white exuates SERGIO. Uvula midline. controlling secretions. NECK: Supple, + anterior, and small posterior cervical lymphadenopathy SERGIO, normal thyroid, LUNGS: Clear to auscultation bilaterally, no wheezes/rhonchi/rales. HEART: Regular rate and rhythm ABDOMEN: Soft, tenderness noted in the right upper quadrant and left upper quadrant. no rebound, rigidity or guarding. negative Anaya's and McBurney's, and Rovsing's. Normal bowel sounds. Labs: - (Today) Strep test: Negative 1. Sore throat (J02.9) 2. Fatigue, unspecified type (R53.83) 3. LUQ pain (R10.12) - Rapid strep test negative. - Suspected possible infectious mononucleosis (Edyta-Carpenter virus) vs other viral etiology - Ordered CBC, CMP, and Edyta-Carpenter virus serology. - Ordered abdominal (more content not included)... [facility] 07-20-2024 History of Presen t illness Narrative Recording using tenfarms software for draft documentation of the visit was discussed with the patient/authorized office machines sales representative; all questions welcomed and answered. Patient/authorized office machines sales representative agreed to proceed 07/20/2024 Sore Throat: - Onset: Friday. - Evaluated at [facility] yesterday morning; diagnosed with throat infection. strep test was not done. - Amoxicillin prescribed but not yet started. - Severe odynophagia, difficulty swallowing liquids,but still able and able to control secetions.. - Fever up to 101 degreeF last night; took ibuprofen earlier today. - Mild cough, nasal congestion. - Denies SOB, wheezing, nausea, or emesis. - Reports significant fatigue, slept all day. - Denies history of mononucleosis. Abdominal Pain: - Diffuse abdominal pain, particularly in the LUQ. No vomiting, diarrhea. Pain is not constant. Diabetes: - Does not check blood sugars daily; stopped when A1c was good. - Last A1c 5.5% in December. Current Outpatient Medications on File Prior to Visit Medication Sig tirzepatide (MOUNJARO) 12.5 mg/0.5 mL pen injector Inject 12.5 mg subcutaneously one time a week. tirzepatide (MOUNJARO) 12.5 mg/0.5 mL pen injector Inject 12.5 mg subcutaneously one time a week. Phentermine HCl 37.5 mg capsule Take 1 capsule by mouth once daily for 90 days. BMI 30.57 colestipol (COLESTID) 1 gram tablet Take 1 tablet by mouth once daily. For Diarrhea Post Gall Bladder Removal pantoprazole DR (PROTONIX) 40 mg tablet Take 1 tablet by mouth two times a day. Take on empty stomach, 1/2 hr before meal. sucralfate (CARAFATE) 1 gram tablet Take 1 tablet by mouth before meals and at bedtime. EPINEPHrine (EPIPEN) 0.3 mg/0.3 mL auto-injector Use for allergic reaction levonorgestrel (KYLEENA) 17.5 mcg/24 hrs (5 yrs) 19.5 mg IUD 1 Each by INTRAUTERINE route one time only. flash glucose sensor (FREESTYLE EMILIA 14 DAY SENSOR) kit Apply and use as directed. Dx: Uncontrolled type 2 diabetes without insulin. flash glucose scanning reader (FREESTYLE EMILIA 3 READER) 1 Each once daily. Lancets lancets Test blood sugar(s)2 times daily. Dx: uncontrolled type 2 DM insulin needles, DISPOSABLE, (BD INSULIN PEN NEEDLE UF) 31 gauge x 5/16" use once daily as directed blood sugar diagnostic (BLOOD GLUCOSE TEST) test strip Test blood sugar(s) 2 times daily. Dx: uncontrolled type 2 DM sulfamethoxazole-trimethoprim (BACTRIM DS) 800-160 mg per tablet Take 1 tablet by mouth two times a day for 14 days. (Patient not taking: Reported on 07/20/2024) ofloxacin (FLOXIN) 0.3 % otic solution Use 5 Drops in both ears once daily. (Patient not taking: Reported on 07/20/2024) metFORMIN ER (GLUCOPHAGE XR) 500 mg 24 hr tablet Take 1 tablet by mouth two times a day. Phenyleph-Shark Zlz-Bimy-Fix (HEMORRHOIDAL) 0.25-3-12 % crea by RECTAL route twice daily. No current facility-administered medications on file prior to visit. PAST MEDICAL HISTORY Diagnosis Date Abnormal Pap smear of cervix ascus cannot rule out high grade Diabetes mellitus type 2 in obese Gastroesophageal reflux disease without esophagitis Globus sensation Migraine headache Obesity Allergies: Macadamia Nut Oil Hives, Swelling, Shortness of Breath Meloxicam Intolerance Comment:Headache Constitutional: (+) fever, (+) fatigue Ears/Nose/Mouth/Throat: (+) sore throat, (+) congestion-minimal, (+) cough-minimal Respiratory: (-) shortness of breath Gastrointestinal: (+) stomach upset, (-) nausea, (-) vomiting BP 115/76 Pulse 89 Temp 36.7 C (98.1 F) (Oral) Resp 16 Wt 82.9 kg (182 lb 12.8 oz) LMP 05/25/2024 (Exact Date) SpO2 100% BMI 26.99 kg/m GENERAL: NAD, alert and oriented. SKIN: Unremarkable, no rash or skin lesions. HEAD: Normocephalic. EYES: PERRLA, EOMI, conjunctiva clear. EARS: External ears normal, canals clear, TM's normal. NOSE/SINUSES: Nares normal. Septum midline. OROPHARYNX: Lips, mucosa, and tongue normal, good dentition. + Erythema, + ESRGIO tonsilla enlargment with white exuates SERGIO. Uvula midline. controlling secretions. NECK: Supple, + anterior, and small posterior cervical lymphadenopathy SERGIO, normal thyroid, LUNGS: Clear to auscultation bilaterally, no wheezes/rhonchi/rales. HEART: Regular rate and rhythm ABDOMEN: Soft, tenderness noted in the right upper quadrant and left upper quadrant. no rebound, rigidity or guarding. negative Anaya's and McBurney's, and Rovsing's. Normal bowel sounds. Labs: - (Today) Strep test: Negative 1. Sore throat (J02.9) 2. Fatigue, unspecified type (R53.83) 3. LUQ pain (R10.12) - Rapid strep test negative. - Suspected possible infectious mononucleosis (Edyta-Carpenter virus) vs other viral etiology - Ordered CBC, CMP, and Edyta-Carpenter virus serology. - Ordered abdominal ultrasound to evaluate for splenomegaly and hepatomegaly. - Prescribed Medrol Dosepak; advised patient on potential side effects including hyperglycemia. - Provided education on the natural course of mononucleosis, including potential duration of 4-6 weeks and associated fatigue - Advised against starting amoxicillin due to risk of rash if mononucleosis is confirmed. - Instructed to avoid vigorous exercise and contact sports to prevent splenic rupture. - Provided red flag warnings: inability to swallow, drooling, high fever, severe abdominal pain, and instructed to seek emergency care if these occur. - Follow-up in 3-5 days if no improvement; consider starting amoxicillin if all tests are negative and symptoms persist. 4. Type 2 diabetes mellitus without complication, without long-term current use of insulin (HCC) (E11.9) - Last A1c 5.5 patient not currently monitoring blood glucose levels. - Advised patient to monitor blood glucose closely while on Medrol Dosepak; instructed to report if levels exceed 250-300 mg/dL. - Discussed potential need to discontinue steroids if significant hyperglycemia occurs. The patient indicates understanding of these issues and agrees with the plan. Reviewed red flags and when to seek care sooner. Theresa Wheeler PA-C 07/20/2024 documented in this encounter [facility] 07-20-2024 Instructions Theresa Wheeler PA-C - 07/20/2024 8:51 AM EDT Begin taking the Medrol Dosepak (steroid) as prescribed. Because you have diabetes, monitor your blood sugar closely while on this medication. Call us if your blood sugar rises above 250-300. Do not take the amoxicillin that was provided at the ER. Today, complete the lab tests ordered: a mono (Edyta-Carpenter) test, CBC, and liver function tests (CMP), as well as a strep test. Have the ultrasound of your spleen and liver completed today as scheduled. Watch for any red flag symptoms such as an inability to swallow even your own saliva, drooling, a high fever, or severe abdominal pain (which could indicate an abscess or spleen issues). If these occur, go to the emergency room immediately. Use the work note provided and plan to return on the 8th to assess how you are feeling. If your symptoms have not improved by day 5 (and if all the tests for mono and strep are negative), contact our office to discuss possibly starting amoxicillin. documented in this encounter [facility] 07-19-2024 Hospital Discharg e instructions Patient Education 07/19/2024 08:17:36 Strep Throat Strep Throat Strep throat is a throat infection caused by a bacteria called group A Streptococcus bacteria (group A strep). The bacteria live in the nose and throat. Strep throat is contagious and spreads easily from person to person through airborne droplets when an infected person coughs, sneezes, or talks. Good hand washing is important to help prevent the spread of this illness. Children diagnosed with strep throat should not attend school or daycare until they have been taking antibiotics and had no fever for 24 hours. Strep throat mainly affects school-aged children between 5 and 15 years of age, but can affect adults too. When it isn't treated, it can lead to serious problems including rheumatic fever (an inflammation of the joints and heart) and kidney damage. How is strep throat spread? Strep throat can be easily spread from an infected person's saliva by: Drinking and eating after them Sharing a straw, cup, toothbrushes, and eating utensils When to go to the emergency room (ER) Call 911 if your child has trouble breathing or swallowing. Call your healthcare provider about other symptoms of strep throat, such as: Throat pain, especially when swallowing Red, swollen tonsils Swollen lymph glands Stomachache; sometimes, vomiting in younger children Pus in the back of the throat What to expect in the ER Your child will be examined and the healthcare provider will ask about his or her health history. The child's tonsils will be examined. A sample of fluid may be taken from the back of the throat using a soft swab. The sample can be checked right away for the bacteria that cause strep throat. Another sample may also be sent to a lab for testing. An antibiotic is usually prescribed to kill the bacteria. Be sure your child takes all the medicine, even if he or she starts to feel better. Antibiotics will not help a viral throat infection. If swallowing is very painful, painkilling medicine may also be prescribed. When to call your healthcare provider Call your healthcare provider if your otherwise healthy child has finished the treatment for strep throat and has: Joint pain or swelling Shortness of breath Signs of dehydration (no tears when crying and not urinating for more than 8 hours) Ear pain or pressure Headaches Rash Fever (see Fever and children, below) Fever and children Always use a digital thermometer to check your child s temperature. Never use a mercury thermometer. For infants and toddlers, be sure to use a rectal thermometer correctly. A rectal thermometer may accidentally poke a hole in (perforate) the rectum. It may also pass on germs from the stool. Always follow the product maker s directions for proper use. If you don t feel comfortable taking a rectal temperature, use another method. When you talk to your child s healthcare provider, tell him or her which method you used to take your child s temperature. Here are guidelines for fever temperature. Ear temperatures aren t accurate before 6 months of age. Don t take an oral temperature until your child is at least 4 years old. Infant under 3 months old: Ask your child s healthcare provider how you should take the temperature. Rectal or forehead (temporal artery) temperature of 100.4 F (38 C) or higher, or as directed by the provider Armpit temperature of 99 F (37.2 C) or higher, or as directed by the provider Child age 3 to 36 months: Rectal, forehead (temporal artery), or ear temperature of 102 F (38.9 C) or higher, or as directed by the provider Armpit temperature of 101 F (38.3 C) or higher, or as directed by the provider Child of any age: Repeated temperature of 104 F (40 C) or higher, or as directed by the provider Fever that lasts more than 24 hours in a child under 2 years old. Or a fever that lasts for 3 days in a child 2 years or older. Easing strep throat symptoms These tips can help ease your child's symptoms: Offer gnou-gn-lhnxzbt foods, such as soup, applesauce, popsicles, cold drinks, milk shakes, and yogurt. Provide a soft diet and avoid spicy or acidic foods. Use a cool-mist humidifier in the child's bedroom. Gargle with saltwater (for older children and adults only). Mix 1/4 teaspoon salt in 1 cup (8 oz) of warm water. [id number] [employer] [place] [address]. All rights reserved. This information is not intended as a substitute for professional medical care. Always follow your healthcare professional's instructions. Follow Up Care 07/19/2024 08:07:14 With:GIGI CARRILLO DO Address: [address] [place], [place] [address] [id number]- When:2-4 days [facility] 07-19-2024 Note Discharge Instructions Thank you for allowing [facility] to assist you with your healthcare needs. The following is important discharge information regarding your hospital visit. Diagnosis from Today's Visit Pharyngitis What to Do Next Instructions from Your Care Team No qualifying data available. Post Acute Orders No qualifying data available. You Need to Schedule the Following Appointments Follow Up with GIGI CARRILLO DO When:Within 2-4 days Where:[address] [place], [place] [id number]- Allergies macadamia nut throat swelling, hives Medications Please ask your primary doctor or pharmacist before taking any other medication not listed, including over the counter drugs, herbal medications, vitamins and or supplements as they may interact with your home medications. What How Much When Why Instructions Last Dose New amoxicillin (amoxicillin 500 mg oral capsule) 1 cap by mouth Two (2) times a day Duration: 10 Days Printed Prescription Unchanged colestipol (colestipol 1 g oral tablet) 1 tab(s) by mouth Once a day Unchanged dicyclomine (dicyclomine 10 mg oral capsule) 1 cap by mouth Four (4) times a day Nausea Diarrhea Duration: 7 Days Unchanged liraglutide (Victoza 18 mg/ 3 mL subcutaneous Pen (NF)) 1.8 Milligram Subcutaneous Once a day Unchanged metFORMIN (metFORMIN 500 mg oral tablet) 1 tab(s) by mouth Two (2) times a day Please take this list to your next doctor s visit. Bring all medications you take, including over the counter medications, herbals and other supplements with you to your doctor s visit. Patients and families are reminded to discard old lists and to update any records with all medication providers or retail pharmacies. Education Materials Strep Throat Strep throat is a throat infection caused by a bacteria called group A Streptococcus bacteria (group A strep). The bacteria live in the nose and throat. Strep throat is contagious and spreads easily from person to person through airborne droplets when an infected person coughs, sneezes, or talks. Good hand washing is important to help prevent the spread of this illness. Children diagnosed with strep throat should not attend school or daycare until they have been taking antibiotics and had no fever for 24 hours. Strep throat mainly affects school-aged children between 5 and 15 years of age, but can affect adults too. When it isn't treated, it can lead to serious problems including rheumatic fever (an inflammation of the joints and heart) and kidney damage. How is strep throat spread? Strep throat can be easily spread from an infected person's saliva by: Drinking and eating after them Sharing a straw, cup, toothbrushes, and eating utensils When to go to the emergency room (ER) Call 911 if your child has trouble breathing or swallowing. Call your healthcare provider about other symptoms of strep throat, such as: Throat pain, especially when swallowing Red, swollen tonsils Swollen lymph glands Stomachache; sometimes, vomiting in younger children Pus in the back of the throat What to expect in the ER Your child will be examined and the healthcare provider will ask about his or her health history. The child's tonsils will be examined. A sample of fluid may be taken from the back of the throat using a soft swab. The sample can be checked right away for the bacteria that cause strep throat. Another sample may also be sent to a lab for testing. An antibiotic is usually prescribed to kill the bacteria. Be sure your child takes all the medicine, even if he or she starts to feel better. Antibiotics will not help a viral throat infection. If swallowing is very painful, painkilling medicine may also be prescribed. When to call your healthcare provider Call your healthcare provider if your otherwise healthy child has finished the treatment for strep throat and has: Joint pain or swelling Shortness of breath Signs of dehydration (no tears when crying and not urinating for more than 8 hours) Ear pain or pressure Headaches Rash Fever (see Fever and children, below) Fever and children Always use a digital thermometer to check your child s temperature. Never use a mercury thermometer. For infants and toddlers, be sure to use a rectal thermometer correctly. A rectal thermometer may accidentally poke a hole in (perforate) the rectum. It may also pass on germs from the stool. Always follow the product maker s directions for proper use. If you don t feel comfortable taking a rectal temperature, use another method. When you talk to your child s healthcare provider, tell him or her which method you used to take your child s temperature. Here are guidelines for fever temperature. Ear temperatures aren t accurate before 6 months of age. Don t take an oral temperature until your child is at least 4 years old. under 3 months old: Ask your child s healthcare provider how you should take the temperature. Rectal or forehead (temporal artery) temperature of 100.4 F (38 C) or higher, or as directed by the provider Armpit temperature of 99 F (37.2 C) or higher, or as directed by the provider Child age 3 to 36 months: Rectal, forehead (temporal artery), or ear temperature of 102 F (38.9 C) or higher, or as directed by the provider Armpit temperature of 101 F (38.3 C) or higher, or as directed by the provider Child of any age: Repeated temperature of 104 F (40 C) or higher, or as directed by the provider Fever that lasts more than 24 hours in a child under 2 years old. Or a fever that lasts for 3 days in a child 2 years or older. Easing strep throat symptoms These tips can help ease your child's symptoms: Offer hutv-me-gddgkmg foods, such as soup, applesauce, popsicles, cold drinks, milk shakes, and yogurt. Provide a soft diet and avoid spicy or acidic foods. Use a cool-mist humidifier in the child's bedroom. Gargle with saltwater (for older children and adults only). Mix 1/4 teaspoon salt in 1 cup (8 oz) of warm water. [id number] [employer]. [address] [place] [address], [place] [address]. All rights reserved. This information is not intended as a substitute for professional medical care. Always follow your healthcare professional's instructions. Additional Information VACCINATE! IT SAVES LIVES! Members of the community who have not yet received the COVID-19 vaccine and would like to receive it can visit one of [facility] vaccine clinics. There are many vaccine clinic locations within the [facility]. For locations and available times, please visit [email or web address] [email or web address] It is important to note that some COVID mobile vaccine clinics are held outdoors and may be canceled in rainy or stormy conditions. To learn more about pediatric vaccinations (ages 5-11), we invite you to visit the [facility] webpage. [email or web address]/p [email or web address]-Freq [email or web address]-Eonsc-Xpwympfzi.html To learn more about the COVID-19 vaccine, we invite you to visit the CDC website for a list of frequently asked questions. https://www.cdc.gov/coronavirus/ 2019-ncov/vaccines/faq.html [facility] Patient Portal Access Instructions: Stay connected with your healthcare team and access your personal medical information anytime with the [facility] Patient Portal. If you would like a full copy of your medical records please contact the [facility] Medical Records Department Friday through Friday between 8a.m. and 4:30p.m. Please follow the directions below to access the portal: 1.Access the email account you provided upon registration to the hospital.2.Look for an invitation email from [facility].3.Open the email and access the invitation link: Accept Invitation to [facility]4.Fill in the required culver to create your account. Sign into [email or web address] with your username and password that you created in the above steps to stay up to date. You can then view a summary of results, a summary of your visits, and the ability to download your summaries to your computer or send the information securely to a physician. Remember that your healthcare information is confidential, so carefully consider who you will allow to register on the [facility] Patient Portal for access to your information. You can also access the [facility] Patient Portal on the [employer]. Simply click on "Health Records" under "Health Data" and then click on the [employer] logo. HOW TO SAFELY DISPOSE OF PRESCRIPTION MEDICATIONS Please use one of the following methods to safely dispose of your unused medications. 1.Use a drug disposal kit: the drug disposal pouch allows you to safely discard your old and unused drugs. Ask your nurse to give you one when you are discharged.2.Visit a local take-back location: Many local pharmacies and police departments have programs that collect old and unwanted prescription drugs. Call your local pharmacy or go to http://[employer]/8F6Qc7p to find one close to you.3.Make use of household items: Use cat litter or old coffee grounds to dispose medications if other options are not available. Mix your drugs with these household products, seal them in an airtight container and throw it into the garbage. Call [facility]: [phone] to be sure your drugs can be disposed of in this way. Some medicines may require a different approach.4.Never flush your medications down the toilet. IF YOU HAVE BEEN PRESCRIBED AN OPIOIDS FOR PAIN If you have been prescribed an opioid (such as hydrocodone, oxycodone or morphine), it is critical to understand the possible side effects and risks of opioid pain medications. Even when taken as directed, opioids can have several side effects including: Tolerance, meaning you might need to take more of a medication for the same pain relief. Nausea, vomiting and/or constipation. Sleepiness, dizziness, dry mouth, confusion, depression or itching. Physical dependence, meaning you have withdrawal symptoms when a medication is stopped ? this can develop within a few days. KNOW YOUR RESPONSIBILITIES It is important to know exactly how much and how often to take the opioid pain medications you are prescribed. Never take opioids in higher amounts or more often than prescribed. Do not combine opioids with alcohol or other drugs that cause drowsiness, such as benzodiazepines, also known as benzos, including diazepam and alprazolam, muscle relaxants or sleep aids. Never sell or share prescription opioids. This is illegal. Store opioids in a secure place and out of reach of others (including children, family, friends and visitors). The last page(s) of this document has been signed and retained as a CHART COPY Signatures Patient Education Materials Strep Throat Medication Leaflets My discharge plan and instructions have been reviewed and explained to me and I,CANDELARIA GRANT understand my current condition and have read and understand these discharge instructions. I have received a written copy of the plan/instructions. If I have questions, I am aware that I should contact my doctor. Patient/School Based Therapist Signature: Date/Time: Relationship to Patient: Witness Name/Signature: Date/Time: [facility] 07-14-2024 Telephone encounter Note Pt saw Bree Montalvo on 07/06 for possible UTI and was started on Bactrim. Pt took for 3-4 days before she got notified that her culture was negative and to stop the antibiotic. Stopped antibiotic on 07/09. Pt states she is diabetic and prone to yeast infections. States she discussed this with Bree when she saw her and Bree just said to call in and she would send a script to the pharmacy. Pt states she is having white discharge, itching, irritation and burning. Uses [facility] in [place]. Diflucan prescription pended from previous script in May. Bree Montalvo is out of office today. Sent to PCP Dr. Carrillo. [facility] 07-14-2024 Miscellaneous Notes Pt saw Bree Montalvo on 07/06 for possible UTI and was started on Bactrim. Pt took for 3-4 days before she got notified that her culture was negative and to stop the antibiotic. Stopped antibiotic on 07/09. Pt states she is diabetic and prone to yeast infections. States she discussed this with Bree when she saw her and Bree just said to call in and she would send a script to the pharmacy. Pt states she is having white discharge, itching, irritation and burning. Uses [facility] in [place]. Diflucan prescription pended from previous script in May. Bree Monatlvo is out of office today. Sent to PCP Dr. Carrillo. documented in this encounter [facility] 07-06-2024 Note HNO ID: [id number] Author: BREE MONTALVO APRN.[employer]OOK Service: ? Author Type: Nurse Practitioner Type: Progress Notes Filed: 07/06/2024 13:19 Note Text: Chief Complaint Patient presents with: UTI: X 4 days HPI Candelaria Grant is a 39 year old female who presents here today for Above Complaints.. Patient presents for UTI symptoms and flank pain x4 days. Reports urinary frequency ad pain with urination, low back and abdominal pain, fever. Has been taking tylenol and ibuprofen. Past medical history, appointments, medications, allergies reviewed. Previous Medical History PAST MEDICAL HISTORY Diagnosis Date Abnormal Pap smear of cervix ascus cannot rule out high grade Diabetes mellitus type 2 in obese Gastroesophageal reflux disease without esophagitis Globus sensation Migraine headache Obesity Previous Surgical History PAST SURGICAL HISTORY Procedure Laterality Date SECTION HX 03/24/2013 CHOLECYSTECTOMY HX INSERTION OF IUD 2017 Mirena IUD removed 10/20/2020 KYLEENA IUD 10/20/2020 LYSIS OF ADHESIONS 07/04/2023 NEXPLANON INSERTION 05/10/2013 OSTECTOMY CALCANEUS SPUR W/WO PLNTAR FASCIAL RLS Left Dr. Jimenez REPAIR OF NASAL SEPTUM SALPINGECTOMY Bilateral 07/04/2023 Laparoscopic B/L Salpingectomy at [facility]-Dr. Condon Family History FAMILY HISTORY Problem Relation Age of Onset No Known Problems Mother Cancer Father pancreatic and renal. Anesthesia Problems Father slow emergence, PONV No Known Problems Brother No Known Problems Son Breast Cancer Maternal Aunt Cervical Cancer Paternal Aunt x2- and one cousin No Known Problems Maternal Grandmother Diabetes Maternal Grandfather Diabetes Paternal Grandfather other (lymphomia) Other maternal cousin other (leukemia) Other cousin Patient Allergies ALLERGIES Allergen Reactions Macadamia Nut Oil Hives, Swelling, Shortness of Breath Meloxicam Intolerance Headache Current Medications Current Outpatient Medications on File Prior to Visit Medication Sig tirzepatide (MOUNJARO) 12.5 mg/0.5 mL pen injector Inject 12.5 mg subcutaneously one time a week. tirzepatide (MOUNJARO) 12.5 mg/0.5 mL pen injector Inject 12.5 mg subcutaneously one time a week. Phentermine HCl 37.5 mg capsule Take 1 capsule by mouth once daily for 90 days. BMI 30.57 ofloxacin (FLOXIN) 0.3 % otic solution Use 5 Drops in both ears once daily. colestipol (COLESTID) 1 gram tablet Take 1 tablet by mouth once daily. For Diarrhea Post Gall Bladder Removal pantoprazole DR (PROTONIX) 40 mg tablet Take 1 tablet by mouth two times a day. Take on empty stomach, 1/2 hr before meal. sucralfate (CARAFATE) 1 gram tablet Take 1 tablet by mouth before meals and at bedtime. EPINEPHrine (EPIPEN) 0.3 mg/0.3 mL auto-injector Use for allergic reaction metFORMIN ER (GLUCOPHAGE XR) 500 mg 24 hr tablet Take 1 tablet by mouth two times a day. levonorgestrel (KYLEENA) 17.5 mcg/24 hrs (5 yrs) 19.5 mg IUD 1 Each by INTRAUTERINE route one time only. flash glucose sensor (FREESTYLE EMILIA 14 DAY SENSOR) kit Apply and use as directed. Dx: Uncontrolled type 2 diabetes without insulin. flash glucose scanning reader (FREESTYLE EMILIA 3 READER) 1 Each once daily. Phenyleph-Shark Rcz-Fbxo-Bnm (HEMORRHOIDAL) 0.25-3-12 % crea by RECTAL route twice daily. Lancets lancets Test blood sugar(s)2 times daily. Dx: uncontrolled type 2 DM insulin needles, DISPOSABLE, (BD INSULIN PEN NEEDLE UF) 31 gauge x 5/16" use once daily as directed blood sugar diagnostic (BLOOD GLUCOSE TEST) test strip Test blood sugar(s) 2 times daily. Dx: uncontrolled type 2 DM No current facility-administered medications on file prior to visit. Social History Social History Tobacco Use Smoking status: Never Smokeless tobacco: Never Vaping Use Vaping status: Never Used Substance Use Topics Alcohol use: Yes Comment: Socially Drug use: Not Currently Types: Marijuana Review of Symptoms REVIEW OF SYSTEMS SEE HPI EXAM: BP 136/87 Pulse 85 Wt 85 kg (187 lb 6.3 oz) LMP 05/25/2024 (Exact Date) BMI 27.67 kg/m? General Appearance: Well appearing, alert, in no acute distress, well-hydrated, well nourished. Abdomen: Positive findings: tenderness moderate suprapubic, Right CVA tenderness with percussion. Health Maintenance List Depression Screening Never done Anxiety Screening Never done DTaP,Tdap,Td Vaccine(1 - Tdap) Never done Pneumococcal Vaccine(2 of 2 - PCV) due on 01/22/2017 Dilated Retinal Exam due on 03/17/2022 Urine Albumin:Creatinine Ratio due on 10/23/2023 Mammogram Screening Never done Diabetic Foot Exam due on 04/25/2024 LDL Cholesterol due on 06/01/2024 Influenza Vaccine(1) due on 09/13/2024 Covid-19 Vaccine( - season) due on 02/26/2025 HbA1C due on 07/12/2024 Annual PCP Team Chronic Disease Visit due on 02/26/2025 Cervical Cancer Screening due on 04/02/2027 Hepatitis C Screening Completed HIV (more content not included)... [facility] 07-06-2024 History of Presen t illness Narrative Chief Complaint Patient presents with: UTI: X 4 days HPI Candelaria Grant is a 39 year old female who presents here today for Above Complaints.. Patient presents for UTI symptoms and flank pain x4 days. Reports urinary frequency ad pain with urination, low back and abdominal pain, fever. Has been taking tylenol and ibuprofen. Past medical history, appointments, medications, allergies reviewed. Previous Medical History PAST MEDICAL HISTORY Diagnosis Date Abnormal Pap smear of cervix ascus cannot rule out high grade Diabetes mellitus type 2 in obese Gastroesophageal reflux disease without esophagitis Globus sensation Migraine headache Obesity Previous Surgical History PAST SURGICAL HISTORY Procedure Laterality Date SECTION HX 03/24/2013 CHOLECYSTECTOMY HX INSERTION OF IUD 2016 Mirena IUD removed 10/20/2020 KYLEENA IUD 10/20/2020 LYSIS OF ADHESIONS 07/04/2023 NEXPLANON INSERTION 05/10/2013 OSTECTOMY CALCANEUS SPUR W/WO PLNTAR FASCIAL RLS Left Dr. Jimenez REPAIR OF NASAL SEPTUM SALPINGECTOMY Bilateral 07/04/2023 Laparoscopic B/L Salpingectomy at [facility]-Dr. Condon Family History FAMILY HISTORY Problem Relation Age of Onset No Known Problems Mother Cancer Father pancreatic and renal. Anesthesia Problems Father slow emergence, PONV No Known Problems Brother No Known Problems Son Breast Cancer Maternal Aunt Cervical Cancer Paternal Aunt x2- and one cousin No Known Problems Maternal Grandmother Diabetes Maternal Grandfather Diabetes Paternal Grandfather other (lymphomia) Other maternal cousin other (leukemia) Other cousin Patient Allergies ALLERGIES Allergen Reactions Macadamia Nut Oil Hives, Swelling, Shortness of Breath Meloxicam Intolerance Headache Current Medications Current Outpatient Medications on File Prior to Visit Medication Sig tirzepatide (MOUNJARO) 12.5 mg/0.5 mL pen injector Inject 12.5 mg subcutaneously one time a week. tirzepatide (MOUNJARO) 12.5 mg/0.5 mL pen injector Inject 12.5 mg subcutaneously one time a week. Phentermine HCl 37.5 mg capsule Take 1 capsule by mouth once daily for 90 days. BMI 30.57 ofloxacin (FLOXIN) 0.3 % otic solution Use 5 Drops in both ears once daily. colestipol (COLESTID) 1 gram tablet Take 1 tablet by mouth once daily. For Diarrhea Post Gall Bladder Removal pantoprazole DR (PROTONIX) 40 mg tablet Take 1 tablet by mouth two times a day. Take on empty stomach, 1/2 hr before meal. sucralfate (CARAFATE) 1 gram tablet Take 1 tablet by mouth before meals and at bedtime. EPINEPHrine (EPIPEN) 0.3 mg/0.3 mL auto-injector Use for allergic reaction metFORMIN ER (GLUCOPHAGE XR) 500 mg 24 hr tablet Take 1 tablet by mouth two times a day. levonorgestrel (KYLEENA) 17.5 mcg/24 hrs (5 yrs) 19.5 mg IUD 1 Each by INTRAUTERINE route one time only. flash glucose sensor (FREESTYLE EMILIA 14 DAY SENSOR) kit Apply and use as directed. Dx: Uncontrolled type 2 diabetes without insulin. flash glucose scanning reader (FREESTYLE EMILIA 3 READER) 1 Each once daily. Phenyleph-Shark Mob-Pdqr-Ert (HEMORRHOIDAL) 0.25-3-12 % crea by RECTAL route twice daily. Lancets lancets Test blood sugar(s)2 times daily. Dx: uncontrolled type 2 DM insulin needles, DISPOSABLE, (BD INSULIN PEN NEEDLE UF) 31 gauge x 5/16" use once daily as directed blood sugar diagnostic (BLOOD GLUCOSE TEST) test strip Test blood sugar(s) 2 times daily. Dx: uncontrolled type 2 DM No current facility-administered medications on file prior to visit. Social History Social History Tobacco Use Smoking status: Never Smokeless tobacco: Never Vaping Use Vaping status: Never Used Substance Use Topics Alcohol use: Yes Comment: Socially Drug use: Not Currently Types: Marijuana Review of Symptoms REVIEW OF SYSTEMS SEE HPI EXAM: BP 136/87 Pulse 85 Wt 85 kg (187 lb 6.3 oz) LMP 05/25/2024 (Exact Date) BMI 27.67 kg/m General Appearance: Well appearing, alert, in no acute distress, well-hydrated, well nourished. Abdomen: Positive findings: tenderness moderate suprapubic, Right CVA tenderness with percussion. Health Maintenance List Depression Screening Never done Anxiety Screening Never done DTaP,Tdap,Td Vaccine(1 - Tdap) Never done Pneumococcal Vaccine(2 of 2 - PCV) due on 01/22/2017 Dilated Retinal Exam due on 03/17/2022 Urine Albumin:Creatinine Ratio due on 10/23/2023 Mammogram Screening Never done Diabetic Foot Exam due on 04/25/2024 LDL Cholesterol due on 06/01/2024 Influenza Vaccine(1) due on 09/13/2024 Covid-19 Vaccine( - 2023- season) due on 02/26/2025 HbA1C due on 07/12/2024 Annual PCP Team Chronic Disease Visit due on 02/26/2025 Cervical Cancer Screening due on 04/02/2027 Hepatitis C Screening Completed HIV Screening Completed Data reviewed Latest Ref Rng 07/06/2024 GLUCOSE UA (POCT) Negative mg/dL Negative BILIRUBIN UA (POCT) Negative Negative KETONE UA (POCT) Negative mg/dL Negative SPECIFIC GRAVITY UA (POCT) 1.005 - 1.030 1.010 HEMOGLOBIN/BLOOD UA (POCT) Negative Moderate ! PH UA (POCT) 4.5 - 8.0 7.0 PROTEIN UA (POCT) Negative mg/dL Negative UROBILINOGEN UA (POCT) Normal E.U./dL 0.2 NITRITE UA (POCT) Negative Negative LEUKOCYTES UA (POCT) Negative Small ! COLOR UA (POCT) Yellow CLARITY UA (POCT) Clear ASSESSMENT/PLAN: 1. Urinary tract infection symptoms - ICD9: 788.99, ICD10: R39.9 (primary diagnosis) - UA DIP, URINE (POC) - BACTERIAL CULTURE, URINE - SULFAMETHOXAZOLE 800 MG-TRIMETHOPRIM 160 MG TABLET 2. Flank pain - ICD9: 789.09, ICD10: R10.9 - Labs of Urine analysis - UA DIP, URINE (POC) - BACTERIAL CULTURE, URINE - SULFAMETHOXAZOLE 800 MG-TRIMETHOPRIM 160 MG TABLET Bree Montalvo APRN.GUM COOK documented in this encounter [facility] 07-06-2024 Telephone encounter Note Reason for call: urinary symptoms Outcome: Advised to SEE HCP (OR PCP TRIAGE) WITHIN 4 HOURS. Patient verbalized understanding and is agreeable to the plan. Transferred to [facility] at the appointment center for scheduling. GO TO THE EMERGENCY ROOM OR CALL 911 IF: * You develop any new symptoms * Your condition worsens * You are concerned or anxious about your condition for any other reason. If you have any questions, you can call Nurse vehicle fuel systems converter back. Reason for Disposition Side (flank) or lower back pain present Answer Assessment - Initial Assessment Questions 1. SYMPTOM: " Frequency and painful urination" 2. ONSET: "When did the Urinary frequency and pain start?" Friday07/03/2024 3. PAIN: "8/10, when she urinates 10/10" 4. CAUSE: UTI 5. OTHER SYMPTOMS: "Back pain, hip pain, painful urination,abdominal pain, fever, and states, she has been taking tylenol and ibuprofen" 6. : "Patient denies , tubal ligation" Protocols used: Urinary [id number] [facility] 07-06-2024 Miscellaneous Notes Reason for call: urinary symptoms Outcome: Advised to SEE HCP (OR PCP TRIAGE) WITHIN 4 HOURS. Patient verbalized understanding and is agreeable to the plan. Transferred to [facility] at the appointment center for scheduling. GO TO THE EMERGENCY ROOM OR CALL 911 IF: * You develop any new symptoms * Your condition worsens * You are concerned or anxious about your condition for any other reason. If you have any questions, you can call Nurse vehicle fuel systems converter back. Reason for Disposition Side (flank) or lower back pain present Answer Assessment - Initial Assessment Questions 1. SYMPTOM: " Frequency and painful urination" 2. ONSET: "When did the Urinary frequency and pain start?" Friday07/03/2024 3. PAIN: "10/24, when she urinates 12/24" 4. CAUSE: UTI 5. OTHER SYMPTOMS: "Back pain, hip pain, painful urination,abdominal pain, fever, and states, she has been taking tylenol and ibuprofen" 6. : "Patient denies , tubal ligation" Protocols used: Urinary [id number] documented in this encounter [facility] 06-28-2024 Telephone encounter Note Prescription Refill Information The patient has been identified by name and date of : Yes Caregiver verified no other encounters exist for this prescription request: Yes Caregiver confirmed with patient/requestor that no other refills are due, in the near future, with this provider at this time: No The last office visit in the department: 02/27/24 Does the patient have a future office visit with this provider/department: Yes Requested Prescriptions Pending Prescriptions Disp Refills tirzepatide (MOUNJARO) 12.5 mg/0.5 mL pen injector 2 mL 2 Sig: Inject 12.5 mg subcutaneously one time a week. Pat Godoy MA June 28, 2024 12:24 PM [facility] 06-28-2024 Miscellaneous Notes Prescription Refill Information The patient has been identified by name and date of : Yes Caregiver verified no other encounters exist for this prescription request: Yes Caregiver confirmed with patient/requestor that no other refills are due, in the near future, with this provider at this time: No The last office visit in the department: 02/27/24 Does the patient have a future office visit with this provider/department: Yes Requested Prescriptions Pending Prescriptions Disp Refills tirzepatide (MOUNJARO) 12.5 mg/0.5 mL pen injector 2 mL 2 Sig: Inject 12.5 mg subcutaneously one time a week. Pat Godoy MA June 28, 2024 12:24 PM Patient contacted pharmacy and requests refills as follows: Requested Prescriptions Pending Prescriptions Disp Refills tirzepatide (MOUNJARO) 12.5 mg/0.5 mL pen injector 2 mL 2 Sig: Inject 12.5 mg subcutaneously one time a week. The last encounter with Gigi Carrillo DO was 06/21/2024 RX INSTRUCTIONS: Patient aware RX will be sent to pharmacy. No need to notify patient. Patient has been identified by name and date of : Yes Britany Ortiz documented in this encounter [facility] 06-28-2024 Telephone encounter Note Patient contacted pharmacy and requests refills as follows: Requested Prescriptions Pending Prescriptions Disp Refills tirzepatide (MOUNJARO) 12.5 mg/0.5 mL pen injector 2 mL 2 Sig: Inject 12.5 mg subcutaneously one time a week. The last encounter with Gigi Carrillo DO was 06/21/2024 RX INSTRUCTIONS: Patient aware RX will be sent to pharmacy. No need to notify patient. Patient has been identified by name and date of : Yes Britany Ortiz [facility] 06-28-2024 Telephone encounter Note Prescription Refill Information The patient has been identified by name and date of : Yes Caregiver verified no other encounters exist for this prescription request: Yes Caregiver confirmed with patient/requestor that no other refills are due, in the near future, with this provider at this time: Yes The last office visit in the department: 02/27/24 Does the patient have a future office visit with this provider/department: Yes, 08/27/24 Requested Prescriptions Pending Prescriptions Disp Refills Phentermine HCl 37.5 mg capsule 30 capsule 2 Sig: Take 1 capsule by mouth once daily for 90 days. BMI 30.57 *Last rx written 05/28/24 #30 with 2 refills. Pt is not due for refill. MC message to pt advising of the same. Akil Guzman LPN June 28, 2024 11:59 AM [facility] 06-28-2024 Miscellaneous Notes Prescription Refill Information The patient has been identified by name and date of : Yes Caregiver verified no other encounters exist for this prescription request: Yes Caregiver confirmed with patient/requestor that no other refills are due, in the near future, with this provider at this time: Yes The last office visit in the department: 02/27/24 Does the patient have a future office visit with this provider/department: Yes, 08/27/24 Requested Prescriptions Pending Prescriptions Disp Refills Phentermine HCl 37.5 mg capsule 30 capsule 2 Sig: Take 1 capsule by mouth once daily for 90 days. BMI 30.57 *Last rx written 05/28/24 #30 with 2 refills. Pt is not due for refill. MC message to pt advising of the same. Akil Guzman LPN June 28, 2024 11:59 AM documented in this encounter [facility] 06-28-2024 Telephone encounter Note Prescription Refill Information The patient has been identified by name and date of : Yes Caregiver verified no other encounters exist for this prescription request: Yes Caregiver confirmed with patient/requestor that no other refills are due, in the near future, with this provider at this time: Yes The last office visit in the department: Visit date not found Does the patient have a future office visit with this provider/department: Yes Requested Prescriptions Pending Prescriptions Disp Refills tirzepatide (MOUNJARO) 12.5 mg/0.5 mL pen injector 2 mL 2 Sig: Inject 12.5 mg subcutaneously one time a week. Florecita Cartagena MA June 28, 2024 7:57 AM [facility] 06-28-2024 Miscellaneous Notes Prescription Refill Information The patient has been identified by name and date of : Yes Caregiver verified no other encounters exist for this prescription request: Yes Caregiver confirmed with patient/requestor that no other refills are due, in the near future, with this provider at this time: Yes The last office visit in the department: Visit date not found Does the patient have a future office visit with this provider/department: Yes Requested Prescriptions Pending Prescriptions Disp Refills tirzepatide (MOUNJARO) 12.5 mg/0.5 mL pen injector 2 mL 2 Sig: Inject 12.5 mg subcutaneously one time a week. Florecita Cartagena MA June 28, 2024 7:57 AM documented in this encounter [facility] 06-21-2024 Telephone encounter Note Prescription Refill Information The patient has been identified by name and date of : Yes Caregiver verified no other encounters exist for this prescription request: Yes Caregiver confirmed with patient/requestor that no other refills are due, in the near future, with this provider at this time: Yes The last office visit in the department: 02/27/24 Does the patient have a future office visit with this provider/department: Yes Requested Prescriptions Pending Prescriptions Disp Refills tirzepatide (MOUNJARO) 12.5 mg/0.5 mL pen injector 2 mL 2 Sig: Inject 12.5 mg subcutaneously one time a week. Jennifer Malhotra LPN June 21, 2024 9:48 AM [facility] 06-21-2024 Miscellaneous Notes Prescription Refill Information The patient has been identified by name and date of : Yes Caregiver verified no other encounters exist for this prescription request: Yes Caregiver confirmed with patient/requestor that no other refills are due, in the near future, with this provider at this time: Yes The last office visit in the department: 02/27/24 Does the patient have a future office visit with this provider/department: Yes Requested Prescriptions Pending Prescriptions Disp Refills tirzepatide (MOUNJARO) 12.5 mg/0.5 mL pen injector 2 mL 2 Sig: Inject 12.5 mg subcutaneously one time a week. Jennifer Malhotra LPN June 21, 2024 9:48 AM documented in this encounter [facility] 05-28-2024 Telephone encounter Note The following approved medication requests have been transmitted electronically. Requested Prescriptions Signed Prescriptions Disp Refills Phentermine HCl 37.5 mg capsule 30 capsule 2 Sig: Take 1 capsule by mouth once daily for 90 days. BMI 30.57 Authorizing Provider: ILANA HERRERA APRN.CNP PDMP website checked and validated. All prescriptions have been APPROPRIATELY filled. No suspicious activity was identified. 05/28/2024 by Ilana Herrera CNP. [facility] 05-28-2024 Miscellaneous Notes The following approved medication requests have been transmitted electronically. Requested Prescriptions Signed Prescriptions Disp Refills Phentermine HCl 37.5 mg capsule 30 capsule 2 Sig: Take 1 capsule by mouth once daily for 90 days. BMI 30.57 Authorizing Provider: ILANA HERRERA APRN.CNP PDMP website checked and validated. All prescriptions have been APPROPRIATELY filled. No suspicious activity was identified. 05/28/2024 by Ilana Herrera CNP. The patient has been identified by name and date of : Yes Caregiver verified no other encounters exist for this prescription request: Yes Caregiver confirmed with patient/requestor that no other refills are due, in the near future, with this provider at this time: Yes The last office visit in the department: 02/27/2024 Does the patient have a future office visit with this provider/department: Yes 08/27/2024 Requested Prescriptions Pending Prescriptions Disp Refills Phentermine HCl 37.5 mg capsule 30 capsule 2 Sig: Take 1 capsule by mouth once daily for 90 days. BMI 30.57 M Jeffrey Paige RN May 28, 2024 11:45 AM documented in this encounter [facility] 05-28-2024 Telephone encounter Note The patient has been identified by name and date of : Yes Caregiver verified no other encounters exist for this prescription request: Yes Caregiver confirmed with patient/requestor that no other refills are due, in the near future, with this provider at this time: Yes The last office visit in the department: 02/27/2024 Does the patient have a future office visit with this provider/department: Yes 08/27/2024 Requested Prescriptions Pending Prescriptions Disp Refills Phentermine HCl 37.5 mg capsule 30 capsule 2 Sig: Take 1 capsule by mouth once daily for 90 days. BMI 30.57 M Jeffrey Paige RN May 28, 2024 11:45 AM [facility] 05-25-2024 History of Presen t illness Narrative [facility] Subjective Candelaria Grant is a 39 year old female. Patient presents with: Cough: Chest congestion, nasal congestion, chest pain with deep breathing ad cough x 1 day Patient came in with complaints of head congestion cough. Patient says she has had it for a few weeks. Patient denies any shortness of breath or fever. The history is provided by the patient. No english language learner teacher was used. Cough Review of Systems Constitutional: Negative. HENT: Negative. Respiratory: Positive for cough. Objective BP 155/96 Pulse 89 Temp 36.3 C (97.4 F) Resp 20 Wt 88 kg (194 lb 0.1 oz) LMP 05/25/2024 (Exact Date) SpO2 100% BMI 28.65 kg/m Physical Exam Constitutional: Appearance: Normal appearance. HENT: Right Ear: Tympanic membrane, ear canal and external ear normal. Left Ear: Tympanic membrane, ear canal and external ear normal. Mouth/Throat: Mouth: Mucous membranes are moist. Eyes: Pupils: Pupils are equal, round, and reactive to light. Cardiovascular: Rate and Rhythm: Normal rate and regular rhythm. Heart sounds: Normal heart sounds. Pulmonary: Effort: Pulmonary effort is normal. Breath sounds: Normal breath sounds. Neurological: Mental Status: She is alert. ASSESSMENT/PLAN: 1. Rhinosinusitis - ICD9: 473.9, ICD10: J32.9 - Will begin treatment with as per antibiotic as written, see orders - DOXYCYCLINE HYCLATE 100 MG TABLET - FLUCONAZOLE 150 MG TABLET Catracho Wan APRN.[facility] History and Record Review External record(s) reviewed: no prior records. Differential Diagnoses - sinus infection is more likely for the following reason(s): suggested by H&P - pneumonia is less likely for the following reason(s): H&P not suggestive Disposition The patient was discharged. Procedures documented in this encounter [facility] 05-25-2024 Note HNO ID: [id number] Author: CATRACHO WAN APRN.[facility] Service: ? Author Type: Nurse Practitioner Type: Progress Notes Filed: 05/25/2024 18:10 Note Text: [facility] Subjective Candelaria Grant is a 39 year old female. Patient presents with: Cough: Chest congestion, nasal congestion, chest pain with deep breathing ad cough x 1 day Patient came in with complaints of head congestion cough. Patient says she has had it for a few weeks. Patient denies any shortness of breath or fever. The history is provided by the patient. No english language learner teacher was used. Cough Review of Systems Constitutional: Negative. HENT: Negative. Respiratory: Positive for cough. Objective BP 155/96 Pulse 89 Temp 36.3 ?C (97.4 ?F) Resp 20 Wt 88 kg (194 lb 0.1 oz) LMP 05/25/2024 (Exact Date) SpO2 100% BMI 28.65 kg/m? Physical Exam Constitutional: Appearance: Normal appearance. HENT: Right Ear: Tympanic membrane, ear canal and external ear normal. Left Ear: Tympanic membrane, ear canal and external ear normal. Mouth/Throat: Mouth: Mucous membranes are moist. Eyes: Pupils: Pupils are equal, round, and reactive to light. Cardiovascular: Rate and Rhythm: Normal rate and regular rhythm. Heart sounds: Normal heart sounds. Pulmonary: Effort: Pulmonary effort is normal. Breath sounds: Normal breath sounds. Neurological: Mental Status: She is alert. ASSESSMENT/PLAN: 1. Rhinosinusitis - ICD9: 473.9, ICD10: J32.9 - Will begin treatment with as per antibiotic as written, see orders - DOXYCYCLINE HYCLATE 100 MG TABLET - FLUCONAZOLE 150 MG TABLET Catracho Wan APRN.[facility] History and Record Review External record(s) reviewed: no prior records. Differential Diagnoses - sinus infection is more likely for the following reason(s): suggested by HANDP - pneumonia is less likely for the following reason(s): HANDP not suggestive Disposition The patient was discharged. Procedures [facility] 05-18-2024 Note Patient Outreach (FA MPWS) CANDELARIA GRANT ([id number]) 1985 F Date Time Provider Department 05/18/24 GIGI CARRILLO During your visit today, we recorded the following information about you: Allergies As of Date: 05/18/2024 Noted Allergy Reaction MACADAMIA NUT OIL 04/08/2014 4 - Hives 7 - Swelling 12 - Shortness of Breath MELOXICAM 08/30/2015 5 - Intolerance Comments: Headache Date Reviewed: 05/06/2024 Reviewed by: Levar, Dawna, RAGMAN - Fully Assessed Visit Diagnosis:Encounter for screening mammogram for breast cancer [Z12.31] Order(s):[facility] SCREENING [facility]ADEN [[id number]] Order #: [id number] FUTURE Prescriptions as of 06/18/2024 - Phentermine HCl 37.5 mg capsule Take 1 capsule by mouth once daily for 90 days. BMI 30.57 - ofloxacin (FLOXIN) 0.3 % otic solution Use 5 Drops in both ears once daily. - tirzepatide (MOUNJARO) 12.5 mg/0.5 mL pen injector Inject 12.5 mg subcutaneously one time a week. - colestipol (COLESTID) 1 gram tablet Take 1 tablet by mouth once daily. For Diarrhea Post Gall Bladder Removal - pantoprazole DR (PROTONIX) 40 mg tablet Take 1 tablet by mouth two times a day. Take on empty stomach, 1/2 hr before meal. - sucralfate (CARAFATE) 1 gram tablet Take 1 tablet by mouth before meals and at bedtime. - EPINEPHrine (EPIPEN) 0.3 mg/0.3 mL auto-injector Use for allergic reaction - metFORMIN ER (GLUCOPHAGE XR) 500 mg 24 hr tablet Take 1 tablet by mouth two times a day. - levonorgestrel (KYLEENA) 17.5 mcg/24 hrs (5 yrs) 19.5 mg IUD 1 Each by INTRAUTERINE route one time only. - flash glucose sensor (FREESTYLE EMILIA 14 DAY SENSOR) kit Apply and use as directed. Dx: Uncontrolled type 2 diabetes without insulin. - flash glucose scanning reader (FREESTYLE EMILIA 3 READER) 1 Each once daily. - Phenyleph-Shark Jrp-Usme-Xhz (HEMORRHOIDAL) 0.25-3-12 % crea by RECTAL route twice daily. - Lancets lancets Test blood sugar(s)2 times daily. Dx: uncontrolled type 2 DM - insulin needles, DISPOSABLE, (BD INSULIN PEN NEEDLE UF) 31 gauge x 5/16" use once daily as directed - blood sugar diagnostic (BLOOD GLUCOSE TEST) test strip Test blood sugar(s) 2 times daily. Dx: uncontrolled type 2 DM Problem List As Of Date 05/18/2024 Noted Resolved History of gestational diabetes [Z86.32] 02/15/2014 Depressed mood [R45.89] 02/15/2014 Headache [R51] 02/15/2014 10/17/2015 Impaired glucose metabolism [R73.09] 02/15/2014 10/17/2015 Family history of ovarian cancer [Z80.41] 06/13/2014 BMI 38.0-38.9,adult [Z68.38] 06/28/2014 Migraine headache [G43.909] 09/21/2014 Functional diarrhea [K59.1] 09/19/2015 Uncontrolled type 2 diabetes mellitus without c*10/17/2015 Rectal bleeding [K62.5] 05/14/2017 LUQ abdominal pain [R10.12] 05/14/2017 Altered bowel habits [R19.4] 05/14/2017 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 Acute otitis externa of left ear, unspecified type - ICD9: 380.10, ICD10: H60.502 (primary diagnosis) - OFLOXACIN 0.3 % EAR DROPS 2. Acute right-sided low back pain with right-sided sciatica - ICD9: 724.2, 724.3, ICD10: M54.41 Sciatica - Ice for localized tenderness - Muscle relaxant- see orders - UA today negative - Patient given instructions use of medications as ordered, intermittent rest, and intermittent use of heat - PREDNISONE 10 MG TABLET - CYCLOBENZAPRINE 10 MG TABLET SCIATICA: Your exam shows you have sciatica, a condition most often seen in patients with disc disease of the lower back. Sciatica causes pain to radiate from the lower back or buttock area down the leg. It results from pressure on nerve roots coming out of the spine when a disc deteriorates and pushes to one side. Often there is a history of back problems. In most cases sciatica improves greatly with conservative treatment. Most patients with it are completely better after 2-4 weeks of bed rest and other supportive care. Bed rest reduces the disc pressure greatly; sitting is the worst position since the pressure on the disc is over 5 times greater than it is while lying down. You should avoid bending, lifting, and all other activities which make the problem worse. After the pain improves, you may continue with normal activity, taking brief periods for bed rest throughout the day until you are back to normal. Aspirin, ibuprofen, or other anti-inflammatory drugs are often used to help control pain. Muscle relaxants may help by relieving spasm and providing mild sedation. Cold or heat therapy and massage may also give significant relief. Spinal manipulation is not recommended because it can increase the degree of disc protrusion. Surgery is reserved for patients that do not improve with conservative treatment, or who have signs of severe nerve root pressure. You should see your doctor for follow up care as recommended. A program for back injury rehabilitation with stretching and strengthening exercises is an important part of management. Please call your doctor, a back specialist, or the emergency room right away if you notice increased pain, weakness, or numbness in your legs, or if you have any difficulty with bladder or bowel control. documented in this encounter [facility] 05-06-2024 Note HNO ID: [id number] Author: YAQUELIN TA APRN.[facility] Service: ? Author Type: Nurse Practitioner Type: Progress Notes Filed: 05/06/2024 18:35 Note Text: Subjective Back Pain Pertinent negatives include no fever, no abdominal pain and no dysuria. Ear Pain Pertinent negatives include no abdominal pain, chills, fever, nausea, sore throat or vomiting. Pt is a 39 y/o female who presents with R sided low back sharp shooting pain x 2 days and left ear pain x 1 week. Pt reports back pain as intermittent 10/10 sharp back pain that shoots up the back. Denies injury to her back. States she lifts heavy items at work. Pt also reports that left ear has been bothering her for a week and reports having impacted cerumen in the canal. No fevers, body aches or chills reported. Review of Systems Constitutional: Negative for chills, fever and malaise/fatigue. HENT: Positive for ear pain. Negative for ear discharge, sinus pain and sore throat. Respiratory: Negative. Cardiovascular: Negative. Gastrointestinal: Negative for abdominal pain, diarrhea, nausea and vomiting. Genitourinary: Negative for dysuria, flank pain, frequency and urgency. Musculoskeletal: Positive for back pain. BP 159/96 Pulse 79 Temp 36.8 ?C (98.2 ?F) Resp 20 Wt 89 kg (196 lb 3.4 oz) LMP 2024 (Within Days) SpO2 100% BMI 28.98 kg/m? PAST MEDICAL HISTORY Diagnosis Date Abnormal Pap smear of cervix ascus cannot rule out high grade Diabetes mellitus type 2 in obese Gastroesophageal reflux disease without esophagitis Globus sensation Migraine headache Obesity PAST SURGICAL HISTORY Procedure Laterality Date SECTION HX 03/24/2013 CHOLECYSTECTOMY HX INSERTION OF IUD 2016 Mirena IUD removed 10/20/2020 KYLEENA IUD 10/20/2020 LYSIS OF ADHESIONS 07/04/2023 NEXPLANON INSERTION 05/10/2013 OSTECTOMY CALCANEUS SPUR W/WO PLNTAR FASCIAL RLS Left Dr. Jimenez REPAIR OF NASAL SEPTUM SALPINGECTOMY Bilateral 07/04/2023 Laparoscopic B/L Salpingectomy at [facility]-Dr. Condon ALLERGIES Macadamia Nut Oil and Meloxicam MEDICATIONS tirzepatide (MOUNJARO) 12.5 mg/0.5 mL pen injector Inject 12.5 mg subcutaneously one time a week. colestipol (COLESTID) 1 gram tablet Take 1 tablet by mouth once daily. For Diarrhea Post Gall Bladder Removal pantoprazole DR (PROTONIX) 40 mg tablet Take 1 tablet by mouth two times a day. Take on empty stomach, 1/2 hr before meal. sucralfate (CARAFATE) 1 gram tablet Take 1 tablet by mouth before meals and at bedtime. Phentermine HCl 37.5 mg capsule Take 1 capsule by mouth once daily for 90 days. BMI 30.57 EPINEPHrine (EPIPEN) 0.3 mg/0.3 mL auto-injector Use for allergic reaction metFORMIN ER (GLUCOPHAGE XR) 500 mg 24 hr tablet Take 1 tablet by mouth two times a day. levonorgestrel (KYLEENA) 17.5 mcg/24 hrs (5 yrs) 19.5 mg IUD 1 Each by INTRAUTERINE route one time only. flash glucose sensor (FREESTYLE EMILIA 14 DAY SENSOR) kit Apply and use as directed. Dx: Uncontrolled type 2 diabetes without insulin. flash glucose scanning reader (FREESTYLE EMILIA 3 READER) 1 Each once daily. Lancets lancets Test blood sugar(s)2 times daily. Dx: uncontrolled type 2 DM insulin needles, DISPOSABLE, (BD INSULIN PEN NEEDLE UF) 31 gauge x 5/16" use once daily as directed blood sugar diagnostic (BLOOD GLUCOSE TEST) test strip Test blood sugar(s) 2 times daily. Dx: uncontrolled type 2 DM ofloxacin (FLOXIN) 0.3 % otic solution Use 5 Drops in both ears once daily. predniSONE (DELTASONE) 10 mg tablet Take 4 tabs daily for 3 days, then 2 tabs daily for 3 days, then 1 tab daily for 3 days with food. cyclobenzaprine (FLEXERIL) 10 mg tablet Take 1 tablet by mouth at bedtime as needed for muscle spasm for up to 6 days. Phenyleph-Shark Ckk-Knfb-Uek (HEMORRHOIDAL) 0.25-3-12 % crea by RECTAL route twice daily. FAMILY HISTORY Problem Relation Age of Onset No Known Problems Mother Cancer Father pancreatic and renal. Anesthesia Problems Father slow emergence, PONV No Known Problems Brother No Known Problems Son Breast Cancer Maternal Aunt Cervical Cancer Paternal Aunt x2- and one cousin No Known Problems Maternal Grandmother Diabetes Maternal Grandfather Diabetes Paternal Grandfather other (lymphomia) Other maternal cousin other (leukemia) Other cousin Social History Tobacco Use Smoking status: Never Smokeless tobacco: Never Vaping Use Vaping status: Never Used Substance Use Topics Alcohol use: Yes Comment: Socially Drug use: Not Currently Types: Marijuana Objective Physical Exam Constitutional: General: She is awake. HENT: Head: Normocephalic. Right Ear: Hearing and tympanic membrane normal. Left Ear: Tenderness present. Ears: Comments: Erythematous L ear canal Nose: Nose normal. Mouth/Throat: Mouth: Mucous membranes are moist. Pharynx: Oropharynx is clear. Cardiovascular: Rate and Rhythm: Normal rate and regular (more content not included)... [facility] 05-06-2024 History of Presen t illness Narrative Images from the original note were not included. Subjective Back Pain Pertinent negatives include no fever, no abdominal pain and no dysuria. Ear Pain Pertinent negatives include no abdominal pain, chills, fever, nausea, sore throat or vomiting. Pt is a 39 y/o female who presents with R sided low back sharp shooting pain x 2 days and left ear pain x 1 week. Pt reports back pain as intermittent 10/10 sharp back pain that shoots up the back. Denies injury to her back. States she lifts heavy items at work. Pt also reports that left ear has been bothering her for a week and reports having impacted cerumen in the canal. No fevers, body aches or chills reported. Review of Systems Constitutional: Negative for chills, fever and malaise/fatigue. HENT: Positive for ear pain. Negative for ear discharge, sinus pain and sore throat. Respiratory: Negative. Cardiovascular: Negative. Gastrointestinal: Negative for abdominal pain, diarrhea, nausea and vomiting. Genitourinary: Negative for dysuria, flank pain, frequency and urgency. Musculoskeletal: Positive for back pain. BP 159/96 Pulse 79 Temp 36.8 C (98.2 F) Resp 20 Wt 89 kg (196 lb 3.4 oz) LMP 2024 (Within Days) SpO2 100% BMI 28.98 kg/m PAST MEDICAL HISTORY Diagnosis Date Abnormal Pap smear of cervix ascus cannot rule out high grade Diabetes mellitus type 2 in obese Gastroesophageal reflux disease without esophagitis Globus sensation Migraine headache Obesity PAST SURGICAL HISTORY Procedure Laterality Date SECTION HX 03/24/2013 CHOLECYSTECTOMY HX INSERTION OF IUD 2017 Mirena IUD removed 10/20/2020 KYLEENA IUD 10/20/2020 LYSIS OF ADHESIONS 07/04/2023 NEXPLANON INSERTION 05/10/2013 OSTECTOMY CALCANEUS SPUR W/WO PLNTAR FASCIAL RLS Left Dr. Jimenez REPAIR OF NASAL SEPTUM SALPINGECTOMY Bilateral 07/04/2023 Laparoscopic B/L Salpingectomy at [facility]-Dr. Condon ALLERGIES Macadamia Nut Oil and Meloxicam MEDICATIONS tirzepatide (MOUNJARO) 12.5 mg/0.5 mL pen injector Inject 12.5 mg subcutaneously one time a week. colestipol (COLESTID) 1 gram tablet Take 1 tablet by mouth once daily. For Diarrhea Post Gall Bladder Removal pantoprazole DR (PROTONIX) 40 mg tablet Take 1 tablet by mouth two times a day. Take on empty stomach, 1/2 hr before meal. sucralfate (CARAFATE) 1 gram tablet Take 1 tablet by mouth before meals and at bedtime. Phentermine HCl 37.5 mg capsule Take 1 capsule by mouth once daily for 90 days. BMI 30.57 EPINEPHrine (EPIPEN) 0.3 mg/0.3 mL auto-injector Use for allergic reaction metFORMIN ER (GLUCOPHAGE XR) 500 mg 24 hr tablet Take 1 tablet by mouth two times a day. levonorgestrel (KYLEENA) 17.5 mcg/24 hrs (5 yrs) 19.5 mg IUD 1 Each by INTRAUTERINE route one time only. flash glucose sensor (HealthQxSTYLE EMILIA 14 DAY SENSOR) kit Apply and use as directed. Dx: Uncontrolled type 2 diabetes without insulin. flash glucose scanning reader (FREESTYLE EMILIA 3 READER) 1 Each once daily. Lancets lancets Test blood sugar(s)2 times daily. Dx: uncontrolled type 2 DM insulin needles, DISPOSABLE, (BD INSULIN PEN NEEDLE UF) 31 gauge x 5/16" use once daily as directed blood sugar diagnostic (BLOOD GLUCOSE TEST) test strip Test blood sugar(s) 2 times daily. Dx: uncontrolled type 2 DM ofloxacin (FLOXIN) 0.3 % otic solution Use 5 Drops in both ears once daily. predniSONE (DELTASONE) 10 mg tablet Take 4 tabs daily for 3 days, then 2 tabs daily for 3 days, then 1 tab daily for 3 days with food. cyclobenzaprine (FLEXERIL) 10 mg tablet Take 1 tablet by mouth at bedtime as needed for muscle spasm for up to 6 days. Phenyleph-Shark Tdh-Giri-Zzo (HEMORRHOIDAL) 0.25-3-12 % crea by RECTAL route twice daily. FAMILY HISTORY Problem Relation Age of Onset No Known Problems Mother Cancer Father pancreatic and renal. Anesthesia Problems Father slow emergence, PONV No Known Problems Brother No Known Problems Son Breast Cancer Maternal Aunt Cervical Cancer Paternal Aunt x2- and one cousin No Known Problems Maternal Grandmother Diabetes Maternal Grandfather Diabetes Paternal Grandfather other (lymphomia) Other maternal cousin other (leukemia) Other cousin Social History Tobacco Use Smoking status: Never Smokeless tobacco: Never Vaping Use Vaping status: Never Used Substance Use Topics Alcohol use: Yes Comment: Socially Drug use: Not Currently Types: Marijuana Objective Physical Exam Constitutional: General: She is awake. HENT: Head: Normocephalic. Right Ear: Hearing and tympanic membrane normal. Left Ear: Tenderness present. Ears: Comments: Erythematous L ear canal Nose: Nose normal. Mouth/Throat: Mouth: Mucous membranes are moist. Pharynx: Oropharynx is clear. Cardiovascular: Rate and Rhythm: Normal rate and regular rhythm. Pulmonary: Effort: Pulmonary effort is normal. Breath sounds: Normal breath sounds. Musculoskeletal: Lumbar back: Spasms and tenderness present. Negative right straight leg raise test and negative left straight leg raise test. Legs: Neurological: Mental Status: She is alert. ASSESSMENT/PLAN: 1. Acute otitis externa of left ear, unspecified type - ICD9: 380.10, ICD10: H60.502 (primary diagnosis) - OFLOXACIN 0.3 % EAR DROPS 2. Acute right-sided low back pain with right-sided sciatica - ICD9: 724.2, 724.3, ICD10: M54.41 Sciatica - Ice for localized tenderness - Muscle relaxant- see orders - UA today negative - Patient given instructions use of medications as ordered, intermittent rest, and intermittent use of heat - PREDNISONE 10 MG TABLET - CYCLOBENZAPRINE 10 MG TABLET Sharda Allen TEACHING PROVIDER (Physician/PA/MUCK BOSS) NOTE OF PERSONAL INVOLVEMENT IN CARE: I have personally seen and examined the patient and performed the medical decision-making components. I have reviewed the Advanced Practice Registered Nurse (MUCK BOSS) Student's documentation and verified the findings in the note as written. Any additions or changes are noted in bold/italics. Signature: Yaquelin Ta Date: 05/06/2024 Time: 6:32 PM documented in this encounter [facility] 03-29-2024 Telephone encounter Note Pt notified she has refills available at the Pharmacy and needs to contact them in order to obtain refills. Also made pt aware she needs to schedule a 3 month weight check on/before 05/19/24 to continue being Rx'd Adipex. Macy Espinal MA [facility] 03-29-2024 Miscellaneous Notes Pt notified she has refills available at the Pharmacy and needs to contact them in order to obtain refills. Also made pt aware she needs to schedule a 3 month weight check on/before 05/19/24 to continue being Rx'd Adipex. Macy Espinal MA documented in this encounter [facility] 03-28-2024 Note HNO ID: [id number] Author: ANKUR MATIAS APRN.[facility] Service: ? Author Type: Nurse Practitioner Type: Progress Notes Filed: 03/28/2024 15:28 Note Text: Subjective HPI Nontoxic-appearing female presents urgent care chief complaint possible UTI. Duration of symptoms 2 days. Associated symptoms urinary frequency and dysuria. History of UTIs this is similar. Denies any fevers vomiting abdominal pain. No OTC medication use. No vaginal discharge or itching. Denies chance of . Past medical history prescription medications allergies reviewed. Additional complaint rash around eyes. Has been present for a couple months. States this is itchy. Is not painful. No flashes light floaters. No visual acuity changes. No eye trauma or foreign body sensation. Last menstrual cycle 03/09/2024. .Patient presents with: Rash: Around eyes UTI: Frequency and burning x2 days PAST MEDICAL HISTORY Diagnosis Date Abnormal Pap smear of cervix ascus cannot rule out high grade Diabetes mellitus type 2 in obese Gastroesophageal reflux disease without esophagitis Globus sensation Migraine headache Obesity PAST SURGICAL HISTORY Procedure Laterality Date SECTION HX 03/24/2013 CHOLECYSTECTOMY HX INSERTION OF IUD 2017 Mirena IUD removed 10/20/2020 KYLEENA IUD 10/20/2020 LYSIS OF ADHESIONS 07/04/2023 NEXPLANON INSERTION 05/10/2013 OSTECTOMY CALCANEUS SPUR W/WO PLNTAR FASCIAL RLS Left Dr. Jimenez REPAIR OF NASAL SEPTUM SALPINGECTOMY Bilateral 07/04/2023 Laparoscopic B/L Salpingectomy at [facility]-Dr. Condon ALLERGIES Macadamia Nut Oil and Meloxicam MEDICATIONS tirzepatide (MOUNJARO) 12.5 mg/0.5 mL pen injector Inject 12.5 mg subcutaneously one time a week. (Patient not taking: Reported on 03/28/2024) colestipol (COLESTID) 1 gram tablet Take 1 tablet by mouth once daily. For Diarrhea Post Gall Bladder Removal pantoprazole DR (PROTONIX) 40 mg tablet Take 1 tablet by mouth two times a day. Take on empty stomach, 1/2 hr before meal. sucralfate (CARAFATE) 1 gram tablet Take 1 tablet by mouth before meals and at bedtime. (Patient not taking: Reported on 03/01/2024) Phentermine HCl 37.5 mg capsule Take 1 capsule by mouth once daily for 90 days. BMI 30.57 (Patient not taking: Reported on 03/28/2024) EPINEPHrine (EPIPEN) 0.3 mg/0.3 mL auto-injector Use for allergic reaction metFORMIN ER (GLUCOPHAGE XR) 500 mg 24 hr tablet Take 1 tablet by mouth two times a day. levonorgestrel (KYLEENA) 17.5 mcg/24 hrs (5 yrs) 19.5 mg IUD 1 Each by INTRAUTERINE route one time only. flash glucose sensor (FREESTYLE EMILIA 14 DAY SENSOR) kit Apply and use as directed. Dx: Uncontrolled type 2 diabetes without insulin. flash glucose scanning reader (FREESTYLE EMILIA 3 READER) 1 Each once daily. Phenyleph-Shark Nel-Tjbm-Ulc (HEMORRHOIDAL) 0.25-3-12 % crea by RECTAL route twice daily. Lancets lancets Test blood sugar(s)2 times daily. Dx: uncontrolled type 2 DM insulin needles, DISPOSABLE, (BD INSULIN PEN NEEDLE UF) 31 gauge x 5/16" use once daily as directed blood sugar diagnostic (BLOOD GLUCOSE TEST) test strip Test blood sugar(s) 2 times daily. Dx: uncontrolled type 2 DM FAMILY HISTORY Problem Relation Age of Onset No Known Problems Mother Cancer Father pancreatic and renal. Anesthesia Problems Father slow emergence, PONV No Known Problems Brother No Known Problems Son Breast Cancer Maternal Aunt Cervical Cancer Paternal Aunt x2- and one cousin No Known Problems Maternal Grandmother Diabetes Maternal Grandfather Diabetes Paternal Grandfather other (lymphomia) Other maternal cousin other (leukemia) Other cousin Social History Tobacco Use Smoking status: Never Smokeless tobacco: Never Vaping Use Vaping status: Never Used Substance Use Topics Alcohol use: Yes Comment: Socially Drug use: Not Currently Types: Marijuana BP 165/93 Pulse 86 Temp 36.8 ?C (98.3 ?F) Resp 18 Wt 89 kg (196 lb 3.4 oz) LMP 03/09/2024 (Within Days) SpO2 100% BMI 28.98 kg/m? Review of Systems Constitutional: Negative for chills, fever and malaise/fatigue. HENT: Negative for congestion, ear discharge, ear pain, sinus pain and sore throat. Eyes: Negative for blurred vision, pain, discharge and redness. Respiratory: Negative for cough, hemoptysis, sputum production, shortness of breath, wheezing and stridor. Cardiovascular: Negative for chest pain. Gastrointestinal: Negative for abdominal pain, constipation, diarrhea, nausea and vomiting. Genitourinary: Positive for dysuria, frequency and urgency. Negative for flank pain and hematuria. Musculoskeletal: Negative for myalgias. Skin: Positive for itching and rash. Neurological: Negative for dizziness and headaches. Objective Physical Exam Constitutional: General: She is not in acute distress. Appearance: She is not diaphoretic. HENT: Head: Normocephalic. Jaw: No trismus, tenderness, swelling or anel (more content not included)... [facility] 03-28-2024 History of Presen t illness Narrative Subjective HPI Nontoxic-appearing female presents urgent care chief complaint possible UTI. Duration of symptoms 2 days. Associated symptoms urinary frequency and dysuria. History of UTIs this is similar. Denies any fevers vomiting abdominal pain. No OTC medication use. No vaginal discharge or itching. Denies chance of . Past medical history prescription medications allergies reviewed. Additional complaint rash around eyes. Has been present for a couple months. States this is itchy. Is not painful. No flashes light floaters. No visual acuity changes. No eye trauma or foreign body sensation. Last menstrual cycle 03/09/2024. .Patient presents with: Rash: Around eyes UTI: Frequency and burning x2 days PAST MEDICAL HISTORY Diagnosis Date Abnormal Pap smear of cervix ascus cannot rule out high grade Diabetes mellitus type 2 in obese Gastroesophageal reflux disease without esophagitis Globus sensation Migraine headache Obesity PAST SURGICAL HISTORY Procedure Laterality Date SECTION HX 03/24/2013 CHOLECYSTECTOMY HX INSERTION OF IUD 2017 Mirena IUD removed 10/20/2020 KYLEENA IUD 10/20/2020 LYSIS OF ADHESIONS 07/04/2023 NEXPLANON INSERTION 05/10/2013 OSTECTOMY CALCANEUS SPUR W/WO PLNTAR FASCIAL RLS Left Dr. Jimenez REPAIR OF NASAL SEPTUM SALPINGECTOMY Bilateral 07/04/2023 Laparoscopic B/L Salpingectomy at [facility]-Dr. Condon ALLERGIES Macadamia Nut Oil and Meloxicam MEDICATIONS tirzepatide (MOUNJARO) 12.5 mg/0.5 mL pen injector Inject 12.5 mg subcutaneously one time a week. (Patient not taking: Reported on 03/28/2024) colestipol (COLESTID) 1 gram tablet Take 1 tablet by mouth once daily. For Diarrhea Post Gall Bladder Removal pantoprazole DR (PROTONIX) 40 mg tablet Take 1 tablet by mouth two times a day. Take on empty stomach, 1/2 hr before meal. sucralfate (CARAFATE) 1 gram tablet Take 1 tablet by mouth before meals and at bedtime. (Patient not taking: Reported on 03/01/2024) Phentermine HCl 37.5 mg capsule Take 1 capsule by mouth once daily for 90 days. BMI 30.57 (Patient not taking: Reported on 03/28/2024) EPINEPHrine (EPIPEN) 0.3 mg/0.3 mL auto-injector Use for allergic reaction metFORMIN ER (GLUCOPHAGE XR) 500 mg 24 hr tablet Take 1 tablet by mouth two times a day. levonorgestrel (KYLEENA) 17.5 mcg/24 hrs (5 yrs) 19.5 mg IUD 1 Each by INTRAUTERINE route one time only. flash glucose sensor (FREESTYLE EMILIA 14 DAY SENSOR) kit Apply and use as directed. Dx: Uncontrolled type 2 diabetes without insulin. flash glucose scanning reader (FREESTYLE EMILIA 3 READER) 1 Each once daily. Phenyleph-Shark Hqt-Hopl-Wfa (HEMORRHOIDAL) 0.25-3-12 % crea by RECTAL route twice daily. Lancets lancets Test blood sugar(s)2 times daily. Dx: uncontrolled type 2 DM insulin needles, DISPOSABLE, (BD INSULIN PEN NEEDLE UF) 31 gauge x 5/16" use once daily as directed blood sugar diagnostic (BLOOD GLUCOSE TEST) test strip Test blood sugar(s) 2 times daily. Dx: uncontrolled type 2 DM FAMILY HISTORY Problem Relation Age of Onset No Known Problems Mother Cancer Father pancreatic and renal. Anesthesia Problems Father slow emergence, PONV No Known Problems Brother No Known Problems Son Breast Cancer Maternal Aunt Cervical Cancer Paternal Aunt x2- and one cousin No Known Problems Maternal Grandmother Diabetes Maternal Grandfather Diabetes Paternal Grandfather other (lymphomia) Other maternal cousin other (leukemia) Other cousin Social History Tobacco Use Smoking status: Never Smokeless tobacco: Never Vaping Use Vaping status: Never Used Substance Use Topics Alcohol use: Yes Comment: Socially Drug use: Not Currently Types: Marijuana BP 165/93 Pulse 86 Temp 36.8 C (98.3 F) Resp 18 Wt 89 kg (196 lb 3.4 oz) LMP 03/09/2024 (Within Days) SpO2 100% BMI 28.98 kg/m Review of Systems Constitutional: Negative for chills, fever and malaise/fatigue. HENT: Negative for congestion, ear discharge, ear pain, sinus pain and sore throat. Eyes: Negative for blurred vision, pain, discharge and redness. Respiratory: Negative for cough, hemoptysis, sputum production, shortness of breath, wheezing and stridor. Cardiovascular: Negative for chest pain. Gastrointestinal: Negative for abdominal pain, constipation, diarrhea, nausea and vomiting. Genitourinary: Positive for dysuria, frequency and urgency. Negative for flank pain and hematuria. Musculoskeletal: Negative for myalgias. Skin: Positive for itching and rash. Neurological: Negative for dizziness and headaches. Objective Physical Exam Constitutional: General: She is not in acute distress. Appearance: She is not diaphoretic. HENT: Head: Normocephalic. Jaw: No trismus, tenderness, swelling or pain on movement. Mouth/Throat: Mouth: Mucous membranes are moist. Pharynx: Oropharynx is clear. Uvula midline. No pharyngeal swelling, oropharyngeal exudate, posterior oropharyngeal erythema or uvula swelling. Eyes: General: Lids are normal. Vision grossly intact. Right eye: No discharge or hordeolum. Left eye: No discharge or hordeolum. Conjunctiva/sclera: Conjunctivae normal. Right eye: Right conjunctiva is not injected. No exudate. Left eye: Left conjunctiva is not injected. No exudate. Pupils: Pupils are equal, round, and reactive to light. Comments: No evidence of bacterial infection. No evidence of orbital periorbital cellulitis. No vesicles. Slight erythematous rash noted to the corner of eyes bilaterally. Cardiovascular: Rate and Rhythm: Normal rate and regular rhythm. Heart sounds: Normal heart sounds. Pulmonary: Effort: Pulmonary effort is normal. No tachypnea, accessory muscle usage or respiratory distress. Breath sounds: Normal breath sounds. No stridor. No wheezing, rhonchi or rales. Abdominal: General: There is no distension. Palpations: Abdomen is soft. Tenderness: There is no abdominal tenderness. There is no guarding or rebound. Musculoskeletal: Cervical back: Normal range of motion and neck supple. No edema, erythema, rigidity or tenderness. No pain with movement. Normal range of motion. Lymphadenopathy: Cervical: No cervical adenopathy. Skin: General: Skin is warm and dry. Neurological: Mental Status: She is alert and oriented to person, place, and time. ASSESSMENT/PLAN: 1. Urinary frequency - ICD9: 788.41, ICD10: R35.0 (primary diagnosis) - UA DIP, URINE (POC) - BACTERIAL CULTURE, URINE - GONORRHEA/CHLAMYDIA NAAT - MARCELO/TRICHOMONAS NAAT - BACTERIAL VAGINOSIS NAAT - GLUCOSE, BLOOD (POC) 2. Rash - ICD9: 782.1, ICD10: R21 Urine dip negative other than glucose. Small amount of bilirubin noted. Fingerstick glucose today in office of 131. no antibiotics today. Vaginal self swabs obtained. Treat accordingly culture results. Additionally diagnosed with rash. Will use Zyrtec. Suspicious of eczema. Will follow-up with dermatology. Patient was educated on supportive therapies. Patient will follow up with primary care provider as needed. Patient was instructed to immediately proceed to emergency room for any new, worsening, or symptoms lasting longer than anticipated. The patient's clinical presentation is otherwise unremarkable at this time. Based on exam and clinical finding, the patient is stable for discharge. Plan of care was discussed with patient. Patient verbalizes understanding and agrees to plan of care. This note was generated using Alo7 software. It may contain errors in wording, punctuation, or spelling. Ankur Matias APRN.[employer] documented in this encounter [facility] 03-01-2024 Telephone encounter Note 04-01-2024 E[facility] [place] provider went over all information and gave direct number to call Akil Liu [facility] 03-01-2024 Miscellaneous Notes 04-01-2024 EGD [place] provider went over all information and gave direct number to call Akil Liu documented in this encounter [facility] 03-01-2024 Note Addended by: TORI MADDOX on: 03/01/2024 03:07 PM Modules accepted: Orders [facility] 03-01-2024 Miscellaneous Notes Addended by: TORI MADDOX on: 03/01/2024 03:07 PM Modules accepted: Orders documented in this encounter [facility] 03-01-2024 Note HNO ID: [id number] Author: SHANNAN ERICKSON LPN Service: ? Author Type: LICENSED NURSE Type: Progress Notes Filed: 03/01/2024 14:25 Note Text: REVIEW OF SYSTEMS: General: The patient denies fatigue, denies weight loss, denies weight gain, denies feeling hot, and denies feelings of cold. Eyes: The patient denies glaucoma, denies eye injury/surgery, does not wear glasses or contacts. Ear/Nose/Throat: The patient notes allergies, denies hayfever, notes ear infections, and notes bloody noses. Cardiovascular: The patient denies chest pain, denies heart disease, denies high blood pressure,denies cardiac stent, denies prior heart attack, denies irregular heart beat, denies high cholesterol, denies poor circulation, denies heart failure, other cardiac issues, denies claudication, denies cold feet, denies peripheral arterial stent. Respiratory: The patient denies tuberculosis, denies pneumonia, denies frequent cough, denies pulmonary embolism, denies shortness of breath, and denies coughing up blood. Gastrointestinal: The patient denies difficulty swallowing, notes acid reflux, denies ulcers, notes vomiting, denies jaundice/hepatitis, notes gallbladder problems, denies black or tarry stools, notes hemorrhoids, denies bleeding from rectum, denies diverticulitis, notes constipation, notes diarrhea, denies loss of stool control, and denies hernias. Kidney/Bladder: The patient denies kidney stones, denies urine infections, and denies bloody urine. Skin: The patient denies a history of skin cancer, denies bleeding/changing moles, and denies a history of skin rash. Neurologic: The patient denies a history of epilepsy/convulsions, notes headaches, denies head/spinal injuries, and denies stroke/TIA. Psychiatric: The patient denies psychiatric medications, notes depression, and denies voices, denies substance abuse. Endocrine: The patient denies thyroid disorders, notes diabetes, and denies hormonal problems. Hematologic: The patient denies a history of bruising, denies bleeding, and denies anemia, denies blood clots. Infections: The patient denies a history of measles and mumps, denies rheumatic fever, and denies sexually transmitted diseases. Musculoskeletal: The patient denies back pain/injury, denies back problems, denies sciatica, notes knee/foot trouble, denies arthritis, or denies gout. When was patient's last Mammogram screening? 07/21/2014 Last Colonoscopy: None Shannan Erickson LPN [facility] 03-01-2024 History of Presen t illness Narrative REVIEW OF SYSTEMS: General: The patient denies fatigue, denies weight loss, denies weight gain, denies feeling hot, and denies feelings of cold. Eyes: The patient denies glaucoma, denies eye injury/surgery, does not wear glasses or contacts. Ear/Nose/Throat: The patient notes allergies, denies hayfever, notes ear infections, and notes bloody noses. Cardiovascular: The patient denies chest pain, denies heart disease, denies high blood pressure,denies cardiac stent, denies prior heart attack, denies irregular heart beat, denies high cholesterol, denies poor circulation, denies heart failure, other cardiac issues, denies claudication, denies cold feet, denies peripheral arterial stent. Respiratory: The patient denies tuberculosis, denies pneumonia, denies frequent cough, denies pulmonary embolism, denies shortness of breath, and denies coughing up blood. Gastrointestinal: The patient denies difficulty swallowing, notes acid reflux, denies ulcers, notes vomiting, denies jaundice/hepatitis, notes gallbladder problems, denies black or tarry stools, notes hemorrhoids, denies bleeding from rectum, denies diverticulitis, notes constipation, notes diarrhea, denies loss of stool control, and denies hernias. Kidney/Bladder: The patient denies kidney stones, denies urine infections, and denies bloody urine. Skin: The patient denies a history of skin cancer, denies bleeding/changing moles, and denies a history of skin rash. Neurologic: The patient denies a history of epilepsy/convulsions, notes headaches, denies head/spinal injuries, and denies stroke/TIA. Psychiatric: The patient denies psychiatric medications, notes depression, and denies voices, denies substance abuse. Endocrine: The patient denies thyroid disorders, notes diabetes, and denies hormonal problems. Hematologic: The patient denies a history of bruising, denies bleeding, and denies anemia, denies blood clots. Infections: The patient denies a history of measles and mumps, denies rheumatic fever, and denies sexually transmitted diseases. Musculoskeletal: The patient denies back pain/injury, denies back problems, denies sciatica, notes knee/foot trouble, denies arthritis, or denies gout. When was patient's last Mammogram screening? 07/21/2014 Last Colonoscopy: None Shannan Erickson LPN HISTORY AND PHYSICAL Candelaria Callahansandhya : 1985 REFERRING PHYSICIAN: Teo Linder [address] [facility] [address] CHIEF COMPLAINT: Patient presents with: Consult HPI: Candelaria is a 38 year old female referred for endoscopy. Candelaria notes worsening GERD symptoms since increasing her Mounjaro dose in October. Candelaria notes heartburn. Feeling like lava is coming up +nausea +decreased appetite +bloating +notes a globus sensation- states it feels like mucus needing to be brought up. +hx of cholecystectomy Candelaria denies dysphagia. Candelaria denies a history of ulcers/ peptic ulcer disease. OV on 02/26- Mounjaro dose was decreased- pt is still on Adipex & taking Protonix 40mg notes no improvement. Was prescribed carafate but told not to take it. Candelaria has not undergone prior endoscopy. Current Outpatient Medications Medication Sig tirzepatide (MOUNJARO) 12.5 mg/0.5 mL pen injector Inject 12.5 mg subcutaneously one time a week. colestipol (COLESTID) 1 gram tablet Take 1 tablet by mouth once daily. For Diarrhea Post Gall Bladder Removal pantoprazole DR (PROTONIX) 40 mg tablet Take 1 tablet by mouth two times a day. Take on empty stomach, 1/2 hr before meal. Phentermine HCl 37.5 mg capsule Take 1 capsule by mouth once daily for 90 days. BMI 30.57 EPINEPHrine (EPIPEN) 0.3 mg/0.3 mL auto-injector Use for allergic reaction metFORMIN ER (GLUCOPHAGE XR) 500 mg 24 hr tablet Take 1 tablet by mouth two times a day. levonorgestrel (KYLEENA) 17.5 mcg/24 hrs (5 yrs) 19.5 mg IUD 1 Each by INTRAUTERINE route one time only. flash glucose sensor (FREESTYLE EMILIA 14 DAY SENSOR) kit Apply and use as directed. Dx: Uncontrolled type 2 diabetes without insulin. flash glucose scanning reader (FREESTYLE EMILIA 3 READER) 1 Each once daily. Lancets lancets Test blood sugar(s)2 times daily. Dx: uncontrolled type 2 DM insulin needles, DISPOSABLE, (BD INSULIN PEN NEEDLE UF) 31 gauge x /16" use once daily as directed blood sugar diagnostic (BLOOD GLUCOSE TEST) test strip Test blood sugar(s) 2 times daily. Dx: uncontrolled type 2 DM sucralfate (CARAFATE) 1 gram tablet Take 1 tablet by mouth before meals and at bedtime. (Patient not taking: Reported on 03/01/2024) nystatin (MYCOSTATIN) 100,000 unit/mL suspension 5 mL four times daily. Swish/swallow or swish/expectorate (Patient not taking: Reported on 03/01/2024) Phenyleph-Shark Uja-Quxr-Rzv (HEMORRHOIDAL) 0.25-3-12 % crea by RECTAL route twice daily. No current facility-administered medications for this visit. ALLERGIES: Macadamia Nut Oil and Meloxicam PAST MEDICAL HISTORY Diagnosis Date Abnormal Pap smear of cervix ascus cannot rule out high grade Diabetes mellitus type 2 in obese Gastroesophageal reflux disease without esophagitis Globus sensation Migraine headache Obesity PAST SURGICAL HISTORY Procedure Laterality Date SECTION HX 03/24/2013 CHOLECYSTECTOMY HX INSERTION OF IUD 2016 Mirena IUD removed 10/20/2020 KYLEENA IUD 10/20/2020 LYSIS OF ADHESIONS 07/04/2023 NEXPLANON INSERTION 05/10/2013 OSTECTOMY CALCANEUS SPUR W/WO PLNTAR FASCIAL RLS Left Dr. Jimenez REPAIR OF NASAL SEPTUM SALPINGECTOMY Bilateral 07/04/2023 Laparoscopic B/L Salpingectomy at [facility]-Dr. Condon FAMILY HISTORY Problem Relation Age of Onset No Known Problems Mother Cancer Father pancreatic and renal. Anesthesia Problems Father slow emergence, PONV No Known Problems Brother No Known Problems Son Breast Cancer Maternal Aunt Cervical Cancer Paternal Aunt x2- and one cousin No Known Problems Maternal Grandmother Diabetes Maternal Grandfather Diabetes Paternal Grandfather other (lymphomia) Other maternal cousin other (leukemia) Other cousin Social History Tobacco Use Smoking status: Never Smokeless tobacco: Never Vaping Use Vaping status: Never Used Substance Use Topics Alcohol use: Yes Comment: Socially Drug use: Not Currently Types: Marijuana REVIEW OF SYMPTOMS: REVIEW OF SYSTEMS: General: The patient denies fatigue, denies weight loss, denies weight gain, denies feeling hot, and feelings of cold. Eyes: The patient denies glaucoma, denies eye injury/surgery, denies glasses or contacts. Ear/Nose/Throat: The patient + allergies, denies hayfever, + ear infections, and + bloody noses. Cardiovascular: The patient denies chest pain, denies heart disease, denies high blood pressure, denies high cholesterol, and denies poor circulation. Respiratory: The patient denies tuberculosis, denies pneumonia, denies frequent cough, denies shortness of breath, and denies coughing up blood. Gastrointestinal: The patient denies difficulty swallowing, + acid reflux, denies ulcers, denies jaundice/hepatitis, + gallbladder problems, + vomiting, denies black or tarry stools, denies hemorrhoids, + bleeding from rectum, denies diverticulitis, + constipation, + diarrhea, denies loss of stool control, and denies hernias. Kidney/Bladder: The patient denies kidney stones, denies urine infections, and denies bloody urine. Skin: The patient denies a history of skin cancer, denies bleeding/changing moles, and denies a history of skin rash. Neurologic: The patient denies a history of epilepsy/convulsions, + headaches, denies head/spinal injuries, and denies stroke/TIA. Psychiatric: The patient denies psychiatric medications, + depression, and denies voices. Endocrine: The patient denies thyroid disorders, + diabetes, and denies hormonal problems. Hematologic: The patient denies a history of bruising, denies bleeding, and denies anemia. Infections: The patient denies a history of measles and mumps, denies rheumatic fever, and denies sexually transmitted diseases. Musculoskeletal: The patient denies back pain/injury, denies back problems, denies sciatica, + knee/foot trouble, denies arthritis, or denies gout. PHYSICAL EXAMINATION: General: The patient is 38 year old, female well nourished, well hydrated in no acute distress. The patient is oriented to time, place, and person. VITALS: Blood pressure 130/86, pulse 94, temperature 36.9 C (98.4 F), temperature source Temporal, resp. rate 12, height 175.3 cm (5' 9"), weight 86.6 kg (191 lb), last menstrual period 10/11/2023, SpO2 100%. Body mass index is 28.21 kg/m . HEENT: Normal cephalic, ataumatic, pupils are equally round, sclera are anicteric, mucous membranes are moist, oropharynx is clear. Neck has no masses, asymmetry or lymphadenopathy. Respiratory: Clear to auscultation and percussion. Normal respiratory excursion and pattern. Cardiac: Examination is regular rate and rhythm. Normal S1/S2 Abdominal exam: Soft,with no palpable masses. +epigastric & RUQ tenderness No hepatosplenomegaly. No palpable hernias. Extremities: no clubbing, cyanosis or edema. No adenopathy. LABORATORY VALUES: As Noted RADIOLOGIC STUDIES: As Noted Assessment IMPRESSION: GERD, globus sensation, bloating, nausea, upset stomach PLAN: I have reviewed my findings with the surgeon. Will plan for upper endoscopy. We discussed the risks and benefits of the planned endoscopy. I have informed the patient that complications can occur including failure to complete the endoscopy and perforation. Candelaria had the opportunity to ask questions concerning the planned endoscopy. My staff has also explained the procedure to the patient in understandable terms and has given the patient printed material concerning the procedure. Candelaria freely consents to surgery. Instructed to hold Mounjaro for 7 days prior to endoscopy. Instructed to hold Adipex for 7 days prior to endoscopy. I have explained to the patient the difference between IV conscious sedation and MAC anesthesia - and I have offered either, according to the patient's wishes. I have explained that with IV conscious sedation there is no anesthesia provider available and therefore there is a limitation of the amount of IV medications that can be given and that the patient may wake up in the middle of the procedure and/or experience pain/discomfort during the procedure. Further discussion was done and the patient was given the opportunity to ask questions and all questions were answered. MAC anesthesia. Candelaria was counseled that if there are changes in his/her medical condition, to let the office know if surgery should proceed. If there are changes in patient's medical condition from time of this encounter to the day of the procedure that preclude anesthesia, patient may have procedure cancelled for patient's safety. Diagnoses: (K21.9) Gastroesophageal reflux disease without esophagitis (R09.A2) Globus sensation (R14.0) Bloating (K30) Upset stomach (R11.0) Nausea Consultation requested by Dr. Linder for an opinion regarding increase in gerd. My final recommendations will be communicated back to the requesting physician by way of shared Medical record or letter to requesting physician via US mail. Portions of this documentation were copied and pasted from previous office visit notes in order to provide a cohesive continuity of the history. The note has been reviewed and edited and updated as necessary. Tori Maddox APRN.GUM COOK documented in this encounter [facility] 03-01-2024 Note HNO ID: [id number] Author: TORI MADDOX APRN.KEEGAN Service: ? Author Type: Nurse Practitioner Type: Progress Notes Filed: 03/01/2024 15:47 Note Text: HISTORY AND PHYSICAL Candelaria Grant : 1985 REFERRING PHYSICIAN: Teo Linder [address] [facility] [address] CHIEF COMPLAINT: Patient presents with: Consult HPI: Candelaria is a 38 year old female referred for endoscopy. Candelaria notes worsening GERD symptoms since increasing her Mounjaro dose in October. Candelaria notes heartburn. Feeling like lava is coming up +nausea +decreased appetite +bloating +notes a globus sensation- states it feels like mucus needing to be brought up. +hx of cholecystectomy Candelaria denies dysphagia. Candelaria denies a history of ulcers/ peptic ulcer disease. OV on 02/26- Mounjaro dose was decreased- pt is still on Adipex AND taking Protonix 40mg notes no improvement. Was prescribed carafate but told not to take it. Candelaira has not undergone prior endoscopy. Current Outpatient Medications Medication Sig tirzepatide (MOUNJARO) 12.5 mg/0.5 mL pen injector Inject 12.5 mg subcutaneously one time a week. colestipol (COLESTID) 1 gram tablet Take 1 tablet by mouth once daily. For Diarrhea Post Gall Bladder Removal pantoprazole DR (PROTONIX) 40 mg tablet Take 1 tablet by mouth two times a day. Take on empty stomach, 1/2 hr before meal. Phentermine HCl 37.5 mg capsule Take 1 capsule by mouth once daily for 90 days. BMI 30.57 EPINEPHrine (EPIPEN) 0.3 mg/0.3 mL auto-injector Use for allergic reaction metFORMIN ER (GLUCOPHAGE XR) 500 mg 24 hr tablet Take 1 tablet by mouth two times a day. levonorgestrel (KYLEENA) 17.5 mcg/24 hrs (5 yrs) 19.5 mg IUD 1 Each by INTRAUTERINE route one time only. flash glucose sensor (FREESTYLE EMILIA 14 DAY SENSOR) kit Apply and use as directed. Dx: Uncontrolled type 2 diabetes without insulin. flash glucose scanning reader (FREESTYLE EMILIA 3 READER) 1 Each once daily. Lancets lancets Test blood sugar(s)2 times daily. Dx: uncontrolled type 2 DM insulin needles, DISPOSABLE, (BD INSULIN PEN NEEDLE UF) 31 gauge x 5/16" use once daily as directed blood sugar diagnostic (BLOOD GLUCOSE TEST) test strip Test blood sugar(s) 2 times daily. Dx: uncontrolled type 2 DM sucralfate (CARAFATE) 1 gram tablet Take 1 tablet by mouth before meals and at bedtime. (Patient not taking: Reported on 03/01/2024) nystatin (MYCOSTATIN) 100,000 unit/mL suspension 5 mL four times daily. Swish/swallow or swish/expectorate (Patient not taking: Reported on 03/01/2024) Phenyleph-Shark Zmi-Aago-Zif (HEMORRHOIDAL) 0.25-3-12 % crea by RECTAL route twice daily. No current facility-administered medications for this visit. ALLERGIES: Macadamia Nut Oil and Meloxicam PAST MEDICAL HISTORY Diagnosis Date Abnormal Pap smear of cervix ascus cannot rule out high grade Diabetes mellitus type 2 in obese Gastroesophageal reflux disease without esophagitis Globus sensation Migraine headache Obesity PAST SURGICAL HISTORY Procedure Laterality Date SECTION HX 03/24/2013 CHOLECYSTECTOMY HX INSERTION OF IUD 2017 Mirena IUD removed 10/20/2020 KYLEENA IUD 10/20/2020 LYSIS OF ADHESIONS 07/04/2023 NEXPLANON INSERTION 05/10/2013 OSTECTOMY CALCANEUS SPUR W/WO PLNTAR FASCIAL RLS Left Dr. Jimenez REPAIR OF NASAL SEPTUM SALPINGECTOMY Bilateral 07/04/2023 Laparoscopic B/L Salpingectomy at [facility]-Dr. Condon FAMILY HISTORY Problem Relation Age of Onset No Known Problems Mother Cancer Father pancreatic and renal. Anesthesia Problems Father slow emergence, PONV No Known Problems Brother No Known Problems Son Breast Cancer Maternal Aunt Cervical Cancer Paternal Aunt x2- and one cousin No Known Problems Maternal Grandmother Diabetes Maternal Grandfather Diabetes Paternal Grandfather other (lymphomia) Other maternal cousin other (leukemia) Other cousin Social History Tobacco Use Smoking status: Never Smokeless tobacco: Never Vaping Use Vaping status: Never Used Substance Use Topics Alcohol use: Yes Comment: Socially Drug use: Not Currently Types: Marijuana REVIEW OF SYMPTOMS: REVIEW OF SYSTEMS: General: The patient denies fatigue, denies weight loss, denies weight gain, denies feeling hot, and feelings of cold. Eyes: The patient denies glaucoma, denies eye injury/surgery, denies glasses or contacts. Ear/Nose/Throat: The patient + allergies, denies hayfever, + ear infections, and + bloody noses. Cardiovascular: The patient denies chest pain, denies heart disease, denies high blood pressure, denies high cholesterol, and denies poor circulation. Respiratory: The patient denies tuberculosis, denies pneumonia, denies frequent cough, denies shortness of breath, and denies coughing up blood. Gastrointestinal: The patient denies difficulty swallowing, + acid reflux, denies ulcers, denies jaundice/hepatitis, + g (more content not included)... [facility] 02-27-2024 Note HNO ID: [id number] Author: POLLY GRANT APRN.GUM COOK Service: ? Author Type: Nurse Practitioner Type: Progress Notes Filed: 02/27/2024 08:55 Note Text: Chief Complaint No chief complaint on file. HPI Candelaria Grant is a 38 year old female who presents here today for Above Complaints. Candelaria is an established patient of Dr. Gerardo Do. Concerns today... GERD -- Saw Dr. Linder on Friday for this. They increased protonix to 40 mg BID and started Carafate. (Pt reports not starting carafate yet d/t unable to get to pharmacy to pick it up yet). Placed consult for general surgery for EGD at this visit as well. Discussed symptoms likely exacerbated by Mounjaro on Friday. Pt has been on Mounjaro for quite some time. Her dosage was adjusted back in September from 15 mg to 10 mg weekly. She then switched back to the 15 mg in November. DM is very stable, with last HgA1c on 01/11 being 5.6 Blood sugars at home have been stable and at goal. Willing to decrease mounjaro if needed. Weight loss has been steady and stable without concern, pt is already at goal weight. Past medical history, appointments, medications, allergies reviewed. Previous Medical History PAST MEDICAL HISTORY Diagnosis Date Abnormal Pap smear of cervix ascus cannot rule out high grade Diabetes mellitus type 2 in obese Gastroesophageal reflux disease without esophagitis Globus sensation Migraine headache Obesity Previous Surgical History PAST SURGICAL HISTORY Procedure Laterality Date SECTION HX 03/24/2013 CHOLECYSTECTOMY HX INSERTION OF IUD 2017 Mirena IUD removed 10/20/2020 KYLEENA IUD 10/20/2020 LYSIS OF ADHESIONS 07/04/2023 NEXPLANON INSERTION 05/10/2013 OSTECTOMY CALCANEUS SPUR W/WO PLNTAR FASCIAL RLS Left Dr. Jimenez REPAIR OF NASAL SEPTUM SALPINGECTOMY Bilateral 07/04/2023 Laparoscopic B/L Salpingectomy at [facility]-Dr. Condon Family History FAMILY HISTORY Problem Relation Age of Onset No Known Problems Mother Cancer Father pancreatic and renal. Anesthesia Problems Father slow emergence, PONV No Known Problems Brother No Known Problems Son Breast Cancer Maternal Aunt Cervical Cancer Paternal Aunt x2- and one cousin No Known Problems Maternal Grandmother Diabetes Maternal Grandfather Diabetes Paternal Grandfather other (lymphomia) Other maternal cousin other (leukemia) Other cousin Patient Allergies ALLERGIES Allergen Reactions Macadamia Nut Oil Hives, Swelling, Shortness of Breath Meloxicam Intolerance Headache Current Medications Current Outpatient Medications on File Prior to Visit Medication Sig pantoprazole DR (PROTONIX) 40 mg tablet Take 1 tablet by mouth two times a day. Take on empty stomach, 1/2 hr before meal. sucralfate (CARAFATE) 1 gram tablet Take 1 tablet by mouth before meals and at bedtime. Phentermine HCl 37.5 mg capsule Take 1 capsule by mouth once daily for 90 days. BMI 30.57 tirzepatide (MOUNJARO) 15 mg/0.5 mL pen injector Inject 15 mg subcutaneously one time a week. EPINEPHrine (EPIPEN) 0.3 mg/0.3 mL auto-injector Use for allergic reaction nystatin (MYCOSTATIN) 100,000 unit/mL suspension 5 mL four times daily. Swish/swallow or swish/expectorate metFORMIN ER (GLUCOPHAGE XR) 500 mg 24 hr tablet Take 1 tablet by mouth two times a day. colestipol (COLESTID) 1 gram tablet Take 1 tablet by mouth once daily. For Diarrhea Post Gall Bladder Removal levonorgestrel (KYLEENA) 17.5 mcg/24 hrs (5 yrs) 19.5 mg IUD 1 Each by INTRAUTERINE route one time only. flash glucose sensor (FREESTYLE EMILIA 14 DAY SENSOR) kit Apply and use as directed. Dx: Uncontrolled type 2 diabetes without insulin. flash glucose scanning reader (FREESTYLE EMILIA 3 READER) 1 Each once daily. Phenyleph-Shark Icq-Zpvl-Ghu (HEMORRHOIDAL) 0.25-3-12 % crea by RECTAL route twice daily. Lancets lancets Test blood sugar(s)2 times daily. Dx: uncontrolled type 2 DM insulin needles, DISPOSABLE, (BD INSULIN PEN NEEDLE UF) 31 gauge x 5/16" use once daily as directed blood sugar diagnostic (BLOOD GLUCOSE TEST) test strip Test blood sugar(s) 2 times daily. Dx: uncontrolled type 2 DM No current facility-administered medications on file prior to visit. Social History Social History Tobacco Use Smoking status: Never Smokeless tobacco: Never Vaping Use Vaping status: Never Used Substance Use Topics Alcohol use: Yes Comment: Rarely Drug use: No REVIEW OF SYSTEMS: as above Reviewed relevant PMHx, PSHx, Social Hx, current medications and allergies. Review of Symptoms REVIEW OF SYSTEMS See HPI. EXAM: BP 136/80 (BP Site: Left Arm, BP Position: Sitting, BP Cuff Size: Large Adult) Pulse 86 Resp 14 Wt 85.9 kg (189 lb 6.4 oz) LMP 10/11/2023 (Approximate) SpO2 100% BMI 27.97 kg/m? General Appearance: Well appearing, alert, in no acute distress, well-hydrated, well nourished.. Skin: Skin color, texture, turgor normal, no quintero (more content not included)... [facility] 02-27-2024 History of Presen t illness Narrative Chief Complaint No chief complaint on file. HPI Candelaria Grnat is a 38 year old female who presents here today for Above Complaints. Candelaria is an established patient of Dr. Gerardo Do. Concerns today... GERD -- Saw Dr. Linder on Friday for this. They increased protonix to 40 mg BID and started Carafate. (Pt reports not starting carafate yet d/t unable to get to pharmacy to pick it up yet). Placed consult for general surgery for EGD at this visit as well. Discussed symptoms likely exacerbated by Mounjaro on Friday. Pt has been on Mounjaro for quite some time. Her dosage was adjusted back in September from 15 mg to 10 mg weekly. She then switched back to the 15 mg in November. DM is very stable, with last HgA1c on 01/11 being 5.6 Blood sugars at home have been stable and at goal. Willing to decrease mounjaro if needed. Weight loss has been steady and stable without concern, pt is already at goal weight. Past medical history, appointments, medications, allergies reviewed. Previous Medical History PAST MEDICAL HISTORY Diagnosis Date Abnormal Pap smear of cervix ascus cannot rule out high grade Diabetes mellitus type 2 in obese Gastroesophageal reflux disease without esophagitis Globus sensation Migraine headache Obesity Previous Surgical History PAST SURGICAL HISTORY Procedure Laterality Date SECTION HX 03/24/2013 CHOLECYSTECTOMY HX INSERTION OF IUD 2016 Mirena IUD removed 10/20/2020 KYLEENA IUD 10/20/2020 LYSIS OF ADHESIONS 07/04/2023 NEXPLANON INSERTION 05/10/2013 OSTECTOMY CALCANEUS SPUR W/WO PLNTAR FASCIAL RLS Left Dr. Jimenez REPAIR OF NASAL SEPTUM SALPINGECTOMY Bilateral 07/04/2023 Laparoscopic B/L Salpingectomy at [facility]-Dr. Condon Family History FAMILY HISTORY Problem Relation Age of Onset No Known Problems Mother Cancer Father pancreatic and renal. Anesthesia Problems Father slow emergence, PONV No Known Problems Brother No Known Problems Son Breast Cancer Maternal Aunt Cervical Cancer Paternal Aunt x2- and one cousin No Known Problems Maternal Grandmother Diabetes Maternal Grandfather Diabetes Paternal Grandfather other (lymphomia) Other maternal cousin other (leukemia) Other cousin Patient Allergies ALLERGIES Allergen Reactions Macadamia Nut Oil Hives, Swelling, Shortness of Breath Meloxicam Intolerance Headache Current Medications Current Outpatient Medications on File Prior to Visit Medication Sig pantoprazole DR (PROTONIX) 40 mg tablet Take 1 tablet by mouth two times a day. Take on empty stomach, 1/2 hr before meal. sucralfate (CARAFATE) 1 gram tablet Take 1 tablet by mouth before meals and at bedtime. Phentermine HCl 37.5 mg capsule Take 1 capsule by mouth once daily for 90 days. BMI 30.57 tirzepatide (MOUNJARO) 15 mg/0.5 mL pen injector Inject 15 mg subcutaneously one time a week. EPINEPHrine (EPIPEN) 0.3 mg/0.3 mL auto-injector Use for allergic reaction nystatin (MYCOSTATIN) 100,000 unit/mL suspension 5 mL four times daily. Swish/swallow or swish/expectorate metFORMIN ER (GLUCOPHAGE XR) 500 mg 24 hr tablet Take 1 tablet by mouth two times a day. colestipol (COLESTID) 1 gram tablet Take 1 tablet by mouth once daily. For Diarrhea Post Gall Bladder Removal levonorgestrel (KYLEENA) 17.5 mcg/24 hrs (5 yrs) 19.5 mg IUD 1 Each by INTRAUTERINE route one time only. flash glucose sensor (FREESTYLE EMILIA 14 DAY SENSOR) kit Apply and use as directed. Dx: Uncontrolled type 2 diabetes without insulin. flash glucose scanning reader (FREESTYLE EMILIA 3 READER) 1 Each once daily. Phenyleph-Shark Rqi-Umds-Gcv (HEMORRHOIDAL) 0.25-3-12 % crea by RECTAL route twice daily. Lancets lancets Test blood sugar(s)2 times daily. Dx: uncontrolled type 2 DM insulin needles, DISPOSABLE, (BD INSULIN PEN NEEDLE UF) 31 gauge x 5/16" use once daily as directed blood sugar diagnostic (BLOOD GLUCOSE TEST) test strip Test blood sugar(s) 2 times daily. Dx: uncontrolled type 2 DM No current facility-administered medications on file prior to visit. Social History Social History Tobacco Use Smoking status: Never Smokeless tobacco: Never Vaping Use Vaping status: Never Used Substance Use Topics Alcohol use: Yes Comment: Rarely Drug use: No REVIEW OF SYSTEMS: as above Reviewed relevant PMHx, PSHx, Social Hx, current medications and allergies. Review of Symptoms REVIEW OF SYSTEMS See HPI. EXAM: BP 136/80 (BP Site: Left Arm, BP Position: Sitting, BP Cuff Size: Large Adult) Pulse 86 Resp 14 Wt 85.9 kg (189 lb 6.4 oz) LMP 10/11/2023 (Approximate) SpO2 100% BMI 27.97 kg/m General Appearance: Well appearing, alert, in no acute distress, well-hydrated, well nourished.. Skin: Skin color, texture, turgor normal, no suspicious rashes or lesions. Head: Normocephalic, no masses, lesions, tenderness or abnormalities. Lungs: Lungs clear to auscultation. No wheezing, rhonchi, rales.. Heart: RRR without murmur, gallop, or rubs. No ectopy. Abdomen: Normal abdominal exam, Abdomen soft, non-tender. Bowel sounds normal. No masses, organomegaly. Health Maintenance List DTaP,Tdap,Td Vaccine(1 - Tdap) Never done Pneumococcal Vaccine(2 of 2 - PCV) due on 01/22/2017 Dilated Retinal Exam due on 03/17/2022 Urine Albumin:Creatinine Ratio due on 10/23/2023 Influenza Vaccine(1) due on 09/13/2024 Covid-19 Vaccine( season) due on 02/26/2025 Diabetic Foot Exam due on 04/25/2024 Depression Screening due on 04/25/2024 Anxiety Screening due on 04/25/2024 LDL Cholesterol due on 06/01/2024 HbA1C due on 07/12/2024 Annual PCP Team Chronic Disease Visit due on 02/26/2025 Cervical Cancer Screening due on 04/02/2027 Hepatitis C Screening Completed HIV Screening Completed HPV Vaccine Aged Out ASSESSMENT/PLAN: 1. Controlled type 2 diabetes mellitus without complication, without long-term current use of insulin (HCC) - ICD9: 250.00, ICD10: E11.9 (primary diagnosis) - Controlled Repeat hgA1c in 1 month. Decrease Mounjaro to 12.5 mg weekly d/t exacerbating side effects of GERD. - TIRZEPATIDE 12.5 MG/0.5 ML SUBCUTANEOUS PEN INJECTOR - HEMOGLOBIN A1C - ALBUMIN/CREATININE RATIO, URINE 2. Gastroesophageal reflux disease without esophagitis - ICD9: 530.81, ICD10: K21.9 Continue with plan as instructed at recent visit with Dr. Linder. Continue with increase Protonix dosage. Decrease Mounjaro regimen and see if this helps symptoms. If no improvement, then start carafate regimen as prescribed prior (since she has not started this yet, trial decreasing mounjaro first). Continue with general surgery consult. 3. 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 - COLESTIPOL 1 GRAM TABLET RTO in 6 months, sooner if needed. Medical Decision Making: Problems: Moderate: 1+ chronic illnesses with change Data: Unique test(s) ordered: 2 Risk: Moderate: Drug management Medical Decision Making Level: 4 - Moderate Prescription instructions reviewed with patient as applicable. Potential red flag symptoms discussed with the patient. Reviewed appropriate action plan to take if red flag symptoms occur. Patient agreeable to treatment plan. Polly Quintero APRN.KEEGAN [id number] [place] [address] documented in this encounter [facility] 02-24-2024 History of Presen t illness Narrative Chief Complaint Patient presents with: Reflux HPI Candelaria Grant is a 38 year old female who presents here today for a same day visit. Established pt of Dr. Carrillo here today for an acute visit. Pt here today with complaints of worsening reflux symptoms. Pt was seen on 01/23/24 by Kevin Witt CNP and complained of globus sensation. Noted this worsening after having Moujaro dosage increased, accompanied by eating [employer]. The next morning after eating [employer] she woke up with reflux and rotten egg taste in her mouth. Pt was started back on Protonix 40 mg once daily at that visit. During her visit trino Brown noted in the past she'd been on Protonix, but medication was d/c and wondering if she should be taking something. Since last week she's been waking up in the morning with increased reflux symptoms. Reports symptoms of chest hurting, burning, feels like something is coming up and she wants to throw up but she doesn't. Feels sick to her stomach and nauseas. Pt states when she wakes up in the morning it feels like "lava" coming up. Also is having decreased appetite and if she does eat something she experiences bloating. Pt is currently on Mounjaro 15 mg once weekly and Adipex 37.5 mg once daily. Was taking Protonix 40 mg and felt it was helping until . Pt has been on Mounjaro for quite some time. Her dosage was adjusted back in September from 15 mg to 10 mg weekly. She then switched back to the 15 mg in November. Unable to tell if this makes it worse. Has not had anyone ever look in her stomach. Was made aware medications can cause gastric emptying issues. Past medical history, appointments, medications, allergies reviewed. Previous Medical History PAST MEDICAL HISTORY Diagnosis Date Abnormal Pap smear of cervix ascus cannot rule out high grade Diabetes mellitus type 2 in obese Migraine headache Obesity Previous Surgical History PAST SURGICAL HISTORY Procedure Laterality Date SECTION HX 03/24/2013 CHOLECYSTECTOMY HX INSERTION OF IUD 2017 Mirena IUD removed 10/20/2020 KYLEENA IUD 10/20/2020 LYSIS OF ADHESIONS 07/04/2023 NEXPLANON INSERTION 05/10/2013 OSTECTOMY CALCANEUS SPUR W/WO PLNTAR FASCIAL RLS Left Dr. Jimenez REPAIR OF NASAL SEPTUM SALPINGECTOMY Bilateral 07/04/2023 Laparoscopic B/L Salpingectomy at [facility]-Dr. Condon Family History FAMILY HISTORY Problem Relation Age of Onset No Known Problems Mother Cancer Father pancreatic and renal. Anesthesia Problems Father slow emergence, PONV No Known Problems Brother No Known Problems Son Breast Cancer Maternal Aunt Cervical Cancer Paternal Aunt x2- and one cousin No Known Problems Maternal Grandmother Diabetes Maternal Grandfather Diabetes Paternal Grandfather other (lymphomia) Other maternal cousin other (leukemia) Other cousin Patient Allergies ALLERGIES Allergen Reactions Macadamia Nut Oil Hives, Swelling, Shortness of Breath Meloxicam Intolerance Headache Current Medications Current Outpatient Medications on File Prior to Visit Medication Sig Phentermine HCl 37.5 mg capsule Take 1 capsule by mouth once daily for 90 days. BMI 30.57 tirzepatide (MOUNJARO) 15 mg/0.5 mL pen injector Inject 15 mg subcutaneously one time a week. EPINEPHrine (EPIPEN) 0.3 mg/0.3 mL auto-injector Use for allergic reaction pantoprazole DR (PROTONIX) 40 mg tablet Take 1 tablet by mouth daily before breakfast. Take on empty stomach, 1/2 hr before meal. nystatin (MYCOSTATIN) 100,000 unit/mL suspension 5 mL four times daily. Swish/swallow or swish/expectorate metFORMIN ER (GLUCOPHAGE XR) 500 mg 24 hr tablet Take 1 tablet by mouth two times a day. colestipol (COLESTID) 1 gram tablet Take 1 tablet by mouth once daily. For Diarrhea Post Gall Bladder Removal levonorgestrel (KYLEENA) 17.5 mcg/24 hrs (5 yrs) 19.5 mg IUD 1 Each by INTRAUTERINE route one time only. flash glucose sensor (FREESTYLE EMILIA 14 DAY SENSOR) kit Apply and use as directed. Dx: Uncontrolled type 2 diabetes without insulin. flash glucose scanning reader (FREESTYLE EMILIA 3 READER) 1 Each once daily. Phenyleph-Shark Rxm-Lwgj-Yno (HEMORRHOIDAL) 0.25-3-12 % crea by RECTAL route twice daily. Lancets lancets Test blood sugar(s)2 times daily. Dx: uncontrolled type 2 DM insulin needles, DISPOSABLE, (BD INSULIN PEN NEEDLE UF) 31 gauge x 5/16" use once daily as directed blood sugar diagnostic (BLOOD GLUCOSE TEST) test strip Test blood sugar(s) 2 times daily. Dx: uncontrolled type 2 DM No current facility-administered medications on file prior to visit. Social History Social History Tobacco Use Smoking status: Never Smokeless tobacco: Never Vaping Use Vaping status: Never Used Substance Use Topics Alcohol use: Yes Comment: Rarely Drug use: No EXAM: BP 142/90 Pulse 80 Resp 16 Wt 86.1 kg (189 lb 13.1 oz) LMP 10/11/2023 (Approximate) BMI 28.03 kg/m General Appearance: Well appearing, alert, in no acute distress, well-hydrated, well nourished. and Overweight. Lungs: Lungs clear to auscultation. No wheezing, rhonchi, rales.. Heart: RRR without murmur, gallop, or rubs. No ectopy. Abdomen: Normal abdominal exam, Abdomen soft, tender to palpitate in epigastric area. Bowel sounds normal. No masses, organomegaly. Health Maintenance List DTaP,Tdap,Td Vaccine(1 - Tdap) Never done Pneumococcal Vaccine(2 of 2 - PCV) due on 01/22/2017 Dilated Retinal Exam due on 03/17/2022 Urine Albumin:Creatinine Ratio due on 10/23/2023 Influenza Vaccine(1) due on 11/16/2023 Covid-19 Vaccine( - season) Never done Diabetic Foot Exam due on 04/25/2024 Depression Screening due on 04/25/2024 Anxiety Screening due on 04/25/2024 LDL Cholesterol due on 06/01/2024 HbA1C due on 07/12/2024 Annual PCP Team Chronic Disease Visit due on 01/22/2025 Cervical Cancer Screening due on 04/02/2027 Hepatitis C Screening Completed HIV Screening Completed HPV Vaccine Aged Out Data reviewed None ASSESSMENT/PLAN: 1. Gastroesophageal reflux disease without esophagitis - ICD9: 530.81, ICD10: K21.9 (primary diagnosis) I suspect exacerbated by Mounjaro - Increase Protonix 40 mg bid - Start Carafate - Consult Gen Surg to consider endoscopy, with worsening of symptoms while on Protonix - PANTOPRAZOLE 40 MG TABLET,DELAYED RELEASE - SUCRALFATE 1 GRAM TABLET - CONSULT TO GENERAL SURGERY 2. Globus sensation - ICD9: 784.99, ICD10: R09.A2 - As noted above - PANTOPRAZOLE 40 MG TABLET,DELAYED RELEASE - SUCRALFATE 1 GRAM TABLET - CONSULT TO GENERAL SURGERY 3. Bloating - ICD9: 787.3, ICD10: R14.0 - as noted above - PANTOPRAZOLE 40 MG TABLET,DELAYED RELEASE - SUCRALFATE 1 GRAM TABLET - CONSULT TO GENERAL SURGERY 4. Upset stomach - ICD9: 536.8, ICD10: K30 - as noted above - PANTOPRAZOLE 40 MG TABLET,DELAYED RELEASE - SUCRALFATE 1 GRAM TABLET - CONSULT TO GENERAL SURGERY 5. Nausea - ICD9: 787.02, ICD10: R11.0 - as noted above - PANTOPRAZOLE 40 MG TABLET,DELAYED RELEASE - SUCRALFATE 1 GRAM TABLET - CONSULT TO GENERAL SURGERY Follow up with PCP Team. See General Surgery. I agree with the Chief Complaint, ROS, and Past Histories independently gathered by the clinical call center support consultant and the remaining scribed note accurately describes my personal service to the patient. Medical Decision Making: Problems: Moderate: 1+ chronic illnesses with change Risk: Moderate: Drug management Medical Decision Making Level: 4 - Moderate Teo Linder MD The documentation for this note was completed by Macy Espinal MA acting as scribe for Teo Linder MD. February 24, 2024 5:01 PM. Macy Espinal MA documented in this encounter [facility] 02-24-2024 Note HNO ID: [id number] Author: TEO LINDER MD Service: ? Author Type: Physician Type: Progress Notes Filed: 02/24/2024 17:11 Note Text: Chief Complaint Patient presents with: Reflux HPI Candelaria Grant is a 38 year old female who presents here today for a same day visit. Established pt of Dr. Carrillo here today for an acute visit. Pt here today with complaints of worsening reflux symptoms. Pt was seen on 01/23/24 by Kevin Witt CNP and complained of globus sensation. Noted this worsening after having Moujaro dosage increased, accompanied by eating [employer]. The next morning after eating [employer] she woke up with reflux and rotten egg taste in her mouth. Pt was started back on Protonix 40 mg once daily at that visit. During her visit trino Brown noted in the past she'd been on Protonix, but medication was d/c and wondering if she should be taking something. Since last week she's been waking up in the morning with increased reflux symptoms. Reports symptoms of chest hurting, burning, feels like something is coming up and she wants to throw up but she doesn't. Feels sick to her stomach and nauseas. Pt states when she wakes up in the morning it feels like "lava" coming up. Also is having decreased appetite and if she does eat something she experiences bloating. Pt is currently on Mounjaro 15 mg once weekly and Adipex 37.5 mg once daily. Was taking Protonix 40 mg and felt it was helping until . Pt has been on Mounjaro for quite some time. Her dosage was adjusted back in September from 15 mg to 10 mg weekly. She then switched back to the 15 mg in November. Unable to tell if this makes it worse. Has not had anyone ever look in her stomach. Was made aware medications can cause gastric emptying issues. Past medical history, appointments, medications, allergies reviewed. Previous Medical History PAST MEDICAL HISTORY Diagnosis Date Abnormal Pap smear of cervix ascus cannot rule out high grade Diabetes mellitus type 2 in obese Migraine headache Obesity Previous Surgical History PAST SURGICAL HISTORY Procedure Laterality Date SECTION HX 03/24/2013 CHOLECYSTECTOMY HX INSERTION OF IUD 2017 Mirena IUD removed 10/20/2020 KYLEENA IUD 10/20/2020 LYSIS OF ADHESIONS 07/04/2023 NEXPLANON INSERTION 05/10/2013 OSTECTOMY CALCANEUS SPUR W/WO PLNTAR FASCIAL RLS Left Dr. Jimenez REPAIR OF NASAL SEPTUM SALPINGECTOMY Bilateral 07/04/2023 Laparoscopic B/L Salpingectomy at [facility]-Dr. Condon Family History FAMILY HISTORY Problem Relation Age of Onset No Known Problems Mother Cancer Father pancreatic and renal. Anesthesia Problems Father slow emergence, PONV No Known Problems Brother No Known Problems Son Breast Cancer Maternal Aunt Cervical Cancer Paternal Aunt x2- and one cousin No Known Problems Maternal Grandmother Diabetes Maternal Grandfather Diabetes Paternal Grandfather other (lymphomia) Other maternal cousin other (leukemia) Other cousin Patient Allergies ALLERGIES Allergen Reactions Macadamia Nut Oil Hives, Swelling, Shortness of Breath Meloxicam Intolerance Headache Current Medications Current Outpatient Medications on File Prior to Visit Medication Sig Phentermine HCl 37.5 mg capsule Take 1 capsule by mouth once daily for 90 days. BMI 30.57 tirzepatide (MOUNJARO) 15 mg/0.5 mL pen injector Inject 15 mg subcutaneously one time a week. EPINEPHrine (EPIPEN) 0.3 mg/0.3 mL auto-injector Use for allergic reaction pantoprazole DR (PROTONIX) 40 mg tablet Take 1 tablet by mouth daily before breakfast. Take on empty stomach, 1/2 hr before meal. nystatin (MYCOSTATIN) 100,000 unit/mL suspension 5 mL four times daily. Swish/swallow or swish/expectorate metFORMIN ER (GLUCOPHAGE XR) 500 mg 24 hr tablet Take 1 tablet by mouth two times a day. colestipol (COLESTID) 1 gram tablet Take 1 tablet by mouth once daily. For Diarrhea Post Gall Bladder Removal levonorgestrel (KYLEENA) 17.5 mcg/24 hrs (5 yrs) 19.5 mg IUD 1 Each by INTRAUTERINE route one time only. flash glucose sensor (FREESTYLE EMILIA 14 DAY SENSOR) kit Apply and use as directed. Dx: Uncontrolled type 2 diabetes without insulin. flash glucose scanning reader (FREESTYLE EMILIA 3 READER) 1 Each once daily. Phenyleph-Shark Ckl-Bebk-Xfj (HEMORRHOIDAL) 0.25-3-12 % crea by RECTAL route twice daily. Lancets lancets Test blood sugar(s)2 times daily. Dx: uncontrolled type 2 DM insulin needles, DISPOSABLE, (BD INSULIN PEN NEEDLE UF) 31 gauge x 5/16" use once daily as directed blood sugar diagnostic (BLOOD GLUCOSE TEST) test strip Test blood sugar(s) 2 times daily. Dx: uncontrolled type 2 DM No current facility-administered medications on file prior to visit. Social History Social History Tobacco Use Smoking status: Never Smokeless tobacco: Never Vaping Use Vaping status: Never Used Substance Use Topics Alcohol use: Yes Comment: Rarely (more content not included)... [facility] 02-17-2024 Telephone encounter Note The following approved medication requests have been transmitted electronically. Requested Prescriptions Signed Prescriptions Disp Refills Phentermine HCl 37.5 mg capsule 30 capsule 2 Sig: Take 1 capsule by mouth once daily for 90 days. BMI 30.57 Authorizing Provider: THERESA WHEELER PA-C [facility] 02-17-2024 Miscellaneous Notes The following approved medication requests have been transmitted electronically. Requested Prescriptions Signed Prescriptions Disp Refills Phentermine HCl 37.5 mg capsule 30 capsule 2 Sig: Take 1 capsule by mouth once daily for 90 days. BMI 30.57 Authorizing Provider: THERESA WHEELER PA-C Prescription Refill Information The patient has been identified by name and date of : Yes Caregiver verified no other encounters exist for this prescription request: Yes Caregiver confirmed with patient/requestor that no other refills are due, in the near future, with this provider at this time: Yes The last office visit in the department: 01/23/24 Does the patient have a future office visit with this provider/department: Yes, 02/20/24 Requested Prescriptions Pending Prescriptions Disp Refills Phentermine HCl 37.5 mg capsule 30 capsule 0 Sig: Take 1 capsule by mouth once daily for 90 days. BMI 30.57 Akil Guzman LPN February 16, 2024 11:06 AM documented in this encounter [facility] 02-16-2024 Telephone encounter Note Prescription Refill Information The patient has been identified by name and date of : Yes Caregiver verified no other encounters exist for this prescription request: Yes Caregiver confirmed with patient/requestor that no other refills are due, in the near future, with this provider at this time: Yes The last office visit in the department: 01/23/24 Does the patient have a future office visit with this provider/department: Yes, 02/20/24 Requested Prescriptions Pending Prescriptions Disp Refills Phentermine HCl 37.5 mg capsule 30 capsule 0 Sig: Take 1 capsule by mouth once daily for 90 days. BMI 30.57 Akil Guzman LPN February 16, 2024 11:06 AM [facility] 02-11-2024 Telephone encounter Note Patient was notified was approved: Authorization number: [id number] Authorized from February 11, 2024 to February 09, 2025 Information received electronically from fransisco Palomo MA [facility] 02-11-2024 Miscellaneous Notes Patient was notified was approved: Authorization number: [id number] Authorized from February 11, 2024 to February 09, 2025 Information received electronically from fransisco Palomo MA Resubmitted PA to see if we can get re-approved Gill Palomo MA Please inform patient of below Gigi Carrillo DO Images from the original note were not included. Electronic PA completed for mounajro 15mg. If you click on the med and review the denial you can review the answered questions. They were provided this this was covered previously and also provided the medicines tried.This was denied. See PA response from insurance ote from payer: Must meet all initial clinical criteria for subsequent authorizations. Coverage is provided when the member meets all the followin. Member has a history of at least 120 days of therapy with THREE preferred medications [ONE of the 120 day trials must be Byetta (5 mcg and 10 mcg), Victoza (18 MG/3 ML PEN)(Brand name is preferred by your plan) or Trulicity (0.75 mg, 1.5 mg, 3 mg and 4.5 mg)], which include but are not limited to: Farxiga 5 and 10 mg (Brand name is preferred by your plan), Glimepiride, Glipizide, Invokana 100 mg and 300 mg, Januvia, Jardiance 10 and 25 mg and Metformin IR and ER (generic of Glucophage XR) and, 2. Member has documented adherence and appropriate dose escalation (must achieve maximum recommended dose or document that maximum recommended dose is not tolerated or is clinically inappropriate). The member is missing one trial with a preferred drug at max or max tolerated dose for 120 days. The [facility] Policy for Medical Necessity as posted on the [facility] website and [place] Unified Preferred Drug List criteria were reviewed and per [place] Administrative Code Rule 5160-1-01 (C) and (B), a medically necessary service must include: generally accepted standards of medical practice, be clinically appropriate in administration, treatment and outcome and be the lowest cost alternative to effectively treat the condition. Please contact your provider to assist you with other treatment options that might be covered under your benefit package, or other services that might be available through the community. Payer: [facility] Electronic appeal: Not supported View History Notes Time User Attachment Attachment received from payer. 02/10/2024 9:17 AM [facility], Rx Priorauth In Document Pharmacy Benefits Open Encounter CANDELARIA GRANT - MEDICAID ([facility]) Covered: Retail, Mail Order Unknown: Specialty, Long-Term Care BIN: [id number] : 1985 Group ID: PCN: [id number] Legal sex: F Group name: Address: [address] [id number] Medication Being Authorized tirzepatide (MOUNJARO) 15 mg/0.5 mL pen injector Inject 15 mg subcutaneously one time a week. Dispense: 2 mL Refills: 2 Start: 02/09/2024 End: 05/09/2024 Class: Normal This order has been released to its destination. To be filled at: [facility] [address] [place] [phone] [facility] [phone] Prior Authorization History for tirzepatide (MOUNJARO) 15 mg/0.5 mL pen injector 7 months ago Approved documented in this encounter [facility] 02-11-2024 Telephone encounter Note Resubmitted PA to see if we can get re-approved Gill Palomo MA [facility] 02-11-2024 Telephone encounter Note Please inform patient of below Gigi Carrillo DO [facility] 02-10-2024 Telephone encounter Note Images from the original note were not included. Electronic PA completed for mounajro 15mg. If you click on the med and review the denial you can review the answered questions. They were provided this this was covered previously and also provided the medicines tried.This was denied. See PA response from insurance ote from payer: Must meet all initial clinical criteria for subsequent authorizations. Coverage is provided when the member meets all the followin. Member has a history of at least 120 days of therapy with THREE preferred medications [ONE of the 120 day trials must be Byetta (5 mcg and 10 mcg), Victoza (18 MG/3 ML PEN)(Brand name is preferred by your plan) or Trulicity (0.75 mg, 1.5 mg, 3 mg and 4.5 mg)], which include but are not limited to: Farxiga 5 and 10 mg (Brand name is preferred by your plan), Glimepiride, Glipizide, Invokana 100 mg and 300 mg, Januvia, Jardiance 10 and 25 mg and Metformin IR and ER (generic of Glucophage XR) and, 2. Member has documented adherence and appropriate dose escalation (must achieve maximum recommended dose or document that maximum recommended dose is not tolerated or is clinically inappropriate). The member is missing one trial with a preferred drug at max or max tolerated dose for 120 days. The [facility] Policy for Medical Necessity as posted on the [facility] website and [place] Unified Preferred Drug List criteria were reviewed and per [place] Administrative Code Rule 5160-1-01 (C) and (B), a medically necessary service must include: generally accepted standards of medical practice, be clinically appropriate in administration, treatment and outcome and be the lowest cost alternative to effectively treat the condition. Please contact your provider to assist you with other treatment options that might be covered under your benefit package, or other services that might be available through the community. Payer: [facility] Electronic appeal: Not supported View History Notes Time User Attachment Attachment received from payer. 02/10/2024 9:17 AM [facility], Rx Priorauth In Document Pharmacy Benefits Open Encounter CANDELARIA GRANT - MEDICAID ([facility]) Covered: Retail, Mail Order Unknown: Specialty, Long-Term Care BIN: [id number] : 1985 Group ID: PCN: [id number] Legal sex: F Group name: Address: [address] [place] [id number] Medication Being Authorized tirzepatide (MOUNJARO) 15 mg/0.5 mL pen injector Inject 15 mg subcutaneously one time a week. Dispense: 2 mL Refills: 2 Start: 02/09/2024 End: 05/09/2024 Class: Normal This order has been released to its destination. To be filled at: [facility] [address] [place] [phone] Prior Authorization History for tirzepatide (MOUNJARO) 15 mg/0.5 mL pen injector 7 months ago Approved [facility] 02-09-2024 Telephone encounter Note Prescription Refill Information The patient has been identified by name and date of : Yes Caregiver verified no other encounters exist for this prescription request: Yes Caregiver confirmed with patient/requestor that no other refills are due, in the near future, with this provider at this time: Yes The last office visit in the department: 11/21/2023 Does the patient have a future office visit with this provider/department: Yes Requested Prescriptions Pending Prescriptions Disp Refills tirzepatide (MOUNJARO) 15 mg/0.5 mL pen injector 2 mL 2 Sig: Inject 15 mg subcutaneously one time a week. Karley Philip LPN February 09, 2024 1:17 PM [facility] 02-09-2024 Miscellaneous Notes Prescription Refill Information The patient has been identified by name and date of : Yes Caregiver verified no other encounters exist for this prescription request: Yes Caregiver confirmed with patient/requestor that no other refills are due, in the near future, with this provider at this time: Yes The last office visit in the department: 11/21/2023 Does the patient have a future office visit with this provider/department: Yes Requested Prescriptions Pending Prescriptions Disp Refills tirzepatide (MOUNJARO) 15 mg/0.5 mL pen injector 2 mL 2 Sig: Inject 15 mg subcutaneously one time a week. Karley Philip LPN February 09, 2024 1:17 PM documented in this encounter [facility] 02-08-2024 Note HNO ID: [id number] Author: JESSICA CHANDLER APRN.[facility] Service: ? Author Type: Nurse Practitioner Type: Progress Notes Filed: 02/08/2024 14:54 Note Text: This note was created using NoteWriter. Subjective Candelaria Grant is a 38 year old female. 38 year old female with PMH migraine, DM, hyperlipidemia presents for possible UTI and concerns for sexually transmitted disease. Acute onset x 1 day +burning Denies N/V/D Denies fever or chills Denies vaginal discharge Denies vaginal bleeding LMP-a couple weeks ago IUD Presents stating she feels her current partner isn't being entirely truthful She was tested for STI's 02/02/24 Negative The history is provided by the patient. No english language learner teacher was used. UTI This is a new problem. The current episode started yesterday. The problem occurs every urination. The problem has not changed since onset.The quality of the pain is described as burning. The pain is at a severity of 5/10. There has been no fever. She is Sexually active. There is No history of pyelonephritis. Associated symptoms include urgency. Pertinent negatives include no chills, no sweats, no nausea, no vomiting, no discharge, no frequency, no hematuria, no hesitancy, no possible and no flank pain. She has tried nothing for the symptoms. Her past medical history does not include kidney stones, single kidney, urological procedure, recurrent UTIs, urinary stasis or catheterization. PAST MEDICAL HISTORY Diagnosis Date Abnormal Pap smear of cervix ascus cannot rule out high grade Diabetes mellitus type 2 in obese Migraine headache Obesity PAST SURGICAL HISTORY Procedure Laterality Date SECTION HX 03/24/2013 CHOLECYSTECTOMY HX INSERTION OF IUD 2017 Mirena IUD removed 10/20/2020 KYLEENA IUD 10/20/2020 LYSIS OF ADHESIONS 07/04/2023 NEXPLANON INSERTION 05/10/2013 OSTECTOMY CALCANEUS SPUR W/WO PLNTAR FASCIAL RLS Left Dr. Jimenez REPAIR OF NASAL SEPTUM SALPINGECTOMY Bilateral 07/04/2023 Laparoscopic B/L Salpingectomy at [facility]-Dr. Condon ALLERGIES Macadamia Nut Oil and Meloxicam MEDICATIONS EPINEPHrine (EPIPEN) 0.3 mg/0.3 mL auto-injector Use for allergic reaction pantoprazole DR (PROTONIX) 40 mg tablet Take 1 tablet by mouth daily before breakfast. Take on empty stomach, 1/2 hr before meal. nystatin (MYCOSTATIN) 100,000 unit/mL suspension 5 mL four times daily. Swish/swallow or swish/expectorate Phentermine HCl 37.5 mg capsule Take 1 capsule by mouth once daily for 90 days. BMI 30.57 metFORMIN ER (GLUCOPHAGE XR) 500 mg 24 hr tablet Take 1 tablet by mouth two times a day. tirzepatide (MOUNJARO) 15 mg/0.5 mL pen injector Inject 15 mg subcutaneously one time a week. colestipol (COLESTID) 1 gram tablet Take 1 tablet by mouth once daily. For Diarrhea Post Gall Bladder Removal levonorgestrel (KYLEENA) 17.5 mcg/24 hrs (5 yrs) 19.5 mg IUD 1 Each by INTRAUTERINE route one time only. flash glucose sensor (HealthQxSTYLE EMILIA 14 DAY SENSOR) kit Apply and use as directed. Dx: Uncontrolled type 2 diabetes without insulin. flash glucose scanning reader (HealthQxSTYLE EMILIA 3 READER) 1 Each once daily. Lancets lancets Test blood sugar(s)2 times daily. Dx: uncontrolled type 2 DM insulin needles, DISPOSABLE, (BD INSULIN PEN NEEDLE UF) 31 gauge x 5/16" use once daily as directed blood sugar diagnostic (BLOOD GLUCOSE TEST) test strip Test blood sugar(s) 2 times daily. Dx: uncontrolled type 2 DM Phenyleph-Shark Bpb-Ukiz-Efl (HEMORRHOIDAL) 0.25-3-12 % crea by RECTAL route twice daily. FAMILY HISTORY Problem Relation Age of Onset No Known Problems Mother Cancer Father pancreatic and renal. Anesthesia Problems Father slow emergence, PONV No Known Problems Brother No Known Problems Son Breast Cancer Maternal Aunt Cervical Cancer Paternal Aunt x2- and one cousin No Known Problems Maternal Grandmother Diabetes Maternal Grandfather Diabetes Paternal Grandfather other (lymphomia) Other maternal cousin other (leukemia) Other cousin Social History Tobacco Use Smoking status: Never Smokeless tobacco: Never Vaping Use Vaping status: Never Used Substance Use Topics Alcohol use: Yes Comment: Rarely Drug use: No Review of Systems Constitutional: Negative for chills, fatigue and fever. Eyes: Negative for pain, discharge and itching. Respiratory: Negative for apnea, cough, choking, chest tightness and shortness of breath. Cardiovascular: Negative for chest pain, palpitations and leg swelling. Gastrointestinal: Negative for abdominal pain, diarrhea, nausea and vomiting. Genitourinary: Positive for dysuria and urgency. Negative for flank pain, frequency, hematuria and hesitancy. Musculoskeletal: Negative for back pain and gait problem. Skin: Negative for color change, pallor and rash. Allergic/Immunologic: Negative for environmental allergies, food allergies and immunocompromised state. Neurologic (more content not included)... [facility] 02-08-2024 History of Presen t illness Narrative This note was created using Bloggerceriter. Subjective Candelaria Grant is a 38 year old female. 38 year old female with PMH migraine, DM, hyperlipidemia presents for possible UTI and concerns for sexually transmitted disease. Acute onset x 1 day +burning Denies N/V/D Denies fever or chills Denies vaginal discharge Denies vaginal bleeding LMP-a couple weeks ago IUD Presents stating she feels her current partner isn't being entirely truthful She was tested for STI's 02/02/24 Negative The history is provided by the patient. No english language learner teacher was used. UTI This is a new problem. The current episode started yesterday. The problem occurs every urination. The problem has not changed since onset.The quality of the pain is described as burning. The pain is at a severity of 5/10. There has been no fever. She is Sexually active. There is No history of pyelonephritis. Associated symptoms include urgency. Pertinent negatives include no chills, no sweats, no nausea, no vomiting, no discharge, no frequency, no hematuria, no hesitancy, no possible and no flank pain. She has tried nothing for the symptoms. Her past medical history does not include kidney stones, single kidney, urological procedure, recurrent UTIs, urinary stasis or catheterization. PAST MEDICAL HISTORY Diagnosis Date Abnormal Pap smear of cervix ascus cannot rule out high grade Diabetes mellitus type 2 in obese Migraine headache Obesity PAST SURGICAL HISTORY Procedure Laterality Date SECTION HX 03/24/2013 CHOLECYSTECTOMY HX INSERTION OF IUD 2017 Mirena IUD removed 10/20/2020 KYLEENA IUD 10/20/2020 LYSIS OF ADHESIONS 07/04/2023 NEXPLANON INSERTION 05/10/2013 OSTECTOMY CALCANEUS SPUR W/WO PLNTAR FASCIAL RLS Left Dr. Jimenez REPAIR OF NASAL SEPTUM SALPINGECTOMY Bilateral 07/04/2023 Laparoscopic B/L Salpingectomy at [facility]-Dr. Condon ALLERGIES Macadamia Nut Oil and Meloxicam MEDICATIONS EPINEPHrine (EPIPEN) 0.3 mg/0.3 mL auto-injector Use for allergic reaction pantoprazole DR (PROTONIX) 40 mg tablet Take 1 tablet by mouth daily before breakfast. Take on empty stomach, 1/2 hr before meal. nystatin (MYCOSTATIN) 100,000 unit/mL suspension 5 mL four times daily. Swish/swallow or swish/expectorate Phentermine HCl 37.5 mg capsule Take 1 capsule by mouth once daily for 90 days. BMI 30.57 metFORMIN ER (GLUCOPHAGE XR) 500 mg 24 hr tablet Take 1 tablet by mouth two times a day. tirzepatide (MOUNJARO) 15 mg/0.5 mL pen injector Inject 15 mg subcutaneously one time a week. colestipol (COLESTID) 1 gram tablet Take 1 tablet by mouth once daily. For Diarrhea Post Gall Bladder Removal levonorgestrel (KYLEENA) 17.5 mcg/24 hrs (5 yrs) 19.5 mg IUD 1 Each by INTRAUTERINE route one time only. flash glucose sensor (FREESTYLE EMILIA 14 DAY SENSOR) kit Apply and use as directed. Dx: Uncontrolled type 2 diabetes without insulin. flash glucose scanning reader (FREESTYLE EMILIA 3 READER) 1 Each once daily. Lancets lancets Test blood sugar(s)2 times daily. Dx: uncontrolled type 2 DM insulin needles, DISPOSABLE, (BD INSULIN PEN NEEDLE UF) 31 gauge x 5/16" use once daily as directed blood sugar diagnostic (BLOOD GLUCOSE TEST) test strip Test blood sugar(s) 2 times daily. Dx: uncontrolled type 2 DM Phenyleph-Shark Kpl-Bfnl-Emy (HEMORRHOIDAL) 0.25-3-12 % crea by RECTAL route twice daily. FAMILY HISTORY Problem Relation Age of Onset No Known Problems Mother Cancer Father pancreatic and renal. Anesthesia Problems Father slow emergence, PONV No Known Problems Brother No Known Problems Son Breast Cancer Maternal Aunt Cervical Cancer Paternal Aunt x2- and one cousin No Known Problems Maternal Grandmother Diabetes Maternal Grandfather Diabetes Paternal Grandfather other (lymphomia) Other maternal cousin other (leukemia) Other cousin Social History Tobacco Use Smoking status: Never Smokeless tobacco: Never Vaping Use Vaping status: Never Used Substance Use Topics Alcohol use: Yes Comment: Rarely Drug use: No Review of Systems Constitutional: Negative for chills, fatigue and fever. Eyes: Negative for pain, discharge and itching. Respiratory: Negative for apnea, cough, choking, chest tightness and shortness of breath. Cardiovascular: Negative for chest pain, palpitations and leg swelling. Gastrointestinal: Negative for abdominal pain, diarrhea, nausea and vomiting. Genitourinary: Positive for dysuria and urgency. Negative for flank pain, frequency, hematuria and hesitancy. Musculoskeletal: Negative for back pain and gait problem. Skin: Negative for color change, pallor and rash. Allergic/Immunologic: Negative for environmental allergies, food allergies and immunocompromised state. Neurological: Negative for dizziness, facial asymmetry, light-headedness and headaches. Hematological: Negative for adenopathy. Does not bruise/bleed easily. Psychiatric/Behavioral: Negative for agitation and behavioral problems. Objective BP 148/86 Temp 36.6 C (97.9 F) (Tympanic) Wt 86 kg (189 lb 9.5 oz) LMP 10/11/2023 (Approximate) BMI 28.00 kg/m Physical Exam Vitals and nursing note reviewed. Constitutional: General: She is not in acute distress. Appearance: Normal appearance. She is normal weight. She is not ill-appearing, toxic-appearing or diaphoretic. HENT: Head: Normocephalic and atraumatic. Right Ear: Ear canal and external ear normal. Left Ear: Ear canal and external ear normal. Nose: Nose normal. No congestion or rhinorrhea. Mouth/Throat: Mouth: Mucous membranes are moist. Pharynx: No oropharyngeal exudate or posterior oropharyngeal erythema. Eyes: General: Right eye: No discharge. Left eye: No discharge. Extraocular Movements: Extraocular movements intact. Conjunctiva/sclera: Conjunctivae normal. Pupils: Pupils are equal, round, and reactive to light. Cardiovascular: Rate and Rhythm: Normal rate and regular rhythm. Pulses: Normal pulses. Heart sounds: Normal heart sounds. No murmur heard. No friction rub. Pulmonary: Effort: Pulmonary effort is normal. No respiratory distress. Breath sounds: Normal breath sounds. No stridor. No wheezing, rhonchi or rales. Chest: Chest wall: No tenderness. Abdominal: General: Abdomen is flat. There is no distension. Palpations: Abdomen is soft. There is no mass. Tenderness: There is no abdominal tenderness. There is no right CVA tenderness, left CVA tenderness, guarding or rebound. Hernia: No hernia is present. Genitourinary: Comments: Declines pelvic Self swabs obtained Musculoskeletal: General: No swelling, tenderness, deformity or signs of injury. Normal range of motion. Cervical back: Normal range of motion and neck supple. No rigidity. Right lower leg: No edema. Left lower leg: No edema. Lymphadenopathy: Cervical: No cervical adenopathy. Skin: General: Skin is warm and dry. Capillary Refill: Capillary refill takes less than 2 seconds. Coloration: Skin is not jaundiced or pale. Findings: No bruising, erythema, lesion or rash. Neurological: General: No focal deficit present. Mental Status: She is alert and oriented to person, place, and time. Cranial Nerves: No cranial nerve deficit. Sensory: No sensory deficit. Motor: No weakness. Coordination: Coordination normal. Gait: Gait normal. Psychiatric: Mood and Affect: Mood normal. Behavior: Behavior normal. Thought Content: Thought content normal. Judgment: Judgment normal. Assessment and Plan ASSESSMENT/PLAN: 1. Burning with urination - ICD9: 788.1, ICD10: R30.0 (primary diagnosis) acute - UA positive for proteinuria - Send urine for culture - Patient education for prevention given - UA DIP, URINE (POC) - URINE CULTURE - MARCELO/TRICHOMONAS NAAT - BACTERIAL VAGINOSIS NAAT - GONORRHEA/CHLAMYDIA NAAT 2. Encounter for screening for bacterial sexually transmitted disease - ICD9: V74.5, ICD10: Z11.3 Denies symptoms Presents with similar on 02/02/24 She feels her partner is not being honest - MARCELO/TRICHOMONAS NAAT - BACTERIAL VAGINOSIS NAAT - GONORRHEA/CHLAMYDIA NAAT The above were obtained and pending Jessica Chandler APRN.GUM COOK documented in this encounter [facility] 02-02-2024 Note HNO ID: [id number] Author: MARIA R MARLEY PA-C Service: ? Author Type: Physician Radiology Scheduler Type: Progress Notes Filed: 02/02/2024 19:18 Note Text: This note was created using NoteWriter. Subjective Candelaria Grant is a 38 year old female. HPI Presents with a chief complaint of possible thrush. She has been treated off-and-on for thrush since October. She did have a swab in December which was positive for Marcelo. She is currently on fluconazole with a few tabs left and feels like it is coming back worse. She is a diabetic but A1c was 5.5 last. She uses a denture on the bottom but cleans it with the disinfectant tab and toothpaste. She denies recent illness. Denies using an inhaler. Patient also would like an STD test as she was told her boyfriend had to get treated for possible STD today. She is not sure what STD. She is not having any vaginal symptoms. Last menstrual cycle was last week. She has had a tubal ligation. She also has an IUD. Denies chance of . Review of Systems Constitutional: Negative. HENT: Mouth pain Respiratory: Negative. Cardiovascular: Negative. Gastrointestinal: Negative. Genitourinary: Negative. Musculoskeletal: Negative. All other systems reviewed and are negative. PAST MEDICAL HISTORY Diagnosis Date Abnormal Pap smear of cervix ascus cannot rule out high grade Diabetes mellitus type 2 in obese Migraine headache Obesity Current Outpatient Medications Medication Sig Dispense Refill fluconazole (DIFLUCAN) 100 mg tablet Take 2 tablets by mouth once daily for 1 day, THEN 1 tablet once daily for 14 days. 16 tablet 0 EPINEPHrine (EPIPEN) 0.3 mg/0.3 mL auto-injector Use for allergic reaction [address] (PROTONIX) 40 mg tablet Take 1 tablet by mouth daily before breakfast. Take on empty stomach, 1/2 hr before meal. 90 tablet 1 Phentermine HCl 37.5 mg capsule Take 1 capsule by mouth once daily for 90 days. BMI 30.57 30 capsule 0 metFORMIN ER (GLUCOPHAGE XR) 500 mg 24 hr tablet Take 1 tablet by mouth two times a day. 180 tablet 1 tirzepatide (MOUNJARO) 15 mg/0.5 mL pen injector Inject 15 mg subcutaneously one time a week. 2 mL 2 colestipol (COLESTID) 1 gram tablet Take 1 tablet by mouth once daily. For Diarrhea Post Gall Bladder Removal 90 tablet 1 levonorgestrel (KYLEENA) 17.5 mcg/24 hrs (5 yrs) 19.5 mg IUD 1 Each by INTRAUTERINE route one time only. flash glucose sensor (FREESTYLE EMILIA 14 DAY SENSOR) kit Apply and use as directed. Dx: Uncontrolled type 2 diabetes without insulin. 1 Kit 3 flash glucose scanning reader (FREESTYLE EMILIA 3 READER) 1 Each once daily. 1 Each 5 Lancets lancets Test blood sugar(s)2 times daily. Dx: uncontrolled type 2 DM 100 Each 11 insulin needles, DISPOSABLE, (BD INSULIN PEN NEEDLE UF) 31 gauge x 5/16" use once daily as directed 100 Each 1 blood sugar diagnostic (BLOOD GLUCOSE TEST) test strip Test blood sugar(s) 2 times daily. Dx: uncontrolled type 2 DM 50 Strip 11 nystatin (MYCOSTATIN) 100,000 unit/mL suspension 5 mL four times daily. Swish/swallow or swish/expectorate (Patient not taking: Reported on 02/02/2024) 200 mL 0 Phenyleph-Shark Ffw-Wivd-Amw (HEMORRHOIDAL) 0.25-3-12 % crea by RECTAL route twice daily. 52 g 1 No current facility-administered medications for this visit. PAST SURGICAL HISTORY Procedure Laterality Date SECTION HX 03/24/2013 CHOLECYSTECTOMY HX INSERTION OF IUD 2017 Mirena IUD removed 10/20/2020 KYLEENA IUD 10/20/2020 LYSIS OF ADHESIONS 07/04/2023 NEXPLANON INSERTION 05/10/2013 OSTECTOMY CALCANEUS SPUR W/WO PLNTAR FASCIAL RLS Left Dr. Jimenez REPAIR OF NASAL SEPTUM SALPINGECTOMY Bilateral 07/04/2023 Laparoscopic B/L Salpingectomy at [facility]-Dr. Condon FAMILY HISTORY Problem Relation Age of Onset No Known Problems Mother Cancer Father pancreatic and renal. Anesthesia Problems Father slow emergence, PONV No Known Problems Brother No Known Problems Son Breast Cancer Maternal Aunt Cervical Cancer Paternal Aunt x2- and one cousin No Known Problems Maternal Grandmother Diabetes Maternal Grandfather Diabetes Paternal Grandfather other (lymphomia) Other maternal cousin other (leukemia) Other cousin Social History Tobacco Use Smoking status: Never Smokeless tobacco: Never Vaping Use Vaping status: Never Used Substance Use Topics Alcohol use: Yes Comment: Rarely Drug use: No Objective BP 126/84 Pulse 84 Temp 36.4 ?C (97.6 ?F) Resp 16 Wt 89.1 kg (196 lb 6.9 oz) LMP 10/11/2023 (Approximate) SpO2 99% BMI 29.01 kg/m? Physical Exam Vitals reviewed. Constitutional: Appearance: Normal appearance. HENT: Head: Normocephalic and atraumatic. Mouth/Throat: Comments: Exam of the mouth reveals some irritation from the corner of the denture on the left cheek area. No erythema or white plaques on her tongue. Neurological: General: No focal deficit present. Mental Status: She i (more content not included)... [facility] 02-02-2024 History of Presen t illness Narrative This note was created using Skulpt. Subjective Candelaria Grant is a 38 year old female. HPI Presents with a chief complaint of possible thrush. She has been treated off-and-on for thrush since October. She did have a swab in December which was positive for Marcelo. She is currently on fluconazole with a few tabs left and feels like it is coming back worse. She is a diabetic but A1c was 5.5 last. She uses a denture on the bottom but cleans it with the disinfectant tab and toothpaste. She denies recent illness. Denies using an inhaler. Patient also would like an STD test as she was told her boyfriend had to get treated for possible STD today. She is not sure what STD. She is not having any vaginal symptoms. Last menstrual cycle was last week. She has had a tubal ligation. She also has an IUD. Denies chance of . Review of Systems Constitutional: Negative. HENT: Mouth pain Respiratory: Negative. Cardiovascular: Negative. Gastrointestinal: Negative. Genitourinary: Negative. Musculoskeletal: Negative. All other systems reviewed and are negative. PAST MEDICAL HISTORY Diagnosis Date Abnormal Pap smear of cervix ascus cannot rule out high grade Diabetes mellitus type 2 in obese Migraine headache Obesity Current Outpatient Medications Medication Sig Dispense Refill fluconazole (DIFLUCAN) 100 mg tablet Take 2 tablets by mouth once daily for 1 day, THEN 1 tablet once daily for 14 days. 16 tablet 0 EPINEPHrine (EPIPEN) 0.3 mg/0.3 mL auto-injector Use for allergic reaction [address] (PROTONIX) 40 mg tablet Take 1 tablet by mouth daily before breakfast. Take on empty stomach, 1/2 hr before meal. 90 tablet 1 Phentermine HCl 37.5 mg capsule Take 1 capsule by mouth once daily for 90 days. BMI 30.57 30 capsule 0 metFORMIN ER (GLUCOPHAGE XR) 500 mg 24 hr tablet Take 1 tablet by mouth two times a day. 180 tablet 1 tirzepatide (MOUNJARO) 15 mg/0.5 mL pen injector Inject 15 mg subcutaneously one time a week. 2 mL 2 colestipol (COLESTID) 1 gram tablet Take 1 tablet by mouth once daily. For Diarrhea Post Gall Bladder Removal 90 tablet 1 levonorgestrel (KYLEENA) 17.5 mcg/24 hrs (5 yrs) 19.5 mg IUD 1 Each by INTRAUTERINE route one time only. flash glucose sensor (FREESTYLE EMILIA 14 DAY SENSOR) kit Apply and use as directed. Dx: Uncontrolled type 2 diabetes without insulin. 1 Kit 3 flash glucose scanning reader (FREESTYLE EMILIA 3 READER) 1 Each once daily. 1 Each 5 Lancets lancets Test blood sugar(s)2 times daily. Dx: uncontrolled type 2 DM 100 Each 11 insulin needles, DISPOSABLE, (BD INSULIN PEN NEEDLE UF) 31 gauge x 5/16" use once daily as directed 100 Each 1 blood sugar diagnostic (BLOOD GLUCOSE TEST) test strip Test blood sugar(s) 2 times daily. Dx: uncontrolled type 2 DM 50 Strip 11 nystatin (MYCOSTATIN) 100,000 unit/mL suspension 5 mL four times daily. Swish/swallow or swish/expectorate (Patient not taking: Reported on 02/02/2024) 200 mL 0 Phenyleph-Shark Apr-Wwyk-Wtx (HEMORRHOIDAL) 0.25-3-12 % crea by RECTAL route twice daily. 52 g 1 No current facility-administered medications for this visit. PAST SURGICAL HISTORY Procedure Laterality Date SECTION HX 03/24/2013 CHOLECYSTECTOMY HX INSERTION OF IUD 2017 Mirena IUD removed 10/20/2020 KYLEENA IUD 10/20/2020 LYSIS OF ADHESIONS 07/04/2023 NEXPLANON INSERTION 05/10/2013 OSTECTOMY CALCANEUS SPUR W/WO PLNTAR FASCIAL RLS Left Dr. Jimenez REPAIR OF NASAL SEPTUM SALPINGECTOMY Bilateral 07/04/2023 Laparoscopic B/L Salpingectomy at [facility]-Dr. Condon FAMILY HISTORY Problem Relation Age of Onset No Known Problems Mother Cancer Father pancreatic and renal. Anesthesia Problems Father slow emergence, PONV No Known Problems Brother No Known Problems Son Breast Cancer Maternal Aunt Cervical Cancer Paternal Aunt x2- and one cousin No Known Problems Maternal Grandmother Diabetes Maternal Grandfather Diabetes Paternal Grandfather other (lymphomia) Other maternal cousin other (leukemia) Other cousin Social History Tobacco Use Smoking status: Never Smokeless tobacco: Never Vaping Use Vaping status: Never Used Substance Use Topics Alcohol use: Yes Comment: Rarely Drug use: No Objective BP 126/84 Pulse 84 Temp 36.4 C (97.6 F) Resp 16 Wt 89.1 kg (196 lb 6.9 oz) LMP 10/11/2023 (Approximate) SpO2 99% BMI 29.01 kg/m Physical Exam Vitals reviewed. Constitutional: Appearance: Normal appearance. HENT: Head: Normocephalic and atraumatic. Mouth/Throat: Comments: Exam of the mouth reveals some irritation from the corner of the denture on the left cheek area. No erythema or white plaques on her tongue. Neurological: General: No focal deficit present. Mental Status: She is alert and oriented to person, place, and time. Assessment and Plan ASSESSMENT/PLAN: 1. Thrush - ICD9: 112.0, ICD10: B37.0 (primary diagnosis) Recommended at this point she follow-up with ENT for recurrent thrush. She still has fluconazole that she is taking, may continue this. I did also swab for oral gonorrhea and chlamydia due to possible exposure from her boyfriend. - CONSULT TO ENT 2. Screening for STD (sexually transmitted disease) - ICD9: V74.5, ICD10: Z11.3 Self swab vaginally were obtained as well. Will call on results. - GONORRHEA/CHLAMYDIA NAAT - GONORRHEA/CHLAMYDIA NAAT - MARCELO/TRICHOMONAS NAAT Maria R Marley PA-C documented in this encounter [facility] 01-23-2024 History of Presen t illness Narrative Chief Complaint Patient presents with: Acute Visit: Thrush back of tongue HPI Candelaria Maximo Grant is a 38 year old female who presents here today for Above Complaints. follow up for thrush. Patient here with complaints of thrush. Patient has been dealing this for a few months. Stating that she cannot take nystatin as it causes her to vomit. She was treated with 5 days of Diflucan 100 mg once daily. [place] like she got some improvement in her return. This patient has a history of diabetes. Last hemoglobin A1c very well-controlled at 5.6%. Patient had recent lab work completed which was okay. Also feels like she has discharge from her umbilicus but this has resolved. Mentions that she has a symptom of something in her throat. Intermittent. She states that it started after getting her Mounjaro dose increased, then accompanied by eating [employer]. Next day she woke up with reflux, rotten egg taste in her mouth. She previously was on Protonix 40 mg once daily but is discontinued. Wondering if she needs to continue this medication. Requesting refill of EpiPen. Past medical history, appointments, medications, allergies reviewed. EXAM: BP 140/92 Pulse 80 Resp 16 Wt 84.4 kg (186 lb) LMP 10/11/2023 (Approximate) SpO2 96% BMI 27.47 kg/m General Appearance: Well appearing, alert, in no acute distress, well-hydrated, well nourished.. Skin: inner umbilicus is slightly red. Oropharynx: Positive findings: Tongue is white, coated thick, unable to be removed with tongue blade.. Neck: normal, supple, no adenopathy, and thyroid normal size, non-tender, without nodularity Latest Ref Rng 10/22/2023 01/19/2024 WBC 3.70 - 11.00 k/uL 10.06 RBC 3.90 - 5.20 m/uL 4.21 Hemoglobin 11.5 - 15.5 g/dL 12.7 Hematocrit 36.0 - 46.0 % 38.3 MCV 80.0 - 100.0 fL 91.0 MCH 26.0 - 34.0 pg 30.2 MCHC 30.5 - 36.0 g/dL 33.2 RDW-CV 11.5 - 15.0 % 11.9 Platelet Count 150 - 400 k/uL 282 MPV 9.0 - 12.7 fL 10.1 Neut% % 53.7 Abs Neut (ANC) 1.45 - 7.50 k/uL 5.40 Lymph% % 28.7 Abs Lymph 1.00 - 4.00 k/uL 2.89 Island% % 5.7 Abs Island <0.87 k/uL 0.57 Eosin% % 10.5 Abs Eosin <0.46 k/uL 1.06 (H) Baso% % 1.1 Abs Baso <0.11 k/uL 0.11 (H) Immature Gran % % 0.3 IMMATURE GRANS (ABS) <0.10 k/uL 0.03 NRBC /100 WBC 0.0 Absolute nRBC <0.01 k/uL <0.01 DTYPE Auto Protein, Total 6.3 - 8.0 g/dL 7.1 Albumin 3.9 - 4.9 g/dL 4.2 Calcium 8.5 - 10.2 mg/dL 9.4 Bilirubin, Total 0.2 - 1.3 mg/dL 0.3 Alkaline Phosphatase 34 - 123 U/L 68 AST 13 - 35 U/L 16 ALT 7 - 38 U/L 15 Glucose 74 - 99 mg/dL 123 (H) BUN 7 - 21 mg/dL 10 Creatinine 0.58 - 0.96 mg/dL 0.64 Sodium 136 - 144 mmol/L 136 Potassium 3.7 - 5.1 mmol/L 3.7 Chloride 98 - 107 mmol/L 101 CO2 22 - 30 mmol/L 24 Anion Gap 8 - 15 mmol/L 11 eGFR >=60 mL/min/1.73m 115 Hemoglobin A1C 4.3 - 5.6 % 5.6 Estimated Average Glucose mg/dL 114 Amylase 30 - 104 U/L 35 Lipase 16 - 61 U/L 25 ASSESSMENT/PLAN: 1. Thrush - ICD9: 112.0, ICD10: B37.0 (primary diagnosis) -Cannot tolerate nystatin. Had some improvement with 5 days of Diflucan 100 mg. Trial longer regimen. Diabetes has been well-controlled. - FLUCONAZOLE 100 MG TABLET 2. Allergic reaction, subsequent encounter - ICD9: V58.89, 995.3, ICD10: T78.40XD -Stable, continue as needed use. - EPINEPHRINE 0.3 MG/0.3 ML INJECTION, AUTO-INJECTOR 3. Heart burn - ICD9: 787.1, ICD10: R12 -Secondary side effects of Mounjaro? She was previously not demonstrating this symptom with Protonix. Now that she is off the Protonix she has heartburn, globus sensation. Trial getting back on Protonix. Follow-up with PCP team in February as scheduled. - PANTOPRAZOLE 40 MG TABLET,DELAYED RELEASE 4. Globus sensation - ICD9: 784.99, ICD10: R09.A2 -Likely secondary to #3. Trial getting back on Protonix. If this continues then consider referral to GI. - PANTOPRAZOLE 40 MG TABLET,DELAYED RELEASE Kevin Witt APRN.CNP RTO as scheduled in February with PCP team This note was partly generated using Alo7 voice recognition dictation and may contain some misspelled or inaccurate words missed on review. documented in this encounter [facility] 01-22-2024 Telephone encounter Note Patient returned call and scheduled a follow up tomorrow with Edith Witt at 7:20 [facility] 01-22-2024 Miscellaneous Notes Patient returned call and scheduled a follow up tomorrow with Edith Witt at 7:20 Called and left a voicemail for the Patient to call back and ask for a nurse to receive the providers message. Luci Alba RN Please make her a follow up Gigi Carrillo DO Pt reports she has the Nystatin Swish and she vomit's this up. Requesting something else. Please advise pt. Karla Aldana LPN We can do nystatin swish and swallow 4 x day until RX finished. Spoke with pt and information listed below given. Pt verbalizes understanding. Pt wants to know what to do next. She thought she was getting better but it is still there. Thrush. Please advise pt. Karla Aldana LPN ----- Message from Karley Jimenez sent at 01/20/2024 2:54 PM EST ----- Labs ok. Liver function ok. Pancreas also, normal.Blood counts normal. documented in this encounter [facility] 01-22-2024 Telephone encounter Note Called and left a voicemail for the Patient to call back and ask for a nurse to receive the providers message. Luci Alba RN [facility] 01-21-2024 Telephone encounter Note Please make her a follow up Gigi Carrillo DO [facility] 01-21-2024 Telephone encounter Note Pt reports she has the Nystatin Swish and she vomit's this up. Requesting something else. Please advise pt. Karla Aldana LPN [facility] 01-20-2024 Telephone encounter Note We can do nystatin swish and swallow 4 x day until RX finished. [facility] 01-20-2024 Telephone encounter Note Spoke with pt and information listed below given. Pt verbalizes understanding. Pt wants to know what to do next. She thought she was getting better but it is still there. Thrush. Please advise pt. Karla Aldana LPN [facility] 01-20-2024 Telephone encounter Note ----- Message from Karley Jimenez sent at 01/20/2024 2:54 PM EST ----- Labs ok. Liver function ok. Pancreas also, normal.Blood counts normal. [facility] 01-19-2024 Telephone encounter Note Called and spoke with patient and she verbalized understanding. Ibeth Mederos MA [facility] 01-19-2024 Miscellaneous Notes Called and spoke with patient and she verbalized understanding. Ibeth Mederos MA Addended by: KARLEY JIMENEZ on: 01/19/2024 01:58 PM Modules accepted: Orders I already treated her for marcelo/ thrush. If she is having nausea and vomiting, we need more labs to look for pancreatitis. She needs to STOP Mounjaro immediately. I will place lab orders for pancreas. She could also go to ER if needed. Should she come in sooner to be evaluated for thrush? She is not wanting to wait until February appointment. Ibeth Mederos MA I bet that is more darn fungus. When you do the daily wash, get the belly button, too. Interesting that you are having so much problem with fungus. We will get ahead of it. You may need a referral to derm. Lets give it some time (until your Feb. Appt.). Saige please review pt message and picture sent in. Pt seen by you on 01/12/24. Macy Espinal MA documented in this encounter [facility] 01-19-2024 Note Addended by: KARLEY JIMENEZ on: 01/19/2024 01:58 PM Modules accepted: Orders [facility] 01-19-2024 Telephone encounter Note I already treated her for marcelo/ thrush. If she is having nausea and vomiting, we need more labs to look for pancreatitis. She needs to STOP Mounjaro immediately. I will place lab orders for pancreas. She could also go to ER if needed. [facility] 01-19-2024 Telephone encounter Note Should she come in sooner to be evaluated for thrush? She is not wanting to wait until February appointment. Ibeth Mederos MA [facility] 01-19-2024 Telephone encounter Note I bet that is more darn fungus. When you do the daily wash, get the belly button, too. Interesting that you are having so much problem with fungus. We will get ahead of it. You may need a referral to derm. Lets give it some time (until your Dec. Appt.). [facility] 01-19-2024 Telephone encounter Note Saige please review pt message and picture sent in. Pt seen by you on 01/12/24. Macy Espinal MA [facility] 01-14-2024 Telephone encounter Note The following approved medication requests have been transmitted electronically. Requested Prescriptions Signed Prescriptions Disp Refills Phentermine HCl 37.5 mg capsule 30 capsule 0 Sig: Take 1 capsule by mouth once daily for 90 days. BMI 30.57 Authorizing Provider: ILANA HERRERA APRN.CNP PDMP website checked and validated. All prescriptions have been APPROPRIATELY filled. No suspicious activity was identified. 01/14/2024 by Ilana Herrera CNP. [facility] 01-14-2024 Miscellaneous Notes The following approved medication requests have been transmitted electronically. Requested Prescriptions Signed Prescriptions Disp Refills Phentermine HCl 37.5 mg capsule 30 capsule 0 Sig: Take 1 capsule by mouth once daily for 90 days. BMI 30.57 Authorizing Provider: ILANA HERRERA APRN.CNP PDMP website checked and validated. All prescriptions have been APPROPRIATELY filled. No suspicious activity was identified. 01/14/2024 by Ilana Herrera CNP. Prescription Refill Information The patient has been identified by name and date of : Yes Caregiver verified no other encounters exist for this prescription request: Yes Caregiver confirmed with patient/requestor that no other refills are due, in the near future, with this provider at this time: Yes The last office visit in the department: 01/12/24 Does the patient have a future office visit with this provider/department: Yes, 02/20/24 Requested Prescriptions Pending Prescriptions Disp Refills Phentermine HCl 37.5 mg capsule 30 capsule 0 Sig: Take 1 capsule by mouth once daily for 90 days. BMI 30.57 Akil Guzman LPN January 14, 2024 9:35 AM documented in this encounter [facility] 01-14-2024 Telephone encounter Note Prescription Refill Information The patient has been identified by name and date of : Yes Caregiver verified no other encounters exist for this prescription request: Yes Caregiver confirmed with patient/requestor that no other refills are due, in the near future, with this provider at this time: Yes The last office visit in the department: 01/12/24 Does the patient have a future office visit with this provider/department: Yes, 02/20/24 Requested Prescriptions Pending Prescriptions Disp Refills Phentermine HCl 37.5 mg capsule 30 capsule 0 Sig: Take 1 capsule by mouth once daily for 90 days. BMI 30.57 Akil Guzman LPN January 14, 2024 9:35 AM [facility] 01-13-2024 Telephone encounter Note Pt notified of results via [facility] Pat Godoy Ma [facility] 01-13-2024 Telephone encounter Note ----- Message from Karley Jimenez sent at 01/13/2024 7:59 AM EDT ----- You are not diabetic. Kidney function, liver function, blood counts, B12, and magnesium are all normal. Please drink 64 ounces of water daily to flush your kidneys. They are very dry. It looks as though you are very dehydrated. [facility] 01-13-2024 Miscellaneous Notes Pt notified of results via [facility] Pat Godoy Ma ----- Message from Karley Jimenez sent at 01/13/2024 7:59 AM EDT ----- You are not diabetic. Kidney function, liver function, blood counts, B12, and magnesium are all normal. Please drink 64 ounces of water daily to flush your kidneys. They are very dry. It looks as though you are very dehydrated. documented in this encounter [facility] 01-12-2024 Instructions Karley Jimenez APRN.CNP - 01/12/2024 10:21 AM EDT 1) Fluconazole 100 mg daily for 7 days 2) Check labs today 3) Ketoconazole wash daily to face and neck for 14 days 4) See Katerina in Feb. As scheduled 5) Samples of Xyzal given documented in this encounter [facility] 01-12-2024 History of Presen t illness Narrative This is a 38 year old female who presents today with: Patient presents with: Acute Visit HISTORY OF PRESENT ILLNESS: Candelaria Grant is a 38 year old female. Patient presents with: Acute Visit Rash that itches around eyes and eye brows. Tongue hurts- can't tolerate Nystatin since October Vaginal discharge- cottage cheese appearing. Did itch. Started in Dec. Some chills. Sore throat. 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 Jimenez REPAIR OF NASAL SEPTUM SALPINGECTOMY Bilateral 07/04/2023 Laparoscopic B/L Salpingectomy at [facility]-Dr. Condon ALLERGIES Macadamia Nut Oil and Meloxicam MEDICATIONS Current Outpatient Medications Medication Sig Phentermine HCl 37.5 mg capsule Take 1 capsule by mouth once daily for 90 days. BMI 30.57 metFORMIN ER (GLUCOPHAGE XR) 500 mg 24 hr tablet Take 1 tablet by mouth two times a day. tirzepatide (MOUNJARO) 15 mg/0.5 mL pen injector Inject 15 mg subcutaneously one time a week. colestipol (COLESTID) 1 gram tablet Take 1 tablet by mouth once daily. For Diarrhea Post Gall Bladder Removal levonorgestrel (KYLEENA) 17.5 mcg/24 hrs (5 yrs) 19.5 mg IUD 1 Each by INTRAUTERINE route one time only. EPINEPHrine (EPIPEN) 0.3 mg/0.3 mL auto-injector Use for allergic reaction norethindrone (AYGESTIN) 5 mg tablet Take 1 tablet TID until bleeding stops, the BID x 3 days, the daily x [address] (PROTONIX) 40 mg tablet Take 1 tablet by mouth daily before breakfast. Take on empty stomach, 1/2 hr before meal. (Patient not taking: Reported on 01/12/2024) flash glucose sensor (FREESTYLE EMILIA 14 DAY SENSOR) kit Apply and use as directed. Dx: Uncontrolled type 2 diabetes without insulin. flash glucose scanning reader (FREESTYLE EMILIA 3 READER) 1 Each once daily. Phenyleph-Shark Gqq-Kbvj-Xqu (HEMORRHOIDAL) 0.25-3-12 % crea by RECTAL route twice daily. Lancets lancets Test blood sugar(s)2 times daily. Dx: uncontrolled type 2 DM insulin needles, DISPOSABLE, (BD INSULIN PEN NEEDLE UF) 31 gauge x 5/16" use once daily as directed blood sugar diagnostic (BLOOD GLUCOSE TEST) test strip Test blood sugar(s) 2 times daily. Dx: uncontrolled type 2 DM No current facility-administered medications for this visit. FAMILY HISTORY Problem Relation Age of Onset No Known Problems Mother Cancer Father pancreatic and renal. Anesthesia Problems Father slow emergence, PONV No Known Problems Brother No Known Problems Son Breast Cancer Maternal Aunt Cervical Cancer Paternal Aunt x2- and one cousin No Known Problems Maternal Grandmother Diabetes Maternal Grandfather Diabetes Paternal Grandfather other (lymphomia) Other maternal cousin other (leukemia) Other cousin Social History Tobacco Use Smoking status: Never Smokeless tobacco: Never Vaping Use Vaping status: Never Used Substance Use Topics Alcohol use: Yes Comment: Rarely Drug use: No EXAM: BP 138/86 Pulse 70 Resp 16 Wt 85.7 kg (188 lb 15 oz) LMP 10/11/2023 (Approximate) SpO2 98% BMI 27.90 kg/m PHYSICAL EXAM: Physical Exam Vitals reviewed. Constitutional: Appearance: Normal appearance. HENT: Head: Normocephalic. Right Ear: Ear canal and external ear normal. There is no impacted cerumen. Left Ear: Ear canal and external ear normal. There is no impacted cerumen. Ears: Comments: Both TM note clear effusions Nose: Congestion and rhinorrhea present. Comments: Smooth and pink, boggy Mouth/Throat: Mouth: Mucous membranes are moist. Pharynx: Oropharynx is clear. No oropharyngeal exudate or posterior oropharyngeal erythema. Comments: White plaques on tongue Cardiovascular: Rate and Rhythm: Normal rate and regular rhythm. Pulses: Normal pulses. Heart sounds: Normal heart sounds. Pulmonary: Effort: Pulmonary effort is normal. Breath sounds: Normal breath sounds. Genitourinary: Vagina: Vaginal discharge present. Comments: White vaginal drainage Musculoskeletal: General: Normal range of motion. Cervical back: Normal range of motion and neck supple. Lymphadenopathy: Cervical: No cervical adenopathy. Skin: General: Skin is warm and dry. Neurological: Mental Status: She is alert and oriented to person, place, and time. LABS: check labs ASSESSMENT/PLAN: 1. Oral marcelo - ICD9: 112.0, ICD10: B37.0 (primary diagnosis) Acute infection- could not tolrate switsh and swallow - FLUCONAZOLE 100 MG TABLET - COMPLETE BLOOD COUNT AND DIFFERENTIAL - COMPREHENSIVE METABOLIC PANEL - VITAMIN B12 - MAGNESIUM - HEMOGLOBIN A1C - URINALYSIS, REFLEX MICROSCOPIC 2. Vaginal yeast infection - ICD9: 112.1, ICD10: B37.31 Ongoing - FLUCONAZOLE 100 MG TABLET - COMPLETE BLOOD COUNT AND DIFFERENTIAL - COMPREHENSIVE METABOLIC PANEL - VITAMIN B12 - MAGNESIUM - HEMOGLOBIN A1C - URINALYSIS, REFLEX MICROSCOPIC 3. Seborrheic dermatitis - ICD9: 690.10, ICD10: L21.9 Use ketoconazole wash daily - KETOCONAZOLE 2 % SHAMPOO - COMPLETE BLOOD COUNT AND DIFFERENTIAL - COMPREHENSIVE METABOLIC PANEL - VITAMIN B12 - MAGNESIUM - HEMOGLOBIN A1C - URINALYSIS, REFLEX MICROSCOPIC 4. Seasonal allergic rhinitis, unspecified trigger - ICD9: 477.9, ICD10: J30.2 Sample of Xyzal given Discussed treatment plan and patient voices understanding. Patient's questions answered appropriately. Medications and potential side effects were discussed and patient voices understanding. Return to the office as scheduled or as needed for worsening/no improvement. Karley Jimenez APRN.CNP documented in this encounter [facility] 12-31-2023 Telephone encounter Note The following approved medication requests have been transmitted electronically. Requested Prescriptions Signed Prescriptions Disp Refills fluconazole (DIFLUCAN) 100 mg tablet 5 tablet 0 Sig: Take 1 tablet by mouth once daily for 5 days. Ilana Herrera APRN.CNP [facility] 12-31-2023 Miscellaneous Notes The following approved medication requests have been transmitted electronically. Requested Prescriptions Signed Prescriptions Disp Refills fluconazole (DIFLUCAN) 100 mg tablet 5 tablet 0 Sig: Take 1 tablet by mouth once daily for 5 days. Ilana Herrera APRN.CNP Please see pt message Helene Bishop MA documented in this encounter [facility] 12-30-2023 Telephone encounter Note Please see pt message Helene Bishop MA [facility] 12-26-2023 Telephone encounter Note Patient notified and voiced her understanding. [facility] 12-26-2023 Miscellaneous Notes Patient notified and voiced her understanding. Left VM instructing patient to return call for results. Keke Ramirez MA Oral culture was positive for yeast. The diflucan prescribed at her visit should help with this. Oral yeast medicine prescribed as discussed at her visit. documented in this encounter [facility] 12-26-2023 Telephone encounter Note Left VM instructing patient to return call for results. Keke Ramirez MA [facility] 12-26-2023 Telephone encounter Note Oral culture was positive for yeast. The diflucan prescribed at her visit should help with this. Oral yeast medicine prescribed as discussed at her visit. [facility] 12-24-2023 History of Presen t illness Narrative Subjective With complaints of vaginal itching for 2 days. Patient says she does get yeast infections says it feels the same. Patient is not concerned for STDs. Patient does not want to do any testing at this time. Patient says she usually takes 2 Diflucan. Patient is also concerned she has had thrush off and on for 2 months. Says that a family member had it and she is concerned she has it. She has not been on any antibiotics her diabetes is well-controlled she does not take any steroid inhalers. Patient says she does have some white areas and pain on and off and there. The history is provided by the patient. No english language learner teacher was used. Vaginal Problem Review of Systems Constitutional: Negative. Genitourinary: Positive for vaginal discharge. Skin: Negative. Objective Physical Exam Constitutional: Appearance: Normal appearance. HENT: Mouth/Throat: Comments: No Abnormal findings but a swab was sent out. Pulmonary: Effort: Pulmonary effort is normal. Neurological: Mental Status: She is alert. PAST MEDICAL HISTORY Diagnosis Date Abnormal Pap smear of cervix ascus cannot rule out high grade Diabetes mellitus type 2 in obese Migraine headache Obesity PAST SURGICAL HISTORY Procedure Laterality Date SECTION HX 03/24/2013 CHOLECYSTECTOMY HX INSERTION OF IUD 2017 Mirena IUD removed 10/20/2020 KYLEENA IUD 10/20/2020 LYSIS OF ADHESIONS 07/04/2023 NEXPLANON INSERTION 05/10/2013 OSTECTOMY CALCANEUS SPUR W/WO PLNTAR FASCIAL RLS Left Dr. Jimenez REPAIR OF NASAL SEPTUM SALPINGECTOMY Bilateral 07/04/2023 Laparoscopic B/L Salpingectomy at [facility]-Dr. Condon ALLERGIES Macadamia Nut Oil and Meloxicam MEDICATIONS Phentermine HCl 37.5 mg capsule Take 1 capsule by mouth once daily for 90 days. BMI 30.57 metFORMIN ER (GLUCOPHAGE XR) 500 mg 24 hr tablet Take 1 tablet by mouth two times a day. tirzepatide (MOUNJARO) 15 mg/0.5 mL pen injector Inject 15 mg subcutaneously one time a week. colestipol (COLESTID) 1 gram tablet Take 1 tablet by mouth once daily. For Diarrhea Post Gall Bladder Removal norethindrone (AYGESTIN) 5 mg tablet Take 1 tablet TID until bleeding stops, the BID x 3 days, the daily x [address] (PROTONIX) 40 mg tablet Take 1 tablet by mouth daily before breakfast. Take on empty stomach, 1/2 hr before meal. levonorgestrel (KYLEENA) 17.5 mcg/24 hrs (5 yrs) 19.5 mg IUD 1 Each by INTRAUTERINE route one time only. flash glucose sensor (FREESTYLE EMILIA 14 DAY SENSOR) kit Apply and use as directed. Dx: Uncontrolled type 2 diabetes without insulin. flash glucose scanning reader (FREESTYLE EMILIA 3 READER) 1 Each once daily. EPINEPHrine (EPIPEN) 0.3 mg/0.3 mL auto-injector Use for allergic reaction Lancets lancets Test blood sugar(s)2 times daily. Dx: uncontrolled type 2 DM insulin needles, DISPOSABLE, (BD INSULIN PEN NEEDLE UF) 31 gauge x 5/16" use once daily as directed blood sugar diagnostic (BLOOD GLUCOSE TEST) test strip Test blood sugar(s) 2 times daily. Dx: uncontrolled type 2 DM fluconazole (DIFLUCAN) 150 mg tablet Take 1 tablet by mouth one time only for 1 dose. Repeat in 3 days as needed. famotidine (PEPCID) 40 mg tablet Take 1 tablet by mouth as needed. (Patient not taking: Reported on 12/24/2023) Phenyleph-Shark Vgu-Zwwv-Qdw (HEMORRHOIDAL) 0.25-3-12 % crea by RECTAL route twice daily. FAMILY HISTORY Problem Relation Age of Onset No Known Problems Mother Cancer Father pancreatic and renal. Anesthesia Problems Father slow emergence, PONV No Known Problems Brother No Known Problems Son Breast Cancer Maternal Aunt Cervical Cancer Paternal Aunt x2- and one cousin No Known Problems Maternal Grandmother Diabetes Maternal Grandfather Diabetes Paternal Grandfather other (lymphomia) Other maternal cousin other (leukemia) Other cousin Social History Tobacco Use Smoking status: Never Smokeless tobacco: Never Vaping Use Vaping status: Never Used Substance Use Topics Alcohol use: Yes Comment: Rarely Drug use: No ASSESSMENT/PLAN: 1. Mouth pain - ICD9: 528.9, ICD10: K13.79 (primary diagnosis) - YEAST SCREEN 2. Vaginal itching - ICD9: 698.1, ICD10: N89.8 - FLUCONAZOLE 150 MG TABLET Patient did not want to swab or vaginal exam at this time. If patient's mouth swab comes back positive for yeast please prescribe nystatin solution. Patient was educated about this. Catracho Wan APRN.CNP documented in this encounter [facility] 12-17-2023 Telephone encounter Note Sent pt link to schedule appt Helene Bishop MA [facility] 12-17-2023 Miscellaneous Notes Sent pt link to schedule appt Helene Bishop MA Needs to schedule an appointment to discuss these new concerns. Ilana Herrera APRN.CNP Please see pt MC message. Last office visit 11/21/23 with RS. There anyway, you can order some labs for me. I ve been feeling really weird lately and having a lot of problems with acid reflux and thrush and pain in my fingers and going on my arm that makes just Barely touching it hurt documented in this encounter [facility] 12-17-2023 Telephone encounter Note Needs to schedule an appointment to discuss these new concerns. Ilana Herrera APRN.CNP [facility] 12-17-2023 Telephone encounter Note Please see pt MC message. Last office visit 11/21/23 with RS. There anyway, you can order some labs for me. I ve been feeling really weird lately and having a lot of problems with acid reflux and thrush and pain in my fingers and going on my arm that makes just Barely touching it hurt [facility] 12-12-2023 Telephone encounter Note The following approved medication requests have been transmitted electronically. Requested Prescriptions Signed Prescriptions Disp Refills Phentermine HCl 37.5 mg capsule 30 capsule 0 Sig: Take 1 capsule by mouth once daily for 90 days. BMI 30.57 Authorizing Provider: ILANA HERRERA APRN.CNP PDMP website checked and validated. All prescriptions have been APPROPRIATELY filled. No suspicious activity was identified. 12/12/2023 by Ilana Herrera CNP. [facility] 12-12-2023 Miscellaneous Notes The following approved medication requests have been transmitted electronically. Requested Prescriptions Signed Prescriptions Disp Refills Phentermine HCl 37.5 mg capsule 30 capsule 0 Sig: Take 1 capsule by mouth once daily for 90 days. BMI 30.57 Authorizing Provider: ILANA HERRERA APRN.CNP PDMP website checked and validated. All prescriptions have been APPROPRIATELY filled. No suspicious activity was identified. 12/12/2023 by Ilana Herrera CNP. Prescription Refill Information The patient has been identified by name and date of : Yes Caregiver verified no other encounters exist for this prescription request: Yes Caregiver confirmed with patient/requestor that no other refills are due, in the near future, with this provider at this time: Yes The last office visit in the department: 11/21/23 Does the patient have a future office visit with this provider/department: Yes Requested Prescriptions Pending Prescriptions Disp Refills Phentermine HCl 37.5 mg capsule 30 capsule 0 Sig: Take 1 capsule by mouth once daily for 90 days. BMI 30.57 Goldie Milton LPN December 11, 2023 7:59 AM documented in this encounter [facility] 12-11-2023 Telephone encounter Note Prescription Refill Information The patient has been identified by name and date of : Yes Caregiver verified no other encounters exist for this prescription request: Yes Caregiver confirmed with patient/requestor that no other refills are due, in the near future, with this provider at this time: Yes The last office visit in the department: 11/21/23 Does the patient have a future office visit with this provider/department: Yes Requested Prescriptions Pending Prescriptions Disp Refills Phentermine HCl 37.5 mg capsule 30 capsule 0 Sig: Take 1 capsule by mouth once daily for 90 days. BMI 30.57 Goldie Milton LPN December 11, 2023 7:59 AM [facility] 11-21-2023 History of Presen t illness Narrative Radiology Service Progress Note PATIENT NAME: Candelaria Grant DATE OF SERVICE: November 21, 2023 TIME: 11:37 AM PATIENT IDENTITY VERIFICATION COMPLETED USING TWO (2) IDENTIFIERS: Name and Date of confirmed by patient verbally. FALL SCREENING: Has the patient had 2 falls in the last year or 1 fall with injury or currently using an Ambulatory Assistive Device (Walker, Cane, Wheelchair, Crutches, etc.)? No PATIENT GENDER DATA: Female. status: : No status: NO. PATIENT RELEVANT IMPLANT DATA REVIEWED: Not Applicable PATIENT PRESENTS WITH AN IMPLANTABLE OR ATTACHED MOBILE APPLICATION ARCHITECT: No RADIOLOGY DEPARTMENT: General X-ray: Exam(s) Completed: Upper Extremity X-Ray(s): Humerus, right and Forearm, right PERIPHERAL IV DATA: Not applicable SIGNED BY: RT Erin(R) November 21, 2023 11:37 AM documented in this encounter [facility] 11-21-2023 History of Presen t illness Narrative Chief Complaint Patient presents with: Weight Check Pain (Shoulder Pain): R shoulder radiates down R arm due to recent injury- Brooks fell out of truck and landed on her head and R shoulder, Following up with Ortho, reports painful and hard to move around, shoulder xray completed by zulma goodman and urszula mullins. Ortho ordered MRI of R shoulder. HPI Candelaria Grant is a 38 year old female who presents here today for Above Complaints.. Shinda-Gtisvl-Fbgnqkht-has been off of these for a few weeks because she has been having stomach/appendix issues, but now knows this is not r/t the Mounjaro, but other issues. Would like to get these both restarted. Had an injury to her head and shoulder 6 days ago. Difficult to move her arm, get dressed, do her hair. Has seen [facility] yesterday-they are hoping to get her an MRI scheduled. Past medical history, appointments, medications, allergies reviewed. Previous Medical History PAST MEDICAL HISTORY No date: Abnormal Pap smear of cervix Comment: ascus cannot rule out high grade No date: Diabetes mellitus type 2 in obese No date: Migraine headache No date: Obesity Previous Surgical History PAST SURGICAL HISTORY 03/24/2013: SECTION HX No date: CHOLECYSTECTOMY HX 2017: INSERTION OF IUD Comment: Mirena IUD removed 10/20/2020 10/20/2020: KYLEENA IUD 07/04/2023: LYSIS OF ADHESIONS 05/10/2013: NEXPLANON INSERTION No date: OSTECTOMY CALCANEUS SPUR W/WO PLNTAR FASCIAL RLS; Left Comment: Dr. Jimenez No date: REPAIR OF NASAL SEPTUM 07/04/2023: SALPINGECTOMY; Bilateral Comment: Laparoscopic B/L Salpingectomy at [facility]-Dr. Condon Family History FAMILY HISTORY Problem Relation Age of Onset No Known Problems Mother Cancer Father pancreatic and renal. Anesthesia Problems Father slow emergence, PONV No Known Problems Brother No Known Problems Son Breast Cancer Maternal Aunt Cervical Cancer Paternal Aunt x2- and one cousin No Known Problems Maternal Grandmother Diabetes Maternal Grandfather Diabetes Paternal Grandfather other (lymphomia) Other maternal cousin other (leukemia) Other cousin Patient Allergies ALLERGIES Allergen Reactions Macadamia Nut Oil Hives, Swelling, Shortness of Breath Meloxicam Intolerance Headache Current Medications Current Outpatient Medications on File Prior to Visit Medication Sig Phentermine HCl 37.5 mg capsule Take 1 capsule by mouth once daily for 90 days. BMI 30.57 colestipol (COLESTID) 1 gram tablet Take 1 tablet by mouth once daily. For Diarrhea Post Gall Bladder Removal naproxen (NAPROSYN) 500 mg tablet Take 1 tablet by mouth two times a day as needed (for pain/inflammation). Take with food. norethindrone (AYGESTIN) 5 mg tablet Take 1 tablet TID until bleeding stops, the BID x 3 days, the daily x [address] (PROTONIX) 40 mg tablet Take 1 tablet by mouth daily before breakfast. Take on empty stomach, 1/2 hr before meal. tirzepatide (MOUNJARO) 10 mg/0.5 mL pen injector Inject 10 mg subcutaneously one time a week. metFORMIN ER (GLUCOPHAGE XR) 500 mg 24 hr tablet Take 1 tablet by mouth two times a day. levonorgestrel (KYLEENA) 17.5 mcg/24 hrs (5 yrs) 19.5 mg IUD 1 Each by INTRAUTERINE route one time only. flash glucose sensor (FREESTYLE EMILIA 14 DAY SENSOR) kit Apply and use as directed. Dx: Uncontrolled type 2 diabetes without insulin. flash glucose scanning reader (FREESTYLE EMILIA 3 READER) 1 Each once daily. EPINEPHrine (EPIPEN) 0.3 mg/0.3 mL auto-injector Use for allergic reaction Lancets lancets Test blood sugar(s)2 times daily. Dx: uncontrolled type 2 DM insulin needles, DISPOSABLE, (BD INSULIN PEN NEEDLE UF) 31 gauge x 5/16" use once daily as directed blood sugar diagnostic (BLOOD GLUCOSE TEST) test strip Test blood sugar(s) 2 times daily. Dx: uncontrolled type 2 DM famotidine (PEPCID) 40 mg tablet Take 1 tablet by mouth as needed. (Patient not taking: Reported on 11/21/2023) Phenyleph-Shark Gcs-Tlec-Jzz (HEMORRHOIDAL) 0.25-3-12 % crea by RECTAL route twice daily. No current facility-administered medications on file prior to visit. Social History Social History Tobacco Use Smoking status: Never Smokeless tobacco: Never Vaping Use Vaping status: Never Used Substance Use Topics Alcohol use: Yes Comment: Rarely Drug use: No Review of Symptoms REVIEW OF SYSTEMS See HPI, otherwise negative EXAM: BP 138/86 (BP Site: Left Arm, BP Position: Sitting, BP Cuff Size: Regular Adult) Pulse 84 Resp 16 Wt 88.6 kg (195 lb 6.4 oz) LMP 10/11/2023 (Approximate) SpO2 100% BMI 28.86 kg/m General Appearance: Well appearing, alert, in no acute distress, well-hydrated, well nourished.. Lungs: Lungs clear to auscultation. No wheezing, rhonchi, rales.. Heart: RRR without murmur, gallop, or rubs. No ectopy. Extremities: No deformities, edema, skin discoloration, clubbing or cyanosis. Good capillary refill. . Musculoskeletal: decreased ROM to right shoulder, upper and lower arms, wrist. 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 Peripheral Pulses: Normal. Neurologic: Gait normal. Reflexes normal and symmetric. Sensation grossly intact.. Psychiatric: pleasant, cooperative. Health Maintenance List Depression Screening Never done Anxiety Screening Never done DTaP,Tdap,Td Vaccine(1 - Tdap) Never done Dilated Retinal Exam due on 03/17/2022 Covid-19 Vaccine(1 - 2022- season) Never done Urine Albumin:Creatinine Ratio due on 10/23/2023 Influenza Vaccine(1) due on 11/16/2023 Pneumococcal Vaccine(2 of 2 - PCV) due on 01/10/2024 HbA1C due on 04/23/2024 Diabetic Foot Exam due on 04/25/2024 LDL Cholesterol due on 06/01/2024 Annual PCP Team Chronic Disease Visit due on 11/20/2024 Cervical Cancer Screening due on 04/02/2027 Hepatitis C Screening Completed HIV Screening Completed HPV Vaccine Aged Out Data reviewed Previous records, office notes, PDMP report PDMP website checked and validated. All prescriptions have been APPROPRIATELY filled. No suspicious activity was identified. 11/21/2023 by Ilana Herrera CNP. ASSESSMENT/PLAN: 1. Controlled type 2 diabetes mellitus without complication, without long-term current use of insulin (HCC) - ICD9: 250.00, ICD10: E11.9 (primary diagnosis) Restart phentermine and Mounjaro. - PHENTERMINE 37.5 MG CAPSULE 2. Class 1 obesity due to excess calories with serious comorbidity and body mass index (BMI) of 31.0 to 31.9 in adult - ICD9: 278.00, V85.31, ICD10: E66.09, Z68.31 Restart phentermine and Mounjaro. - PHENTERMINE 37.5 MG CAPSULE 3. Injury of right shoulder, initial encounter - ICD9: 959.2, ICD10: S49.91XA Continue to follow with [facility]. - XR HUMERUS 2V AP/LAT RIGHT - XR FOREARM GENERAL 2V AP/LAT RIGHT - XR WRIST GENERAL 3V PA/LAT/OBL RIGHT - HYDROCODONE 7.5 MG-ACETAMINOPHEN 325 MG TABLET 4. Injury of right upper extremity, initial encounter - ICD9: 959.8, ICD10: S49.91XA Continue to follow with [facility]. - XR HUMERUS 2V AP/LAT RIGHT - XR FOREARM GENERAL 2V AP/LAT RIGHT - XR WRIST GENERAL 3V PA/LAT/OBL RIGHT - HYDROCODONE 7.5 MG-ACETAMINOPHEN 325 MG TABLET 5. Weakness of right arm - ICD9: 729.89, ICD10: R29.898 Continue to follow with [facility]. - XR HUMERUS 2V AP/LAT RIGHT - XR FOREARM GENERAL 2V AP/LAT RIGHT - XR WRIST GENERAL 3V PA/LAT/OBL RIGHT - HYDROCODONE 7.5 MG-ACETAMINOPHEN 325 MG TABLET Ilana Herrera APRN.GUM COOK documented in this encounter [facility] 11-16-2023 Hospital Discharg e instructions Patient Education 11/16/2023 17:58:01 RICE RICE Rest an injury, elevate it, and use ice and compression as directed. RICE stands for rest, ice, compression, and elevation. These can limit pain and swelling after an injury. RICE may be recommended to help treat breaks (fractures), sprains, strains, and bruises or bumps. Home care Here are the details of RICE: Rest. Limit the use of the injured body part. This helps prevent further damage to the body part and gives it time to heal. In some cases, you may need a sling, brace, splint, or cast to help keep the body part still until it has healed. Ice. Applying ice right after an injury helps relieve pain and swelling. To make an ice pack, put ice cubes in a plastic bag that seals at the top. Wrap the bag in a clean, thin towel or cloth. Then place it over the injured area. Do this for 10 to 15 minutes every 3 to 4 hours. Continue for the next 1 to 3 days or until your symptoms improve. Never put ice directly on your skin. Don't ice an area longer than 15 minutes at a time. Compression. Putting pressure on an injury helps reduce swelling and provides support. Wrap the injured area firmly with an elastic bandage or wrap. Make sure not to wrap the bandage too tightly or you will cut off blood flow to the injured area. If your bandage loosens, rewrap it. Elevation. Keeping an injury raised or elevated above the level of your heart reduces swelling, pain, and throbbing. For instance, if you have a broken leg, it may help to rest your leg on several pillows when sitting or lying down. Try to keep the injured area elevated as often as possible. Follow-up care Follow up with your healthcare provider, or as advised. When to seek medical advice Call your healthcare provider right away if any of these occur: Fever of 100.4 F (38 C) or higher, or as directed by your healthcare provider Chills Increased pain or swelling in the injured body part Injured body part becomes cold, blue, numb, or tingly Signs of infection. These include warmth in the skin, redness, drainage, or bad smell coming from the injured body part. [id number] [employer] [place] [address]. All rights reserved. This information is not intended as a substitute for professional medical care. Always follow your healthcare professional's instructions. 11/16/2023 17:57:36 Muscle Strain, Extremity Muscle Strain in the Extremities A muscle strain is a stretching and tearing of muscle fibers. This causes pain, especially when you move that muscle. There may also be some swelling and bruising. Home care Keep the hurt area raised above heart level to reduce pain and swelling. This is especially important during the first 48 hours. Apply an ice pack over the injured area for 15 to 20 minutes every 3 to 6 hours. You should do this for the first 24 to 48 hours. You can make an ice pack by filling a plastic bag that seals at the top with ice cubes and then wrapping it with a thin towel. Be careful not to injure your skin with the ice treatments. Ice should never be applied directly to skin. Continue the use of ice packs for relief of pain and swelling as needed. After 48 hours, apply heat (warm shower or warm bath) for 15 to 20 minutes several times a day, or alternate ice and heat. You may use mdad-nrh-axtkbcq pain medicine to control pain, unless another medicine was prescribed. If you have chronic liver or kidney disease or ever had a stomach ulcer or gastrointestinal bleeding, talk with your healthcare provider before using these medicines. For leg strains: If crutches have been recommended, don t put full weight on the hurt leg until you can do so without pain. You can return to sports when you are able to hop and run on the injured leg without pain. Follow-up care Follow up with your healthcare provider, or as advised. When to seek medical advice Call your healthcare provider right away if any of these occur: The toes of the injured leg become swollen, cold, blue, numb, or tingly Pain or swelling increases [id number] [employer] [place] [address]. All rights reserved. This information is not intended as a substitute for professional medical care. Always follow your healthcare professional's instructions. 11/16/2023 17:57:31 Head Injury (Adult) Head Injury (Adult) You have a head injury. It does not appear serious at this time. But symptoms of a more serious problem, such as a mild brain injury (concussion) or bruising or bleeding in the brain, may appear later. For this reason, you or someone caring for you will need to watch for the symptoms listed below. Once you re home, also be sure to follow any care instructions you re given. Home care Watch for the following symptoms Seek emergency medical care if you have any of these symptoms over the next hours to days: Headache Nausea or vomiting Dizziness Sensitivity to light or noise Unusual sleepiness or grogginess Trouble falling asleep Personality changes Vision changes Memory loss Confusion Trouble walking or clumsiness Loss of consciousness (even for a short time) Inability to be awakened Stiff neck Weakness or numbness in any part of the body Seizures General care If you were prescribed medicines for pain, use them as directed. Note: Don t take other medicines for pain without talking to your provider first. To help reduce swelling and pain, apply a cold source to the injured area for up to 20 minutes at a time. Do this as often as directed. Use a cold pack or bag of ice wrapped in a thin towel. Never apply a cold source directly to the skin. If you have cuts or scrapes as a result of your head injury, care for them as directed. For the next 24 hours (or longer, if instructed): oDon t drink alcohol or use sedatives or other medicines that make you sleepy. oDon t drive or operate machinery. oDon t do anything strenuous, such as heavy lifting or straining. oLimit tasks that require concentration. This includes reading, using a smartphone or computer, watching TV, and playing video games. oDon t return to sports or other activities that could result in another head injury. Follow-up care Follow up with your healthcare provider, or as directed. If imaging tests were done, they will be reviewed by a doctor. You will be told the results and any new findings that may affect your care. When to seek medical advice Call your healthcare provider right away if any of these occur: Pain doesn t get better or worsens New or increased swelling or bruising Fever of 100.4 F (38 C) or higher, or as directed by your provider Increased redness, warmth, drainage, or bleeding from the injured area Fluid drainage or bleeding from the nose or ears Any depression or bony abnormality in the injured area Persistent confusion or lethargy Bruising behind the ears or bruising around the eyes [phone] The [employer]. [address] [place] [address], [place] [address]. All rights reserved. This information is not intended as a substitute for professional medical care. Always follow your healthcare professional's instructions. Follow Up Care 11/16/2023 16:11:06 With:NATALEE AZEVEDO DO, Orthopedic Address: [facility] [address] [place] [phone] When:2-4 days With:GIGI CARRILLO DO Address: [facility] [place] [address]- When:2-4 days [facility] Mullins 11-16-2023 Emergency department Discharge summary Discharge Instructions Thank you for allowing [facility] to assist you with your healthcare needs. The following is important discharge information regarding your hospital visit. Diagnosis from Today's Visit Head injury Left shoulder strain What to Do Next Instructions from Your Care Team Please follow-up with [facility], referral provided. Take Tylenol and/or Motrin as needed for pain. No qualifying data available. Post Acute Orders No qualifying data available. You Need to Schedule the Following Appointments Follow Up with NATALEE AZEVEDO DO, Orthopedic When:Within 2-4 days Where:[address] [facility] [place] [phone] Follow Up with GIGI CARRILLO DO When:Within 2-4 days Where:[address] [place], [place] [phone] Allergies macadamia nut throat swelling, hives Medications Please ask your primary doctor or pharmacist before taking any other medication not listed, including over the counter drugs, herbal medications, vitamins and or supplements as they may interact with your home medications. What How Much When Why Instructions Last Dose Unchanged colestipol (colestipol 1 g oral tablet) 1 tab(s) by mouth Once a day Unchanged dicyclomine (dicyclomine 10 mg oral capsule) 1 cap by mouth Four (4) times a day Nausea Diarrhea Duration: 7 Days Unchanged liraglutide (Victoza 18 mg/ 3 mL subcutaneous Pen (NF)) 1.8 Milligram Subcutaneous Once a day Unchanged metFORMIN (metFORMIN 500 mg oral tablet) 1 tab(s) by mouth Two (2) times a day Please take this list to your next doctor s visit. Bring all medications you take, including over the counter medications, herbals and other supplements with you to your doctor s visit. Patients and families are reminded to discard old lists and to update any records with all medication providers or retail pharmacies. Education Materials RICE Rest an injury, elevate it, and use ice and compression as directed. RICE stands for rest, ice, compression, and elevation. These can limit pain and swelling after an injury. RICE may be recommended to help treat breaks (fractures), sprains, strains, and bruises or bumps. Home care Here are the details of RICE: Rest. Limit the use of the injured body part. This helps prevent further damage to the body part and gives it time to heal. In some cases, you may need a sling, brace, splint, or cast to help keep the body part still until it has healed. Ice. Applying ice right after an injury helps relieve pain and swelling. To make an ice pack, put ice cubes in a plastic bag that seals at the top. Wrap the bag in a clean, thin towel or cloth. Then place it over the injured area. Do this for 10 to 15 minutes every 3 to 4 hours. Continue for the next 1 to 3 days or until your symptoms improve. Never put ice directly on your skin. Don't ice an area longer than 15 minutes at a time. Compression. Putting pressure on an injury helps reduce swelling and provides support. Wrap the injured area firmly with an elastic bandage or wrap. Make sure not to wrap the bandage too tightly or you will cut off blood flow to the injured area. If your bandage loosens, rewrap it. Elevation. Keeping an injury raised or elevated above the level of your heart reduces swelling, pain, and throbbing. For instance, if you have a broken leg, it may help to rest your leg on several pillows when sitting or lying down. Try to keep the injured area elevated as often as possible. Follow-up care Follow up with your healthcare provider, or as advised. When to seek medical advice Call your healthcare provider right away if any of these occur: Fever of 100.4 F (38 C) or higher, or as directed by your healthcare provider Chills Increased pain or swelling in the injured body part Injured body part becomes cold, blue, numb, or tingly Signs of infection. These include warmth in the skin, redness, drainage, or bad smell coming from the injured body part. [phone] The [employer]. [address] [place] [address], [place] [address]. All rights reserved. This information is not intended as a substitute for professional medical care. Always follow your healthcare professional's instructions. Muscle Strain in the Extremities A muscle strain is a stretching and tearing of muscle fibers. This causes pain, especially when you move that muscle. There may also be some swelling and bruising. Home care Keep the hurt area raised above heart level to reduce pain and swelling. This is especially important during the first 48 hours. Apply an ice pack over the injured area for 15 to 20 minutes every 3 to 6 hours. You should do this for the first 24 to 48 hours. You can make an ice pack by filling a plastic bag that seals at the top with ice cubes and then wrapping it with a thin towel. Be careful not to injure your skin with the ice treatments. Ice should never be applied directly to skin. Continue the use of ice packs for relief of pain and swelling as needed. After 48 hours, apply heat (warm shower or warm bath) for 15 to 20 minutes several times a day, or alternate ice and heat. You may use xuwq-sxa-zatpfdo pain medicine to control pain, unless another medicine was prescribed. If you have chronic liver or kidney disease or ever had a stomach ulcer or gastrointestinal bleeding, talk with your healthcare provider before using these medicines. For leg strains: If crutches have been recommended, don t put full weight on the hurt leg until you can do so without pain. You can return to sports when you are able to hop and run on the injured leg without pain. Follow-up care Follow up with your healthcare provider, or as advised. When to seek medical advice Call your healthcare provider right away if any of these occur: The toes of the injured leg become swollen, cold, blue, numb, or tingly Pain or swelling increases [phone] The [employer]. [address] [place] [address]. All rights reserved. This information is not intended as a substitute for professional medical care. Always follow your healthcare professional's instructions. Head Injury (Adult) You have a head injury. It does not appear serious at this time. But symptoms of a more serious problem, such as a mild brain injury (concussion) or bruising or bleeding in the brain, may appear later. For this reason, you or someone caring for you will need to watch for the symptoms listed below. Once you re home, also be sure to follow any care instructions you re given. Home care Watch for the following symptoms Seek emergency medical care if you have any of these symptoms over the next hours to days: Headache Nausea or vomiting Dizziness Sensitivity to light or noise Unusual sleepiness or grogginess Trouble falling asleep Personality changes Vision changes Memory loss Confusion Trouble walking or clumsiness Loss of consciousness (even for a short time) Inability to be awakened Stiff neck Weakness or numbness in any part of the body Seizures General care If you were prescribed medicines for pain, use them as directed. Note: Don t take other medicines for pain without talking to your provider first. To help reduce swelling and pain, apply a cold source to the injured area for up to 20 minutes at a time. Do this as often as directed. Use a cold pack or bag of ice wrapped in a thin towel. Never apply a cold source directly to the skin. If you have cuts or scrapes as a result of your head injury, care for them as directed. For the next 24 hours (or longer, if instructed): oDon t drink alcohol or use sedatives or other medicines that make you sleepy. oDon t drive or operate machinery. oDon t do anything strenuous, such as heavy lifting or straining. oLimit tasks that require concentration. This includes reading, using a smartphone or computer, watching TV, and playing video games. oDon t return to sports or other activities that could result in another head injury. Follow-up care Follow up with your healthcare provider, or as directed. If imaging tests were done, they will be reviewed by a doctor. You will be told the results and any new findings that may affect your care. When to seek medical advice Call your healthcare provider right away if any of these occur: Pain doesn t get better or worsens New or increased swelling or bruising Fever of 100.4 F (38 C) or higher, or as directed by your provider Increased redness, warmth, drainage, or bleeding from the injured area Fluid drainage or bleeding from the nose or ears Any depression or bony abnormality in the injured area Persistent confusion or lethargy Bruising behind the ears or bruising around the eyes [id number] [facility], [place] [address]. All rights reserved. This information is not intended as a substitute for professional medical care. Always follow your healthcare professional's instructions. Additional Information VACCINATE! IT SAVES LIVES! Members of the community who have not yet received the COVID-19 vaccine and would like to receive it can visit one of [facility] vaccine clinics. There are many vaccine clinic locations within the State. For locations and available times, please visit www.gettheshot.coronavirus.[place]. gov/. It is important to note that some COVID mobile vaccine clinics are held outdoors and may be canceled in rainy or stormy conditions. To learn more about pediatric vaccinations (ages 5-11), we invite you to visit the [facility] webpage. https://www.[email or web address].org/p ages/4825-Bhpqk-Pucczannhxg-Freq yefrme-Dvlru-Rrkufvesz.html To learn more about the COVID-19 vaccine, we invite you to visit the CDC website for a list of frequently asked questions. https://www.cdc.gov/coronavirus/ 2019-ncov/vaccines/faq.html [facility] Patient Portal Access Instructions: Stay connected with your healthcare team and access your personal medical information anytime with the [facility] Patient Portal. If you would like a full copy of your medical records please contact the [facility] Medical Records Department Friday through Friday between 8a.m. and 4:30p.m. Please follow the directions below to access the portal: 1.Access the email account you provided upon registration to the hospital.2.Look for an invitation email from [facility].3.Open the email and access the invitation link: Accept Invitation to [facility]4.Fill in the required culver to create your account. Sign into [email or web address] with your username and password that you created in the above steps to stay up to date. You can then view a summary of results, a summary of your visits, and the ability to download your summaries to your computer or send the information securely to a physician. Remember that your healthcare information is confidential, so carefully consider who you will allow to register on the [facility] Patient Portal for access to your information. You can also access the [facility] Patient Portal on the [employer]. Simply click on "Health Records" under "Health Data" and then click on the [facility] logo. HOW TO SAFELY DISPOSE OF PRESCRIPTION MEDICATIONS Please use one of the following methods to safely dispose of your unused medications. 1.Use a drug disposal kit: the drug disposal pouch allows you to safely discard your old and unused drugs. Ask your nurse to give you one when you are discharged.2.Visit a local take-back location: Many local pharmacies and police departments have programs that collect old and unwanted prescription drugs. Call your local pharmacy or go to http://[employer]/2C8Ag9m to find one close to you.3.Make use of household items: Use cat litter or old coffee grounds to dispose medications if other options are not available. Mix your drugs with these household products, seal them in an airtight container and throw it into the garbage. Call [facility]: [phone] to be sure your drugs can be disposed of in this way. Some medicines may require a different approach.4.Never flush your medications down the toilet. IF YOU HAVE BEEN PRESCRIBED AN OPIOIDS FOR PAIN If you have been prescribed an opioid (such as hydrocodone, oxycodone or morphine), it is critical to understand the possible side effects and risks of opioid pain medications. Even when taken as directed, opioids can have several side effects including: Tolerance, meaning you might need to take more of a medication for the same pain relief. Nausea, vomiting and/or constipation. Sleepiness, dizziness, dry mouth, confusion, depression or itching. Physical dependence, meaning you have withdrawal symptoms when a medication is stopped ? this can develop within a few days. KNOW YOUR RESPONSIBILITIES It is important to know exactly how much and how often to take the opioid pain medications you are prescribed. Never take opioids in higher amounts or more often than prescribed. Do not combine opioids with alcohol or other drugs that cause drowsiness, such as benzodiazepines, also known as benzos, including diazepam and alprazolam, muscle relaxants or sleep aids. Never sell or share prescription opioids. This is illegal. Store opioids in a secure place and out of reach of others (including children, family, friends and visitors). The last page(s) of this document has been signed and retained as a CHART COPY Signatures Patient Education Materials RICE Muscle Strain, Extremity Head Injury (Adult) Medication Leaflets My discharge plan and instructions have been reviewed and explained to me and I,CANDELARIA GRANT understand my current condition and have read and understand these discharge instructions. I have received a written copy of the plan/instructions. If I have questions, I am aware that I should contact my doctor. Patient/School Based Therapist Signature: Date/Time: Relationship to Patient: Witness Name/Signature: Date/Time: [facility] 11-16-2023 Note ORIGINAL EXAMINATION: TWO XRAY VIEWS OF THE RIGHT SHOULDER 11/16/2023 5:32 pm COMPARISON: None. HISTORY: ORDERING SYSTEM PROVIDED HISTORY: Reason for Exam: trauma FINDINGS: No fracture or dislocation. IMPRESSION: No fracture or dislocation. Interpreted by: Peter Szymanski Preliminary Report By: Peter Szymanski Electronically signed By Peter Szymanski Dictated Date: 11/16/2023 5:40:13 PM Prelim Date: 11/16/2023 5:40:46 PM Sign Date: 11/16/2023 5:40:46 PM Ordering Provider: DONALDO VILLAGOMEZ [facility] 11-16-2023 Note ORIGINAL EXAMINATION: CT OF THE HEAD WITHOUT CONTRAST 11/16/2023 5:32 pm TECHNIQUE: CT of the head was performed without the administration of intravenous contrast. Automated exposure control, iterative reconstruction, and/or weight based adjustment of the mA/kV was utilized to reduce the radiation dose to as low as reasonably achievable. COMPARISON: CT head November 24, 2019 HISTORY: ORDERING SYSTEM PROVIDED HISTORY: Reason for Exam: head trauma FINDINGS: BRAIN/VENTRICLES: There is no acute intracranial hemorrhage, mass effect or midline shift. No abnormal extra-axial fluid collection. The montaño-white differentiation is maintained without evidence of an acute infarct. There is no evidence of hydrocephalus. ORBITS: The visualized portion of the orbits demonstrate no acute abnormality. SINUSES: The visualized paranasal sinuses and mastoid air cells demonstrate no acute abnormality. SOFT TISSUES/SKULL: No acute abnormality of the visualized skull. Mild right frontal soft tissue swelling. IMPRESSION: No acute intracranial abnormality. Interpreted by: Peter Szymanski Preliminary Report By: Peter Szymanski Electronically signed By Peter Szymanski Dictated Date: 11/16/2023 5:40:52 PM Prelim Date: 11/16/2023 5:42:37 PM Sign Date: 11/16/2023 5:42:37 PM Ordering Provider: DONALDO VILLAGOMEZ [facility] [place] 11-11-2023 History and physical note Images from the original note were not included. [facility] HISTORY AND PHYSICAL EXAMINATION SERVICE DATE: 11/11/2023 SERVICE TIME: 11:05 AM Patient has been identified by name and date of : Yes Reason for contact: PACC visit Accompanied by: Self This is a virtual visit using [employer] Video Visit. It required patient-provider interaction for the medical decision making as documented below. I have communicated my name and active licensure. The patient's identity and physical location were verified at the time of this visit. Either the patient or their legal office machines sales representative has been informed of the risks and benefits of and alternatives to treatment through a remote evaluation and consents to proceed with the evaluation remotely. PRIMARY CARE PHYSICIAN: Gigi Carrillo DO REASON FOR VISIT: Candelaria Grant is a 38 year old female who is scheduled for LAPAROSCOPIC APPENDECTOMY ADULT at the request of Dr. Rashida Estevez for consultation. My final recommendation will be communicated back to the requesting physician by way of shared medical record or letter. Assessment Diabetes (HCC) Assessment: Managed on oral medication and Mounjaro Advised to stop Mounjaro for 7 days prior to surgery Lab Results Component Value Date HBA1C 5.6 10/22/2023 HBA1C 5.5 10/03/2023 HBA1C 6.4 06/02/2023 HBA1C 5.9 03/07/2023 Weight loss due to medication Assessment: On Phentermine for weight loss- advised to hold 7 days prior to surgery Body mass index is 27.47 kg/m . Ji Activity Status Index: METS: Walk indoors, such as around the house (1.75 METs) Do light work around the house, such as dusting or washing dishes (2.70 METs) Take care of self; that is eating, dressing, bathing, using the toilet (2.75 METs) Walk a block or two on level ground (2.75 METs) Do moderate work around the house, such as vacuuming, sweeping floors, or carrying in groceries (3.50 METs) Do yardwork, such as raking leaves, weeding, or pushing a power mower (4.50 METs) Climb a flight of stairs or walk up a hill (5.50 METs) Do heavy work around the house, such as scrubbing floors, lifting or moving heavy furniture (8.00 METs) DASI Score: 31.45 Patient denies any chest pain or undue shortness of breath with the above physical activity. Clinical Frailty Scale: 3. Well, with treated comorbid disease STOP-Bang Score: Denies snoring loudly Denies feeling tired, fatigued, or sleepy during the daytime Has not been observed to stop breathing or choking/gasping during sleep Denies having high blood pressure BMI less than or equal to 35 kg/m^2 Patient 50 years old or younger Does not have a large neck Non-male patient STOP-Bang Score: 0 [id number] Score: Age: <65 Sex: female CHF history: No Hypertension history: No Stroke/TIA/thromboembolism history: No Vascular disease history: No Diabetes history: Yes [id number] Score: 2 ANESTHESIA FINDINGS: Intubation History: No history of difficult intubation Significant Anesthesia Considerations: none Airway History: No history of difficult airway I - PHYSICAL EVALUATION AIRWAY Patient intubated: No. Tracheostomy tube not present Mallampati: II. TM distance: >3 FB. Neck ROM: full ROM without neurological symptoms. Mouth opening: adequate. Short neck: no. Thick neck: no DENTAL Dentures, upper: complete. Dentures, lower: complete. II - ANESTHESIA PLAN Anesthetic plan additional comments: *PACC/TCI - anesthesia choice. Beta Mary Carmen Monitoring Plan Post Procedure Analgesic Plan Prepared for surgery: This patient is optimally prepared for surgery. CONSULTS: Patient does not require consults for optimization at this time. The Following Tests/Procedures Have Been Initiated: Labs not indicated per PACC protocol, EKG not indicated per PACC protocol Planned Anesthetic: Per anesthesia choice Subjective CHIEF COMPLAINT: Pre-op visit HPI: 38 year old female with abdominal pain for 2-3 months. Also has nausea and heartburn. Recent CT scan did show a questionable appendicolith. Pain today 08/24 Elected for above surgery REVIEW OF SYSTEMS: PAIN ASSESSMENT: General: No weight loss, malaise or fevers. Neuro: No history of TIA's, stroke, FLAT SURFACER tumor, impaired sensorium, hemiplegia, paraplegia or quadraplegia. No neurological symptoms or problems. + Migraines Respiratory: No history of current cough or dyspnea, or pneumonia in the past 6 weeks. No history of respiratory/pulmonary symptoms or problems. Cardiovascular: No history of HTN requiring medication, no history of angina, CHF, OK, cardiac surgery or stents. Denies rest pain, gangrene or revascularization/amputation for PVD. No history of cardiovascular symptoms or problems. 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 : Denies, Patient's last menstrual period was 10/11/2023 (approximate). Endocrine: + T2DM Hematology: No history of bleeding or clotting disorder. Pt is not taking anti-coagulation or platelet medications. No history of hematological symptoms or problems. Oncology: No history of CA metastasis, chemo within 30 days, or radiotherapy within 90 days. Has not lost 10% of body wt in 6 months. No history of oncological symptoms or problems. Psych: No history of psychiatric symptoms or problems. Musculoskeletal: Negative for joint pain or swelling, back pain or muscle pain. Skin: Negative for lesions, rash and itching. The patient has the following: ACTIVE PROBLEM LIST History of Gestational Diabetes Depressed Mood Family History of Ovarian Cancer Bmi 38.0-38.9,Adult Migraine Headache Functional Diarrhea Uncontrolled Type 2 Diabetes Mellitus Without Complication, Without Long-Term Current Use of Insulin Rectal Bleeding Luq Abdominal Pain Altered Bowel Habits TMJ Dysfunction Diabetes (Hcc) Hyperlipidemia Ldl Goal <100 TMJ Tenderness, Right Abnormal Pap Smear of Cervix Left Knee Pain Weight Loss Due to Medication Covid Immunization Dates Postponed - Covid-19 Vaccine ( season) Postponed until 04/25/2024 04/25/2023 Postponed until 04/25/2024 by Goldie Milton LPN (Declined at this time) 02/13/2022 Postponed until 02/13/2023 by Goldie Milton LPN (Declined at this time) 01/10/2021 Postponed until 01/10/2022 by Ilana Herrera APRN.GUM COOK (Declined at this time) PAST MEDICAL HISTORY No date: Abnormal Pap smear of cervix Comment: ascus cannot rule out high grade No date: Diabetes mellitus type 2 in obese No date: Migraine headache No date: Obesity PAST SURGICAL HISTORY 03/24/2013: SECTION HX No date: CHOLECYSTECTOMY HX 2017: INSERTION OF IUD Comment: Mirena IUD removed 10/20/2020 10/20/2020: KYLEENA IUD 07/04/2023: LYSIS OF ADHESIONS 05/10/2013: NEXPLANON INSERTION No date: OSTECTOMY CALCANEUS SPUR W/WO PLNTAR FASCIAL RLS; Left Comment: Dr. Jimenez No date: REPAIR OF NASAL SEPTUM 07/04/2023: SALPINGECTOMY; Bilateral Comment: Laparoscopic B/L Salpingectomy at [facility]-Dr. Condon FAMILY HISTORY Problem Relation Age of Onset No Known Problems Mother Cancer Father pancreatic and renal. Anesthesia Problems Father slow emergence, PONV No Known Problems Brother No Known Problems Son Breast Cancer Maternal Aunt Cervical Cancer Paternal Aunt x2- and one cousin No Known Problems Maternal Grandmother Diabetes Maternal Grandfather Diabetes Paternal Grandfather other (lymphomia) Other maternal cousin other (leukemia) Other cousin Social History Tobacco Use Smoking status: Never Smokeless tobacco: Never Vaping Use Vaping status: Never Used Substance Use Topics Alcohol use: Yes Comment: Rarely Drug use: No Prior to Admission medications as of 10/29/23 1535 Medication Sig Last Dose Taking Phentermine HCl 37.5 mg capsule Take 1 capsule by mouth once daily for 90 days. BMI 30.57 Yes colestipol (COLESTID) 1 gram tablet Take 1 tablet by mouth once daily. For Diarrhea Post Gall Bladder Removal Yes naproxen (NAPROSYN) 500 mg tablet Take 1 tablet by mouth two times a day as needed (for pain/inflammation). Take with food. Yes tirzepatide (MOUNJARO) 10 mg/0.5 mL pen injector Inject 10 mg subcutaneously one time a week. Yes metFORMIN ER (GLUCOPHAGE XR) 500 mg 24 hr tablet Take 1 tablet by mouth two times a day. Yes levonorgestrel (KYLEENA) 17.5 mcg/24 hrs (5 yrs) 19.5 mg IUD 1 Each by INTRAUTERINE route one time only. Yes EPINEPHrine (EPIPEN) 0.3 mg/0.3 mL auto-injector Use for allergic reaction Yes norethindrone (AYGESTIN) 5 mg tablet Take 1 tablet TID until bleeding stops, the BID x 3 days, the daily x [address] (PROTONIX) 40 mg tablet Take 1 tablet by mouth daily before breakfast. Take on empty stomach, 1/2 hr before meal. famotidine (PEPCID) 40 mg tablet Take 1 tablet by mouth as needed. flash glucose sensor (FREESTYLE EMILIA 14 DAY SENSOR) kit Apply and use as directed. Dx: Uncontrolled type 2 diabetes without insulin. flash glucose scanning reader (FREESTYLE EMILIA 3 READER) 1 Each once daily. Phenyleph-Shark Uxv-Spgz-Ucw (HEMORRHOIDAL) 0.25-3-12 % crea by RECTAL route twice daily. Lancets lancets Test blood sugar(s)2 times daily. Dx: uncontrolled type 2 DM insulin needles, DISPOSABLE, (BD INSULIN PEN NEEDLE UF) 31 gauge x 5/16" use once daily as directed blood sugar diagnostic (BLOOD GLUCOSE TEST) test strip Test blood sugar(s) 2 times daily. Dx: uncontrolled type 2 DM No medication comments found. ALLERGIES Allergen Reactions Macadamia Nut Oil Hives, Swelling, Shortness of Breath Meloxicam Intolerance Headache Objective PHYSICAL EXAM: VITALS: Resp 18 Ht 5' 9" (1.75m) Wt 186 lb (84.4kg) LMP 10/11/2023 BMI 27.45 kg/(m^2). VIDEO EXAM: (if completed, performed via video enabled technology) GENERAL: alert and appropriate, in no distress SKIN: no rash noted EYES: no injection and visual acuity is grossly normal OROPHARYNX: moist mucus membranes NECK: full ROM, no cervical LNs noted RESPIRATORY: breathing non-labored CHEST: equal chest rise with normal respiratory effort HEART: patient unable to palpate pulse, no JVD, edema or cyanosis ABDOMEN: mild TTP noted in the RLQ NEUROLOGIC: no obvious deficit Diagnostic tests reviewed for today's visit: Lab Value Units Date High Low HB 12.7 g/dL 10/22/2023 15.5 11.5 HCT 37.1 % 10/22/2023 46.0 36.0 WBC 9.47 k/uL 10/22/2023 11.00 3.70 PLT 300 k/uL 10/22/2023 400 150 NA 139 mmol/L 10/22/2023 144 136 K 3.7 mmol/L 10/22/2023 5.1 3.7 GLUC 117 mg/dL 10/22/2023 99 74 BUN 7 mg/dL 10/22/2023 21 7 CREAT 0.69 mg/dL 10/22/2023 0.96 0.58 PTSEC No results within date range. INR No results within date range. APTT No results within date range. ALT 22 U/L 10/22/2023 38 7 AST 23 U/L 10/22/2023 35 13 TBILI 0.4 mg/dL 10/22/2023 1.3 0.2 TSH No results within date range. Hemoglobin A1C (%) Date Value 10/22/2023 5.6 06/02/2023 6.4 03/07/2023 5.9 10/22/2022 6.1 02/13/2022 8.4 09/25/2020 10.1 06/22/2019 9.6 11/11/2018 7.2 01/13/2018 7.0 05/26/2017 6.8 Hemoglobin A1C (POCT) (%) Date Value 10/03/2023 5.5 05/16/2022 9.6 11/30/2021 7.6 03/28/2021 10.4 12/03/2019 9.6 EKG 06/2023 scanned NSR, nonspecific ST abnormality Instructions Given to Patient: Instructions located in the after visit summary. Patient given verbal and written preop instructions and voices comprehension and compliance. SIGNATURE: Rama Brown APRN.CNP PATIENT NAME: Candelaria Grant DATE: 11/11/2023 TIME: [facility] 11-11-2023 History and physical note Images from the original note were not included. [facility] HISTORY AND PHYSICAL EXAMINATION SERVICE DATE: 11/11/2023 SERVICE TIME: 11:05 AM Patient has been identified by name and date of : Yes Reason for contact: PACC visit Accompanied by: Self This is a virtual visit using [employer] Video Visit. It required patient-provider interaction for the medical decision making as documented below. I have communicated my name and active licensure. The patient's identity and physical location were verified at the time of this visit. Either the patient or their legal office machines sales representative has been informed of the risks and benefits of and alternatives to treatment through a remote evaluation and consents to proceed with the evaluation remotely. PRIMARY CARE PHYSICIAN: Gigi Carrillo DO REASON FOR VISIT: Candelaria Grant is a 38 year old female who is scheduled for LAPAROSCOPIC APPENDECTOMY ADULT at the request of Dr. Rashida Estevez for consultation. My final recommendation will be communicated back to the requesting physician by way of shared medical record or letter. Assessment Diabetes (HCC) Assessment: Managed on oral medication and Mounjaro Advised to stop Mounjaro for 7 days prior to surgery Lab Results Component Value Date HBA1C 5.6 10/22/2023 HBA1C 5.5 10/03/2023 HBA1C 6.4 06/02/2023 HBA1C 5.9 03/07/2023 Weight loss due to medication Assessment: On Phentermine for weight loss- advised to hold 7 days prior to surgery Body mass index is 27.47 kg/m . Ji Activity Status Index: METS: Walk indoors, such as around the house (1.75 METs) Do light work around the house, such as dusting or washing dishes (2.70 METs) Take care of self; that is eating, dressing, bathing, using the toilet (2.75 METs) Walk a block or two on level ground (2.75 METs) Do moderate work around the house, such as vacuuming, sweeping floors, or carrying in groceries (3.50 METs) Do yardwork, such as raking leaves, weeding, or pushing a power mower (4.50 METs) Climb a flight of stairs or walk up a hill (5.50 METs) Do heavy work around the house, such as scrubbing floors, lifting or moving heavy furniture (8.00 METs) DASI Score: 31.45 Patient denies any chest pain or undue shortness of breath with the above physical activity. Clinical Frailty Scale: 3. Well, with treated comorbid disease STOP-Bang Score: Denies snoring loudly Denies feeling tired, fatigued, or sleepy during the daytime Has not been observed to stop breathing or choking/gasping during sleep Denies having high blood pressure BMI less than or equal to 35 kg/m^2 Patient 50 years old or younger Does not have a large neck Non-male patient STOP-Bang Score: 0 [id number] Score: Age: <65 Sex: female CHF history: No Hypertension history: No Stroke/TIA/thromboembolism history: No Vascular disease history: No Diabetes history: Yes [id number] Score: 2 ANESTHESIA FINDINGS: Intubation History: No history of difficult intubation Significant Anesthesia Considerations: none Airway History: No history of difficult airway I - PHYSICAL EVALUATION AIRWAY Patient intubated: No. Tracheostomy tube not present Mallampati: II. TM distance: >3 FB. Neck ROM: full ROM without neurological symptoms. Mouth opening: adequate. Short neck: no. Thick neck: no DENTAL Dentures, upper: complete. Dentures, lower: complete. II - ANESTHESIA PLAN Anesthetic plan additional comments: *PACC/TCI - anesthesia choice. Beta Mary Carmen Monitoring Plan Post Procedure Analgesic Plan Prepared for surgery: This patient is optimally prepared for surgery. CONSULTS: Patient does not require consults for optimization at this time. The Following Tests/Procedures Have Been Initiated: Labs not indicated per PACC protocol, EKG not indicated per PACC protocol Planned Anesthetic: Per anesthesia choice Subjective CHIEF COMPLAINT: Pre-op visit HPI: 38 year old female with abdominal pain for 2-3 months. Also has nausea and heartburn. Recent CT scan did show a questionable appendicolith. Pain today 08/24 Elected for above surgery REVIEW OF SYSTEMS: PAIN ASSESSMENT: General: No weight loss, malaise or fevers. Neuro: No history of TIA's, stroke, FLAT SURFACER tumor, impaired sensorium, hemiplegia, paraplegia or quadraplegia. No neurological symptoms or problems. + Migraines Respiratory: No history of current cough or dyspnea, or pneumonia in the past 6 weeks. No history of respiratory/pulmonary symptoms or problems. Cardiovascular: No history of HTN requiring medication, no history of angina, CHF, OK, cardiac surgery or stents. Denies rest pain, gangrene or revascularization/amputation for PVD. No history of cardiovascular symptoms or problems. 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 : Denies, Patient's last menstrual period was 10/11/2023 (approximate). Endocrine: + T2DM Hematology: No history of bleeding or clotting disorder. Pt is not taking anti-coagulation or platelet medications. No history of hematological symptoms or problems. Oncology: No history of CA metastasis, chemo within 30 days, or radiotherapy within 90 days. Has not lost 10% of body wt in 6 months. No history of oncological symptoms or problems. Psych: No history of psychiatric symptoms or problems. Musculoskeletal: Negative for joint pain or swelling, back pain or muscle pain. Skin: Negative for lesions, rash and itching. The patient has the following: ACTIVE PROBLEM LIST History of Gestational Diabetes Depressed Mood Family History of Ovarian Cancer Bmi 38.0-38.9,Adult Migraine Headache Functional Diarrhea Uncontrolled Type 2 Diabetes Mellitus Without Complication, Without Long-Term Current Use of Insulin Rectal Bleeding Luq Abdominal Pain Altered Bowel Habits TMJ Dysfunction Diabetes (Hcc) Hyperlipidemia Ldl Goal <100 TMJ Tenderness, Right Abnormal Pap Smear of Cervix Left Knee Pain Weight Loss Due to Medication Covid Immunization Dates Postponed - Covid-19 Vaccine () Postponed until 04/25/2024 04/25/2023 Postponed until 04/25/2024 by Goldie Milton LPN (Declined at this time) 02/13/2022 Postponed until 02/13/2023 by Goldie Milton LPN (Declined at this time) 01/10/2021 Postponed until 01/10/2022 by Ilana Herrera APRN.KEEGAN (Declined at this time) PAST MEDICAL HISTORY No date: Abnormal Pap smear of cervix Comment: ascus cannot rule out high grade No date: Diabetes mellitus type 2 in obese No date: Migraine headache No date: Obesity PAST SURGICAL HISTORY 03/24/2013: SECTION HX No date: CHOLECYSTECTOMY HX 2017: INSERTION OF IUD Comment: Mirena IUD removed 10/20/2020 10/20/2020: KYLEENA IUD 07/04/2023: LYSIS OF ADHESIONS 05/10/2013: NEXPLANON INSERTION No date: OSTECTOMY CALCANEUS SPUR W/WO PLNTAR FASCIAL RLS; Left Comment: Dr. Jimenez No date: REPAIR OF NASAL SEPTUM 07/04/2023: SALPINGECTOMY; Bilateral Comment: Laparoscopic B/L Salpingectomy at [facility]-Dr. Condon FAMILY HISTORY Problem Relation Age of Onset No Known Problems Mother Cancer Father pancreatic and renal. Anesthesia Problems Father slow emergence, PONV No Known Problems Brother No Known Problems Son Breast Cancer Maternal Aunt Cervical Cancer Paternal Aunt x2- and one cousin No Known Problems Maternal Grandmother Diabetes Maternal Grandfather Diabetes Paternal Grandfather other (lymphomia) Other maternal cousin other (leukemia) Other cousin Social History Tobacco Use Smoking status: Never Smokeless tobacco: Never Vaping Use Vaping status: Never Used Substance Use Topics Alcohol use: Yes Comment: Rarely Drug use: No Prior to Admission medications as of 10/29/23 1535 Medication Sig Last Dose Taking Phentermine HCl 37.5 mg capsule Take 1 capsule by mouth once daily for 90 days. BMI 30.57 Yes colestipol (COLESTID) 1 gram tablet Take 1 tablet by mouth once daily. For Diarrhea Post Gall Bladder Removal Yes naproxen (NAPROSYN) 500 mg tablet Take 1 tablet by mouth two times a day as needed (for pain/inflammation). Take with food. Yes tirzepatide (MOUNJARO) 10 mg/0.5 mL pen injector Inject 10 mg subcutaneously one time a week. Yes metFORMIN ER (GLUCOPHAGE XR) 500 mg 24 hr tablet Take 1 tablet by mouth two times a day. Yes levonorgestrel (KYLEENA) 17.5 mcg/24 hrs (5 yrs) 19.5 mg IUD 1 Each by INTRAUTERINE route one time only. Yes EPINEPHrine (EPIPEN) 0.3 mg/0.3 mL auto-injector Use for allergic reaction Yes norethindrone (AYGESTIN) 5 mg tablet Take 1 tablet TID until bleeding stops, the BID x 3 days, the daily x [address] (PROTONIX) 40 mg tablet Take 1 tablet by mouth daily before breakfast. Take on empty stomach, 1/2 hr before meal. famotidine (PEPCID) 40 mg tablet Take 1 tablet by mouth as needed. flash glucose sensor (FREESTYLE EMILIA 14 DAY SENSOR) kit Apply and use as directed. Dx: Uncontrolled type 2 diabetes without insulin. flash glucose scanning reader (FREESTYLE EMILIA 3 READER) 1 Each once daily. Phenyleph-Shark Fpy-Qwzy-Geg (HEMORRHOIDAL) 0.25-3-12 % crea by RECTAL route twice daily. Lancets lancets Test blood sugar(s)2 times daily. Dx: uncontrolled type 2 DM insulin needles, DISPOSABLE, (BD INSULIN PEN NEEDLE UF) 31 gauge x 5/16" use once daily as directed blood sugar diagnostic (BLOOD GLUCOSE TEST) test strip Test blood sugar(s) 2 times daily. Dx: uncontrolled type 2 DM No medication comments found. ALLERGIES Allergen Reactions Macadamia Nut Oil Hives, Swelling, Shortness of Breath Meloxicam Intolerance Headache Objective PHYSICAL EXAM: VITALS: Resp 18 Ht 5' 9" (1.75m) Wt 186 lb (84.4kg) LMP 10/11/2023 BMI 27.45 kg/(m^2). VIDEO EXAM: (if completed, performed via video enabled technology) GENERAL: alert and appropriate, in no distress SKIN: no rash noted EYES: no injection and visual acuity is grossly normal OROPHARYNX: moist mucus membranes NECK: full ROM, no cervical LNs noted RESPIRATORY: breathing non-labored CHEST: equal chest rise with normal respiratory effort HEART: patient unable to palpate pulse, no JVD, edema or cyanosis ABDOMEN: mild TTP noted in the RLQ NEUROLOGIC: no obvious deficit Diagnostic tests reviewed for today's visit: Lab Value Units Date High Low HB 12.7 g/dL 10/22/2023 15.5 11.5 HCT 37.1 % 10/22/2023 46.0 36.0 WBC 9.47 k/uL 10/22/2023 11.00 3.70 PLT 300 k/uL 10/22/2023 400 150 NA 139 mmol/L 10/22/2023 144 136 K 3.7 mmol/L 10/22/2023 5.1 3.7 GLUC 117 mg/dL 10/22/2023 99 74 BUN 7 mg/dL 10/22/2023 21 7 CREAT 0.69 mg/dL 10/22/2023 0.96 0.58 PTSEC No results within date range. INR No results within date range. APTT No results within date range. ALT 22 U/L 10/22/2023 38 7 AST 23 U/L 10/22/2023 35 13 TBILI 0.4 mg/dL 10/22/2023 1.3 0.2 TSH No results within date range. Hemoglobin A1C (%) Date Value 10/22/2023 5.6 06/02/2023 6.4 03/07/2023 5.9 10/22/2022 6.1 02/13/2022 8.4 09/25/2020 10.1 06/22/2019 9.6 11/11/2018 7.2 01/13/2018 7.0 05/26/2017 6.8 Hemoglobin A1C (POCT) (%) Date Value 10/03/2023 5.5 05/16/2022 9.6 11/30/2021 7.6 03/28/2021 10.4 12/03/2019 9.6 EKG 06/2023 scanned NSR, nonspecific ST abnormality Instructions Given to Patient: Instructions located in the after visit summary. Patient given verbal and written preop instructions and voices comprehension and compliance. SIGNATURE: Rama Brown APRN.CNP PATIENT NAME: Candelaria Grant DATE: 11/11/2023 TIME: documented in this encounter [facility] 11-11-2023 Instructions Rama Brown APRN.CNP - 11/11/2023 11:04 AM EDT PATIENT PREOPERATIVE INSTRUCTIONS Rashida Estevez, DO scheduled you for your procedure at this surgery center: [facility]: [phone] -- [address] [facility] [address]. Please read below carefully for your personalized instructions. Arrival Time for Surgery: - The Surgery Center or hospital where you are having surgery will call the afternoon before surgery (or Friday for Friday surgery) with a scheduled arrival time. - If you have not heard by 4 pm, please contact the surgery center above. Please be aware that emergency situations arise, which may delay or change your surgical time. If this happens, we will notify you as soon as possible and regret any inconvenience. Dietary Restrictions: - No solid food after midnight. - You may have 12 ounces of clear liquids (water, clear juices such as apple juice or gatorade, carbonated beverages, clear tea, black coffee, jello) until 2 hours before scheduled arrival at facility. No milk or cream No pulp juices Medications: Unless instructed differently below, stay on all of your medications until your surgery. Approved medications to take the morning of surgery with a sip of water: NONE Preoperative Instructions for Patient's with Diabetes Mellitus/ Prediabetes Oral/ Injectable Medication Instructions - Metformin - HOLD DAY OF SURGERY Tirzepatide (Mounjaro) - please HOLD 7 DAYS PRIOR TO SURGERY Stop Phentermine 7 days prior to surgery If you start any new medications after today's visit, please contact the surgeon's office. Blood Thinning Medications: - Stop NSAIDS (Ibuprofen, Advil, Aleve, Motrin, Celebrex, Mobic, etc.) 7 days before surgery, as directed by your surgeon. - Stop Aspirin 7 days before surgery, as directed by your surgeon. - Stop Vitamin E, ALL multi-vitamins, herbals and dietary supplements 7 days before surgery. - You may take Tylenol (Acetaminophen) or any of your pain medications that do not contain aspirin or NSAIDS as needed. Important Reminders: - If you use CPAP/BIPAP, bring the machine with you to the surgery center. - If you are prescribed inhalers for breathing, continue using them. - Candy, mints, and tobacco products are NOT permitted the morning of surgery. - Hearing aids, dentures and glasses may be worn the morning of surgery. - NO jewelry, body piercings, makeup, hairpins or contacts are to be worn the day of surgery. If you develop symptoms such as a fever, cold, or flu, or have other changes to your health within TWO DAYS of scheduled surgery or the morning of surgery, please contact the surgery center above. Personal Belongings: -Please have photo ID and insurance cards. -If you do not have a copy of advance directives on file with us, please bring a copy with you on the day of surgery. - Leave ALL valuables and money at home or with family members. For Outpatient Procedures: - YOU MUST HAVE A RESPONSIBLE SENIOR PRINCIPAL ARCHITECT TAKE YOU HOME. A SKIP MINER BLASTING OR AUTOMATIC CAR WASH ATTENDANT CANNOT BE MADE A RESPONSIBLE SENIOR PRINCIPAL ARCHITECT. - We recommend that a responsible person stays with you overnight to take care of you. - You cannot stay in a hotel alone after outpatient surgery. You will not be permitted to have your surgery, if you do not have someone to take care of you. If you already have an Advance Directive, please fax a copy to [phone] or email to for it to be added to your chart. If you do not have an Advance Directive, you can find the appropriate form and more information at [email or web address]. We recommend that you complete the Advance Directive form found on the website and bring it with you the day of your surgery. It can be witnessed and scanned into your chart that day. documented in this encounter [facility] 11-10-2023 Telephone encounter Note Spoke to the patient in regards to stopping her monjaro one week prior to surgery scheduled with Dr Estevez on 11-18-25. Savi Marroquin PA-C [facility] Work Phone: 11-10-2023 Miscellaneous Notes Spoke to the patient in regards to stopping her monjaro one week prior to surgery scheduled with Dr Estevez on 11-18-25. Savi Marroquin PA-C documented in this encounter [facility] 11-06-2023 History of Presen t illness Narrative HISTORY AND PHYSICAL Candelaria Grant 1985 REFERRING PHYSICIAN: Polly Grant APRN.CNP CHIEF COMPLAINT: Consult HPI: Pt reports ongoing R sided pelvic pain that radiates around to lower back off and on x 2-3 months. With irregular menstrual bleeding. Current period x 2 weeks which is her 2nd period for September. Reports mild bleeding (using about 3/4 mini tampons per day) but with intermittent clots. Recently saw FIBERGLASS BONDING MACHINE TENDER for this on 10/16. Had pelvic US completed yesterday and looks normal. IUD Kyleena placed. Reports significant family history of ovarian problems including cancer and cyst ruptures causing sepsis. Pt also reports ongoing nausea and heartburn. Started on pepcid recently without relief. Pt denies any constipation, diarrhea, or rectal bleeding. Pt does still have appendix. CT abd completed with recent ER visit on 08/[address] [facility] which was normal. No urinary symptoms currently. CT scan did show a questionable appendicolith The patient is being seen by me today at the request of Dr. Grant for my opinion and advice regarding Appendicolith. PAST MEDICAL HISTORY No date: Abnormal Pap smear of cervix Comment: ascus cannot rule out high grade No date: Diabetes mellitus type 2 in obese No date: Migraine headache No date: Obesity PAST SURGICAL HISTORY 03/24/2013: SECTION HX No date: CHOLECYSTECTOMY HX 2017: INSERTION OF IUD Comment: Mirena IUD removed 10/20/2020 10/20/2020: KYLEENA IUD 07/04/2023: LYSIS OF ADHESIONS 05/10/2013: NEXPLANON INSERTION No date: OSTECTOMY CALCANEUS SPUR W/WO PLNTAR FASCIAL RLS; Left Comment: Dr. Jimenez No date: REPAIR OF NASAL SEPTUM 07/04/2023: SALPINGECTOMY; Bilateral Comment: Laparoscopic B/L Salpingectomy at [facility]-Dr. Condon Current Outpatient Medications Medication Sig Vykbyhvrglkzjza-Levzxlijr-MX (BROMFED DM) 2-30-10 mg/5 mL syrup Take 5 mL by mouth four times a day as needed. naproxen (NAPROSYN) 500 mg tablet Take 1 tablet by mouth two times a day as needed (for pain/inflammation). Take with food. norethindrone (AYGESTIN) 5 mg tablet Take 1 tablet TID until bleeding stops, the BID x 3 days, the daily x [address] (PROTONIX) 40 mg tablet Take 1 tablet by mouth daily before breakfast. Take on empty stomach, 1/2 hr before meal. famotidine (PEPCID) 40 mg tablet Take 1 tablet by mouth as needed. tirzepatide (MOUNJARO) 10 mg/0.5 mL pen injector Inject 10 mg subcutaneously one time a week. metFORMIN ER (GLUCOPHAGE XR) 500 mg 24 hr tablet Take 1 tablet by mouth two times a day. levonorgestrel (KYLEENA) 17.5 mcg/24 hrs (5 yrs) 19.5 mg IUD 1 Each by INTRAUTERINE route one time only. EPINEPHrine (EPIPEN) 0.3 mg/0.3 mL auto-injector Use for allergic reaction colestipol (COLESTID) 1 gram tablet Take 1 tablet by mouth once daily. For Diarrhea Post Gall Bladder Removal flash glucose sensor (FREESTYLE EMILIA 14 DAY SENSOR) kit Apply and use as directed. Dx: Uncontrolled type 2 diabetes without insulin. flash glucose scanning reader (FREESTYLE EMILIA 3 READER) 1 Each once daily. Phenyleph-Shark Xzu-Ajgu-Sfe (HEMORRHOIDAL) 0.25-3-12 % crea by RECTAL route twice daily. Lancets lancets Test blood sugar(s)2 times daily. Dx: uncontrolled type 2 DM insulin needles, DISPOSABLE, (BD INSULIN PEN NEEDLE UF) 31 gauge x 5/16" use once daily as directed blood sugar diagnostic (BLOOD GLUCOSE TEST) test strip Test blood sugar(s) 2 times daily. Dx: uncontrolled type 2 DM No current facility-administered medications for this visit. ALLERGIES: Macadamia Nut Oil and Meloxicam PERSONAL HISTORY: Social History Tobacco Use Smoking status: Never Smokeless tobacco: Never Vaping Use Vaping status: Never Used Substance Use Topics Alcohol use: Yes Comment: Rarely Drug use: No FAMILY HISTORY: FAMILY HISTORY Problem Relation Age of Onset No Known Problems Mother Cancer Father pancreatic and renal. No Known Problems Brother No Known Problems Maternal Grandmother Diabetes Maternal Grandfather Diabetes Paternal Grandfather No Known Problems Son Breast Cancer Maternal Aunt Cervical Cancer Paternal Aunt x2- and one cousin other (lymphomia) Other maternal cousin other (leukemia) Other cousin REVIEW OF SYMPTOMS: The review of systems data was entered by the nurse and reviewed by ne Nursing Notes: Jaida Mcmauns RN 10/29/2023 4:04 PM Signed REVIEW OF SYSTEMS: General: The patient NOTES fatigue, denies weight loss, denies weight gain, denies feeling hot, and denies feelings of cold. Eyes: The patient denies glaucoma, denies eye injury/surgery, does not wear glasses or contacts. Ear/Nose/Throat: The patient NOTES allergies, denies hayfever, denies ear infections, and denies bloody noses. Cardiovascular: The patient denies chest pain, denies heart disease, denies high blood pressure,denies cardiac stent, denies prior heart attack, denies irregular heart beat, NOTES high cholesterol, denies poor circulation, denies heart failure, other cardiac issues, denies claudication, denies cold feet, denies peripheral arterial stent. Respiratory: The patient denies tuberculosis, denies pneumonia, denies frequent cough, denies pulmonary embolism, denies shortness of breath, and denies coughing up blood. Gastrointestinal: The patient denies difficulty swallowing, NOTES acid reflux, denies ulcers, denies vomiting, denies jaundice/hepatitis, denies gallbladder problems, denies black or tarry stools, denies hemorrhoids, NOTES bleeding from rectum, denies diverticulitis, NOTES constipation, NOTES diarrhea, denies loss of stool control, and denies hernias. Kidney/Bladder: The patient denies kidney stones, denies urine infections, and denies bloody urine. Skin: The patient denies a history of skin cancer, denies bleeding/changing moles, and denies a history of skin rash. Neurologic: The patient denies a history of epilepsy/convulsions, NOTES headaches, denies head/spinal injuries, and denies stroke/TIA. Psychiatric: The patient denies psychiatric medications, NOTES depression, and denies voices, denies substance abuse. Endocrine: The patient denies thyroid disorders, NOTES diabetes, and denies hormonal problems. Hematologic: The patient denies a history of bruising, denies bleeding, and denies anemia, denies blood clots. Infections: The patient denies a history of measles and mumps, denies rheumatic fever, and denies sexually transmitted diseases. Musculoskeletal: The patient denies back pain/injury, denies back problems, denies sciatica, NOTES knee/foot trouble, denies arthritis, or denies gout. When was patient's last Mammogram screening? N/A Last Colonoscopy: None Jaida Mcmanus RN PHYSICAL EXAMINATION: General: The patient is 38 year old female, well nourished, well hydrated in no acute distress. The patient is oriented to time, place, and person. VITALS: Blood pressure 130/86, pulse 94, resp. rate 17, weight 86.2 kg (190 lb), last menstrual period 10/11/2023, SpO2 99%. HEENT: Normal cephalic, ataumatic, pupils are equally round, sclera are anicteric, mucous membranes are moist, oropharynx is clear. Neck has no masses, asymmetry or lymphadenopathy. Thyroid is unremarkable. Respiratory: Clear to auscultation and percussion. Normal respiratory excursion and pattern. Cardiac: Examination is regular rate and rhythm. Abdominal exam: Soft, nontender, with no palpable masses. No hepatosplenomegaly. No palpable hernias. Rectal exam: exam deferred Extremities: no clubbing, cyanosis or edema. No adenopathy. Other: LABORATORY VALUES: As Noted RADIOLOGIC STUDIES: As Noted Assessment IMPRESSION: Appendicolith PLAN: Given the degree of discomfort that she is having and the abnormality located within the appendix itself I think it is very reasonable to perform a laparoscopic appendectomy on her.The planned surgical procedure was discussed extensively with the patient. The risks, benefits, anticipated outcomes and possible complications were mentioned. My staff has also explained the procedure in understandable terms and the patient was given the option to take printed material concerning the planned procedure. The patient had the opportunity to ask questions concerning the planned procedure. The patient freely consents to the planned procedure. Diagnoses: (K38.9) Appendicolith My findings have been communicated to Dr. Grant via shared medical record. This note will be forwarded to Dr. Gigi Carrillo DO. Return to Clinic: The patient is instructed to follow-up with me 1 week post operatively. Karlos Alexis III, MD documented in this encounter [facility] 11-05-2023 Telephone encounter Note Spoke with patient, surgery scheduled [facility] 11-05-2023 Miscellaneous Notes Spoke with patient, surgery scheduled Patient calling for status update on getting scheduled for surgery that was discussed on 10/29/[address] Alexis. Patient was informed that a nurse would be contacting her to assist with scheduling. Patient states that she is in a lot of pain and would like to have surgery OMAIRA. documented in this encounter [facility] 11-05-2023 Telephone encounter Note Patient has been identified by name and date of : Patient phones for refill(s): Requested Prescriptions Pending Prescriptions Disp Refills colestipol (COLESTID) 1 gram tablet 90 tablet 1 Sig: Take 1 tablet by mouth once daily. For Diarrhea Post Gall Bladder Removal Date of last office visit in primary care: 10/22/2023 Date of next office visit in primary care: Visit date not found Please advise. Thank you. Kaylie Barnett LPN. [facility] 11-05-2023 Miscellaneous Notes Patient has been identified by name and date of : Patient phones for refill(s): Requested Prescriptions Pending Prescriptions Disp Refills colestipol (COLESTID) 1 gram tablet 90 tablet 1 Sig: Take 1 tablet by mouth once daily. For Diarrhea Post Gall Bladder Removal Date of last office visit in primary care: 10/22/2023 Date of next office visit in primary care: Visit date not found Please advise. Thank you. Kaylie Barnett LPN. documented in this encounter [facility] 11-05-2023 Telephone encounter Note Patient calling for status update on getting scheduled for surgery that was discussed on 10/29/[address] Alexis. Patient was informed that a nurse would be contacting her to assist with scheduling. Patient states that she is in a lot of pain and would like to have surgery OMAIAR. [facility] 10-29-2023 Nurse Note REVIEW OF SYSTEMS: General: The patient NOTES fatigue, denies weight loss, denies weight gain, denies feeling hot, and denies feelings of cold. Eyes: The patient denies glaucoma, denies eye injury/surgery, does not wear glasses or contacts. Ear/Nose/Throat: The patient NOTES allergies, denies hayfever, denies ear infections, and denies bloody noses. Cardiovascular: The patient denies chest pain, denies heart disease, denies high blood pressure,denies cardiac stent, denies prior heart attack, denies irregular heart beat, NOTES high cholesterol, denies poor circulation, denies heart failure, other cardiac issues, denies claudication, denies cold feet, denies peripheral arterial stent. Respiratory: The patient denies tuberculosis, denies pneumonia, denies frequent cough, denies pulmonary embolism, denies shortness of breath, and denies coughing up blood. Gastrointestinal: The patient denies difficulty swallowing, NOTES acid reflux, denies ulcers, denies vomiting, denies jaundice/hepatitis, denies gallbladder problems, denies black or tarry stools, denies hemorrhoids, NOTES bleeding from rectum, denies diverticulitis, NOTES constipation, NOTES diarrhea, denies loss of stool control, and denies hernias. Kidney/Bladder: The patient denies kidney stones, denies urine infections, and denies bloody urine. Skin: The patient denies a history of skin cancer, denies bleeding/changing moles, and denies a history of skin rash. Neurologic: The patient denies a history of epilepsy/convulsions, NOTES headaches, denies head/spinal injuries, and denies stroke/TIA. Psychiatric: The patient denies psychiatric medications, NOTES depression, and denies voices, denies substance abuse. Endocrine: The patient denies thyroid disorders, NOTES diabetes, and denies hormonal problems. Hematologic: The patient denies a history of bruising, denies bleeding, and denies anemia, denies blood clots. Infections: The patient denies a history of measles and mumps, denies rheumatic fever, and denies sexually transmitted diseases. Musculoskeletal: The patient denies back pain/injury, denies back problems, denies sciatica, NOTES knee/foot trouble, denies arthritis, or denies gout. When was patient's last Mammogram screening? N/A Last Colonoscopy: None Jaida Mcmanus RN [facility] 10-29-2023 Nurse Note REVIEW OF SYSTEMS: General: The patient NOTES fatigue, denies weight loss, denies weight gain, denies feeling hot, and denies feelings of cold. Eyes: The patient denies glaucoma, denies eye injury/surgery, does not wear glasses or contacts. Ear/Nose/Throat: The patient NOTES allergies, denies hayfever, denies ear infections, and denies bloody noses. Cardiovascular: The patient denies chest pain, denies heart disease, denies high blood pressure,denies cardiac stent, denies prior heart attack, denies irregular heart beat, NOTES high cholesterol, denies poor circulation, denies heart failure, other cardiac issues, denies claudication, denies cold feet, denies peripheral arterial stent. Respiratory: The patient denies tuberculosis, denies pneumonia, denies frequent cough, denies pulmonary embolism, denies shortness of breath, and denies coughing up blood. Gastrointestinal: The patient denies difficulty swallowing, NOTES acid reflux, denies ulcers, denies vomiting, denies jaundice/hepatitis, denies gallbladder problems, denies black or tarry stools, denies hemorrhoids, NOTES bleeding from rectum, denies diverticulitis, NOTES constipation, NOTES diarrhea, denies loss of stool control, and denies hernias. Kidney/Bladder: The patient denies kidney stones, denies urine infections, and denies bloody urine. Skin: The patient denies a history of skin cancer, denies bleeding/changing moles, and denies a history of skin rash. Neurologic: The patient denies a history of epilepsy/convulsions, NOTES headaches, denies head/spinal injuries, and denies stroke/TIA. Psychiatric: The patient denies psychiatric medications, NOTES depression, and denies voices, denies substance abuse. Endocrine: The patient denies thyroid disorders, NOTES diabetes, and denies hormonal problems. Hematologic: The patient denies a history of bruising, denies bleeding, and denies anemia, denies blood clots. Infections: The patient denies a history of measles and mumps, denies rheumatic fever, and denies sexually transmitted diseases. Musculoskeletal: The patient denies back pain/injury, denies back problems, denies sciatica, NOTES knee/foot trouble, denies arthritis, or denies gout. When was patient's last Mammogram screening? N/A Last Colonoscopy: None Jaida Mcmanus RN documented in this encounter [facility] 10-29-2023 History of Presen t illness Narrative Patient presents with: Cough: Cough, ST and MOCTEZUMA x 5 days HPI: Feeling sick for 5 days. Strep test negative here 2 days ago. She has spots on the back of her throat now. Her son was sick also. Positive symptoms: Cough, Sore throat, Headache, Nasal Congestion, chest congestion, right ear pain Negative symptoms: Shortness of breath, Wheezing, Fever, Vomiting, Diarrhea, OTC: Cold Medicine, Ibuprofen MEDICATIONS: Current Outpatient Medications Medication Sig Vjsmzpwjragaxud-Ayqwzqmbi-GO (BROMFED DM) 2-30-10 mg/5 mL syrup Take 5 mL by mouth four times a day as needed. naproxen (NAPROSYN) 500 mg tablet Take 1 tablet by mouth two times a day as needed (for pain/inflammation). Take with food. norethindrone (AYGESTIN) 5 mg tablet Take 1 tablet TID until bleeding stops, the BID x 3 days, the daily x [address] (PROTONIX) 40 mg tablet Take 1 tablet by mouth daily before breakfast. Take on empty stomach, 1/2 hr before meal. famotidine (PEPCID) 40 mg tablet Take 1 tablet by mouth as needed. tirzepatide (MOUNJARO) 10 mg/0.5 mL pen injector Inject 10 mg subcutaneously one time a week. metFORMIN ER (GLUCOPHAGE XR) 500 mg 24 hr tablet Take 1 tablet by mouth two times a day. levonorgestrel (KYLEENA) 17.5 mcg/24 hrs (5 yrs) 19.5 mg IUD 1 Each by INTRAUTERINE route one time only. colestipol (COLESTID) 1 gram tablet Take 1 tablet by mouth once daily. For Diarrhea Post Gall Bladder Removal flash glucose sensor (FREESTYLE EMILIA 14 DAY SENSOR) kit Apply and use as directed. Dx: Uncontrolled type 2 diabetes without insulin. flash glucose scanning reader (FREESTYLE EMILIA 3 READER) 1 Each once daily. EPINEPHrine (EPIPEN) 0.3 mg/0.3 mL auto-injector Use for allergic reaction Lancets lancets Test blood sugar(s)2 times daily. Dx: uncontrolled type 2 DM insulin needles, DISPOSABLE, (BD INSULIN PEN NEEDLE UF) 31 gauge x 5/16" use once daily as directed blood sugar diagnostic (BLOOD GLUCOSE TEST) test strip Test blood sugar(s) 2 times daily. Dx: uncontrolled type 2 DM Phenyleph-Shark Toc-Tudu-Lkt (HEMORRHOIDAL) 0.25-3-12 % crea by RECTAL route twice daily. No current facility-administered medications for this visit. ALLERGIES: ALLERGIES Allergen Reactions Macadamia Nut Oil Hives, Swelling, Shortness of Breath Meloxicam Intolerance Headache VITALS: BP 144/84 Pulse 66 Temp 36.1 C (97 F) (Tympanic) Resp 18 Wt 86.5 kg (190 lb 11.2 oz) LMP 10/11/2023 (Approximate) SpO2 100% BMI 28.16 kg/m PHYSICAL EXAM: GEN: mildly ill appearing HEENT: PERRL, EOMI, conjunctiva clear Ears: canals clear. TMs without erythema, bulge, or effusion Sinuses: non-tender frontal sinus, non-tender maxillary sinuses Throat: moist mucous membranes, mild erythema, no exudate, 2 shallow white ulcerations on the uvula Neck: supple, no thyromegaly, no lymphadenopathy HEART: regular rate and rhythm, no murmurs LUNGS: clear to auscultation, no wheezes or crackles, no increased WOB ASSESSMENT/PLAN: 1. URI, acute - ICD9: 465.9, ICD10: J06.9 (primary diagnosis) 2. Aphthae, ulcer oral - ICD9: 528.2, ICD10: K12.0 - viral URI. Declines viral testing which is reasonable. - Discussed supportive care treatment with rest, lozenges, gargles, cold medicine, and analgesia. Jaron Ayala MD documented in this encounter [facility] 10-27-2023 Instructions Yaquelin Ta APRN.GUM COOK - 10/27/2023 6:37 PM EDT ASSESSMENT/PLAN: 1. Sore throat - ICD9: 462, ICD10: J02.9 (primary diagnosis) - suspect viral - Group A strep molecular testing negative - Discussed supportive care treatment with fluids, rest and analgesia. - STREP A MOLECULAR (POC) 2. Viral URI with cough - ICD9: 465.9, ICD10: J06.9 - Discussed viral etiology and rationale for treatment. - Symptomatic treatment with prn analgesia - Supportive care with fluids and rest - offered COVID/flu/RSV testing. - Follow-up with your PCP in 3-5 days if symptoms have not improved or sooner if symptoms worsen - Discussed red flags and need for immediate medical evaluation if any occur. - Discussed supportive care treatment with fluids, rest and analgesia. - Discussed expected course of illness Yaquelin Ta APRN.CNP Treatment for Viral Upper Respiratory Tract Infections Your body will kill off the virus by itself. Additionally, you can prime your body's immune system. This may help you get better more quickly. Drink lots of fluids Make sure you are eating well Get plenty of rest We do not have any medications that kill off these viruses. Antibiotics are used to treat bacterial infections; however, they are not active against viral infections. There are some things that might help you feel better, though. Vaporizers, humidifiers, hot showers, and hot fluids help open respiratory and sinus passages [place] [facility] [place] may offer relief of nasal and head congestion Roel's Vapor Rub may relieve congestion Tylenol and Advil help control fevers and headaches Salt water gargles help relieve sore throats Chloraceptic spray or throat lozenges may also help relieve sore throat symptoms Occasionally, viral infections turn into something more serious. You should see your doctor or return to the Urgent Care if: You have fevers for longer than five days You have fevers above 102 degrees You are still sick after 10 days You have shortness of breath or wheezing After several days you are getting worse rather than better documented in this encounter [facility] 10-27-2023 History of Presen t illness Narrative Subjective Sore Throat Associated symptoms include coughing and neck pain. Pertinent negatives include no abdominal pain, congestion, diarrhea, ear pain, headaches, shortness of breath or vomiting. Candelaria Grant is a 38 year old female who presents with cough and sore throat for the past 3 days. Her son has same symptoms currently. She has been taking tylenol severe cold. She has not had a fever. States her neck feels sore on right side from gland swelling. Review of Systems Constitutional: Negative for chills and fever. HENT: Positive for sore throat. Negative for congestion and ear pain. Respiratory: Positive for cough. Negative for sputum production and shortness of breath. Cardiovascular: Negative. Gastrointestinal: Negative for abdominal pain, diarrhea, nausea and vomiting. Musculoskeletal: Positive for neck pain. Neurological: Negative for headaches. BP 148/90 Pulse 88 Temp 36.7 C (98.1 F) Resp 21 Wt 87.6 kg (193 lb 2 oz) LMP 10/11/2023 (Approximate) SpO2 98% BMI 28.52 kg/m PAST MEDICAL HISTORY No date: Abnormal Pap smear of cervix Comment: ascus cannot rule out high grade No date: Diabetes mellitus type 2 in obese No date: Migraine headache No date: Obesity PAST SURGICAL HISTORY 03/24/2013: SECTION HX No date: CHOLECYSTECTOMY HX 2017: INSERTION OF IUD Comment: Mirena IUD removed 10/20/2020 10/20/2020: KYLEENA IUD 07/04/2023: LYSIS OF ADHESIONS 05/10/2013: NEXPLANON INSERTION No date: OSTECTOMY CALCANEUS SPUR W/WO PLNTAR FASCIAL RLS; Left Comment: Dr. Jimenez No date: REPAIR OF NASAL SEPTUM 07/04/2023: SALPINGECTOMY; Bilateral Comment: Laparoscopic B/L Salpingectomy at [facility]-Dr. Condon ALLERGIES Macadamia Nut Oil and Meloxicam MEDICATIONS naproxen (NAPROSYN) 500 mg tablet Take 1 tablet by mouth two times a day as needed (for pain/inflammation). Take with food. norethindrone (AYGESTIN) 5 mg tablet Take 1 tablet TID until bleeding stops, the BID x 3 days, the daily x [address] (PROTONIX) 40 mg tablet Take 1 tablet by mouth daily before breakfast. Take on empty stomach, 1/2 hr before meal. famotidine (PEPCID) 40 mg tablet Take 1 tablet by mouth as needed. tirzepatide (MOUNJARO) 10 mg/0.5 mL pen injector Inject 10 mg subcutaneously one time a week. metFORMIN ER (GLUCOPHAGE XR) 500 mg 24 hr tablet Take 1 tablet by mouth two times a day. levonorgestrel (KYLEENA) 17.5 mcg/24 hrs (5 yrs) 19.5 mg IUD 1 Each by INTRAUTERINE route one time only. colestipol (COLESTID) 1 gram tablet Take 1 tablet by mouth once daily. For Diarrhea Post Gall Bladder Removal flash glucose sensor (FREESTYLE EMILIA 14 DAY SENSOR) kit Apply and use as directed. Dx: Uncontrolled type 2 diabetes without insulin. flash glucose scanning reader (FREESTYLE EMILIA 3 READER) 1 Each once daily. Phenyleph-Shark Jwj-Mmyb-Bmj (HEMORRHOIDAL) 0.25-3-12 % crea by RECTAL route twice daily. EPINEPHrine (EPIPEN) 0.3 mg/0.3 mL auto-injector Use for allergic reaction Lancets lancets Test blood sugar(s)2 times daily. Dx: uncontrolled type 2 DM insulin needles, DISPOSABLE, (BD INSULIN PEN NEEDLE UF) 31 gauge x 5/16" use once daily as directed blood sugar diagnostic (BLOOD GLUCOSE TEST) test strip Test blood sugar(s) 2 times daily. Dx: uncontrolled type 2 DM FAMILY HISTORY Problem Relation Age of Onset No Known Problems Mother Cancer Father pancreatic and renal. No Known Problems Brother No Known Problems Maternal Grandmother Diabetes Maternal Grandfather Diabetes Paternal Grandfather No Known Problems Son Breast Cancer Maternal Aunt Cervical Cancer Paternal Aunt x2- and one cousin other (lymphomia) Other maternal cousin other (leukemia) Other cousin Social History Tobacco Use Smoking status: Never Smokeless tobacco: Never Vaping Use Vaping Use: Never used Substance Use Topics Alcohol use: Yes Comment: Rarely Drug use: No Objective Physical Exam Vitals and nursing note reviewed. Constitutional: General: She is not in acute distress. Appearance: Normal appearance. She is not ill-appearing. HENT: Right Ear: Tympanic membrane, ear canal and external ear normal. Left Ear: Tympanic membrane, ear canal and external ear normal. Nose: Nose normal. Mouth/Throat: Pharynx: Uvula midline. No oropharyngeal exudate or posterior oropharyngeal erythema. Cardiovascular: Rate and Rhythm: Normal rate and regular rhythm. Heart sounds: Normal heart sounds. Pulmonary: Effort: Pulmonary effort is normal. No respiratory distress. Breath sounds: Normal breath sounds. No wheezing or rales. Musculoskeletal: Cervical back: Neck supple. Lymphadenopathy: Head: Right side of head: Tonsillar adenopathy present. Left side of head: Tonsillar adenopathy present. Cervical: Cervical adenopathy present. Skin: General: Skin is warm and dry. Findings: No erythema or rash. Neurological: Mental Status: She is alert. ASSESSMENT/PLAN: 1. Sore throat - ICD9: 462, ICD10: J02.9 (primary diagnosis) - suspect viral - Group A strep molecular testing negative - Discussed supportive care treatment with fluids, rest and analgesia. - STREP A MOLECULAR (POC) 2. Viral URI with cough - ICD9: 465.9, ICD10: J06.9 - Discussed viral etiology and rationale for treatment. - Symptomatic treatment with prn analgesia - Supportive care with fluids and rest - offered COVID/flu/RSV testing. - Follow-up with your PCP in 3-5 days if symptoms have not improved or sooner if symptoms worsen - Discussed red flags and need for immediate medical evaluation if any occur. - Discussed supportive care treatment with fluids, rest and analgesia. - Discussed expected course of illness Yaquelin Ta APRN.GUM COOK documented in this encounter [facility] 10-24-2023 Telephone encounter Note Pt called and is notified of providers results and instructions. Pt voices understanding. Luci Alba RN [facility] 10-24-2023 Miscellaneous Notes Pt called and is notified of providers results and instructions. Pt voices understanding. Luci Alba RN General surgery appointment for 11/03 is fine. Naproxen BID is sent to pharmacy as needed. The following approved medication requests have been transmitted electronically. Requested Prescriptions Signed Prescriptions Disp Refills naproxen (NAPROSYN) 500 mg tablet 30 tablet 0 Sig: Take 1 tablet by mouth two times a day as needed (for pain/inflammation). Take with food. Authorizing Provider: POLLY GRANT APRN.KEEGAN Pt called in and reports she was supposed to get a general surgery consult, and she could not get in until 11/04/23 for the mild appendix stone without inflammation. Pt is asking if she could get pain medication sent to [facility]. Pt reports lower abdominal pain into R hip into back 9/10 sharp and constant. Please call and advise. documented in this encounter [facility] 10-24-2023 Telephone encounter Note General surgery appointment for 11/03 is fine. Naproxen BID is sent to pharmacy as needed. The following approved medication requests have been transmitted electronically. Requested Prescriptions Signed Prescriptions Disp Refills naproxen (NAPROSYN) 500 mg tablet 30 tablet 0 Sig: Take 1 tablet by mouth two times a day as needed (for pain/inflammation). Take with food. Authorizing Provider: POLLY GRANT APRN.GUM COOK [facility] 10-24-2023 Telephone encounter Note Pt called in and reports she was supposed to get a general surgery consult, and she could not get in until 11/04/23 for the mild appendix stone without inflammation. Pt is asking if she could get pain medication sent to [facility]. Pt reports lower abdominal pain into R hip into back 9/10 sharp and constant. Please call and advise. [facility] 10-23-2023 Telephone encounter Note Pt notified. Transferred to clinical therapist. Pat Godoy MA [facility] 10-23-2023 Miscellaneous Notes Pt notified. Transferred to clinical therapist. Pat Godoy MA Please call patient and let her know that CT abd shows no acute findings.. however, it did show a possible mild appendix stone without inflammation. This can cause intermittent abd pain that mimics kidney stone discomfort which is what pt is having. I would recommend general surgery consult to get their opinion. Consult placed. Please schedule. Thank you, Polly Grant APRN.GUM COOK documented in this encounter [facility] 10-23-2023 Telephone encounter Note Please call patient and let her know that CT abd shows no acute findings.. however, it did show a possible mild appendix stone without inflammation. This can cause intermittent abd pain that mimics kidney stone discomfort which is what pt is having. I would recommend general surgery consult to get their opinion. Consult placed. Please schedule. Thank you, Polly Grant APRN.GUM COOK [facility] 10-23-2023 History of Presen t illness Narrative Radiology Service Progress Note DATE OF SERVICE: October 23, 2023 TIME: 3:53 PM PATIENT IDENTITY VERIFICATION COMPLETED USING TWO (2) STANDARD IDENTIFIERS: Name and Date of confirmed by patient verbally. FALL SCREENING: Has the patient had 2 falls in the last year or 1 fall with injury or currently using an Ambulatory Assistive Device (Walker, Cane, Wheelchair, Crutches, etc.)? No PATIENT GENDER DATA: Female. status: : No status: NO. PATIENT RELEVANT IMPLANT DATA REVIEWED: Yes PATIENT PRESENTS WITH AN IMPLANTABLE OR ATTACHED MOBILE APPLICATION ARCHITECT: No ALLERGIES: Reviewed and unchanged CONTRAST ALLERGY: NO. EXAM: CT -CONTRAST INDUCED NEPHROPATHY RISK FACTORS: Not applicable CREATININE: Creatinine Date Value Ref Range Status 10/22/2023 0.69 0.58 - 0.96 mg/dL Final 07/16/2023 0.56 (L) 0.58 - 0.96 mg/dL Final 06/02/2023 0.63 0.58 - 0.96 mg/dL Final Estimated Glomerular Filtration Rate Date Value Ref Range Status 10/22/2023 113 >=60 mL/min/1.73m Final Comment: Estimated Glomerular Filtration Rate (eGFR) is calculated using the 2020 CKD-EPI creatinine equation. This equation utilizes serum creatinine, sex, and age as parameters. The creatinine assay has traceable calibration to isotope dilution-mass spectrometry. Refer to KDIGO guidelines for clinical interpretation. In patients with unstable renal function, e.g. those with acute kidney injury, the eGFR may not accurately reflect actual GFR. eGFR- Date Value Ref Range Status 09/25/2020 >60 Final P.O.C.T. RESULTS: POC done: Yes, See Lab Tab October 23, 2023 TREATMENT: N/A PERIPHERAL IV DATA: Ambulatory: A peripheral IV was started in the Left antecubital site with a Angio cath: 22 gauge. RADIOLOGY DEPARTMENT: CT; Exam(s) Completed: Abdomen/Pelvis SIGNATURE: RT Hina(R) PATIENT NAME: Candelaria Grant DATE: October 23, 2023 TIME: 3:53 PM documented in this encounter [facility] 10-23-2023 Telephone encounter Note Patient notified. Marlin Moreno RN [facility] 10-23-2023 Miscellaneous Notes Patient notified. Marlin Moreno RN The IUD is in the correct position. I will send in some Aygestin for her to help with the bleeding. Rupa Grimaldo APRN.KEEGAN Pt calls stating she had pelvic ultrasound completed 10/20. States she got up this morning to pee and had a bright red blood clot sz was a little bit bigger than a quarter. States light bleeding since and just placed a tampon. Advised to wear a pad and monitor bleeding. Bleeding precautions reviewed. Advised Pt that RM returns to office tomorrow and to notify our office if any additional concerns regarding bleeding precautions. Pt voiced understanding. Lorene Lyman RN documented in this encounter [facility] 10-23-2023 Telephone encounter Note The IUD is in the correct position. I will send in some Aygestin for her to help with the bleeding. Rupa Grimaldo APRN.KEEGAN [facility] 10-22-2023 History of Presen t illness Narrative Chief Complaint Patient presents with: 2 month f/up HPI Candelariasharita Grant is a 38 year old female who presents here today for Above Complaints. Candelaria is an established patient of Dr. Carrillo, and myself. Concerns today... Pt reports ongoing R sided pelvic pain that radiates around to lower back off and on x 2-3 months. With irregular menstrual bleeding. Current period x 2 weeks which is her 2nd period for September. Reports mild bleeding (using about 3/4 mini tampons per day) but with intermittent clots. Recently saw [employer] MACHINE TENDER for this on 10/16. Had pelvic US completed yesterday and looks normal. IUD Kyleena placed. Reports significant family history of ovarian problems including cancer and cyst ruptures causing sepsis. Pt also reports ongoing nausea and heartburn. Started on pepcid recently without relief. Pt denies any constipation, diarrhea, or rectal bleeding. Pt does still have appendix. CT abd completed with recent ER visit on 08/[address] [facility] which was normal. No urinary symptoms currently. Past medical history, appointments, medications, allergies reviewed. Previous Medical History PAST MEDICAL HISTORY No date: Abnormal Pap smear of cervix Comment: ascus cannot rule out high grade No date: Diabetes mellitus type 2 in obese No date: Migraine headache No date: Obesity Previous Surgical History PAST SURGICAL HISTORY 03/24/2013: SECTION HX No date: CHOLECYSTECTOMY HX 2017: INSERTION OF IUD Comment: Mirena IUD removed 10/20/2020 10/20/2020: KYLEENA IUD 07/04/2023: LYSIS OF ADHESIONS 05/10/2013: NEXPLANON INSERTION No date: OSTECTOMY CALCANEUS SPUR W/WO PLNTAR FASCIAL RLS; Left Comment: Dr. Jimenez No date: REPAIR OF NASAL SEPTUM 07/04/2023: SALPINGECTOMY; Bilateral Comment: Laparoscopic B/L Salpingectomy at [facility]-Dr. Condon Family History FAMILY HISTORY Problem Relation Age of Onset No Known Problems Mother Cancer Father pancreatic and renal. No Known Problems Brother No Known Problems Maternal Grandmother Diabetes Maternal Grandfather Diabetes Paternal Grandfather No Known Problems Son Breast Cancer Maternal Aunt Cervical Cancer Paternal Aunt x2- and one cousin other (lymphomia) Other maternal cousin other (leukemia) Other cousin Patient Allergies ALLERGIES Allergen Reactions Macadamia Nut Oil Hives, Swelling, Shortness of Breath Meloxicam Intolerance Headache Current Medications Current Outpatient Medications on File Prior to Visit Medication Sig famotidine (PEPCID) 40 mg tablet Take 1 tablet by mouth as needed. tirzepatide (MOUNJARO) 10 mg/0.5 mL pen injector Inject 10 mg subcutaneously one time a week. Phentermine HCl 37.5 mg capsule Take 1 capsule by mouth once daily for 90 days. BMI 30.57 Do not start before July 24, 2023. metFORMIN ER (GLUCOPHAGE XR) 500 mg 24 hr tablet Take 1 tablet by mouth two times a day. levonorgestrel (KYLEENA) 17.5 mcg/24 hrs (5 yrs) 19.5 mg IUD 1 Each by INTRAUTERINE route one time only. colestipol (COLESTID) 1 gram tablet Take 1 tablet by mouth once daily. For Diarrhea Post Gall Bladder Removal flash glucose sensor (FREESTYLE EMILIA 14 DAY SENSOR) kit Apply and use as directed. Dx: Uncontrolled type 2 diabetes without insulin. flash glucose scanning reader (FREESTYLE EMILIA 3 READER) 1 Each once daily. Phenyleph-Shark Pgs-Hwds-Yrn (HEMORRHOIDAL) 0.25-3-12 % crea by RECTAL route twice daily. EPINEPHrine (EPIPEN) 0.3 mg/0.3 mL auto-injector Use for allergic reaction Lancets lancets Test blood sugar(s)2 times daily. Dx: uncontrolled type 2 DM insulin needles, DISPOSABLE, (BD INSULIN PEN NEEDLE UF) 31 gauge x 5/16" use once daily as directed blood sugar diagnostic (BLOOD GLUCOSE TEST) test strip Test blood sugar(s) 2 times daily. Dx: uncontrolled type 2 DM No current facility-administered medications on file prior to visit. Social History Social History Tobacco Use Smoking status: Never Smokeless tobacco: Never Vaping Use Vaping Use: Never used Substance Use Topics Alcohol use: Yes Comment: Rarely Drug use: No REVIEW OF SYSTEMS: as above Reviewed relevant PMHx, PSHx, Social Hx, current medications and allergies. Review of Symptoms REVIEW OF SYSTEMS See HPI. EXAM: BP 138/80 (BP Site: Left Arm, BP Position: Sitting, BP Cuff Size: Regular Adult) Pulse 68 Resp 16 Wt 85.7 kg (189 lb) LMP 10/11/2023 (Approximate) BMI 27.91 kg/m General Appearance: Well appearing, alert, in no acute distress, well-hydrated, well nourished.. Skin: Skin color, texture, turgor normal, no suspicious rashes or lesions. Head: Normocephalic, no masses, lesions, tenderness or abnormalities. Lungs: Lungs clear to auscultation. No wheezing, rhonchi, rales.. Heart: RRR without murmur, gallop, or rubs. No ectopy. Abdomen: Normal abdominal exam, Negative CVA tenderness, Positive findings: tenderness moderate, voluntary guarding, and rebound present RLQ and LLQ. Health Maintenance List Depression Screening Never done Anxiety Screening Never done Dilated Retinal Exam due on 03/17/2022 Urine Albumin:Creatinine Ratio due on 10/23/2023 DTaP,Tdap,Td Vaccine(1 - Tdap) due on 10/26/2023 Pneumococcal Vaccine(2 of 2 - PCV) due on 01/10/2024 Covid-19 Vaccine(1 - 2022- season) due on 04/25/2024 Influenza Vaccine(1) due on 11/16/2023 HbA1C due on 04/04/2024 Diabetic Foot Exam due on 04/25/2024 LDL Cholesterol due on 06/01/2024 Annual PCP Team Chronic Disease Visit due on 10/21/2024 Cervical Cancer Screening due on 04/02/2027 Hepatitis C Screening Completed HIV Screening Completed HPV Vaccine Aged Out ASSESSMENT/PLAN: 1. Right lower quadrant abdominal pain - ICD9: 789.03, ICD10: R10.31 (primary diagnosis) [employer] TENDER vs GI. Continue to follow with [employer] [facility]ACHINE TENDER recommendations Will look further into GI cause. CT abd/pelvis STAT. Looking for DDX of appendicitis, kidney stones, ovarian cyst rupture, constipation, obstruction, etc. - Increase fiber in diet - [place] low residue diet Refer to GI if no improvement and no answers found. - CT ABD/PEL W IVCON - IV CONTRAST (RADIOLOGY PROCEDURE) - ENTERIC CONTRAST (RADIOLOGY PROCEDURE) 2. Irregular menstrual bleeding - ICD9: 626.4, ICD10: N92.6 Lab work due to ongoing bleeding. Weight loss/changes may be effecting menstrual cycle. - COMPREHENSIVE METABOLIC PANEL - COMPLETE BLOOD COUNT AND DIFFERENTIAL 3. Heart burn - ICD9: 787.1, ICD10: R12 Trial protonix daily. May need to consider discontinuing mounjaro. - PANTOPRAZOLE 40 MG TABLET,DELAYED RELEASE 4. Nausea - ICD9: 787.02, ICD10: R11.0 See above. - CT ABD/PEL W IVCON - CT ABD/PEL W IVCON Prescription instructions reviewed with patient as applicable. Potential red flag symptoms discussed with the patient. Reviewed appropriate action plan to take if red flag symptoms occur. Patient agreeable to treatment plan. Polly Grant APRN.KEEGAN [id number] [place] [address] documented in this encounter [facility] 10-22-2023 Telephone encounter Note Pt calls stating she had pelvic ultrasound completed 10/20. States she got up this morning to pee and had a bright red blood clot sz was a little bit bigger than a quarter. States light bleeding since and just placed a tampon. Advised to wear a pad and monitor bleeding. Bleeding precautions reviewed. Advised Pt that RM returns to office tomorrow and to notify our office if any additional concerns regarding bleeding precautions. Pt voiced understanding. Lorene Lyman RN [facility] 10-21-2023 History of Presen t illness Narrative Pelvic ultrasound was performed on Candelaria Grant. Remote Read. To characterize the IUD, three dimensional imaging was created on a dedicated stand-alone 3D workstation with images created and archived, and supervised and reviewed by the interpreting physician utilizing images from an ultrasound scan performed today. Please see imaging tab for documentation and results. Master Salmeron MD OBGYN Staff Physician SIGNATURE: Master Salmeron MD PATIENT NAME: Candelaria Grant DATE: October 21, 2023 TIME: 2:57 PM PAGER/CONTACT #: Pager ([phone]) OBGYN Call Schedule: QGenda documented in this encounter [facility] 10-17-2023 History of Presen t illness Narrative Candelaria Grant is a 38 year old female who presents for problem visit pelvic pain for several months. HPI: over the past month the pain has become worst Standing makes the pain worse Worse pain is on the right side into the hip area some pain on the left Periods usually light 3 days 2 periods over the past month more painful lasting 5-6 days Recently treated for BV OB History T1 L1 SAB0 IAB0 Ectopic0 Multiple0 Live Births0 Comment: 1 section [employer] Consult[employer] History LMP: 10/11/2023 (Approximate), IUD Age at Menarche: Age at First : Age at Menopause: [employer] Consultant History Comments: Sexual Activity: Yes; Male Contraception: I.U.D. PAST MEDICAL HISTORY No date: Abnormal Pap smear of cervix Comment: ascus cannot rule out high grade No date: Diabetes mellitus type 2 in obese No date: Migraine headache No date: Obesity PAST SURGICAL HISTORY 03/24/2013: SECTION HX No date: CHOLECYSTECTOMY HX 2017: INSERTION OF IUD Comment: Mirena IUD removed 10/20/2020 10/20/2020: KYLEENA IUD 07/04/2023: LYSIS OF ADHESIONS 05/10/2013: NEXPLANON INSERTION No date: OSTECTOMY CALCANEUS SPUR W/WO PLNTAR FASCIAL RLS; Left Comment: Dr. Jimenez No date: REPAIR OF NASAL SEPTUM 07/04/2023: SALPINGECTOMY; Bilateral Comment: Laparoscopic B/L Salpingectomy at [facility]-Dr. Condon FAMILY HISTORY Problem Relation Age of Onset No Known Problems Mother Cancer Father pancreatic and renal. No Known Problems Brother No Known Problems Maternal Grandmother Diabetes Maternal Grandfather Diabetes Paternal Grandfather No Known Problems Son Breast Cancer Maternal Aunt Cervical Cancer Paternal Aunt x2- and one cousin other (lymphomia) Other maternal cousin other (leukemia) Other cousin Social History Tobacco Use Smoking status: Never Smokeless tobacco: Never Vaping Use Vaping Use: Never used Substance Use Topics Alcohol use: Yes Comment: Rarely Drug use: No Current Outpatient Medications Medication Sig famotidine (PEPCID) 40 mg tablet Take 1 tablet by mouth as needed. tirzepatide (MOUNJARO) 10 mg/0.5 mL pen injector Inject 10 mg subcutaneously one time a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 Denies CP, SOB, dizziness PHYSICAL EXAMINATION: VITALS: None- VIDEO GENERAL: The patient is well nourished, well hydrated in no acute distress. , The patient is oriented to time, place, and person. NECK: full range of motion IMPRESSION: 38yo female that desires permanent sterilization. PLAN: Laparoscopic bilateral salpingectomy Pt has been counseled on risks/benefits and alternatives of surgery including but not limited to anesthesia, bleeding, infection, injury to pelvic structures including bowel, bladder, ureters and vessels. Pt wishes to proceed with surgery at this time. Risk of regret reviewed. Plan to leave [facility]. Type 2 DM well controlled- continue medications. Pre op labs and EKG ordered. Title 19 signed on 05/21/23 Pre and post op instructions reviewed today I have reviewed and updated past medical and surgical history, medications and allergies Natasha Villatoro MD documented in this encounterHolzer Health System04-11-2024 Miscellaneous Notes* Telephone Encounter - Karla Aldana LPN - 06/26/2023 3:06 PM EDT Moniquedarryn Pepedarryn Pharmacist called regarding pt. Name and date of given. She was asking for pt's BMIbecause of medication Phentermine. 06-17-23 BMI was 31.01. Karla Aldana LPN documented in this encounterHolzer Health System04-11-2024 Miscellaneous Notes* Telephone Encounter - Carolina Dwyer MA - 06/26/2023 11:12 AM EDT Patient notified of provider message and verbalizes understanding Carolina Dwyer MA June 26, 2023 11:13 AM * Telephone Encounter - Karley Jimenez APRN.[place] - 06/26/2023 10:12 AM EDT Please let pt. Know that I am aware that she wanted Adipex for weight. I want to make sure that we are addressing blood sugar, too. Please increase metformin as previously discussed. The [facility] policy is that she can start Adpiex daily but must be seen monthly x 3 for refills. She must loose 5% of body weight to continue it. This will require a diet and exercise program to achieve that goal. She will need to lose 11 lb in 90 days to continue this medication. I will order the medication for 30 days and she will need to fill it with [facility] in July at her appt. * Telephone Encounter - Macy Espinal MA - 06/23/2023 4:36 PM EDT Call to pt. Pt states that she does not want the Adipex to control her sugars she wants the Adipex to help her lose weight and control her appetite. Has been on this in the past. Pt states that she's been on several injectable medications in the past and has ran into the same issue of not being able to get them or not controlling her DM. Mounjaro is the only one that has worked well for her and now she has having difficulty getting this. [facility] Will not increase Metformin as this makes her sick. Notified pt I would route message back to Provider to review and advise. May need to discuss with PCP/Team to see what other options are such as Endo referral. We have someone who comes to [place]. Macy Espinal MA * Telephone Encounter - Karley Jimenez APRN.CNS - 06/23/2023 4:12 PM EDT Adipex will not help her diabetes. Her diabetes was not well controlled. Why don't we increase metformin ER to 500 mg 2 x day, Have her meet with a electronics technology instructor, And Have [facility] with [facility]? I would start her on the 1.7 mg dose since she had been tolerating Mounjaro. Metformin also helps with modest weight loss. Also, we want her to be healthier. * Telephone Encounter - Erica Ayon LPN - 06/23/2023 4:01 PM EDT Pt had OV 06/17/23. Pt was prescribed Monjouro. Pt reports she cannot find it anywhere and is asking if she can go back on Adipex. Please review and advise. Erica Ayon LPN documented in this encounterHolzer Health System04-02-2024 Instructions* Patient Instructions* Karley Jimenez APRN.CNS - 06/17/2023 10:22 AM EDT 1) Increase Mounjaro 15 once a week injection 2) Augmentin 2 x day for 10 days- Take all the antibiotic 3) Fluconazole 150mg once if needed documented in this encounterHolzer Health System04-02-2024 History of Present illness Narrative* Karley Jimenez APRN.CNS - 06/17/2023 10:02 AM EDT This is a 38 year old female who presents today with: Patient presents with: Weight Problem: Would like to be put back on Adipex. HISTORY OF PRESENT ILLNESS: Candelaria Grant is a 38 year old female. Patient presents with: Weight Problem: Would like to be put back on Adipex. Wants to go back on Adipex. Stopped because she was on escitalopram and did not want the two together. Off Lexapro for months. Laid off from work, stress eating. Menses increases appetite. BSS have been increasing but not surewhat they are. PAST MEDICAL HISTORY: PAST MEDICAL HISTORY Diagnosis Date Abnormal Pap smear of cervix ascus cannot rule out high grade Diabetes mellitus type 2 in obese Migraine headache Obesity PAST SURGICAL HISTORY Procedure Laterality Date SECTION HX 03/24/2013 CHOLECYSTECTOMY HX INSERTION OF IUD 2017 Mirena IUD removed 10/20/2020 KYLEENA IUD 10/20/2020 NEXPLANON INSERTION 05/10/2013 OSTECTOMY CALCANEUS SPUR W/WO PLNTAR FASCIAL RLS Left Dr. Jimenez REPAIR OF NASAL SEPTUM ALLERGIES Macadamia Nut Oil and Meloxicam MEDICATIONS Current Outpatient Medications Medication Sig tirzepatide (MOUNJARO) 10 mg/0.5 mL pen injector Inject 10 mg subcutaneously one time a week. levonorgestrel (KYLEENA) 17.5 mcg/24 hrs (5 yrs) 19.5 mg IUD 1 Each by INTRAUTERINE route one time only. colestipol (COLESTID) 1 gram tablet Take 1 tablet by mouth once daily. For Diarrhea Post Gall Bladder Removal flash glucose sensor (FREESTYLE EMILIA 14 DAY SENSOR) kit Apply and use as directed. Dx: Uncontrolled type 2 diabetes without insulin. flash glucose scanning reader (FREESTYLE EMILIA 3 READER) 1 Each once daily. metFORMIN ER (GLUCOPHAGE XR) 500 mg 24 hr tablet Take 1 tablet by mouth daily with breakfast. EPINEPHrine (EPIPEN) 0.3 mg/0.3 mL auto-injector Use for allergic reaction famotidine (PEPCID) 40 mg tablet Take 40 mg by mouth as needed. methylPREDNISolone (MEDROL, QUINTON,) 4 mg Dose-Pack Follow dosing instructions, take with food. escitalopram oxalate (LEXAPRO) 10 mg tablet Take 1 tablet by mouth once daily. Phenyleph-Shark Iqz-Olwo-Xvr (HEMORRHOIDAL) 0.25-3-12 % crea by RECTAL route twice daily. Lancets lancets Test blood sugar(s)2 times daily. Dx: uncontrolled type 2 DM insulin needles, DISPOSABLE, (BD INSULIN PEN NEEDLE UF) 31 gauge x 5/16" use once daily as directed blood sugar diagnostic (BLOOD GLUCOSE TEST) test strip Test blood sugar(s) 2 times daily. Dx: uncontrolled type 2 DM No current facility-administered medications for this visit. FAMILY HISTORY Problem Relation Age of Onset No Known Problems Mother Cancer Father pancreatic and renal. No Known Problems Brother No Known Problems Maternal Grandmother Diabetes Maternal Grandfather Diabetes Paternal Grandfather No Known Problems Son Breast Cancer Maternal Aunt Cervical Cancer Paternal Aunt x2- and one cousin other (lymphomia) Other maternal cousin other (leukemia) Other cousin Social History Tobacco Use Smoking status: Never Smokeless tobacco: Never Vaping Use Vaping Use: Never used Substance Use Topics Alcohol use: Yes Comment: Rarely Drug use: No REVIEW OF SYSTEMS GENERAL: + weight gain, + malaise, no fevers/chills HEENT: Positive for frequent or significant headaches- right side of neck, No changes in hearing orvision. NECK: Negative for lumps, goiter, pain and significant neck swelling RESPIRATORY: Negative for cough, hemoptysis, wheezing, dyspnea or shortness of breath CARDIOVASCULAR: Negative for chest pain, leg swelling, orthopnea, or palpitations GI: No nausea, vomiting, or diarrhea/constipation. No hematochezia/melena. No heartburn or reflux symptoms. : No history of dysuria, frequency or incontinence MUSCULOSKELETAL: Negative for joint pain or swelling. [place] in left side of neck from getting hit with chair, tender to palpate SKIN: Negative for lesions, rash, and itching ENDOCRINE: Negative for cold or heat intolerance, polyuria, polydipsia and goiter NEURO: No history of headaches, syncope, paralysis, seizures or tremors MOOD: Negative for depression, anxiety, or suicidal ideation. EXAM: BP 132/80 Pulse 72 Resp 16 Wt 95.3 kg (210 lb) LMP 12/09/2022 (Approximate) SpO2 99% BMI 31.01 kg/m PHYSICAL EXAM: General Appearance: Well appearing, alert, in no acute distress, well-hydrated, well nourished.. Skin: Skin color, texture, turgor normal, no suspicious rashes or lesions. Head: Normocephalic, no masses, lesions, right maxillary tenderness or abnormalities. Nose/Sinuses: Bloody drainage right nare- swollen shut, left nare smooth and red. Lungs: Lungs clear to auscultation. No wheezing, rhonchi, rales.. Heart: RRR without murmur, gallop, or rubs. No ectopy. Abdomen: Normal abdominal exam, Abdomen soft, non-tender. Bowel sounds normal. No masses, organomegaly. LABS: ASSESSMENT/PLAN: 1. Class 1 obesity due to excess calories with serious comorbidity and body mass index (BMI) of 30.0 to 30.9 in adult - ICD9: 278.00, V85.30, ICD10: E66.09, Z68.30 (primary diagnosis) Weight increasing - Behavioral and pharmacological intervention - Increase Mounjaro to 15mg q week 2. Controlled type 2 diabetes mellitus with hyperglycemia (HCC) - ICD9: 250.02, ICD10: E11.65 - Controlled - Increase Mounjaro to max dose 3. Chronic maxillary sinusitis - ICD9: 473.0, ICD10: J32.0 - Will begin treatment with Augmentin 875 mg PO BID for 10 days - Fluconazole 150 mg once if needed for vaginal yeast overgrowth Discussed treatment plan and patient voices understanding. Patient's questions answered appropriately. Medications and potential side effects were discussed and patient voices understanding. Return to the office as scheduled or as needed for worsening/no improvement. Karley Jimenez APRN.CNS The patient indicates understanding of these issues and agrees with the plan. documented in this encounterHolzer Health System04-01-2024 Instructions* Patient Instructions* Yaquelin Ta APRN.CNP - 06/16/2023 6:11 PM EDT ASSESSMENT/PLAN: 1. Headache, unspecified headache type - ICD9: 784.0, ICD10: R51.9 (primary diagnosis) - KETOROLAC 60 MG/2 ML INTRAMUSCULAR SOLUTION- given if office - Benadryl offered-patient declined. - Medrol dose pack prescribed per headache protocol. - Pain reassessed prior to discharge-15 minutes after medication administration- patient states pain is reduced to a 4/10. 2. Nausea - ICD9: 787.02, ICD10: R11.0 - ONDANSETRON 4 MG DISINTEGRATING TABLET- given in office. 3. Trapezius muscle spasm - ICD9: 728.85, ICD10: M62.838 - recommend gentle massage, alternate heat and ice application. - Follow-up with your PCP in 3-5 days if symptoms have not improved or sooner if symptoms worsen - Discussed red flags and need for immediate medical evaluation if any occur. - Discussed supportive care treatment with fluids, rest and analgesia. - Discussed expected course of illness Yaquelin Ta APRN.CNP HEADACHE GENERAL INFORMATION: Almost everyone has a headache occasionally. Most headaches are caused by tension, eye strain, or emotional upset. Headaches can also occur with many medical illnesses. They may be a side effect of some medications. A headache that occurs without other symptoms and only lasts a few hours probably isn't a cause for concern. INSTRUCTIONS: 1. You may use gzhm-vyo-hoeynhh pain medication such as acetaminophen, ibuprofen, or aspirin unlessyour doctor recommends otherwise. 2. Try some of the following measures to relieve your headache: Stretch and massage the muscles in your shoulders, neck, jaw, and scalp. Take a hot bath. Rest in a quiet, darkened room. Place a warm or cold wet cloth (whichever feels better to you) over the aching area. 3. Don't skip meals or delay meals for very long. Drink plenty of fluids. 4. Avoid alcoholic beverages and cigarette smoking. These often make a headache worse. 5. Get plenty of rest. A good night's sleep often is the best way to relieve a headache. CONTACT YOUR DOCTOR IF: 1. Your headache gets worse or lasts longer than 24 hours. 2. You develop a temperature over 100.5 F (38 C) 3. You need to take medicine to relieve headache pain more than 3 times a week. RETURN TO THE ED IF: 1. Your headache is different from any headache you ever had before, or is "the worst headache of your life." 2. You feel confused or drowsy. 3. Your neck feels stiff. 4. You have a temperature of 102 F (39 C) or higher. 5. You have eye problems such as sensitivity to light or blurred or double vision. 6. You start to vomit. 7. You have difficulty walking, talking, or moving your arms or legs. documented in this encounterHolzer Health System04-01-2024 History of Present illness Narrative* Yaquelin Ta APRN.CNP - 06/16/2023 5:54 PM EDT Subjective Headache Associated symptoms include nausea and vomiting. Pertinent negatives include no fever. Candelaria Grant is a 38 year old female who presents with a headache x 1 week. Has pain in right neck and shoulder-states muscle feels "tight". Denies injury. Rates headache pain 9/10. She vomited once earlier today. She has a history of migraines. States she used to take meloxicam for this but stopped because it caused her to have headaches. She took one her son's headache pills today but can't remember the name of it. She denies fever or recent URI symptoms. Denies any changes in vision or speech or coordination. Patient states she has been under a lot of stress recently-lost her job. States "it's been rough". Review of Systems Constitutional: Negative for chills and fever. HENT: Negative for congestion, ear pain and sore throat. Respiratory: Negative for cough. Cardiovascular: Negative. Gastrointestinal: Positive for nausea and vomiting. Negative for abdominal pain. Musculoskeletal: Positive for myalgias and neck pain. Negative for back pain and falls. Neurological: Positive for headaches. Negative for dizziness, tingling, tremors, sensory change, speech change, focal weakness, loss of consciousness and weakness. BP 134/72 Pulse 72 Temp 36.2 C (97.2 F) Resp 16 Wt 95.8 kg (211 lb 3.2 oz) LMP 12/09/2022(Approximate) SpO2 98% BMI 31.19 kg/m PAST MEDICAL HISTORY Diagnosis Date Abnormal Pap smear of cervix ascus cannot rule out high grade Diabetes mellitus type 2 in obese Migraine headache Obesity PAST SURGICAL HISTORY Procedure Laterality Date SECTION HX 03/24/2013 CHOLECYSTECTOMY HX INSERTION OF IUD 2016 Mirena IUD removed 10/20/2020 KYLEENA IUD 10/20/2020 NEXPLANON INSERTION 05/10/2013 OSTECTOMY CALCANEUS SPUR W/WO PLNTAR FASCIAL RLS Left Dr. Jimenez REPAIR OF NASAL SEPTUM ALLERGIES Macadamia Nut Oil and Meloxicam MEDICATIONS tirzepatide (MOUNJARO) 10 mg/0.5 mL pen injector Inject 10 mg subcutaneously one time a week. levonorgestrel (KYLEENA) 17.5 mcg/24 hrs (5 yrs) 19.5 mg IUD 1 Each by INTRAUTERINE route one time only. colestipol (COLESTID) 1 gram tablet Take 1 tablet by mouth once daily. For Diarrhea Post Gall Bladder Removal flash glucose sensor (FREESTYLE EMILIA 14 DAY SENSOR) kit Apply and use as directed. Dx: Uncontrolled type 2 diabetes without insulin. flash glucose scanning reader (FREESTYLE EMILIA 3 READER) 1 Each once daily. metFORMIN ER (GLUCOPHAGE XR) 500 mg 24 hr tablet Take 1 tablet by mouth daily with breakfast. escitalopram oxalate (LEXAPRO) 10 mg tablet Take 1 tablet by mouth once daily. EPINEPHrine (EPIPEN) 0.3 mg/0.3 mL auto-injector Use for allergic reaction Lancets lancets Test blood sugar(s)2 times daily. Dx: uncontrolled type 2 DM insulin needles, DISPOSABLE, (BD INSULIN PEN NEEDLE UF) 31 gauge x 5/16" use once daily as directed blood sugar diagnostic (BLOOD GLUCOSE TEST) test strip Test blood sugar(s) 2 times daily. Dx: uncontrolled type 2 DM famotidine (PEPCID) 40 mg tablet Take 40 mg by mouth as needed. Phenyleph-Shark Tmh-Fyzy-Tlh (HEMORRHOIDAL) 0.25-3-12 % crea by RECTAL route twice daily. FAMILY HISTORY Problem Relation Age of Onset No Known Problems Mother Cancer Father pancreatic and renal. No Known Problems Brother No Known Problems Maternal Grandmother Diabetes Maternal Grandfather Diabetes Paternal Grandfather No Known Problems Son Breast Cancer Maternal Aunt Cervical Cancer Paternal Aunt x2- and one cousin other (lymphomia) Other maternal cousin other (leukemia) Other cousin Social History Tobacco Use Smoking status: Never Smokeless tobacco: Never Vaping Use Vaping Use: Never used Substance Use Topics Alcohol use: Yes Comment: Rarely Drug use: No Objective Physical Exam Vitals and nursing note reviewed. Constitutional: Appearance: Normal appearance. HENT: Right Ear: Tympanic membrane, ear canal and external ear normal. Left Ear: Tympanic membrane, ear canal and external ear normal. Mouth/Throat: Pharynx: Uvula midline. Eyes: Extraocular Movements: Right eye: Normal extraocular motion. Left eye: Normal extraocular motion. Pupils: Pupils are equal, round, and reactive to light. Cardiovascular: Rate and Rhythm: Normal rate and regular rhythm. Heart sounds: Normal heart sounds. Pulmonary: Effort: Pulmonary effort is normal. No respiratory distress. Breath sounds: Normal breath sounds. No wheezing or rales. Musculoskeletal: Cervical back: Neck supple. Lymphadenopathy: Cervical: No cervical adenopathy. Skin: General: Skin is warm and dry. Findings: No erythema or rash. Neurological: General: No focal deficit present. Mental Status: She is alert and oriented to person, place, and time. Gait: Gait is intact. ASSESSMENT/PLAN: 1. Headache, unspecified headache type - ICD9: 784.0, ICD10: R51.9 (primary diagnosis) - KETOROLAC 60 MG/2 ML INTRAMUSCULAR SOLUTION- given if office - Benadryl offered-patient declined. - Medrol dose pack prescribed per headache protocol. 2. Nausea - ICD9: 787.02, ICD10: R11.0 - ONDANSETRON 4 MG DISINTEGRATING TABLET- given in office. 3. Trapezius muscle spasm - ICD9: 728.85, ICD10: M62.838 - recommend gentle massage, alternate heat and ice application. - Follow-up with your PCP in 3-5 days if symptoms have not improved or sooner if symptoms worsen - Discussed red flags and need for immediate medical evaluation if any occur. - Discussed supportive care treatment with fluids, rest and analgesia. - Discussed expected course of illness Yaquelin Ta APRN.GUM COOK documented in this encounterHolzer Health System03-27-2024 History and physical note Author Ruth Ann Suazo-Shaggy muñiz [facility] June 11, 2023 9:21am Note Date/Time June 11, 2023 9:2 1am [facility] Medical Records Department [address] [place] [id number] H&P Exam - LINOLEUM PRINTER 06/11/23 0920 MR#: [id number] Acct: [id number] Name: CANDELARIA GRANT Rep #:[id number] : 1985 38 From: Natasha Condon MD PCP: Dr. Gigi Carrillo, DO Status:CO E [facility] Location: [facility] History and Physical Date of Admission: 06/12/23 Pre-Op History and Physical ? HPI: The patient is a 38 year old female presenting for pre-operative visit. She is scheduled for laparoscopic bilateral salpingectomy, for desires sterilization on Date to be determined . Procedure discussed along with risks, benefits and complications. Other alternatives discussed for management. Consent form signed? Yes. ? ? PAST MEDICAL HISTORY PAST MEDICAL HISTORY Diagnosis Date ? Abnormal Pap smear of cervix ? ? ascus cannot rule out high grade ? Diabetes mellitus type 2 in obese ? ? Migraine headache ? ? Obesity ? ? ? PAST SURGICAL HISTORY PAST SURGICAL HISTORY Procedure Laterality Date ? SECTION HX ? 03/24/2013 ? CHOLECYSTECTOMY HX ? ? ? INSERTION OF IUD ? 2017 ? Mirena IUD removed 10/20/2020 ? KYLEENA IUD ? 10/20/2020 ? NEXPLANON INSERTION ? 05/10/2013 ? OSTECTOMY CALCANEUS SPUR W/WO PLNTAR FASCIAL RLS Left ? ? Dr. Jimenez ? REPAIR OF NASAL SEPTUM ? CURRENT MEDICATIONS Current Outpatient Medications Medication Sig Dispense Refill ? levonorgestrel (KYLEENA) 17.5 mcg/24 hrs (5 yrs) 19.5 mg IUD 1 Each by INTRAUTERINE route one time only. ? ? ? colestipol (COLESTID) 1 gram tablet Take 1 tablet by mouth once daily. ForDiarrhea Post Gall Bladder Removal 90 tablet 1 ? flash glucose sensor (FREESTYLE EMILIA 14 DAY SENSOR) kit Apply and use as directed. Dx: Uncontrolled type 2 diabetes without insulin. 1 Kit 3 ? flash glucose scanning reader (FREESTYLE EMILIA 3 READER) 1 Each once daily. 1 Each 5 ? metFORMIN ER (GLUCOPHAGE XR) 500 mg 24 hr tablet Take 1 tablet by mouth daily with breakfast. 90 tablet 2 ? tirzepatide (MOUNJARO) 7.5 mg/0.5 mL pen injector Inject 7.5 mg subcutaneously one time a week. 2 mL 2 ? escitalopram oxalate (LEXAPRO) 10 mg tablet Take 1 tablet by mouth once daily. 30 tablet 5 ? EPINEPHrine (EPIPEN) 0.3 mg/0.3 mL auto-injector Use for allergic reaction 2 Each 1 ? Lancets lancets Test blood sugar(s)2 times daily. Dx: uncontrolled type 2DM 100 Each 11 ? insulin needles, DISPOSABLE, (BD INSULIN PEN NEEDLE UF) 31 gauge x 5/16" use once daily as directed 100 Each 1 ? blood sugar diagnostic (BLOOD GLUCOSE TEST) test strip Test blood sugar(s)2 times daily. Dx: uncontrolled type 2 DM 50 Strip 11 ? famotidine (PEPCID) 40 mg tablet Take 40 mg by mouth as needed. ? ? 0 ? Phenyleph-Shark Qbj-Kyyu-Hss (HEMORRHOIDAL) 0.25-3-12 % crea by RECTAL route twice daily. 52 g 1 ? No current facility-administered medications for this visit. ? ? ALLERGIES: Macadamia Nut Oil and Meloxicam ? PERSONAL HISTORY: SOCIAL HISTORY Social History ? Tobacco Use ? Smoking status: Never ? Smokeless tobacco: Never Vaping Use ? Vaping Use: Never used Substance Use Topics ? Alcohol use: Yes ? ? Comment: Rarely ? Drug use: No ? FAMILY HISTORY: FAMILY HISTORY FAMILY HISTORY Problem Relation Age of Onset ? No Known Problems Mother ? ? Cancer Father ? ? pancreatic and renal. ? No Known Problems Brother ? ? No Known Problems Maternal Grandmother ? ? Diabetes Maternal Grandfather ? ? Diabetes Paternal Grandfather ? ? No Known Problems Son ? ? Breast Cancer Maternal Aunt ? ? Cervical Cancer Paternal Aunt ? ? x2- and one cousin ? other (lymphomia) Other ? ? maternal cousin ? other (leukemia) Other ? ? cousin ? ? REVIEW OF SYMPTOMS: negative except as noted above- Denies CP, SOB, dizziness PHYSICAL EXAMINATION: ? VITALS: Blood pressure 118/70, weight 205 lb 9.6 oz (93.3 kg), last menstrual period 12/09/2022. ? GENERAL: The patient is well nourished, well hydrated in no acute distress. , The patient is oriented to time, place, and person. NECK: full range of motion LUNGS: Clear to auscultation bilaterally. no wheezes, rhonchi or rales HEART: Regular rate and rhythm, Normal heart sounds, and No murmurs or gallops ? IMPRESSION: 38yo female that desires permanent sterilization. ? PLAN: Laparoscopic bilateral salpingectomy ? Pt has been counseled on risks/benefits and alternatives of surgery including but not limited to anesthesia, bleeding, infection, injury to pelvic structures including bowel, bladder, ureters and vessels. Pt wishes to proceed with surgery at this time. Risk of regret reviewed. [facility] ? Type 2 DM well controlled- continue medications. Pre op labs and EKG ordered. ? Title 19 signed on 05/21/23 ? Pre and post op instructions reviewed today ? I have reviewed and updated past medical and surgical history, medications and allergies Natasha Condon MD Office Visit on 05/22/2023 Office Visit on 05/22/2023 Note shared with patient 06/11/23 0921 <Electronically signed by Natasha Condon MD> Cosigner Signature (if applicable): CC: M Dr. Natasha Villatoro; Dr. Gigi Carrillo DO~ Signed [facility] Work Phone: 1(652) 582-599003-21-2024 Miscellaneous Notes* Telephone Encounter - Elvis Up LPN - 06/05/2023 1:44 PM EDT Sydnie from [facility] calling asking for copy of patient latest lab results to be faxed to [phone].Printed and faxed as requested. documented in this encounterHolzer Health System03-20-2024 Miscellaneous Notes* Telephone Encounter - Yamile Washington LPN - 06/04/2023 9:38 AM EDT Images from the original note were not included. Prior authorization approved Payer: [facility] Approved medication: Mounjaro. Approval Details Authorization number: [id number] Authorized from April 07, 2023 to January 14, 2024 Electronic appeal: Not supported View History Medication Being Authorized tirzepatide (MOUNJARO) 10 mg/0.5 mL pen injector Inject 10 mg subcutaneously one time a week. Dispense: 2 mL Refills: 2 Start: 06/04/2023 End: 09/02/2023 Class: Normal Diagnoses: Uncontrolled type 2 diabetes mellitus with hyperglycemia (HCC) This order has been released to its destination. To be filled at: [id number] [place] [address] - [address] [facility] [phone] [id number] * Telephone Encounter - Yamile Washington LPN - 06/04/2023 9:00 AM EDT Electronic PA completed for mounjaro 10 mg documented in this encounterHolzer Health System03-20-2024 History of Present illness Narrative* Polly Grant APRN.[employer] - 06/04/2023 8:07 AM EDT Chief Complaint Patient presents with: discuss medication HPI Candelaria Grant is a 38 year old female who presents here today for Above Complaints. Candelaria is an established patient of Dr. Carrillo, and myself. Concerns today... DM -- Worried because blood sugars at home elevated. Has continuous emilia monitor BG in the morning fasting are starting to reach > 300 again. Last hGA1c on Friday was 6.4, prior hgA1c in February was 5.9. Fasting CMP on Friday showed BG of 212. Pt reports yeast infection recently (given diflucan RX which resolved symptoms completely) but onlygets yeast infections with blood sugar is out of control. Regimen: mounjaro 7.5 mg weekly and metformin 500 mg daily (does not tolerate any higher dosage of metformin d/t significant GI upset, we have tried numerous times). Weight -- Increasing since Mar. Was down to 197 lbs and now at 209 lbs. Admits to poor diet and craving sweets recently. 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 Crying a lot due to this. BP elevated in office today... Last 14 Encounter BP Readings: Date: BP: 06/04/2023 140/100 05/22/2023 118/70 05/21/2023 120/80 05/02/2023 142/94 04/25/2023 120/80 04/15/2023 147/85 04/01/2023 122/72 03/21/2023 163/100 02/27/2023 159/96 02/14/2023 120/88 01/09/2023 132/64 01/01/2023 152/102 12/28/2022 131/88 10/25/2022 130/80 Past medical history, appointments, medications, allergies reviewed. Previous Medical History PAST MEDICAL HISTORY Diagnosis Date Abnormal Pap smear of cervix ascus cannot rule out high grade Diabetes mellitus type 2 in obese Migraine headache Obesity Previous Surgical History PAST SURGICAL HISTORY Procedure Laterality Date SECTION HX 03/24/2013 CHOLECYSTECTOMY HX INSERTION OF IUD 2016 Mirena IUD removed 10/20/2020 KYLEENA IUD 10/20/2020 NEXPLANON INSERTION 05/10/2013 OSTECTOMY CALCANEUS SPUR W/WO PLNTAR FASCIAL RLS Left Dr. Jimenez REPAIR OF NASAL SEPTUM Family History FAMILY HISTORY Problem Relation Age of Onset No Known Problems Mother Cancer Father pancreatic and renal. No Known Problems Brother No Known Problems Maternal Grandmother Diabetes Maternal Grandfather Diabetes Paternal Grandfather No Known Problems Son Breast Cancer Maternal Aunt Cervical Cancer Paternal Aunt x2- and one cousin other (lymphomia) Other maternal cousin other (leukemia) Other cousin Patient Allergies ALLERGIES Allergen Reactions Macadamia Nut Oil Hives, Swelling, Shortness of Breath Meloxicam Intolerance Headache Current Medications Current Outpatient Medications on File Prior to Visit Medication Sig levonorgestrel (KYLEENA) 17.5 mcg/24 hrs (5 yrs) 19.5 mg IUD 1 Each by INTRAUTERINE route one time only. colestipol (COLESTID) 1 gram tablet Take 1 tablet by mouth once daily. For Diarrhea Post Gall Bladder Removal flash glucose sensor (FREESTYLE EMILIA 14 DAY SENSOR) kit Apply and use as directed. Dx: Uncontrolled type 2 diabetes without insulin. flash glucose scanning reader (FREESTYLE EMILIA 3 READER) 1 Each once daily. metFORMIN ER (GLUCOPHAGE XR) 500 mg 24 hr tablet Take 1 tablet by mouth daily with breakfast. tirzepatide (MOUNJARO) 7.5 mg/0.5 mL pen injector Inject 7.5 mg subcutaneously one time a week. escitalopram oxalate (LEXAPRO) 10 mg tablet Take 1 tablet by mouth once daily. Phenyleph-Shark Uao-Ftnc-Cgy (HEMORRHOIDAL) 0.25-3-12 % crea by RECTAL route twice daily. EPINEPHrine (EPIPEN) 0.3 mg/0.3 mL auto-injector Use for allergic reaction Lancets lancets Test blood sugar(s)2 times daily. Dx: uncontrolled type 2 DM insulin needles, DISPOSABLE, (BD INSULIN PEN NEEDLE UF) 31 gauge x 5/16" use once daily as directed blood sugar diagnostic (BLOOD GLUCOSE TEST) test strip Test blood sugar(s) 2 times daily. Dx: uncontrolled type 2 DM famotidine (PEPCID) 40 mg tablet Take 40 mg by mouth as needed. No current facility-administered medications on file prior to visit. Social History Social History Tobacco Use Smoking status: Never Smokeless tobacco: Never Vaping Use Vaping Use: Never used Substance Use Topics Alcohol use: Yes Comment: Rarely Drug use: No REVIEW OF SYSTEMS: as above Reviewed relevant PMHx, PSHx, Social Hx, current medications and allergies. Review of Symptoms REVIEW OF SYSTEMS See HPI. EXAM: BP 140/100 (BP Site: Left Arm, BP Position: Sitting, BP Cuff Size: Large Adult) Pulse 60 Resp 14 Wt 94.9 kg (209 lb 3.2 oz) LMP 12/09/2022 (Approximate) BMI 30.89 kg/m General Appearance: Well appearing, alert, in no acute distress, well-hydrated, well nourished.. Skin: Skin color, texture, turgor normal, no suspicious rashes or lesions. Head: Normocephalic, no masses, lesions, tenderness or abnormalities. Lungs: Lungs clear to auscultation. No wheezing, rhonchi, rales.. Heart: RRR without murmur, gallop, or rubs. No ectopy. Health Maintenance List Dilated Retinal Exam due on 03/17/2022 Influenza Vaccine(1) due on 09/14/2023 DTaP,Tdap,Td Vaccine(1 - Tdap) due on 10/26/2023 Pneumococcal Vaccine(2 of 2 - PCV) due on 01/10/2024 Covid-19 Vaccine(1 - 2022- season) due on 04/25/2024 Urine Albumin:Creatinine Ratio due on 10/23/2023 HbA1C due on 12/03/2023 Diabetic Foot Exam due on 04/25/2024 LDL Cholesterol due on 06/01/2024 Annual PCP Team Chronic Disease Visit due on 06/03/2024 Pap Testing due on 04/02/2027 HPV Testing due on 04/02/2027 Depression Assessment Completed Hepatitis C Screening Completed HIV Screening Completed HPV Vaccine Aged Out ASSESSMENT/PLAN: 1. Uncontrolled type 2 diabetes mellitus with hyperglycemia (HCC) - ICD9: 250.02, ICD10: E11.65 (primary diagnosis) - Worsening control - Continue current medications - Increase tirzepatide (Mounjaro) to 10 mg weekly - Blood glucose monitoring on a continuous glucose monitoring schedule - Counseled on healthy diet and regular exercise - Discussed need for and benefit of weight loss. BMI 30.89 kg/(m^2) - Follow up in 6 weeks as scheduled, sooner should any other issues arise. - TIRZEPATIDE 10 MG/0.5 ML SUBCUTANEOUS PEN INJECTOR 2. Anxiety and depression - ICD9: 300.00, 311, ICD10: F41.9, F32.A Discussed increasing Lexapro to 20 mg daily due to recent stressors. Pt declined but will reach outif she changes her mind. 3. Elevated BP without diagnosis of hypertension - ICD9: 796.2, ICD10: R03.0 - Encouraged dietary sodium restriction/DASH diet - Recommended regular aerobic exercise. - Recommend home blood pressure monitoring, to bring results in on next visit - Encouraged avoidance of excessive alcohol intake - Discussed need and benefit for weight loss. - Follow up in 1.5 month for BP recheck, as scheduled. - Goal of BP <130/80 4. Class 1 obesity with body mass index (BMI) of 30.0 to 30.9 in adult, unspecified obesity type, unspecified whether serious comorbidity present - ICD9: 278.00, V85.30, ICD10: E66.9, Z68.30 Weight increasing - Behavioral intervention, - Pharmacological intervention, - Eat well program, and - Increase Tirzepatide (Mounjaro) RTO in 6 weeks as scheduled, sooner if needed. Prescription instructions reviewed with patient as applicable. Potential red flag symptoms discussed with the patient. Reviewed appropriate action plan to take if red flag symptoms occur. Patient agreeable to treatment plan. Polly Quintero APRN.[facility] [id number] [place] [address] documented in this encounterHolzer Health System03-07-2024 History and physical note * Natasha Meadows MD - 05/22/2023 10:42 AM EST Pre-Op History and Physical HPI: The patient is a 38 year old female presenting for pre-operative visit. She is scheduled for laparoscopic bilateral salpingectomy, for desires sterilization on Date to be determined . Procedure discussed along with risks, benefits and complications. Other alternatives discussed for management. Consent form signed? Yes. PAST MEDICAL HISTORY Diagnosis Date Abnormal Pap smear of cervix ascus cannot rule out high grade Diabetes mellitus type 2 in obese Migraine headache Obesity PAST SURGICAL HISTORY Procedure Laterality Date SECTION HX 03/24/2013 CHOLECYSTECTOMY HX INSERTION OF IUD 2016 Mirena IUD removed 10/20/2020 KYLEENA IUD 10/20/2020 NEXPLANON INSERTION 05/10/2013 OSTECTOMY CALCANEUS SPUR W/WO PLNTAR FASCIAL RLS Left Dr. Jimenez REPAIR OF NASAL SEPTUM Current Outpatient Medications Medication Sig Dispense Refill levonorgestrel (KYLEENA) 17.5 mcg/24 hrs (5 yrs) 19.5 mg IUD 1 Each by INTRAUTERINE route one time only. colestipol (COLESTID) 1 gram tablet Take 1 tablet by mouth once daily. For Diarrhea Post Gall Bladder Removal 90 tablet 1 flash glucose sensor (FREESTYLE EMILIA 14 DAY SENSOR) kit Apply and use as directed. Dx: Uncontrolled type 2 diabetes without insulin. 1 Kit 3 flash glucose scanning reader (FREESTYLE EMILIA 3 READER) 1 Each once daily. 1 Each 5 metFORMIN ER (GLUCOPHAGE XR) 500 mg 24 hr tablet Take 1 tablet by mouth daily with breakfast. 90 tablet 2 tirzepatide (MOUNJARO) 7.5 mg/0.5 mL pen injector Inject 7.5 mg subcutaneously one time a week. 2 mL 2 escitalopram oxalate (LEXAPRO) 10 mg tablet Take 1 tablet by mouth once daily. 30 tablet 5 EPINEPHrine (EPIPEN) 0.3 mg/0.3 mL auto-injector Use for allergic reaction 2 Each 1 Lancets lancets Test blood sugar(s)2 times daily. Dx: uncontrolled type 2 DM 100 Each 11 insulin needles, DISPOSABLE, (BD INSULIN PEN NEEDLE UF) 31 gauge x 5/16" use once daily as Each 1 blood sugar diagnostic (BLOOD GLUCOSE TEST) test strip Test blood sugar(s) 2 times daily. Dx: uncontrolled type 2 DM 50 Strip 11 famotidine (PEPCID) 40 mg tablet Take 40 mg by mouth as needed. 0 Phenyleph-Shark Ohd-Mjuc-Rex (HEMORRHOIDAL) 0.25-3-12 % crea by RECTAL route twice daily. 52 g 1 No current facility-administered medications for this visit. ALLERGIES: Macadamia Nut Oil and Meloxicam PERSONAL HISTORY: Social History Tobacco Use Smoking status: Never Smokeless tobacco: Never Vaping Use Vaping Use: Never used Substance Use Topics Alcohol use: Yes Comment: Rarely Drug use: No FAMILY HISTORY: FAMILY HISTORY Problem Relation Age of Onset No Known Problems Mother Cancer Father pancreatic and renal. No Known Problems Brother No Known Problems Maternal Grandmother Diabetes Maternal Grandfather Diabetes Paternal Grandfather No Known Problems Son Breast Cancer Maternal Aunt Cervical Cancer Paternal Aunt x2- and one cousin other (lymphomia) Other maternal cousin other (leukemia) Other cousin REVIEW OF SYMPTOMS: negative except as noted above- Denies CP, SOB, dizziness PHYSICAL EXAMINATION: VITALS: Blood pressure 118/70, weight 205 lb 9.6 oz (93.3 kg), last menstrual period 12/09/2022. GENERAL: The patient is well nourished, well hydrated in no acute distress. , The patient is oriented to time, place, and person. NECK: full range of motion LUNGS: Clear to auscultation bilaterally. no wheezes, rhonchi or rales HEART: Regular rate and rhythm, Normal heart sounds, and No murmurs or gallops IMPRESSION: 38yo female that desires permanent sterilization. PLAN: Laparoscopic bilateral salpingectomy Pt has been counseled on risks/benefits and alternatives of surgery including but not limited to anesthesia, bleeding, infection, injury to pelvic structures including bowel, bladder, ureters and vessels. Pt wishes to proceed with surgery at this time. Risk of regret reviewed. Plan to leave [facility]. Type 2 DM well controlled- continue medications. Pre op labs and EKG ordered. Title 19 signed on 05/21/23 Pre and post op instructions reviewed today I have reviewed and updated past medical and surgical history, medications and allergies Natasha Condon MD documented in this encounterHolzer Health System03-07-2024 History of Present illness Narrative* Natasha Meadows MD - 05/22/2023 10:11 AM EST Candelaria Grant is a 38 year old female who presents for discussion regarding sterilization request. Patient is interested in permanent sterilization. She reports she has a Kyleena but would like options for permanent sterilization. She is happy with her Kyleena for menstrual regulation. She would like to keep the Kyleena at this time. Patient does have a history of type 2 diabetes is well-controlled with Mounjaro and metformin recent hemoglobin A1c is 5.9. 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 PAST MEDICAL HISTORY Diagnosis Date Abnormal Pap smear of cervix ascus cannot rule out high grade Diabetes mellitus type 2 in obese Migraine headache Obesity PAST SURGICAL HISTORY Procedure Laterality Date SECTION HX 03/24/2013 CHOLECYSTECTOMY HX INSERTION OF IUD 2016 Mirena IUD removed 10/20/2020 KYLEENA IUD 10/20/2020 NEXPLANON INSERTION 05/10/2013 OSTECTOMY CALCANEUS SPUR W/WO PLNTAR FASCIAL RLS Left Dr. Jimenez REPAIR OF NASAL SEPTUM FAMILY HISTORY Problem Relation Age of Onset No Known Problems Mother Cancer Father pancreatic and renal. No Known Problems Brother No Known Problems Maternal Grandmother Diabetes Maternal Grandfather Diabetes Paternal Grandfather No Known Problems Son Breast Cancer Maternal Aunt Cervical Cancer Paternal Aunt x2- and one cousin other (lymphomia) Other maternal cousin other (leukemia) Other cousin Social History Tobacco Use Smoking status: Never Smokeless tobacco: Never Vaping Use Vaping Use: Never used Substance Use Topics Alcohol use: Yes Comment: Rarely Drug use: No Current Outpatient Medications Medication Sig levonorgestrel (KYLEENA) 17.5 mcg/24 hrs (5 yrs) 19.5 mg IUD 1 Each by INTRAUTERINE route one time only. colestipol (COLESTID) 1 gram tablet Take 1 tablet by mouth once daily. For Diarrhea Post Gall Bladder Removal flash glucose sensor (FREESTYLE EMILIA 14 DAY SENSOR) kit Apply and use as directed. Dx: Uncontrolled type 2 diabetes without insulin. flash glucose scanning reader (FREESTYLE EMILIA 3 READER) 1 Each once daily. metFORMIN ER (GLUCOPHAGE XR) 500 mg 24 hr tablet Take 1 tablet by mouth daily with breakfast. tirzepatide (MOUNJARO) 7.5 mg/0.5 mL pen injector Inject 7.5 mg subcutaneously one time a week. escitalopram oxalate (LEXAPRO) 10 mg tablet Take 1 tablet by mouth once daily. EPINEPHrine (EPIPEN) 0.3 mg/0.3 mL auto-injector Use for allergic reaction Lancets lancets Test blood sugar(s)2 times daily. Dx: uncontrolled type 2 DM insulin needles, DISPOSABLE, (BD INSULIN PEN NEEDLE UF) 31 gauge x 5/16" use once daily as directed blood sugar diagnostic (BLOOD GLUCOSE TEST) test strip Test blood sugar(s) 2 times daily. Dx: uncontrolled type 2 DM famotidine (PEPCID) 40 mg tablet Take 40 mg by mouth as needed. Phenyleph-Shark Wtz-Vtcn-Evb (HEMORRHOIDAL) 0.25-3-12 % crea by RECTAL route twice daily. No current facility-administered medications for this visit. Allergies As of Date: 05/22/2023 Allergen Noted Reaction MACADAMIA NUT OIL 04/08/2014 Hives, Swelling, and Shortness of Breath MELOXICAM 08/30/2015 Intolerance Fully Assessed 05/22/2023 REVIEW OF SYSTEMS Abdomen: no pain . . Expanded ROS: Denies chest pain or shortness of breath. Allergies and current medication updated:Yes EXAM: BP 118/70 Wt 205 lb 9.6 oz (93.3kg) LMP 12/09/2022 GENERAL: pleasant, female in no apparent distress HEENT: Normocephalic, atraumatic, and mucus membranes moist NECK: Supple and full range of motion DERMATOLOGY: Normal, without lesions, non-icteric, and non-hirsute NEURO: alert and oriented x3,exam grossly non-focal EXTREMITIES: normal ASSESSMENT AND PLAN: Encounter Diagnosis ICD-10-CM 1. Sterilization consult Z30.09 2. Discussed laparoscopic salpingectomy in detail with the patient. Discussed risk benefits and alternatives. Discussed keeping her Kyleena as patient reports helps with menstrual regulation. Discussed that uterine manipulator can sometimes dislodge Kyleena and at that point I can reinsert if needed.. After discussion patient would like to proceed with scheduling laparoscopic salpingectomy. Title19 was previously signed on 05/20/22 3. Discussed risk of regret. 4. Preop done today- labs to [facility] ordered including EKG, bmp, cbc prior to surgery. Well controlled DM. Medical Decision Making: Problems: Low: Stable chronic illness Data: Unique test result(s) reviewed: 1 Unique test(s) ordered: 3+ Risk: Moderate: Decision on minor surgery w/ risk factors Medical Decision Making Level: 4 - Moderate Natasha Villatoro MD documented in this encounterHolzer Health System03-06-2024 History of Present illness Narrative* Carolann Menon APRN.[employer] - 05/21/2023 8:04 AM EST Candelaria Grant is a 38 year old female who presents for problem visit of tubal ligation discussion. HPI: Candelaria is interested in a salpingectomy. She does not want to have any more children. She is type 2 diabetic, most recent HGBA1C was 5.9. She is due for an annual exam, but declines an exam today. She currently has a Kyleena IUD. 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 PAST MEDICAL HISTORY Diagnosis Date Abnormal Pap smear of cervix ascus cannot rule out high grade Diabetes mellitus type 2 in obese Migraine headache Obesity PAST SURGICAL HISTORY Procedure Laterality Date SECTION HX 03/24/2013 CHOLECYSTECTOMY HX INSERTION OF IUD 2016 Mirena IUD removed 10/20/2020 KYLEENA IUD 10/20/2020 NEXPLANON INSERTION 05/10/2013 OSTECTOMY CALCANEUS SPUR W/WO PLNTAR FASCIAL RLS Left Dr. Jimenez REPAIR OF NASAL SEPTUM FAMILY HISTORY Problem Relation Age of Onset No Known Problems Mother Cancer Father pancreatic and renal. No Known Problems Brother No Known Problems Maternal Grandmother Diabetes Maternal Grandfather Diabetes Paternal Grandfather No Known Problems Son Breast Cancer Maternal Aunt Cervical Cancer Paternal Aunt x2- and one cousin other (lymphomia) Other maternal cousin other (leukemia) Other cousin Social History Tobacco Use Smoking status: Never Smokeless tobacco: Never Vaping Use Vaping Use: Never used Substance Use Topics Alcohol use: Yes Comment: Rarely Drug use: No Current Outpatient Medications Medication Sig levonorgestrel (KYLEENA) 17.5 mcg/24 hrs (5 yrs) 19.5 mg IUD 1 Each by INTRAUTERINE route one time only. colestipol (COLESTID) 1 gram tablet Take 1 tablet by mouth once daily. For Diarrhea Post Gall Bladder Removal flash glucose sensor (FREESTYLE EMILIA 14 DAY SENSOR) kit Apply and use as directed. Dx: Uncontrolled type 2 diabetes without insulin. flash glucose scanning reader (FREESTYLE EMILIA 3 READER) 1 Each once daily. metFORMIN ER (GLUCOPHAGE XR) 500 mg 24 hr tablet Take 1 tablet by mouth daily with breakfast. tirzepatide (MOUNJARO) 7.5 mg/0.5 mL pen injector Inject 7.5 mg subcutaneously one time a week. escitalopram oxalate (LEXAPRO) 10 mg tablet Take 1 tablet by mouth once daily. EPINEPHrine (EPIPEN) 0.3 mg/0.3 mL auto-injector Use for allergic reaction Lancets lancets Test blood sugar(s)2 times daily. Dx: uncontrolled type 2 DM insulin needles, DISPOSABLE, (BD INSULIN PEN NEEDLE UF) 31 gauge x 5/16" use once daily as directed blood sugar diagnostic (BLOOD GLUCOSE TEST) test strip Test blood sugar(s) 2 times daily. Dx: uncontrolled type 2 DM famotidine (PEPCID) 40 mg tablet Take 40 mg by mouth as needed. Phenyleph-Shark Eom-Revq-Joe (HEMORRHOIDAL) 0.25-3-12 % crea by RECTAL route twice daily. No current facility-administered medications for this visit. Allergies As of Date: 05/21/2023 Allergen Noted Reaction MACADAMIA NUT OIL 04/08/2014 Hives, Swelling, and Shortness of Breath MELOXICAM 08/30/2015 Intolerance Fully Assessed 05/21/2023 REVIEW OF SYSTEMS Abdomen: No bloating, early satiety, indigestion, or increased flatulence. No abdominal pain, nausea, vomiting, diarrhea, or constipation. Bladder: No dysuria, gross hematuria, urinary frequency, urinary urgency, or incontinence. Breast: No breast lumps, nipple d/c, overlying skin changes, redness or skin retraction. Expanded ROS: N/A Allergies and current medication updated:Yes EXAM: BP 120/80 Wt 203 lb (92.1kg) LMP 12/09/2022 GENERAL: pleasant, female in no apparent distress HEENT: Normocephalic, atraumatic, mucus membranes moist, and no lesions CHEST: Normal inspiratory effort NEURO: alert and oriented x3,exam grossly non-focal EXTREMITIES: normal ASSESSMENT AND PLAN: 1. Encounter for sterilization - ICD9: V25.2, ICD10: Z30.2 - Discussed r/b - Discussed permanent procedure, irreversible - Title 19 signed - To schedule follow up visit with physician Carolann Menon APRN.CNP Medical Decision Making: Problems: Minimal: Self-limited or minor problem Risk: Moderate: Decision on minor surgery w/ risk factors Medical Decision Making Level: 2 - Straightforward documented in this encounterHolzer Health System03-05-2024 History of Present illness Narrative* Carolina Tello RT(Gerhard) - 05/20/2023 8:00 AM EST Radiology Service Progress Note PATIENT NAME: Candelaria Grant DATE OF SERVICE: May 20, 2023 TIME: 8:02 AM PATIENT IDENTITY VERIFICATION COMPLETED USING TWO (2) IDENTIFIERS: Name and Date of confirmedby patient verbally. FALL SCREENING: Has the patient had 2 falls in the last year or 1 fall with injury or currently using an Ambulatory Assistive Device (Walker, Cane, Wheelchair, Crutches, etc.)? No PATIENT GENDER DATA: Female. status: : No status: NO. PATIENT RELEVANT IMPLANT DATA REVIEWED: Yes PATIENT PRESENTS WITH AN IMPLANTABLE OR ATTACHED MOBILE APPLICATION ARCHITECT: No RADIOLOGY DEPARTMENT: MR; Exam(s) Completed: Lower MSK: Knee, left PERIPHERAL IV DATA: Not applicable SIGNED BY: RT Arminda(Gerhard) May 20, 2023 8:02 AM documented in this encounterHolzer Health System03-04-2024 Miscellaneous Notes* Telephone Encounter - Goldie Milton LPN - 05/19/2023 8:45 AM EST Patient has been identified by name and date of : Yes, Provider Dr. Carrillo Date 05/18/23 Time 8:45 Patient phones for refill(s): Requested Prescriptions Pending Prescriptions Disp Refills colestipol (COLESTID) 1 gram tablet 90 tablet 1 Sig: Take 1 tablet by mouth once daily. For Diarrhea Post Gall Bladder Removal Date of last office visit in primary care: 04/25/2023 Date of next office visit in primary care: 07/25/2023 Please advise. Thank you. Goldie Milton LPN. documented in this encounterHolzer Health System02-16-2024 History of Present illness Narrative* Farrukh Zurita PT - 05/02/2023 12:17 PM EST Episode Visit Count: 1 Therapist That Will Accept/Oversee The Plan Of Care: Farrukh Zurita PT Start of Care Date: 05/02/23 Onset Date: 04/01/23 Plan of Care Certification Date: 05/02/23 Next Certification Due Date: 06/13/23 Patient Identified by Name and Date of : Yes [facility] PHYSICAL THERAPY EVALUATION PLAN OF CARE: Assessment: Candelaria Grant presents with chief complaint of L knee pain that interferes with working, walking, running, stair negotiation, standing. She presents with impairments in ADL's, gait, independence in exercise, overall function, range of motion, soft tissue healing, strength, symptom management, and tissue tenderness. PROMIS (Patient-Reported Outcomes Measurement Information System) scores were reviewed and physical function domain identified as a rehabilitation concern. Prognosis for therapy is Good due to: current objective clinical presentation, good overall health status, acuteness of condition, good support system/ coping skills, within-session changes. She will benefit from skilled therapy services to meet the goals established for this plan of care as noted below. Goals for Episode of Care: created on 05/02/23 through 06/13/23 [place] in home exercise program. Patient will decrease pain to 0/10 at rest and with functional activities to allow patient to improve ambulation, transfers, and standing tolerance for ADLs. Patient will increase active ROM of L knee to WFL, symmetrical and pain-free to allow pt to to improve performance of ADLs. Perform working, walking, running, stairs and standing without pain. Increased strength of L knee/LE to 5/5 and WFL for improved standing, walking and working tolerance Normal gait. Reciprocal stair negotiation. Patient Goals: eliminate the pain and regain prior functional status Planned Interventions, Frequency, and Duration: Current Frequency: 2x/week Duration: 6 weeks Total Number of Visits Planned: 12 Planned Treatment Interventions: Therapeutic exercise (70637), Neuromuscular re- education (42244), Manual therapy (24682), Therapeutic activities (62099), Self- shelter management (36516), Gait Training (19233), Patient/Family/Caregiver Education, Body Mechanics Training PLAN FOR NEXT VISIT: Review, correct and progress HEP to tolerance. Continue with gentle therex that does not increase pain and addresses, pain, ROM, strength and function. Gait training prn. Patient demonstrates good understanding of plan of care and treatment. The above goals and plan of care were discussed and agreed upon by patient/family. SUBJECTIVE: Pt reports injuring her L knee one month ago when she slipped on porch while taking her dog out. She reports that this is the third time she has injured her L knee. She reports twisting her knee at onset but that she did not fall all the way to the ground. 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 Hobbies / Interests: Likes to be active with 10 year old son Home Environment Patient Lives With: Family (10 year old son only) Home Type: Ranch Entry To Home: Stairs, With Rail Number Of Stairs Into Home: 4 Intake Information: Prescription present Previous Treatment: None Pain: Pain Pain Level: 7 (7/10 currently) Pain Location: Knee - Left Description: Aching, Sharp (constant ache and intermittently sharp) Frequency: Continuous Detailed Pain Score: Yes Worst Pain Level: 10 Average Pain Level: 7 Best Pain Level: 4 Post Treatment Pain Post Treatment Pain Level: No Change PROMIS Scales Higher is Better 05/02/2023 Phys Func - Score 40 (mild dysfunction) Phys Func - Percentile 16% Self-Eff Symptom - Score 41 (Average) Self-Eff Symptom - Percentile 18% T-scores: mean of general population = 50. 5 points is clinically meaningfully difference Percentiles provide an indication of how the patient's score ranks in relation to the general population. Higher percentile rankings indicate better function/quality of life. 50th percentile is the average of the general population and indicates half of respondents had a worse score. OBJECTIVE MEASURES WITH LEVEL OF FUNCTION: Knee Observations L Knee Palpation Tenderness: Medial joint line, Medial Hamstring, Lateral joint line, Lateral Hamstring (medial side of L knee is much more painful, No tenderness to palpation at L greater trochanteror L piriformis) Sensation - Lower Extremity LE Light Touch Sensation: Grossly Intact LE AROM R LE AROM: supine L LE AROM: supine R Knee Extension: 1 Degrees R Knee Flexion: 153 Degrees L Knee Extension: -3 Degrees (limited by pain) L Knee Flexion: 140 Degrees (limited by pain) LE Strength R Knee Flexion: 5/5 R Ankle Plantar Flexion: 5/5 L Knee Extension (L3): 4-/5 (painful) L Knee Flexion: 4+/5 (painful) Special Tests - Hip and Spine Hip and Spine Special Tests: SLR Test SLR Test: Right Negative, Left Negative Special Tests - Knee Knee Special Tests: Jesse, Kyle's Test, Valgus stress at 0 degrees, Varus stress at 0 degrees Jesse: Right Negative, Left Negative Kyle's Test: Right Negative, Left Positive (L is painful with both medial and lateral bias) Valgus stress at 0 degrees: Right Negative, Left Negative Varus stress at 0 degrees: Right Negative, Left Negative Gait Gait Observation: moderately antalgic Education: Education Learning Preferences: Demonstration, Explanation, Performance, Printed Materials Barriers: None Learning/educational needs: Plan of Care, Home exercise program, Procedure / Surgery, Body Mechanics Education Provided: Yes, see treatment interventions for education provided Education Provided To: Patient Education Mode/Type: Demonstration, Explanation/Discussion, Literature/Printed Materials, Performance Response to Education/Teach Back: States/Identifies, Return Demonstration, Requires Review/Additional Education TREATMENT: PT Treatment Interventions: Therapeutic Exercise Evaluation Therapeutic Exercise: 1: Pt was educated extensively on the anatomy of her L knee, findings of exam, likely etiology of symptoms and rationale for proposed treatment plan. She was advised to stop any exercise that causes increased pain. 2: *supine quad sets to facilitate L knee ext 2 second holds 2x10 3: *supine L heel slides to facilitate flexion AROM 2x10 Skilled Intervention: Patient was educated in proper exercise technique and purpose for exercises. Reviewed and educated patient on additions/changes for home exercise program as above (*). Skilled judgment was used in selection of appropriate interventions. Provided written instruction for home exercise program to facilitate proper performance and compliance. Correct performance of therapeutic exercises was facilitated with verbal, visual, and tactile cuing. Patient education as noted. Billing * Evaluation Moderate Complexity: 1 Unit Therapeutic Exercise Treatment Minutes: 15 Skilled Treatment Time Minutes (timed and untimed codes): 45 Total Session Time (minutes): 45 Session Start Time : 934 Session Stop Time : 1020 Farrukh Zurita PT * Farrukh Zurita PT - 05/02/2023 10:13 AM EST Program_ID:[id number] Access Code: [email or web address] URL: [email or web address] Date: 05-02-2023 Prepared By: Farrukh Zurita Program Notes Exercises - Supine Heel Slide - 3 x daily - 7 x weekly - 2 sets - 10 reps - Supine Quadricep Sets - 3 x daily - 7 x weekly - 2 sets - 10 reps documented in this encounterHolzer Health System02-12-2024 Miscellaneous Notes* Telephone Encounter - Macy Espinal Ma - 04/28/2023 9:16 AM EST Pt notified of below via [employer]. Macy Espinal Ma * Telephone Encounter - Polly Grant APRN.CNP - 04/28/2023 8:46 AM EST Rx sent. Let us know if no improvement. The following approved medication requests have been transmitted electronically. Requested Prescriptions Signed Prescriptions Disp Refills fluconazole (DIFLUCAN) 150 mg tablet 2 tablet 0 Sig: Take 1 tablet by mouth one time only for 1 dose. Repeat in 3 days as needed. Polly Grant APRN.KEEGAN * Telephone Encounter - Macy Espinal Ma - 04/28/2023 8:44 AM EST See pt message and advise. Do you want pt to be seen or okay with sending in Rx? Update pt via [employer]. Macy Espinal Ma documented in this encounterHolzer Health System02-09-2024 History of Present illness Narrative* Polly Grant APRN.KEEGAN - 04/25/2023 12:40 PM EST Chief Complaint Patient presents with: Physical HPI Candelaria Grant is a 38 year old female who presents here today for Above Complaints. Candelaria is an established patient of Dr. Carrillo, and myself. Concerns today... DM--- Patient reports she is feeling well overall in regards to diabetes. Pt reports feeling so much better than 1 year ago when BG were all over the place. Starting on Mounjaro helped her a lot. Patient's last HgA1C was 5.9 in February. Current regimen: metformin 500 mg daily, and mounjaro 7.5 mg weekly. Tolerating well: Yes, cannot increase metformin due to significant GI upset. Med compliance: Yes Checking sugars: continuous monitorig with Emilia. Reports 2 high alerts since February. Signs of hypoglycemia?: none per pt Denies polyuria, polydipsia, numbness, tingling or pain in extremities, new or unusual visual symptoms, unintended weight changes, lightheadedness/dizziness, bowel changes/loose stools, chest pain ordyspnea Mood -- Lexapro 10 mg daily. Mood is stable. Pt feels in a very good place. Following with ortho for possible L knee meniscal tear, has MRI scheduled for a few weeks from now. Past medical history, appointments, medications, allergies reviewed. Previous Medical History PAST MEDICAL HISTORY Diagnosis Date Abnormal Pap smear of cervix ascus cannot rule out high grade Diabetes mellitus type 2 in obese (HCC) (HCC) Migraine headache Obesity Previous Surgical History PAST SURGICAL HISTORY Procedure Laterality Date SECTION HX 03/24/2013 CHOLECYSTECTOMY HX INSERTION OF IUD 2016 Mirena IUD removed 10/20/2020 KYLEENA IUD 10/20/2020 NEXPLANON INSERTION 05/10/2013 OSTECTOMY CALCANEUS SPUR W/WO PLNTAR FASCIAL RLS Left Dr. Jimenez REPAIR OF NASAL SEPTUM Family History FAMILY HISTORY Problem Relation Age of Onset No Known Problems Mother Cancer Father pancreatic and renal. No Known Problems Brother No Known Problems Maternal Grandmother Diabetes Maternal Grandfather Diabetes Paternal Grandfather No Known Problems Son Breast Cancer Maternal Aunt Cervical Cancer Paternal Aunt x2- and one cousin other (lymphomia) Other maternal cousin other (leukemia) Other cousin Patient Allergies ALLERGIES Allergen Reactions Macadamia Nut Oil Hives, Swelling, Shortness of Breath Meloxicam Intolerance Headache Current Medications Current Outpatient Medications on File Prior to Visit Medication Sig tirzepatide (MOUNJARO) 7.5 mg/0.5 mL pen injector Inject 7.5 mg subcutaneously one time a week. escitalopram oxalate (LEXAPRO) 10 mg tablet Take 1 tablet by mouth once daily. flash glucose scanning reader (FREESTYLE EMILIA 14 DAY READER) use as directed. Dx: Uncontrolled type 2 diabetes without insulin. flash glucose sensor (FREESTYLE EMILIA 14 DAY SENSOR) kit Apply and use as directed. Dx: Uncontrolled type 2 diabetes without insulin. colestipol (COLESTID) 1 gram tablet Take 1 tablet by mouth once daily. For Diarrhea Post Gall Bladder Removal metFORMIN ER (GLUCOPHAGE XR) 500 mg 24 hr tablet take 2 tablets by mouth twice a day with meals Phenyleph-Shark Bha-Bwoa-Xnl (HEMORRHOIDAL) 0.25-3-12 % crea by RECTAL route twice daily. EPINEPHrine (EPIPEN) 0.3 mg/0.3 mL auto-injector Use for allergic reaction Lancets lancets Test blood sugar(s)2 times daily. Dx: uncontrolled type 2 DM insulin needles, DISPOSABLE, (BD INSULIN PEN NEEDLE UF) 31 gauge x 5/16" use once daily as directed blood sugar diagnostic (BLOOD GLUCOSE TEST) test strip Test blood sugar(s) 2 times daily. Dx: uncontrolled type 2 DM famotidine (PEPCID) 40 mg tablet Take 40 mg by mouth as needed. No current facility-administered medications on file prior to visit. Social History Social History Tobacco Use Smoking status: Never Smokeless tobacco: Never Vaping Use Vaping Use: Never used Substance Use Topics Alcohol use: Yes Comment: Rarely Drug use: No REVIEW OF SYSTEMS: as above Reviewed relevant PMHx, PSHx, Social Hx, current medications and allergies. Review of Symptoms REVIEW OF SYSTEMS See HPI. EXAM: BP 120/80 (BP Site: Left Arm, BP Position: Sitting, BP Cuff Size: Large Adult) Pulse 64 Resp 14 Wt 91.6 kg (202 lb) LMP 12/09/2022 (Approximate) BMI 29.83 kg/m General Appearance: Well appearing, alert, in no acute distress, well-hydrated, well nourished.. Skin: Skin color, texture, turgor normal, no suspicious rashes or lesions. Head: Normocephalic, no masses, lesions, tenderness or abnormalities. Lungs: Lungs clear to auscultation. No wheezing, rhonchi, rales.. Heart: RRR without murmur, gallop, or rubs. No ectopy. Abdomen: Normal abdominal exam, Abdomen soft, non-tender. Bowel sounds normal. No masses, organomegaly. Extremities: No deformities, edema, skin discoloration, clubbing or cyanosis. Good capillary refill. . Musculoskeletal: No joint swelling, deformity, or tenderness. Neurologic: Gait normal. Reflexes normal and symmetric. Sensation grossly intact.. Health Maintenance List Covid-19 Vaccine(1) Never done Dilated Retinal Exam due on 03/17/2022 Diabetic Foot Exam due on 02/13/2023 Depression Assessment due on 03/17/2023 Influenza Vaccine(1) due on 09/14/2023 DTaP,Tdap,Td Vaccine(1 - Tdap) due on 10/26/2023 Pneumococcal Vaccine(2 of 2 - PCV) due on 01/10/2024 HbA1C due on 09/06/2023 Urine Albumin:Creatinine Ratio due on 10/23/2023 LDL Cholesterol due on 10/23/2023 Annual PCP Team Chronic Disease Visit due on 04/15/2024 Pap Testing due on 04/02/2027 HPV Testing due on 04/02/2027 Hepatitis C Screening Completed HIV Screening Completed HPV Vaccine Aged Out ASSESSMENT/PLAN: 1. Anxiety and depression - ICD9: 300.00, 311, ICD10: F41.9, F32.A (primary diagnosis) Stable. Well controlled. Continue on current regimen of Lexapro. - DEPRESSION SCREENING/ASSESSMENT 2. Uncontrolled type 2 diabetes mellitus with hyperglycemia (HCC) - ICD9: 250.02, ICD10: E11.65 - Controlled - Continue current medications - due for lab work in 1 month, ordered today. - Blood glucose monitoring on a continuous glucose monitoring schedule - Counseled on healthy diet and regular exercise - Follow up in 3 months, sooner should any other issues arise. - FREESTYLE EMILIA 14 DAY SENSOR KIT - FREESTYLE EMILIA 3 READER - METFORMIN ER 500 MG TABLET,EXTENDED RELEASE 24 HR - HGB A1C - COMP METABOLIC PANEL - CBC + DIFF 3. Wellness examination - ICD9: V70.0, ICD10: Z00.00 - Counseled on healthy diet and regular exercise - Calcium intake with supplements or by diet of 1000 mg/day for under 50, 1200- 1500 mg/day for 50+ - Follow up for annual exam in one year RTO in 3 months, sooner if needed. Prescription instructions reviewed with patient as applicable. Potential red flag symptoms discussed with the patient. Reviewed appropriate action plan to take if red flag symptoms occur. Patient agreeable to treatment plan. Polly Quintero APRN.[employer] [address] [place] [address] documented in this encounterHolzer Health System02-09-2024 History of Present illness Narrative* Mariluz Martinez Ma - 04/25/2023 11:19 AM EST PT ASSESSMENT - CASTING ROOM [facility] presents for Application of brace. Applied large wrap around hinged knee brace to Left knee. Patient electronically signed Steven EVANS. Patient has been instructed in Care and proper application of brace. Mariluz Martinez Ma * Venkat Scruggs V, DO - 04/25/2023 11:18 AM EST Images from the original note were not included. SERVICE DATE: April 25, 2023 PCP: Gigi Carrillo DO Subjective Patient ID: Candelaria is a 38 year old female. Chief Complaint: Patient presents with: Left knee pain REF: J. Eduar x-ray: 04/15/2023 PAIN EVALUATION 04/25/2023 1037 Pain Level: 8 Pain Location: Knee-Left Description: Sharp;Aching Duration Amount of Time: -- few weeks ago Frequency: Continuous Intervention/Comfort measure: Cold;Heat;Massage HPI 38 y/o F- acute left knee injury after fall at home. Patient states history of left medial meniscusinjury previously, no definitive treatment. He states that she has been having problems for several years with flareups, clicking, knee giving out and swelling. Review of Systems ACTIVE PROBLEM LIST History of Gestational Diabetes Depressed Mood Family History of Ovarian Cancer Bmi 38.0-38.9,Adult Migraine Headache Functional Diarrhea Uncontrolled Type 2 Diabetes Mellitus Without Complication, Without Long-Term Current Use of Insulin Rectal Bleeding Luq Abdominal Pain Altered Bowel Habits TMJ Dysfunction Uncontrolled Type 2 Diabetes Mellitus With Hyperglycemia (Hcc) Hyperlipidemia Ldl Goal <100 TMJ Tenderness, Right Abnormal Pap Smear of Cervix PAST MEDICAL HISTORY Diagnosis Date Abnormal Pap smear of cervix ascus cannot rule out high grade Diabetes mellitus type 2 in obese (HCC) (HCC) Migraine headache Obesity PAST SURGICAL HISTORY Procedure Laterality Date SECTION HX 03/24/2013 CHOLECYSTECTOMY HX INSERTION OF IUD 2017 Mirena IUD removed 10/20/2020 KYLEENA IUD 10/20/2020 NEXPLANON INSERTION 05/10/2013 OSTECTOMY CALCANEUS SPUR W/WO PLNTAR FASCIAL RLS Left Dr. Jimenez REPAIR OF NASAL SEPTUM FAMILY HISTORY Problem Relation Age of Onset No Known Problems Mother Cancer Father pancreatic and renal. No Known Problems Brother No Known Problems Maternal Grandmother Diabetes Maternal Grandfather Diabetes Paternal Grandfather No Known Problems Son Breast Cancer Maternal Aunt Cervical Cancer Paternal Aunt x2- and one cousin other (lymphomia) Other maternal cousin other (leukemia) Other cousin Social History Tobacco Use Smoking status: Never Smokeless tobacco: Never Vaping Use Vaping Use: Never used Substance Use Topics Alcohol use: Yes Comment: Rarely Drug use: No ALLERGIES Allergen Reactions Macadamia Nut Oil Hives, Swelling, Shortness of Breath Meloxicam Intolerance Headache MEDICATIONS: tirzepatide (MOUNJARO) 7.5 mg/0.5 mL pen injector Inject 7.5 mg subcutaneously one time a week. escitalopram oxalate (LEXAPRO) 10 mg tablet Take 1 tablet by mouth once daily. colestipol (COLESTID) 1 gram tablet Take 1 tablet by mouth once daily. For Diarrhea Post Gall Bladder Removal metFORMIN ER (GLUCOPHAGE XR) 500 mg 24 hr tablet take 2 tablets by mouth twice a day with meals flash glucose scanning reader (HealthQxSTYLE EMILIA 14 DAY READER) use as directed. Dx: Uncontrolled type 2 diabetes without insulin. flash glucose sensor (FREESTYLE EMILIA 14 DAY SENSOR) kit Apply and use as directed. Dx: Uncontrolled type 2 diabetes without insulin. Phenyleph-Shark Hxz-Ifka-Ixm (HEMORRHOIDAL) 0.25-3-12 % crea by RECTAL route twice daily. EPINEPHrine (EPIPEN) 0.3 mg/0.3 mL auto-injector Use for allergic reaction Lancets lancets Test blood sugar(s)2 times daily. Dx: uncontrolled type 2 DM insulin needles, DISPOSABLE, (BD INSULIN PEN NEEDLE UF) 31 gauge x 5/16" use once daily as directed blood sugar diagnostic (BLOOD GLUCOSE TEST) test strip Test blood sugar(s) 2 times daily. Dx: uncontrolled type 2 DM famotidine (PEPCID) 40 mg tablet Take 40 mg by mouth as needed. Allergies, medications, past surgical history, family history and past medical history were reviewed per this encounter. Objective Ortho Exam 38-year-old female, no acute distress. Evaluation of the left knee shows mild effusion. There is pain with palpation over the medial jointline. There is pain with patellar ballottement. There is no laxity with varus or valgus stress. Jesse is negative for laxity. There is pain and click over the medial aspect of the knee with Kyle. Thessaly is positive. X-ray of left knee shows mild degenerative changes Assessment/Plan ASSESSMENT Diagnosis (M25.562) Anterior knee pain, left (primary encounter diagnosis) Plan: MRI KNEE WO IVCON LEFT (M25.562) Acute pain of left knee Plan: CONSULT TO ORTHOPAEDICS Office Visit on 04/25/23 MRI KNEE WO IVCON LEFT CONSULT TO ORTHOPAEDICS PLAN Due to the fact the patient has had reoccurring issues with left knee including mechanical symptomsof locking and instability as well as joint effusion, I recommend further evaluation. MRI of the knee is ordered to evaluate for internal derangement Patient is given a Eugenio pull knee brace for support to wear with activity. FOLLOW-UP: No follow-ups on file. SIGNATURE: Venkat Scruggs DO PATIENT NAME: Candelaria Grant DATE: April 25, 2023 TIME: 11:18 AM * Mariluz Martinez Ma - 04/25/2023 10:39 AM EST [facility] ROOMING INTAKE FLOWSHEET DATA Pain Pain Level: 8 Pain Location: Knee-Left Description: Sharp, Aching Duration Amount of Time: ("few weeks ago") Frequency: Continuous Intervention/Comfort measure: Cold, Heat, Massage Patient states she slipped on her porch a few weeks ago. She has sharp aching pain. Has been using ice, heat and massage. She stands all day in steel toed boots for work. documented in this encounterHolzer Health System12-04-2023 Miscellaneous Notes* Telephone Encounter - Marlin Carr [facility] - 02/17/2023 9:50 AM EST Behavioral Health Social Work Progress Note Patient identified for [facility] from: PCP Reason for referral: Resources Behavioral Health Resources: Psychology - talk therapy [facility] encounter type: Telephone Encounter, [employer] Message Attempts to Outreach: 1 attempt Referral made: Psychology - Internal, Psychology - External Psychology-Internal referral type: Therapy Psychology-External referral type: Therapy Reason for external referral: Wait times at [facility] too long, Patient choice Final Disposition: Resources given Patient Discharged?: Yes Patient reported that caregiver was able to meet their needs today?: Yes therapist spoke to patient about counseling services. She reports that she is interested, would be ok with resources sent to [facility]. Patient agreed to call back if she needs additional assistance. GEO Moran-S February 17, 2023 documented in this encounterHolzer Health System12-01-2023 History of Present illness Narrative* Brad Herman MD - 02/14/2023 4:47 PM EST Patient presents with: Irritable HPI: Patient presents today for office visit for emotional distress. Visibly crying. Here with 9 yrold son. No other kids. Lives at home with her son and her boyfriend. Feels safe at home. Complains today of severe irritability. Refers to her head not being right. States she will just "snap" sometimes. Some days she has a lot of energy and motivation and feels normal. No manic episodes. There are times she's down and depressed, mind racing and is overwhelmed. Feels numb at times. Has issues concentrating. Has been there for at least several months. No new stresses. Does not sleep well. No suicidal ideation. Many times is fatigue. Is on adipex. Has been on it before and had no recent issues. Has been treated for depression and anxiety in the past. Her family is primarily in [place]. She does have a good relationship with her . Has been several ssris in the past. Does not remember how they did. Sugars have been very good. Reminded she has labs coming. Bp is up today but is anxious and tearful. MEDICATIONS: Current Outpatient Medications Medication Sig Phentermine HCl (ADIPEX-P) 37.5 mg capsule Take 1 capsule by mouth once daily for 30 days. BMI 32.01 flash glucose scanning reader (FREESTYLE EMILIA 14 DAY READER) use as directed. Dx: Uncontrolled type 2 diabetes without insulin. flash glucose sensor (FREESTYLE EMILIA 14 DAY SENSOR) kit Apply and use as directed. Dx: Uncontrolled type 2 diabetes without insulin. tirzepatide (MOUNJARO) 7.5 mg/0.5 mL pen injector Inject 7.5 mg subcutaneously one time a week. colestipol (COLESTID) 1 gram tablet Take 1 tablet by mouth once daily. For Diarrhea Post Gall Bladder Removal metFORMIN ER (GLUCOPHAGE XR) 500 mg 24 hr tablet take 2 tablets by mouth twice a day with meals Phenyleph-Shark Elm-Yqxo-Izh (HEMORRHOIDAL) 0.25-3-12 % crea by RECTAL route twice daily. EPINEPHrine (EPIPEN) 0.3 mg/0.3 mL auto-injector Use for allergic reaction Lancets lancets Test blood sugar(s)2 times daily. Dx: uncontrolled type 2 DM insulin needles, DISPOSABLE, (BD INSULIN PEN NEEDLE UF) 31 gauge x 5/16" use once daily as directed blood sugar diagnostic (BLOOD GLUCOSE TEST) test strip Test blood sugar(s) 2 times daily. Dx: uncontrolled type 2 DM famotidine (PEPCID) 40 mg tablet Take 40 mg by mouth as needed. No current facility-administered medications for this visit. ALLERGIES: ALLERGIES Allergen Reactions Macadamia Nut Oil Hives, Swelling, Shortness of Breath Meloxicam Intolerance Headache PAST MEDICAL HISTORY Diagnosis Date Abnormal Pap smear of cervix ascus cannot rule out high grade Diabetes mellitus type 2 in obese (HCC) Migraine headache Obesity PAST SURGICAL HISTORY Procedure Laterality Date SECTION HX 03/24/2013 CHOLECYSTECTOMY HX INSERTION OF IUD 2016 Mirena IUD removed 10/20/2020 KYLEENA IUD 10/20/2020 NEXPLANON INSERTION 05/10/2013 OSTECTOMY CALCANEUS SPUR W/WO PLNTAR FASCIAL RLS Left Dr. Jimenez REPAIR OF NASAL SEPTUM FAMILY HISTORY Problem Relation Age of Onset No Known Problems Mother Cancer Father pancreatic and renal. No Known Problems Brother No Known Problems Maternal Grandmother Diabetes Maternal Grandfather Diabetes Paternal Grandfather No Known Problems Son Breast Cancer Maternal Aunt Cervical Cancer Paternal Aunt x2- and one cousin other (lymphomia) Other maternal cousin other (leukemia) Other cousin Social History Tobacco Use Smoking status: Never Smokeless tobacco: Never Vaping Use Vaping Use: Never used Substance Use Topics Alcohol use: Yes Comment: Rarely Drug use: No Reviewed current medications, allergies, past medical history, surgical history, family history andsocial history today. REVIEW OF SYSTEMS All other reviewed and negative other than HPI. VITALS: BP 120/88 Pulse 88 Ht 175.3 cm (5' 9") Wt 90.7 kg (200 lb) LMP 12/09/2022 (Approximate) SpO2 99% BMI 29.53 kg/m Last 4 Encounter Wt Readings: Date: Wt: 01/09/2023 93 kg (205 lb) 01/01/2023 92.5 kg (204 lb) 12/28/2022 91.6 kg (202 lb) 10/25/2022 92.8 kg (204 lb 9.6 oz) PHYSICAL EXAMINATION: General appearance: well appearing. Flat affect. Tearful. Skin: Skin color, texture, turgor normal, no suspicious rashes or lesions Head: Normocephalic, no masses, lesions, tenderness or abnormalities Lungs: Lungs clear to auscultation. No wheezing, rhonchi, rales Heart: RRR without murmur, gallop, or rubs. No ectopy Abdomen: Normal abdominal exam, Abdomen soft, non-tender. Bowel sounds normal. No masses, organomegaly Extremities: No deformities, edema, skin discoloration, clubbing or cyanosis. Good capillary refill. ASSESSMENT/PLAN: 1. Major depressive disorder with current active episode, unspecified depression episode severity, unspecified whether recurrent - ICD9: 296.30, ICD10: F32.9 (primary diagnosis) - hold adipex due to interaction with meds. Discussed risks and benefits of new medication with the patient. Advised them to call if any side effects or questions. - call if any issues. Follow up with pcp team in next few weeks. Agreeable to counseling. - TSH BLD - ESCITALOPRAM 10 MG TABLET - CONSULT TO [facility] 2. Uncontrolled type 2 diabetes mellitus with hyperglycemia (HCC) - ICD9: 250.02, ICD10: E11.65 - reminded to get labs. 3. Hyperlipidemia LDL goal <100 - ICD9: 272.4, ICD10: E78.5 -as above. Brad Herman MD documented in this encounterHolzer Health System11-20-2023 Miscellaneous Notes* Telephone Encounter - Polly Grant APRN.GUM COOK - 02/03/2023 10:40 AM EST PDMP website checked and validated. All prescriptions have been APPROPRIATELY filled. No suspiciousactivity was identified. 02/03/2023 by Polly Grant APRN.CNP The following approved medication requests have been transmitted electronically. Requested Prescriptions Signed Prescriptions Disp Refills Phentermine HCl (ADIPEX-P) 37.5 mg capsule 30 capsule 0 Sig: Take 1 capsule by mouth once daily for 30 days. BMI 32.01 Authorizing Provider: POLLY GRANT APRN.KEEGAN * Telephone Encounter - Mariel Carbajal MA - 02/03/2023 10:30 AM EST ARJIV: 01/09/23 with AD NOV: No F/U appt scheduled at this time Last refill: 12/27/22 With 30 and 0 refills Mariel Carbajal MA documented in this encounterHolzer Health System11-20-2023 Miscellaneous Notes* Telephone Encounter - Goldie Milton LPN - 02/03/2023 10:01 AM EST Rajiv--01/09/23 Nov--nothing scheduled Last refill--02/13/22 1 with 0 refills Last labs--10/25/22 documented in this encounterHolzer Health System11-02-2023 Miscellaneous Notes* Telephone Encounter - Gill Palomo Ma - 01/16/2023 8:11 AM EDT PA approved till 12/2023, faxed approval to pharmacy. Patient was left detailed message on Gill Palomo Ma * Telephone Encounter - Gill Palomo Ma - 01/10/2023 10:02 AM EDT Prior Authorization has been completed online at [facility] for Martin, will await response. [id number] Please keep encounter open until final decision has been received and documented from insurance company. Gill Palomo MA documented in this encounterHolzer Health System10-18-2023 History of Present illness Narrative* Bharat Martinez MD - 01/01/2023 11:06 AM EDT Chief Complaint Patient presents with: sinus pressure that radiates into R neck into shoulder/dizz HPI Candelaria Grant is a 37 year old female who presents here today for Above Complaints. Patient here today with c/o maxillary sinus pressure, nasal congestion, rhinorrhea, headache, neck pain radiating to shoulder and dizziness for 2 weeks. Evaluated in [facility] on 12/28 for the dizziness andshoulder pain and was diagnosed with muscle pain and treated with prednisone taper and Antivert. Has been taking as prescribed which has not helped with symptoms. Taking ibuprofen and tylenol OTC which helps with her headache. Symptoms stable. Dizziness not a sensation of the room spinning. States it feels like the noise you get when you putwindows down in the car. Admits fatigue, ear pain/fullness, sore throat, lymphadenopathy. Denies fever/chills, cough, SOB, wheezing, nausea, vomiting, diarrhea, loss of taste/smell. Past medical history, appointments, medications, allergies reviewed. Previous Medical History PAST MEDICAL HISTORY Diagnosis Date Abnormal Pap smear of cervix ascus cannot rule out high grade Diabetes mellitus type 2 in obese (HCC) Migraine headache Obesity Previous Surgical History PAST SURGICAL HISTORY Procedure Laterality Date SECTION HX 03/24/2013 CHOLECYSTECTOMY HX INSERTION OF IUD 2017 Mirena IUD removed 10/20/2020 KYLEENA IUD 10/20/2020 NEXPLANON INSERTION 05/10/2013 OSTECTOMY CALCANEUS SPUR W/WO PLNTAR FASCIAL RLS Left Dr. Jimenez REPAIR OF NASAL SEPTUM Family History FAMILY HISTORY Problem Relation Age of Onset No Known Problems Mother Cancer Father pancreatic and renal. No Known Problems Brother No Known Problems Maternal Grandmother Diabetes Maternal Grandfather Diabetes Paternal Grandfather No Known Problems Son Breast Cancer Maternal Aunt Cervical Cancer Paternal Aunt x2- and one cousin other (lymphomia) Other maternal cousin other (leukemia) Other cousin Patient Allergies ALLERGIES Allergen Reactions Macadamia Nut Oil Hives, Swelling, Shortness of Breath Meloxicam Intolerance Headache Current Medications Current Outpatient Medications on File Prior to Visit Medication Sig predniSONE (DELTASONE) 10 mg tablet Take 4 tabs daily for 3 days, then 2 tabs daily for 3 days, then 1 tab daily for 3 days with food. meclizine (ANTIVERT) 12.5 mg tab Take 1 tablet by mouth every 6 hours as needed (dizziness) for up to 4 days. Phentermine HCl (ADIPEX-P) 37.5 mg capsule Take 1 capsule by mouth once daily for 30 days. BMI 32.01 colestipol (COLESTID) 1 gram tablet Take 1 tablet by mouth once daily. For Diarrhea Post Gall Bladder Removal semaglutide (OZEMPIC) 2 mg/dose (8 mg/3 mL) pen injector Inject 2 mg subcutaneously one time a week. metFORMIN ER (GLUCOPHAGE XR) 500 mg 24 hr tablet take 2 tablets by mouth twice a day with meals ibuprofen (MOTRIN) 800 mg tablet Take 1 tablet by mouth every 8 hours as needed for pain. FOR PAIN. flash glucose sensor (FREESTYLE EMILIA 14 DAY SENSOR) kit Apply and use as directed. Dx: Uncontrolled type 2 diabetes without insulin. flash glucose scanning reader (FREESTYLE EMILIA 14 DAY READER) use as directed. Dx: Uncontrolled type 2 diabetes without insulin. ibuprofen (MOTRIN) 800 mg tablet take 1 tablet by mouth every 8 hours with food if needed for pain Phenyleph-Shark Dvt-Mqkk-Hlj (HEMORRHOIDAL) 0.25-3-12 % crea by RECTAL route twice daily. EPINEPHrine (EPIPEN) 0.3 mg/0.3 mL auto-injector Use for allergic reaction Lancets lancets Test blood sugar(s)2 times daily. Dx: uncontrolled type 2 DM insulin needles, DISPOSABLE, (BD INSULIN PEN NEEDLE UF) 31 gauge x 5/16" use once daily as directed blood sugar diagnostic (BLOOD GLUCOSE TEST) test strip Test blood sugar(s) 2 times daily. Dx: uncontrolled type 2 DM famotidine (PEPCID) 40 mg tablet Take 40 mg by mouth as needed. No current facility-administered medications on file prior to visit. Social History Social History Tobacco Use Smoking status: Never Smokeless tobacco: Never Vaping Use Vaping Use: Never used Substance Use Topics Alcohol use: Yes Comment: Rarely Drug use: No Review of Symptoms REVIEW OF SYSTEMS See HPI EXAM: BP 152/102 Pulse 85 Temp 37.1 C (98.8 F) Resp 16 Ht 175.3 cm (5' 9") Wt 92.5 kg (204 lb) LMP 12/09/2022 (Approximate) BMI 30.13 kg/m General Appearance: Well appearing, alert, in no acute distress, well-hydrated, well nourished.. Skin: Skin color, texture, turgor normal, no suspicious rashes or lesions. Head: Normocephalic, no masses, lesions, tenderness or abnormalities. Eyes: Anicteric sclera. Pupils are equally round and reactive to light. Extraocular movements are intact. . Ears: External ears normal, canals clear. Nose/Sinuses: Positive findings: mucosa erythematous and swollen, TTP over maxillary sinuses. Oropharynx: Lips, mucosa, and tongue normal, teeth and gums normal, oropharynx normal. Neck: Supple, no adenopathy; thyroid symmetric, normal size, no bruits. Lungs: Lungs clear to auscultation. No wheezing, rhonchi, rales.. Heart: RRR without murmur, gallop, or rubs. No ectopy. Musculoskeletal: TTP of right cervical paraspinal muscles. Normal ROM of cervical spine. Negative kernig and brudzinski. Health Maintenance List Pneumococcal Vaccine(2 - PCV) due on 01/22/2017 Dilated Retinal Exam due on 03/17/2022 Influenza Vaccine(1) due on 11/15/2022 Covid-19 Vaccine(1) due on 02/13/2023 Depression Assessment due on 03/16/2023 DTaP,Tdap,Td Vaccine(1 - Tdap) due on 10/26/2023 Diabetic Foot Exam due on 02/13/2023 HbA1C due on 04/24/2023 Urine Albumin:Creatinine Ratio due on 10/23/2023 LDL Cholesterol due on 10/23/2023 Annual PCP Team Chronic Disease Visit due on 10/26/2023 Pap Testing due on 04/02/2027 HPV Testing due on 04/02/2027 Hepatitis C Screening Completed HIV Screening Completed HPV Vaccine Aged Out ASSESSMENT/PLAN: 1. Strain of neck muscle, initial encounter - ICD9: 847.0, ICD10: S16.1XXA (primary diagnosis) Will treat with home exercises, rest, ice/heat, ibuprofen as prescribed. Call if not improving in 1-2 weeks. 2. Bacterial sinusitis - ICD9: 473.9, 041.9, ICD10: J32.9, B96.89 - Will begin treatment with Augmentin 875 mg PO BID for 10 days - Supportive care with plenty of fluids, rest, and analgesia prn. - Follow up in one week if symptoms persist or worsen. 3. Dizziness - ICD9: 780.4, ICD10: R42 May be 2/2 sinuses with fluid behind TM vs HTN 2/2 pain. May use antivert PRN. Red flags for re-assessment reviewed with patient in detail. 4. Elevated BP without diagnosis of hypertension - ICD9: 796.2, ICD10: R03.0 Likely 2/2 neck pain. See above. F/u in 2 weeks with PCP team for recheck. Bharat Martinez MD documented in this encounterHolzer Health System10-14-2023 History of Present illness Narrative* Catracho Wan APRN.GUM COOK - 12/28/2022 3:21 PM EDT Subjective She came in with complaints of dizziness and shoulder neck pain. Patient said she gets this from time to time when she uses it too much at work. Patient says she has had this happen multiple times and usually steroids help significantly. Patient does have TMJ that will also flareup. Patient denies any chest pain tightness shortness of breath. Patient is also having dizziness which is normal for patient. Usually takes meclizine. The history is provided by the patient. No english language learner teacher was used. Ear Pain Associated symptoms include headaches. Pain (Shoulder Pain) Associated symptoms include headaches. Headache Review of Systems Constitutional: Negative. Skin: Negative. Neurological: Positive for headaches. Objective Physical Exam Constitutional: Appearance: Normal appearance. HENT: Right Ear: Tympanic membrane, ear canal and external ear normal. Left Ear: External ear normal. Pulmonary: Effort: Pulmonary effort is normal. Neurological: Mental Status: She is alert. PAST MEDICAL HISTORY Diagnosis Date Abnormal Pap smear of cervix ascus cannot rule out high grade Diabetes mellitus type 2 in obese (HCC) Migraine headache Obesity PAST SURGICAL HISTORY Procedure Laterality Date SECTION HX 03/24/2013 CHOLECYSTECTOMY HX INSERTION OF IUD 2017 Mirena IUD removed 10/20/2020 KYLEENA IUD 10/20/2020 NEXPLANON INSERTION 05/10/2013 OSTECTOMY CALCANEUS SPUR W/WO PLNTAR FASCIAL RLS Left Dr. Jimenez REPAIR OF NASAL SEPTUM ALLERGIES Macadamia Nut Oil and Meloxicam MEDICATIONS blood sugar diagnostic (BLOOD GLUCOSE TEST) test strip Test blood sugar(s) 2 times daily. Dx: uncontrolled type 2 DM colestipol (COLESTID) 1 gram tablet Take 1 tablet by mouth once daily. For Diarrhea Post Gall Bladder Removal EPINEPHrine (EPIPEN) 0.3 mg/0.3 mL auto-injector Use for allergic reaction famotidine (PEPCID) 40 mg tablet Take 40 mg by mouth as needed. flash glucose scanning reader (FREESTYLE EMILIA 14 DAY READER) use as directed. Dx: Uncontrolled type 2 diabetes without insulin. flash glucose sensor (FREESTYLE EMILIA 14 DAY SENSOR) kit Apply and use as directed. Dx: Uncontrolled type 2 diabetes without insulin. ibuprofen (MOTRIN) 800 mg tablet take 1 tablet by mouth every 8 hours with food if needed for pain ibuprofen (MOTRIN) 800 mg tablet Take 1 tablet by mouth every 8 hours as needed for pain. FOR PAIN. insulin needles, DISPOSABLE, (BD INSULIN PEN NEEDLE UF) 31 gauge x 5/16" use once daily as directed Lancets lancets Test blood sugar(s)2 times daily. Dx: uncontrolled type 2 DM meclizine (ANTIVERT) 12.5 mg tab Take 1 tablet by mouth every 6 hours as needed (dizziness) for up to 4 days. metFORMIN ER (GLUCOPHAGE XR) 500 mg 24 hr tablet take 2 tablets by mouth twice a day with meals Phentermine HCl (ADIPEX-P) 37.5 mg capsule Take 1 capsule by mouth once daily for 30 days. BMI 32.01 Phenyleph-Shark Vfn-Stos-Clq (HEMORRHOIDAL) 0.25-3-12 % crea by RECTAL route twice daily. predniSONE (DELTASONE) 10 mg tablet Take 4 tabs daily for 3 days, then 2 tabs daily for 3 days, then 1 tab daily for 3 days with food. semaglutide (OZEMPIC) 2 mg/dose (8 mg/3 mL) pen injector Inject 2 mg subcutaneously one time a week. FAMILY HISTORY Problem Relation Age of Onset No Known Problems Mother Cancer Father pancreatic and renal. No Known Problems Brother No Known Problems Maternal Grandmother Diabetes Maternal Grandfather Diabetes Paternal Grandfather No Known Problems Son Breast Cancer Maternal Aunt Cervical Cancer Paternal Aunt x2- and one cousin other (lymphomia) Other maternal cousin other (leukemia) Other cousin Social History Tobacco Use Smoking status: Never Smokeless tobacco: Never Vaping Use Vaping Use: Never used Substance Use Topics Alcohol use: Yes Comment: Rarely Drug use: No ASSESSMENT/PLAN: 1. Muscle pain - ICD9: 729.1, ICD10: M79.10 Meclizine also prescribed. - PREDNISONE 10 MG TABLET Patient gets vertigo from time to time and requested meclizine. Patient was educated about proper use of medication and supportive therapies. Patient will follow-up if signs and symptoms seem to be getting worse not better. Catracho Wan APRN.KEEGAN documented in this encounterHolzer Health System10-13-2023 Miscellaneous Notes* Telephone Encounter - Karla Aldana LPN - 12/27/2022 10:22 AM EDT Spoke with pt and information listed below given. Pt verbalizes understanding. 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 Karla Aldana LPN Patient has been identified by name and date of : Yes, Provider Dr. Carrillo Date 12/27/22 Time 8:03 am Patient phones for refill(s): Requested Prescriptions Pending Prescriptions Disp Refills Phentermine HCl (ADIPEX-P) 37.5 mg capsule 30 capsule 0 Sig: Take 1 capsule by mouth once daily for 30 days. BMI 32.01 Date of last office visit in primary care: 10/25/2022 Date of next office visit in primary care: 01/24/2023 Last 2 Encounter Wt Readings: Date: Wt: 10/25/2022 92.8 kg (204 lb 9.6 oz) 10/22/2022 93.1 kg (205 lb 3.2 oz) Previous labs/tests for medication: Not applicable Thank you. Karla Aldana LPN. documented in this encounterHolzer Health System10-10-2023 Miscellaneous Notes* Telephone Encounter - Kaylie Barnett LPN - 12/24/2022 4:39 PM EDT Pt. called Appointment made. If symptoms worsen go to [facility] or ER. * Telephone Encounter - Paula Uribe - 12/24/2022 12:22 PM EDT Patient phoned in today looking for appointment with PCP team for dizzy spells with pain in her neck and and upper back declined to be transferred to a nurse as she needed to get back to work. Just wanted to document this. documented in this encounterHolzer Health System08-08-2023 History of Present illness Narrative* Ankur Matias APRN.KEEGAN - 10/22/2022 3:16 PM EDT Images from the original note were not included. Subjective HPI Nontoxic-appearing female presents urgent care chief right thigh pain. Duration of symptoms 6 days.Associated symptoms right thigh pain. States has had some nausea and fatigue does not feel like this is related. States thigh pain and other symptoms are improving. Presents today for evaluation. Denies any known injuries. No redness. Pain is improving. Denies any fever body aches productive cough chest pain shortness of breath pleuritic pain hemoptysis vomiting abdominal pain change in bowel or bladder habits. Past medical history prescription medication use and allergies reviewed. BP 132/70 Pulse 93 Temp 36.4 C (97.6 F) (Temporal) Resp 16 Wt 93.1 kg (205 lb 3.2 oz) LMP09/29/2022 SpO2 98% BMI 30.05 kg/m .Patient presents with: Nausea: Pt reported chills, (RT) thigh pain x6 days. PAST MEDICAL HISTORY Diagnosis Date Abnormal Pap smear of cervix ascus cannot rule out high grade Diabetes mellitus type 2 in obese (HCC) Migraine headache Obesity PAST SURGICAL HISTORY Procedure Laterality Date SECTION HX 03/24/2013 CHOLECYSTECTOMY HX INSERTION OF IUD 2016 Mirena IUD removed 10/20/2020 KYLEENA IUD 10/20/2020 NEXPLANON INSERTION 05/10/2013 OSTECTOMY CALCANEUS SPUR W/WO PLNTAR FASCIAL RLS Left Dr. Jimenez REPAIR OF NASAL SEPTUM ALLERGIES Macadamia Nut Oil and Meloxicam MEDICATIONS silver sulfADIAZINE (SILVADENE) 1 % cream Apply 1 application to affected area twice daily for 14 days. metFORMIN ER (GLUCOPHAGE XR) 500 mg 24 hr tablet take 2 tablets by mouth twice a day with meals colestipol (COLESTID) 1 gram tablet Take 1 tablet by mouth once daily. For Diarrhea Post Gall Bladder Removal ibuprofen (MOTRIN) 800 mg tablet Take 1 tablet by mouth every 8 hours as needed for pain. FOR PAIN. lisinopril (ZESTRIL) 5 mg tablet Take 1 tablet by mouth once daily. flash glucose sensor (FREESTYLE EMILIA 2 SENSOR) kit 1 Each as directed. Type 2 diabetes uncontrolled. flash glucose sensor (FREESTYLE EMILIA 14 DAY SENSOR) kit Apply and use as directed. Dx: Uncontrolled type 2 diabetes without insulin. flash glucose scanning reader (FREESTYLE EMILIA 14 DAY READER) use as directed. Dx: Uncontrolled type 2 diabetes without insulin. ibuprofen (MOTRIN) 800 mg tablet take 1 tablet by mouth every 8 hours with food if needed for pain EPINEPHrine (EPIPEN) 0.3 mg/0.3 mL auto-injector Use for allergic reaction Lancets lancets Test blood sugar(s)2 times daily. Dx: uncontrolled type 2 DM insulin needles, DISPOSABLE, (BD INSULIN PEN NEEDLE UF) 31 gauge x 5/16" use once daily as directed blood sugar diagnostic (BLOOD GLUCOSE TEST) test strip Test blood sugar(s) 2 times daily. Dx: uncontrolled type 2 DM famotidine (PEPCID) 40 mg tablet Take 40 mg by mouth as needed. semaglutide (OZEMPIC) 2 mg/dose (8 mg/3 mL) pen injector Inject 2 mg subcutaneously one time a week. Phenyleph-Shark Lma-Prhv-Lwy (HEMORRHOIDAL) 0.25-3-12 % crea by RECTAL route twice daily. FAMILY HISTORY Problem Relation Age of Onset No Known Problems Mother Cancer Father pancreatic and renal. No Known Problems Brother No Known Problems Maternal Grandmother Diabetes Maternal Grandfather Diabetes Paternal Grandfather No Known Problems Son Breast Cancer Maternal Aunt Cervical Cancer Paternal Aunt x2- and one cousin other (lymphomia) Other maternal cousin other (leukemia) Other cousin Social History Tobacco Use Smoking status: Never Smokeless tobacco: Never Vaping Use Vaping Use: Never used Substance Use Topics Alcohol use: Yes Comment: Rarely Drug use: No Review of Systems Constitutional: Negative for chills, fever and malaise/fatigue. HENT: Negative for congestion, ear discharge, ear pain, sinus pain and sore throat. Eyes: Negative for blurred vision, pain, discharge and redness. Respiratory: Negative for cough, hemoptysis, sputum production, shortness of breath, wheezing and stridor. Cardiovascular: Negative for chest pain. Gastrointestinal: Negative for abdominal pain, diarrhea, nausea and vomiting. Musculoskeletal: Negative for myalgias. Skin: Negative for itching and rash. Neurological: Negative for dizziness and headaches. Objective Physical Exam Constitutional: General: She is not in acute distress. Appearance: She is not toxic-appearing. HENT: Head: Normocephalic. Nose: Nose normal. Eyes: Pupils: Pupils are equal, round, and reactive to light. Cardiovascular: Rate and Rhythm: Normal rate. Pulmonary: Effort: Pulmonary effort is normal. No respiratory distress. Musculoskeletal: Cervical back: Normal range of motion. Legs: Comments: Mild discomfort with palpation highlighted area. No redness. No edema. Full range of motion. Skin: General: Skin is warm and dry. Neurological: General: No focal deficit present. Mental Status: She is alert. ASSESSMENT/PLAN: 1. Pain of right lower extremity - ICD9: 729.5, ICD10: M79.604 Diagnosed with leg pain. No evidence of bacterial infection. Pain is progressively improving. Continue supportive therapies and conservative management. Stretches ice discussed. Red flags prompt elevation discussed. Patient was educated on supportive therapies. Patient will follow up with primary care provider as needed. Patient was instructed to immediately proceed to emergency room for any new,worsening, or symptoms lasting longer than anticipated. The patient's clinical presentation is otherwise unremarkable at this time. Based on exam and clinical finding, the patient is stable for discha rge. Plan of care was discussed with patient. Patient verbalizes understanding and agrees to plan of care. This note was generated using Alo7 software. It may contain errors in wording, punctuation, or spelling. Ankur Matias APRN.GUM COOK documented in this encounterHolzer Health System07-28-2023 History of Present illness Narrative* Viola Sommer RT(R) - 10/11/2022 4:10 PM EDT Radiology Service Progress Note PATIENT NAME: Candelaria Grant DATE OF SERVICE: October 11, 2022 TIME: 4:16 PM PATIENT IDENTITY VERIFICATION COMPLETED USING TWO (2) IDENTIFIERS: Name and Date of confirmedby patient verbally. FALL SCREENING: Has the patient had 2 falls in the last year or 1 fall with injury or currently using an Ambulatory Assistive Device (Walker, Cane, Wheelchair, Crutches, etc.)? No PATIENT GENDER DATA: Female. status: : No status: NO. PATIENT RELEVANT IMPLANT DATA REVIEWED: Yes RADIOLOGY DEPARTMENT: General X-ray: Exam(s) Completed: Upper Extremity X- Ray(s): Shoulder, AP / TRUE AP / AXILLARY right PERIPHERAL IV DATA: Not applicable SIGNED BY: RT Josh(R) October 11, 2022 4:16 PM documented in this encounterHolzer Health System07-28-2023 History of Present illness Narrative* Brad Herman MD - 10/11/2022 3:39 PM EDT Patient presents with: Derm Problem: Sunburn HPI: Patient presents today for office visit for urgent care. Recheck sunburn has been using aloe. Is sore. Just hasn't felt good since being in for this 10/07/22. Still with nausea and diarrhea. Headache off and on. Denies fever. Glucose checked yesterday but hasn't checked since. Currently 129. Has a emilia sensor so was able to check in office. Started on Friday. No fever. Diarrhea. Gets nauseated. No bloody or black stools. No recent travel. Was at [facility]. Still getting some blisters on her skin. No cough. No vomiting. Drinking fluids well. Does drink fluids well. No antibiotic usage recently. No travel outside the country. No urinary issues. Has a mirena IUD. Normal very light menses. Still with shoulder pain. Is moving into her deltoid. 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 Has an upcoming appt on 10/25 with Polly for her See urgent care note: Feeling sick since yesterday [place] floating on the river. Her son has gastroenteritis symptoms also. Positive symptoms: Headache, Nausea, Diarrhea, sunburn, Negative symptoms: Fever, Vomiting, See Kevin Witt note from 10/04: Patient complains of: shoulder pain. She is right hand dominant. Duration: 1 week without injury or trauma Location:right Associated Symptoms: radiating into the right side of neck, causing headache Aggravating factors:lifting objects. Laying on the right side during sleep Things that improve symptoms : Not really. Using a heating pad, 800 mg of ibuprofen and tylenol. MEDICATIONS: Current Outpatient Medications Medication Sig metFORMIN ER (GLUCOPHAGE XR) 500 mg 24 hr tablet take 2 tablets by mouth twice a day with meals colestipol (COLESTID) 1 gram tablet Take 1 tablet by mouth once daily. For Diarrhea Post Gall Bladder Removal Phentermine HCl (ADIPEX-P) 37.5 mg capsule Take 1 capsule by mouth once daily for 30 days. BMI 32.01 semaglutide (OZEMPIC) 2 mg/dose (8 mg/3 mL) pen injector Inject 2 mg subcutaneously one time a week. ibuprofen (MOTRIN) 800 mg tablet Take 1 tablet by mouth every 8 hours as needed for pain. FOR PAIN. lisinopril (ZESTRIL) 5 mg tablet Take 1 tablet by mouth once daily. flash glucose sensor (FREESTYLE EMILIA 2 SENSOR) kit 1 Each as directed. Type 2 diabetes uncontrolled. flash glucose sensor (FREESTYLE EMILIA 14 DAY SENSOR) kit Apply and use as directed. Dx: Uncontrolled type 2 diabetes without insulin. flash glucose scanning reader (FREESTYLE EMILIA 14 DAY READER) use as directed. Dx: Uncontrolled type 2 diabetes without insulin. ibuprofen (MOTRIN) 800 mg tablet take 1 tablet by mouth every 8 hours with food if needed for pain (Patient not taking: Reported on 10/04/2022) Phenyleph-Shark Uza-Jfpd-Wbe (HEMORRHOIDAL) 0.25-3-12 % crea by RECTAL route twice daily. EPINEPHrine (EPIPEN) 0.3 mg/0.3 mL auto-injector Use for allergic reaction Lancets lancets Test blood sugar(s)2 times daily. Dx: uncontrolled type 2 DM insulin needles, DISPOSABLE, (BD INSULIN PEN NEEDLE UF) 31 gauge x 5/16" use once daily as directed blood sugar diagnostic (BLOOD GLUCOSE TEST) test strip Test blood sugar(s) 2 times daily. Dx: uncontrolled type 2 DM famotidine (PEPCID) 40 mg tablet Take 40 mg by mouth as needed. No current facility-administered medications for this visit. ALLERGIES: ALLERGIES Allergen Reactions Macadamia Nut Oil Hives, Swelling, Shortness of Breath Meloxicam Intolerance Headache PAST MEDICAL HISTORY Diagnosis Date Abnormal Pap smear of cervix ascus cannot rule out high grade Diabetes mellitus type 2 in obese (HCC) Migraine headache Obesity PAST SURGICAL HISTORY Procedure Laterality Date SECTION HX 03/24/2013 CHOLECYSTECTOMY HX INSERTION OF IUD 2017 Mirena IUD removed 10/20/2020 KYLEENA IUD 10/20/2020 NEXPLANON INSERTION 05/10/2013 OSTECTOMY CALCANEUS SPUR W/WO PLNTAR FASCIAL RLS Left Dr. Jimenez REPAIR OF NASAL SEPTUM FAMILY HISTORY Problem Relation Age of Onset No Known Problems Mother Cancer Father pancreatic and renal. No Known Problems Brother No Known Problems Maternal Grandmother Diabetes Maternal Grandfather Diabetes Paternal Grandfather No Known Problems Son Breast Cancer Maternal Aunt Cervical Cancer Paternal Aunt x2- and one cousin other (lymphomia) Other maternal cousin other (leukemia) Other cousin Social History Tobacco Use Smoking status: Never Smokeless tobacco: Never Vaping Use Vaping Use: Never used Substance Use Topics Alcohol use: Yes Comment: Rarely Drug use: No Reviewed current medications, allergies, past medical history, surgical history, family history andsocial history today. REVIEW OF SYSTEMS All other reviewed and negative other than HPI. VITALS: BP 122/72 Pulse 87 Wt 92.5 kg (204 lb) LMP 05/21/2022 (Within Days) SpO2 97% BMI 29.87 kg/m Last 4 Encounter Wt Readings: Date: Wt: 10/07/2022 91.9 kg (202 lb 9.6 oz) 10/04/2022 91.9 kg (202 lb 9.6 oz) 07/12/2022 99.2 kg (218 lb 9.6 oz) 07/11/2022 99.3 kg (219 lb) PHYSICAL EXAMINATION: General appearance: Well appearing, alert, in no acute distress, well-hydrated, well nourished. Skin: has a diffuse sunburn on her abdomen. Some blistering. No signs of infection. Oropharynx: Lips, mucosa, and tongue normal, teeth and gums normal, oropharynx normal Neck: Supple, Lungs: Lungs clear to auscultation. No wheezing, rhonchi, rales Heart: RRR without murmur, gallop, or rubs. No ectopy Abdomen: Normal abdominal exam, Abdomen soft, non-tender. Bowel sounds normal. No masses, organomegaly Extremities: No deformities, edema, skin discoloration, clubbing or cyanosis. Good capillary refill. Shoulder: Location: right Redness: No. Warmth: No. Tenderness to palpation: over trap and deltoid. Swelling: No. Range of motion: negative. . Empty can test: negative. ASSESSMENT/PLAN: 1. Diarrhea, unspecified type - ICD9: 787.91, ICD10: R19.7 (primary diagnosis) - avoid dairy. Since was in a river, will check stool studies. Red flags for re-assessment reviewed with patient in detail. - Call if symptoms worsen at all or if not better in one to two weeks - CBC + DIFF - BASIC METABOLIC PNL - OVA + PARA MICROSCOPIC - ENTERIC BACTERIAL PANEL BY PCR - C. DIFFICILE PCR - FECAL LACTOFERRIN/LEUKOCYTES 2. Sunburn - ICD9: 692.71, ICD10: L55.9 - Discussed risks and benefits of new medication with the patient. Advised them to call if any sideeffects or questions. Red flags for re-assessment reviewed with patient in detail. Call if symptoms worsen at all or if not better in one to two weeks Reviewed diagnosis and treatment options in detail. Questions were answered. Patient expressed understanding of treatment plan. - SILVER SULFADIAZINE 1 % TOPICAL CREAM 3. Right shoulder pain. Xray Follow previous recommendations once stomach is settled down. RICE Red flags for re-assessment reviewed with patient in detail. Call if symptoms worsen at all or if not better in one to two weeks Brad Herman MD documented in this encounterHolzer Health System07-06-2023 Miscellaneous Notes* Telephone Encounter - Teo Linder MD - 09/19/2022 2:26 PM EDT OK to refill as ordered Teo Linder MD * Telephone Encounter - Karley Philip LPN - 09/19/2022 11:45 AM EDT Patient has been identified by name and date of : Yes Pharmacy phones for refill(s): Requested Prescriptions Pending Prescriptions Disp Refills metFORMIN ER (GLUCOPHAGE XR) 500 mg 24 hr tablet [Pharmacy Med Name: METFORMIN HCL ER 500 MG TABLET] 180 tablet Sig: take 2 tablets by mouth twice a day with meals Date of last office visit in primary care: 07/12/2022 Please advise. Thank you. Karley Philip LPN documented in this encounterHolzer Health System06-30-2023 Miscellaneous Notes* Telephone Encounter - Teo Linder MD - 09/13/2022 8:44 AM EDT OK to refill as ordered Teo Linder MD * Telephone Encounter - Pat Godoy Ma - 09/13/2022 8:20 AM EDT Last office visit: 07/12/22 F/u scheduled: none Pat Walt Oscar documented in this encounterHolzer Health System06-28-2023 Miscellaneous Notes* Telephone Encounter - Ilana Herrera APRN.CNP - 09/11/2022 9:37 PM EDT The following approved medication requests have been transmitted electronically. Requested Prescriptions Signed Prescriptions Disp Refills Phentermine HCl (ADIPEX-P) 37.5 mg capsule 30 capsule 0 Sig: Take 1 capsule by mouth once daily for 30 days. BMI 32.01 Authorizing Provider: ILANA HERRERA APRN.CNP PDMP website checked and validated. All prescriptions have been APPROPRIATELY filled. No suspiciousactivity was identified. 09/11/2022 by Ilana Herrera CNP. * Telephone Encounter - Goldie Milton LPN - 09/11/2022 9:49 AM EDT Rajiv--07/12/22 Nov--nothing scheduled Last refill--08/14/22 30 with 0 refills Last labs--05/16/22 documented in this encounterHolzer Health System06-01-2023 Miscellaneous Notes* Telephone Encounter - Goldie Milton LPN - 08/15/2022 8:40 AM EDT It appears this was completed yesterday. documented in this encounterHolzer Health System05-31-2023 Miscellaneous Notes* Telephone Encounter - Ilana Herrera APRN.CNP - 08/14/2022 5:44 PM EDT The following approved medication requests have been transmitted electronically. Requested Prescriptions Signed Prescriptions Disp Refills Phentermine HCl (ADIPEX-P) 37.5 mg capsule 30 capsule 0 Sig: Take 1 capsule by mouth once daily for 30 days. BMI 32.01 Authorizing Provider: ILANA HERRERA APRN.CNP PDMP website checked and validated. All prescriptions have been APPROPRIATELY filled. No suspiciousactivity was identified. 5 by Ilana Herrera CNP. * Telephone Encounter - Karla Aldana LPN - 08/14/2022 8:59 AM EDT Patient has been identified by name and date of : Yes, Provider Dr. Carrillo Date 08/14/22 Time9:01 am Patient phones for refill(s): Requested Prescriptions Pending Prescriptions Disp Refills Phentermine HCl (ADIPEX-P) 37.5 mg capsule 30 capsule 0 Sig: Take 1 capsule by mouth once daily for 30 days. BMI 32.01 Date of last office visit in primary care: 07/12/22 Last 2 Encounter Wt Readings: Date: Wt: 07/12/2022 99.2 kg (218 lb 9.6 oz) 07/11/2022 99.3 kg (219 lb) Previous labs/tests for medication: Not applicable Please advise. Thank you. Karla Aldana LPN documented in this encounterHolzer Health System04-29-2023 Miscellaneous Notes* Telephone Encounter - Yamile Washington LPN - 07/13/2022 10:06 AM EDT Rec'd approval for this from 07/12/22 to . Pharmacy notified. This approval is for the 2 mg. The form doesn't have a dose just approved for semaglutide. * Telephone Encounter - Yamile Washington LPN - 07/12/2022 10:00 AM EDT PA form completed and faxed to number on the form. * Telephone Encounter - Ilana Herrera APRN.CNP - 07/12/2022 9:23 AM EDT Please see if we can get the Ozempic 2mg dose covered. Sending it in again today to pharmacy. Ilana Herrera APRN.CNP documented in this encounterHolzer Health System04-28-2023 History of Present illness Narrative* Ilana Herrera APRN.CNP - 07/12/2022 9:03 AM EDT Chief Complaint Patient presents with: Follow Up: Adipex and BP HPI Candelaria Grant is a 37 year old female who presents here today for Above Complaints.. Per appointment with Polly Grant NP on 06/20/2022: Concerns today... Started Friday with sinus pressure, congestion, intermittent dizziness and neck pain. Reports nasal drip down throat is significant. Pt feels it is getting into her chest. No known exposure to COVID. No sore throat. Was seen at chiropractor this weekend that did report tightness in R side of neck and noticed a swollen lymph node to pt. Reports last few antibiotics she has been on upset her stomach. Blood sugars have been well controlled and much improved. Pt concerned current infection may interfere with how well she has been doing with her DM. ASSESSMENT/PLAN: 1. Acute non-recurrent sinusitis, unspecified location - ICD9: 461.9, ICD10: J01.90 - Will begin treatment with as per antibiotic as written, see orders - diflucan if needed for yeast infection. - The patient should also be given OTC decongestants prn, OTC cough and cold meds as needed, warm salt water gargles, throat lozenges and/or OTC throat spray as needed, and nasal saline gtts and suction prn for the first 5-7 days of treatment. - Supportive care with plenty of fluids, rest, and analgesia prn. - Follow up in 3-5 days if symptoms persist or worsen. - AZITHROMYCIN 250 MG TABLET - FLUCONAZOLE 150 MG TABLET RTO if symptoms worsen. Today: Tolerating Adipex well. Wishes she could lose weight a little faster. Having trouble losing in lower abdomen area. Not sure if recent increase in her Ozempic has been approved. Pharmacy is stating she hasn't been, but hasns't heard from our office. Left eye bothering her for about a week. Feels itchy and raw. 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 Past medical history, appointments, medications, allergies reviewed. Previous Medical History PAST MEDICAL HISTORY Diagnosis Date Abnormal Pap smear of cervix ascus cannot rule out high grade Diabetes mellitus type 2 in obese (HCC) Migraine headache Obesity Previous Surgical History PAST SURGICAL HISTORY Procedure Laterality Date SECTION HX 03/24/2013 CHOLECYSTECTOMY HX INSERTION OF IUD 2016 Mirena IUD removed 10/20/2020 KYLEENA IUD 10/20/2020 NEXPLANON INSERTION 05/10/2013 OSTECTOMY CALCANEUS SPUR W/WO PLNTAR FASCIAL RLS Left Dr. Jimenez REPAIR OF NASAL SEPTUM Family History FAMILY HISTORY Problem Relation Age of Onset No Known Problems Mother Cancer Father pancreatic and renal. No Known Problems Brother No Known Problems Maternal Grandmother Diabetes Maternal Grandfather Diabetes Paternal Grandfather No Known Problems Son Breast Cancer Maternal Aunt Cervical Cancer Paternal Aunt x2- and one cousin other (lymphomia) Other maternal cousin other (leukemia) Other cousin Patient Allergies ALLERGIES Allergen Reactions Macadamia Nut Oil Hives, Swelling, Shortness of Breath Meloxicam Intolerance Headache Current Medications Current Outpatient Medications on File Prior to Visit Medication Sig semaglutide (OZEMPIC) 2 mg/dose (8 mg/3 mL) pen injector Inject 2 mg subcutaneously one time a week. lisinopril (ZESTRIL) 5 mg tablet Take 1 tablet by mouth once daily. metFORMIN ER (GLUMETZA) 500 mg 24 hr tablet Take 2 tablets by mouth twice daily with meals. flash glucose sensor (FREESTYLE EMILIA 2 SENSOR) kit 1 Each as directed. Type 2 diabetes uncontrolled. flash glucose sensor (FREESTYLE EMILIA 14 DAY SENSOR) kit Apply and use as directed. Dx: Uncontrolled type 2 diabetes without insulin. flash glucose scanning reader (FREESTYLE EMILIA 14 DAY READER) use as directed. Dx: Uncontrolled type 2 diabetes without insulin. ibuprofen (MOTRIN) 800 mg tablet take 1 tablet by mouth every 8 hours with food if needed for pain colestipol (COLESTID) 1 gram tablet Take 1 tablet by mouth once daily. For Diarrhea Post Gall Bladder Removal EPINEPHrine (EPIPEN) 0.3 mg/0.3 mL auto-injector Use for allergic reaction Lancets lancets Test blood sugar(s)2 times daily. Dx: uncontrolled type 2 DM insulin needles, DISPOSABLE, (BD INSULIN PEN NEEDLE UF) 31 gauge x 5/16" use once daily as directed blood sugar diagnostic (BLOOD GLUCOSE TEST) test strip Test blood sugar(s) 2 times daily. Dx: uncontrolled type 2 DM ibuprofen (MOTRIN) 800 mg tablet Take 1 tablet by mouth every 8 hours as needed. FOR PAIN. famotidine (PEPCID) 40 mg tablet Take 40 mg by mouth as needed. Phenyleph-Shark Omo-Xshn-Oal (HEMORRHOIDAL) 0.25-3-12 % crea by RECTAL route twice daily. No current facility-administered medications on file prior to visit. Social History Social History Tobacco Use Smoking status: Never Smokeless tobacco: Never Vaping Use Vaping Use: Never used Substance Use Topics Alcohol use: Yes Comment: Rarely Drug use: No Review of Symptoms REVIEW OF SYSTEMS See HPI, otherwise negative EXAM: BP 132/88 (BP Site: Left Arm, BP Position: Sitting, BP Cuff Size: Regular Adult) Pulse 80 Resp 16 Wt 99.2 kg (218 lb 9.6 oz) LMP 05/21/2022 (Within Days) SpO2 99% BMI 32.01 kg/m General Appearance: Well appearing, alert, in no acute distress, well-hydrated, well nourished. andObese. Eyes: Pupils are equally round and reactive to light. Extraocular movements are intact. Left sclarea mildly injected, skin surrounding eye on eyelid and below with mild erythema, dry skin Lungs: Lungs clear to auscultation. No wheezing, rhonchi, rales.. Heart: RRR without murmur, gallop, or rubs. No ectopy. Health Maintenance List DILATED RETINAL EXAM due on 03/17/2022 DTAP,TDAP,TD(1 - Tdap) due on 08/29/2022 PNEUMOCOCCAL(2 - PCV) due on 08/29/2022 COVID-19 VACCINE(1) due on 02/13/2023 DEPRESSION ASSESSMENT due on 03/16/2023 HBA1C due on 08/16/2022 INFLUENZA(Season Ended) due on 11/15/2022 LDL CHOLESTEROL due on 11/30/2022 URINE ALBUMIN:CREATININE RATIO due on 02/13/2023 DIABETIC FOOT EXAM due on 02/13/2023 ANNUAL PCP TEAM CHRONIC DISEASE VISIT due on 06/21/2023 PAP TESTING due on 04/02/2027 HPV TESTING due on 04/02/2027 HEPATITIS C SCREENING Completed HIV SCREENING Completed Data reviewed Previous records, office notes, [facility] report PDMP website checked and validated. All prescriptions have been APPROPRIATELY filled. No suspiciousactivity was identified. 07/12/2022 by Ilana Herrera CNP. ASSESSMENT/PLAN: 1. Uncontrolled type 2 diabetes mellitus with hyperglycemia (HCC) - ICD9: 250.02, ICD10: E11.65 (primary diagnosis) - Uncontrolled - Improving control - Continue current medications - Counseled on healthy diet and regular exercise - requesting Ozempic 2mg dose again-requesting prior authorization Continue Adipex as is tolerating well-follow up in 3 months for this - SEMAGLUTIDE 2 MG/DOSE (8 MG/3 ML) SUBCUTANEOUS PEN INJECTOR - PHENTERMINE 37.5 MG CAPSULE 2. Obesity (BMI 30-39.9) - ICD9: 278.00, ICD10: E66.9 - Uncontrolled - Improving control - Continue current medications - Counseled on healthy diet and regular exercise - requesting Ozempic 2mg dose again-requesting prior authorization Continue Adipex as is tolerating well-follow up in 3 months for this - SEMAGLUTIDE 2 MG/DOSE (8 MG/3 ML) SUBCUTANEOUS PEN INJECTOR - PHENTERMINE 37.5 MG CAPSULE 3. Allergic dermatitis eyelid, left - ICD9: 373.32, ICD10: H01.116 Mild injection and itching of left eye. Applying emollient erythromycin ointment to eye first to avoid topical steroid in eye area. May need to consider topical steroid of very low dose if no improvement or worsening of sx. Discussed getting better goggles. Ilana Herrera APRN.CNP documented in this encounterHolzer Health System04-27-2023 Instructions* Patient Instructions* Yaquelin Ta APRN.CNP - 07/11/2022 1:03 PM EDT ASSESSMENT/PLAN: 1. Urinary frequency - ICD9: 788.41, ICD10: R35.0 acute - UA positive for proteinuria (30) otherwise negative. - Send urine for culture - Patient education for prevention given - UA DIP, URINE (POC) - URINE CULTURE - take ibuprofen for back pain. Increase fluid intake. - Follow-up with your PCP in 3-5 days if symptoms have not improved or sooner if symptoms worsen - Discussed red flags and need for immediate medical evaluation if any occur. - Discussed supportive care treatment with fluids, rest and analgesia. - Discussed expected course of illness Yaquelin Ta APRN.CNP documented in this encounterHolzer Health System04-27-2023 History of Present illness Narrative* Yaquelin Ta APRN.CNP - 07/11/2022 1:00 PM EDT Images from the original note were not included. Subjective HPI Candelaria Grant is a 37 year old female who presents with right lower back pain, urinary frequency for the past 2 days. She rates her pain 9/10. She has not had a fever. No dysuria or hematuria. She has taken Ibuprofen at home for her symptoms. Review of Systems Constitutional: Negative for chills and fever. Respiratory: Negative. Cardiovascular: Negative. Gastrointestinal: Negative for abdominal pain, nausea and vomiting. Genitourinary: Positive for frequency. Negative for dysuria, flank pain, hematuria and urgency. Musculoskeletal: Positive for back pain. BP 124/80 Pulse 80 Temp 36.3 C (97.4 F) Resp 18 Wt 99.3 kg (219 lb) LMP 05/21/2022 (Within Days) SpO2 100% BMI 32.07 kg/m PAST MEDICAL HISTORY Diagnosis Date Abnormal Pap smear of cervix ascus cannot rule out high grade Diabetes mellitus type 2 in obese (HCC) Migraine headache Obesity PAST SURGICAL HISTORY Procedure Laterality Date SECTION HX 03/24/2013 CHOLECYSTECTOMY HX INSERTION OF IUD 2016 Mirena IUD removed 10/20/2020 KYLEENA IUD 10/20/2020 NEXPLANON INSERTION 05/10/2013 OSTECTOMY CALCANEUS SPUR W/WO PLNTAR FASCIAL RLS Left Dr. Jimenez REPAIR OF NASAL SEPTUM ALLERGIES Macadamia Nut Oil and Meloxicam MEDICATIONS lisinopril (ZESTRIL) 5 mg tablet Take 1 tablet by mouth once daily. metFORMIN ER (GLUMETZA) 500 mg 24 hr tablet Take 2 tablets by mouth twice daily with meals. flash glucose sensor (FREESTYLE EMILIA 2 SENSOR) kit 1 Each as directed. Type 2 diabetes uncontrolled. flash glucose sensor (FREESTYLE EMILIA 14 DAY SENSOR) kit Apply and use as directed. Dx: Uncontrolled type 2 diabetes without insulin. flash glucose scanning reader (FREESTYLE EMILIA 14 DAY READER) use as directed. Dx: Uncontrolled type 2 diabetes without insulin. ibuprofen (MOTRIN) 800 mg tablet take 1 tablet by mouth every 8 hours with food if needed for pain colestipol (COLESTID) 1 gram tablet Take 1 tablet by mouth once daily. For Diarrhea Post Gall Bladder Removal EPINEPHrine (EPIPEN) 0.3 mg/0.3 mL auto-injector Use for allergic reaction Lancets lancets Test blood sugar(s)2 times daily. Dx: uncontrolled type 2 DM insulin needles, DISPOSABLE, (BD INSULIN PEN NEEDLE UF) 31 gauge x 5/16" use once daily as directed ibuprofen (MOTRIN) 800 mg tablet Take 1 tablet by mouth every 8 hours as needed. FOR PAIN. famotidine (PEPCID) 40 mg tablet Take 40 mg by mouth as needed. semaglutide (OZEMPIC) 2 mg/dose (8 mg/3 mL) pen injector Inject 2 mg subcutaneously one time a week. Phenyleph-Shark Nsh-Todt-Equ (HEMORRHOIDAL) 0.25-3-12 % crea by RECTAL route twice daily. blood sugar diagnostic (BLOOD GLUCOSE TEST) test strip Test blood sugar(s) 2 times daily. Dx: uncontrolled type 2 DM (Patient not taking: Reported on 04/25/2022) FAMILY HISTORY Problem Relation Age of Onset No Known Problems Mother Cancer Father pancreatic and renal. No Known Problems Brother No Known Problems Maternal Grandmother Diabetes Maternal Grandfather Diabetes Paternal Grandfather No Known Problems Son Breast Cancer Maternal Aunt Cervical Cancer Paternal Aunt x2- and one cousin other (lymphomia) Other maternal cousin other (leukemia) Other cousin Social History Tobacco Use Smoking status: Never Smokeless tobacco: Never Vaping Use Vaping Use: Never used Substance Use Topics Alcohol use: Yes Comment: Rarely Drug use: No Objective Physical Exam Vitals and nursing note reviewed. Constitutional: Appearance: Normal appearance. Cardiovascular: Rate and Rhythm: Normal rate and regular rhythm. Heart sounds: Normal heart sounds. Pulmonary: Effort: Pulmonary effort is normal. No respiratory distress. Breath sounds: Normal breath sounds. No wheezing or rales. Abdominal: General: There is no distension. Palpations: There is no mass. Tenderness: There is no abdominal tenderness. There is right CVA tenderness. There is no left CVA tenderness or guarding. Musculoskeletal: Arms: Skin: General: Skin is warm and dry. Findings: No erythema or rash. Neurological: Mental Status: She is alert. ASSESSMENT/PLAN: 1. Urinary frequency - ICD9: 788.41, ICD10: R35.0 acute - UA positive for proteinuria (30) otherwise negative. - Send urine for culture - Patient education for prevention given - UA DIP, URINE (POC) - URINE CULTURE - take ibuprofen for back pain. Increase fluid intake. - Follow-up with your PCP in 3-5 days if symptoms have not improved or sooner if symptoms worsen - Discussed red flags and need for immediate medical evaluation if any occur. - Discussed supportive care treatment with fluids, rest and analgesia. - Discussed expected course of illness Yaquelin Ta APRN.GUM COOK documented in this encounterHolzer Health System04-24-2023 Miscellaneous Notes* Telephone Encounter - Yamile Washington LPN - 07/08/2022 10:52 AM EDT Candelaria Grant (Mcpherson: [id number]) - [id number] Ozempic (1 MG/DOSE) 4MG/3ML pen-injectors Outcome: Approved Created: June 25, 2022 Open Archive documented in this encounterHolzer Health System04-06-2023 History of Present illness Narrative* Polly Grant APRN.GUM COOK - 06/20/2022 2:39 PM EDT Chief Complaint Patient presents with: sinus pressure: Nasal cingestion, dizziness, certain ways moves her head or turns gets real dizzy HPI Candelaria Grant is a 37 year old female who presents here today for Above Complaints. Candelaria is an established patient of Dr. Carrillo, and myself. Concerns today... Started Friday with sinus pressure, congestion, intermittent dizziness and neck pain. Reports nasal drip down throat is significant. Pt feels it is getting into her chest. No known exposure to COVID. No sore throat. Was seen at chiropractor this weekend that did report tightness in R side of neck and noticed a swollen lymph node to pt. Reports last few antibiotics she has been on upset her stomach. Blood sugars have been well controlled and much improved. Pt concerned current infection may interfere with how well she has been doing with her DM. Past medical history, appointments, medications, allergies reviewed. Previous Medical History PAST MEDICAL HISTORY Diagnosis Date Abnormal Pap smear of cervix ascus cannot rule out high grade Diabetes mellitus type 2 in obese (HCC) Migraine headache Obesity Previous Surgical History PAST SURGICAL HISTORY Procedure Laterality Date SECTION HX 03/24/2013 CHOLECYSTECTOMY HX INSERTION OF IUD 2017 Mirena IUD removed 10/20/2020 KYLEENA IUD 10/20/2020 NEXPLANON INSERTION 05/10/2013 OSTECTOMY CALCANEUS SPUR W/WO PLNTAR FASCIAL RLS Left Dr. Suppan REPAIR OF NASAL SEPTUM Family History FAMILY HISTORY Problem Relation Age of Onset No Known Problems Mother Cancer Father pancreatic and renal. No Known Problems Brother No Known Problems Maternal Grandmother Diabetes Maternal Grandfather Diabetes Paternal Grandfather No Known Problems Son Breast Cancer Maternal Aunt Cervical Cancer Paternal Aunt x2- and one cousin other (lymphomia) Other maternal cousin other (leukemia) Other cousin Patient Allergies ALLERGIES Allergen Reactions Macadamia Nut Oil Hives, Swelling, Shortness of Breath Meloxicam Intolerance Headache Current Medications Current Outpatient Medications on File Prior to Visit Medication Sig semaglutide (OZEMPIC) 2 mg/dose (8 mg/3 mL) pen injector Inject 2 mg subcutaneously one time a week. lisinopril (ZESTRIL) 5 mg tablet Take 1 tablet by mouth once daily. Phentermine HCl (ADIPEX-P) 37.5 mg capsule Take 1 capsule by mouth once daily for 30 days. metFORMIN ER (GLUMETZA) 500 mg 24 hr tablet Take 2 tablets by mouth twice daily with meals. flash glucose sensor (FREESTYLE EMILIA 2 SENSOR) kit 1 Each as directed. Type 2 diabetes uncontrolled. flash glucose sensor (FREESTYLE EMILIA 14 DAY SENSOR) kit Apply and use as directed. Dx: Uncontrolled type 2 diabetes without insulin. flash glucose scanning reader (FREESTYLE EMILIA 14 DAY READER) use as directed. Dx: Uncontrolled type 2 diabetes without insulin. ibuprofen (MOTRIN) 800 mg tablet take 1 tablet by mouth every 8 hours with food if needed for pain colestipol (COLESTID) 1 gram tablet Take 1 tablet by mouth once daily. For Diarrhea Post Gall Bladder Removal EPINEPHrine (EPIPEN) 0.3 mg/0.3 mL auto-injector Use for allergic reaction Lancets lancets Test blood sugar(s)2 times daily. Dx: uncontrolled type 2 DM insulin needles, DISPOSABLE, (BD INSULIN PEN NEEDLE UF) 31 gauge x 5/16" use once daily as directed ibuprofen (MOTRIN) 800 mg tablet Take 1 tablet by mouth every 8 hours as needed. FOR PAIN. famotidine (PEPCID) 40 mg tablet Take 40 mg by mouth as needed. Phenyleph-Shark Jzf-Npto-Gma (HEMORRHOIDAL) 0.25-3-12 % crea by RECTAL route twice daily. blood sugar diagnostic (BLOOD GLUCOSE TEST) test strip Test blood sugar(s) 2 times daily. Dx: uncontrolled type 2 DM (Patient not taking: Reported on 04/25/2022) No current facility-administered medications on file prior to visit. Social History Social History Tobacco Use Smoking status: Never Smokeless tobacco: Never Vaping Use Vaping Use: Never used Substance Use Topics Alcohol use: Yes Comment: Rarely Drug use: No REVIEW OF SYSTEMS: as above Reviewed relevant PMHx, PSHx, Social Hx, current medications and allergies. Review of Symptoms REVIEW OF SYSTEMS See HPI. EXAM: BP 130/80 (BP Site: Left Arm, BP Position: Sitting, BP Cuff Size: Large Adult) Pulse 68 Resp 14 Wt 100.2 kg (220 lb 12.8 oz) LMP 04/21/2022 (Exact Date) BMI 32.33 kg/m General Appearance: Well appearing, alert, in no acute distress, well-hydrated, well nourished.. Skin: Skin color, texture, turgor normal, no suspicious rashes or lesions. Head: Normocephalic, no masses, lesions, tenderness or abnormalities. Eyes: Anicteric sclera. Pupils are equally round and reactive to light. Extraocular movements are intact. . Ears: External ears normal, canals clear. Nose/Sinuses: Nares normal, septum midline, mucosa normal, no drainage or sinus tenderness. Oropharynx: Lips, mucosa, and tongue normal, teeth and gums normal, oropharynx normal and Positive findings: post nasal drip. Neck: Supple, no adenopathy; thyroid symmetric, normal size, no bruits, Negative findings: no asymmetry, masses, or scars, no adenopathy. Back:no pain to palpation of vertebrae, good flexion and extension, good range of motion, no muscletenderness, reflexes are 2+ and symmetric, motor and sensory appear to be normal, negative SLR test, no evidence of scoliosis Lungs: Lungs clear to auscultation. No wheezing, rhonchi, rales.. Heart: RRR without murmur, gallop, or rubs. No ectopy. Health Maintenance List DILATED RETINAL EXAM due on 03/17/2022 DTAP,TDAP,TD(1 - Tdap) due on 08/29/2022 PNEUMOCOCCAL(2 - PCV) due on 08/29/2022 COVID-19 VACCINE(1) due on 02/13/2023 DEPRESSION ASSESSMENT due on 03/16/2023 HBA1C due on 08/16/2022 INFLUENZA(Season Ended) due on 11/15/2022 LDL CHOLESTEROL due on 11/30/2022 URINE ALBUMIN:CREATININE RATIO due on 02/13/2023 DIABETIC FOOT EXAM due on 02/13/2023 ANNUAL PCP TEAM CHRONIC DISEASE VISIT due on 06/08/2023 PAP TESTING due on 04/02/2027 HPV TESTING due on 04/02/2027 HEPATITIS C SCREENING Completed HIV SCREENING Completed ASSESSMENT/PLAN: 1. Acute non-recurrent sinusitis, unspecified location - ICD9: 461.9, ICD10: J01.90 - Will begin treatment with as per antibiotic as written, see orders - diflucan if needed for yeast infection. - The patient should also be given OTC decongestants prn, OTC cough and cold meds as needed, warm salt water gargles, throat lozenges and/or OTC throat spray as needed, and nasal saline gtts and suction prn for the first 5-7 days of treatment. - Supportive care with plenty of fluids, rest, and analgesia prn. - Follow up in 3-5 days if symptoms persist or worsen. - AZITHROMYCIN 250 MG TABLET - FLUCONAZOLE 150 MG TABLET RTO if symptoms worsen. Prescription instructions reviewed with patient as applicable. Potential red flag symptoms discussed with the patient. Reviewed appropriate action plan to take if red flag symptoms occur. Patient agreeable to treatment plan. Polly Quintero APRN.KEEGAN [id number] [place] [address] documented in this encounterHolzer Health System03-31-2023 Miscellaneous Notes* Telephone Encounter - Jaja Padron LPN - 06/14/2022 10:43 AM EDT Patient notified and verbalized understanding of instructions given.Jaja Padron LPN * Telephone Encounter - Jaja Padron LPN - 06/14/2022 10:43 AM EDT ----- Message from Yaquelin Ta APRN.CNP sent at 06/14/2022 7:19 AM EDT ----- Urine culture did not show any evidence of infection. Recommend follow up with PCP to ensure hematuria has resolved. Yaquelin Ta CNP documented in this encounterHolzer Health System03-29-2023 Instructions* Patient Instructions* Yaquelin Ta APRN.CNP - 06/12/2022 6:25 PM EDT ASSESSMENT/PLAN: 1. Flu-like symptoms - ICD9: 780.99, ICD10: R68.89 (primary diagnosis) - COVID WITH FLUA+B, ROUTINE 2. Dark urine - ICD9: 791.9, ICD10: R82.998 - UA DIP, URINE (POC) - URINE CULTURE - increase fluid intake. Monitor blood sugar closely. - Follow-up with your PCP in 3-5 days if symptoms have not improved or sooner if symptoms worsen - Discussed red flags and need for immediate medical evaluation if any occur. - Discussed supportive care treatment with fluids, rest and analgesia. - Discussed expected course of illness Yaquelin Ta APRN.CNP documented in this encounterHolzer Health System03-29-2023 History of Present illness Narrative* Yaquelin Ta APRN.CNP - 06/12/2022 6:09 PM EDT Subjective Diarrhea Associated symptoms include abdominal pain, chills, headaches and myalgias. Pertinent negatives include no vomiting and no cough. Candelaria Grant is a 37 year old female who presents with 3 days ofbody aches, stomach ache, headaches, runny nose, and nausea. Notes urine was bright yellow the other day. Denies fever. She has had some chills. She has taken ibuprofen and excedrin for headaches. Review of Systems Constitutional: Positive for chills and malaise/fatigue. Negative for fever. HENT: Negative for congestion, ear pain and sore throat. Respiratory: Negative for cough. Cardiovascular: Negative. Gastrointestinal: Positive for abdominal pain and nausea. Negative for diarrhea and vomiting. Genitourinary: Negative for dysuria, frequency, hematuria and urgency. Musculoskeletal: Positive for myalgias. Neurological: Positive for headaches. BP 118/84 Pulse 103 Temp 36.2 C (97.1 F) Resp 21 Wt 100.5 kg (221 lb 9.6 oz) LMP 04/21/2022 (Exact Date) SpO2 98% BMI 32.45 kg/m PAST MEDICAL HISTORY Diagnosis Date Abnormal Pap smear of cervix ascus cannot rule out high grade Diabetes mellitus type 2 in obese (HCC) Migraine headache Obesity PAST SURGICAL HISTORY Procedure Laterality Date SECTION HX 03/24/2013 CHOLECYSTECTOMY HX INSERTION OF IUD 2016 Mirena IUD removed 10/20/2020 KYLEENA IUD 10/20/2020 NEXPLANON INSERTION 05/10/2013 OSTECTOMY CALCANEUS SPUR W/WO PLNTAR FASCIAL RLS Left Dr. Jimenez REPAIR OF NASAL SEPTUM ALLERGIES Macadamia Nut Oil and Meloxicam MEDICATIONS semaglutide (OZEMPIC) 2 mg/dose (8 mg/3 mL) pen injector Inject 2 mg subcutaneously one time a week. lisinopril (ZESTRIL) 5 mg tablet Take 1 tablet by mouth once daily. Phentermine HCl (ADIPEX-P) 37.5 mg capsule Take 1 capsule by mouth once daily for 30 days. fluocinonide-silicone,adhesive 0.1 % kit Apply 1 Each to affected area as needed. metFORMIN ER (GLUMETZA) 500 mg 24 hr tablet Take 2 tablets by mouth twice daily with meals. flash glucose sensor (FREESTYLE EMILIA 2 SENSOR) kit 1 Each as directed. Type 2 diabetes uncontrolled. flash glucose sensor (FREESTYLE EMILIA 14 DAY SENSOR) kit Apply and use as directed. Dx: Uncontrolled type 2 diabetes without insulin. flash glucose scanning reader (FREESTYLE EMILIA 14 DAY READER) use as directed. Dx: Uncontrolled type 2 diabetes without insulin. ibuprofen (MOTRIN) 800 mg tablet take 1 tablet by mouth every 8 hours with food if needed for pain colestipol (COLESTID) 1 gram tablet Take 1 tablet by mouth once daily. For Diarrhea Post Gall Bladder Removal EPINEPHrine (EPIPEN) 0.3 mg/0.3 mL auto-injector Use for allergic reaction Lancets lancets Test blood sugar(s)2 times daily. Dx: uncontrolled type 2 DM insulin needles, DISPOSABLE, (BD INSULIN PEN NEEDLE UF) 31 gauge x 5/16" use once daily as directed ibuprofen (MOTRIN) 800 mg tablet Take 1 tablet by mouth every 8 hours as needed. FOR PAIN. famotidine (PEPCID) 40 mg tablet Take 40 mg by mouth as needed. Phenyleph-Shark Xza-Havx-Xoa (HEMORRHOIDAL) 0.25-3-12 % crea by RECTAL route twice daily. blood sugar diagnostic (BLOOD GLUCOSE TEST) test strip Test blood sugar(s) 2 times daily. Dx: uncontrolled type 2 DM (Patient not taking: Reported on 04/25/2022) FAMILY HISTORY Problem Relation Age of Onset No Known Problems Mother Cancer Father pancreatic and renal. No Known Problems Brother No Known Problems Maternal Grandmother Diabetes Maternal Grandfather Diabetes Paternal Grandfather No Known Problems Son Breast Cancer Maternal Aunt Cervical Cancer Paternal Aunt x2- and one cousin other (lymphomia) Other maternal cousin other (leukemia) Other cousin Social History Tobacco Use Smoking status: Never Smokeless tobacco: Never Vaping Use Vaping Use: Never used Substance Use Topics Alcohol use: Yes Comment: Rarely Drug use: No Objective Physical Exam Vitals and nursing note reviewed. Constitutional: General: She is not in acute distress. Appearance: Normal appearance. She is not toxic-appearing. HENT: Right Ear: Tympanic membrane, ear canal and external ear normal. Left Ear: Tympanic membrane, ear canal and external ear normal. Nose: Nose normal. Mouth/Throat: Mouth: Mucous membranes are moist. Pharynx: Oropharynx is clear. Uvula midline. No oropharyngeal exudate or posterior oropharyngeal erythema. Cardiovascular: Rate and Rhythm: Normal rate and regular rhythm. Heart sounds: Normal heart sounds. Pulmonary: Effort: Pulmonary effort is normal. No respiratory distress. Breath sounds: Normal breath sounds. No wheezing or rales. Musculoskeletal: Cervical back: Neck supple. Lymphadenopathy: Cervical: No cervical adenopathy. Skin: General: Skin is warm and dry. Findings: No erythema or rash. Neurological: Mental Status: She is alert. Urine Dip Result: Leukocytes: negative Nitrates: Negative Urobilinogen: normal Protein: 100++ pH: 5.0 Blood: trace Specific [place]: 1,030 Ketones: moderate 40 Bilirubin: small + Glucose: trace, 03/26 = 100 ASSESSMENT/PLAN: 1. Flu-like symptoms - ICD9: 780.99, ICD10: R68.89 (primary diagnosis) - COVID WITH FLUA+B, ROUTINE 2. Dark urine - ICD9: 791.9, ICD10: R82.998 - UA DIP, URINE (POC) - URINE CULTURE - increase fluid intake. Monitor blood sugar closely. - Follow-up with your PCP in 3-5 days if symptoms have not improved or sooner if symptoms worsen - Discussed red flags and need for immediate medical evaluation if any occur. - Discussed supportive care treatment with fluids, rest and analgesia. - Discussed expected course of illness Yaquelin Ta APRN.KEEGAN documented in this encounterHolzer Health System03-24-2023 History of Present illness Narrative* Polly Grant APRN.CNP - 06/07/2022 8:30 AM EDT Chief Complaint Patient presents with: Follow Up: On blood sugars , would like to go back on adipex if can HPI Candelaria Grant is a 37 year old female who presents here today for Above Complaints. Candelaria is an established patient of Dr. Gerardo DO and myself. Concerns today.. Per last visit 3 weeks ago: ASSESSMENT/PLAN: 1. Uncontrolled type 2 diabetes mellitus with hyperglycemia (HCC) - ICD9: 250.02, ICD10: E11.65 Switch from trulicity to Ozempic d/t medication shortage. Start ozempic 1 mg weekly. RTO in 3 weeks, if tolerating well, will likely need to increase dosage. Switch to metformin extended release to help with side effects of diarrhea. Increase metformin regimen. Start with 2 tablets in the morning and 1 tablet with dinner. If tolerating well after 2 weeks, increase to 2 tablets BID with meals. RTO in 3 weeks as discussed and will re-assess. - Uncontrolled - Worsening control - Blood glucose monitoring on a three times daily schedule - Counseled on healthy diet and regular exercise - Follow up in 3 weeks, sooner should any other issues arise. - HEMOGLOBIN A1C (POC) - OZEMPIC 1 MG/DOSE (4 MG/3 ML) SUBCUTANEOUS PEN INJECTOR - METFORMIN ER 500 MG 24 HR TABLET,EXTENDED RELEASE 2. Elevated BP without diagnosis of hypertension - ICD9: 796.2, ICD10: R03.0 - Encouraged dietary sodium restriction/DASH diet - Recommended regular aerobic exercise. - Recommend home blood pressure monitoring, to bring results in on next visit - Encouraged avoidance of excessive alcohol intake - Discussed need and benefit for weight loss. - Follow up in 1 month for BP recheck. - Goal of BP <130/80 Currently today.. Has been on ozempic x 3 weeks. Vision changes are back to normal. Overall feels much better day to day. Takes ozempic on Friday at 430 pm. Can tell by end of week that sugars get a little higher when next dose is close to being due. Checking BG readings at home, has As It Is emilia that she wears constantly. Does report difficulties with adhesion and it falls off frequently. Lowest BG reading was 116, highest reading was 253. HgA1c reading 3 weeks ago was 9.6. BP --- Slowly creeping up. She denies chest pain, shortness of breath, palpitations, dizziness, leg edema, headaches, or vision changes. Last 14 Encounter BP Readings: Date: BP: 06/07/2022 140/88 05/16/2022 142/90 05/12/2022 140/78 04/25/2022 134/86 04/08/2022 124/82 04/02/2022 132/90 04/02/2022 126/80 03/14/2022 124/88 03/06/2022 132/86 02/13/2022 120/80 01/20/2022 138/90 11/30/2021 130/78 11/16/2021 122/86 10/05/2021 120/78 Weight management-- Would to go back on adipex if able. Had good results when on Adipex last time. Trying to eat healthier day to day and still struggling to lose weight. Even being on Ozempic, patient noticed a few lbsof weight loss but feels like this is minimal due to how much she is changing in her lifestyle to try to loss weight. Initial weight today: 228 lbs Past medical history, appointments, medications, allergies reviewed. Previous Medical History PAST MEDICAL HISTORY Diagnosis Date Abnormal Pap smear of cervix ascus cannot rule out high grade Diabetes mellitus type 2 in obese (HCC) Migraine headache Obesity Previous Surgical History PAST SURGICAL HISTORY Procedure Laterality Date SECTION HX 03/24/2013 CHOLECYSTECTOMY HX INSERTION OF IUD 2017 Mirena IUD removed 10/20/2020 KYLEENA IUD 10/20/2020 NEXPLANON INSERTION 05/10/2013 OSTECTOMY CALCANEUS SPUR W/WO PLNTAR FASCIAL RLS Left Dr. Jimenez REPAIR OF NASAL SEPTUM Family History FAMILY HISTORY Problem Relation Age of Onset No Known Problems Mother Cancer Father pancreatic and renal. No Known Problems Brother No Known Problems Maternal Grandmother Diabetes Maternal Grandfather Diabetes Paternal Grandfather No Known Problems Son Breast Cancer Maternal Aunt Cervical Cancer Paternal Aunt x2- and one cousin other (lymphomia) Other maternal cousin other (leukemia) Other cousin Patient Allergies ALLERGIES Allergen Reactions Macadamia Nut Oil Hives, Swelling, Shortness of Breath Meloxicam Intolerance Headache Current Medications Current Outpatient Medications on File Prior to Visit Medication Sig semaglutide (OZEMPIC) 1 mg/dose (4 mg/3 mL) pen Inject 1 mg subcutaneously one time a week. metFORMIN ER (GLUMETZA) 500 mg 24 hr tablet Take 2 tablets by mouth twice daily with meals. flash glucose sensor (FREESTYLE EMILIA 2 SENSOR) kit 1 Each as directed. Type 2 diabetes uncontrolled. flash glucose sensor (FREESTYLE EMILIA 14 DAY SENSOR) kit Apply and use as directed. Dx: Uncontrolled type 2 diabetes without insulin. flash glucose scanning reader (FREESTYLE EMILIA 14 DAY READER) use as directed. Dx: Uncontrolled type 2 diabetes without insulin. ibuprofen (MOTRIN) 800 mg tablet take 1 tablet by mouth every 8 hours with food if needed for pain colestipol (COLESTID) 1 gram tablet Take 1 tablet by mouth once daily. For Diarrhea Post Gall Bladder Removal EPINEPHrine (EPIPEN) 0.3 mg/0.3 mL auto-injector Use for allergic reaction Lancets lancets Test blood sugar(s)2 times daily. Dx: uncontrolled type 2 DM insulin needles, DISPOSABLE, (BD INSULIN PEN NEEDLE UF) 31 gauge x 5/16" use once daily as directed ibuprofen (MOTRIN) 800 mg tablet Take 1 tablet by mouth every 8 hours as needed. FOR PAIN. famotidine (PEPCID) 40 mg tablet Take 40 mg by mouth as needed. dulaglutide (TRULICITY) 1.5 mg/0.5 mL pen injector Inject 3 mg subcutaneously one time a week. (Patient not taking: Reported on 05/12/2022) Phenyleph-Shark Uzj-Wtgi-Qfr (HEMORRHOIDAL) 0.25-3-12 % crea by RECTAL route twice daily. blood sugar diagnostic (BLOOD GLUCOSE TEST) test strip Test blood sugar(s) 2 times daily. Dx: uncontrolled type 2 DM (Patient not taking: Reported on 04/25/2022) No current facility-administered medications on file prior to visit. Social History Social History Tobacco Use Smoking status: Never Smokeless tobacco: Never Vaping Use Vaping Use: Never used Substance Use Topics Alcohol use: Yes Comment: Rarely Drug use: No REVIEW OF SYSTEMS: as above Reviewed relevant PMHx, PSHx, Social Hx, current medications and allergies. Review of Symptoms REVIEW OF SYSTEMS See HPI. All other systems are negative. EXAM: BP 140/88 (BP Site: Left Arm, BP Position: Sitting, BP Cuff Size: Large Adult) Pulse 72 Resp 16 Wt 103.6 kg (228 lb 6.4 oz) LMP 04/21/2022 (Exact Date) BMI 33.45 kg/m General Appearance: Well appearing, alert, in no acute distress, well-hydrated, well nourished.. Skin: Skin color, texture, turgor normal, no suspicious rashes or lesions. Head: Normocephalic, no masses, lesions, tenderness or abnormalities. Lungs: Lungs clear to auscultation. No wheezing, rhonchi, rales.. Heart: RRR without murmur, gallop, or rubs. No ectopy. Abdomen: Normal abdominal exam, Abdomen soft, non-tender. Bowel sounds normal. No masses, organomegaly. Health Maintenance List DILATED RETINAL EXAM due on 03/17/2022 DTAP,TDAP,TD(1 - Tdap) due on 08/29/2022 PNEUMOCOCCAL(2 - PCV) due on 08/29/2022 INFLUENZA(1) due on 09/13/2022 COVID-19 VACCINE(1) due on 02/13/2023 DEPRESSION ASSESSMENT due on 03/16/2023 HBA1C due on 08/16/2022 LDL CHOLESTEROL due on 11/30/2022 URINE ALBUMIN:CREATININE RATIO due on 02/13/2023 DIABETIC FOOT EXAM due on 02/13/2023 ANNUAL PCP TEAM CHRONIC DISEASE VISIT due on 05/17/2023 PAP TESTING due on 04/02/2027 HPV TESTING due on 04/02/2027 HEPATITIS C SCREENING Completed HIV SCREENING Completed ASSESSMENT/PLAN: 1. Uncontrolled type 2 diabetes mellitus with hyperglycemia (HCC) - ICD9: 250.02, ICD10: E11.65 (primary diagnosis) - Improving control - Continue current medications - Increase semaglutide (Ozempic) dosage to 2 mg SQ weekly once current RX is complete. Adhesive kit to help adhere emilia to skin. - ALBUMIN/CREAT RATIO RND UR - SEMAGLUTIDE 2 MG/DOSE (8 MG/3 ML) SUBCUTANEOUS PEN INJECTOR - FLUOCINONIDE 0.1 % TOPICAL CREAM-ADHESIVE SILICONE KIT - COMP METABOLIC PANEL --- will check fasting blood glucose. 2. Elevated BP without diagnosis of hypertension - ICD9: 796.2, ICD10: R03.0 Start on low dose lisinopril 5 mg daily -- this will help protect kidneys d/t poorly control DM as well as help with mild HTN. - Encouraged dietary sodium restriction/DASH diet - Recommended regular aerobic exercise. - Recommend home blood pressure monitoring, to bring results in on next visit - Follow up in 1 month for BP recheck. - Goal of BP <130/80 - LISINOPRIL 5 MG TABLET - COMP METABOLIC PANEL - CBC + DIFF 3. Obesity (BMI 30-39.9) - ICD9: 278.00, ICD10: E66.9 Stable - Behavioral intervention, - Pharmacological intervention, - Eat well program, and - Add Phentermine Pt aware of new guidelines in [place] for adipex regimen year round. Pt aware of needed 5% weight loss in the first 3 months to continue on regimen. Pt aware of needed q3 month in office appointments. - COMP METABOLIC PANEL - CBC + DIFF - PHENTERMINE 37.5 MG CAPSULE PDMP website checked and validated. All prescriptions have been APPROPRIATELY filled. No suspiciousactivity was identified. 06/07/2022 by Polly Grant APRN.GUM COOK RTO in 1 months, sooner if needed. Prescription instructions reviewed with patient as applicable. Potential red flag symptoms discussed with the patient. Reviewed appropriate action plan to take if red flag symptoms occur. Patient agreeable to treatment plan. Polly Quintero APRN.GUM COOK [address] [place] [address] documented in this encounterHolzer Health System03-16-2023 Miscellaneous Notes* Telephone Encounter - Yamile Washington LPN - 05/30/2022 1:29 PM EDT Rec'd approval from [facility] 05/28/22 to 05/27/2023. Pt notified via my chart and [facility] * Telephone Encounter - Yamile Washignton LPN - 05/28/2022 11:57 AM EDT Paper PA form not appropriate. Completed via [facility] Candelaria Grant (Mcpherson: [id number]) - [id number] Ozempic (1 MG/DOSE) 4MG/3ML pen-injectors Status: Sent to Plan Created: May 23, 2022 Sent: May 28, 2022 * Telephone Encounter - Yamile Washington LPN - 05/24/2022 1:19 PM EST PA signed and faxed. * Telephone Encounter - Yamile Washington LPN - 05/23/2022 2:07 PM EST PA form completed and to provider to review and sign. * Telephone Encounter - Helene Bishop - 05/22/2022 5:49 PM EST Please see pt message Helene Bishop * Telephone Encounter - Helene Bishop - 05/22/2022 12:17 PM EST Please see patient message Helene Bishop documented in this encounterHolzer Health System03-02-2023 Hospital Discharge instructions Patient Education 05/16/2022 07:32:43 Headache, Unspecified Headache, Unspecified A number of things can cause headaches. The cause of your headache isn t clear. But it doesn t seemto be a sign of any serious illness. Headache affects almost everyone at some time. It is the most common reason people miss days from work or school. You could have a tension headache or a migraine headache. Stress can cause a tension headache. This can happen if you tense the muscles of your shoulders, neck, and scalp without knowing it. If this stress lasts long enough, you may develop a tension headache. It is not clear why migraines occur, but certain things called" triggers" can raise the risk of having a migraine attack. Migraine triggers may include emotional stress or depression, or by hormone changes during the menstrual cycle. Other triggers include control pills and other medicines, alcohol or caffeine, foods with tyramine (such as aged cheese, wine), eyestrain, weather changes, missed meals, and lack of sleep or oversleeping. Other causes of headache include: Viral illness with high fever Head injury with concussion Sinus, ear, or throat infection Dental pain and jaw joint (TMJ) pain More serious but less common causes of headache include stroke, brain hemorrhage, brain tumor, meningitis, and encephalitis. Home care Follow these tips when taking care of yourself at home: Don t drive yourself home if you were given pain medicine for your headache. Instead, have someone else drive you home. Try to sleep when you get home. You should feel much better when you wake up. Apply heat to the back of your neck to ease a neck muscle spasm. Take care of a migraine headache by putting an ice pack on your forehead or at the base of your skull. If you have nausea or vomiting, eat a light diet until your headache eases. If you have a migraine headache, use sunglasses when in the daylight or around bright indoor lighting until your symptoms get better. Bright glaring light can make this type of headache worse. Follow-up care Follow up with your healthcare provider, or as advised. Talk with your provider if you have frequent headaches. He or she can help figure out a treatment plan. By knowing the earliest signs of headache, and starting treatment right away, you may be able to stop the pain yourself. When to seek medical advice Call your healthcare provider right away if any of these occur: Your head pain suddenly gets worse after sexual intercourse or strenuous activity Your head pain doesn t get better within 24 hours You aren t able to keep liquids down (repeated vomiting) Fever of 100.4 F (38 C) or higher, or as directed by your healthcare provider Stiff neck Extreme drowsiness, confusion, or fainting Dizziness or dizziness with spinning sensation (vertigo) Weakness in an arm or leg or one side of your face You have trouble talking or seeing [id number] [employer] [place] [address]. All rights reserved. This information is not intended as a substitute for professional medical care. Always follow yourhealthcare professional's instructions. 05/16/2022 07:32:23 Diabetes with High Blood Sugar Diabetes with High Blood Sugar You have been treated for high blood sugar (hyperglycemia). This may be because of an infection or other illness. Or it may be from eating too many sweets or starches. Or it may be from not taking enough insulin or other diabetes medicine. Home care Check your blood sugar level at least 2 times a day. Write it down the results. Do this before breakfast and before dinner. If you take insulin, also write down your routine insulin dose. Note any other doses you needed based on your sliding scale or as advised by your healthcare provider. Do this for the next 3 to 5 days. High blood sugar may cause symptoms that you can learn to spot. These include: Peeing often Thirst Headache Breath that smells fruity Nausea or vomiting Belly pain If you have symptoms of high blood sugar, use a blood or urine test to find out what your blood sugar level is. If it is above your usual range, use the sliding scale regular insulin dose from your healthcare provider. Call your provider for advice if you were not given a range for your insulin dose. If your blood sugar is over 240 mg/dL, check your urine for ketones. Follow-up care Follow up with your healthcare provider, or as advised. You may need to meet with your provider in the next week. You will likely look at your blood sugar records together. You may need to change your dose of insulin or other diabetes medicine. When to seek medical advice Call your healthcare provider right away if these occur: Symptoms of high blood sugar that don't get better with the treatment your provider advised. This is especially true if you also have ketones in your urine. Blood sugar over 300 mg/dl. If you can t reach your healthcare provider, go to a hospital emergencyroom or urgent care center. Call 911 Call 911 if you have any of the following: Confusion Dizziness, lightheadedness, or loss of consciousness Shortness of breath Chest pain Weakness of an arm, leg, or one side of the face Sudden trouble with speech or vision [id number] [place] [address]. All rights reserved. This information is not intended as a substitute for professional medical care. Always follow yourhealthcare professional's instructions. Follow Up Care 05/16/2022 06:34:21 With:GIGI CARRILLO Address: [address] [place] [id number] Business (1) When:Within 1 Day(s) Comments:Follow-up as scheduled with your doctor this morning.Rest in a cool, dark, quiet room.Monitor your blood sugars, keep a log of the readings to show your doctor.Use Tylenol or Motrin for headaches as needed.Return to the ED if symptoms worsen. [facility] 03-02-2023 History of Present illness Narrative* Polly Grant APRN.GUM COOK - 05/16/2022 9:20 AM EST Chief Complaint Patient presents with: er f/up: Was taken from work on Friday sugars high then went this am again sugars high unable to get trulicity asking about ozempic no troble with pharmacys getting this HPI Candelaria Grant is a 37 year old female who presents here today for Above Complaints. Candelaria is an established patient of Dr. Gerardo SAUNDERS and myself. Concerns today... Express care follow-up --- Seen at [facility] on 05/12/22 d/t vaginal itching and discharge. Per note: She is an uncontrolleddiabetic and when her sugars are high she tends to get vaginal yeast infections. Her sugars have been in the 300s the past week. She has been unable to fill the Trulicity that was prescribed due to the pharmacy not being able to get it in. Given diflucan for vaginal yeast infection. Told to follow up with PCP about blood sugars. Currently... Went to ER [facility] on Friday from work d/t unable to think straight. Blood glucose was in the 300s. Ergave pt 10 units of insulin and IV fluids. Blood sugar came down, symptoms improved and pt was discharged. Went to ER this morning as well for the same reason. Blood glucose was 348 in ER. Today gave pt 5 units of insulin and Toradol for headache. BG improved and pt discharged. Lab work unremarkable beside blood glucose at each ER visit. Pt was taking Trulcity 1.5 mg, we increased to 3 mg d/t poor DM control and she was never able to get increased dosage. Has been without medication x over 1 month. A1C 9.6% today in office. Patient's last HgA1C was 8.4 -- 3 months ago. Current regimen: Trulicity 3 mg weekly, metformin 500 mg BID. Tried increased dosage of metformin but caused diarrhea -- pt believes that may be related to gallbladder removal more than medication. Willing to try increase again. Checking sugars: Yes, has Leonkacom. Readings have ranged from 240-300s the last few weeks. Yeast infection improving with medication. Past medical history, appointments, medications, allergies reviewed. Previous Medical History PAST MEDICAL HISTORY Diagnosis Date Abnormal Pap smear of cervix ascus cannot rule out high grade Diabetes mellitus type 2 in obese (HCC) Migraine headache Obesity Previous Surgical History PAST SURGICAL HISTORY Procedure Laterality Date SECTION HX 03/24/2013 CHOLECYSTECTOMY HX INSERTION OF IUD 2017 Mirena IUD removed 10/20/2020 KYLEENA IUD 10/20/2020 NEXPLANON INSERTION 05/10/2013 OSTECTOMY CALCANEUS SPUR W/WO PLNTAR FASCIAL RLS Left Dr. Jimenez REPAIR OF NASAL SEPTUM Family History FAMILY HISTORY Problem Relation Age of Onset No Known Problems Mother Cancer Father pancreatic and renal. No Known Problems Brother No Known Problems Maternal Grandmother Diabetes Maternal Grandfather Diabetes Paternal Grandfather No Known Problems Son Breast Cancer Maternal Aunt Cervical Cancer Paternal Aunt x2- and one cousin other (lymphomia) Other maternal cousin other (leukemia) Other cousin Patient Allergies ALLERGIES Allergen Reactions Macadamia Nut Oil Hives, Swelling, Shortness of Breath Meloxicam Intolerance Headache Current Medications Current Outpatient Medications on File Prior to Visit Medication Sig dulaglutide (TRULICITY) 1.5 mg/0.5 mL pen injector Inject 3 mg subcutaneously one time a week. (Patient not taking: Reported on 05/12/2022) flash glucose sensor (FREESTYLE EMILIA 2 SENSOR) kit 1 Each as directed. Type 2 diabetes uncontrolled. flash glucose sensor (FREESTYLE EMILIA 14 DAY SENSOR) kit Apply and use as directed. Dx: Uncontrolled type 2 diabetes without insulin. flash glucose scanning reader (FREESTYLE EMILIA 14 DAY READER) use as directed. Dx: Uncontrolled type 2 diabetes without insulin. metFORMIN (GLUCOPHAGE) 500 mg tablet Take 1 tablet by mouth twice daily with meals. . ibuprofen (MOTRIN) 800 mg tablet take 1 tablet by mouth every 8 hours with food if needed for pain Phenyleph-Shark Sch-Fmxh-Euc (HEMORRHOIDAL) 0.25-3-12 % crea by RECTAL route twice daily. colestipol (COLESTID) 1 gram tablet Take 1 tablet by mouth once daily. For Diarrhea Post Gall Bladder Removal EPINEPHrine (EPIPEN) 0.3 mg/0.3 mL auto-injector Use for allergic reaction Lancets lancets Test blood sugar(s)2 times daily. Dx: uncontrolled type 2 DM insulin needles, DISPOSABLE, (BD INSULIN PEN NEEDLE UF) 31 gauge x 5/16" use once daily as directed blood sugar diagnostic (BLOOD GLUCOSE TEST) test strip Test blood sugar(s) 2 times daily. Dx: uncontrolled type 2 DM (Patient not taking: Reported on 04/25/2022) ibuprofen (MOTRIN) 800 mg tablet Take 1 tablet by mouth every 8 hours as needed. FOR PAIN. famotidine (PEPCID) 40 mg tablet Take 40 mg by mouth as needed. No current facility-administered medications on file prior to visit. Social History Social History Tobacco Use Smoking status: Never Smokeless tobacco: Never Vaping Use Vaping Use: Never used Substance Use Topics Alcohol use: Yes Comment: Rarely Drug use: No REVIEW OF SYSTEMS: as above Reviewed relevant PMHx, PSHx, Social Hx, current medications and allergies. Review of Symptoms REVIEW OF SYSTEMS See HPI. EXAM: BP 142/90 (BP Site: Left Arm, BP Position: Sitting, BP Cuff Size: Large Adult) Pulse 87 Resp 14 Wt 104.7 kg (230 lb 12.8 oz) LMP 04/21/2022 (Exact Date) SpO2 99% BMI 33.80 kg/m General Appearance: Well appearing, alert, in no acute distress, well-hydrated, well nourished.. Skin: Skin color, texture, turgor normal, no suspicious rashes or lesions. Head: Normocephalic, no masses, lesions, tenderness or abnormalities. Lungs: Lungs clear to auscultation. No wheezing, rhonchi, rales.. Heart: RRR without murmur, gallop, or rubs. No ectopy. Abdomen: Normal abdominal exam, Abdomen soft, non-tender. Bowel sounds normal. No masses, organomegaly. Health Maintenance List DILATED RETINAL EXAM due on 03/17/2022 DEPRESSION ASSESSMENT due on 03/17/2022 HBA1C due on 05/14/2022 DTAP,TDAP,TD(1 - Tdap) due on 08/29/2022 PNEUMOCOCCAL(2 - PCV) due on 08/29/2022 INFLUENZA(1) due on 09/13/2022 COVID-19 VACCINE(1) due on 02/13/2023 LDL CHOLESTEROL due on 11/30/2022 URINE ALBUMIN:CREATININE RATIO due on 02/13/2023 DIABETIC FOOT EXAM due on 02/13/2023 ANNUAL PCP TEAM CHRONIC DISEASE VISIT due on 04/02/2023 PAP TESTING due on 04/02/2027 HPV TESTING due on 04/02/2027 HEPATITIS C SCREENING Completed HIV SCREENING Completed ASSESSMENT/PLAN: 1. Uncontrolled type 2 diabetes mellitus with hyperglycemia (HCC) - ICD9: 250.02, ICD10: E11.65 Switch from trulicity to Ozempic d/t medication shortage. Start ozempic 1 mg weekly. RTO in 3 weeks, if tolerating well, will likely need to increase dosage. Switch to metformin extended release to help with side effects of diarrhea. Increase metformin regimen. Start with 2 tablets in the morning and 1 tablet with dinner. If tolerating well after 2 weeks, increase to 2 tablets BID with meals. RTO in 3 weeks as discussed and will re-assess. - Uncontrolled - Worsening control - Blood glucose monitoring on a three times daily schedule - Counseled on healthy diet and regular exercise - Follow up in 3 weeks, sooner should any other issues arise. - HEMOGLOBIN A1C (POC) - OZEMPIC 1 MG/DOSE (4 MG/3 ML) SUBCUTANEOUS PEN INJECTOR - METFORMIN ER 500 MG 24 HR TABLET,EXTENDED RELEASE 2. Elevated BP without diagnosis of hypertension - ICD9: 796.2, ICD10: R03.0 - Encouraged dietary sodium restriction/DASH diet - Recommended regular aerobic exercise. - Recommend home blood pressure monitoring, to bring results in on next visit - Encouraged avoidance of excessive alcohol intake - Discussed need and benefit for weight loss. - Follow up in 1 month for BP recheck. - Goal of BP <130/80 RTO in 3 weeks, sooner if needed. I spent 32 minutes in the visit, with more than 50% of the total dxdk-jz-caon time of the visit in counseling / coordination of care. Prescription instructions reviewed with patient as applicable. Potential red flag symptoms discussed with the patient. Reviewed appropriate action plan to take if red flag symptoms occur. Patient agreeable to treatment plan. Polly Quintero APRN.CNP [address] [place] [address] [facility] Note Discharge Instructions Thank you for allowing [facility] to assist you with your healthcare needs. The following is importantdischarge information regarding your hospital visit. Diagnosis from Today's Visit Headache Hyperglycemia What to Do Next Instructions from Your Care Team No qualifying data available. Post Acute Orders No qualifying data available. You Need to Schedule the Following Appointments Follow Up with GIGI CARRILLO When In 1 day Why: Follow-up as scheduled with your doctor this morning. Rest in a cool, dark, quiet room. Monitor your blood sugars, keep a log of the readings to show your doctor. Use Tylenol or Motrin for headaches as needed. Return to the ED if symptoms worsen. Where: [address] [place] [address]- [employer] (1) Allergies macadamia nut (throat swelling, hives) Medications Please ask your primary doctor or pharmacist before taking any other medication not listed, including over the counter drugs, herbal medications, vitamins and or supplements as they may interact withyour home medications. What How Much When Why Instructions Last Dose Unchanged colestipol (colestipol 1 g oral tablet) 1 tab(s) by mouth Once a day Unchanged dicyclomine (dicyclomine 10 mg oral capsule) 1 cap by mouth Four (4) times a day Nausea Diarrhea Duration: 7 Days Unchanged liraglutide (Victoza 18 mg/ 3 mL subcutaneous Pen (NF)) 1.8 Milligram Subcutaneous Once a day Unchanged metFORMIN (metFORMIN 500 mg oral tablet) 1 tab(s) by mouth Two (2) times a day Please take this list to your next doctor s visit. Bring all medications you take, including over the counter medications, herbals and other supplements with you to your doctor s visit. Patients and families are reminded to discard old lists and to update any records with all medication providers or retail pharmacies. Education [employer] Headache, Unspecified A number of things can cause headaches. The cause of your headache isn t clear. But it doesn t seemto be a sign of any serious illness. Headache affects almost everyone at some time. It is the most common reason people miss days from work or school. You could have a tension headache or a migraine headache. Stress can cause a tension headache. This can happen if you tense the muscles of your shoulders, neck, and scalp without knowing it. If this stress lasts long enough, you may develop a tension headache. It is not clear why migraines occur, but certain things called" triggers" can raise the risk of having a migraine attack. Migraine triggers may include emotional stress or depression, or by hormone changes during the menstrual cycle. Other triggers include control pills and other medicines, alcohol or caffeine, foods with tyramine (such as aged cheese, wine), eyestrain, weather changes, missed meals, and lack of sleep or oversleeping. Other causes of headache include: Viral illness with high fever Head injury with concussion Sinus, ear, or throat infection Dental pain and jaw joint (TMJ) pain More serious but less common causes of headache include stroke, brain hemorrhage, brain tumor, meningitis, and encephalitis. Home care Follow these tips when taking care of yourself at home: Don t drive yourself home if you were given pain medicine for your headache. Instead, have someone else drive you home. Try to sleep when you get home. You should feel much better when you wake up. Apply heat to the back of your neck to ease a neck muscle spasm. Take care of a migraine headache by putting an ice pack on your forehead or at the base of your skull. If you have nausea or vomiting, eat a light diet until your headache eases. If you have a migraine headache, use sunglasses when in the daylight or around bright indoor lighting until your symptoms get better. Bright glaring light can make this type of headache worse. Follow-up care Follow up with your healthcare provider, or as advised. Talk with your provider if you have frequent headaches. He or she can help figure out a treatment plan. By knowing the earliest signs of headache, and starting treatment right away, you may be able to stop the pain yourself. When to seek medical advice Call your healthcare provider right away if any of these occur: Your head pain suddenly gets worse after sexual intercourse or strenuous activity Your head pain doesn t get better within 24 hours You aren t able to keep liquids down (repeated vomiting) Fever of 100.4 F (38 C) or higher, or as directed by your healthcare provider Stiff neck Extreme drowsiness, confusion, or fainting Dizziness or dizziness with spinning sensation (vertigo) Weakness in an arm or leg or one side of your face You have trouble talking or seeing [id number] [employer]. [address] [place] [address], [place] [id number]. All rights reserved. This information is not intended as a substitute for professional medical care. Always follow yourhealthcare professional's instructions. Diabetes with High Blood Sugar You have been treated for high blood sugar (hyperglycemia). This may be because of an infection or other illness. Or it may be from eating too many sweets or starches. Or it may be from not taking enough insulin or other diabetes medicine. Home care Check your blood sugar level at least 2 times a day. Write it down the results. Do this before breakfast and before dinner. If you take insulin, also write down your routine insulin dose. Note any other doses you needed based on your sliding scale or as advised by your healthcare provider. Do this for the next 3 to 5 days. High blood sugar may cause symptoms that you can learn to spot. These include: Peeing often Thirst Headache Breath that smells fruity Nausea or vomiting Belly pain If you have symptoms of high blood sugar, use a blood or urine test to find out what your blood sugar level is. If it is above your usual range, use the sliding scale regular insulin dose from your healthcare provider. Call your provider for advice if you were not given a range for your insulin dose. If your blood sugar is over 240 mg/dL, check your urine for ketones. Follow-up care Follow up with your healthcare provider, or as advised. You may need to meet with your provider in the next week. You will likely look at your blood sugar records together. You may need to change your dose of insulin or other diabetes medicine. When to seek medical advice Call your healthcare provider right away if these occur: Symptoms of high blood sugar that don't get better with the treatment your provider advised. This is especially true if you also have ketones in your urine. Blood sugar over 300 mg/dl. If you can t reach your healthcare provider, go to a hospital emergencyroom or urgent care center. Call 911 Call 911 if you have any of the following: Confusion Dizziness, lightheadedness, or loss of consciousness Shortness of breath Chest pain Weakness of an arm, leg, or one side of the face Sudden trouble with speech or vision [phone] [employer] [place] [address]. All rights reserved. This information is not intended as a substitute for professional medical care. Always follow yourhealthcare professional's instructions. Additional Information VACCINATE! IT SAVES LIVES! Members of the community who have not yet received the COVID-19 vaccine and would like to receive it can visit one of [facility] vaccine clinics. There are many vaccine clinic locations within the [facility]. For locations and available times, please visit www.gettheshot.coronavirus.[place].gov/. It is important to note that some COVID mobile vaccine clinics are held outdoors and may be canceled in rainy or stormy conditions. To learn more about pediatric vaccinations (ages 5-11), we invite you to visit the [facility] webpage. https://www.[email or web address].org/pages/0267-Zjciu-Jbfnnoihere-Fcxbeescdd-Eyblq-[email or web address] stions.htmlTo learn more about the COVID-19 vaccine, we invite you to visit the CDC website for a list of frequently asked questions. https://www.cdc.gov/coronavirus/2019-ncov/vaccines/faq.html [facility] Patient Portal Access Instructions: Stay connected with your healthcare team and access your personal medical information anytime with the [facility] Patient Portal. If you would like a full copy of your medical records please contact the [facility] Medical Records Department Friday through Friday between 8a.m. and 4:30p.m. Please follow the directions below to access the portal: 1.Access the email account you provided upon registration to the [facility].2.Look for an invitation email from [facility].3.Open the email and access the invitation link: Accept Invitation to [facility].Fill in the required culver to create your account. Sign into www.Nosto with your username and password that you created in the above steps to stay up to date. You can then view a summary of results, a summary of your visits, and the ability to download your summaries to your computer or send the information securely to a physician. Remember that your healthcare information is confidential, so carefully consider who you will allow to register on the [facility] Patient Portal for access to your information. You can also access the [facility] Patient Portal on the [employer] gregory. Simply click on "Health Records" under "HealthData" and then click on the [employer] logo. HOW TO SAFELY DISPOSE OF PRESCRIPTION MEDICATIONS Please use one of the following methods to safely dispose of your unused medications. 1.Use a drug disposal kit: the drug disposal pouch allows you to safely discard your old and unuseddrugs. Ask your nurse to give you one when you are discharged.2.Visit a local take-back location: Many local pharmacies and police departments have programs that collect old and unwanted prescriptiondrugs. Call your local pharmacy or go to http://bit.ly/2O0Sb3o to find one close to you.3.Make use of household items: Use cat litter or old coffee grounds to dispose medications if other options arenot available. Mix your drugs with these household products, seal them in an airtight container andthrow it into the garbage. Call [facility]: [phone] to be sure your drugs can be disposed of in this way. Some medicines may require a different approach.4.Never flush your medications down the toilet. IF YOU HAVE BEEN PRESCRIBED AN OPIOIDS FOR PAIN If you have been prescribed an opioid (such as hydrocodone, oxycodone or morphine), it is critical to understand the possible side effects and risks of opioid pain medications. Even when taken as directed, opioids can have several side effects including: Tolerance, meaning you might need to take more of a medication for the same pain relief. Nausea, vomiting and/or constipation. Sleepiness, dizziness, dry mouth, confusion, depression or itching. Physical dependence, meaning you have withdrawal symptoms when a medication is stopped ? this can develop within a few days. KNOW YOUR RESPONSIBILITIES It is important to know exactly how much and how often to take the opioid pain medications you are prescribed. Never take opioids in higher amounts or more often than prescribed. Do not combine opioids with alcohol or other drugs that cause drowsiness, such as benzodiazepines, also known as benzos,including diazepam and alprazolam, muscle relaxants or sleep aids. Never sell or share prescriptionopioids. This is illegal. Store opioids in a secure place and out of reach of others (including children, family, friends and visitors). The last page(s) of this document has been signed and retained as a CHART COPY Signatures Patient Education Materials Headache, Unspecified Diabetes with High Blood Sugar Medication Leaflets My discharge plan and instructions have been reviewed and explained to me and I,CANDELARIA GRANT understand my current condition and have read and understand these discharge instructions. I have received a written copy of the plan/instructions. If I have questions, I am aware that I should contact my doctor. Patient/School Based Therapist Signature: Date/Time: Relationship to Patient: Witness Name/Signature: Date/Time: [facility]02-27-2023 Miscellaneous Notes* Telephone Encounter - Gigi Carrillo DO - 05/13/2022 12:54 PM EST Noted Gigi Carrillo DO * Telephone Encounter - Fany Aldana LPN - 05/12/2022 3:36 PM EST Patient presented to [facility] reported Rx Truicity unable to refill x1 month . Follow up scheduled with Maribell Herrera 05/17/2022 to address possible Rx change. Fany Aldana LPN documented in this encounterHolzer [facility] System02-26-2023 History of Present illness Narrative* Maria R Marley PA-C - 05/12/2022 12:25 PM EST This note was created using Bloggerceriter. Subjective Candelaria Grant is a 37 year old female. HPI Patient presents with vaginal itching and discharge. She is an uncontrolled diabetic and when her sugars are high she tends to get vaginal yeast infections. Her sugars have been in the 300s the past week. She has been unable to fill the Trulicity that was prescribed due to the pharmacy not being able to get it in. She also takes metformin. Denies urinary complaints. No new sexual partners. Deniesconcern for other STDs. No chance of . Review of Systems Constitutional: Negative. HENT: Negative. Gastrointestinal: Negative. Endocrine: Elevated blood sugar Genitourinary: Positive for vaginal discharge. Negative for dysuria, hematuria and urgency. Musculoskeletal: Negative. Skin: Negative. All other systems reviewed and are negative. PAST MEDICAL HISTORY Diagnosis Date Abnormal Pap smear of cervix ascus cannot rule out high grade Diabetes mellitus type 2 in obese (HCC) Migraine headache Obesity Current Outpatient Medications Medication Sig Dispense Refill flash glucose sensor (FREESTYLE EMILIA 2 SENSOR) kit 1 Each as directed. Type 2 diabetes uncontrolled. 6 Each 3 flash glucose sensor (FREESTYLE EMILIA 14 DAY SENSOR) kit Apply and use as directed. Dx: Uncontrolled type 2 diabetes without insulin. 1 Kit 3 flash glucose scanning reader (FREESTYLE EMILIA 14 DAY READER) use as directed. Dx: Uncontrolled type 2 diabetes without insulin. 1 Each 0 metFORMIN (GLUCOPHAGE) 500 mg tablet Take 1 tablet by mouth twice daily with meals. . 60 tablet 11 ibuprofen (MOTRIN) 800 mg tablet take 1 tablet by mouth every 8 hours with food if needed for pain 30 tablet 1 colestipol (COLESTID) 1 gram tablet Take 1 tablet by mouth once daily. For Diarrhea Post Gall Bladder Removal 90 tablet 3 EPINEPHrine (EPIPEN) 0.3 mg/0.3 mL auto-injector Use for allergic reaction 2 Each 1 Lancets lancets Test blood sugar(s)2 times daily. Dx: uncontrolled type 2 DM 100 Each 11 insulin needles, DISPOSABLE, (BD INSULIN PEN NEEDLE UF) 31 gauge x 5/16" use once daily as [id number] Each 1 ibuprofen (MOTRIN) 800 mg tablet Take 1 tablet by mouth every 8 hours as needed. FOR PAIN. 90 tablet 3 famotidine (PEPCID) 40 mg tablet Take 40 mg by mouth as needed. 0 fluconazole (DIFLUCAN) 150 mg tablet Take 1 tablet by mouth one time only for 1 dose. Repeat in 3 days as needed. 2 tablet 0 dulaglutide (TRULICITY) 1.5 mg/0.5 mL pen injector Inject 3 mg subcutaneously one time a week. (Patient not taking: Reported on 05/12/2022) 4 mL 0 Phenyleph-Shark Xvq-Iaxx-Qzl (HEMORRHOIDAL) 0.25-3-12 % crea by RECTAL route twice daily. 52 g 1 blood sugar diagnostic (BLOOD GLUCOSE TEST) test strip Test blood sugar(s) 2 times daily. Dx: uncontrolled type 2 DM (Patient not taking: Reported on 04/25/2022) 50 Strip 11 No current facility-administered medications for this visit. PAST SURGICAL HISTORY Procedure Laterality Date SECTION HX 03/24/2013 CHOLECYSTECTOMY HX INSERTION OF IUD 2017 Mirena IUD removed 10/20/2020 KYLEENA IUD 10/20/2020 NEXPLANON INSERTION 05/10/2013 OSTECTOMY CALCANEUS SPUR W/WO PLNTAR FASCIAL RLS Left Dr. Jimenez REPAIR OF NASAL SEPTUM FAMILY HISTORY Problem Relation Age of Onset No Known Problems Mother Cancer Father pancreatic and renal. No Known Problems Brother No Known Problems Maternal Grandmother Diabetes Maternal Grandfather Diabetes Paternal Grandfather No Known Problems Son Breast Cancer Maternal Aunt Cervical Cancer Paternal Aunt x2- and one cousin other (lymphomia) Other maternal cousin other (leukemia) Other cousin Social History Tobacco Use Smoking status: Never Smokeless tobacco: Never Vaping Use Vaping Use: Never used Substance Use Topics Alcohol use: Yes Comment: Rarely Drug use: No Objective BP 140/78 Pulse 91 Temp 37.1 C (98.7 F) (Temporal) Resp 18 Wt 105.6 kg (232 lb 12.8 oz) LMP 04/21/2022 (Exact Date) SpO2 98% BMI 34.09 kg/m Physical Exam Vitals reviewed. Constitutional: Appearance: Normal appearance. HENT: Head: Normocephalic and atraumatic. Cardiovascular: Rate and Rhythm: Normal rate and regular rhythm. Heart sounds: Normal heart sounds. Pulmonary: Effort: Pulmonary effort is normal. Breath sounds: Normal breath sounds. Musculoskeletal: Cervical back: Neck supple. Neurological: General: No focal deficit present. Mental Status: She is alert and oriented to person, place, and time. Assessment and Plan ASSESSMENT/PLAN: 1. Vaginal yeast infection - ICD9: 112.1, ICD10: B37.31 (primary diagnosis) We will treat with Diflucan. 2. Elevated glucose - ICD9: 790.29, ICD10: R73.09 Patient's blood sugar here on her reader is 366. Recommended a close follow-up with PCP in the nextcouple of days. Red flags for ER care discussed. She is agreeable with plan. Maria R Marley PA-C documented in this encounterHolzer Health System02-15-2023 Miscellaneous Notes* Telephone Encounter - Polly Grant APRN.CNP - 05/01/2022 6:44 PM EST Noted and agree with below recommendation. Thank you, Polly Grant APRN.CNP * Telephone Encounter - Marianne Orozco RN - 04/26/2022 3:15 PM EST Patient call in for abdominal pain and discomfort x 2 weeks. Rates pain currently as a 7 out of 10,at worst it is a 9. Patient states that she has been having a hard time eating and drinking. Patient states that she feel fluids moving in her abdomen. Nurse Triage assessment completed with protocol recommending for disposition of Go to ED now. Care advice reviewed with patient, patient stated understanding. Reason for Disposition [1] SEVERE pain (e.g., excruciating) AND [2] present > 1 hour Answer Assessment - Initial Assessment Questions 1. LOCATION: Having pain through out abdomen; feels bloated. 2. RADIATION: Has been having chest pain and pain in back; 2 weeks 3. ONSET: 2 weeks ago 4. SUDDEN: Sudden Onset 5. PATTERN Constant; staying through out the whole 2 weeks; states she has had heartburn as well 6. SEVERITY: 7. RECURRENT SYMPTOM: Denies 8. CAUSE: Unsure 9. RELIEVING/AGGRAVATING FACTORS: " Eating and drinking makes it worse; laying down makes it worse; Nothing makes it better. 10. OTHER SYMPTOMS: Diarrhea, vomiting x 2 in the 2 weeks, back pain, feel like fluid is "sloshing" in her abdomen. 11. : Denies Protocols used: Abdominal Pain - [id number] * Telephone Encounter - Susana Lemons [facility] - 04/26/2022 2:50 PM EST Candelaria Grant is calling Gigi Carrillo DO today with concern regarding stomach issues, shestated sometimes it is painful; other times discomfort. She feels like when she is up moving she can here/feel fluid moving. Please call her today. Patient has been identified by name and birthdate. Duration of symptoms: N/A Person calling: self Call patient at: on cell [phone] (home) [phone] (cell) Was an appointment scheduled: No Closing statement: Symptom Call: Thank you for calling [facility], your call is very important. A nurse will call in approximately 2-4 hours during business hours. If this is an emergency, please contact 911. Susana Ortiz documented in this encounterHolzer Health System02-09-2023 History of Present illness Narrative* Viola Sommer RT(R) - 04/25/2022 9:50 AM EST Radiology Service Progress Note PATIENT NAME: Candelaria Grant DATE OF SERVICE: April 25, 2022 TIME: 9:47 AM PATIENT IDENTITY VERIFICATION COMPLETED USING TWO (2) IDENTIFIERS: Name and Date of confirmedby patient verbally. FALL SCREENING: Has the patient had 2 falls in the last year or 1 fall with injury or currently using an Ambulatory Assistive Device (Walker, Cane, Wheelchair, Crutches, etc.)? No PATIENT GENDER DATA: Female. status: : No status: NO. PATIENT RELEVANT IMPLANT DATA REVIEWED: Yes RADIOLOGY DEPARTMENT: General X-ray: Exam(s) Completed: Lower Extremity X- Ray(s): Foot, Left and Wt. Bearing PERIPHERAL IV DATA: Not applicable SIGNED BY: RT Josh(R) April 25, 2022 9:47 AM documented in this encounterHolzer Health System02-09-2023 History of Present illness Narrative* Jaron Ayala MD - 04/25/2022 9:36 AM EST Patient presents with: Pain (foot): Pt reported (LT) foot injury, onset AM pain rated 9. HPI: Foot pain: Duration: dropped a 2 liter bottle of soda on her foot this morning Location: left foot medial mid foot to 1st and 2nd toes Character: sharp Radiation: No. Aggravating: standing and walking Relieving: Pain relievers: none Associated: Hx of left foot surgery with hardware last year Pertinent negatives: Denies numbness MEDICATIONS: flash glucose sensor (FREESTYLE EMILIA 2 SENSOR) kit 1 Each as directed. Type 2 diabetes uncontrolled. dulaglutide (TRULICITY) 1.5 mg/0.5 mL pen injector Inject 3 mg subcutaneously one time a week. flash glucose sensor (FREESTYLE EMILIA 14 DAY SENSOR) kit Apply and use as directed. Dx: Uncontrolled type 2 diabetes without insulin. flash glucose scanning reader (FREESTYLE EMILIA 14 DAY READER) use as directed. Dx: Uncontrolled type 2 diabetes without insulin. metFORMIN (GLUCOPHAGE) 500 mg tablet Take 1 tablet by mouth twice daily with meals. . ibuprofen (MOTRIN) 800 mg tablet take 1 tablet by mouth every 8 hours with food if needed for pain Phenyleph-Shark Gbt-Zhks-Ywg (HEMORRHOIDAL) 0.25-3-12 % crea by RECTAL route twice daily. colestipol (COLESTID) 1 gram tablet Take 1 tablet by mouth once daily. For Diarrhea Post Gall Bladder Removal EPINEPHrine (EPIPEN) 0.3 mg/0.3 mL auto-injector Use for allergic reaction Lancets lancets Test blood sugar(s)2 times daily. Dx: uncontrolled type 2 DM insulin needles, DISPOSABLE, (BD INSULIN PEN NEEDLE UF) 31 gauge x 5/16" use once daily as directed blood sugar diagnostic (BLOOD GLUCOSE TEST) test strip Test blood sugar(s) 2 times daily. Dx: uncontrolled type 2 DM (Patient not taking: Reported on 04/25/2022) ibuprofen (MOTRIN) 800 mg tablet Take 1 tablet by mouth every 8 hours as needed. FOR PAIN. famotidine (PEPCID) 40 mg tablet Take 40 mg by mouth as needed. ALLERGIES: ALLERGIES Allergen Reactions Macadamia Nut Oil Hives, Swelling, Shortness of Breath Meloxicam Intolerance Headache VITALS: BP 134/86 Pulse 108 Temp 36.9 C (98.4 F) (Tympanic) Resp 18 Wt 105.8 kg (233 lb 3.2 oz) LMP 04/21/2022 (Exact Date) SpO2 98% BMI 34.15 kg/m PE: Pleasant, in no acute distress. Foot: left. No erythema, edema, ecchymosis, or deformity. Pain with 1st toe MTP ROM. Discomfort with 1st toe IP joint and 2nd toe ROM. Tender 1st metatarsal>2nd metatarsal. 3rd-5th toe non-tender. ASSESSMENT/PLAN: 1. Foot pain, left - ICD9: 729.5, ICD10: M79.672 - XR FOOT GENERAL 3V AP/LAT/OBL LEFT - no acute fracture or dislocation. Radiology interpretation is pending. The patient will be notified if there is a significant finding in the report not discussed at the time of the visit. Rest and as needed analgesia for foot contusion. Jaron Ayala MD documented in this encounterHolzer Health System01-31-2023 Miscellaneous Notes* Telephone Encounter - Lisa [facility] - 04/16/2022 11:41 AM EST Candelaria Grant is calling Gigi Carrillo DO today with concern regarding the strength of Trulicity not in stock and on manufacture back order for the 3 mg patient would like to have the Trulicity 1.5 mg sent in and take two injections once a week, the pharmacy has this in stock at the [facility]. Please send this change and advise patient when provider agrees. Patient has been identified by name and birthdate. Duration of symptoms: N/A Person calling: self Call patient at: on cell [phone] (home) [phone] (cell) Was an appointment scheduled: No Closing statement: Results or non-symptom based questions: Thank you for calling [facility], your call will be returned within the next business day. Lisa Dorantes [facility] documented in this encounterHolzer Health System01-30-2023 Miscellaneous Notes* Telephone Encounter - Zaida Wan MA - 04/15/2022 10:34 AM EST Patient has been identified by name and date of : Yes Requested Prescriptions Pending Prescriptions Disp Refills flash glucose sensor (FREESTYLE EMILIA 14 DAY SENSOR) kit 1 Kit 3 Sig: Apply and use as directed. Dx: Uncontrolled type 2 diabetes without insulin. RX INSTRUCTIONS: Patient aware RX will be sent to pharmacy. No need to notify patient. Zaida Wan MA Rajiv: 02/2022 No appointment scheduled Last refill; 01/2022 * Telephone Encounter - Kaylie Hsu Pss - 04/15/2022 10:19 AM EST Patient has been identified by name and date of : Yes Requested Prescriptions Pending Prescriptions Disp Refills flash glucose sensor (FREESTYLE EMILIA 14 DAY SENSOR) kit 1 Kit 3 Sig: Apply and use as directed. Dx: Uncontrolled type 2 diabetes without insulin. RX INSTRUCTIONS: Patient aware RX will be sent to pharmacy. No need to notify patient. Kaylie Hsu Pss documented in this encounterHolzer Health System01-23-2023 History of Present illness Narrative* Yaquelin Ta APRN.GUM COOK - 04/08/2022 9:29 AM EST Subjective Vaginal Problem Pertinent negatives include no chills or fever. Candelaria Grant is a 36 year old female who presents with vaginal itching and a small amount of discharge. She states she cannot use lubrication and she had a vaginal ultrasound done 3 days ago. She states since that test she has had vaginal irritation. She is diabetic and last A1C was 8.4; states she frequently gets yeast infections. Review of Systems Constitutional: Negative for chills and fever. Respiratory: Negative. Cardiovascular: Negative. Genitourinary: Positive for vaginal discharge. Negative for dysuria, frequency and urgency. See HPI Musculoskeletal: Negative for back pain. BP 124/82 Pulse 97 Temp 36.4 C (97.6 F) Resp 16 Wt 106.6 kg (235 lb) LMP 03/24/2022 SpO2 97% BMI 34.41 kg/m PAST MEDICAL HISTORY Diagnosis Date Abnormal Pap smear of cervix ascus cannot rule out high grade Diabetes mellitus type 2 in obese (HCC) Migraine headache Obesity PAST SURGICAL HISTORY Procedure Laterality Date SECTION HX 03/24/2013 CHOLECYSTECTOMY HX INSERTION OF IUD 2017 Mirena IUD removed 10/20/2020 KYLEENA IUD 10/20/2020 NEXPLANON INSERTION 05/10/2013 OSTECTOMY CALCANEUS SPUR W/WO PLNTAR FASCIAL RLS Left Dr. Jimenez REPAIR OF NASAL SEPTUM ALLERGIES Macadamia Nut Oil and Meloxicam MEDICATIONS TRULICITY 3 mg/0.5 mL pen injector INJECT 3 MILLIGRAMS SUBCUTANEOUSLY EVERY WEEK flash glucose scanning reader (FREESTYLE EMILIA 14 DAY READER) use as directed. Dx: Uncontrolled type 2 diabetes without insulin. flash glucose sensor (FREESTYLE EMILIA 14 DAY SENSOR) kit Apply and use as directed. Dx: Uncontrolled type 2 diabetes without insulin. metFORMIN (GLUCOPHAGE) 500 mg tablet Take 1 tablet by mouth twice daily with meals. . ibuprofen (MOTRIN) 800 mg tablet take 1 tablet by mouth every 8 hours with food if needed for pain colestipol (COLESTID) 1 gram tablet Take 1 tablet by mouth once daily. For Diarrhea Post Gall Bladder Removal EPINEPHrine (EPIPEN) 0.3 mg/0.3 mL auto-injector Use for allergic reaction Lancets lancets Test blood sugar(s)2 times daily. Dx: uncontrolled type 2 DM insulin needles, DISPOSABLE, (BD INSULIN PEN NEEDLE UF) 31 gauge x 5/16" use once daily as directed blood sugar diagnostic (BLOOD GLUCOSE TEST) test strip Test blood sugar(s) 2 times daily. Dx: uncontrolled type 2 DM ibuprofen (MOTRIN) 800 mg tablet Take 1 tablet by mouth every 8 hours as needed. FOR PAIN. famotidine (PEPCID) 40 mg tablet Take 40 mg by mouth as needed. fluconazole (DIFLUCAN) 150 mg tablet Take 1 tablet by mouth one time only for 1 dose. Repeat in 3 days as needed. Phenyleph-Shark Xme-Kxnu-Pqh (HEMORRHOIDAL) 0.25-3-12 % crea by RECTAL route twice daily. FAMILY HISTORY Problem Relation Age of Onset No Known Problems Mother Cancer Father pancreatic and renal. No Known Problems Brother No Known Problems Maternal Grandmother Diabetes Maternal Grandfather Diabetes Paternal Grandfather No Known Problems Son Breast Cancer Maternal Aunt Cervical Cancer Paternal Aunt x2- and one cousin other (lymphomia) Other maternal cousin other (leukemia) Other cousin Social History Tobacco Use Smoking status: Never Smokeless tobacco: Never Vaping Use Vaping Use: Never used Substance Use Topics Alcohol use: Yes Comment: Rarely Drug use: No Objective Physical Exam Vitals and nursing note reviewed. Constitutional: Appearance: Normal appearance. Cardiovascular: Rate and Rhythm: Normal rate. Pulmonary: Effort: Pulmonary effort is normal. Genitourinary: Comments: Exam deferred. Skin: General: Skin is warm and dry. Neurological: Mental Status: She is alert. ASSESSMENT/PLAN: 1. Vaginal yeast infection - ICD9: 112.1, ICD10: B37.31 - FLUCONAZOLE 150 MG TABLET - Follow-up with your PCP in 3-5 days if symptoms have not improved or sooner if symptoms worsen - Discussed red flags and need for immediate medical evaluation if any occur. - Discussed supportive care treatment with fluids, rest and analgesia. - Discussed expected course of illness Yaquelin Ta APRN.CNP documented in this encounterHolzer Health System01-23-2023 Instructions* Patient Instructions* Yaquelin Ta APRN.CNP - 04/08/2022 9:29 AM EST ASSESSMENT/PLAN: 1. Vaginal yeast infection - ICD9: 112.1, ICD10: B37.31 - FLUCONAZOLE 150 MG TABLET - Follow-up with your PCP in 3-5 days if symptoms have not improved or sooner if symptoms worsen - Discussed red flags and need for immediate medical evaluation if any occur. - Discussed supportive care treatment with fluids, rest and analgesia. - Discussed expected course of illness Yaquelin Ta APRN.CNP [facility] PATIENT INFO VAGINAL YEAST INFECTION INTRODUCTION Vaginal yeast infections are a common problem in women. Vaginal yeast infections are also called yeast vaginitis or vaginal candidiasis. The most common symptoms of a yeast infection are itching and irritation of the vulva and around the opening of the vagina. Yeast infections occur mainly in women who are menstruating (having monthly periods). They are lesscommon in postmenopausal women who do not take estrogen and in girls who have not yet started menstruating. VAGINAL YEAST INFECTION SYMPTOMS The most common symptoms of a yeast infection include: Itching or irritation of the vulva and around the vaginal opening. Pain with urination, vulvar soreness or irritation, Pain with intercourse Reddened and swollen vulvar and vaginal tissues. Some women have no abnormal vaginal discharge. Others have white clumpy (curd- like) or watery vaginal discharge. Symptoms of a yeast infection are similar to a number of other conditions, including bacterial vaginosis (a bacterial infection of the vagina), trichomoniasis (a sexually transmitted infection), and dermatitis (irritated skin). It is often not possible to know if itching is caused by yeast or other causes. VAGINAL YEAST INFECTION CAUSE The fungus that causes yeast infections (named Marcelo) normally lives in the gastrointestinal tract and sometimes the vagina. Normally, Marcelo causes no symptoms. However, when there are changes inthe normal zamzam of the gastrointestinal tract and vagina (caused by medicines, injury, or stress to the immune system), Marcelo can overgrow and cause the symptoms described above. VAGINAL YEAST INFECTION RISK FACTORS In most women, there is no underlying health problem that leads to a yeast infection. There are several risk factors that may increase the chances of developing an infection, including: Antibiotics -- Most antibiotics kill a wide variety of bacteria, including those that normally livein the vagina. These bacteria protect the vagina from the overgrowth of yeast. Some women are proneto yeast infections while taking antibiotics. Hormonal contraceptives (eg, control pills, patch, and vaginal ring) -- The risk of yeast infections may be higher in women who use control methods containing estrogen. Contraceptive devices -- Vaginal sponges, diaphragms, and intrauterine devices (IUDs) may increase the risk of yeast infections. Spermicides do not usually cause yeast infections, although they can cause you to have vaginal or vulvar irritation. Weakened immune system -- Yeast infections are more common in people who have a weakened immune system due to HIV or use of certain medications (steroids, chemotherapy, post-organ transplant medications). -- Vaginal discharge becomes more noticeable during , although yeast infection is not always the cause. Diabetes -- Women with diabetes are at higher risk for yeast infections, especially if blood sugar levels are often higher than normal. Sexual activity -- Vaginal yeast infections are not a sexually transmitted infection. They can occur in women who have never been sexually active, but are more common in women who are sexually active. VAGINAL YEAST INFECTION DIAGNOSIS Yeast infections can be diagnosed with an exam. During the exam, your doctor or nurse will examine your vulva and vagina and swab the vagina to get a sample of discharge. Do not begin treatment at home before being examined. Self-diagnosis -- Women with vulvar itching or vaginal discharge often assume that their symptoms are caused by a yeast infection and then use a non- prescription treatment. However, in one study, only 11 percent of women accurately diagnosed their infection; women with a previous yeast infection were only slightly more accurate (35 percent correct). Diagnosing and treating yourself: Wastes money (on non-prescription treatment) Wastes time; you will not feel better until you use the right treatment Can make you more itchy and irritated VAGINAL YEAST INFECTION TREATMENT Treatment of a vaginal yeast infection may include a pill that you take by mouth or a vaginal treatment. Vaginal treatment -- Treatment for a vaginal yeast infection often includes a vaginal cream or tablet. You apply the cream or tablet inside the vagina at bedtime with an applicator. There are prescription and non-prescription treatments, so ask your doctor or nurse which to use. One, three, and seven-day treatments are equally effective. Oral treatment -- A prescription pill called fluconazole (Diflucan ) is another option for treatingyeast infections. Most women only need one dose, although women with more complicated infections (such as those with underlying medical problems, recurrent yeast infections, or severe signs and symptoms) may require a second dose 72 hours (3 days) after the first dose. Side effects of fluconazole are mild and infrequent, but may include stomach upset, headache, and rash. Fluconazole interacts with a number of medications; ask your doctor, nurse, or pharmacist if you have concerns. Fluconazole is not usually recommended during the first trimester of due to the potential risk of harm to the fetus. When will I feel better? -- Most yeast infections go away within a few days after starting treatment. However, you may continue to feel itchy and irritated, even after the infection is gone. If you do not get better within a few days after finishing treatment, call your doctor or nurse for advice. RECURRENT VAGINAL YEAST INFECTIONS Between 5 and 8 percent of women have recurrent yeast infections, defined as more than four infections per year. There is no evidence that eating yogurt or other products containing live Lactobacillus acidophilus, or applying these products to the vagina is of any benefit in women with recurrent vaginal yeast infections. Diagnosis -- As with initial yeast infections, it is important to correctly diagnose recurrent yeast infections. A woman who has frequent signs and symptoms of vulvar or vaginal irritation or itchingshould be seen by a healthcare provider to ensure that her symptoms are caused by yeast rather thanother common problems (eg, other vaginal infections, allergic reaction or sensitivity, eczema). As with initial infections, self-diagnosis is not accurate enough to recommend treatment. Treatment -- Women with recurrent infections are usually given a longer course of treatment for infections, between 7 and 14 days for a topical (cream or suppository) medication or fluconazole 150 mgby mouth with a second and third dose 3 and 6 days later. Preventive treatment may be recommended after the infection has resolved; this may include fluconazole (150 mg orally once per week) or clotrimazole (500 mg vaginal suppositories administered once per week). Treatment of a sexual partner -- Vaginal yeast infections are not a sexually transmitted infection,although the infection may rarely be passed from one partner to another. Most experts do not recommend treatment of a sexual partner. SUMMARY Vaginal yeast infections are a common problem in women. Itching is the most common symptom of a vaginal yeast infection. Women may also note pain with urination, soreness or irritation, pain with intercourse, or reddened and swollen vulvar and vaginal tissues. There is often little or no vaginal discharge; if present, discharge is typically white and clumpy (curd- like) or thin and watery. Symptoms of a yeast infection are similar to a number of other conditions. A physical examination is needed to determine the cause of symptoms. There are several risk factors that may increase the chances of developing a yeast infection, including use of antibiotics, control, diabetes, , and a weakened immune system (due to chemotherapy, HIV, or certain medications). To diagnose a vaginal yeast infection, a healthcare provider will do an examination. It is important to be seen when symptoms are bothersome and before any treatment is used. Do not begin treatment for a yeast infection before being examined. Treatment of vaginal yeast infection may include a vaginal cream or tablet or a pill taken by mouth. documented in this encounterHolzer Health System01-20-2023 History of Present illness Narrative* Elizabeth Lambert RDMS - 04/05/2022 10:00 AM EST Radiology Service Progress Note PATIENT NAME: Candelaria Grant DATE OF SERVICE: April 05, 2022 TIME: 10:29 AM PATIENT IDENTITY VERIFICATION COMPLETED USING TWO (2) IDENTIFIERS: Name and Date of confirmedby patient verbally. FALL SCREENING: Has the patient had 2 falls in the last year or 1 fall with injury or currently using an Ambulatory Assistive Device (Walker, Cane, Wheelchair, Crutches, etc.)? No PATIENT GENDER DATA: Female. status: : No status: NO. PATIENT RELEVANT IMPLANT DATA REVIEWED: Not Applicable RADIOLOGY DEPARTMENT: Ultrasound PERIPHERAL IV DATA: Not applicable SIGNED BY: Elizabeth Lambret RDMS April 05, 2022 10:29 AM documented in this encounterHolzer Health System01-19-2023 Miscellaneous Notes* Telephone Encounter - Karley Philip LPN - 04/04/2022 4:13 PM EST Medication on Backorder see note in RX documented in this encounterHolzer Health System01-17-2023 History of Present illness Narrative* Domenica Wan MD - 04/02/2022 9:40 AM EST Farm Mechanic offered: Patient declines. Candelaria Grant is a 36 year old female who presents for problem visit HPI: Patient presents with pelvic & back pain. Movement makes the pain worse and NSAIDs help the pain. The pain started 2 weeks ago. Denies vaginitis symptoms or STD concerns. She has regular menses with the IUD. OB History T1 L1 SAB0 IAB0 Ectopic0 Multiple0 Live Births0 Comment: 1 section Healthcare Market Consultant History LMP: 03/24/2022, IUD Age at Menarche: Age at First : Age at Menopause: Healthcare Market Consultant History Comments: Sexual Activity: Yes; Male Contraception: I.U.D. PAST MEDICAL HISTORY Diagnosis Date Abnormal Pap smear of cervix ascus cannot rule out high grade Diabetes mellitus type 2 in obese (HCC) Migraine headache Obesity PAST SURGICAL HISTORY Procedure Laterality Date SECTION HX 03/24/2013 CHOLECYSTECTOMY HX INSERTION OF IUD 2016 Mirena IUD removed 10/20/2020 KYLEENA IUD 10/20/2020 NEXPLANON INSERTION 05/10/2013 OSTECTOMY CALCANEUS SPUR W/WO PLNTAR FASCIAL RLS Left Dr. Jimenez REPAIR OF NASAL SEPTUM FAMILY HISTORY Problem Relation Age of Onset No Known Problems Mother Cancer Father pancreatic and renal. No Known Problems Brother No Known Problems Maternal Grandmother Diabetes Maternal Grandfather Diabetes Paternal Grandfather No Known Problems Son Breast Cancer Maternal Aunt Cervical Cancer Paternal Aunt x2- and one cousin other (lymphomia) Other maternal cousin other (leukemia) Other cousin Social History Tobacco Use Smoking status: Never Smokeless tobacco: Never Vaping Use Vaping Use: Never used Substance Use Topics Alcohol use: Yes Comment: Rarely Drug use: No Current Outpatient Medications Medication Sig dulaglutide (TRULICITY) 1.5 mg/0.5 mL pen injector Inject 1.5 mg subcutaneously one time a week. Inject once per week. Discard Pen After flash glucose scanning reader (HealthQxSTYLE EMILIA 14 DAY READER) use as directed. Dx: Uncontrolled type 2 diabetes without insulin. flash glucose sensor (FREESTYLE EMILIA 14 DAY SENSOR) kit Apply and use as directed. Dx: Uncontrolled type 2 diabetes without insulin. metFORMIN (GLUCOPHAGE) 500 mg tablet Take 1 tablet by mouth twice daily with meals. . ibuprofen (MOTRIN) 800 mg tablet take 1 tablet by mouth every 8 hours with food if needed for pain colestipol (COLESTID) 1 gram tablet Take 1 tablet by mouth once daily. For Diarrhea Post Gall Bladder Removal EPINEPHrine (EPIPEN) 0.3 mg/0.3 mL auto-injector Use for allergic reaction Lancets lancets Test blood sugar(s)2 times daily. Dx: uncontrolled type 2 DM insulin needles, DISPOSABLE, (BD INSULIN PEN NEEDLE UF) 31 gauge x 5/16" use once daily as directed blood sugar diagnostic (BLOOD GLUCOSE TEST) test strip Test blood sugar(s) 2 times daily. Dx: uncontrolled type 2 DM ibuprofen (MOTRIN) 800 mg tablet Take 1 tablet by mouth every 8 hours as needed. FOR PAIN. famotidine (PEPCID) 40 mg tablet Take 40 mg by mouth as needed. ciprofloxacin-hydrocortisone (CIPRO HC) otic suspension Use 3 Drops in the right ear twice daily. (Patient not taking: Reported on 04/02/2022) oxyCODONE-acetaminophen (PERCOCET) 5-325 mg tablet Take 1 tablet by mouth every 6 hours as needed for pain. (Patient not taking: Reported on 04/02/2022) ofloxacin (OCUFLOX) 0.3 % ophthalmic solution Place 4 drops to right ear 3 times daily for 7 days. (Patient not taking: No sig reported) Phenyleph-Shark Grx-Brrf-Foh (HEMORRHOIDAL) 0.25-3-12 % crea by RECTAL route twice daily. albuterol HFA (PROAIR HFA) 90 mcg/actuation inhaler Inhale 2 Puffs as instructed every 6 hours as needed. (Patient not taking: No sig reported) clotrimazole-betamethasone (LOTRISONE) cream Apply 1 application to affected area twice daily. (Patient not taking: No sig reported) No current facility-administered medications for this visit. Allergies As of Date: 04/02/2022 Allergen Noted Reaction MACADAMIA NUT OIL 04/08/2014 Hives, Swelling, and Shortness of Breath MELOXICAM 08/30/2015 Intolerance Fully Assessed 04/02/2022 Allergies and current medication updated:Yes EXAM: BP 132/90 Wt 231 lb 12.8 oz (105.1kg) LMP 03/24/2022 GENERAL: pleasant, female in no apparent distress ABDOMEN: soft, non-tender, and no masses PELVIC: external genitalia normal, normal Bartholin's glands, urethra, Lorenzo's glands, no vulvar lesions, no cervical lesions, good vaginal support, physiologic discharge present, normal appearing perineal body and perianal region; IUD strings extruding from cervix BIMANUAL: exam very limited d/t patient's discomfort NEURO: alert and oriented x3,exam grossly non-focal EXTREMITIES: normal ASSESSMENT AND PLAN: 36yo female with pelvic pain Check pelvic US Pap with hpv Declines STD testing & HPV vaccine today Medical Decision Making: Problems: Moderate: New problem with uncertain prognosis Data: Unique test(s) ordered: 3+ Risk: Low: Low risk from testing/treatment Medical Decision Making Level: 4 - Moderate Domenica Wan MD documented in this encounterHolzer Health System01-17-2023 Instructions* Patient Instructions* Bree Montalvo APRN.CNP - 04/02/2022 8:20 AM EST OB appointment at 0930 documented in this encounterHolzer Health System01-17-2023 History of Present illness Narrative* Bree Montalvo APRN.CNP - 04/02/2022 8:08 AM EST Chief Complaint Patient presents with: UTI HPI Candelaria Grant is a 36 year old female who presents here today for Above Complaints.. Patient presents for lower abdominal and back pain. Patient states that the lower abdominal pain started about one week ago. Patient states that she has an IUD and at first had no periods then began having light periods. Patient states her LMP was 03/10/2022 but that she started bleeding again about a week ago and continues to bleed. Patient reports urinary frequency. Past medical history, appointments, medications, allergies reviewed. Previous Medical History PAST MEDICAL HISTORY Diagnosis Date Abnormal Pap smear of cervix ascus cannot rule out high grade Diabetes mellitus type 2 in obese (HCC) Migraine headache Obesity Previous Surgical History PAST SURGICAL HISTORY Procedure Laterality Date SECTION HX 03/24/2013 CHOLECYSTECTOMY HX INSERTION OF IUD 2016 Mirena IUD removed 10/20/2020 KYLEENA IUD 10/20/2020 NEXPLANON INSERTION 05/10/2013 OSTECTOMY CALCANEUS SPUR W/WO PLNTAR FASCIAL RLS Left Dr. Jimenez REPAIR OF NASAL SEPTUM Family History FAMILY HISTORY Problem Relation Age of Onset No Known Problems Mother Cancer Father pancreatic and renal. No Known Problems Brother No Known Problems Maternal Grandmother Diabetes Maternal Grandfather Diabetes Paternal Grandfather No Known Problems Son Breast Cancer Maternal Aunt Cervical Cancer Paternal Aunt x2- and one cousin other (lymphomia) Other maternal cousin other (leukemia) Other cousin Patient Allergies ALLERGIES Allergen Reactions Macadamia Nut Oil Hives, Swelling, Shortness of Breath Meloxicam Intolerance Headache Current Medications Current Outpatient Medications on File Prior to Visit Medication Sig dulaglutide (TRULICITY) 1.5 mg/0.5 mL pen injector Inject 1.5 mg subcutaneously one time a week. Inject once per week. Discard Pen After ciprofloxacin-hydrocortisone (CIPRO HC) otic suspension Use 3 Drops in the right ear twice daily. oxyCODONE-acetaminophen (PERCOCET) 5-325 mg tablet Take 1 tablet by mouth every 6 hours as needed for pain. flash glucose scanning reader (FREESTYLE EMILIA 14 DAY READER) use as directed. Dx: Uncontrolled type 2 diabetes without insulin. flash glucose sensor (FREESTYLE EMILIA 14 DAY SENSOR) kit Apply and use as directed. Dx: Uncontrolled type 2 diabetes without insulin. metFORMIN (GLUCOPHAGE) 500 mg tablet Take 1 tablet by mouth twice daily with meals. . ofloxacin (OCUFLOX) 0.3 % ophthalmic solution Place 4 drops to right ear 3 times daily for 7 days. (Patient not taking: No sig reported) ibuprofen (MOTRIN) 800 mg tablet take 1 tablet by mouth every 8 hours with food if needed for pain Phenyleph-Shark Rhb-Zfiy-Ria (HEMORRHOIDAL) 0.25-3-12 % crea by RECTAL route twice daily. colestipol (COLESTID) 1 gram tablet Take 1 tablet by mouth once daily. For Diarrhea Post Gall Bladder Removal EPINEPHrine (EPIPEN) 0.3 mg/0.3 mL auto-injector Use for allergic reaction Lancets lancets Test blood sugar(s)2 times daily. Dx: uncontrolled type 2 DM insulin needles, DISPOSABLE, (BD INSULIN PEN NEEDLE UF) 31 gauge x 5/16" use once daily as directed albuterol HFA (PROAIR HFA) 90 mcg/actuation inhaler Inhale 2 Puffs as instructed every 6 hours as needed. (Patient not taking: No sig reported) blood sugar diagnostic (BLOOD GLUCOSE TEST) test strip Test blood sugar(s) 2 times daily. Dx: uncontrolled type 2 DM clotrimazole-betamethasone (LOTRISONE) cream Apply 1 application to affected area twice daily. (Patient not taking: No sig reported) ibuprofen (MOTRIN) 800 mg tablet Take 1 tablet by mouth every 8 hours as needed. FOR PAIN. famotidine (PEPCID) 40 mg tablet Take 40 mg by mouth as needed. No current facility-administered medications on file prior to visit. Social History Social History Tobacco Use Smoking status: Never Smokeless tobacco: Never Vaping Use Vaping Use: Never used Substance Use Topics Alcohol use: Yes Comment: Rarely Drug use: No Review of Symptoms REVIEW OF SYSTEMS SEE HPI EXAM: BP 126/80 Pulse 76 Temp 36.8 C (98.2 F) Resp 14 Wt 104.8 kg (231 lb) LMP 02/24/2021 (LMP Unknown) BMI 33.83 kg/m General Appearance: Well appearing, alert, in no acute distress, well-hydrated, well nourished.. Health Maintenance List DEPRESSION ASSESSMENT due on 03/17/2022 DILATED RETINAL EXAM due on 03/17/2022 DTAP,TDAP,TD(1 - Tdap) due on 08/29/2022 PNEUMOCOCCAL(2 - PCV) due on 08/29/2022 INFLUENZA(1) due on 09/13/2022 COVID-19 VACCINE(1) due on 02/13/2023 HBA1C due on 05/14/2022 LDL CHOLESTEROL due on 11/30/2022 PAP TESTING due on 01/01/2023 HPV TESTING due on 01/01/2023 URINE ALBUMIN:CREATININE RATIO due on 02/13/2023 DIABETIC FOOT EXAM due on 02/13/2023 ANNUAL PCP TEAM CHRONIC DISEASE VISIT due on 03/14/2023 HEPATITIS C SCREENING Completed HIV SCREENING Completed ASSESSMENT/PLAN: 1. Abnormal uterine bleeding - ICD9: 626.9, ICD10: N93.9 (primary diagnosis) - Appointment made with [facility] at 930 am 2. Lower abdominal pain - ICD9: 789.09, ICD10: R10.30 Differential Diagnosis includes Ovarian cyst and Displacement of IUD -UA positive glucose, ketones, protein. Known DM II. Trace blood, menstruating. Bree Montalvo APRN.CNP documented in this encounterHolzer Health System12-29-2022 Instructions* Patient Instructions* Ilana Herrera APRN.CNP - 03/14/2022 12:43 PM EST Follow up in 1 month. We'll increase the Trulicity to 1.5mg weekly. Use the ear drops twice daily to your right ear. If your blood sugar sustains over 300, please let the office know. documented in this encounterHolzer Health System12-29-2022 History of Present illness Narrative* Ilana Herrera APRN.CNP - 03/14/2022 12:25 PM EST Chief Complaint Patient presents with: Follow Up: DM medication, review recent labs HPI Candelaria Grant is a 36 year old female who presents here today for Above Complaints.. Today: Recent A1C on 02/13/2022 of 8.4. Continues with pain and swelling to left lower leg-sees her foot surgeon on 03/21 and will discuss with him at that point. Diabetes-continues with bid Metformin and Trulicity. Has discontinued all other diabetic medications. Blood sugars fasting have been in the high 200's. Did have some 170's but this is the lowest she has been. Right ear has been bothering her for a couple weeks. Is not hurting, but uncomfortable. No drainage, no fevers. Past medical history, appointments, medications, allergies reviewed. Previous Medical History PAST MEDICAL HISTORY Diagnosis Date Abnormal Pap smear of cervix ascus cannot rule out high grade Diabetes mellitus type 2 in obese (HCC) Migraine headache Obesity Previous Surgical History PAST SURGICAL HISTORY Procedure Laterality Date SECTION HX 03/24/2013 CHOLECYSTECTOMY HX INSERTION OF IUD 2016 Mirena IUD removed 10/20/2020 KYLEENA IUD 10/20/2020 NEXPLANON INSERTION 05/10/2013 OSTECTOMY CALCANEUS SPUR W/WO PLNTAR FASCIAL RLS Left Dr. Jimenez REPAIR OF NASAL SEPTUM Family History FAMILY HISTORY Problem Relation Age of Onset No Known Problems Mother Cancer Father pancreatic and renal. No Known Problems Brother No Known Problems Maternal Grandmother Diabetes Maternal Grandfather Diabetes Paternal Grandfather No Known Problems Son Breast Cancer Maternal Aunt Cervical Cancer Paternal Aunt x2- and one cousin other (lymphomia) Other maternal cousin other (leukemia) Other cousin Patient Allergies ALLERGIES Allergen Reactions Macadamia Nut Oil Hives, Swelling, Shortness of Breath Meloxicam Intolerance Headache Current Medications Current Outpatient Medications on File Prior to Visit Medication Sig oxyCODONE-acetaminophen (PERCOCET) 5-325 mg tablet Take 1 tablet by mouth every 6 hours as needed for pain. dulaglutide (TRULICITY) 0.75 mg/0.5 mL pen injector Inject 0.75 mg subcutaneously one time a week. Inject dose once per week. Discard Pen After flash glucose scanning reader (FREESTYLE EMILIA 14 DAY READER) use as directed. Dx: Uncontrolled type 2 diabetes without insulin. flash glucose sensor (FREESTYLE EMILIA 14 DAY SENSOR) kit Apply and use as directed. Dx: Uncontrolled type 2 diabetes without insulin. naltrexone-bupropion (CONTRAVE) 8-90 mg ER tablet Take 1 tablet by mouth once daily. metFORMIN (GLUCOPHAGE) 500 mg tablet Take 1 tablet by mouth twice daily with meals. . ibuprofen (MOTRIN) 800 mg tablet take 1 tablet by mouth every 8 hours with food if needed for pain colestipol (COLESTID) 1 gram tablet Take 1 tablet by mouth once daily. For Diarrhea Post Gall Bladder Removal EPINEPHrine (EPIPEN) 0.3 mg/0.3 mL auto-injector Use for allergic reaction Lancets lancets Test blood sugar(s)2 times daily. Dx: uncontrolled type 2 DM insulin needles, DISPOSABLE, (BD INSULIN PEN NEEDLE UF) 31 gauge x 5/16" use once daily as directed blood sugar diagnostic (BLOOD GLUCOSE TEST) test strip Test blood sugar(s) 2 times daily. Dx: uncontrolled type 2 DM ibuprofen (MOTRIN) 800 mg tablet Take 1 tablet by mouth every 8 hours as needed. FOR PAIN. famotidine (PEPCID) 40 mg tablet Take 40 mg by mouth as needed. ofloxacin (OCUFLOX) 0.3 % ophthalmic solution Place 4 drops to right ear 3 times daily for 7 days. (Patient not taking: No sig reported) Phenyleph-Shark Vfp-Ngym-Xhl (HEMORRHOIDAL) 0.25-3-12 % crea by RECTAL route twice daily. albuterol HFA (PROAIR HFA) 90 mcg/actuation inhaler Inhale 2 Puffs as instructed every 6 hours as needed. (Patient not taking: No sig reported) clotrimazole-betamethasone (LOTRISONE) cream Apply 1 application to affected area twice daily. (Patient not taking: No sig reported) No current facility-administered medications on file prior to visit. Social History Social History Tobacco Use Smoking status: Never Smokeless tobacco: Never Vaping Use Vaping Use: Never used Substance Use Topics Alcohol use: Yes Comment: Rarely Drug use: No Review of Symptoms REVIEW OF SYSTEMS See HPI, otherwise negative EXAM: BP 124/88 (BP Site: Left Arm, BP Position: Sitting, BP Cuff Size: Regular Adult) Pulse 78 Resp 16 Wt 105.6 kg (232 lb 12.8 oz) LMP 02/24/2021 (LMP Unknown) SpO2 96% BMI 34.09 kg/m General Appearance: Well appearing, alert, in no acute distress, well-hydrated, well nourished.. Ears: Positive findings: erythema and edema of ear canal: on right. Lungs: Lungs clear to auscultation. No wheezing, rhonchi, rales.. Heart: RRR without murmur, gallop, or rubs. No ectopy. Health Maintenance List DILATED RETINAL EXAM due on 03/17/2022 DTAP,TDAP,TD(1 - Tdap) due on 08/29/2022 PNEUMOCOCCAL(2 - PCV) due on 08/29/2022 INFLUENZA(1) due on 09/13/2022 COVID-19 VACCINE(1) due on 02/13/2023 HBA1C due on 05/14/2022 LDL CHOLESTEROL due on 11/30/2022 PAP TESTING due on 01/01/2023 HPV TESTING due on 01/01/2023 URINE ALBUMIN:CREATININE RATIO due on 02/13/2023 DIABETIC FOOT EXAM due on 02/13/2023 ANNUAL PCP TEAM CHRONIC DISEASE VISIT due on 03/06/2023 DEPRESSION ASSESSMENT Completed HEPATITIS C SCREENING Completed HIV SCREENING Completed Data reviewed Previous records, office notes ASSESSMENT/PLAN: 1. Uncontrolled type 2 diabetes mellitus with hyperglycemia (HCC) - ICD9: 250.02, ICD10: E11.65 (primary diagnosis) uncontrolled - Increase Trulicity - Blood glucose monitoring on a continuous schedule - Encouraged regular aerobic exercise and weight loss Follow up again in 1 month. - TRULICITY 1.5 MG/0.5 ML SUBCUTANEOUS PEN INJECTOR 2. Acute otitis externa of right ear, unspecified type - ICD9: 380.10, ICD10: H60.501 Erythema and mild edema to right external ear canal. - CIPROFLOXACIN 0.2 %-HYDROCORTISONE 1 % EAR DROPS,SUSPENSION Ilana Herrera APRN.GUM COOK documented in this encounterHolzer Health System12-21-2022 Instructions* Patient Instructions* Ilana Herrera APRN.CNP - 03/06/2022 9:31 AM EST You can take your Percocet 4 times daily as needed. Continue elevating your leg. Have your ultrasound of your leg completed. Have your labs completed today. documented in this encounterHolzer Health System12-21-2022 History of Present illness Narrative* Ilana Herrera, MUCK BOSS.GUM COOK - 03/06/2022 9:16 AM EST Chief Complaint Patient presents with: Hospital F/U: Left leg pain x 1 week, nothing found at hospital HPI Candelaria Grant is a 36 year old female who presents here today for Above Complaints.. Today: Left lateral calf pain. Had surgery on her pinky toe in December on this same side. Started hurting 3 days ago. Wears boot all but 30 minutes per day. Cannot get the boot completely closed anymore. Was seen at [facility] ED 3 days ago, with negative CT chest for PE and reportedly negative ultrasound for DVT. She did have an elevated d-dimer. Past medical history, appointments, medications, allergies reviewed. Previous Medical History PAST MEDICAL HISTORY Diagnosis Date Abnormal Pap smear of cervix ascus cannot rule out high grade Diabetes mellitus type 2 in obese (HCC) Migraine headache Obesity Previous Surgical History PAST SURGICAL HISTORY Procedure Laterality Date SECTION HX 03/24/2013 CHOLECYSTECTOMY HX INSERTION OF IUD 2016 Mirena IUD removed 10/20/2020 KYLEENA IUD 10/20/2020 NEXPLANON INSERTION 05/10/2013 OSTECTOMY CALCANEUS SPUR W/WO PLNTAR FASCIAL RLS Left Dr. Jimenez REPAIR OF NASAL SEPTUM Family History FAMILY HISTORY Problem Relation Age of Onset No Known Problems Mother Cancer Father pancreatic and renal. No Known Problems Brother No Known Problems Maternal Grandmother Diabetes Maternal Grandfather Diabetes Paternal Grandfather No Known Problems Son Breast Cancer Maternal Aunt Cervical Cancer Paternal Aunt x2- and one cousin other (lymphomia) Other maternal cousin other (leukemia) Other cousin Patient Allergies ALLERGIES Allergen Reactions Macadamia Nut Oil Hives, Swelling, Shortness of Breath Meloxicam Intolerance Headache Current Medications Current Outpatient Medications on File Prior to Visit Medication Sig dulaglutide (TRULICITY) 0.75 mg/0.5 mL pen injector Inject 0.75 mg subcutaneously one time a week. Inject dose once per week. Discard Pen After flash glucose scanning reader (FREESTYLE EMILIA 14 DAY READER) use as directed. Dx: Uncontrolled type 2 diabetes without insulin. flash glucose sensor (FREESTYLE EMILIA 14 DAY SENSOR) kit Apply and use as directed. Dx: Uncontrolled type 2 diabetes without insulin. naltrexone-bupropion (CONTRAVE) 8-90 mg ER tablet Take 1 tablet by mouth once daily. metFORMIN (GLUCOPHAGE) 500 mg tablet Take 1 tablet by mouth twice daily with meals. . ibuprofen (MOTRIN) 800 mg tablet take 1 tablet by mouth every 8 hours with food if needed for pain colestipol (COLESTID) 1 gram tablet Take 1 tablet by mouth once daily. For Diarrhea Post Gall Bladder Removal EPINEPHrine (EPIPEN) 0.3 mg/0.3 mL auto-injector Use for allergic reaction Lancets lancets Test blood sugar(s)2 times daily. Dx: uncontrolled type 2 DM insulin needles, DISPOSABLE, (BD INSULIN PEN NEEDLE UF) 31 gauge x 5/16" use once daily as directed blood sugar diagnostic (BLOOD GLUCOSE TEST) test strip Test blood sugar(s) 2 times daily. Dx: uncontrolled type 2 DM ibuprofen (MOTRIN) 800 mg tablet Take 1 tablet by mouth every 8 hours as needed. FOR PAIN. famotidine (PEPCID) 40 mg tablet Take 40 mg by mouth as needed. ofloxacin (OCUFLOX) 0.3 % ophthalmic solution Place 4 drops to right ear 3 times daily for 7 days. (Patient not taking: No sig reported) Phenyleph-Shark Trz-Mxkn-Bkb (HEMORRHOIDAL) 0.25-3-12 % crea by RECTAL route twice daily. albuterol HFA (PROAIR HFA) 90 mcg/actuation inhaler Inhale 2 Puffs as instructed every 6 hours as needed. (Patient not taking: No sig reported) clotrimazole-betamethasone (LOTRISONE) cream Apply 1 application to affected area twice daily. (Patient not taking: No sig reported) No current facility-administered medications on file prior to visit. Social History Social History Tobacco Use Smoking status: Never Smokeless tobacco: Never Vaping Use Vaping Use: Never used Substance Use Topics Alcohol use: Yes Comment: Rarely Drug use: No Review of Symptoms REVIEW OF SYSTEMS See HPI, otherwise negative EXAM: BP 132/86 (BP Site: Left Arm, BP Position: Sitting, BP Cuff Size: Regular Adult) Pulse 72 Resp 16 Wt 107 kg (236 lb) LMP 02/24/2021 (LMP Unknown) SpO2 98% BMI 34.56 kg/m General Appearance: Well appearing, alert, in no acute distress, well-hydrated, well nourished.. Lungs: Lungs clear to auscultation. No wheezing, rhonchi, rales.. Heart: RRR without murmur, gallop, or rubs. No ectopy. Extremities: Negative findings: Pulses: left 2+, No cyanosis, clubbing or edema, No erythema, induration, or nodules, Positive findings: questionable positive Bren's sign left leg. Musculoskeletal: No joint swelling, deformity, or tenderness. Peripheral Pulses: Normal, Capillary refill <2secs, strong peripheral pulses. Health Maintenance List DILATED RETINAL EXAM due on 03/17/2022 DTAP,TDAP,TD(1 - Tdap) due on 08/29/2022 PNEUMOCOCCAL(2 - PCV) due on 08/29/2022 INFLUENZA(1) due on 09/13/2022 COVID-19 VACCINE(1) due on 02/13/2023 HBA1C due on 05/14/2022 LDL CHOLESTEROL due on 11/30/2022 PAP TESTING due on 01/01/2023 HPV TESTING due on 01/01/2023 URINE ALBUMIN:CREATININE RATIO due on 02/13/2023 DIABETIC FOOT EXAM due on 02/13/2023 ANNUAL PCP TEAM CHRONIC DISEASE VISIT due on 02/13/2023 DEPRESSION ASSESSMENT Completed HEPATITIS C SCREENING Completed HIV SCREENING Completed Data reviewed Previous records, office notes, OARRS report PDMP website checked and validated. All prescriptions have been APPROPRIATELY filled. No suspiciousactivity was identified. 03/06/2022 by Ilana Herrera CNP. ASSESSMENT/PLAN: 1. Pain and swelling of left lower leg - ICD9: 729.5, 729.81, ICD10: M79.662, M79.89 (primary diagnosis) R/O acute DVT due to pain, questionable positive Bren's sign, recent elevated d-dimer, recent surgery to this extremity. Consider muscular pain d/t chronic use of boot. - OXYCODONE-ACETAMINOPHEN 5 MG-325 MG TABLET - US LEG VEIN DVT UNL VAS LAB - US DVT LOWER LT - US DVT LOWER LT - CBC - D-DIMER 2. Hx of foot surgery - ICD9: V15.29, ICD10: Z98.890 R/O acute DVT due to pain, questionable positive Bren's sign, recent elevated d-dimer, recent surgery to this extremity. Consider muscular pain d/t chronic use of boot. - OXYCODONE-ACETAMINOPHEN 5 MG-325 MG TABLET - US LEG VEIN DVT UNL VAS LAB - US DVT LOWER LT - US DVT LOWER LT - CBC - D-DIMER Ilana Herrera APRN.GUM COOK [facility] Hospital Discharge instructions Patient Education 03/03/2022 20:07:28 Pain, Acute, Uncertain Cause Acute Pain, Uncertain Cause Pain can be caused by many conditions that range from very minor to very serious. In some cases, though, pain comes and goes with no apparent cause. We were not able to find the exact cause for your pain. At this time there is no sign of any serious illness causing your pain. More tests may be needed to determine the cause. In many cases, pain like this goes away by itself. Home care Take any medicines as prescribed. If another medicine was not prescribed for pain, you can take an hqau-viy-awmfrvd pain medicine such as ibuprofen or acetaminophen. Use these as directed on the label. Follow-up care Follow up with your healthcare provider or our staff as directed. When to seek medical advice Call your healthcare provider for any of the following: Pain changes in pattern Pain doesn't lessen or gets worse New symptoms appear Fever of 100.4 F (38 C) or higher, or as directed by your healthcare provider [id number] [employer] [place] [address]. All rights reserved. This information is not intended as a substitute for professional medical care. Always follow yourhealthcare professional's instructions. Follow Up Care 03/03/2022 15:06:01 With:GIGI CARRILLO DO Address: [address] [place] [phone] When:2-4 days [facility] 12-18-2022 Emergency department Discharge summary Discharge Instructions Thank you for allowing [facility] to assist you with your healthcare needs. The following is importantdischarge information regarding your hospital visit. Diagnosis from Today's Visit Calf pain Leg pain-swelling What to Do Next Instructions from Your Care Team Please call the following number to schedule your ultrasound to assess for blood clots tomorrow morning-call [phone] at 7:30am to schedule a same day appointment for testing. Please be aware there may be a short wait time. You were given a dose of a blood thinner here which will cover for any possible blood clots until your ultrasound tomorrow. Follow close with your doctor. Return if any worsening or concerning symptoms. Discharge ED Outpatient Vascular Lab - Ordered -- Test Requested: venous duplex, Lower extremity, Left, Test Reason: Pain, Mon- Fri 8am-4:30pm: Call [phone] at 7:30am to schedule a same day appointment for testing. Please be aware there may be a short wait time. Post Acute Orders No qualifying data available. You Need to Schedule the Following Appointments Follow Up with GIGI CARRILLO DO When Within 2-4 days Where: [address] [place] [address]- Allergies macadamia nut (throat swelling, hives) Medications Please ask your primary doctor or pharmacist before taking any other medication not listed, including over the counter drugs, herbal medications, vitamins and or supplements as they may interact withyour home medications. What How Much When Instructions Last Dose Unchanged colestipol (colestipol 1 g oral tablet) 1 tab(s) by mouth Once a day Unchanged liraglutide (Victoza 18 mg/ 3 mL subcutaneous Pen (NF)) 1.8 Milligram Subcutaneous Once a day Unchanged metFORMIN (metFORMIN 500 mg oral tablet) 1 tab(s) by mouth Two (2) times a day Please take this list to your next doctor s visit. Bring all medications you take, including over the counter medications, herbals and other supplements with you to your doctor s visit. Patients and families are reminded to discard old lists and to update any records with all medication providers or retail pharmacies. Education Materials Acute Pain, Uncertain Cause Pain can be caused by many conditions that range from very minor to very serious. In some cases, though, pain comes and goes with no apparent cause. We were not able to find the exact cause for your pain. At this time there is no sign of any serious illness causing your pain. More tests may be needed to determine the cause. In many cases, pain like this goes away by itself. Home care Take any medicines as prescribed. If another medicine was not prescribed for pain, you can take an klrk-ctw-aexocxj pain medicine such as ibuprofen or acetaminophen. Use these as directed on the label. Follow-up care Follow up with your healthcare provider or our staff as directed. When to seek medical advice Call your healthcare provider for any of the following: Pain changes in pattern Pain doesn't lessen or gets worse New symptoms appear Fever of 100.4 F (38 C) or higher, or as directed by your healthcare provider [phone] [employer]. [address] [place] [address]. All rights reserved. This information is not intended as a substitute for professional medical care. Always follow yourhealthcare professional's instructions. Additional Information VACCINATE! IT SAVES LIVES! Members of the community who have not yet received the COVID-19 vaccine and would like to receive it can visit one of [facility] vaccine clinics. There are many vaccine clinic locations within the [facility]. For locations and available times, please visit [email or web address]. It is important to note that some COVID mobile vaccine clinics are held outdoors and may be canceled in rainy orstormy conditions. To learn more about pediatric vaccinations (ages 5-11), we invite you to visit the [facility] webpage. [email or web address] [email or web address] learn more about the COVID-19 vaccine, we invite you to visit the [facility] website for a list of frequently asked questions. [email or web address].[facility]/assets/[email or web address]-[email or web address]/dzekm-Ghcrwey-[email or web address] _Asked-Questions.pdf [facility] [employer] Patient Portal Access Instructions: Stay connected with your healthcare team and access your personal medical information anytime with the [facility] [employer] Patient Portal. If you would like a full copy of your medical records please contact the [facility] Medical Records Department Friday through Friday between 8a.m. and 4:30p.m. Please follow the directions below to access the portal: 1.Access the email account you provided upon registration to the [facility].2.Look for an invitation email from [facility].3.Open the email and access the invitation link: Accept Invitation to [facility].Fill in the required culver to create your account. Sign into www.Nosto with your username and password that you created in the above steps to stay up to date. You can then view a summary of results, a summary of your visits, and the ability to download your summaries to your computer or send the information securely to a physician. Remember that your healthcare information is confidential, so carefully consider who you will allow to register on the [facility] Patient Portal for access to your information. You can also access the [facility] Patient Portal on the SendGrid. Simply click on "Health Records" under "[email or web address]" and then click on the Optimus3 logo. HOW TO SAFELY DISPOSE OF PRESCRIPTION MEDICATIONS Please use one of the following methods to safely dispose of your unused medications. 1.Use a drug disposal kit: the drug disposal pouch allows you to safely discard your old and unuseddrugs. Ask your nurse to give you one when you are discharged.2.Visit a local take-back location: Many local pharmacies and police departments have programs that collect old and unwanted prescriptiondrugs. Call your local pharmacy or go to http://Vizimax.[employer]/4X3Xe9k to find one close to you.3.Make use of household items: Use cat litter or old coffee grounds to dispose medications if other options arenot available. Mix your drugs with these household products, seal them in an airtight container andthrow it into the garbage. Call [facility]: [phone] to be sure your drugs can be disposed of in this way. Some medicines may require a different approach.4.Never flush your medications down the toilet. IF YOU HAVE BEEN PRESCRIBED AN OPIOIDS FOR PAIN If you have been prescribed an opioid (such as hydrocodone, oxycodone or morphine), it is critical to understand the possible side effects and risks of opioid pain medications. Even when taken as directed, opioids can have several side effects including: Tolerance, meaning you might need to take more of a medication for the same pain relief. Nausea, vomiting and/or constipation. Sleepiness, dizziness, dry mouth, confusion, depression or itching. Physical dependence, meaning you have withdrawal symptoms when a medication is stopped ? this can develop within a few days. KNOW YOUR RESPONSIBILITIES It is important to know exactly how much and how often to take the opioid pain medications you are prescribed. Never take opioids in higher amounts or more often than prescribed. Do not combine opioids with alcohol or other drugs that cause drowsiness, such as benzodiazepines, also known as benzos,including diazepam and alprazolam, muscle relaxants or sleep aids. Never sell or share prescriptionopioids. This is illegal. Store opioids in a secure place and out of reach of others (including children, family, friends and visitors). The last page(s) of this document has been signed and retained as a CHART COPY Signatures Patient Education Materials Pain, Acute, Uncertain Cause Medication Leaflets My discharge plan and instructions have been reviewed and explained to me and I,CANDELARIA GRANT understand my current condition and have read and understand these discharge instructions. I have received a written copy of the plan/instructions. If I have questions, I am aware that I should contact my doctor. Patient/School Based Therapist Signature: Date/Time: Relationship to Patient: Witness Name/Signature: Date/Time: [facility]12-18-2022 Note ORIGINAL EXAMINATION: CTA OF THE CHEST03/03/2022 7:08 pm CTA CHEST WITH CONTRAST TECHNIQUE: CTA of the chest was performed after the administration of intravenous contrast. Multiplanar reformatted images are provided for review. MIP images are provided for review. Automated exposure control, iterative reconstruction, and/or weight based adjustment of the mA/kV was utilized to reduce the radiation dose to as low as reasonably achievable. CTA of the thorax was acquired in the axial plane. Coronal and sagittal reformatted images were reviewed. Three dimensional reconstructions were created on a separate workstation. This exam was performed according to our departmental dose optimization program, and includes the following measures where applicable: automated exposure control, adjustment of the mAs and/or kVp according to patient size and/or exam, and an iterative reconstruction algorithm. COMPARISON: None HISTORY: ORDERING SYSTEM PROVIDED HISTORY: Reason for Exam: chest pain; suspect PE FINDINGS: Pulmonary Arteries:Main pulmonary artery is nondilated. Contrast bolus is adequate to exclude pulmonary arterial embolus to the distal segmental level. No evidence of right heart strain. Mediastinum: Thoracic aorta is normal in size. Heart is normal in size. No pericardial effusion. No pathologically enlarged mediastinal or hilar lymph nodes by size criteria. Lungs: Central tracheobronchial tree is patent. No focal consolidation, pneumothorax, or pleural effusion. Upper Abdomen:Visualized portions of the upper abdomen demonstrate patient is status post cholecystectomy. Bones/Soft Tissues: No evidence of acute fracture. Soft tissues are grossly unremarkable. IMPRESSION: No evidence of pulmonary embolus. Interpreted by: Hao Scruggs Preliminary Report By: Hao Scruggs Electronically signed By Hao Scruggs Dictated Date: 03/03/2022 7:40:19 PM Prelim Date: 03/03/2022 7:46:17 PM Sign Date: 03/03/2022 7:46:17 PM Ordering Provider: MICHEL MARIE [facility]12-18-2022 Note ORIGINAL EXAMINATION: CTA OF THE CHEST03/03/2022 7:08 pm CTA CHEST WITH CONTRAST TECHNIQUE: CTA of the chest was performed after the administration of intravenous contrast. Multiplanar reformatted images are provided for review. MIP images are provided for review. Automated exposure control, iterative reconstruction, and/or weight based adjustment of the mA/kV was utilized to reduce the radiation dose to as low as reasonably achievable. CTA of the thorax was acquired in the axial plane. Coronal and sagittal reformatted images were reviewed. Three dimensional reconstructions were created on a separate workstation. This exam was performed according to our departmental dose optimization program, and includes the following measures where applicable: automated exposure control, adjustment of the mAs and/or kVp according to patient size and/or exam, and an iterative reconstruction algorithm. COMPARISON: None HISTORY: ORDERING SYSTEM PROVIDED HISTORY: Reason for Exam: chest pain; suspect PE FINDINGS: Pulmonary Arteries:Main pulmonary artery is nondilated. Contrast bolus is adequate to exclude pulmonary arterial embolus to the distal segmental level. No evidence of right heart strain. Mediastinum: Thoracic aorta is normal in size. Heart is normal in size. No pericardial effusion. No pathologically enlarged mediastinal or hilar lymph nodes by size criteria. Lungs: Central tracheobronchial tree is patent. No focal consolidation, pneumothorax, or pleural effusion. Upper Abdomen:Visualized portions of the upper abdomen demonstrate patient is status post cholecystectomy. Bones/Soft Tissues: No evidence of acute fracture. Soft tissues are grossly unremarkable. IMPRESSION: No evidence of pulmonary embolus. Interpreted by: Hao Scruggs Preliminary Report By: Hao Scruggs Electronically signed By Hao Scruggs Dictated Date: 03/03/2022 7:40:19 PM Prelim Date: 03/03/2022 7:46:17 PM Sign Date: 03/03/2022 7:46:17 PM Ordering Provider: [facility]12-18[facility]2022 Note ORIGINAL EXAMINATION: TWO XRAY VIEWS OF THE CHEST 03/03/2022 6:10 pm COMPARISON: None. HISTORY: ORDERING SYSTEM PROVIDED HISTORY: Reason for Exam: SOB/Cough/Fever FINDINGS: Cardiomediastinal silhouette is within normal limits. No focal consolidation, vascular congestion, large pleural effusion or pneumothorax. Bilateral nipple piercings are noted. The osseous structures appear intact. IMPRESSION: No acute radiographic findings. I have reviewed the resident's preliminary report and agree with findings and impression. Interpreted by: Hao Scruggs Preliminary Report By: Karlos Yusuf Electronically signed By Hao Scruggs Dictated Date: 03/03/2022 6:34:50 PM Prelim Date: 03/03/2022 6:35:53 PM Sign Date: 03/03/2022 6:37:47 PM Ordering Provider: [facility]12-18-2022 Note ORIGINAL EXAMINATION: TWO XRAY VIEWS OF THE CHEST 03/03/2022 6:10 pm COMPARISON: None. HISTORY: ORDERING SYSTEM PROVIDED HISTORY: Reason for Exam: SOB/Cough/Fever FINDINGS: Cardiomediastinal silhouette is within normal limits. No focal consolidation, vascular congestion, large pleural effusion or pneumothorax. Bilateral nipple piercings are noted. The osseous structures appear intact. IMPRESSION: No acute radiographic findings. I have reviewed the resident's preliminary report and agree with findings and impression. Interpreted by: Hao Scruggs Preliminary Report By: Karlos Yusuf Electronically signed By Hao Scruggs Dictated Date: 03/03/2022 6:34:50 PM Prelim Date: 03/03/2022 6:35:53 PM Sign Date: 03/03/2022 6:37:47 PM Ordering Provider: [facility]12[facility]22 Miscellaneous Notes* Telephone Encounter - Gill Palomo Ma - 02/19/2022 11:07 AM EST PA received and does not need PA at this time. Patient picked up on 02/13 Gill Palomo Ma * Telephone Encounter - Gill Palomo Ma - 02/13/2022 3:38 PM EST Prior Authorization has been completed online at [facility] for Leena, will await response. MCPHERSON: [id number] Please keep encounter open until final decision has been received and documented from insurance company. Gill Palomo MA documented [facility] Miscellaneous Notes* Telephone Encounter - Pat Godoy Ma - 02/14/2022 1:56 PM EST Pt notified of results via Banno. Pat Godoy Ma * Telephone Encounter - Polly Quintero APRN.CNP - 02/14/2022 1:33 PM EST Please call patient and let her know lab work is back. HgA1c is much worse than prior. Please continue DM regimen change as discussed and follow-up in 1 month. Please instruct pt to haveclose blood glucose monitoring a few times per day due to change in medications. Thank you, Polly Quintero APRN.CNP documented in this [facility]Hol[facility]11-30-[facility]22 History of Present illness Narrative* Polly Hernadezmindy, KATRIN.GUM COOK - 02/13/2022 1:20 PM EST Chief Complaint Patient presents with: Physical HPI Candelaria Grant is a 36 year old female who presents here today for Above Complaints. Candelaria is an established patient of Dr. Carrillo, DO and myself. Concerns today... DM --- On metformin 500 mg BID, Januvia 100 mg daily, and victoza 1.8 mg daily. Had BEHAVIOR THERAPIST from insurance [employer] come to house that suggested patient be on Trulicity and come off of all other DM medications. Pt would like to try this. Last hgA1c was 7.6 -- 3 months ago. Trying to get emilia for continuous monitoring of BG. Checks BG at home sometimes - been "normal" per pt Denies polyuria, polydipsia, numbness, tingling or pain in extremities, new or unusual visual symptoms, unintended weight changes, lightheadedness/dizziness, bowel changes/loose stools, chest pain ordyspnea Last eye exam: March - normal. GERD -- Pepcid 40 mg as needed. Rarely takes this. BP stable without medication regimen. No dx of HTN. No other concerns or complaints. Past medical history, appointments, medications, allergies reviewed. Previous Medical History PAST MEDICAL HISTORY Diagnosis Date Abnormal Pap smear of cervix ascus cannot rule out high grade Diabetes mellitus type 2 in obese (HCC) Migraine headache Obesity Previous Surgical History PAST SURGICAL HISTORY Procedure Laterality Date SECTION HX 03/24/2013 CHOLECYSTECTOMY HX INSERTION OF IUD 2016 Mirena IUD removed 10/20/2020 KYLEENA IUD 10/20/2020 NEXPLANON INSERTION 05/10/2013 OSTECTOMY CALCANEUS SPUR W/WO PLNTAR FASCIAL RLS Left Dr. Jimenez REPAIR OF NASAL SEPTUM Family History FAMILY HISTORY Problem Relation Age of Onset No Known Problems Mother Cancer Father pancreatic and renal. No Known Problems Brother No Known Problems Maternal Grandmother Diabetes Maternal Grandfather Diabetes Paternal Grandfather No Known Problems Son Breast Cancer Maternal Aunt Cervical Cancer Paternal Aunt x2- and one cousin other (lymphomia) Other maternal cousin other (leukemia) Other cousin Patient Allergies ALLERGIES Allergen Reactions Macadamia Nut Oil Hives, Swelling, Shortness of Breath Meloxicam Intolerance Headache Current Medications Current Outpatient Medications on File Prior to Visit Medication Sig metFORMIN (GLUCOPHAGE) 500 mg tablet Take 1 tablet by mouth twice daily with meals. . ofloxacin (OCUFLOX) 0.3 % ophthalmic solution Place 4 drops to right ear 3 times daily for 7 days. (Patient not taking: No sig reported) ibuprofen (MOTRIN) 800 mg tablet take 1 tablet by mouth every 8 hours with food if needed for pain flash glucose scanning reader (FREESTYLE EMILIA 14 DAY READER) use as directed. Dx: Uncontrolled type 2 diabetes without insulin. flash glucose sensor (FREESTYLE EMILIA 14 DAY SENSOR) kit Apply and use as directed. Dx: Uncontrolled type 2 diabetes without insulin. Phenyleph-Shark Xiz-Odxn-Mfc (HEMORRHOIDAL) 0.25-3-12 % crea by RECTAL route twice daily. colestipol (COLESTID) 1 gram tablet Take 1 tablet by mouth once daily. For Diarrhea Post Gall Bladder Removal EPINEPHrine (EPIPEN) 0.3 mg/0.3 mL auto-injector Use for allergic reaction cyclobenzaprine (FLEXERIL) 10 mg tablet Take 1 tablet by mouth three times daily as needed for muscle spasm. (Patient not taking: Reported on 01/20/2022) Lancets lancets Test blood sugar(s)2 times daily. Dx: uncontrolled type 2 DM meclizine (ANTIVERT) 25 mg tab Take 1 tablet by mouth three times daily as needed (dizziness). (Patient not taking: Reported on 01/20/2022) liraglutide (VICTOZA) 0.6 mg/ 0.1 ml subcutaneous pen injector inject 1.8 milligram subcutaneously once daily insulin needles, DISPOSABLE, (BD INSULIN PEN NEEDLE UF) 31 gauge x 5/16" use once daily as directed SITagliptin (JANUVIA) 100 mg tablet Take 1 tablet by mouth once daily. albuterol HFA (PROAIR HFA) 90 mcg/actuation inhaler Inhale 2 Puffs as instructed every 6 hours as needed. (Patient not taking: Reported on 01/20/2022) blood sugar diagnostic (BLOOD GLUCOSE TEST) test strip Test blood sugar(s) 2 times daily. Dx: uncontrolled type 2 DM clotrimazole-betamethasone (LOTRISONE) cream Apply 1 application to affected area twice daily. (Patient not taking: Reported on 01/20/2022) ibuprofen (MOTRIN) 800 mg tablet Take 1 tablet by mouth every 8 hours as needed. FOR PAIN. famotidine (PEPCID) 40 mg tablet Take 40 mg by mouth as needed. No current facility-administered medications on file prior to visit. Social History Social History Tobacco Use Smoking status: Never Smokeless tobacco: Never Vaping Use Vaping Use: Never used Substance Use Topics Alcohol use: Yes Comment: Rarely Drug use: No REVIEW OF SYSTEMS: as above Reviewed relevant PMHx, PSHx, Social Hx, current medications and allergies. Review of Symptoms REVIEW OF SYSTEMS See HPI. EXAM: BP 120/80 (BP Site: Left Arm, BP Position: Sitting, BP Cuff Size: Large Adult) Pulse 64 Resp 16 Ht 176 cm (5' 9.29") Wt 105.3 kg (232 lb 3.2 oz) LMP 02/24/2021 (LMP Unknown) BMI 34.00 kg/m General Appearance: Well appearing, alert, in no acute distress, well-hydrated, well nourished.. Skin: Skin color, texture, turgor normal, no suspicious rashes or lesions. Head: Normocephalic, no masses, lesions, tenderness or abnormalities. Lungs: Lungs clear to auscultation. No wheezing, rhonchi, rales.. Heart: RRR without murmur, gallop, or rubs. No ectopy. Abdomen: Normal abdominal exam, Abdomen soft, non-tender. Bowel sounds normal. No masses, organomegaly. Extremities: No deformities, edema, skin discoloration, clubbing or cyanosis. Good capillary refill. . Musculoskeletal: No joint swelling, deformity, or tenderness. Peripheral Pulses: Normal. Neurologic: Gait normal. Reflexes normal and symmetric. Sensation grossly intact. Feet:Shoes and socks removed, No deformities, ulcers, calluses, normal distal pulses, and sensitiveto 10 gm monofilament Health Maintenance List COVID-19 VACCINE(1) Never done DIABETIC FOOT EXAM due on 11/12/2019 DILATED RETINAL EXAM due on 03/26/2020 DEPRESSION ASSESSMENT Never done URINE ALBUMIN:CREATININE RATIO due on 09/25/2021 DTAP,TDAP,TD(1 - Tdap) due on 08/29/2022 PNEUMOCOCCAL(2 - PCV) due on 08/29/2022 INFLUENZA(1) due on 09/13/2022 HBA1C due on 05/30/2022 LDL CHOLESTEROL due on 11/30/2022 ANNUAL PCP TEAM CHRONIC DISEASE VISIT due on 11/30/2022 PAP TESTING due on 01/01/2023 HPV TESTING due on 01/01/2023 HEPATITIS C SCREENING Completed HIV SCREENING Completed ASSESSMENT/PLAN: 1. Uncontrolled type 2 diabetes mellitus with hyperglycemia (HCC) - ICD9: 250.02, ICD10: E11.65 (primary diagnosis) uncontrolled - Add Trulicity as requested. - Continue on metformin. - Discontinue sitagliptin phosphate (Januvia) and victoza. DC januvia d/t no benefit on DPP and GLP-1 together. DX victoza due to switching to trulicity regimen (different glp-1) as requesting. - Blood glucose monitoring on a twice a day schedule - Encouraged regular aerobic exercise and weight loss - Follow up in 1 month, sooner should any other issues arise, to recheck BG levels with changing regimen. 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 - BP goal of <130/80 - LDL goal of <100 - ALBUMIN/CREAT RATIO RND UR - HGB A1C - TRULICITY 0.75 MG/0.5 ML SUBCUTANEOUS PEN INJECTOR - FREESTYLE EMILIA 14 DAY READER - FREESTYLE EMILIA 14 DAY SENSOR KIT - COMP METABOLIC PANEL - CBC + DIFF 2. Obesity (BMI 30-39.9) - ICD9: 278.00, ICD10: E66.9 Stable - Behavioral intervention, - Pharmacological intervention, - Eat well program, and - Continue current medications 3. Hyperlipidemia LDL goal <100 - ICD9: 272.4, ICD10: E78.5 - good control - Encouraged following a low fat, low cholesterol diet. - Discussed the benefits of regular aerobic exercise and weight loss. - Encouraged following a low carbohydrate, healthy oil intake diet. - Continue current therapy. - COMP METABOLIC PANEL - CBC + DIFF 4. Wellness examination - ICD9: V70.0, ICD10: Z00.00 - Counseled on healthy diet and regular exercise - Calcium intake with supplements or by diet of 1000 mg/day for under 50, 1200- 1500 mg/day for 50+ - Discussed need and benefit for weight loss. BMI 34.00 kg/(m^2) - Depression screening tool completed and reviewed with patient. Based on score and interview, patient is not at risk for depression and recommended no further intervention at this time. - Follow up for annual exam in one year RTO in 1 months, sooner if needed. Prescription instructions reviewed with patient as applicable. Potential red flag symptoms discussed with the patient. Reviewed appropriate action plan to take if red flag symptoms occur. Patient agreeable to treatment plan. Polly Quintero APRN.[employer] [address] [place] [address] documented in this encounterHolzer Health System11-06-2022 Miscellaneous Notes* Addendum Note - Catracho Wan APRN.CNP - 01/20/2022 1:44 PM ESTAddended by: CATRACHO WAN on: 01/20/2022 01:44 PM Modules accepted: Orders documented in this encounterHolzer Health System11-06-2022 History of Present illness Narrative* Catracho Wan APRN.CNP - 01/20/2022 1:34 PM EST CC: Patient presents with: Cough: Congestion, right side of face pain, diarrhea x 1 week HPI: Candelaria Grant is a 36 year old female who presents to the office with complaint of head congestion, cough, nonproductive, and sinus symptoms for a week. Symptoms are worsening Associated symptoms includes cough. Denies nausea, vomiting , and diarrhea. Treatments tried include nothing so far. with no relief of symptoms. Sick contacts: unknown. History of asthma, frequent episodes of bronchitis, chronic bronchitis, bronchiectasis or COPD: No Smoker: No Seasonal/environmental allergies: No The ROS is otherwise negative. The patient's pmh, medications, allergies, and past visits are reviewed. PHYSICAL EXAM: BP 138/90 Pulse 90 Temp 36.8 C (98.3 F) Resp 16 Wt 103 kg (227 lb) LMP 02/24/2021 (LMP Unknown) SpO2 98% BMI 33.52 kg/m General appearance: alert, cooperative, pleasant, in no acute distress Head: Normocephalic Eyes: EOM's intact, conjunctiva pink and moist, no icterus, sclera white, non-injected Ears: Right ear: External ear/canal- Normal, TM - clear with good landmarks. Left ear: External ear/canal- Normal, TM - clear with good landmarks Oropharynx:moist without lesions, No erythema, exudates or tonsillar hypertrophy. Heart: Negative. RRR without obvious murmur, gallop, or rubs. No ectopy. Lungs: clear to auscultation, without rales or wheeze, good air exchange PAST MEDICAL HISTORY Diagnosis Date Abnormal Pap smear of cervix ascus cannot rule out high grade Diabetes mellitus type 2 in obese (HCC) Migraine headache Obesity PAST SURGICAL HISTORY Procedure Laterality Date SECTION HX 03/24/2013 CHOLECYSTECTOMY HX INSERTION OF IUD 2016 Mirena IUD removed 10/20/2020 KYLEENA IUD 10/20/2020 NEXPLANON INSERTION 05/10/2013 OSTECTOMY CALCANEUS SPUR W/WO PLNTAR FASCIAL RLS Left Dr. Jimenez REPAIR OF NASAL SEPTUM ALLERGIES Macadamia Nut Oil and Meloxicam MEDICATIONS metFORMIN (GLUCOPHAGE) 500 mg tablet Take 1 tablet by mouth twice daily with meals. . ibuprofen (MOTRIN) 800 mg tablet take 1 tablet by mouth every 8 hours with food if needed for pain flash glucose scanning reader (FREESTYLE EMILIA 14 DAY READER) use as directed. Dx: Uncontrolled type 2 diabetes without insulin. flash glucose sensor (FREESTYLE EMILIA 14 DAY SENSOR) kit Apply and use as directed. Dx: Uncontrolled type 2 diabetes without insulin. colestipol (COLESTID) 1 gram tablet Take 1 tablet by mouth once daily. For Diarrhea Post Gall Bladder Removal EPINEPHrine (EPIPEN) 0.3 mg/0.3 mL auto-injector Use for allergic reaction Lancets lancets Test blood sugar(s)2 times daily. Dx: uncontrolled type 2 DM liraglutide (VICTOZA) 0.6 mg/ 0.1 ml subcutaneous pen injector inject 1.8 milligram subcutaneously once daily insulin needles, DISPOSABLE, (BD INSULIN PEN NEEDLE UF) 31 gauge x 5/16" use once daily as directed SITagliptin (JANUVIA) 100 mg tablet Take 1 tablet by mouth once daily. blood sugar diagnostic (BLOOD GLUCOSE TEST) test strip Test blood sugar(s) 2 times daily. Dx: uncontrolled type 2 DM ibuprofen (MOTRIN) 800 mg tablet Take 1 tablet by mouth every 8 hours as needed. FOR PAIN. famotidine (PEPCID) 40 mg tablet Take 40 mg by mouth as needed. amoxicillin-clavulanic acid (AUGMENTIN) 875-125 mg per tablet Take 1 tablet by mouth twice daily for 5 days. ofloxacin (OCUFLOX) 0.3 % ophthalmic solution Place 4 drops to right ear 3 times daily for 7 days. (Patient not taking: No sig reported) Phenyleph-Shark Xze-Wzvv-Dtn (HEMORRHOIDAL) 0.25-3-12 % crea by RECTAL route twice daily. cyclobenzaprine (FLEXERIL) 10 mg tablet Take 1 tablet by mouth three times daily as needed for muscle spasm. (Patient not taking: Reported on 01/20/2022) meclizine (ANTIVERT) 25 mg tab Take 1 tablet by mouth three times daily as needed (dizziness). (Patient not taking: Reported on 01/20/2022) albuterol HFA (PROAIR HFA) 90 mcg/actuation inhaler Inhale 2 Puffs as instructed every 6 hours as needed. (Patient not taking: Reported on 01/20/2022) clotrimazole-betamethasone (LOTRISONE) cream Apply 1 application to affected area twice daily. (Patient not taking: Reported on 01/20/2022) FAMILY HISTORY Problem Relation Age of Onset No Known Problems Mother Cancer Father pancreatic and renal. No Known Problems Brother No Known Problems Maternal Grandmother Diabetes Maternal Grandfather Diabetes Paternal Grandfather No Known Problems Son Breast Cancer Maternal Aunt Cervical Cancer Paternal Aunt x2- and one cousin other (lymphomia) Other maternal cousin other (leukemia) Other cousin Social History Tobacco Use Smoking status: Never Smokeless tobacco: Never Vaping Use Vaping Use: Never used Substance Use Topics Alcohol use: Yes Comment: Rarely Drug use: No ASSESSMENT/PLAN: 1. At increased risk of exposure to COVID-19 virus - ICD9: V15.89, ICD10: Z91.89 (primary diagnosis) - COVID WITH FLUA+B, ROUTINE 2. Acute cough - ICD9: 786.2, ICD10: R05.1 Augmenting bid for 5 days Prescription instructions reviewed with patient as applicable. Potential red flag symptoms discussed with the patient. Reviewed appropriate action plan to take if red flag symptoms occur. Patient agreeable to treatment plan. Catracho Wan APRN.[employer] documented in this encounterHolzer Health System10-26-2022 Miscellaneous Notes* Telephone Encounter - Goldie Milton LPN - 01/09/2022 9:50 AM EDT Spoke with pt gave information provided. Pt voices understanding. * Telephone Encounter - Ilana Herrera APRN.CNP - 01/09/2022 8:45 AM EDT It should be the metformin two tablets twice daily. The following approved medication requests have been transmitted electronically. Requested Prescriptions Signed Prescriptions Disp Refills metFORMIN (GLUCOPHAGE) 500 mg tablet 60 tablet 11 Sig: Take 1 tablet by mouth twice daily with meals. . Authorizing Provider: ILANA HERRERA APRN.CNP * Telephone Encounter - Erica Ayon LPN - 01/08/2022 10:04 AM EDT Pt calls to report she has two rx for Metformin. One is metformin 500 mg - 1 tab twice daily. The other is metformin ER 500 mg - take 3 tabs daily with breakfast. Please see result message from 12/03/21. Then there is a refill request from 12/16/21. Please review and advise. Erica Ayon LPN documented in this encounterHolzer Health System10-25-2022 Miscellaneous Notes* Telephone Encounter - Erica Ayon LPN - 01/08/2022 10:08 AM EDT Pt calls for refill of colestipol 1 g. Called Moniquee Pepe to review rx sent to pharmacy 08/10/21. Pharmacist reports they do have that on pt's file and will get rx filled. Erica Ayon LPN documented in this encounterHolzer Health System10-20-2022 Miscellaneous Notes* Telephone Encounter - Helene Arzate Ma - 01/03/2022 12:18 PM EDT Pt informed, verbalized understanding. Helene Arzate Ma * Telephone Encounter - Polly Quintero APRN.CNP - 01/03/2022 10:46 AM EDT Rx sent. If no improvement after both doses or yeast infection reoccurs within the next few weeks, she Needs office visit. Please encourage patient to check blood glucose at home. The following approved medication requests have been transmitted electronically. Requested Prescriptions Signed Prescriptions Disp Refills fluconazole (DIFLUCAN) 150 mg tablet 2 tablet 0 Sig: Take 1 tablet by mouth one time only for 1 dose. Repeat in 3 days as needed. Authorizing Provider: POLLY QUINTERO APRN.KEEGAN * Telephone Encounter - Elvis Up LPN - 01/03/2022 10:41 AM EDT Patient said she completed antibiotics that she was given. Patient said she has yeast infection, she had foot surgery. Patient has not been able to check her blood sugars no idea what they are lately. Patient asking for diflucan rx to be sent to [facility] pharmacy. Aware PCP and Maricel Herrera are not in office today. Patient said she can not come in for appt. Please advise * Telephone Encounter - Marina Preston - 01/03/2022 10:29 AM EDT Patient is requesting Diflucan for yeast infection following oral antibiotics for post op treatment. Patient was transferred to triage nurse for additional assistance with questions about current medication regiment. documented in this encounterHolzer Health System10-14-2022 Evaluation + Plan note Extracted from: Title:Clinical Document Author:SERGEY JIMENEZ PM Date:12/28/21 [place] ADMISSION HISTORY AN D PHYSICIAL CHIEF COMPLAINT: HISTORY OF PRESENT ILLNESS: REVIEW OF SYSTEMS: ACTIVE PROBLEMS: (8) Diabetes (412192265) Diarrhea (314052569) HTN (hypertension) (0637647774) Kidney failure (72137712) OK (myocardial infarction) (61754926) Migraine (64986743) Plantar fasciitis of left foot ([id number]) TMJ (temporomandibular joint syndrome) (60258083) MEDICATIONS: Active Inpt Meds: cefOXitin Start: 12/28/21 7:10:00 EDT, Dose = 1 gram(s), IV Piggyback, PREOP pharm, Rate: 200 mL/hr, Infuse over: 30 minute(s), 0, 12/28/21 7:10:00 EDT Active PRN Meds: None One Time Meds: None Active IV Meds: Lactated Ringers Infusion 1,000 mL (LR 1,000 mL) Start: 12/28/21 7:10:00 EDT, Rate: 125 mL/hr, 12/28/21 7:10:00 EDT ALLERGIES: (1) macadamia nut FAMILY HISTORY: SOCIAL HISTORY: PHYSICAL EXAM: VITALS: [id number](kg) 12/28 07:1136.3146/[id number]/18624.0 24 Hr Tmax: 36.3 at 12/28 07:11 36 Hr Tmax: 36.3 at 12/28 07:11 Vital Signs are the last 5 in the past 48 hours. Weights display the last 5 within 7 days. Initial Wt: 12/28 100.0 kg 220 lb Current Wt: 12/28 100.0 kg 220 lb GENERAL: HEENT: CARDIOVASCULAR: RESPIRATORY: ABDOMEN: EXREMETIES: NEUROLOGICAL: PSYCHIATRIC: LABS: 36hr Labs 12/28 0616 TestSee Flowsheet testSee Flowsheet 12/28 0711 Blood Glucose, [id number] Blood Glucose, [id number] DIAGNOSTICS: IMPRESSION: PLAN: History and Physical Update I have examined the patient; reviewed the H&P and there are no changes to the H&P unless noted below. [facility] 10-14-2022 Hospital Discharge instructions Patient Education 12/28/2021 08:49:58 Nausea and Vomiting, Adult Nausea and Vomiting, Adult Nausea is the feeling that you have an upset stomach or that you are about to vomit. Vomiting is when stomach contents are thrown up and out of the mouth as a result of nausea. Vomiting can make you feel weak and cause you to become dehydrated. Dehydration can make you feel tired and thirsty, cause you to have a dry mouth, and decrease how often you urinate. Older adults and people with other diseases or a weak disease-fighting system (immune system) are at higher risk for dehydration. It is important to treat your nausea and vomiting as told by your health care provider. Follow these instructions at home: Watch your symptoms for any changes. Tell your health care provider about them. Follow these instructions to care for yourself at home. Eating and drinking Take an oral rehydration solution (ORS). This is a drink that is sold at pharmacies and retail stores. Drink clear fluids slowly and in small amounts as you are able. Clear fluids include water, ice chips, low-calorie sports drinks, and fruit juice that has water added (diluted fruit juice). Eat bland, vchc-wa-chtwik foods in small amounts as you are able. These foods include bananas, applesauce, rice, lean meats, toast, and crackers. Avoid fluids that contain a lot of sugar or caffeine, such as energy drinks, sports drinks, and soda. Avoid alcohol. Avoid spicy or fatty foods. General instructions Take fyrt-xgu-ycnesui and prescription medicines only as told by your health care provider. Drink enough fluid to keep your urine pale yellow. Wash your hands often using soap and water. If soap and water are not available, use hand auctioneer automobile. Make sure that all people in your household wash their hands well and often. Rest at home while you recover. Watch your condition for any changes. Breathe slowly and deeply when you feel nauseated. Keep all follow-up visits as told by your health care provider. This is important. Contact a health care provider if: Your symptoms get worse. You have new symptoms. You have a fever. You cannot drink fluids without vomiting. Your nausea does not go away after 2 days. You feel light-headed or dizzy. You have a headache. You have muscle cramps. You have a rash. You have pain while urinating. Get help right away if: You have pain in your chest, neck, arm, or jaw. You feel extremely weak or you faint. You have persistent vomiting. You have vomit that is bright red or looks like black coffee grounds. You have bloody or black stools or stools that look like tar. You have a severe headache, a stiff neck, or both. You have severe pain, cramping, or bloating in your abdomen. You have difficulty breathing, or you are breathing very quickly. Your heart is beating very quickly. Your skin feels cold and clammy. You feel confused. You have signs of dehydration, such as: ?Dark urine, very little urine, or no urine. ?Cracked lips. ?Dry mouth. ?Sunken eyes. ?Sleepiness. ?Weakness. These symptoms may represent a serious problem that is an emergency. Do not wait to see if the symptoms will go away. Get medical help right away. Call your local emergency services (911 in the [place] Do not drive yourself to the hospital. Summary Nausea is the feeling that you have an upset stomach or that you are about to vomit. As nausea getsworse, it can lead to vomiting. Vomiting can make you feel weak and cause you to become dehydrated. Follow instructions from your health care provider about eating and drinking to prevent dehydration. Take uxmt-ahv-qpdwapj and prescription medicines only as told by your health care provider. Contact your health care provider if your symptoms get worse, or you have new symptoms. Keep all follow-up visits as told by your health care provider. This is important. This information is not intended to replace advice given to you by your health care provider. Make sure you discuss any questions you have with your health care provider. Document Released: 03/03/2006 Document Revised: 06/25/2019 Document Reviewed: 08/11/2018 [employer] Patient Education 2020 [employer] 12/28/2021 08:49:44 Monitored Anesthesia Care, Care After Monitored Anesthesia Care, Care After These instructions provide you with information about caring for yourself after your procedure. Your health care provider may also give you more specific instructions. Your treatment has been plannedaccording to current medical practices, but problems sometimes occur. Call your health care provider if you have any problems or questions after your procedure. What can I expect after the procedure? After your procedure, you may: Feel sleepy for several hours. Feel clumsy and have poor balance for several hours. Feel forgetful about what happened after the procedure. Have poor judgment for several hours. Feel nauseous or vomit. Have a sore throat if you had a breathing tube during the procedure. Follow these instructions at home: For at least 24 hours after the procedure: Have a responsible adult stay with you. It is important to have someone help care for you until youare awake and alert. Rest as needed. Do not: ?Participate in activities in which you could fall or become injured. ?Drive. ?Use heavy machinery. ?Drink alcohol. ?Take sleeping pills or medicines that cause drowsiness. ?Make important decisions or sign legal documents. ?Take care of children on your own. Eating and drinking Follow the diet that is recommended by your health care provider. If you vomit, drink water, juice, or soup when you can drink without vomiting. Make sure you have little or no nausea before eating solid foods. General instructions Take auqn-fkj-lpnswki and prescription medicines only as told by your health care provider. If you have sleep apnea, surgery and certain medicines can increase your risk for breathing problems. Follow instructions from your health care provider about wearing your sleep device: ?Anytime you are sleeping, including during daytime naps. ?While taking prescription pain medicines, sleeping medicines, or medicines that make you drowsy. If you smoke, do not smoke without supervision. Keep all follow-up visits as told by your health care provider. This is important. Contact a health care provider if: You keep feeling nauseous or you keep vomiting. You feel light-headed. You develop a rash. You have a fever. Get help right away if: You have trouble breathing. Summary For several hours after your procedure, you may feel sleepy and have poor judgment. Have a responsible adult stay with you for at least 24 hours or until you are awake and alert. This information is not intended to replace advice given to you by your health care provider. Make sure you discuss any questions you have with your health care provider. Document Released: 06/23/2016 Document Revised: 06/01/2018 Document Reviewed: 06/23/2016 [employer] Patient Education 2020 [employer] 12/28/2021 08:49:38 Bunion Surgery, Care After Bunion Surgery, Care After This sheet gives you information about how to care for yourself after your procedure. Your health care provider may also give you more specific instructions. If you have problems or questions, contact your health care provider. What can I expect after the procedure? After the procedure, it is common to have: Pain. Swelling. A small amount of fluid coming from your incision. Follow these instructions at home: If you have a post-operative brace, boot, or shoe: Wear the post-op (post-operative) brace, boot, or shoe as told by your health care provider. Removeit only as told by your health care provider. Loosen the brace, boot, or shoe if your toes tingle, become numb, or turn cold and blue. Keep the brace, boot, or shoe clean and dry. If you have a cast: Do not stick anything inside the cast to scratch your skin. Doing that increases your risk of infection. Check the skin around the cast every day. Tell your health care provider about any concerns. You may put lotion on dry skin around the edges of the cast. Do not put lotion on the skin underneath the cast. Keep the cast clean and dry. Bathing Do not take baths, swim, or use a hot tub until your health care provider approves. Ask your healthcare provider if you may take showers. If your brace, boot, shoe, or cast is not waterproof: ?Do not let it get wet. ?Cover it with a watertight covering when you take a bath or a shower. Keep your bandage (dressing) dry until your health care provider says it can be removed. Incision care The dressing holds your toe in the correct position. Do not change the dressing until your health care provider approves. Follow instructions from your health care provider about how to take care of your incision. Make sure you: ?Wash your hands with soap and water before you change your dressing. If soap and water are not available, use hand auctioneer automobile. ?Change your dressing as told by your health care provider. ?Leave stitches (sutures), skin glue, or adhesive strips in place. These skin closures may need to stay in place for 2 weeks or longer. If adhesive strip edges start to loosen and curl up, you may trim the loose edges. Do not remove adhesive strips completely unless your health care provider tells you to do that. Check your incision area every day for signs of infection. Check for: ?More redness, swelling, or pain. ?Blood or more fluid. ?Warmth. ?Pus or a bad smell. Managing pain, stiffness, and swelling If directed, put ice on the affected area. ?If you have a removable brace, boot, or shoe, remove it as told by your health care provider. ?Put ice in a plastic bag. ?Place a towel between your skin and the bag or between your cast and the bag. ?Leave the ice on for 20 minutes, 2 3 times a day. Move your toes often to avoid stiffness and to lessen swelling. Raise (elevate) your foot above the level of your heart while you are sitting or lying down. Driving Do not drive for 24 hours if you were given a medicine to help you relax (sedative) during your procedure. Do not drive or use heavy machinery while taking prescription pain medicine. Ask your health care provider when it is safe to drive if you have a brace, boot, shoe, or cast on your foot. Activity Return to your normal activities as told by your health care provider. Ask your health care provider what activities are safe for you. If physical therapy was prescribed, do exercises as told by your health care provider. Safety Do not use the affected leg to support (bear) your body weight until your health care provider saysthat you can. Follow weight-bearing restrictions as told. Use crutches, a cane, or a walker as toldby your health care provider. General instructions Do not use any products that contain nicotine or tobacco, such as cigarettes and e-cigarettes. These can delay bone healing. If you need help quitting, ask your health care provider. Take cdgy-nio-ypzrenp and prescription medicines only as told by your health care provider. If you are taking prescription pain medicine, take actions to prevent or treat constipation. Your health care provider may recommend that you: ?Drink enough fluid to keep your urine pale yellow. ?Eat foods that are high in fiber, such as fresh fruits and vegetables, whole grains, and beans. ?Limit foods that are high in fat and processed sugars, such as fried or sweet foods. ?Take an rnhb-ptb-zfuwetl or prescription medicine for constipation. Do not wear high heels or tight-fitting shoes, even after you heal. Keep all follow-up visits as told by your health care provider. This is important. Contact a health care provider if: You have more redness, swelling, or pain around your incision. You have more fluid or blood coming from the incision. Your incision feels warm to the touch. There is pus or a bad smell coming from your incision. You have a fever or chills. Your dressing gets wet or it falls off. You have swelling in your lower leg. You have numbness or stiffness in your toes. Get help right away if: You have a rash. You have difficulty breathing. Summary Do not use the affected leg to support (bear) your body weight until your health care provider saysthat you can. Follow weight-bearing restrictions as told. Use crutches, a cane, or a walker as toldby your health care provider. If directed, put ice on the affected area. Leave the ice on for 20 minutes, 2 3 times a day. Do not drive or use heavy machinery while taking prescription pain medicine. This information is not intended to replace advice given to you by your health care provider. Make sure you discuss any questions you have with your health care provider. Document Released: 09/20/2005 Document Revised: 02/13/2018 Document Reviewed: 12/08/2017 [employer] Patient Education 2020 [employer] Follow Up Care 12/03/2021 14:18:31 With:SERGEY JIMENEZ DPM, Surgery Address: [address] [place] [address], [facility] [place] [address]- When:01/03/2022 13:40[facility]00 [facility] Summary of episode note Discharge Instructions Thank you for allowing [facility] to assist you with your healthcare needs. The following is importantdischarge information regarding your hospital visit. Your Care Team GIGI CARRILLO DO What to do next Follow Up Appointments Follow Up with SERGEY JIMENEZ DPM, Surgery When 01/03/2022 01:40 PM EDT Where: [address], [address] [facility] [place] [address]- Someone Will Contact You Regarding These Home Health Referrals No home referrals have been ordered for you. No one will call you. Allergies macadamia nut (throat swelling, hives) Medications Please ask your primary doctor or pharmacist before taking any other medication not listed, including over the counter drugs, herbal medications, vitamins and or supplements as they may interact withyour home medications. What How Much When Instructions Last Dose Unchanged colestipol (colestipol 1 g oral tablet) 1 tab(s) by mouth Once a day Unchanged liraglutide (Victoza 18 mg/ 3 mL subcutaneous Pen (NF)) 1.8 Milligram Subcutaneous Once a day Unchanged metFORMIN (metFORMIN 500 mg oral tablet) 1 tab(s) by mouth Two (2) times a day Please take this list to your next doctor s visit. Bring all medications you take, including over the counter medications, herbals and other supplements with you to your doctor s visit. Patients and families are reminded to discard old lists and to update any records with all medication providers or retail pharmacies. Education Materials Nausea and Vomiting, Adult Nausea is the feeling that you have an upset stomach or that you are about to vomit. Vomiting is when stomach contents are thrown up and out of the mouth as a result of nausea. Vomiting can make you feel weak and cause you to become dehydrated. Dehydration can make you feel tired and thirsty, cause you to have a dry mouth, and decrease how often you urinate. Older adults and people with other diseases or a weak disease-fighting system (immune system) are at higher risk for dehydration. It is important to treat your nausea and vomiting as told by your health care provider. Follow these instructions at home: Watch your symptoms for any changes. Tell your health care provider about them. Follow these instructions to care for yourself at home. Eating and drinking Take an oral rehydration solution (ORS). This is a drink that is sold at pharmacies and retail stores. Drink clear fluids slowly and in small amounts as you are able. Clear fluids include water, ice chips, low-calorie sports drinks, and fruit juice that has water added (diluted fruit juice). Eat bland, lsrr-qf-ksswzy foods in small amounts as you are able. These foods include bananas, applesauce, rice, lean meats, toast, and crackers. Avoid fluids that contain a lot of sugar or caffeine, such as energy drinks, sports drinks, and soda. Avoid alcohol. Avoid spicy or fatty foods. General instructions Take omar-hvk-lcmsife and prescription medicines only as told by your health care provider. Drink enough fluid to keep your urine pale yellow. Wash your hands often using soap and water. If soap and water are not available, use hand auctioneer automobile. Make sure that all people in your household wash their hands well and often. Rest at home while you recover. Watch your condition for any changes. Breathe slowly and deeply when you feel nauseated. Keep all follow-up visits as told by your health care provider. This is important. Contact a health care provider if: Your symptoms get worse. You have new symptoms. You have a fever. You cannot drink fluids without vomiting. Your nausea does not go away after 2 days. You feel light-headed or dizzy. You have a headache. You have muscle cramps. You have a rash. You have pain while urinating. Get help right away if: You have pain in your chest, neck, arm, or jaw. You feel extremely weak or you faint. You have persistent vomiting. You have vomit that is bright red or looks like black coffee grounds. You have bloody or black stools or stools that look like tar. You have a severe headache, a stiff neck, or both. You have severe pain, cramping, or bloating in your abdomen. You have difficulty breathing, or you are breathing very quickly. Your heart is beating very quickly. Your skin feels cold and clammy. You feel confused. You have signs of dehydration, such as: ? Dark urine, very little urine, or no urine. ? Cracked lips. ? Dry mouth. ? Sunken eyes. ? Sleepiness. ? Weakness. These symptoms may represent a serious problem that is an emergency. Do not wait to see if the symptoms will go away. Get medical help right away. Call your local emergency services (911 in the [place] Do not drive yourself to the hospital. Summary Nausea is the feeling that you have an upset stomach or that you are about to vomit. As nausea getsworse, it can lead to vomiting. Vomiting can make you feel weak and cause you to become dehydrated. Follow instructions from your health care provider about eating and drinking to prevent dehydration. Take duls-prl-gbgucxh and prescription medicines only as told by your health care provider. Contact your health care provider if your symptoms get worse, or you have new symptoms. Keep all follow-up visits as told by your health care provider. This is important. This information is not intended to replace advice given to you by your health care provider. Make sure you discuss any questions you have with your health care provider. Document Released: 03/03/2006 Document Revised: 06/25/2019 Document Reviewed: 08/11/2018 [employer] Patient Education 2020 [employer] Monitored Anesthesia Care, Care After These instructions provide you with information about caring for yourself after your procedure. Your health care provider may also give you more specific instructions. Your treatment has been plannedaccording to current medical practices, but problems sometimes occur. Call your health care provider if you have any problems or questions after your procedure. What can I expect after the procedure? After your procedure, you may: Feel sleepy for several hours. Feel clumsy and have poor balance for several hours. Feel forgetful about what happened after the procedure. Have poor judgment for several hours. Feel nauseous or vomit. Have a sore throat if you had a breathing tube during the procedure. Follow these instructions at home: For at least 24 hours after the procedure: Have a responsible adult stay with you. It is important to have someone help care for you until youare awake and alert. Rest as needed. Do not: ? Participate in activities in which you could fall or become injured. ? Drive. ? Use heavy machinery. ? Drink alcohol. ? Take sleeping pills or medicines that cause drowsiness. ? Make important decisions or sign legal documents. ? Take care of children on your own. Eating and drinking Follow the diet that is recommended by your health care provider. If you vomit, drink water, juice, or soup when you can drink without vomiting. Make sure you have little or no nausea before eating solid foods. General instructions Take owoe-tvd-tddjuws and prescription medicines only as told by your health care provider. If you have sleep apnea, surgery and certain medicines can increase your risk for breathing problems. Follow instructions from your health care provider about wearing your sleep device: ? Anytime you are sleeping, including during daytime naps. ? While taking prescription pain medicines, sleeping medicines, or medicines that make you drowsy. If you smoke, do not smoke without supervision. Keep all follow-up visits as told by your health care provider. This is important. Contact a health care provider if: You keep feeling nauseous or you keep vomiting. You feel light-headed. You develop a rash. You have a fever. Get help right away if: You have trouble breathing. Summary For several hours after your procedure, you may feel sleepy and have poor judgment. Have a responsible adult stay with you for at least 24 hours or until you are awake and alert. This information is not intended to replace advice given to you by your health care provider. Make sure you discuss any questions you have with your health care provider. Document Released: 06/23/2016 Document Revised: 06/01/2018 Document Reviewed: 06/23/2016 [employer] Patient Education 2020 [employer] Bunion Surgery, Care After This sheet gives you information about how to care for yourself after your procedure. Your health care provider may also give you more specific instructions. If you have problems or questions, contact your health care provider. What can I expect after the procedure? After the procedure, it is common to have: Pain. Swelling. A small amount of fluid coming from your incision. Follow these instructions at home: If you have a post-operative brace, boot, or shoe: Wear the post-op (post-operative) brace, boot, or shoe as told by your health care provider. Removeit only as told by your health care provider. Loosen the brace, boot, or shoe if your toes tingle, become numb, or turn cold and blue. Keep the brace, boot, or shoe clean and dry. If you have a cast: Do not stick anything inside the cast to scratch your skin. Doing that increases your risk of infection. Check the skin around the cast every day. Tell your health care provider about any concerns. You may put lotion on dry skin around the edges of the cast. Do not put lotion on the skin underneath the cast. Keep the cast clean and dry. Bathing Do not take baths, swim, or use a hot tub until your health care provider approves. Ask your healthcare provider if you may take showers. If your brace, boot, shoe, or cast is not waterproof: ? Do not let it get wet. ? Cover it with a watertight covering when you take a bath or a shower. Keep your bandage (dressing) dry until your health care provider says it can be removed. Incision care The dressing holds your toe in the correct position. Do not change the dressing until your health care provider approves. Follow instructions from your health care provider about how to take care of your incision. Make sure you: ? Wash your hands with soap and water before you change your dressing. If soap and water are not available, use hand auctioneer automobile. ? Change your dressing as told by your health care provider. ? Leave stitches (sutures), skin glue, or adhesive strips in place. These skin closures may need to stay in place for 2 weeks or longer. If adhesive strip edges start to loosen and curl up, you may trim the loose edges. Do not remove adhesive strips completely unless your health care provider tells you to do that. Check your incision area every day for signs of infection. Check for: ? More redness, swelling, or pain. ? Blood or more fluid. ? Warmth. ? Pus or a bad smell. Managing pain, stiffness, and swelling If directed, put ice on the affected area. ? If you have a removable brace, boot, or shoe, remove it as told by your health care provider. ? Put ice in a plastic bag. ? Place a towel between your skin and the bag or between your cast and the bag. ? Leave the ice on for 20 minutes, 2 3 times a day. Move your toes often to avoid stiffness and to lessen swelling. Raise (elevate) your foot above the level of your heart while you are sitting or lying down. Driving Do not drive for 24 hours if you were given a medicine to help you relax (sedative) during your procedure. Do not drive or use heavy machinery while taking prescription pain medicine. Ask your health care provider when it is safe to drive if you have a brace, boot, shoe, or cast on your foot. Activity Return to your normal activities as told by your health care provider. Ask your health care provider what activities are safe for you. If physical therapy was prescribed, do exercises as told by your health care provider. Safety Do not use the affected leg to support (bear) your body weight until your health care provider saysthat you can. Follow weight-bearing restrictions as told. Use crutches, a cane, or a walker as toldby your health care provider. General instructions Do not use any products that contain nicotine or tobacco, such as cigarettes and e-cigarettes. These can delay bone healing. If you need help quitting, ask your health care provider. Take sbrk-gsu-bkovutq and prescription medicines only as told by your health care provider. If you are taking prescription pain medicine, take actions to prevent or treat constipation. Your health care provider may recommend that you: ? Drink enough fluid to keep your urine pale yellow. ? Eat foods that are high in fiber, such as fresh fruits and vegetables, whole grains, and beans. ? Limit foods that are high in fat and processed sugars, such as fried or sweet foods. ? Take an jbch-fqs-pjhujsg or prescription medicine for constipation. Do not wear high heels or tight-fitting shoes, even after you heal. Keep all follow-up visits as told by your health care provider. This is important. Contact a health care provider if: You have more redness, swelling, or pain around your incision. You have more fluid or blood coming from the incision. Your incision feels warm to the touch. There is pus or a bad smell coming from your incision. You have a fever or chills. Your dressing gets wet or it falls off. You have swelling in your lower leg. You have numbness or stiffness in your toes. Get help right away if: You have a rash. You have difficulty breathing. Summary Do not use the affected leg to support (bear) your body weight until your health care provider saysthat you can. Follow weight-bearing restrictions as told. Use crutches, a cane, or a walker as toldby your health care provider. If directed, put ice on the affected area. Leave the ice on for 20 minutes, 2 3 times a day. Do not drive or use heavy machinery while taking prescription pain medicine. This information is not intended to replace advice given to you by your health care provider. Make sure you discuss any questions you have with your health care provider. Document Released: 09/20/2005 Document Revised: 02/13/2018 Document Reviewed: 12/08/2017 [employer] Patient Education 2020 [employer] Additional Information VACCINATE! IT SAVES LIVES! Members of the community who have not yet received the COVID-19 vaccine and would like to receive it can visit one of [facility] vaccine clinics. There are many vaccine clinic locations within the [facility]. For locations and available times, please visit https://[email or web address].[place].gov/. It is important to note that some COVID mobile vaccine clinics are held outdoors and may be canceled in rainy or stormy conditions. To learn more about pediatric vaccinations (ages 5-11), we invite you to visit the [facility] webpage. [email or web address] learn more about the COVID-19 vaccine, we invite you to visit the [facility] website for a list of frequently asked questions. [email or web address] [facility] Patient Portal Access Instructions: Stay connected with your healthcare team and access your personal medical information anytime with the [facility] Patient Portal.If you would like a full copy of your medical records, please contact the [facility] Medical Records Department, Friday through Friday between 8a.m. and 4:30p.m. Please follow the directions below to access the portal: 1.Access the email account you provided upon registration to the [facility].2.Look for an invitation email from [facility].3.Open the email and access the invitation link: Accept Invitation to [facility]4.Fill in the required culver to create your account. Sign into www.Nosto with your username and password that you created in the above steps to stay up to date. You can then view a summary of results, a summary of your visits, and the ability to download your summaries to your computer or send the information securely to a physician. Remember that your healthcare information is confidential, so carefully consider who you will allow to register on the [facility] Patient Portal for access to your information. You can also access the [facility] Patient Portal on the [employer] gregory. Simply click on "Health Records" under "HealthDaCortona3D" and then click on the [employer] logo. HOW TO SAFELY DISPOSE OF PRESCRIPTION MEDICATIONS Please use one of the following methods to safely dispose of your unused medications. 1.Use a drug disposal kit: the drug disposal pouch allows you to safely discard your old and unuseddrugs. Ask your nurse to give you one when you are discharged.2.Visit a local take-back location: Many local pharmacies and police departments have programs that collect old and unwanted prescriptiondrugs. Call your local pharmacy or go to http://Vizimax.[employer]/4L2Md4z to find one close to you.3.Make use of household items: Use cat litter or old coffee grounds to dispose medications if other options arenot available. Mix your drugs with these household products, seal them in an airtight container andthrow it into the garbage. Call [facility]: [phone] to be sure your drugs can be disposed of in this way. Some medicines may require a different approach.4.Never flush your medications down the toilet. IF YOU HAVE BEEN PRESCRIBED AN OPIOID FOR PAIN If you have been prescribed an opioid (such as hydrocodone, oxycodone or morphine), it is critical to understand the possible side effects and risks of opioid pain medications. Even when taken as directed, opioids can have several side effects including: Tolerance, meaning you might need to take more of a medication for the same pain relief. Nausea, vomiting and/or constipation. Sleepiness, dizziness, dry mouth, confusion, depression or itching. Physical dependence, meaning you have withdrawal symptoms when a medication is stopped, can develop within a few days. KNOW YOUR RESPONSIBILITIES It is important to know exactly how much and how often to take the opioid pain medications you are prescribed. Never take opioids in higher amounts or more often than prescribed. Do not combine opioids with alcohol or other drugs that cause drowsiness, such as benzodiazepines, also known as benzos, including diazepam and alprazolam, muscle relaxants or sleep aids. Never sell or share prescription opioids. This is illegal. Store opioids in a secure place and out of reach of others (including children, family, friends and visitors). The last page of this document has been signed and retained as a CHART COPY. [employer]atures Patient Education Materials Nausea and Vomiting, Adult Monitored Anesthesia Care, Care After Bunion Surgery, Care After Medication Leaflets My discharge plan and instructions have been reviewed and explained to me and I,CANDELARIA GRANT understand my current condition and have read and understand these discharge instructions. I have received a written copy of the plan/instructions. If I have questions, I am aware that I should contact my doctor. Patient/School Based Therapist Signature: Date/Time: Relationship to Patient: Witness Name/Signature: Date/Time: [facility]10-14-2022 Note [place] ADMISSION HISTORY AND PHYSICIAL CHIEF COMPLAINT: HISTORY OF PRESENT ILLNESS: REVIEW OF SYSTEMS: ACTIVE PROBLEMS: (8) Diabetes (313571642) Diarrhea (330156255) HTN (hypertension) (7824840989) Kidney failure (14860848) OK (myocardial infarction) (65433592) Migraine (17724583) Plantar fasciitis of left foot ([id number]) TMJ (temporomandibular joint syndrome) (17119626) MEDICATIONS: Active Inpt Meds: cefOXitin Start: 12/28/21 7:10:00 EDT, Dose = 1 gram(s), IV Piggyback, PREOP pharm, Rate: 200 mL/hr, Infuse over: 30 minute(s), 0, 12/28/21 7:10:00 EDT Active PRN Meds: None One Time Meds: None Active IV Meds: Lactated Ringers Infusion 1,000 mL (LR 1,000 mL) Start: 12/28/21 7:10:00 EDT, Rate: 125 mL/hr, 12/28/21 7:10:00 EDT ALLERGIES: (1) macadamia nut FAMILY HISTORY: SOCIAL HISTORY: PHYSICAL EXAM: VITALS: [id number](kg) 12/28 07:1136.3146/[id number]/03210.0 24 Hr Tmax: 36.3 at 12/28 07:11 36 Hr Tmax: 36.3 at 12/28 07:11 Vital Signs are the last 5 in the past 48 hours. Weights display the last 5 within 7 days. Initial Wt: 12/28 100.0 kg 220 lb Current Wt: 12/28 100.0 kg 220 lb GENERAL: HEENT: CARDIOVASCULAR: RESPIRATORY: ABDOMEN: EXREMETIES: NEUROLOGICAL: PSYCHIATRIC: LABS: 36hr Labs 12/28 0616 TestSee Flowsheet testSee Flowsheet 12/28 0611 Blood Glucose, [id number] Blood Glucose, [id number] DIAGNOSTICS: IMPRESSION: PLAN: History and Physical Update I have examined the patient; reviewed the H&P and there are no changes to the H&P unless noted below. Digitally Signed by SERGEY JIMENEZ DPM on 12/28/2021 08:00 AM [facility]10-14-2022 Anesthesiology Consult note Patient: CANDELARIA GRANT Age: 36 years Sex: Female : 1985 Associated Diagnoses: None Author: NOLBERTO SALMERON APRN-HVAC LEAD Preoperative Information Anesthesia history Patient's history: negative. Family's history: negative. Health Status Allergies: Allergic Reactions (Selected) Severity Not Documented Macadamia nut- Throat swelling and hives., Allergies (1) ActiveReaction macadamia nuthives Current medications: (Selected) Inpatient Medications Ordered LR 1000 mL: 125 mL/hr, Intravenous cefOXitin: 1 gram(s), 200 mL/hr, IV Piggyback, PREOP pharm Documented Medications Documented Victoza 18 mg/3 mL subcutaneous Pen (NF): 1.8 mg, Subcutaneous, qDay, 0 Refill(s) colestipol 1 g oral tablet: 1 gram(s), 1 tab(s), Oral, qDay, 0 Refill(s) metFORMIN 500 mg oral tablet: 500 mg, 1 tab(s), Oral, BID, Medications (2) Active Scheduled: (1) ceFOXitin 1 gram(s), IV Piggyback, PREOP pharm Continuous: (1) Lactated Ringers Infusion 1000 mL 1,000 mL, Intravenous, 125 mL/hr PRN: (0) Problem list: Medical Diabetes / SNOMED CT 565141532 / Confirmed Diarrhea / SNOMED CT 575168460 / Confirmed Plantar fasciitis of left foot / SNOMED CT 603469230915558 / Confirmed, Active Problems (8) Diabetes Diarrhea HTN (hypertension) Kidney failure OK (myocardial infarction) Migraine Plantar fasciitis of left foot TMJ (temporomandibular joint syndrome) Histories Past Medical History: Active Plantar fasciitis of left foot ([id number]) Diarrhea (769033899) Family History: Cancer Father Procedure history: Cholecystectomy ([id number]). Comments: 04/17/2016 11:34 ILANA CHATMAN RN 2007 section ([id number]). Comments: 04/17/2016 11:33 ILANA CHATMAN RN 2014 Friend tooth ([id number]). Plantar ([id number]). Comments: 04/17/2016 11:33 ILANA CHATMAN RN LEFT FOOT ENDOSCOPIC FASCIOTOMY 2016 Foot ([id number]). Comments: 11/24/2019 8:58 MARILINT - WILLIAM Ricardo left x 2 heel spur & nerve repair Social History Social & Psychosocial Habits Alcohol 11/14/2016Risk Assessment: Denies Alcohol Use 11/24/2019 Use: Past Substance Abuse 11/14/2016Risk Assessment: Denies Substance Abuse 09/25/2018 Use: Never Tobacco 09/25/2018 Tobacco Use: Never (less than 100 in l Home/Environment 12/18/2021 Domestic Concerns None Living situation: Home/Independent Nutrition/Health 12/28/2021 Type of diet: Regular Appetite Excellent Eating Difficulties None . Physical Examination Vital Signs 12/28/2021 7:11 EDT Temperature Temporal Artery 36.3 DegC Apical Heart Rate 81 bpm Respiratory Rate 12 br/min LOW Systolic Blood Pressure NBP 146 mmHg HI Diastolic Blood Pressure NBP 95 mmHg HI Vital Signs(last 24 hrs) Last Charted Resp Rate L 12br/min (DEC 28 07:11) SBPH 146mmHg (DEC 28 07:11) DBPH 95mmHg (DEC 28 07:11) Measurements from flowsheet : Measurements 12/28/2021 7:11 EDT Height 175.3 cm Height in inches 69 inch(es) Admission Weight 220 kg Weight Lbs 484 lb [place] Body Weight 66.24 kg Admission Body Mass Index 71.59 m2 Pain assessment: Pain Assessment 12/28/2021 7:11 EDT Primary Pain Intensity 0 Pain Scale Type 0-10 Pain scale . General: Alert and oriented. Airway: Normal temporomandibular joint mobility. Mallampati classification: II (soft palate, fauces, uvula visible). Dentition Evaluation: Dentures, lower, Dentures, upper. Respiratory: Lungs are clear to auscultation, Respirations are non-labored. Cardiovascular: Normal rate, Regular rhythm. Neurologic: Alert, Oriented. Review / Management Results review: No qualifying data available , Lab results 12/28/2021 7:11 EDT Height 175.3 cm Height in inches 69 inch(es) Admission Weight 220 kg Weight Lbs 484 lb [place] Body Weight 66.24 kg Admission Body Mass Index 71.59 m2 Temperature Temporal Artery 36.3 DegC Apical Heart Rate 81 bpm Respiratory Rate 12 br/min LOW Systolic Blood Pressure NBP 146 mmHg HI Diastolic Blood Pressure NBP 95 mmHg HI Primary Pain Intensity 0 Pain Scale Type 0-10 Pain scale Monitor Alarms On and Limits Checked Nail Bed Color [place] Capillary Refill < 2 seconds Heart Rhythm Regular [place] Breath Sounds Clear Oxygen Therapy Room air Oxygen Saturation 99 % Abdomen Description Non-distended Abdomen Palpation Non-Tender Bowel Sounds All Quadrants Present Urinary Elimination Voiding, no difficulties Skin Temperature Warm Skin Description Normal for ethnicity Skin Integrity Intact Mucous Membrane Color [place] IV Present Present Extremity Movement Equal Characteristics of Speech Clear Level of Consciousness Alert Strength All Extremities Strong Tone All Extremities Normal Sensation All Extremities Intact Affect/Behavior Appropriate, Calm, Cooperative Orientation Oriented x 4 Allergies Yes Consent Form Signed Yes Patient Dressed In Hospital gown CHG Preoperative Wash/Wipe Night before procedure, Day of procedure CHG Skin Prep Completed for Eligible Surgery History & Physical Update On Chart Yes History & Physical On Chart Yes Obstructive Sleep Apnea Assess Completed Yes Orientation Assessment Oriented x 4 Belongings At Bedside [place], Pants, Shoes, Socks, T-shirt, Undergarments Activity Status ADL Awake, Resting Assistive Device None SCD On/Re-applied right knee high NPO Status Maintained Standard Safety ID band on, Allergy Band on, Call device within reach, Bed in low position, Wheels locked, Upper/Half-Length side-rails up, Phone within reach, personal items within reach Demonstrates Correct Call Light Use Yes Allergy Band on and Verified Yes Patient ID Band on and Verified Yes Implants Verified Yes Pacemaker/AICD Verified Yes Anesthesia Consent Signed Yes Blood Consent Signed Yes Last Fluid Intake 12/27/2021 22:00 Last Food Intake 12/27/2021 22:00 Last Void 12/28/2021 7:22 12/28/2021 7:10 EDT Infectious Disease Symptoms Patient states no symptoms Safety Brochure Information Reviewed Yes [facility] Video Viewed No Teaching Evaluation Verbalizes/Nonverbally indicates understanding Admission Note-Nursing Same Day Patient History (Modified) . Assessment and Plan [place] [employer]hesi[employer] (ASA) physical status classification: Class II. Anesthetic Preoperative Plan Anesthetic technique: MAC. Postoperative pain management: Per surgeon. Risks discussed: nausea, vomiting, hypotension, allergic reaction, serious complications. Digitally Signed by NOLBERTO SALMERON on 12/28/2021 07:25 AM [facility]10-03-2022 Miscellaneous Notes* Telephone Encounter - Pat Godoy Ma - 12/17/2021 1:20 PM EDT Pt requesting a 90 day supply. [facility]22 Miscellaneous Notes* Telephone Encounter - Helene Arzate Ma - 12/05/2021 9:07 AM EDT Pt informed, verbalized understanding. Helene Arzate Ma * Telephone Encounter - Ilana Herrera APRN.CNP - 12/05/2021 7:49 AM EDT I sent in the increased dose of the metformin. She'll take two tabs twice daily with meals. We'll hold off on switching from the Januvia at this point, and if she continues to develop yeast infections, we can make the change at that point. The following approved medication requests have been transmitted electronically. Requested Prescriptions Signed Prescriptions Disp Refills metFORMIN (GLUCOPHAGE) 500 mg tablet 60 tablet 11 Sig: Take 1 tablet by mouth twice daily with meals. . Authorizing Provider: ILANA HERRERA APRN.CNP * Telephone Encounter - Kaylie Barnett LPN - 12/03/2021 1:22 PM EDT Pt. informed. She is fine with 2 divided doses of Metformin. Send to Deepika Mullins. She said she didn't care about switching the Januvia. * Telephone Encounter - Ilana Herrera APRN.CNP - 12/03/2021 8:08 AM EDT Please let Candelaria know that her A1C has improved but is still elevated. I see at her last appointment she had spoken with Polly about switching from Januvia to Jardiance. Is this something she would like to look at doing or we can wait to see if she develops another yeast infection. She takes Metformin 1500mg in the mornings. Typically we prescribe 1000mg twice daily with meals. Is there a specific reason that she is only taking 1500mg daily? And that she is taking it all in themorning rather than 2 divided doses? Ilana Herrera APRN.CNP documented in this [facility]Hol[facility]09-16-2022 History of Present illness Narrative* Polly Quinteor APRN.CNP - 11/30/2021 8:48 AM EDT Chief Complaint Patient presents with: Vaginal Problem Vaginal Discharge: Yeast infection, pain in rt wrist , went to ortho appt.getting mri is scheduled HPI Candelaria Grant is a 36 year old female who presents here today for Above Complaints. Candelaria is an established patient of Dr. Carirllo, DO and myself. Concerns today... Yeast infection? -- Vaginal itch x 4 days with vaginal dishcarge. Reports urinary frequency. Denies odor to urine or vaginal discharge. Denies dysuria, hematuria, orurinary urgency. No concerns for STDs per pt. DM--- Does admit blood sugar may be elevated. Reports increase in thirst and hunger. Increase in weight since off of adipex. No SGLT2 in reigimen. Last hgA1c in July - 8.5 Does not check BG at home ever. HgA1c in office today -- 7.6, improving. Complaint with DM regimen per pt. Tolerating well. Denies any symptoms of hypoglycemia. Wrist pain -- Seen by Maribell Herrera CNP on 11/16 for R wrist pain -- Per note, plan was: 1. Injury of right wrist, subsequent encounter - ICD9: V58.89, 959.3, ICD10: S69.91XD (primary diagnosis) Suspect sprain. R/o fracture. Recommend PT; patient declines due to time and financial constraints. Consult placed to orthopedics for opinion. - XR WRIST GENERAL 3V PA/LAT/OBL RIGHT - XR FOREARM GENERAL 2V AP/LAT RIGHT - CONSULT TO ORTHOPAEDICS Went to orthopedics, has MRI scheduled for Dec 12. Follows back up with ortho on Dec 27. Discussed with ortho about steroid injections -- pt hesitant because had in knee before without much relief. Also discussed surgery depending on MRI results. Pt reports wrist discomfort to be stable and about the same as prior. Past medical history, appointments, medications, allergies reviewed. Previous Medical History PAST MEDICAL HISTORY Diagnosis Date Abnormal Pap smear of cervix ascus cannot rule out high grade Diabetes mellitus type 2 in obese (HCC) Migraine headache Obesity Previous Surgical History PAST SURGICAL HISTORY Procedure Laterality Date SECTION HX 03/24/2013 CHOLECYSTECTOMY HX INSERTION OF IUD 2016 Mirena IUD removed 10/20/2020 KYLEENA IUD 10/20/2020 NEXPLANON INSERTION 05/10/2013 OSTECTOMY CALCANEUS SPUR W/WO PLNTAR FASCIAL RLS Left Dr. Jimenez REPAIR OF NASAL SEPTUM Family History FAMILY HISTORY Problem Relation Age of Onset No Known Problems Mother Cancer Father pancreatic and renal. No Known Problems Brother No Known Problems Maternal Grandmother Diabetes Maternal Grandfather Diabetes Paternal Grandfather No Known Problems Son Breast Cancer Maternal Aunt Cervical Cancer Paternal Aunt x2- and one cousin other (lymphomia) Other maternal cousin other (leukemia) Other cousin Patient Allergies ALLERGIES Allergen Reactions Macadamia Nut Oil Hives, Swelling, Shortness of Breath Meloxicam Intolerance Headache Current Medications Current Outpatient Medications on File Prior to Visit Medication Sig ofloxacin (OCUFLOX) 0.3 % ophthalmic solution Place 4 drops to right ear 3 times daily for 7 days. ibuprofen (MOTRIN) 800 mg tablet take 1 tablet by mouth every 8 hours with food if needed for pain flash glucose scanning reader (FREESTYLE EMILIA 14 DAY READER) use as directed. Dx: Uncontrolled type 2 diabetes without insulin. flash glucose sensor (FREESTYLE EMILIA 14 DAY SENSOR) kit Apply and use as directed. Dx: Uncontrolled type 2 diabetes without insulin. Phenyleph-Shark Xuy-Wjty-Bqf (HEMORRHOIDAL) 0.25-3-12 % crea by RECTAL route twice daily. colestipol (COLESTID) 1 gram tablet Take 1 tablet by mouth once daily. For Diarrhea Post Gall Bladder Removal EPINEPHrine (EPIPEN) 0.3 mg/0.3 mL auto-injector Use for allergic reaction cyclobenzaprine (FLEXERIL) 10 mg tablet Take 1 tablet by mouth three times daily as needed for muscle spasm. Lancets lancets Test blood sugar(s)2 times daily. Dx: uncontrolled type 2 DM metFORMIN ER (GLUCOPHAGE XR) 500 mg 24 hr tablet Take 3 tablets by mouth daily with breakfast. meclizine (ANTIVERT) 25 mg tab Take 1 tablet by mouth three times daily as needed (dizziness). liraglutide (VICTOZA) 0.6 mg/ 0.1 ml subcutaneous pen injector inject 1.8 milligram subcutaneously once daily insulin needles, DISPOSABLE, (BD INSULIN PEN NEEDLE UF) 31 gauge x 5/16" use once daily as directed SITagliptin (JANUVIA) 100 mg tablet Take 1 tablet by mouth once daily. albuterol HFA (PROAIR HFA) 90 mcg/actuation inhaler Inhale 2 Puffs as instructed every 6 hours as needed. blood sugar diagnostic (BLOOD GLUCOSE TEST) test strip Test blood sugar(s) 2 times daily. Dx: uncontrolled type 2 DM clotrimazole-betamethasone (LOTRISONE) cream Apply 1 application to affected area twice daily. ibuprofen (MOTRIN) 800 mg tablet Take 1 tablet by mouth every 8 hours as needed. FOR PAIN. famotidine (PEPCID) 40 mg tablet Take 40 mg by mouth as needed. No current facility-administered medications on file prior to visit. Social History Social History Tobacco Use Smoking status: Never Smokeless tobacco: Never Vaping Use Vaping Use: Never used Substance Use Topics Alcohol use: Yes Comment: Rarely Drug use: No REVIEW OF SYSTEMS: as above Reviewed relevant PMHx, PSHx, Social Hx, current medications and allergies. Review of Symptoms REVIEW OF SYSTEMS See HPI. EXAM: BP 130/78 (BP Site: Left Arm, BP Position: Sitting, BP Cuff Size: Large Adult) Pulse 78 Resp 14 Wt 101.5 kg (223 lb 12.8 oz) LMP 02/24/2021 (LMP Unknown) SpO2 100% BMI 33.05 kg/m General Appearance: Well appearing, alert, in no acute distress, well-hydrated, well nourished.. Skin: Skin color, texture, turgor normal, no suspicious rashes or lesions. Head: Normocephalic, no masses, lesions, tenderness or abnormalities. Lungs: Lungs clear to auscultation. No wheezing, rhonchi, rales.. Heart: RRR without murmur, gallop, or rubs. No ectopy. Neurologic: Gait normal. Reflexes normal and symmetric. Sensation grossly intact.. Health Maintenance List DIABETIC FOOT EXAM due on 11/12/2019 DILATED RETINAL EXAM due on 03/26/2020 URINE ALBUMIN:CREATININE RATIO due on 09/25/2021 HBA1C due on 11/01/2021 INFLUENZA(1) due on 11/15/2021 COVID-19 VACCINE(1) due on 01/10/2022 DTAP,TDAP,TD(1 - Tdap) due on 08/29/2022 PNEUMOCOCCAL(2 - PCV) due on 08/29/2022 LDL CHOLESTEROL due on 07/02/2022 DEPRESSION SCREENING due on 09/14/2022 ANNUAL PCP TEAM CHRONIC DISEASE VISIT due on 11/16/2022 PAP TESTING due on 01/01/2023 HPV TESTING due on 01/01/2023 HEPATITIS C SCREENING Completed HIV SCREENING Completed ASSESSMENT/PLAN: 1. Uncontrolled type 2 diabetes mellitus with hyperglycemia (HCC) - ICD9: 250.02, ICD10: E11.65 (primary diagnosis) improved control Possible need to switch Januvia to Jardiance (due to DPP and GLP) -- concern due to yeast infectionrisk with acute episode now. Will discuss further in future. Pt agreeable to exercise and diet control to lose weight and potentially lower A1c. - Continue current medications - Blood glucose monitoring on a once a day schedule - Encouraged regular aerobic exercise and weight loss - Follow up in 3 months, sooner should any other issues arise. - BP goal of <130/80 - LDL goal of <100 - LIPID PANEL BASIC - COMP METABOLIC PANEL - CBC + DIFF - TSH BLD - HEMOGLOBIN A1C (POC) -- 7.6 2. Right wrist pain - ICD9: 719.43, ICD10: M25.531 Continue with MRI and ortho follow-up. 3. Obesity (BMI 30-39.9) - ICD9: 278.00, ICD10: E66.9 Agreeable to exercise as able and diet control. 4. Vaginal yeast infection - ICD9: 112.1, ICD10: B37.3 Diflucan x 1 if no relief in 3 days take additional pill. If no improvement after 2nd pill, please RTO. - FLUCONAZOLE 150 MG TABLET - UA DIP, URINE (POC) -- 500 glucose, otherwise normal. RTO in 3 months, sooner if needed. Prescription instructions reviewed with patient as applicable. Potential red flag symptoms discussed with the patient. Reviewed appropriate action plan to take if red flag symptoms occur. Patient agreeable to treatment plan. Polly Quintero APRN.CNP [id number] [place] [address] documented in this encounterHolzer [facility]09-08-2022 History of Present illness Narrative* Marizol Centeno, DO - 11/22/2021 9:40 AM EDT Images from the original note were not included. Reason for Visit/Chief Complaint Candelaria Grant is a 36 year old female who presents today for a new evaluation of following complaint: Patient presents with: Right Wrist - New, Pain History of Present Illness: PAIN EVALUATION 11/22/2021 0932 Pain Level: 8 Pain Location: Wrist-Right Description: Other: See comment;Aching;Sharp popping Duration Amount of Time: 1 Duration Units: Months Frequency: Continuous Intervention/Comfort measure: Other: See comment;Medication brace HPI: Candelaria Grant is a 36 year old female presenting today with roight wrist pain. Pain history is noted as above. Denies calf pain, numbness, tingling, fever, chills or other constitutional symptoms. AMB ROOMING INTAKE FLOWSHEET DATA Risk Screening Do you have concerns about personal safety or safety in the home?: No Pain Pain Level: 8 Pain Location: Wrist-Right Description: Other: See comment, Aching, Sharp (popping) Duration Amount of Time: 1 Duration Units: Months Frequency: Continuous Intervention/Comfort measure: Other: See comment, Medication (brace) Patient here today for right wrist pain x 1 month. Patient states she was horsing around with a friend and went to hit her and the friend moved resulting in the patient hitting a table with her wrist. She is right hand dominant, works in the [employer] department at [employer] Previous Treatments: Ice: Yes Heat: Yes Brace: Yes, NSAIDs: Yes, Injections: No Surgeries: No Physical Therapy: Yes Review of Systems: Patient did not have, and does not currently have, any weight loss, malaise, fever, chills, headache, chest pain, chest pressure, palpitations, cough, shortness of breath, orthopnea, paroxsymal nocturnal dyspnea, nausea, vomiting, diarrhea, constipation, melena, hematochezia, urinary difficulties, prolonged bleeding, easily bruising, heat or cold intolerance, new onset joint pain or swelling, newonset extremity weakness or numbness, new onset auditory or visual disturbances, lightheadedness, dizziness, partial loss of consciousness or full loss of consciousness. Current Outpatient Medications on File Prior to Visit Medication Sig ofloxacin (OCUFLOX) 0.3 % ophthalmic solution Place 4 drops to right ear 3 times daily for 7 days. colestipol (COLESTID) 1 gram tablet Take 1 tablet by mouth once daily. For Diarrhea Post Gall Bladder Removal cyclobenzaprine (FLEXERIL) 10 mg tablet Take 1 tablet by mouth three times daily as needed for muscle spasm. metFORMIN ER (GLUCOPHAGE XR) 500 mg 24 hr tablet Take 3 tablets by mouth daily with breakfast. meclizine (ANTIVERT) 25 mg tab Take 1 tablet by mouth three times daily as needed (dizziness). liraglutide (VICTOZA) 0.6 mg/ 0.1 ml subcutaneous pen injector inject 1.8 milligram subcutaneously once daily SITagliptin (JANUVIA) 100 mg tablet Take 1 tablet by mouth once daily. albuterol HFA (PROAIR HFA) 90 mcg/actuation inhaler Inhale 2 Puffs as instructed every 6 hours as needed. clotrimazole-betamethasone (LOTRISONE) cream Apply 1 application to affected area twice daily. ibuprofen (MOTRIN) 800 mg tablet Take 1 tablet by mouth every 8 hours as needed. FOR PAIN. famotidine (PEPCID) 40 mg tablet Take 40 mg by mouth as needed. ibuprofen (MOTRIN) 800 mg tablet take 1 tablet by mouth every 8 hours with food if needed for pain flash glucose scanning reader (FREESTYLE EMILIA 14 DAY READER) use as directed. Dx: Uncontrolled type 2 diabetes without insulin. flash glucose sensor (FREESTYLE EMILIA 14 DAY SENSOR) kit Apply and use as directed. Dx: Uncontrolled type 2 diabetes without insulin. Phenyleph-Shark Xzh-Anvk-Dgv (HEMORRHOIDAL) 0.25-3-12 % crea by RECTAL route twice daily. EPINEPHrine (EPIPEN) 0.3 mg/0.3 mL auto-injector Use for allergic reaction Lancets lancets Test blood sugar(s)2 times daily. Dx: uncontrolled type 2 DM insulin needles, DISPOSABLE, (BD INSULIN PEN NEEDLE UF) 31 gauge x 5/16" use once daily as directed blood sugar diagnostic (BLOOD GLUCOSE TEST) test strip Test blood sugar(s) 2 times daily. Dx: uncontrolled type 2 DM No current facility-administered medications on file prior to visit. ALLERGIES Allergen Reactions Macadamia Nut Oil Hives, Swelling, Shortness of Breath Meloxicam Intolerance Headache Physical Exam: Vitals: Ht 5' 9" (1.75m) Wt 219 lb 14.4 oz (99.7kg) LMP 02/24/2021 BMI 32.46 kg/(m^2). Psych: Pleasant, good affect and mood General Appearance: Well appearing, alert, in no acute distress, well-hydrated, well nourished.. Skin: Skin color, texture, turgor normal, no suspicious rashes or lesions. Peripheral Pulses: Normal. Neurologic: Gait normal. Reflexes normal and symmetric. Sensation grossly intact.. Lymph Nodes: No cervical lymphadenopathy, No supraclavicular lymphadenopathy, No axillary lymphadenopathy., and No inguinal lymphadenopathy.. Respiratory: No recent pulmonary infection, hemoptysis, chronic cough, or shortness of breath at rest Rheumatologic: Joint deformities: right wrist pain, rhd Right Hand Exam Tenderness The patient is experiencing tenderness in the ulnar area. Range of Motion Wrist Extension: abnormal Flexion: normal Pronation: normal Supination: normal Muscle Strength The patient has normal right wrist strength. Tests Phalen s Sign: negative Tinel's sign (median nerve): negative Delfino's test: negative Other Erythema: absent Sensation: normal Pulse: present Comments: B/l med/uln/rad/ax nerves intact Ttp tfcc/ecu complex No druj instability Left Hand Exam Left hand exam is normal. Tenderness The patient is experiencing no tenderness. Range of Motion The patient has normal left wrist ROM. Wrist Extension: normal Flexion: normal Pronation: normal Supination: normal Muscle Strength The patient has normal left wrist strength. Tests Phalen s Sign: negative Tinel's sign (median nerve): negative Delfino's test: negative Other Erythema: absent Sensation: normal Pulse: present Imaging: Last XR Hand/Finger - Impression Only No resulted procedures found. Last XR Wrist - Impression Only XR WRIST GENERAL 3V PA/LAT/OBL RIGHT Exam End: 11/16/2021 9:25 AM (Final result) Impression: IMPRESSION: No acute radiographic abnormalities seen in the right wrist or right forearm. Environmental Attorney: VINEET Transcribe Date/Time: Nov 16 2021 9:29A Dictated by : NEIDA MORRISON MD... Assessment and Plan: Impression: Encounter Diagnosis ICD-10-CM 1. Right wrist pain M25.531 2. Injury of right wrist, subsequent encounter S69.91XD Plan: Nsaids, brace Apply ice Limit activities as discussed Today, in detail, through a thorough evaluation, we discussed possible etiologies of pain and our plans for further diagnostic and therapeutic interventions. We discussed strategies for decreasing pain and improving strength, stability and motion. Patient's questions were answered in detailed. Patient verbalizes understanding and agrees with the treatment plan as discussed. Mri right wrist as has failed conservative therapy and has continued pain Wrist brace- use as much as possible F/u after MRI right wrist Marizol Centeno DO * Mariluz Martinez Ma - 11/22/2021 9:31 AM EDT AMB ROOMING INTAKE FLOWSHEET DATA Risk Screening Do you have concerns about personal safety or safety in the home?: No Pain Pain Level: 8 Pain Location: Wrist-Right Description: Other: See comment, Aching, Sharp (popping) Duration Amount of Time: 1 Duration Units: Months Frequency: Continuous Intervention/Comfort measure: Other: See comment, Medication (brace) Patient here today for right wrist pain x 1 month. Patient states she was horsing around with a friend and went to hit her and the friend moved resulting in the patient hitting a table with her wrist. She is right hand dominant, works in the [employer] department at [employer] documented in this encounter[facility]22 History of Present illness Narrative* Ilana Herrera APRN.GUM COOK - 11/16/2021 8:35 AM EDT Chief Complaint Patient presents with: Wrist/forearm Injury: Right arm X 1 month HPI Candelaria Grant is a 36 year old female who presents here today for Above Complaints.. Today: 1-2 months ago hurt her right wrist. [facility] with 2 negative xrays. Has been a couple weeks since her last xray. Friend and patient were playing around slapping at eachother and friend moved, she hit her hand/wrist on the table. [place] a pop. Has had 2 negative xrays. Cannot lean on her arm or bend and put any pressure. Has been wearing a brace. Icing. Therapy and exercises that were given at [facility] but haven't helped. Has been taking a lot of ibuprofen. Feels like the pain is in her bone and aches pretty badly. Past medical history, appointments, medications, allergies reviewed. Previous Medical History PAST MEDICAL HISTORY Diagnosis Date Abnormal Pap smear of cervix ascus cannot rule out high grade Diabetes mellitus type 2 in obese (HCC) Migraine headache Obesity Previous Surgical History PAST SURGICAL HISTORY Procedure Laterality Date SECTION HX 03/24/2013 CHOLECYSTECTOMY HX INSERTION OF IUD 2016 Mirena IUD removed 10/20/2020 KYLEENA IUD 10/20/2020 NEXPLANON INSERTION 05/10/2013 OSTECTOMY CALCANEUS SPUR W/WO PLNTAR FASCIAL RLS Left Dr. Jimenez REPAIR OF NASAL SEPTUM Family History FAMILY HISTORY Problem Relation Age of Onset No Known Problems Mother Cancer Father pancreatic and renal. No Known Problems Brother No Known Problems Maternal Grandmother Diabetes Maternal Grandfather Diabetes Paternal Grandfather No Known Problems Son Breast Cancer Maternal Aunt Cervical Cancer Paternal Aunt x2- and one cousin other (lymphomia) Other maternal cousin other (leukemia) Other cousin Patient Allergies ALLERGIES Allergen Reactions Macadamia Nut Oil Hives, Swelling, Shortness of Breath Meloxicam Intolerance Headache Current Medications Current Outpatient Medications on File Prior to Visit Medication Sig ibuprofen (MOTRIN) 800 mg tablet take 1 tablet by mouth every 8 hours with food if needed for pain flash glucose scanning reader (FREESTYLE EMILIA 14 DAY READER) use as directed. Dx: Uncontrolled type 2 diabetes without insulin. flash glucose sensor (FREESTYLE EMILIA 14 DAY SENSOR) kit Apply and use as directed. Dx: Uncontrolled type 2 diabetes without insulin. Phenyleph-Shark Byn-Vwdt-Uiy (HEMORRHOIDAL) 0.25-3-12 % crea by RECTAL route twice daily. colestipol (COLESTID) 1 gram tablet Take 1 tablet by mouth once daily. For Diarrhea Post Gall Bladder Removal EPINEPHrine (EPIPEN) 0.3 mg/0.3 mL auto-injector Use for allergic reaction cyclobenzaprine (FLEXERIL) 10 mg tablet Take 1 tablet by mouth three times daily as needed for muscle spasm. Lancets lancets Test blood sugar(s)2 times daily. Dx: uncontrolled type 2 DM metFORMIN ER (GLUCOPHAGE XR) 500 mg 24 hr tablet Take 3 tablets by mouth daily with breakfast. meclizine (ANTIVERT) 25 mg tab Take 1 tablet by mouth three times daily as needed (dizziness). liraglutide (VICTOZA) 0.6 mg/ 0.1 ml subcutaneous pen injector inject 1.8 milligram subcutaneously once daily insulin needles, DISPOSABLE, (BD INSULIN PEN NEEDLE UF) 31 gauge x 5/16" use once daily as directed SITagliptin (JANUVIA) 100 mg tablet Take 1 tablet by mouth once daily. albuterol HFA (PROAIR HFA) 90 mcg/actuation inhaler Inhale 2 Puffs as instructed every 6 hours as needed. blood sugar diagnostic (BLOOD GLUCOSE TEST) test strip Test blood sugar(s) 2 times daily. Dx: uncontrolled type 2 DM clotrimazole-betamethasone (LOTRISONE) cream Apply 1 application to affected area twice daily. ibuprofen (MOTRIN) 800 mg tablet Take 1 tablet by mouth every 8 hours as needed. FOR PAIN. famotidine (PEPCID) 40 mg tablet Take 40 mg by mouth as needed. No current facility-administered medications on file prior to visit. Social History Social History Tobacco Use Smoking status: Never Smokeless tobacco: Never Vaping Use Vaping Use: Never used Substance Use Topics Alcohol use: Yes Comment: Rarely Drug use: No Review of Symptoms REVIEW OF SYSTEMS See HPI, otherwise negative EXAM: BP 122/86 (BP Site: Left Arm, BP Position: Sitting, BP Cuff Size: Regular Adult) Pulse 89 Resp 16 Wt 100.1 kg (220 lb 9.6 oz) LMP 02/24/2021 (LMP Unknown) SpO2 99% BMI 32.58 kg/m General Appearance: Well appearing, alert, in no acute distress, well-hydrated, well nourished. Musculoskeletal: mild swelling to right dorsal proximal wrist, tender to palpation, no decreased ROM, pain with ROM. EENT: mild erythema and swelling to right external ear canal-no drainage present Health Maintenance List DIABETIC FOOT EXAM due on 11/12/2019 DILATED RETINAL EXAM due on 03/26/2020 URINE ALBUMIN:CREATININE RATIO due on 09/25/2021 HBA1C due on 11/01/2021 INFLUENZA(1) due on 11/15/2021 COVID-19 VACCINE(1) due on 01/10/2022 DTAP,TDAP,TD(1 - Tdap) due on 08/29/2022 PNEUMOCOCCAL(2 - PCV) due on 08/29/2022 LDL CHOLESTEROL due on 07/02/2022 DEPRESSION SCREENING due on 09/14/2022 ANNUAL PCP TEAM CHRONIC DISEASE VISIT due on 11/16/2022 PAP TESTING due on 01/01/2023 HPV TESTING due on 01/01/2023 HEPATITIS C SCREENING Completed HIV SCREENING Completed Data reviewed Previous records, office notes ASSESSMENT/PLAN: 1. Injury of right wrist, subsequent encounter - ICD9: V58.89, 959.3, ICD10: S69.91XD (primary diagnosis) Suspect sprain. R/o fracture. Recommend PT; patient declines due to time and financial constraints. Consult placed to orthopedics for opinion. - XR WRIST GENERAL 3V PA/LAT/OBL RIGHT - XR FOREARM GENERAL 2V AP/LAT RIGHT - CONSULT TO ORTHOPAEDICS 2. Right wrist pain - ICD9: 719.43, ICD10: M25.531 Suspect sprain. R/o fracture. Recommend PT; patient declines due to time and financial constraints. Consult placed to orthopedics for opinion. - XR WRIST GENERAL 3V PA/LAT/OBL RIGHT - XR FOREARM GENERAL 2V AP/LAT RIGHT - CONSULT TO ORTHOPAEDICS 3. Acute otitis externa of right ear, unspecified type - ICD9: 380.10, ICD10: H60.501 Mild erythema and swelling to right external ear canal. - OFLOXACIN 0.3 % EYE DROPS Ilana Herrera APRN.KEEGAN documented in this encounterHol[facility]07-22-2022 History of Present illness Narrative* Polly Quintero APRN.CNP - 10/05/2021 8:27 AM EDT Chief Complaint Patient presents with: Weight Problem HPI Candelaria Grant is a 36 year old female who presents here today for Above Complaints. Candelaria is an established patient of Dr. Gerardo DO and myself. Concerns today... Weight management: Starting on Adipex month 3 of 3 this week. Tolerating well. Has been on adipex regimen last year aswell and had good results. Initial weight: 220 lbs Weight after 1 month: 216 lbs Weight after month 2: 220 lbs Current BMI: 32.55 Denies: abdominal pain, nausea, vomiting, diarrhea, fevers, constipation, headache, change in urination, lightheadedness, weakness, numbness or tingling to arms or legs, edema, palpitations, sleep disturbances, impairment of concentration/attention, difficulty with memory, speech or language problems (particularly word-finding difficulties). If DM any hypo/hyperglycemia: No Foot pain: R x 3 weeks. Every since floating in the river and twisting it while standing up. Pain is to top offoot, no pain in ankle. Mild swelling per pt. No discoloration or redness. Able to ambulate withoutdifficulties. Full ROM. Just concerned d/t swelling. Past medical history, appointments, medications, allergies reviewed. Previous Medical History PAST MEDICAL HISTORY Diagnosis Date Abnormal Pap smear of cervix ascus cannot rule out high grade Diabetes mellitus type 2 in obese (HCC) Migraine headache Obesity Previous Surgical History PAST SURGICAL HISTORY Procedure Laterality Date SECTION HX 03/24/2013 CHOLECYSTECTOMY HX INSERTION OF IUD 2016 Mirena IUD removed 10/20/2020 KYLEENA IUD 10/20/2020 NEXPLANON INSERTION 05/10/2013 OSTECTOMY CALCANEUS SPUR W/WO PLNTAR FASCIAL RLS Left Dr. Jimenez REPAIR OF NASAL SEPTUM Family History FAMILY HISTORY Problem Relation Age of Onset No Known Problems Mother Cancer Father pancreatic and renal. No Known Problems Brother No Known Problems Maternal Grandmother Diabetes Maternal Grandfather Diabetes Paternal Grandfather No Known Problems Son Breast Cancer Maternal Aunt Cervical Cancer Paternal Aunt x2- and one cousin other (lymphomia) Other maternal cousin other (leukemia) Other cousin Patient Allergies ALLERGIES Allergen Reactions Macadamia Nut Oil Hives, Swelling, Shortness of Breath Meloxicam Intolerance Headache Current Medications Current Outpatient Medications on File Prior to Visit Medication Sig Phentermine HCl (ADIPEX-P) 37.5 mg tablet Take 1 tablet by mouth once daily for 30 days. BMI 31.9 ibuprofen (MOTRIN) 800 mg tablet take 1 tablet by mouth every 8 hours with food if needed for pain flash glucose scanning reader (CIBDO EMILIA 14 DAY READER) use as directed. Dx: Uncontrolled type 2 diabetes without insulin. flash glucose sensor (FREESTYLE EMILIA 14 DAY SENSOR) kit Apply and use as directed. Dx: Uncontrolled type 2 diabetes without insulin. Phenyleph-Shark Esy-Qhav-Dkl (HEMORRHOIDAL) 0.25-3-12 % crea by RECTAL route twice daily. colestipol (COLESTID) 1 gram tablet Take 1 tablet by mouth once daily. For Diarrhea Post Gall Bladder Removal EPINEPHrine (EPIPEN) 0.3 mg/0.3 mL auto-injector Use for allergic reaction cyclobenzaprine (FLEXERIL) 10 mg tablet Take 1 tablet by mouth three times daily as needed for muscle spasm. Lancets lancets Test blood sugar(s)2 times daily. Dx: uncontrolled type 2 DM metFORMIN ER (GLUCOPHAGE XR) 500 mg 24 hr tablet Take 3 tablets by mouth daily with breakfast. meclizine (ANTIVERT) 25 mg tab Take 1 tablet by mouth three times daily as needed (dizziness). liraglutide (VICTOZA) 0.6 mg/ 0.1 ml subcutaneous pen injector inject 1.8 milligram subcutaneously once daily insulin needles, DISPOSABLE, (BD INSULIN PEN NEEDLE UF) 31 gauge x 5/16" use once daily as directed SITagliptin (JANUVIA) 100 mg tablet Take 1 tablet by mouth once daily. albuterol HFA (PROAIR HFA) 90 mcg/actuation inhaler Inhale 2 Puffs as instructed every 6 hours as needed. blood sugar diagnostic (BLOOD GLUCOSE TEST) test strip Test blood sugar(s) 2 times daily. Dx: uncontrolled type 2 DM clotrimazole-betamethasone (LOTRISONE) cream Apply 1 application to affected area twice daily. ibuprofen (MOTRIN) 800 mg tablet Take 1 tablet by mouth every 8 hours as needed. FOR PAIN. famotidine (PEPCID) 40 mg tablet Take 40 mg by mouth as needed. No current facility-administered medications on file prior to visit. Social History Social History Tobacco Use Smoking status: Never Smoker Smokeless tobacco: Never Used Vaping Use Vaping Use: Never used Substance Use Topics Alcohol use: Yes Comment: Rarely Drug use: No REVIEW OF SYSTEMS: as above Reviewed relevant PMHx, PSHx, Social Hx, current medications and allergies. Review of Symptoms See HPI. All other systems are negative. EXAM: BP 120/78 (BP Site: Left Arm, BP Position: Sitting, BP Cuff Size: Large Adult) Pulse 72 Resp 14 Wt 100 kg (220 lb 6.4 oz) LMP 02/24/2021 (LMP Unknown) BMI 32.55 kg/m General Appearance: Well appearing, alert, in no acute distress, well-hydrated, well nourished.. Skin: Skin color, texture, turgor normal, no suspicious rashes or lesions. Head: Normocephalic, no masses, lesions, tenderness or abnormalities. Lungs: Lungs clear to auscultation. No wheezing, rhonchi, rales.. Heart: RRR without murmur, gallop, or rubs. No ectopy. Extremities: R foot with mild swelling and possible small effusion to top of foot. No discoloration, redness, or deformity. Full ROM. Able to ambulate. No distress. Health Maintenance List DIABETIC FOOT EXAM due on 11/12/2019 DILATED RETINAL EXAM due on 03/26/2020 URINE ALBUMIN:CREATININE RATIO due on 09/25/2021 COVID-19 VACCINE(1) due on 01/10/2022 DTAP,TDAP,TD(1 - Tdap) due on 08/29/2022 PNEUMOCOCCAL(2 - PCV) due on 08/29/2022 HBA1C due on 11/01/2021 INFLUENZA(1) due on 11/15/2021 LDL CHOLESTEROL due on 07/02/2022 ANNUAL PCP TEAM CHRONIC DISEASE VISIT due on 09/14/2022 DEPRESSION SCREENING due on 09/14/2022 PAP TESTING due on 01/01/2023 HPV TESTING due on 01/01/2023 HEPATITIS C SCREENING Completed HIV SCREENING Completed ASSESSMENT/PLAN: 1. Obesity (BMI 30-39.9) - ICD9: 278.00, ICD10: E66.9 (primary diagnosis) Stable - Behavioral intervention, - Pharmacological intervention, - Eat well program and - Continue current medications - PHENTERMINE 37.5 MG TABLET - Begin diet consisting of counting calories, counting fat grams and counting carbohydrates. - Reduce sugary drinks of artificial juices and sodas and replace with water and low calorie Crystal Light. - Healthy Snack alternatives have been discussed and will attempt more fruits and vegetables. - encouraged 3 meals a day - Continue exercise or meaningful activity for 20 minutes at lest 3 times a day PDMP website checked and validated. All prescriptions have been APPROPRIATELY filled. No suspiciousactivity was identified. 10/05/2021 by Polly Quintero APRN.GUM COOK - reviewed SE, medication expectations, required weight loss of 5%, required monthly monitoring andmedication duration of use (3 months on 6 months off) 2. 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 Foot pain, right - ICD9: 729.5, ICD10: M79.671 X-ray foot. R.I.C.E. therapy discussed. Motrin or tylenol for discomfort. Follow-up if symptoms do not improve. - XR FOOT GENERAL 3V AP/LAT/OBL RIGHT RTO as needed and at scheduled upcoming appointment. Prescription instructions reviewed with patient as applicable. Potential red flag symptoms discussed with the patient. Reviewed appropriate action plan to take if red flag symptoms occur. Patient agreeable to treatment plan. Polly Quintero APRN.GUM COOK [address] [place] [address] documented in this encounterHolzer [facility] System07-01-2022 Nurse Note* Goldie Milton LPN - 09/14/2021 10:20 AM EDT Pt received a urine test today as ordered result was negative. Pt also received a blood sugar per glucometer for results of 182. documented in this encounterHolzer Health System07-01-2022 History of Present illness Narrative* Viola Sommer, RT(R) - 09/14/2021 10:15 AM EDT Radiology Service Progress Note PATIENT NAME: Candelaria Grant DATE OF SERVICE: September 14, 2021 TIME: 10:04 AM PATIENT IDENTITY VERIFICATION COMPLETED USING TWO (2) IDENTIFIERS: Name and Date of confirmedby patient verbally. FALL SCREENING: Has the patient had 2 falls in the last year or 1 fall with injury or currently using an Ambulatory Assistive Device (Walker, Cane, Wheelchair, Crutches, etc.)? No PATIENT GENDER DATA: Female. status: : No status: NO. PATIENT RELEVANT IMPLANT DATA REVIEWED: Yes RADIOLOGY DEPARTMENT: General X-ray: Exam(s) Completed: Upper Extremity X- Ray(s): Shoulder, AP / TRUE AP / AXILLARY right PERIPHERAL IV DATA: Not applicable SIGNED BY: RT Josh(R) September 14, 2021 10:04 AM documented in this encounterHolzer Health System07-01-2022 Instructions* Patient Instructions* Polly Quintero APRN.CNP - 09/14/2021 9:34 AM EDT X-ray of shoulder Blood work today test in office Blood glucose in office -- fasting Decrease Januvia to 25 mg x 2 weeks. Follow-up around October 07 documented in this encounterHolzer [facility] System07-01-2022 History of Present illness Narrative* Polly Quintero APRN.CNP - 09/14/2021 9:00 AM EDT Chief Complaint Patient presents with: follow up on x-rays: States now pain is in mid back goes up to rt shouler down arm into hand HPI Candelaria Grant is a 36 year old female who presents here today for Above Complaints. Candelaria is an established patient of Dr. Carrillo, and myself. Concerns today.. C/o bouts of dizziness intermittently x 1 month. Lasting a few minutes at a time. Dizziness correlates at the same time as with R shoulder and back pain. Had a episode on Friday where she got dizzy and was unsteady on feet x 2 episodes where she fell into door while walking. No LOC with episodes. Reports this upper back and shoulder pain for awhile but reports symptoms significantly worsening since Friday with dizziness episode. No known fall or injury that started shoulder pain. 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 No relief with motrinor tylenol. Had x-ray of thoracic spine done on 09/07 showing mild scoliotic curvature and mild degenerative change. No acute process. Pt denies any hx of anemia. Denies heavy menstrual cycles or known bleeding. Does report last 2 periods to be barely even spotting which is abnormal for her. Pt is sexually active, possibility of when asked. She was seen by [facility] for dizziness and they don't feel it is related to her control but maybe her blood sugars which patient reports are much improved ranging from 150-190. Blood sugar has been the lowest it has ever been. Lowest reading captured is 140 per pt. Checking blood sugar as needed and not on a regular basis. Did not have glucometer with her at work on Friday when dizziness episode occurred so she was unable to test BG. Current DM regimen: metformin 1500 mg with breakfast Victoza 1.8 mg SQ daily Januvia 50 mg daily --- cutting pill in half d/t GI upset. Was on 100 mg. States feels the dizziness may be side effect of this medication. Has never tolerated well since starting this medication perpt. On adipex regimen currently --- good results so far. Has been on Adipex in the past and tolerated well. Has been taking 1.5 months currently and tolerating well. No dizziness with prior rounds. Does not feel this is an Adipex adverse effect. Does not want to trial off of this to see. Has hx of vertigo. Reports this is not the same sensation as room spinning with vertigo. Has meclizine as needed but has not tried for these episodes. Denies any earache or pain. Past medical history, appointments, medications, allergies reviewed. Previous Medical History PAST MEDICAL HISTORY Diagnosis Date Abnormal Pap smear of cervix ascus cannot rule out high grade Diabetes mellitus type 2 in obese (HCC) Migraine headache Obesity Previous Surgical History PAST SURGICAL HISTORY Procedure Laterality Date SECTION HX 03/24/2013 CHOLECYSTECTOMY HX INSERTION OF IUD 2016 Mirena IUD removed 10/20/2020 KYLEENA IUD 10/20/2020 NEXPLANON INSERTION 05/10/2013 OSTECTOMY CALCANEUS SPUR W/WO PLNTAR FASCIAL RLS Left Dr. Jimenez REPAIR OF NASAL SEPTUM Family History FAMILY HISTORY Problem Relation Age of Onset No Known Problems Mother Cancer Father pancreatic and renal. No Known Problems Brother No Known Problems Maternal Grandmother Diabetes Maternal Grandfather Diabetes Paternal Grandfather No Known Problems Son Breast Cancer Maternal Aunt Cervical Cancer Paternal Aunt x2- and one cousin other (lymphomia) Other maternal cousin other (leukemia) Other cousin Patient Allergies ALLERGIES Allergen Reactions Macadamia Nut Oil Hives, Swelling, Shortness of Breath Meloxicam Intolerance Headache Current Medications Current Outpatient Medications on File Prior to Visit Medication Sig Phentermine HCl (ADIPEX-P) 37.5 mg tablet Take 1 tablet by mouth once daily for 30 days. BMI 31.9 ibuprofen (MOTRIN) 800 mg tablet take 1 tablet by mouth every 8 hours with food if needed for pain flash glucose scanning reader (FREESTYLE EMILIA 14 DAY READER) use as directed. Dx: Uncontrolled type 2 diabetes without insulin. flash glucose sensor (FREESTYLE EMILIA 14 DAY SENSOR) kit Apply and use as directed. Dx: Uncontrolled type 2 diabetes without insulin. Phenyleph-Shark Bmq-Fron-Nrs (HEMORRHOIDAL) 0.25-3-12 % crea by RECTAL route twice daily. colestipol (COLESTID) 1 gram tablet Take 1 tablet by mouth once daily. For Diarrhea Post Gall Bladder Removal EPINEPHrine (EPIPEN) 0.3 mg/0.3 mL auto-injector Use for allergic reaction cyclobenzaprine (FLEXERIL) 10 mg tablet Take 1 tablet by mouth three times daily as needed for muscle spasm. Lancets lancets Test blood sugar(s)2 times daily. Dx: uncontrolled type 2 DM metFORMIN ER (GLUCOPHAGE XR) 500 mg 24 hr tablet Take 3 tablets by mouth daily with breakfast. meclizine (ANTIVERT) 25 mg tab Take 1 tablet by mouth three times daily as needed (dizziness). liraglutide (VICTOZA) 0.6 mg/ 0.1 ml subcutaneous pen injector inject 1.8 milligram subcutaneously once daily insulin needles, DISPOSABLE, (BD INSULIN PEN NEEDLE UF) 31 gauge x 5/16" use once daily as directed SITagliptin (JANUVIA) 100 mg tablet Take 1 tablet by mouth once daily. albuterol HFA (PROAIR HFA) 90 mcg/actuation inhaler Inhale 2 Puffs as instructed every 6 hours as needed. blood sugar diagnostic (BLOOD GLUCOSE TEST) test strip Test blood sugar(s) 2 times daily. Dx: uncontrolled type 2 DM clotrimazole-betamethasone (LOTRISONE) cream Apply 1 application to affected area twice daily. ibuprofen (MOTRIN) 800 mg tablet Take 1 tablet by mouth every 8 hours as needed. FOR PAIN. famotidine (PEPCID) 40 mg tablet Take 40 mg by mouth as needed. No current facility-administered medications on file prior to visit. Social History Social History Tobacco Use Smoking status: Never Smoker Smokeless tobacco: Never Used Vaping Use Vaping Use: Never used Substance Use Topics Alcohol use: Yes Comment: Rarely Drug use: No REVIEW OF SYSTEMS: as above Reviewed relevant PMHx, PSHx, Social Hx, current medications and allergies. Review of Symptoms See HPI. All other systems are negative. EXAM: BP 128/80 (BP Site: Left Arm, BP Position: Sitting, BP Cuff Size: Large Adult) Pulse 80 Resp 16 Wt 98.7 kg (217 lb 9.6 oz) LMP 02/24/2021 (LMP Unknown) BMI 32.13 kg/m General Appearance: Well appearing, alert, in no acute distress, well-hydrated, well nourished.. Skin: Skin color, texture, turgor normal, no suspicious rashes or lesions. Head: Normocephalic, no masses, lesions, tenderness or abnormalities. Ears: External ears normal, canals clear. Back:no pain to palpation of vertebrae, good flexion and extension, good range of motion, no muscletenderness, reflexes are 2+ and symmetric, motor and sensory appear to be normal, negative SLR test, no evidence of scoliosis Lungs: Lungs clear to auscultation. No wheezing, rhonchi, rales.. Heart: RRR without murmur, gallop, or rubs. No ectopy. Extremities: No deformities, edema, skin discoloration, clubbing or cyanosis. Good capillary refill. , Positive findings: joint location: on right shoulder painful movement and stiffness. Musculoskeletal: Range of motion normal in hips, knees, shoulders, and spine, No joint swelling, deformity, or tenderness. Peripheral Pulses: Normal. Neurologic: Gait normal. Reflexes normal and symmetric. Sensation grossly intact.. Health Maintenance List DIABETIC FOOT EXAM due on 11/12/2019 DILATED RETINAL EXAM due on 03/26/2020 URINE ALBUMIN:CREATININE RATIO due on 09/25/2021 COVID-19 VACCINE(1) due on 01/10/2022 DTAP,TDAP,TD(1 - Tdap) due on 08/29/2022 PNEUMOCOCCAL(2 - PCV) due on 08/29/2022 HBA1C due on 11/01/2021 INFLUENZA(1) due on 11/15/2021 LDL CHOLESTEROL due on 07/02/2022 DEPRESSION SCREENING due on 08/29/2022 ANNUAL PCP TEAM CHRONIC DISEASE VISIT due on 09/07/2022 PAP TESTING due on 01/01/2023 HPV TESTING due on 01/01/2023 HEPATITIS C SCREENING Completed HIV SCREENING Completed ASSESSMENT/PLAN: 1. Acute pain of right shoulder - ICD9: 719.41, ICD10: M25.511 (primary diagnosis) X-ray shoulder. R.I.C.E therapy. Naproxen prn --- pt has prescription at home. Flexeril prn -- pt has prescription at home. - XR SHOULDER GENERAL 3V OR MORE AP/TRUE AP/OTHER RIGHT 2. Dizziness - ICD9: 780.4, ICD10: R42 - Keep glucometer on hand and check blood glucose daily and when episodes occur. Fasting blood glucose in office of 182. No concern for hypoglycemic episodes. - Urine test d/t abnormal light menstrual cycles - Blood work to rule out anemia or infection - No signs or symptoms of ear infection or vertigo. Use meclizine if needed. - Orthostatic vitals signs were negative. - Try decreasing Januvia to 25 mg daily x 2 weeks. If no improvement in symptoms, continue on the 50 mg daily. - Follow-up in 3 weeks. - GLUCOSE, BLOOD (POC) - HCG QUAL UR -- negative. - CBC - COMP METABOLIC PANEL 3. Uncontrolled type 2 diabetes mellitus with hyperglycemia (HCC) - ICD9: 250.02, ICD10: E11.65 See plan above. - Try decreasing Januvia to 25 mg daily x 2 weeks. If no improvement in symptoms, continue on the 50 mg daily. 4. Abnormal menstrual cycle - ICD9: 626.9, ICD10: N92.6 See plan above. - URINE (NURSE PERFORM) (AV,FV,TAIWO,MC,ME,MM,SP) --- negative RTO in 3 weeks, sooner if needed, for Adipex refill, dizziness re-evaluation, and shoulder pain. I spent 42 minutes in the visit, with more than 50% of the total [id number] time of the visit in counseling / coordination of care. Prescription instructions reviewed with patient as applicable. Potential red flag symptoms discussed with the patient. Reviewed appropriate action plan to take if red flag symptoms occur. Patient agreeable to treatment plan. Polly Quintero APRN.CNP [id number] [place] [address] documented in this encounterHolzer Health System06-27-2022 Miscellaneous Notes* Telephone Encounter - Kaylie Barnett LPN - 09/10/2021 5:26 PM EDT Pt. informed Appt. made. Kaylie Barnett LPN * Telephone Encounter - Polly Quintero APRN.CNP - 09/10/2021 5:03 PM EDT The results of the x-ray do not show any concerning nature that would be causing the dizziness. I agree that the dizziness could likely be contributed to the poorly controlled diabetes/ blood sugar levels. Continue current regimen of DM and if symptoms persist or do not improve, pleas assist patient in scheduling a follow-up appt. Thank you, Polly Quintero APRN.CNP * Telephone Encounter - Vivienne Mendoza RN - 09/10/2021 12:16 PM EDT Patient calls to ask provider if results of x-ray could be causing her dizziness as well as the upper back/neck pain. She reports that often she gets dizziness at the same time as the increased pain.She seen LINOLEUM PRINTER for dizziness and they don't feel it is related to her control but maybe her blood sugars which patient reports are much improved ranging from 150-190. Patient has a history of vertigo and reports that it feels kind of like that but she feels that it could also be related to the back pain. She reports when she wakes up in the morning she feels pretty good but as the day goes on with work that is when she starts having the increased pain back/neck with dizziness. Please review and advise, Vivienne Mendoza RN documented in this encounterHolzer Health System06-24-2022 Instructions* Patient Instructions* Pita Chase APRN.CNM - 09/07/2021 11:25 AM EDT Check iron for anemia Diet changes Increase electrolytes documented in this encounterHolzer Health System06-24-2022 Nurse Note* Florecita Buck Ma - 09/07/2021 10:50 AM EDT Intake information documented in the prior visit with Ilana wayne. documented in this encounterHolzer Health System06-24-2022 History of Present illness Narrative* Pita Chase APRN.CNM - 09/07/2021 10:47 AM EDT Candelaria Grant is a 36 year old female who presents for problem visit for dizziness. HPI: Patient had Kyleena inserted in October of 2020. Patient previously had Mirena that made her dizzy. This would occur before and after her period. She would also feel nauseous. Patient decided to have Mirena removed and Kyleena inserted due to lower hormones. Patient reports feeling dizzy beforeand after periods again. This has been happening for months. Patient reports spotting and light bleeding with periods. Periods occur every month. She is a Type 2 Diabetic taking Adipex.Patient reports that HgbA1c has decreased. Working with PCP to improve diet and lose weight. Denies fatigue. Has had diarrhea since having COVID in June. OB History T1 L1 SAB0 IAB0 Ectopic0 Multiple0 Live Births0 Comment: 1 section Healthcare Market Consultant History LMP: 02/24/2021 (LMP Unknown), IUD Age at Menarche: Age at First : Age at Menopause: Healthcare Market Consultant History Comments: Sexual Activity: Yes; Male Contraception: I.U.D. PAST MEDICAL HISTORY Diagnosis Date Abnormal Pap smear of cervix ascus cannot rule out high grade Diabetes mellitus type 2 in obese (HCC) Migraine headache Obesity PAST SURGICAL HISTORY Procedure Laterality Date SECTION HX 03/24/2013 CHOLECYSTECTOMY HX INSERTION OF IUD 2016 Mirena IUD removed 10/20/2020 KYLEENA IUD 10/20/2020 NEXPLANON INSERTION 05/10/2013 OSTECTOMY CALCANEUS SPUR W/WO PLNTAR FASCIAL RLS Left Dr. Jimenez REPAIR OF NASAL SEPTUM FAMILY HISTORY Problem Relation Age of Onset No Known Problems Mother Cancer Father pancreatic and renal. No Known Problems Brother No Known Problems Maternal Grandmother Diabetes Maternal Grandfather Diabetes Paternal Grandfather No Known Problems Son Breast Cancer Maternal Aunt Cervical Cancer Paternal Aunt x2- and one cousin other (lymphomia) Other maternal cousin other (leukemia) Other cousin Social History Tobacco Use Smoking status: Never Smoker Smokeless tobacco: Never Used Vaping Use Vaping Use: Never used Substance Use Topics Alcohol use: Yes Comment: Rarely Drug use: No Current Outpatient Medications Medication Sig Phentermine HCl (ADIPEX-P) 37.5 mg tablet Take 1 tablet by mouth once daily for 30 days. BMI 31.9 ibuprofen (MOTRIN) 800 mg tablet take 1 tablet by mouth every 8 hours with food if needed for pain flash glucose scanning reader (FREESTYLE EMILIA 14 DAY READER) use as directed. Dx: Uncontrolled type 2 diabetes without insulin. flash glucose sensor (FREESTYLE EMILIA 14 DAY SENSOR) kit Apply and use as directed. Dx: Uncontrolled type 2 diabetes without insulin. Phenyleph-Shark Brq-Ecla-Eti (HEMORRHOIDAL) 0.25-3-12 % crea by RECTAL route twice daily. colestipol (COLESTID) 1 gram tablet Take 1 tablet by mouth once daily. For Diarrhea Post Gall Bladder Removal EPINEPHrine (EPIPEN) 0.3 mg/0.3 mL auto-injector Use for allergic reaction cyclobenzaprine (FLEXERIL) 10 mg tablet Take 1 tablet by mouth three times daily as needed for muscle spasm. Lancets lancets Test blood sugar(s)2 times daily. Dx: uncontrolled type 2 DM metFORMIN ER (GLUCOPHAGE XR) 500 mg 24 hr tablet Take 3 tablets by mouth daily with breakfast. meclizine (ANTIVERT) 25 mg tab Take 1 tablet by mouth three times daily as needed (dizziness). liraglutide (VICTOZA) 0.6 mg/ 0.1 ml subcutaneous pen injector inject 1.8 milligram subcutaneously once daily insulin needles, DISPOSABLE, (BD INSULIN PEN NEEDLE UF) 31 gauge x 5/16" use once daily as directed SITagliptin (JANUVIA) 100 mg tablet Take 1 tablet by mouth once daily. albuterol HFA (PROAIR HFA) 90 mcg/actuation inhaler Inhale 2 Puffs as instructed every 6 hours as needed. blood sugar diagnostic (BLOOD GLUCOSE TEST) test strip Test blood sugar(s) 2 times daily. Dx: uncontrolled type 2 DM clotrimazole-betamethasone (LOTRISONE) cream Apply 1 application to affected area twice daily. ibuprofen (MOTRIN) 800 mg tablet Take 1 tablet by mouth every 8 hours as needed. FOR PAIN. famotidine (PEPCID) 40 mg tablet Take 40 mg by mouth as needed. No current facility-administered medications for this visit. Allergies As of Date: 09/07/2021 Allergen Noted Reaction MACADAMIA NUT OIL 04/08/2014 Hives, Swelling, and Shortness of Breath MELOXICAM 08/30/2015 Intolerance Fully Assessed 09/07/2021 REVIEW OF SYSTEMS Abdomen: No bloating, early satiety, indigestion, or increased flatulence. No abdominal pain, nausea, vomiting, constipation. + diarrhea Bladder: No dysuria, gross hematuria, urinary frequency, urinary urgency, or incontinence. Breast: No breast lumps, nipple d/c, overlying skin changes, redness or skin retraction. Expanded ROS: Psych:+ for sleep disturbances and mood swings Neuro: Negative for numbness and tingling, no migraines, + dizziness Allergies and current medication updated:Yes EXAM: BP 124/84 Wt 220 lb (99.8kg) LMP 02/24/2021 GENERAL: pleasant, female in no apparent distress HEENT: Normocephalic, atraumatic, mucus membranes moist and no lesions NECK: Supple, full range of motion, no adenopathy and thyroid normal DERMATOLOGY: Normal, without lesions, non-icteric and non-hirsute BREAST: deferred CHEST: Normal inspiratory effort ABDOMEN: Deferred PELVIC: deferred BIMANUAL: deferred NEURO: alert and oriented x3,exam grossly non-focal EXTREMITIES: normal ASSESSMENT AND PLAN: ASSESSMENT/PLAN: 1. Dizziness - ICD9: 780.4, ICD10: R42 - Reviewed other contraception options for patient if has IUD removed. Patient desired patch but not a good candidate due to BMI of 32. - Possibly dizziness due to dehydration/diarrhea or diabetes - Patient desires to keep IUD at this time - See PCP + Locker Operator for dizziness Medical Decision Making I spent a total of 25 minutes on the date of the service which included preparing to see the patient, [id number] patient care, completing clinical documentation, obtaining and/or reviewing separately obtained history and counseling and educating the patient/family/caregiver Carolann Menon RN BSN, [employer] Student Pita Chase APRN.CNM documented in this encounterHolzer Health System06-24-2022 History of Present illness Narrative* Viola Sommer RT(R) - 09/07/2021 9:10 AM EDT Radiology Service Progress Note PATIENT NAME: Candelaria Grant DATE OF SERVICE: September 07, 2021 TIME: 9:16 AM PATIENT IDENTITY VERIFICATION COMPLETED USING TWO (2) IDENTIFIERS: Name and Date of confirmedby patient verbally. FALL SCREENING: Has the patient had 2 falls in the last year or 1 fall with injury or currently using an Ambulatory Assistive Device (Walker, Cane, Wheelchair, Crutches, etc.)? No PATIENT GENDER DATA: Female. status: : No status: NO. PATIENT RELEVANT IMPLANT DATA REVIEWED: Yes RADIOLOGY DEPARTMENT: General X-ray: Exam(s) Completed: Spine X-Ray(s): Thoracic PERIPHERAL IV DATA: Not applicable SIGNED BY: RT Josh(Gerhard) September 07, 2021 9:16 AM documented in this encounterHolzer Health System06-24-2022 History of Present illness Narrative* Ilana Glory, KATRIN.GUM COOK - 09/07/2021 8:58 AM EDT Chief Complaint Patient presents with: F/U 1 month: Adipex HPI Candelaria Grant is a 36 year old female who presents here today for Above Complaints.. Starting weight: 220 pounds Month #1 (today): 216 pounds Today: Has noticed her pants and shorts are looser on her legs. Is feeling better. Diet-Cutting back on portion sizes. Cannot eat a full meal that she would have previously because she feels full. Cutting back on pop. Plenty of water. Occasional dry mouth. Exercise-nothing specific/intentional. Busy with her son and very active at work. Past medical history, appointments, medications, allergies reviewed. Previous Medical History PAST MEDICAL HISTORY Diagnosis Date Abnormal Pap smear of cervix ascus cannot rule out high grade Diabetes mellitus type 2 in obese (HCC) Migraine headache Obesity Previous Surgical History PAST SURGICAL HISTORY Procedure Laterality Date SECTION HX 03/24/2013 CHOLECYSTECTOMY HX INSERTION OF IUD 2016 Mirena IUD removed 10/20/2020 KYLEENA IUD 10/20/2020 NEXPLANON INSERTION 05/10/2013 OSTECTOMY CALCANEUS SPUR W/WO PLNTAR FASCIAL RLS Left Dr. Jimenez REPAIR OF NASAL SEPTUM Family History FAMILY HISTORY Problem Relation Age of Onset No Known Problems Mother Cancer Father pancreatic and renal. No Known Problems Brother No Known Problems Maternal Grandmother Diabetes Maternal Grandfather Diabetes Paternal Grandfather No Known Problems Son Breast Cancer Maternal Aunt Cervical Cancer Paternal Aunt x2- and one cousin other (lymphomia) Other maternal cousin other (leukemia) Other cousin Patient Allergies ALLERGIES Allergen Reactions Macadamia Nut Oil Hives, Swelling, Shortness of Breath Meloxicam Intolerance Headache Current Medications Current Outpatient Medications on File Prior to Visit Medication Sig ibuprofen (MOTRIN) 800 mg tablet take 1 tablet by mouth every 8 hours with food if needed for pain flash glucose scanning reader (FREESTYLE EMILIA 14 DAY READER) use as directed. Dx: Uncontrolled type 2 diabetes without insulin. flash glucose sensor (FREESTYLE EMILIA 14 DAY SENSOR) kit Apply and use as directed. Dx: Uncontrolled type 2 diabetes without insulin. Phenyleph-Shark Iis-Tcbm-Xzd (HEMORRHOIDAL) 0.25-3-12 % crea by RECTAL route twice daily. colestipol (COLESTID) 1 gram tablet Take 1 tablet by mouth once daily. For Diarrhea Post Gall Bladder Removal EPINEPHrine (EPIPEN) 0.3 mg/0.3 mL auto-injector Use for allergic reaction cyclobenzaprine (FLEXERIL) 10 mg tablet Take 1 tablet by mouth three times daily as needed for muscle spasm. Lancets lancets Test blood sugar(s)2 times daily. Dx: uncontrolled type 2 DM metFORMIN ER (GLUCOPHAGE XR) 500 mg 24 hr tablet Take 3 tablets by mouth daily with breakfast. meclizine (ANTIVERT) 25 mg tab Take 1 tablet by mouth three times daily as needed (dizziness). liraglutide (VICTOZA) 0.6 mg/ 0.1 ml subcutaneous pen injector inject 1.8 milligram subcutaneously once daily insulin needles, DISPOSABLE, (BD INSULIN PEN NEEDLE UF) 31 gauge x 5/16" use once daily as directed SITagliptin (JANUVIA) 100 mg tablet Take 1 tablet by mouth once daily. Phentermine HCl (ADIPEX-P) 37.5 mg tablet Take 1 tablet by mouth once daily for 30 days. albuterol HFA (PROAIR HFA) 90 mcg/actuation inhaler Inhale 2 Puffs as instructed every 6 hours as needed. blood sugar diagnostic (BLOOD GLUCOSE TEST) test strip Test blood sugar(s) 2 times daily. Dx: uncontrolled type 2 DM clotrimazole-betamethasone (LOTRISONE) cream Apply 1 application to affected area twice daily. ibuprofen (MOTRIN) 800 mg tablet Take 1 tablet by mouth every 8 hours as needed. FOR PAIN. famotidine (PEPCID) 40 mg tablet Take 40 mg by mouth as needed. No current facility-administered medications on file prior to visit. Social History Social History Tobacco Use Smoking status: Never Smoker Smokeless tobacco: Never Used Vaping Use Vaping Use: Never used Substance Use Topics Alcohol use: Yes Comment: Rarely Drug use: No Review of Symptoms REVIEW OF SYSTEMS see HPI, otherwise negative EXAM: BP 124/86 (BP Site: Left Arm, BP Position: Sitting, BP Cuff Size: Regular Adult) Pulse 82 Resp 16 Wt 98 kg (216 lb) LMP 02/24/2021 SpO2 99% BMI 31.90 kg/m General Appearance: Well appearing, alert, in no acute distress, well-hydrated, well nourished.. Lungs: Lungs clear to auscultation. No wheezing, rhonchi, rales.. Heart: RRR without murmur, gallop, or rubs. No ectopy. Health Maintenance List DIABETIC FOOT EXAM due on 11/12/2019 DILATED RETINAL EXAM due on 03/26/2020 URINE ALBUMIN:CREATININE RATIO due on 09/25/2021 COVID-19 VACCINE(1) due on 01/10/2022 DTAP,TDAP,TD(1 - Tdap) due on 08/29/2022 PNEUMOCOCCAL(2 - PCV) due on 08/29/2022 HBA1C due on 11/01/2021 LDL CHOLESTEROL due on 07/02/2022 ANNUAL PCP TEAM CHRONIC DISEASE VISIT due on 08/29/2022 DEPRESSION SCREENING due on 08/29/2022 PAP TESTING due on 01/01/2023 HPV TESTING due on 01/01/2023 INFLUENZA Completed HEPATITIS C SCREENING Completed HIV SCREENING Completed Data reviewed Previous records, office notes, [place] report PDMP website checked and validated. All prescriptions have been APPROPRIATELY filled. No suspiciousactivity was identified. 09/07/2021 by Ilana Herrera CNP. ASSESSMENT/PLAN: 1. Type 2 diabetes mellitus without complication, unspecified whether long term acute care registered nurse insulin use (HCC) -ICD9: 250.00, ICD10: E11.9 (primary diagnosis) Tolerating Adipex, lost 4 pounds over the past month. Continue with decreasing portion sizes. Get extra exercise outside of daily routine. New rx given, follow up again in 1 month. - PHENTERMINE 37.5 MG TABLET 2. Obesity (BMI 30-39.9) - ICD9: 278.00, ICD10: E66.9 Tolerating Adipex, lost 4 pounds over the past month. Continue with decreasing portion sizes. Get extra exercise outside of daily routine. New rx given, follow up again in 1 month. - PHENTERMINE 37.5 MG TABLET Ilana Herrera APRN.GUM COOK documented in this encounterHolzer Health System06-17-2022 Miscellaneous Notes* Telephone Encounter - Pat Godoy Ma - 08/31/2021 2:45 PM EDT Last office visit: 08/29/21 F/u scheduled: 09/07/21 Pat Godoy Ma documented in this encounterHolzer Health System06-15-2022 History of Present illness Narrative* Polly Quintero APRN.KEEGAN - 08/29/2021 5:40 PM EDT Chief Complaint Patient presents with: Pain: in jaw back and hemhorrids HPI Candelaria Grant is a 36 year old female who presents here today for Above Complaints. Candelaria is an established patient of Dr. Gerardo DO. Concerns today.. Hemorrhoids: X 4 days. Has had BM since. Mild bleeding with BM. Starting use OTC ointment after every bathroom trip x 1-2 days. Minimal relief. Last time she has hemorrhoids was during . External mostly -- "looks like a pimple". Back pain: Went to chiropractor a few weeks ago when he was pressing on her back and heard a pop. Thoracic midback pain since. Chiropractor told her this was likely MSK but patient wanted to make sure not spine involved or slipped disc. Taking flexeril 10 mg prn --- taking occasionally prior to bed d/t drowsiness. Taking ibuprofen frequently with some relief. Jaw pain: Has known TMJ per pt. Reports clicking sound occasionally and locked jaw with bottom jaw toward to R. Takes motrin for pain or discomfort. Pain no worse but no better than prior. Past medical history, appointments, medications, allergies reviewed. Previous Medical History PAST MEDICAL HISTORY Diagnosis Date Abnormal Pap smear of cervix ascus cannot rule out high grade Diabetes mellitus type 2 in obese (HCC) Migraine headache Obesity Previous Surgical History PAST SURGICAL HISTORY Procedure Laterality Date SECTION HX 03/24/2013 CHOLECYSTECTOMY HX INSERTION OF IUD 2017 Mirena IUD removed 10/20/2020 KYLEENA IUD 10/20/2020 NEXPLANON INSERTION 05/10/2013 OSTECTOMY CALCANEUS SPUR W/WO PLNTAR FASCIAL RLS Left Dr. Jimenez REPAIR OF NASAL SEPTUM Family History FAMILY HISTORY Problem Relation Age of Onset No Known Problems Mother Cancer Father pancreatic and renal. No Known Problems Brother No Known Problems Maternal Grandmother Diabetes Maternal Grandfather Diabetes Paternal Grandfather No Known Problems Son Breast Cancer Maternal Aunt Cervical Cancer Paternal Aunt x2- and one cousin other (lymphomia) Other maternal cousin other (leukemia) Other cousin Patient Allergies ALLERGIES Allergen Reactions Macadamia Nut Oil Hives, Swelling, Shortness of Breath Meloxicam Intolerance Headache Current Medications Current Outpatient Medications on File Prior to Visit Medication Sig colestipol (COLESTID) 1 gram tablet Take 1 tablet by mouth once daily. For Diarrhea Post Gall Bladder Removal EPINEPHrine (EPIPEN) 0.3 mg/0.3 mL auto-injector Use for allergic reaction cyclobenzaprine (FLEXERIL) 10 mg tablet Take 1 tablet by mouth three times daily as needed for muscle spasm. Lancets lancets Test blood sugar(s)2 times daily. Dx: uncontrolled type 2 DM metFORMIN ER (GLUCOPHAGE XR) 500 mg 24 hr tablet Take 3 tablets by mouth daily with breakfast. meclizine (ANTIVERT) 25 mg tab Take 1 tablet by mouth three times daily as needed (dizziness). liraglutide (VICTOZA) 0.6 mg/ 0.1 ml subcutaneous pen injector inject 1.8 milligram subcutaneously once daily insulin needles, DISPOSABLE, (BD INSULIN PEN NEEDLE UF) 31 gauge x 5/16" use once daily as directed SITagliptin (JANUVIA) 100 mg tablet Take 1 tablet by mouth once daily. Phentermine HCl (ADIPEX-P) 37.5 mg tablet Take 1 tablet by mouth once daily for 30 days. ibuprofen (MOTRIN) 800 mg tablet take 1 tablet by mouth every 8 hours with food if needed for pain flash glucose scanning reader (FREESTYLE EMILIA 14 DAY READER) use as directed. Dx: Uncontrolled type 2 diabetes without insulin. flash glucose sensor (FREESTYLE EMILIA 14 DAY SENSOR) kit Apply and use as directed. Dx: Uncontrolled type 2 diabetes without insulin. albuterol HFA (PROAIR HFA) 90 mcg/actuation inhaler Inhale 2 Puffs as instructed every 6 hours as needed. benzonatate (TESSALON PERLES) 100 mg capsule Take 2 capsules by mouth three times daily as needed. (Patient not taking: Reported on 08/10/2021 ) blood sugar diagnostic (BLOOD GLUCOSE TEST) test strip Test blood sugar(s) 2 times daily. Dx: uncontrolled type 2 DM L. acidophilus-L. rhamnosus 15 billion cell cap Take 1 capsule by mouth once daily. FLORAJEN WOMEN.If on antibiotic, take at least 1-2 hours before or after antibiotic. KEEP REFRIGERATED (Patient not taking: Reported on 06/05/2021 ) clotrimazole-betamethasone (LOTRISONE) cream Apply 1 application to affected area twice daily. buPROPion XL (WELLBUTRIN XL) 300 mg 24 hr tablet Take 1 tablet by mouth once daily. (Patient not taking: Reported on 08/10/2021 ) topiramate (TOPAMAX) 50 mg tablet Take 1 tablet by mouth daily at bedtime. (Patient not taking: Reported on 08/10/2021 ) ibuprofen (MOTRIN) 800 mg tablet Take 1 tablet by mouth every 8 hours as needed. FOR PAIN. famotidine (PEPCID) 40 mg tablet Take 40 mg by mouth as needed. No current facility-administered medications on file prior to visit. Social History Social History Tobacco Use Smoking status: Never Smoker Smokeless tobacco: Never Used Vaping Use Vaping Use: Never used Substance Use Topics Alcohol use: Yes Comment: Rarely Drug use: No REVIEW OF SYSTEMS: as above Reviewed relevant PMHx, PSHx, Social Hx, current medications and allergies. Review of Symptoms See HPI. All other systems are negative. EXAM: BP 120/70 (BP Site: Right Arm, BP Position: Sitting, BP Cuff Size: Large Adult) Pulse 60 Resp 14 Wt 99.9 kg (220 lb 3.2 oz) LMP 02/24/2021 BMI 32.52 kg/m General Appearance: Well appearing, alert, in no acute distress, well-hydrated, well nourished.. Skin: Skin color, texture, turgor normal, no suspicious rashes or lesions. Head: Normocephalic, no masses, lesions, tenderness or abnormalities. Oropharynx: Lips, mucosa, and tongue normal, teeth and gums normal, oropharynx normal. Neck: Supple, no adenopathy; thyroid symmetric, normal size, no bruits. Back:no pain to palpation of vertebrae, good flexion and extension, good range of motion, no muscletenderness, reflexes are 2+ and symmetric, motor and sensory appear to be normal, negative SLR test, no evidence of scoliosis Lungs: Lungs clear to auscultation. No wheezing, rhonchi, rales.. Heart: RRR without murmur, gallop, or rubs. No ectopy. Extremities: No deformities, edema, skin discoloration, clubbing or cyanosis. Good capillary refill. . Musculoskeletal: Spine range of motion normal. Muscular strength intact, No joint swelling, deformity, or tenderness. Neurologic: Gait normal. Reflexes normal and symmetric. Sensation grossly intact.. Rectal: Deferred exam. Health Maintenance List DTAP,TDAP,TD(1 - Tdap) Never done PNEUMOCOCCAL(2 - PCV) due on 01/22/2017 DIABETIC FOOT EXAM due on 11/12/2019 DILATED RETINAL EXAM due on 03/26/2020 DEPRESSION SCREENING due on 08/21/2021 URINE ALBUMIN:CREATININE RATIO due on 09/25/2021 COVID-19 VACCINE(1) due on 01/10/2022 HBA1C due on 11/01/2021 LDL CHOLESTEROL due on 07/02/2022 ANNUAL PCP TEAM CHRONIC DISEASE VISIT due on 08/10/2022 PAP TESTING due on 01/01/2023 HPV TESTING due on 01/01/2023 INFLUENZA Completed HEPATITIS C SCREENING Completed HIV SCREENING Completed ASSESSMENT/PLAN: 1. Upper back pain - ICD9: 724.5, ICD10: M54.9 (primary diagnosis) - Ice for localized tenderness - Warm moist heat for 20 min three times a day - NSAIDS- see orders - Muscle relaxant- prescribed prior. - Xrays- see orders - XR THORACIC LIMITED 2V AP/LAT 2. Uncontrolled type 2 diabetes mellitus with hyperglycemia (HCC) - ICD9: 250.02, ICD10: E11.65 poorly controlled - Continue current medications - Would like to get EMILIA approved. - FREESTYLE EMILIA 14 DAY READER - FREESTYLE EMILIA 14 DAY SENSOR KIT 3. External hemorrhoid - ICD9: 455.3, ICD10: K64.4 Continue to use hemorrhoidal cream BID until gone. Discussed alternative options if symptoms do not improve. - HEMORRHOIDAL 0.25 %-3 %-12 % CREAM 4. TMJ dysfunction - ICD9: 524.60, ICD10: M26.609 Discussed naproxen BID -- pt agreeable and has at home. Discussed PT or amitriprytline -- pt declined. Pt aware these are next options. RTO if symptoms worsen or do not improve. Prescription instructions reviewed with patient as applicable. Potential red flag symptoms discussed with the patient. Reviewed appropriate action plan to take if red flag symptoms occur. Patient agreeable to treatment plan. Polly Quintero APRN.KEEGAN [address] [place] [address] documented in this encounterHolzer Health System05-27-2022 History of Present illness Narrative* Ilana Herrera APRN.KEEGAN - 08/10/2021 10:31 AM EDT Chief Complaint Patient presents with: Medication Follow-up HPI Candelaria Grant is a 36 year old female who presents here today for Above Complaints.. Today: Needs some refills on her medications. Diet-not eating out, holding back on junk food. Cut back on pop a lot-not completely cut out. Exercise-not much. Is at work all day. Does get outside and play with son. Getting out of a poor relationship. Some pain/discomfort in her right neck/upper back. Has had this before. Takes muscle relaxers, Tylenol, ibuprofen. These things do help somewhat-can't take muscle relaxers at work. Since COVID-has had diarrhea, does seem to be improving somewhat. Would like to get back on Adipex. Has tolerated well in the past. Past medical history, appointments, medications, allergies reviewed. Previous Medical History PAST MEDICAL HISTORY Diagnosis Date Abnormal Pap smear of cervix ascus cannot rule out high grade Diabetes mellitus type 2 in obese (HCC) Migraine headache Obesity Previous Surgical History PAST SURGICAL HISTORY Procedure Laterality Date SECTION HX 03/24/2013 CHOLECYSTECTOMY HX INSERTION OF IUD 2017 Mirena IUD removed 10/20/2020 KYLEENA IUD 10/20/2020 NEXPLANON INSERTION 05/10/2013 OSTECTOMY CALCANEUS SPUR W/WO PLNTAR FASCIAL RLS Left Dr. Jimenez REPAIR OF NASAL SEPTUM Family History FAMILY HISTORY Problem Relation Age of Onset No Known Problems Mother Cancer Father pancreatic and renal. No Known Problems Brother No Known Problems Maternal Grandmother Diabetes Maternal Grandfather Diabetes Paternal Grandfather No Known Problems Son Breast Cancer Maternal Aunt Cervical Cancer Paternal Aunt x2- and one cousin other (lymphomia) Other maternal cousin other (leukemia) Other cousin Patient Allergies ALLERGIES Allergen Reactions Macadamia Nut Oil Hives, Swelling, Shortness of Breath Meloxicam Intolerance Headache Current Medications Current Outpatient Medications on File Prior to Visit Medication Sig ibuprofen (MOTRIN) 800 mg tablet take 1 tablet by mouth every 8 hours with food if needed for pain JANUVIA 25 mg tablet take 1 tablet by mouth once daily cyclobenzaprine (FLEXERIL) 10 mg tablet Take 1 tablet by mouth three times daily as needed for muscle spasm. flash glucose scanning reader (HealthQxSTYLE EMILIA 14 DAY READER) use as directed. Dx: Uncontrolled type 2 diabetes without insulin. flash glucose sensor (FREESTYLE EMILIA 14 DAY SENSOR) kit Apply and use as directed. Dx: Uncontrolled type 2 diabetes without insulin. SITagliptin (JANUVIA) 50 mg tablet Take 1 tablet by mouth once daily. albuterol HFA (PROAIR HFA) 90 mcg/actuation inhaler Inhale 2 Puffs as instructed every 6 hours as needed. blood sugar diagnostic (BLOOD GLUCOSE TEST) test strip Test blood sugar(s) 2 times daily. Dx: uncontrolled type 2 DM Lancets lancets Test blood sugar(s)2 times daily. Dx: uncontrolled type 2 DM clotrimazole-betamethasone (LOTRISONE) cream Apply 1 application to affected area twice daily. EPINEPHrine (EPIPEN) 0.3 mg/0.3 mL auto-injector Use for allergic reaction metFORMIN ER (GLUCOPHAGE XR) 500 mg 24 hr tablet Take 3 tablets by mouth daily with breakfast. meclizine (ANTIVERT) 25 mg tab Take 1 tablet by mouth three times daily as needed (dizziness). colestipol (COLESTID) 1 gram tablet Take 1 tablet by mouth once daily. For Diarrhea Post Gall Bladder Removal insulin needles, DISPOSABLE, (BD INSULIN PEN NEEDLE UF) 31 gauge x 5/16" use once daily as directed liraglutide (VICTOZA) 0.6 mg/ 0.1 ml subcutaneous pen injector inject 1.8 milligram subcutaneously once daily ibuprofen (MOTRIN) 800 mg tablet Take 1 tablet by mouth every 8 hours as needed. FOR PAIN. famotidine (PEPCID) 40 mg tablet Take 40 mg by mouth as needed. benzonatate (TESSALON PERLES) 100 mg capsule Take 2 capsules by mouth three times daily as needed. (Patient not taking: Reported on 08/10/2021 ) L. acidophilus-L. rhamnosus 15 billion cell cap Take 1 capsule by mouth once daily. FLORAJEN WOMEN.If on antibiotic, take at least 1-2 hours before or after antibiotic. KEEP REFRIGERATED (Patient not taking: Reported on 06/05/2021 ) buPROPion XL (WELLBUTRIN XL) 300 mg 24 hr tablet Take 1 tablet by mouth once daily. (Patient not taking: Reported on 08/10/2021 ) topiramate (TOPAMAX) 50 mg tablet Take 1 tablet by mouth daily at bedtime. (Patient not taking: Reported on 08/10/2021 ) No current facility-administered medications on file prior to visit. Social History Social History Tobacco Use Smoking status: Never Smoker Smokeless tobacco: Never Used Vaping Use Vaping Use: Never used Substance Use Topics Alcohol use: Yes Comment: Rarely Drug use: No Review of Symptoms REVIEW OF SYSTEMS see HPI, otherwise negative EXAM: BP 134/92 (BP Site: Left Arm, BP Position: Sitting, BP Cuff Size: Regular Adult) Pulse 72 Resp 16 Wt 102.5 kg (226 lb) LMP 02/24/2021 SpO2 96% BMI 33.37 kg/m General Appearance: Well appearing, alert, in no acute distress, well-hydrated, well nourished.. Back:no pain to palpation of vertebrae, good flexion and extension, good range of motion, no muscletenderness, motor and sensory appear to be normal, no evidence of scoliosis Lungs: Lungs clear to auscultation. No wheezing, rhonchi, rales.. Extremities: No deformities, edema, skin discoloration, clubbing or cyanosis. Good capillary refill. . Lymph Nodes: No cervical lymphadenopathy and No supraclavicular lymphadenopathy. Heart-regular, no ectopy appreciated, no murmurs Health Maintenance List DTAP,TDAP,TD(1 - Tdap) Never done PNEUMOCOCCAL(2 - PCV) due on 01/22/2017 DIABETIC FOOT EXAM due on 11/12/2019 DILATED RETINAL EXAM due on 03/26/2020 COVID-19 VACCINE(1) due on 01/10/2022 DEPRESSION SCREENING due on 08/21/2021 URINE ALBUMIN:CREATININE RATIO due on 09/25/2021 HBA1C due on 11/01/2021 LDL CHOLESTEROL due on 07/02/2022 ANNUAL PCP TEAM CHRONIC DISEASE VISIT due on 07/13/2022 PAP TESTING due on 01/01/2023 HPV TESTING due on 01/01/2023 INFLUENZA Completed HEPATITIS C SCREENING Completed HIV SCREENING Completed Data reviewed Previous records, office notes ASSESSMENT/PLAN: 1. Obesity (BMI 30-39.9) - ICD9: 278.00, ICD10: E66.9 (primary diagnosis) Has tolerated Adipex well in the past. Discussed diet, common side effects. Follow up again in 1 month. - PHENTERMINE 37.5 MG TABLET 2. 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 Continue other medications. A1C and follow up appointment in 3 months. Continue to work on diet, weight loss, exercise. - METFORMIN ER 500 MG TABLET,EXTENDED RELEASE 24 HR - HGB A1C - PHENTERMINE 37.5 MG TABLET 3. Dizziness - ICD9: 780.4, ICD10: R42 Refill given - MECLIZINE 25 MG TABLET 4. 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 Allergic reaction, subsequent encounter - ICD9: V58.89, 995.3, ICD10: T78.40XD Refill given - EPINEPHRINE 0.3 MG/0.3 ML INJECTION, AUTO-INJECTOR 6. Acute swimmer's ear of both sides - ICD9: 380.12, ICD10: H60.333 Refill given - CYCLOBENZAPRINE 10 MG TABLET Ilana Herrera APRN.CNP PDMP website checked and validated. All prescriptions have been APPROPRIATELY filled. No suspiciousactivity was identified. 08/10/2021 by Ilana Herrera CNP. documented in this encounterHolzer Health System05-27-2022 Instructions* Patient Instructions* Ilana Herrera APRN.CNP - 08/10/2021 9:32 AM EDT Increase your Januvia to 100mg daily. Ok to use the combinations you have at home now to total 100mg. I also sent in a new prescription. Continue working on your diet and weight loss-you're doing a great job with these improvements. Keep an eye on your diarrhea. If it doesn't continue to improve over the next 2- 3 months, we may need to do some stool testing. Have your A1C drawn prior to our next appointment in 3 months. documented in this encounterHolzer Health System05-23-2022 Miscellaneous Notes* Telephone Encounter - Deepali Skaggs LPN - 08/06/2021 2:42 PM EDT Patient phones requesting refills as follows: Pending Prescriptions Disp Refills IBUPROFEN 800 MG TABLET 30 tablet 1 Sig: take 1 tablet by mouth every 8 hours with food if needed for pain ADELE: Yes RAJIV-07/13/21 Labs-08/01/21 NOV-08/10/21 med filled 07/13/21 Please review and advise. Deepali Skaggs LPN documented in this encounterHolzer Health System05-18-2022 History of Present illness Narrative* Jaron Ayala MD - 08/01/2021 9:34 AM EDT Patient presents with: Diarrhea: x 1 month, MOCTEZUMA, bodyaches x 1 week HPI: Feeling sick since yesterday. Has had diarrhea since COVID 1 month ago; worse diarrhea and abdominal discomfort the last 1 week. No sick contacts. Positive symptoms: Body Aches, Headache (right frontal, migraine location), diarrhea, mild lingering cough since COVID, vaginal irritation/pruritis, slight vaginal discharge, Negative symptoms: Sore throat, Nasal Congestion, Rhinorrhea, Fever, Nausea, Vomiting, OTC: Ibuprofen, has tried imodium Had COVID illness 02/2020 and 06/25/2021. Had influenza 06/25/21 also. Last antibiotic was augmentin in May and amoxil in June. Had Diflucan in May, feels she may begetting yeast infection back. BS 200-300 this week. PMHx of diarrhea. PAST MEDICAL HISTORY Diagnosis Date Abnormal Pap smear of cervix ascus cannot rule out high grade Diabetes mellitus type 2 in obese (HCC) Migraine headache Obesity MEDICATIONS: Current Outpatient Medications Medication Sig JANUVIA 25 mg tablet take 1 tablet by mouth once daily ibuprofen (MOTRIN) 800 mg tablet Take 1 tablet by mouth every 8 hours as needed for pain. Take withfood. cyclobenzaprine (FLEXERIL) 10 mg tablet Take 1 tablet by mouth three times daily as needed for muscle spasm. flash glucose scanning reader (HealthQxSTYLE EMILIA 14 DAY READER) use as directed. Dx: Uncontrolled type 2 diabetes without insulin. flash glucose sensor (FREESTYLE EMILIA 14 DAY SENSOR) kit Apply and use as directed. Dx: Uncontrolled type 2 diabetes without insulin. SITagliptin (JANUVIA) 50 mg tablet Take 1 tablet by mouth once daily. albuterol HFA (PROAIR HFA) 90 mcg/actuation inhaler Inhale 2 Puffs as instructed every 6 hours as needed. benzonatate (TESSALON PERLES) 100 mg capsule Take 2 capsules by mouth three times daily as needed. blood sugar diagnostic (BLOOD GLUCOSE TEST) test strip Test blood sugar(s) 2 times daily. Dx: uncontrolled type 2 DM Lancets lancets Test blood sugar(s)2 times daily. Dx: uncontrolled type 2 DM clotrimazole-betamethasone (LOTRISONE) cream Apply 1 application to affected area twice daily. EPINEPHrine (EPIPEN) 0.3 mg/0.3 mL auto-injector Use for allergic reaction metFORMIN ER (GLUCOPHAGE XR) 500 mg 24 hr tablet Take 3 tablets by mouth daily with breakfast. meclizine (ANTIVERT) 25 mg tab Take 1 tablet by mouth three times daily as needed (dizziness). colestipol (COLESTID) 1 gram tablet Take 1 tablet by mouth once daily. For Diarrhea Post Gall Bladder Removal insulin needles, DISPOSABLE, (BD INSULIN PEN NEEDLE UF) 31 gauge x 5/16" use once daily as directed liraglutide (VICTOZA) 0.6 mg/ 0.1 ml subcutaneous pen injector inject 1.8 milligram subcutaneously once daily buPROPion XL (WELLBUTRIN XL) 300 mg 24 hr tablet Take 1 tablet by mouth once daily. topiramate (TOPAMAX) 50 mg tablet Take 1 tablet by mouth daily at bedtime. ibuprofen (MOTRIN) 800 mg tablet Take 1 tablet by mouth every 8 hours as needed. FOR PAIN. famotidine (PEPCID) 40 mg tablet Take 40 mg by mouth as needed. L. acidophilus-L. rhamnosus 15 billion cell cap Take 1 capsule by mouth once daily. FLORAJEN WOMEN.If on antibiotic, take at least 1-2 hours before or after antibiotic. KEEP REFRIGERATED (Patient not taking: Reported on 06/05/2021 ) No current facility-administered medications for this visit. ALLERGIES: ALLERGIES Allergen Reactions Macadamia Nut Oil Hives, Swelling, Shortness of Breath Meloxicam Intolerance Headache VITALS: BP 122/78 Pulse 70 Temp (!) 35.8 C (96.5 F) Resp 21 Wt 102.2 kg (225 lb 6.4 oz) LMP 02/24/2021 SpO2 100% BMI 33.29 kg/m PHYSICAL EXAM: GEN: mildly ill appearing HEENT: PERRL, EOMI, conjunctiva clear Ears: canals clear. TMs without erythema, bulge, or effusion Sinuses: tender right frontal sinus, non-tender maxillary sinuses Throat: moist mucous membranes, no erythema, no exudate Neck: supple, no thyromegaly, no lymphadenopathy HEART: regular rate and rhythm, no murmurs LUNGS: clear to auscultation, no wheezes or crackles, no increased WOB ABD: Soft, non-distended, non-tender, no masses Component Latest Ref Rng & Units 07/02/2021 Lipase 16 - 61 U/L 26 Component Latest Ref Rng & Units 07/02/2021 Alkaline Phosphatase 34 - 123 U/L 70 AST 13 - 35 U/L 17 ALT 7 - 38 U/L 39 (H) Glucose 74 - 99 mg/dL 267 (H) ASSESSMENT/PLAN: 1. Diarrhea, unspecified type - ICD9: 787.91, ICD10: R19.7 (primary diagnosis) 2. Abdominal pain, unspecified abdominal location - ICD9: 789.00, ICD10: R10.9 Lingering diarrhea 1 month with worsening for the last week. Differential includes long COVID, exacerbation of chronic diarrhea, C. difficile, other infectious diarrhea. Supportive care with rest and hydration. Off work today and tomorrow. - ENTERIC BACTERIAL PANEL BY PCR - C. DIFFICILE PCR - COMP METABOLIC PANEL 3. Body aches - ICD9: 780.96, ICD10: R52 Probably new acute illness. Very low risk of COVID or influenza reinfection within 1 month. 4. Vaginal irritation - ICD9: 623.9, ICD10: N89.8 Discussed re-testing or trial of treating yeast. She will take - FLUCONAZOLE 150 MG TABLET and follow up if symptoms do not improve. She is aware uncontrolled glucose will make her more susseptible to yeast infections. 5. Uncontrolled type 2 diabetes mellitus with hyperglycemia (HCC) - ICD9: 250.02, ICD10: E11.65 - HGB A1C Blood tests ordered with CC to PCP and Gerhard Herrera for appointment 08/10/21. Jaron Ayala MD documented in this encounterHolzer Health System05-10-2022 Miscellaneous Notes* Telephone Encounter - Kaylie Barnett LPN - 07/24/2021 1:01 PM EDT Patient has been identified by name and date of : Yes Patient phones for refill(s): Pending Prescriptions Disp Refills JANUVIA 25 MG TABLET 30 tablet 3 Sig: take 1 tablet by mouth once daily ADELE: Yes Date of last office visit in primary care: 07/13/21 Last 2 Encounter Wt Readings: Date: Wt: 07/13/2021 102.1 kg (225 lb) 07/02/2021 103.4 kg (228 lb) Previous labs/tests for medication: Not applicable Please advise. Thank you. Kaylie Barnett LPN documented in this encounterHolzer Health System04-18-2022 History of Present illness Narrative* Viola Sommer, RT(R) - 07/02/2021 9:40 AM EDT Radiology Service Progress Note PATIENT NAME: Candelaria Grant DATE OF SERVICE: July 02, 2021 TIME: 9:50 AM PATIENT IDENTITY VERIFICATION COMPLETED USING TWO (2) IDENTIFIERS: Name and Date of confirmedby patient verbally. FALL SCREENING: Has the patient had 2 falls in the last year or 1 fall with injury or currently using an Ambulatory Assistive Device (Walker, Cane, Wheelchair, Crutches, etc.)? No PATIENT GENDER DATA: Female. status: : No status: NO. PATIENT RELEVANT IMPLANT DATA REVIEWED: Yes RADIOLOGY DEPARTMENT: General X-ray: Exam(s) Completed: Chest X-Ray PERIPHERAL IV DATA: Not applicable SIGNED BY: RT Josh(R) July 02, 2021 9:50 AM documented in this encounterHolzer Health System04-18-2022 History of Present illness Narrative* Rosina Iverson APRN.GUM COOK - 07/02/2021 9:10 AM EDT CC: Patient presents with: Cough: Productive cough x 2 months HPI Candelaria Grant is a 36 year old female who presents today for COVID with cough. Has had symptoms for about 10 days, went to Urgent Care last Friday was positive for flu and COVID.Currently has a cough that is occasionally producing white sputum. Also has shortness of breath, pain to bilateral chest corona with deep breath, runny nose, right ear pain, headache, fatigue, a couple bouts of diarrhea, decreased appetite, and shortness of breath. Has coughed so hard that she has thrown up multiple times and feels the cough is worsening. History of a blood clot in lower extremity many years ago. Per patient no cause of DVT was found and is no longer on anticoagulant. Denies wheezing, fever, chills, nausea, abdominal pain, ear drainage, or palpitations. Has tried Delsym OTC as instructed by urgent care on Friday but has not helped. Was also prescribedbenzonatate on 06/04 which she states has helped a little, but has also been only taking 1 capsule. REVIEW OF SYSTEMS General: no fevers, no chills, no night sweats, no recurrent infections and no significant changes in weight Respiratory: See HPI Cardiovascular: no chest pressure, no palpitations and no swelling PAST MEDICAL HISTORY Diagnosis Date Abnormal Pap smear of cervix ascus cannot rule out high grade Diabetes mellitus type 2 in obese (HCC) Migraine headache Obesity PAST SURGICAL HISTORY Procedure Laterality Date SECTION HX 03/24/2013 CHOLECYSTECTOMY HX INSERTION OF IUD 2017 Mirena IUD removed 10/20/2020 KYLEENA IUD 10/20/2020 NEXPLANON INSERTION 05/10/2013 OSTECTOMY CALCANEUS SPUR W/WO PLNTAR FASCIAL RLS Left Dr. Jimenez REPAIR OF NASAL SEPTUM ALLERGIES Macadamia Nut Oil and Meloxicam MEDICATIONS benzonatate (TESSALON PERLES) 100 mg capsule Take 2 capsules by mouth three times daily as needed. albuterol HFA (PROAIR HFA) 90 mcg/actuation inhaler Inhale 2 Puffs as instructed every 6 hours as needed. ibuprofen (MOTRIN) 800 mg tablet Take 1 tablet by mouth every 8 hours as needed for pain. Take withfood. cyclobenzaprine (FLEXERIL) 10 mg tablet Take 1 tablet by mouth three times daily as needed for muscle spasm. SITagliptin (JANUVIA) 25 mg tablet Take 1 tablet by mouth once daily. blood sugar diagnostic (BLOOD GLUCOSE TEST) test strip Test blood sugar(s) 2 times daily. Dx: uncontrolled type 2 DM Lancets lancets Test blood sugar(s)2 times daily. Dx: uncontrolled type 2 DM L. acidophilus-L. rhamnosus 15 billion cell cap Take 1 capsule by mouth once daily. FLORAJEN WOMEN.If on antibiotic, take at least 1-2 hours before or after antibiotic. KEEP REFRIGERATED clotrimazole-betamethasone (LOTRISONE) cream Apply 1 application to affected area twice daily. EPINEPHrine (EPIPEN) 0.3 mg/0.3 mL auto-injector Use for allergic reaction flash glucose scanning reader (FREESTYLE EMILIA 14 DAY READER) use as directed. Dx: Uncontrolled type 2 diabetes without insulin. flash glucose sensor (FREESTYLE EMILIA 14 DAY SENSOR) kit Apply and use as directed. Dx: Uncontrolled type 2 diabetes without insulin. metFORMIN ER (GLUCOPHAGE XR) 500 mg 24 hr tablet Take 3 tablets by mouth daily with breakfast. meclizine (ANTIVERT) 25 mg tab Take 1 tablet by mouth three times daily as needed (dizziness). colestipol (COLESTID) 1 gram tablet Take 1 tablet by mouth once daily. For Diarrhea Post Gall Bladder Removal insulin needles, DISPOSABLE, (BD INSULIN PEN NEEDLE UF) 31 gauge x 5/16" use once daily as directed liraglutide (VICTOZA) 0.6 mg/ 0.1 ml subcutaneous pen injector inject 1.8 milligram subcutaneously once daily buPROPion XL (WELLBUTRIN XL) 300 mg 24 hr tablet Take 1 tablet by mouth once daily. topiramate (TOPAMAX) 50 mg tablet Take 1 tablet by mouth daily at bedtime. ibuprofen (MOTRIN) 800 mg tablet Take 1 tablet by mouth every 8 hours as needed. FOR PAIN. famotidine (PEPCID) 40 mg tablet Take 40 mg by mouth as needed. FAMILY HISTORY Problem Relation Age of Onset No Known Problems Mother Cancer Father pancreatic and renal. No Known Problems Brother No Known Problems Maternal Grandmother Diabetes Maternal Grandfather Diabetes Paternal Grandfather No Known Problems Son Breast Cancer Maternal Aunt Cervical Cancer Paternal Aunt x2- and one cousin other (lymphomia) Other maternal cousin other (leukemia) Other cousin Social History Tobacco Use Smoking status: Never Smoker Smokeless tobacco: Never Used Vaping Use Vaping Use: Never used Substance Use Topics Alcohol use: Yes Comment: Rarely Drug use: No PHYSICAL EXAM BP 128/86 Pulse 73 Temp 36.4 C (97.6 F) (Temporal) Resp 16 Wt 103.4 kg (228 lb) LMP 02/24/2021 SpO2 100% BMI 33.67 kg/m General Appearance: well appearing, in no acute distress, alert Eyes: PERRLA, EOM's intact, conjunctiva pink and moist, no icterus, sclera white, non-injected Ears: external ears normal to inspection and palpation, canals clear, Left tympanic membrane normal. , Right tympanic color is reddened without bulging or drainage Nose/sinus: Nares normal. Septum midline. Mucosa normal. No drainage., No sinus tenderness Lungs: Lungs clear to auscultation. No wheezing, rhonchi, rales. Heart: RRR without murmur, gallop, or rubs. No ectopy Health maintenance reviewed with patient: DTAP,TDAP,TD(1 - Tdap) Never done DIABETIC FOOT EXAM due on 11/12/2019 DILATED RETINAL EXAM due on 03/26/2020 HBA1C due on 06/26/2021 COVID-19 VACCINE(1) due on 01/10/2022 DEPRESSION SCREENING due on 08/21/2021 URINE ALBUMIN:CREATININE RATIO due on 09/25/2021 LDL CHOLESTEROL due on 09/25/2021 ANNUAL PCP TEAM CHRONIC DISEASE VISIT due on 03/28/2022 PAP TESTING due on 01/01/2023 HPV TESTING due on 01/01/2023 ONE PNEUMOVAX PRIOR TO AGE 65 Completed INFLUENZA Completed HEPATITIS C SCREENING Completed HIV SCREENING Completed MENINGOCOCCAL CONJUGATE Aged Out DATA REVIEWED: Most recent labs and imaging results. ASSESSMENT/PLAN: 1. Cough - ICD9: 786.2, ICD10: R05.9 (primary diagnosis) - worsening. - take tessalon 2 tablets 3 times a day as needed for cough - Can also try robitussin as indicated on box but do not take more than what is recommended - XR CHEST 2V FRONTAL/LAT 2. Shortness of breath - ICD9: 786.05, ICD10: R06.02 - with her history of DVT, need to be evaluated further for this. - Note excusing her from work given for today and tomorrow - D-DIMER - XR CHEST 2V FRONTAL/LAT - Go to ER for chest pain, increased shortness of breath, palpitations or any other urgent concerning symptoms - keep follow up appointment with Ilana Herrera 3. History of DVT (deep vein thrombosis) - ICD9: V12.51, ICD10: Z86.718 As above - D-DIMER 4. Chest pain on breathing - ICD9: 786.52, ICD10: R07.1 As above - D-DIMER - XR CHEST 2V FRONTAL/LAT 5. Right otitis media, unspecified otitis media type - ICD9: 382.9, ICD10: H66.91 - amoxicillin as prescribed Prescription instructions reviewed with patient as applicable. Potential red flag symptoms discussed with the patient. Reviewed appropriate action plan to take if red flag symptoms occur. Patient agreeable to treatment plan. Rosina Iverson APRN.CNP documented in this encounterHolzer Health System04-12-2022 Miscellaneous Notes* Telephone Encounter - Yaquelin Ta APRN.CNP - 06/26/2021 7:58 AM EDT I attempted to reach patient to advise of positive COVID AND positive Influenza A test result. "mailbox is full and cannot accept messages". No answer, left message. If patient returns call, May be advised of positive test result and The CDC recommends that people refrain from work and isolate themselves until the following criteria are met: 1. At least 24 hours have passed since last fever without the use of fever- reducing medications 2. Other symptoms have improved 3. At least 5 days have passed since symptoms first appeared Yaquelin Ta APRN.KEEGAN documented in this encounterHol[facility]04-[facility]22 History of Present illness Narrative* Theresa Wheeler PA-C - 06/25/2021 10:11 AM EDT 06/25/2021 Patient presents with: Cough: runny nose, fatigue, R ear pain, eyes burning x3 days SUBJECTIVE: This is a 36 year old that is here today for Complaint(s) of cough and rhinorrhea x 3 days. Having R ear pain associated, constant per patient. Notes nasal congestion. Overall feeling fatigued. Possible intermittent SOB-mild per patient, no wheezing. Fever initially with Tmax 102, last known fever yesterday. Patient did have a flu shot, unvaccinated for COVID. No recent COVID in last 90 days. Denies body aches, chest pain, no pleuritic chest pain, leg swelling, calf pain. Son was + for influenza A last week. No known history of asthma. No recent long travel, immobilization PAST MEDICAL HISTORY Diagnosis Date Abnormal Pap smear of cervix ascus cannot rule out high grade Diabetes mellitus type 2 in obese (HCC) Migraine headache Obesity ALLERGIES Macadamia Nut Oil and Meloxicam MEDICATIONS Current Outpatient Medications Medication Sig benzonatate (TESSALON PERLES) 100 mg capsule Take 2 capsules by mouth three times daily as needed. albuterol HFA (PROAIR HFA) 90 mcg/actuation inhaler Inhale 2 Puffs as instructed every 6 hours as needed. ibuprofen (MOTRIN) 800 mg tablet Take 1 tablet by mouth every 8 hours as needed for pain. Take withfood. cyclobenzaprine (FLEXERIL) 10 mg tablet Take 1 tablet by mouth three times daily as needed for muscle spasm. SITagliptin (JANUVIA) 25 mg tablet Take 1 tablet by mouth once daily. blood sugar diagnostic (BLOOD GLUCOSE TEST) test strip Test blood sugar(s) 2 times daily. Dx: uncontrolled type 2 DM Lancets lancets Test blood sugar(s)2 times daily. Dx: uncontrolled type 2 DM L. acidophilus-L. rhamnosus 15 billion cell cap Take 1 capsule by mouth once daily. FLORAJEN WOMEN.If on antibiotic, take at least 1-2 hours before or after antibiotic. KEEP REFRIGERATED (Patient not taking: Reported on 06/05/2021 ) clotrimazole-betamethasone (LOTRISONE) cream Apply 1 application to affected area twice daily. EPINEPHrine (EPIPEN) 0.3 mg/0.3 mL auto-injector Use for allergic reaction flash glucose scanning reader (FREESTYLE EMILIA 14 DAY READER) use as directed. Dx: Uncontrolled type 2 diabetes without insulin. flash glucose sensor (FREESTYLE EMILIA 14 DAY SENSOR) kit Apply and use as directed. Dx: Uncontrolled type 2 diabetes without insulin. metFORMIN ER (GLUCOPHAGE XR) 500 mg 24 hr tablet Take 3 tablets by mouth daily with breakfast. meclizine (ANTIVERT) 25 mg tab Take 1 tablet by mouth three times daily as needed (dizziness). colestipol (COLESTID) 1 gram tablet Take 1 tablet by mouth once daily. For Diarrhea Post Gall Bladder Removal insulin needles, DISPOSABLE, (BD INSULIN PEN NEEDLE UF) 31 gauge x 5/16" use once daily as directed liraglutide (VICTOZA) 0.6 mg/ 0.1 ml subcutaneous pen injector inject 1.8 milligram subcutaneously once daily buPROPion XL (WELLBUTRIN XL) 300 mg 24 hr tablet Take 1 tablet by mouth once daily. topiramate (TOPAMAX) 50 mg tablet Take 1 tablet by mouth daily at bedtime. ibuprofen (MOTRIN) 800 mg tablet Take 1 tablet by mouth every 8 hours as needed. FOR PAIN. famotidine (PEPCID) 40 mg tablet Take 40 mg by mouth as needed. No current facility-administered medications for this visit. SOCIAL HISTORY Social History Tobacco Use Smoking status: Never Smoker Smokeless tobacco: Never Used Vaping Use Vaping Use: Never used Substance Use Topics Alcohol use: Yes Comment: Rarely Drug use: No REVIEW OF SYSTEMS See HPI OBJECTIVE: BP 130/84 Pulse 98 Temp 36.4 C (97.6 F) Resp 20 Wt 102.2 kg (225 lb 3.2 oz) LMP 02/24/2021 SpO2 99% BMI 33.26 kg/m APPEARANCE alert, in no acute distress, well-hydrated, well nourished. EYES PERRLA, conjunctiva and sclera normal. EARS External ears normal, canals clear. TMs normal SERGIO, no erythema. Normal landmarks. No TTP mastoid process SERGIO NOSE/SINUS Nares normal. Septum midline. Mucosa normal. + clear drainage. + mild SERGIO maxillary sinus tenderness. THROAT mild erythema, no exudate. Uvula midline NECK Supple, + SERGIO anterior cervical adenopathy; HEART RRR with normal S1 and S2 LUNG clear to auscultation, No wheezing, rhonchi, rales. EXTREMITIES Extremities normal, No edema and Negative Homans'. SERGIO ASSESSMENT/PLAN: 1. Cough - ICD9: 786.2, ICD10: R05.9 R/o COVID/FLU. Suspect possible flu with recent exposure-son PERC negative, no pleuritic chest pain, negative homans'. Reviewed red flags and when to seek care sooner. - COVID WITH FLUA+B, ROUTINE F/u in 3-5 days if not improving, sooner if worsening OTC cough/cold medications prn The patient indicates understanding of these issues and agrees with the plan. Theresa Wheeler PA-C documented in this encounterHolzer [facility] System03-24-2022 Hospital Discharge instructions Patient Education 06/07/2021 11:10:51 Acute Bronchitis Acute Bronchitis Your healthcare provider has told you that you have acute bronchitis. Bronchitis is infection or inflammation of the bronchial tubes (airways in the lungs). Normally, air moves easily in and out of the airways. Bronchitis narrows the airways, making it harder for air to flow in and out of the lungs. This causes symptoms such as shortness of breath, coughing up yellow or green mucus, and wheezing.Bronchitis can be acute or chronic. Acute means the condition comes on quickly and goes away in a short time, usually within 3 to 10 days. Chronic means a condition lasts a long time and often comes back. What causes acute bronchitis? Acute bronchitis almost always starts as a viral respiratory infection, such as a cold or the flu. Certain factors make it more likely for a cold or flu to turn into bronchitis. These include being very young, being elderly, having a heart or lung problem, or having a weak immune system. Cigarette smoking also makes bronchitis more likely. When bronchitis develops, the airways become swollen. The airways may also become infected with bacteria. This is known as a secondary infection. Diagnosing acute bronchitis Your healthcare provider will examine you and ask about your symptoms and health history. You may also have a sputum culture to test the fluid in your lungs. Chest X-rays may be done to look for infection in the lungs. Treating acute bronchitis Bronchitis usually clears up as the cold or flu goes away. You can help feel better faster by doingthe following: Take medicine as directed. You may be told to take ibuprofen or other mrya-fig-uuvpplm medicines. These help relieve inflammation in your bronchial tubes. Your healthcare provider may prescribe an inhaler to help open up the bronchial tubes. Most of the time, acute bronchitis is caused by a viral in fection. Antibiotics are usually not prescribed for viral infections. Drink plenty of fluids, such as water, juice, or warm soup. Fluids loosen mucus so that you can cough it up. This helps you breathe more easily. Fluids also prevent dehydration. Make sure you get plenty of rest. Do not smoke. Do not allow anyone else to smoke in your home. Recovery and follow-up Follow up with your doctor as you are told. You will likely feel better in a week or two. But a drycough can linger beyond that time. Let your doctor know if you still have symptoms (other than a dry cough) after 2 weeks, or if you re prone to getting bronchial infections. Take steps to protect yourself from future infections. These steps include stopping smoking and avoiding tobacco smoke, washing your hands often, and getting a yearly flu shot. When to call your healthcare provider Call the healthcare provider if you have any of the following: Fever of 100.4 F (38.0 C) or higher, or as advised Symptoms that get worse, or new symptoms Trouble breathing Symptoms that don t start to improve within a week, or within 3 days of taking antibiotics [id number] [employer] [place] [address], [place] [address]. All rights reserved. This information is not intended as a substitute for professional medical care. Always follow yourhealthcare professional's instructions. Follow Up Care 06/07/2021 10:58:49 With:GIGI CARRILLO DO Address: [address] [place] [address]- When:2-4 days [facility] 03-23-2022 Miscellaneous Notes* Telephone Encounter - Hayley Lockwood RN - 06/06/2021 1:48 PM EDT Patient notified. Hayley Lockwood RN The following approved medication requests have been transmitted electronically. Signed Prescriptions Disp Refills fluconazole (DIFLUCAN) 150 mg tablet 1 tablet 0 Sig: Take 1 tablet by mouth one time only for 1 dose. Authorizing Provider: [facility] Pharmacy Information Pharmacy Address Telephone [address] [id number] * Telephone Encounter - aHyley Lockwood RN - 06/06/2021 1:42 PM EDT Attempted to call patient. Unable to leave message, mailbox is full. Hayley Lockwood RN * Telephone Encounter - Pita Chase APRN.CNM - 06/06/2021 1:13 PM EDT Positive for yeast. Rx for Diflucan 150 mg PO X 1 sent to pharmacy. Please notify patient. JACKIE Ambriz documented in this encounterHolzer [facility] System03-22-2022 History of Present illness Narrative* Jessica Aponte APRN.CNM - 06/05/2021 2:40 PM EDT Candelaria Grant is a 36 year old female who presents for problem visit for vaginal irritation. HPI: Thinks she has a vaginal infection. Vagina feels irritated and knows she has a yeast infection. No burning but irritated. Has discharge. Recent illness and knows BS is off. Went to Urgent Care 1week ago and given Diflucan 1 pill, did not help and usually needs at least 2 to resolve symptoms. Single, current partner on and off and would like STD testing. Together last night and condom broke.Uses a condom every time. OB History T1 L1 SAB0 IAB0 Ectopic0 Multiple0 Live Births0 Comment: 1 section [employer] History LMP: 02/24/2021, IUD Age at Menarche: Age at First : Age at Menopause: [employer] History Comments: Sexual Activity: Yes; Male Contraception: I.U.D. PAST MEDICAL HISTORY Diagnosis Date Abnormal Pap smear of cervix ascus cannot rule out high grade Diabetes mellitus type 2 in obese (HCC) Migraine headache Obesity PAST SURGICAL HISTORY Procedure Laterality Date SECTION HX 03/24/2013 CHOLECYSTECTOMY HX INSERTION OF IUD 2016 Mirena IUD removed 10/20/2020 KYLEENA IUD 10/20/2020 NEXPLANON INSERTION 05/10/2013 OSTECTOMY CALCANEUS SPUR W/WO PLNTAR FASCIAL RLS Left Dr. Jimenez REPAIR OF NASAL SEPTUM FAMILY HISTORY Problem Relation Age of Onset No Known Problems Mother Cancer Father pancreatic and renal. No Known Problems Brother No Known Problems Maternal Grandmother Diabetes Maternal Grandfather Diabetes Paternal Grandfather No Known Problems Son Breast Cancer Maternal Aunt Cervical Cancer Paternal Aunt x2- and one cousin other (lymphomia) Other maternal cousin other (leukemia) Other cousin Social History Tobacco Use Smoking status: Never Smoker Smokeless tobacco: Never Used Vaping Use Vaping Use: Never used Substance Use Topics Alcohol use: Yes Comment: Rarely Drug use: No Current Outpatient Medications Medication Sig amoxicillin-clavulanic acid (AUGMENTIN) 875-125 mg per tablet Take 1 tablet by mouth twice daily for 10 days. benzonatate (TESSALON PERLES) 100 mg capsule Take 2 capsules by mouth three times daily as needed. ibuprofen (MOTRIN) 800 mg tablet Take 1 tablet by mouth every 8 hours as needed for pain. Take withfood. cyclobenzaprine (FLEXERIL) 10 mg tablet Take 1 tablet by mouth three times daily as needed for muscle spasm. SITagliptin (JANUVIA) 25 mg tablet Take 1 tablet by mouth once daily. blood sugar diagnostic (BLOOD GLUCOSE TEST) test strip Test blood sugar(s) 2 times daily. Dx: uncontrolled type 2 DM Lancets lancets Test blood sugar(s)2 times daily. Dx: uncontrolled type 2 DM clotrimazole-betamethasone (LOTRISONE) cream Apply 1 application to affected area twice daily. EPINEPHrine (EPIPEN) 0.3 mg/0.3 mL auto-injector Use for allergic reaction flash glucose scanning reader (HealthQxSTYLE EMILIA 14 DAY READER) use as directed. Dx: Uncontrolled type 2 diabetes without insulin. flash glucose sensor (FREESTYLE EMILIA 14 DAY SENSOR) kit Apply and use as directed. Dx: Uncontrolled type 2 diabetes without insulin. metFORMIN ER (GLUCOPHAGE XR) 500 mg 24 hr tablet Take 3 tablets by mouth daily with breakfast. colestipol (COLESTID) 1 gram tablet Take 1 tablet by mouth once daily. For Diarrhea Post Gall Bladder Removal insulin needles, DISPOSABLE, (BD INSULIN PEN NEEDLE UF) 31 gauge x 5/16" use once daily as directed liraglutide (VICTOZA) 0.6 mg/ 0.1 ml subcutaneous pen injector inject 1.8 milligram subcutaneously once daily buPROPion XL (WELLBUTRIN XL) 300 mg 24 hr tablet Take 1 tablet by mouth once daily. topiramate (TOPAMAX) 50 mg tablet Take 1 tablet by mouth daily at bedtime. ibuprofen (MOTRIN) 800 mg tablet Take 1 tablet by mouth every 8 hours as needed. FOR PAIN. famotidine (PEPCID) 40 mg tablet Take 40 mg by mouth as needed. albuterol HFA (PROAIR HFA) 90 mcg/actuation inhaler Inhale 2 Puffs as instructed every 6 hours as needed. L. acidophilus-L. rhamnosus 15 billion cell cap Take 1 capsule by mouth once daily. FLORAJEN WOMEN.If on antibiotic, take at least 1-2 hours before or after antibiotic. KEEP REFRIGERATED (Patient not taking: Reported on 06/05/2021 ) meclizine (ANTIVERT) 25 mg tab Take 1 tablet by mouth three times daily as needed (dizziness). No current facility-administered medications for this visit. Allergies As of Date: 06/05/2021 Allergen Noted Reaction MACADAMIA NUT OIL 04/08/2014 Hives, Swelling, and Shortness of Breath MELOXICAM 08/30/2015 Intolerance Fully Assessed 06/05/2021 REVIEW OF SYSTEMS Abdomen: No bloating, early satiety, indigestion, or increased flatulence. No abdominal pain, nausea, vomiting, diarrhea, or constipation. Bladder: No dysuria, gross hematuria, urinary frequency, urinary urgency, or incontinence. Breast: No breast lumps, nipple d/c, overlying skin changes, redness or skin retraction. Expanded ROS: N/A Allergies and current medication updated:Yes EXAM: BP 130/90 Wt 229 lb (103.9kg) LMP 02/24/2021 GENERAL: pleasant, female in no apparent distress HEENT: Normocephalic, atraumatic, mucus membranes moist and no lesions NECK: Supple and full range of motion DERMATOLOGY: Normal and without lesions PELVIC: external genitalia normal, normal Bartholin's glands, urethra, Lorenzo's glands, no vulvar lesions, no cervical lesions, good vaginal support, physiologic discharge present, normal appearing perineal body and perianal region BIMANUAL: uterus normal size, shape and consistency, no adnexal masses and non-tender NEURO: alert and oriented x3,exam grossly non-focal EXTREMITIES: normal ASSESSMENT AND PLAN: 1. Screen for STD (sexually transmitted disease) - ICD9: V74.5, ICD10: Z11.3 (primary diagnosis) - MARCELO / TRICHOMONAS AMPLIFICATION - GC/CHLAMYDIA DNA DET 2. Vaginal irritation - ICD9: 623.9, ICD10: N89.8 - BACTERIAL VAGINOSIS AMPLIFICATION - MARCELO / TRICHOMONAS AMPLIFICATION Recommend return in 4 weeks for annual exam and repeat STD testing with blood work. Jessica Aponte APRN.CNM documented in this encounterHolzer Health System03-21-2022 History of Present illness Narrative* Maria R Marley PA-C - 06/04/2021 5:41 PM EDT This note was created using Bloggerceriter. Subjective Candelaria Grant is a 36 year old female. HPI Presents with cough, sore throat congestion for 2 weeks. She has tried NyQuil [id number]. Shehad a fever in the beginning but none now. Ribs do hurt from coughing. She does have some right-sided sinus pressure as well. She is an uncontrolled diabetic. She is not a smoker. No vomiting or diarrhea. Her child was sick with similar symptoms but he has been better for a while. Cough is productive. Review of Systems Constitutional: Positive for fever. HENT: Positive for congestion, ear pain, postnasal drip, sinus pressure and sinus pain. Respiratory: Positive for cough and shortness of breath. Cardiovascular: Negative. Gastrointestinal: Negative. Genitourinary: Negative. Musculoskeletal: Negative. All other systems reviewed and are negative. PAST MEDICAL HISTORY Diagnosis Date Abnormal Pap smear of cervix ascus cannot rule out high grade Diabetes mellitus type 2 in obese (HCC) Migraine headache Obesity Current Outpatient Medications Medication Sig Dispense Refill ibuprofen (MOTRIN) 800 mg tablet Take 1 tablet by mouth every 8 hours as needed for pain. Take withfood. 30 tablet 1 cyclobenzaprine (FLEXERIL) 10 mg tablet Take 1 tablet by mouth three times daily as needed for muscle spasm. 30 tablet 1 SITagliptin (JANUVIA) 25 mg tablet Take 1 tablet by mouth once daily. 30 tablet 3 blood sugar diagnostic (BLOOD GLUCOSE TEST) test strip Test blood sugar(s) 2 times daily. Dx: uncontrolled type 2 DM 50 Strip 11 Lancets lancets Test blood sugar(s)2 times daily. Dx: uncontrolled type 2 DM 100 Each 11 L. acidophilus-L. rhamnosus 15 billion cell cap Take 1 capsule by mouth once daily. FLORAJEN WOMEN.If on antibiotic, take at least 1-2 hours before or after antibiotic. KEEP REFRIGERATED 30 capsule 11 clotrimazole-betamethasone (LOTRISONE) cream Apply 1 application to affected area twice daily. 30 g1 EPINEPHrine (EPIPEN) 0.3 mg/0.3 mL auto-injector Use for allergic reaction 2 Each 1 flash glucose scanning reader (FREESTYLE EMILIA 14 DAY READER) use as directed. Dx: Uncontrolled type 2 diabetes without insulin. 1 Each 0 flash glucose sensor (FREESTYLE EMILIA 14 DAY SENSOR) kit Apply and use as directed. Dx: Uncontrolled type 2 diabetes without insulin. 1 Kit 3 metFORMIN ER (GLUCOPHAGE XR) 500 mg 24 hr tablet Take 3 tablets by mouth daily with breakfast. 270 tablet 3 meclizine (ANTIVERT) 25 mg tab Take 1 tablet by mouth three times daily as needed (dizziness). 30 tablet 0 colestipol (COLESTID) 1 gram tablet Take 1 tablet by mouth once daily. For Diarrhea Post Gall Bladder Removal 90 tablet 3 insulin needles, DISPOSABLE, (BD INSULIN PEN NEEDLE UF) 31 gauge x 5/16" use once daily as [id number] Each 1 liraglutide (VICTOZA) 0.6 mg/ 0.1 ml subcutaneous pen injector inject 1.8 milligram subcutaneously once daily 27 mL 3 buPROPion XL (WELLBUTRIN XL) 300 mg 24 hr tablet Take 1 tablet by mouth once daily. 90 tablet 3 topiramate (TOPAMAX) 50 mg tablet Take 1 tablet by mouth daily at bedtime. 30 tablet 1 ibuprofen (MOTRIN) 800 mg tablet Take 1 tablet by mouth every 8 hours as needed. FOR PAIN. 90 tablet 3 famotidine (PEPCID) 40 mg tablet Take 40 mg by mouth as needed. 0 amoxicillin-clavulanic acid (AUGMENTIN) 875-125 mg per tablet Take 1 tablet by mouth twice daily for 10 days. 20 tablet 0 benzonatate (TESSALON PERLES) 100 mg capsule Take 2 capsules by mouth three times daily as needed. 30 capsule 0 albuterol HFA (PROAIR HFA) 90 mcg/actuation inhaler Inhale 2 Puffs as instructed every 6 hours as needed. 1 Inhaler 0 No current facility-administered medications for this visit. PAST SURGICAL HISTORY Procedure Laterality Date SECTION HX 03/24/2013 CHOLECYSTECTOMY HX INSERTION OF IUD 2017 Mirena IUD removed 10/20/2020 KYLEENA IUD 10/20/2020 NEXPLANON INSERTION 05/10/2013 OSTECTOMY CALCANEUS SPUR W/WO PLNTAR FASCIAL RLS Left Dr. Jimenez REPAIR OF NASAL SEPTUM FAMILY HISTORY Problem Relation Age of Onset No Known Problems Mother Cancer Father pancreatic and renal. No Known Problems Brother No Known Problems Maternal Grandmother Diabetes Maternal Grandfather Diabetes Paternal Grandfather No Known Problems Son Breast Cancer Maternal Aunt Cervical Cancer Paternal Aunt x2- and one cousin other (lymphomia) Other maternal cousin other (leukemia) Other cousin Social History Tobacco Use Smoking status: Never Smoker Smokeless tobacco: Never Used Vaping Use Vaping Use: Never used Substance Use Topics Alcohol use: Yes Comment: Rarely Drug use: No Objective BP 132/92 Pulse 87 Temp 36.8 C (98.3 F) Resp 20 Wt 103.5 kg (228 lb 3.2 oz) LMP 02/24/2021 SpO2 99% BMI 33.70 kg/m Physical Exam Vitals reviewed. Constitutional: Appearance: Normal appearance. HENT: Head: Normocephalic and atraumatic. Right Ear: Tympanic membrane, ear canal and external ear normal. Left Ear: Ear canal and external ear normal. Ears: Comments: Clear randi on left Nose: Congestion present. Right Sinus: Maxillary sinus tenderness present. No frontal sinus tenderness. Left Sinus: No maxillary sinus tenderness or frontal sinus tenderness. Mouth/Throat: Mouth: Mucous membranes are moist. Pharynx: Oropharynx is clear. Cardiovascular: Rate and Rhythm: Normal rate and regular rhythm. Heart sounds: Normal heart sounds. Pulmonary: Effort: Pulmonary effort is normal. Breath sounds: Normal breath sounds. Musculoskeletal: Cervical back: Neck supple. Lymphadenopathy: Cervical: No cervical adenopathy. Skin: General: Skin is warm and dry. Neurological: General: No focal deficit present. Mental Status: She is alert and oriented to person, place, and time. Assessment and Plan ASSESSMENT/PLAN: 1. Sinobronchitis - ICD9: 473.9, 490, ICD10: J32.9, J40 - Will begin treatment with Augmentin 875 mg PO BID for 10 days - Supportive care with plenty of fluids, rest, and analgesia prn. - Follow up in 3-5 days if symptoms persist or worsen. - BENZONATATE 100 MG CAPSULE - ALBUTEROL SULFATE HFA 90 MCG/ACTUATION AEROSOL INHALER Maria R Marley PA-C documented in this encounterHolzer Health System04-23-2021 History of Present illness Narrative* Viola Sommer (Rt), Denny - 07/07/2020 4:20 PM EDT Radiology Service Progress Note PATIENT NAME: Candelaria Grant DATE OF SERVICE: July 07, 2020 TIME: 4:13 PM PATIENT IDENTITY VERIFICATION COMPLETED USING TWO (2) IDENTIFIERS: Name and Date of confirmedby patient verbally. FALL SCREENING: Has the patient had 2 falls in the last year or 1 fall with injury or currently using an Ambulatory Assistive Device (Walker, Cane, Wheelchair, Crutches, etc.)? No PATIENT GENDER DATA: Female. status: : No status: NO. PATIENT RELEVANT IMPLANT DATA REVIEWED: Yes RADIOLOGY DEPARTMENT: General X-ray: Exam(s) Completed: Rib X-Ray: Left PERIPHERAL IV DATA: Not applicable SIGNED BY: RT Josh July 07, 2020 4:13 PM documented in this encounterHolzer Health System12-02-2014 History of Past illness Narrative* Problem Noted Date Resolved Date Headache 02/15/2014 10/17/2015 Impaired glucose metabolism 02/15/201404/2015 documented as of this encounter (statuses as of 06/04/2021) [facility] illness Narrative* Problem Noted Date Resolved Date Headache 02/15/2014 10/17/2015 Impaired glucose metabolism 02/15/201404/2015 documented as of this encounter (statuses as of 06/06/2021) [facility] of [facility] illness Narrative* Problem Noted Date Resolved Date Headache 02/15/2014 10/17/2015 Impaired glucose metabolism 02/15/201404/2015 documented as of this encounter (statuses as of 06/08/2021) [facility] of [facility] illness Narrative* Problem Noted Date Resolved Date Headache 02/15/2014 10/17/2015 Impaired glucose metabolism 02/15/201404/2015 documented as of this encounter (statuses as of 06/25/2021) [facility] of [facility] illness Narrative* Problem Noted Date Resolved Date Headache 02/15/2014 10/17/2015 Impaired glucose metabolism 02/15/201404/2015 documented as of this encounter (statuses as of 06/26/2021) [facility] illness Narrative* Problem Noted Date Resolved Date Headache 02/15/2014 10/17/2015 Impaired glucose metabolism 02/15/201404/2015 documented as of this encounter (statuses as of 07/02/2021) [place] [id number] History of Past illness Narrative* Problem Noted Date Resolved Date Headache 02/15/2014 10/17/2015 Impaired glucose metabolism 02/15/201404/2015 documented as of this encounter (statuses as of 07/04/2021) [place] [address]-02-2014 History of Past illness Narrative* Problem Noted Date Resolved Date Headache 02/15/2014 10/17/2015 Impaired glucose metabolism 02/15/201404/2015 documented as of this encounter (statuses as of 07/25/2021) [place] [address]-02-2014 History of Past illness Narrative* Problem Noted Date Resolved Date Headache 02/15/2014 10/17/2015 Impaired glucose metabolism 02/15/201404/2015 documented as of this encounter (statuses as of 08/01/2021) [place] [address]-02-2014 History of Past illness Narrative* Problem Noted Date Resolved Date Headache 02/15/2014 10/17/2015 Impaired glucose metabolism 02/15/201404/2015 documented as of this encounter (statuses as of 08/06/2021) [place] [address]-02-2014 History of Past illness Narrative* Problem Noted Date Resolved Date Headache 02/15/2014 10/17/2015 Impaired glucose metabolism 02/15/201404/2015 documented as of this encounter (statuses as of 08/10/2021) [place] [address]-02-2014 History of Past illness Narrative* Problem Noted Date Resolved Date Headache 02/15/2014 10/17/2015 Impaired glucose metabolism 02/15/201404/2015 documented as of this encounter (statuses as of 08/29/2021) [place] [address]-02-2014 History of Past illness Narrative* Problem Noted Date Resolved Date Headache 02/15/2014 10/17/2015 Impaired glucose metabolism 02/15/201404/2015 documented as of this encounter (statuses as of 09/05/2021) [place] [address]02-2014 History of Past illness Narrative* Problem Noted Date Resolved Date Headache 02/15/2014 10/17/2015 Impaired glucose metabolism 02/15/201404/2015 documented as of this encounter (statuses as of 09/07/2021) [place] [address]02-2014 History of Past illness Narrative* Problem Noted Date Resolved Date Headache 02/15/2014 10/17/2015 Impaired glucose metabolism 02/15/201404/2015 documented as of this encounter (statuses as of 09/07/2021) [facility] History of Past illness Narrative* Problem Noted Date Resolved Date Headache 02/15/2014 10/17/2015 Impaired glucose metabolism 02/15/201404/2015 documented as of this encounter (statuses as of 09/10/2021) [facility] History of Past illness Narrative* Problem Noted Date Resolved Date Headache 02/15/2014 10/17/2015 Impaired glucose metabolism 02/15/201404/2015 documented as of this encounter (statuses as of 09/14/2021) [facility] History of Past illness Narrative* Problem Noted Date Resolved Date Headache 02/15/2014 10/17/2015 Impaired glucose metabolism 02/15/201404/2015 documented as of this encounter (statuses as of 10/05/2021) [facility] History of Past illness Narrative* Problem Noted Date Resolved Date Headache 02/15/2014 10/17/2015 Impaired glucose metabolism 02/15/201404/2015 documented as of this encounter (statuses as of 11/16/2021) [facility] History of Past illness Narrative* Problem Noted Date Resolved Date Headache 02/15/2014 10/17/2015 Impaired glucose metabolism 02/15/201404/2015 documented as of this encounter (statuses as of 11/22/2021) [facility] History of Past illness Narrative* Problem Noted Date Resolved Date Headache 02/15/2014 10/17/2015 Impaired glucose metabolism 02/15/201404/2015 documented as of this encounter (statuses as of 11/30/2021) [facility] History of Past illness Narrative* Problem Noted Date Resolved Date Headache 02/15/2014 10/17/2015 Impaired glucose metabolism 02/15/201404/2015 documented as of this encounter (statuses as of 12/05/2021) [facility] History of Past illness Narrative* Problem Noted Date Resolved Date Headache 02/15/2014 10/17/2015 Impaired glucose metabolism 02/15/201404/2015 documented as of this encounter (statuses as of 12/17/2021) [facility] History of Past illness Narrative* Problem Noted Date Resolved Date Headache 02/15/2014 10/17/2015 Impaired glucose metabolism 02/15/201404/2015 documented as of this encounter (statuses as of 01/03/2022) [facility] History of Past illness Narrative* Problem Noted Date Resolved Date Headache 02/15/2014 10/17/2015 Impaired glucose metabolism 02/15/201404/2015 documented as of this encounter (statuses as of 01/08/2022) [facility] History of Past illness Narrative* Problem Noted Date Resolved Date Headache 02/15/2014 10/17/2015 Impaired glucose metabolism 02/15/201404/2015 documented as of this encounter (statuses as of 01/09/2022) [facility] History of Past illness Narrative* Problem Noted Date Resolved Date Headache 02/15/2014 10/17/2015 Impaired glucose metabolism 02/15/201404/2015 documented as of this encounter (statuses as of 01/20/2022) [facility] History of Past illness Narrative* Problem Noted Date Resolved Date Headache 02/15/2014 10/17/2015 Impaired glucose metabolism 02/15/201404/2015 documented as of this encounter (statuses as of 02/13/2022) [facility] History of Past illness Narrative* Problem Noted Date Resolved Date Headache 02/15/2014 10/17/2015 Impaired glucose metabolism 02/15/201404/2015 documented as of this encounter (statuses as of 02/14/2022) [facility] History of Past illness Narrative* Problem Noted Date Resolved Date Headache 02/15/2014 10/17/2015 Impaired glucose metabolism 02/15/201404/2015 documented as of this encounter (statuses as of 02/19/2022) [facility] History of Past illness Narrative* Problem Noted Date Resolved Date Headache 02/15/2014 10/17/2015 Impaired glucose metabolism 02/15/201404/2015 documented as of this encounter (statuses as of 03/06/2022) [facility] History of Past illness Narrative* Problem Noted Date Resolved Date Headache 02/15/2014 10/17/2015 Impaired glucose metabolism 02/15/201404/2015 documented as of this encounter (statuses as of 03/20/2022) [facility] History of Past illness Narrative* Problem Noted Date Resolved Date Headache 02/15/2014 10/17/2015 Impaired glucose metabolism 02/15/201404/2015 documented as of this encounter (statuses as of 04/02/2022) [facility] History of Past illness Narrative* Problem Noted Date Resolved Date Headache 02/15/2014 10/17/2015 Impaired glucose metabolism 02/15/201404/2015 documented as of this encounter (statuses as of 04/02/2022) [facility] History of Past illness Narrative* Problem Noted Date Resolved Date Headache 02/15/2014 10/17/2015 Impaired glucose metabolism 02/15/201404/2015 documented as of this encounter (statuses as of 04/05/2022) [facility] History of Past illness Narrative* Problem Noted Date Resolved Date Headache 02/15/2014 10/17/2015 Impaired glucose metabolism 02/15/201404/2015 documented as of this encounter (statuses as of 04/08/2022) [facility] History of Past illness Narrative* Problem Noted Date Resolved Date Headache 02/15/2014 10/17/2015 Impaired glucose metabolism 02/15/201404/2015 documented as of this encounter (statuses as of 04/15/2022) [facility] History of Past illness Narrative* Problem Noted Date Resolved Date Headache 02/15/2014 10/17/2015 Impaired glucose metabolism 02/15/201404/2015 documented as of this encounter (statuses as of 04/17/2022) [facility] History of Past illness Narrative* Problem Noted Date Resolved Date Headache 02/15/2014 10/17/2015 Impaired glucose metabolism 02/15/201404/2015 documented as of this encounter (statuses as of 04/25/2022) [facility] History of Past illness Narrative* Problem Noted Date Resolved Date Headache 02/15/2014 10/17/2015 Impaired glucose metabolism 02/15/201404/2015 documented as of this encounter (statuses as of 05/02/2022) [facility] History of Past illness Narrative* Problem Noted Date Resolved Date Headache 02/15/2014 10/17/2015 Impaired glucose metabolism 02/15/201404/2015 documented as of this encounter (statuses as of 05/12/2022) [facility] History of Past illness Narrative* Problem Noted Date Resolved Date Headache 02/15/2014 10/17/2015 Impaired glucose metabolism 02/15/201404/2015 documented as of this encounter (statuses as of 05/16/2022) [facility] History of Past illness Narrative* Problem Noted Date Resolved Date Headache 02/15/2014 10/17/2015 Impaired glucose metabolism 02/15/201404/2015 documented as of this encounter (statuses as of 05/30/2022) [facility] History of Past illness Narrative* Problem Noted Date Resolved Date Headache 02/15/2014 10/17/2015 Impaired glucose metabolism 02/15/201404/2015 documented as of this encounter (statuses as of 06/01/2022) [facility] History of Past illness Narrative* Problem Noted Date Resolved Date Headache 02/15/2014 10/17/2015 Impaired glucose metabolism 02/15/201404/2015 documented as of this encounter (statuses as of 06/07/2022) [facility] History of Past illness Narrative* Problem Noted Date Resolved Date Headache 02/15/2014 10/17/2015 Impaired glucose metabolism 02/15/201404/2015 documented as of this encounter (statuses as of 06/12/2022) [facility] History of Past illness Narrative* Problem Noted Date Resolved Date Headache 02/15/2014 10/17/2015 Impaired glucose metabolism 02/15/201404/2015 documented as of this encounter (statuses as of 06/14/2022) [place] [address]-2014 History of Past illness Narrative* Problem Noted Date Resolved Date Headache 02/15/2014 10/17/2015 Impaired glucose metabolism 02/15/201404/2015 documented as of this encounter (statuses as of 06/21/2022) [place] [address]-2014 History of Past illness Narrative* Problem Noted Date Resolved Date Headache 02/15/2014 10/17/2015 Impaired glucose metabolism 02/15/201404/2015 documented as of this encounter (statuses as of 07/11/2022) [place] [address]2014 History of Past illness Narrative* Problem Noted Date Resolved Date Headache 02/15/2014 10/17/2015 Impaired glucose metabolism 02/15/201404/2015 documented as of this encounter (statuses as of 07/11/2022) [place] [address]2014 History of Past illness Narrative* Problem Noted Date Resolved Date Headache 02/15/2014 10/17/2015 Impaired glucose metabolism 02/15/201404/2015 documented as of this encounter (statuses as of 07/12/2022) [place] [address]2014 History of Past illness Narrative* Problem Noted Date Resolved Date Headache 02/15/2014 10/17/2015 Impaired glucose metabolism 02/15/201404/2015 documented as of this encounter (statuses as of 07/13/2022) [place] [address]2014 History of Past illness Narrative* Problem Noted Date Resolved Date Headache 02/15/2014 10/17/2015 Impaired glucose metabolism 02/15/201404/2015 documented as of this encounter (statuses as of 08/14/2022) [facility] History of Past illness Narrative* Problem Noted Date Resolved Date Headache 02/15/2014 10/17/2015 Impaired glucose metabolism 02/15/201404/2015 documented as of this encounter (statuses as of 08/15/2022) [facility] History of Past illness Narrative* Problem Noted Date Resolved Date Headache 02/15/2014 10/17/2015 Impaired glucose metabolism 02/15/201404/2015 documented as of this encounter (statuses as of 09/09/2022) [place] [address]2014 History of Past illness Narrative* Problem Noted Date Resolved Date Headache 02/15/2014 10/17/2015 Impaired glucose metabolism 02/15/201404/2015 documented as of this encounter (statuses as of 09/12/2022) [facility] History of Past illness Narrative* Problem Noted Date Resolved Date Headache 02/15/2014 10/17/2015 Impaired glucose metabolism 02/15/201404/2015 documented as of this encounter (statuses as of 09/13/2022) [facility] History of Past illness Narrative* Problem Noted Date Resolved Date Headache 02/15/2014 10/17/2015 Impaired glucose metabolism 02/15/201404/2015 documented as of this encounter (statuses as of 09/20/2022) [facility] History of Past illness Narrative* Problem Noted Date Diagnosed Date Resolved Date Headache 02/15/2014 10/17/2015 Impaired glucose metabolism 02/15/2014 10/17/2015 documented as of this encounter (statuses as of 10/12/2022) [facility] History of Past illness Narrative* Problem Noted Date Diagnosed Date Resolved Date Headache 02/15/2014 10/17/2015 Impaired glucose metabolism 02/15/2014 10/17/2015 documented as of this encounter (statuses as of 10/23/2022) [facility] History of Past illness Narrative* Problem Noted Date Diagnosed Date Resolved Date Headache 02/15/2014 10/17/2015 Impaired glucose metabolism 02/15/2014 10/17/2015 documented as of this encounter (statuses as of 12/25/2022) [facility] History of Past illness Narrative* Problem Noted Date Diagnosed Date Resolved Date Headache 02/15/2014 10/17/2015 Impaired glucose metabolism 02/15/2014 10/17/2015 documented as of this encounter (statuses as of 12/27/2022) [facility] History of Past illness Narrative* Problem Noted Date Diagnosed Date Resolved Date Headache 02/15/2014 10/17/2015 Impaired glucose metabolism 02/15/2014 10/17/2015 documented as of this encounter (statuses as of 12/28/2022) [place] [address]2014 History of Past illness Narrative* Problem Noted Date Diagnosed Date Resolved Date Headache 02/15/2014 10/17/2015 Impaired glucose metabolism 02/15/2014 10/17/2015 documented as of this encounter (statuses as of 01/01/2023) [facility] History of Past illness Narrative* Problem Noted Date Diagnosed Date Resolved Date Headache 02/15/2014 10/17/2015 Impaired glucose metabolism 02/15/2014 10/17/2015 documented as of this encounter (statuses as of 01/16/2023) [facility] History of Past illness Narrative* Problem Noted Date Diagnosed Date Resolved Date Headache 02/15/2014 10/17/2015 Impaired glucose metabolism 02/15/2014 10/17/2015 documented as of this encounter (statuses as of 01/20/2023) [facility] History of Past illness Narrative* Problem Noted Date Diagnosed Date Resolved Date Headache 02/15/2014 10/17/2015 Impaired glucose metabolism 02/15/2014 10/17/2015 documented as of this encounter (statuses as of 02/03/2023) [facility] History of Past illness Narrative* Problem Noted Date Diagnosed Date Resolved Date Headache 02/15/2014 10/17/2015 Impaired glucose metabolism 02/15/2014 10/17/2015 documented as of this encounter (statuses as of 02/03/2023) [facility] History of Past illness Narrative* Problem Noted Date Diagnosed Date Resolved Date Headache 02/15/2014 10/17/2015 Impaired glucose metabolism 02/15/2014 10/17/2015 documented as of this encounter (statuses as of 02/03/2023) [facility] History of Past illness Narrative* Problem Noted Date Diagnosed Date Resolved Date Headache 02/15/2014 10/17/2015 Impaired glucose metabolism 02/15/2014 10/17/2015 documented as of this encounter (statuses as of 02/15/2023) [facility] History of Past illness Narrative* Problem Noted Date Diagnosed Date Resolved Date Headache 02/15/2014 10/17/2015 Impaired glucose metabolism 02/15/2014 10/17/2015 documented as of this encounter (statuses as of 02/17/2023) [facility] History of Past illness Narrative* Problem Noted Date Diagnosed Date Resolved Date Headache 02/15/2014 10/17/2015 Impaired glucose metabolism 02/15/2014 10/17/2015 documented as of this encounter (statuses as of 04/25/2023) [facility] History of Past illness Narrative* Problem Noted Date Diagnosed Date Resolved Date Headache 02/15/2014 10/17/2015 Impaired glucose metabolism 02/15/2014 10/17/2015 documented as of this encounter (statuses as of 04/25/2023) [facility] History of Past illness Narrative* Problem Noted Date Diagnosed Date Resolved Date Headache 02/15/2014 10/17/2015 Impaired glucose metabolism 02/15/2014 10/17/2015 documented as of this encounter (statuses as of 04/28/2023) [facility] History of Past illness Narrative* Problem Noted Date Diagnosed Date Resolved Date Headache 02/15/2014 10/17/2015 Impaired glucose metabolism 02/15/2014 10/17/2015 documented as of this encounter (statuses as of 05/02/2023) [facility] History of Past illness Narrative* Problem Noted Date Diagnosed Date Resolved Date Headache 02/15/2014 10/17/2015 Impaired glucose metabolism 02/15/2014 10/17/2015 documented as of this encounter (statuses as of 05/19/2023) [facility] History of Past illness Narrative* Problem Noted Date Diagnosed Date Resolved Date Headache 02/15/2014 10/17/2015 Impaired glucose metabolism 02/15/2014 10/17/2015 documented as of this encounter (statuses as of 05/21/2023) [facility] History of Past illness Narrative* Problem Noted Date Diagnosed Date Resolved Date Headache 02/15/2014 10/17/2015 Impaired glucose metabolism 02/15/2014 10/17/2015 documented as of this encounter (statuses as of 05/21/2023) [facility] History of Past illness Narrative* Problem Noted Date Diagnosed Date Resolved Date Headache 02/15/2014 10/17/2015 Impaired glucose metabolism 02/15/2014 10/17/2015 documented as of this encounter (statuses as of 05/22/2023) [facility] History of Past illness Narrative* Problem Noted Date Diagnosed Date Resolved Date Headache 02/15/2014 10/17/2015 Impaired glucose metabolism 02/15/2014 10/17/2015 documented as of this encounter (statuses as of 05/23/2023) [facility] History of Past illness Narrative* Problem Noted Date Diagnosed Date Resolved Date Headache 02/15/2014 10/17/2015 Impaired glucose metabolism 02/15/2014 10/17/2015 documented as of this encounter (statuses as of 06/04/2023) [facility] History of Past illness Narrative* Problem Noted Date Diagnosed Date Resolved Date Headache 02/15/2014 10/17/2015 Impaired glucose metabolism 02/15/2014 10/17/2015 documented as of this encounter (statuses as of 06/04/2023) [facility] History of Past illness Narrative* Problem Noted Date Diagnosed Date Resolved Date Headache 02/15/2014 10/17/2015 Impaired glucose metabolism 02/15/2014 10/17/2015 documented as of this encounter (statuses as of 06/05/2023) [facility] History of Past illness Narrative* Problem Noted Date Diagnosed Date Resolved Date Headache 02/15/2014 10/17/2015 Impaired glucose metabolism 02/15/2014 10/17/2015 documented as of this encounter (statuses as of 06/17/2023) [facility] History of Past illness Narrative* Problem Noted Date Diagnosed Date Resolved Date Headache 02/15/2014 10/17/2015 Impaired glucose metabolism 02/15/2014 10/17/2015 documented as of this encounter (statuses as of 06/17/2023) [facility] History of Past illness Narrative* Problem Noted Date Diagnosed Date Resolved Date Headache 02/15/2014 10/17/2015 Impaired glucose metabolism 02/15/2014 10/17/2015 documented as of this encounter (statuses as of 06/26/2023) [facility] History of Past illness Narrative* Problem Noted Date Diagnosed Date Resolved Date Headache 02/15/2014 10/17/2015 Impaired glucose metabolism 02/15/2014 10/17/2015 documented as of this encounter (statuses as of 06/26/2023) [facility] History of Past illness Narrative* Problem Noted Date Diagnosed Date Resolved Date Headache 02/15/2014 10/17/2015 Impaired glucose metabolism 02/15/2014 10/17/2015 documented as of this encounter (statuses as of 06/27/2023) [facility] History of Past illness Narrative* Problem Noted Date Diagnosed Date Resolved Date Headache 02/15/2014 10/17/2015 Impaired glucose metabolism 02/15/2014 10/17/2015 documented as of this encounter (statuses as of 07/02/2023) [facility] History of Past illness Narrative* Problem Noted Date Diagnosed Date Resolved Date Headache 02/15/2014 10/17/2015 Impaired glucose metabolism 02/15/2014 10/17/2015 documented as of this encounter (statuses as of 07/03/2023) [facility] No data available for this section [facility] Evaluation + Plan note Future Appointments [facility] Evrcxation note* Diagnosis Sinobronchitis- Primary Unspecified sinusitis (chronic) [facility] noteNo assessment information availableWSt. [facility] Work Phone: Evalucawpe note* Diagnosis Screen for STD (sexually transmitted disease)- Primary Screening examination for venereal disease Vaginal irritation Unspecified noninflammatory disorder of vagina [facility] Diagnosis Cough- Primary [facility]* Diagnosis Cough- Primary Shortness of breath History of DVT (deep vein thrombosis) Personal history of venous thrombosis and embolism Chest pain on breathing Painful respiration Right otitis media, unspecified otitis media type [facility] Type 2 diabetes mellitus without complication, without long-term current use of insulin (HCC) [facility]* Diagnosis Diarrhea, unspecified type- Primary Abdominal pain, unspecified abdominal location Body aches Generalized pain Vaginal irritation Unspecified noninflammatory disorder of vagina Uncontrolled type 2 diabetes mellitus with hyperglycemia (HCC) [facility]* Diagnosis Acute swimmer's ear of both sides [facility]* Diagnosis Obesity (BMI 30-39.9)- Primary Obesity, unspecified Type 2 diabetes mellitus without complication, unspecified whether half-way insulin use (HCC) Dizziness Dizziness and giddiness Functional diarrhea Allergic reaction, subsequent encounter Acute swimmer's ear of both sides [facility] Upper back pain- Primary Uncontrolled type 2 diabetes mellitus with hyperglycemia (HCC) External hemorrhoid External hemorrhoids without mention of complication TMJ dysfunction Temporomandibular joint disorders, unspecified [facility] Acute swimmer's ear of both sides [facility] Diagnosis Type 2 diabetes mellitus without complication, unspecified whether half-way insulin use (HCC)- Primary Obesity (BMI 30-39.9) Obesity, unspecified [facility]* Diagnosis Dizziness- Primary Dizziness and giddiness Encounter for other general counseling or advice on contraception [facility] Diagnosis Acute pain of right shoulder- Primary Dizziness Dizziness and giddiness Uncontrolled type 2 diabetes mellitus with hyperglycemia (HCC) Abnormal menstrual cycle Unspecified disorder of menstruation and other abnormal bleeding from female genital tract [facility] Diagnosis Obesity (BMI 30-39.9)- Primary Obesity, unspecified Type 2 diabetes mellitus without complication, unspecified whether long term acute care registered nurse insulin use (HCC) Foot pain, right Pain in limb [facility] Injury of right wrist, subsequent encounter- Primary Right wrist pain Pain in joint, forearm Acute otitis externa of right ear, unspecified type [facility] Diagnosis 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 Right wrist pain Pain in joint, forearm Injury of right wrist, subsequent encounter [facility] Diagnosis Uncontrolled type 2 diabetes mellitus with hyperglycemia (HCC)- Primary Right wrist pain Pain in joint, forearm Obesity (BMI 30-39.9) Obesity, unspecified Vaginal yeast infection Candidiasis of vulva and vagina [facility] Diagnosis Type 2 diabetes mellitus without complication, unspecified whether half-way insulin use (HCC) [facility] Diagnosis Vaginal yeast infection Candidiasis of vulva and vagina [facility]* Diagnosis At increased risk of exposure to COVID-19 virus- Primary Acute cough Rhinosinusitis Unspecified sinusitis (chronic) [facility]* Diagnosis Uncontrolled type 2 diabetes mellitus with hyperglycemia (HCC)- Primary Obesity (BMI 30-39.9) Obesity, unspecified Hyperlipidemia LDL goal <100 Other and unspecified hyperlipidemia Wellness examination [facility]* Diagnosis Pain and swelling of left lower leg- Primary Hx of foot surgery Personal history of surgery to other organs [facility]* Diagnosis Uncontrolled type 2 diabetes mellitus with hyperglycemia (HCC)- Primary Acute otitis externa of right ear, unspecified type [facility]* Diagnosis Pelvic pain in female- Primary Unspecified symptom associated with female genital organs Cervical cancer screening Screening for malignant neoplasm of the cervix [facility]* Diagnosis Abnormal uterine bleeding- Primary Unspecified disorder of menstruation and other abnormal bleeding from female genital tract Lower abdominal pain Abdominal pain, other specified site [facility] Diagnosis Uncontrolled type 2 diabetes mellitus with hyperglycemia (HCC) [facility] Diagnosis Vaginal yeast infection- Primary Candidiasis of vulva and vagina [facility]* Diagnosis Uncontrolled type 2 diabetes mellitus with hyperglycemia (HCC) [facility] Diagnosis Foot pain, left- Primary Pain in limb [facility]* Diagnosis Vaginal yeast infection- Primary Candidiasis of vulva and vagina Elevated glucose Other abnormal glucose [facility]* Diagnosis Uncontrolled type 2 diabetes mellitus with hyperglycemia (HCC)- Primary Elevated BP without diagnosis of hypertension [facility] Diagnosis Uncontrolled type 2 diabetes mellitus with hyperglycemia (HCC)- Primary Elevated BP without diagnosis of hypertension Obesity (BMI 30-39.9) Obesity, unspecified [facility] Diagnosis Flu-like symptoms- Primary Other general symptoms Dark urine Other nonspecific finding on examination of urine [facility] Diagnosis Acute non-recurrent sinusitis, unspecified location- Primary [facility]* Diagnosis Urinary frequency- Primary [facility]* Diagnosis Uncontrolled type 2 diabetes mellitus with hyperglycemia (HCC)- Primary Obesity (BMI 30-39.9) Obesity, unspecified Allergic dermatitis eyelid, left [facility] Diagnosis Acute swimmer's ear of both sides [facility]* Diagnosis Obesity (BMI 30-39.9) Obesity, unspecified [facility]* Diagnosis Obesity (BMI 30-39.9) Obesity, unspecified [facility]* Diagnosis Obesity (BMI 30-39.9) Obesity, unspecified [facility]* Diagnosis Functional diarrhea [facility] Diagnosis Uncontrolled type 2 diabetes mellitus with hyperglycemia (HCC) [facility]* Diagnosis Diarrhea, unspecified type- Primary [place] Acute pain of right shoulder [facility]* Diagnosis Pain of right lower extremity- Primary [facility]* Diagnosis Obesity (BMI 30-39.9) Obesity, unspecified Uncontrolled type 2 diabetes mellitus with hyperglycemia (HCC) Hyperlipidemia LDL goal <100 Other and unspecified hyperlipidemia [facility]* Diagnosis Muscle pain- Primary Mylagia and myositis, unspecified [facility]* Diagnosis Strain of neck muscle, initial encounter- Primary Bacterial sinusitis Unspecified sinusitis (chronic) Dizziness Dizziness and giddiness Elevated BP without diagnosis of hypertension [facility]* Diagnosis Pelvic pain in female Unspecified symptom associated with female genital organs [facility]* Diagnosis Uncontrolled type 2 diabetes mellitus with hyperglycemia (HCC) [facility]* Diagnosis Obesity (BMI 30-39.9) Obesity, unspecified Uncontrolled type 2 diabetes mellitus with hyperglycemia (HCC) Hyperlipidemia LDL goal <100 Other and unspecified hyperlipidemia [facility]* Diagnosis Obesity (BMI 30-39.9) Obesity, unspecified Uncontrolled type 2 diabetes mellitus with hyperglycemia (HCC) Hyperlipidemia LDL goal <100 Other and unspecified hyperlipidemia [facility]* Diagnosis Major depressive disorder with current active episode, unspecified depression episode severity, unspecified whether recurrent- Primary Uncontrolled type 2 diabetes mellitus with hyperglycemia (HCC) Hyperlipidemia LDL goal <100 Other and unspecified hyperlipidemia documented in this encounter [facility] note* Diagnosis Anterior knee pain, left- Primary Acute pain of left knee documented in this encounter [facility] note* Diagnosis Anxiety and depression- Primary Dysthymic disorder Uncontrolled type 2 diabetes mellitus with hyperglycemia (HCC) Wellness examination documented in this encounter [facility] note* Diagnosis Vaginal yeast infection- Primary Candidiasis of vulva and vagina [facility] this [facility]* Diagnosis Acute pain of left knee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 Referred To Contact MR IMAGING Diagnoses Right wrist pain Procedures MRI WRIST WO IVCON RT MRI ANY JT UPPER EXTREMITY W/O CONTRAST MATRL Marizol Centeno, DO [address] [place] [address] Mr Imaging Referral ID Status Reason Start Date Expiration Date Visits Requested Visits Authorized [id number] Additional Clinical Info Needed Auto-Generat ed Referral 11/22/2021 12/22/2022 1 1 Specialty Diagnoses / Procedures Referred By Contac t Referred To Contact Orthopedics Diagnoses Right wrist pain Injury of right wrist, subsequent encounter Procedures CONSULT TO ORTHOPAEDICS OFFICE/OUTPATIENT NEW HIGH MDM 60-74 MINUTES Ilaan Herrera, MUCK BOSS.GUM COOK [address] [place] [address] Referral ID Status Reason Start Date Expiration Date Visits Requested Visits Authorized [id number] Authorized PCP Requested Referral 11/16/2021 11/16/2022 1 1 Specialty Diagnoses / Procedures Referred By Contac t Referred To Contact XR IMAGING Diagnoses Right wrist pain Injury of right wrist, subsequent encounter Procedures XR FOREARM GENERAL 2V AP/LAT RIGHT RADEX FOREARM 2 VIEWS Ilana Herrera, MUCK BOSS.GUM COOK [address] [place] [address] Xr Imaging Referral ID Status Reason Start Date Expiration Date V isits Requested Visits Authorized [id number] Closed Auto-Generate d Referral 11/16/2021 12/16/2022 1 1 Specialty Diagnoses / Procedures Referred By Contac t Referred To Contact XR IMAGING Diagnoses Right wrist pain Injury of right wrist, subsequent encounter Procedures XR WRIST GENERAL 3V PA/LAT/OBL RIGHT RADEX WRIST COMPLETE MINIMUM 3 VIEWS Ilana Herrera, MUCK BOSS.GUM COOK [address] [place] [address] Xr Imaging Referral ID Status Reason Start Date Expiration Date V isits Requested Visits Authorized [id number] Closed Auto-Generate d Referral 11/16/2021 12/16/2022 1 1 Specialty Diagnoses / Procedures Referred By Contac t Referred To Contact Diagnoses Uncontrolled type 2 diabetes mellitus with hyperglycemia (HCC) Polly Quintero, MUCK BOSS.GUM COOK [address] [place] [address] Referral ID Status Reason Start Date Expiration Date Visits Re quested Visits Authorized [id number] Closed 1 1 Referral ID Status Reason Start Date Expiration Date Visits Re quested Visits Authorized [id number] Closed 1 1 Specialty Diagnoses / Procedures Referred By Contac t Referred To Contact XR IMAGING Diagnoses Upper back pain Procedures XR THORACIC LIMITED 2V AP/LAT RADEX SPINE THORACIC 2 VIEWS Polly Quintero, MUCK BOSS.GUM COOK [address] [place] [address] Xr Imaging Referral ID Status Reason Start Date Expiration Date Visits Requested Visits Authorized [id number] Pending Review Auto-Generat ed Referral 08/29/2021 09/28/2022 1 1 Specialty Diagnoses / Procedures Referred By Contac t Referred To Contact Diagnoses Allergic reaction, subsequent encounter Ilana Herrera, MUCK BOSS.GUM COOK [address] [place] [address] Referral ID Status Reason Start Date Expiration Date Visits Re quested Visits Authorized [id number] Closed 1 1 Summary Purpose Additional Source Comments Source Comments (unrecognize d section and content) In the event this informatio n is protected by the Federal Confidentiality of Alcohol and Drug Abuse Patient Records regulations: The Federal rules restrict any use of the information to criminally investigate or prosecute any alcohol or drug abuse patient.[facility] the event this information is protected by the Federal Confidentiality of Alcohol and Drug Abuse Patient Records regulations: The Federal rules restrict any use of the information to criminally investigate or prosecute any alcohol or drug abuse patient.[facility] SystemIn the event this information is protected by the Federal Confidentiality of Alcohol and Drug Abuse Patient Records regulations: The Federal rules restrict any use of the information to criminally investigate or prosecute any alcohol or drug abuse patient.[facility] System[facility] the event this information is protected by the Federal Confidentiality of Alcohol and Drug Abuse Patient Records regulations: The Federal rules restrict any use of the information to criminally investigate or prosecute any alcohol or drug abuse patient.[facility] System[facility] the event this information is protected by the Federal Confidentiality of Alcohol and Drug Abuse Patient Records regulations: The Federal rules restrict any use of the information to criminally investigate or prosecute any alcohol or drug abuse patient.[facility] System[facility] the event this information is protected by the Federal Confidentiality of Alcohol and Drug Abuse Patient Records regulations: The Federal rules restrict any use of the information to criminally investigate or prosecute any alcohol or drug abuse patient.[facility] System[facility] the event this information is protected by the Federal Confidentiality of Alcohol and Drug Abuse Patient Records regulations: The Federal rules restrict any use of the information to criminally investigate or prosecute any alcohol or drug abuse patient.[facility] SystemIn the event this information is protected by the Federal Confidentiality of Alcohol and Drug Abuse Patient Records regulations: The Federal rules restrict any use of the information to criminally investigate or prosecute any alcohol or drug abuse patient.[facility] System[facility] the event this information is protected by the Federal Confidentiality of Alcohol and Drug Abuse Patient Records regulations: The Federal rules restrict any use of the information to criminally investigate or prosecute any alcohol or drug abuse patient.[facility] System[facility] the event this information is protected by the Federal Confidentiality of Alcohol and Drug Abuse Patient Records regulations: The Federal rules restrict any use of the information to criminally investigate or prosecute any alcohol or drug abuse patient.[facility] SystemIn the event this information is protected by the Federal Confidentiality of Alcohol and Drug Abuse Patient Records regulations: The Federal rules restrict any use of the information to criminally investigate or prosecute any alcohol or drug abuse patient.[facility] SystemIn the event this information is protected by the Federal Confidentiality of Alcohol and Drug Abuse Patient Records regulations: The Federal rules restrict any use of the information to criminally investigate or prosecute any alcohol or drug abuse patient.[facility] SystemIn the event this information is protected by the Federal Confidentiality of Alcohol and Drug Abuse Patient Records regulations: The Federal rules restrict any use of the information to criminally investigate or prosecute any alcohol or drug abuse patient.[facility] SystemIn the event this information is protected by the Federal Confidentiality of Alcohol and Drug Abuse Patient Records regulations: The Federal rules restrict any use of the information to criminally investigate or prosecute any alcohol or drug abuse patient.[facility] SystemIn the event this information is protected by the Federal Confidentiality of Alcohol and Drug Abuse Patient Records regulations: The Federal rules restrict any use of the information to criminally investigate or prosecute any alcohol or drug abuse patient.[facility] SystemIn the event this information is protected by the Federal Confidentiality of Alcohol and Drug Abuse Patient Records regulations: The Federal rules restrict any use of the information to criminally investigate or prosecute any alcohol or drug abuse patient.[facility] SystemIn the event this information is protected by the Federal Confidentiality of Alcohol and Drug Abuse Patient Records regulations: The Federal rules restrict any use of the information to criminally investigate or prosecute any alcohol or drug abuse patient.[facility] SystemIn the event this information is protected by the Federal Confidentiality of Alcohol and Drug Abuse Patient Records regulations: The Federal rules restrict any use of the information to criminally investigate or prosecute any alcohol or drug abuse patient.[facility] SystemIn the event this information is protected by the Federal Confidentiality of Alcohol and Drug Abuse Patient Records regulations: The Federal rules restrict any use of the information to criminally investigate or prosecute any alcohol or drug abuse patient.[facility] SystemIn the event this information is protected by the Federal Confidentiality of Alcohol and Drug Abuse Patient Records regulations: The Federal rules restrict any use of the information to criminally investigate or prosecute any alcohol or drug abuse patient.[facility] SystemIn the event this information is protected by the Federal Confidentiality of Alcohol and Drug Abuse Patient Records regulations: The Federal rules restrict any use of the information to criminally investigate or prosecute any alcohol or drug abuse patient.[facility] SystemIn the event this information is protected by the Federal Confidentiality of Alcohol and Drug Abuse Patient Records regulations: The Federal rules restrict any use of the information to criminally investigate or prosecute any alcohol or drug abuse patient.[facility] SystemIn the event this information is protected by the Federal Confidentiality of Alcohol and Drug Abuse Patient Records regulations: The Federal rules restrict any use of the information to criminally investigate or prosecute any alcohol or drug abuse patient.[facility] SystemIn the event this information is protected by the Federal Confidentiality of Alcohol and Drug Abuse Patient Records regulations: The Federal rules restrict any use of the information to criminally investigate or prosecute any alcohol or drug abuse patient.[facility] SystemIn the event this information is protected by the Federal Confidentiality of Alcohol and Drug Abuse Patient Records regulations: The Federal rules restrict any use of the information to criminally investigate or prosecute any alcohol or drug abuse patient.[facility] SystemIn the event this information is protected by the Federal Confidentiality of Alcohol and Drug Abuse Patient Records regulations: The Federal rules restrict any use of the information to criminally investigate or prosecute any alcohol or drug abuse patient.[facility] SystemIn the event this information is protected by the Federal Confidentiality of Alcohol and Drug Abuse Patient Records regulations: The Federal rules restrict any use of the information to criminally investigate or prosecute any alcohol or drug abuse patient.[facility] SystemIn the event this information is protected by the Federal Confidentiality of Alcohol and Drug Abuse Patient Records regulations: The Federal rules restrict any use of the information to criminally investigate or prosecute any alcohol or drug abuse patient.[facility] SystemIn the event this information is protected by the Federal Confidentiality of Alcohol and Drug Abuse Patient Records regulations: The Federal rules restrict any use of the information to criminally investigate or prosecute any alcohol or drug abuse patient.[facility] SystemIn the event this information is protected by the Federal Confidentiality of Alcohol and Drug Abuse Patient Records regulations: The Federal rules restrict any use of the information to criminally investigate or prosecute any alcohol or drug abuse patient.[facility] SystemIn the event this information is protected by the Federal Confidentiality of Alcohol and Drug Abuse Patient Records regulations: The Federal rules restrict any use of the information to criminally investigate or prosecute any alcohol or drug abuse patient.[facility] SystemIn the event this information is protected by the Federal Confidentiality of Alcohol and Drug Abuse Patient Records regulations: The Federal rules restrict any use of the information to criminally investigate or prosecute any alcohol or drug abuse patient.[facility] SystemIn the event this information is protected by the Federal Confidentiality of Alcohol and Drug Abuse Patient Records regulations: The Federal rules restrict any use of the information to criminally investigate or prosecute any alcohol or drug abuse patient.[facility] SystemIn the event this information is protected by the Federal Confidentiality of Alcohol and Drug Abuse Patient Records regulations: The Federal rules restrict any use of the information to criminally investigate or prosecute any alcohol or drug abuse patient.[facility] SystemIn the event this information is protected by the Federal Confidentiality of Alcohol and Drug Abuse Patient Records regulations: The Federal rules restrict any use of the information to criminally investigate or prosecute any alcohol or drug abuse patient.[facility] SystemIn the event this information is protected by the Federal Confidentiality of Alcohol and Drug Abuse Patient Records regulations: The Federal rules restrict any use of the information to criminally investigate or prosecute any alcohol or drug abuse patient.[facility] SystemIn the event this information is protected by the Federal Confidentiality of Alcohol and Drug Abuse Patient Records regulations: The Federal rules restrict any use of the information to criminally investigate or prosecute any alcohol or drug abuse patient.[facility] SystemIn the event this information is protected by the Federal Confidentiality of Alcohol and Drug Abuse Patient Records regulations: The Federal rules restrict any use of the information to criminally investigate or prosecute any alcohol or drug abuse patient.[facility] SystemIn the event this information is protected by the Federal Confidentiality of Alcohol and Drug Abuse Patient Records regulations: The Federal rules restrict any use of the information to criminally investigate or prosecute any alcohol or drug abuse patient.[facility] SystemIn the event this information is protected by the Federal Confidentiality of Alcohol and Drug Abuse Patient Records regulations: The Federal rules restrict any use of the information to criminally investigate or prosecute any alcohol or drug abuse patient.[facility] SystemIn the event this information is protected by the Federal Confidentiality of Alcohol and Drug Abuse Patient Records regulations: The Federal rules restrict any use of the information to criminally investigate or prosecute any alcohol or drug abuse patient.[facility] the event this information is protected by the Federal Confidentiality of Alcohol and Drug Abuse Patient Records regulations: The Federal rules restrict any use of the information to criminally investigate or prosecute any alcohol or drug abuse patient.[facility] SystemIn the event this information is protected by the Federal Confidentiality of Alcohol and Drug Abuse Patient Records regulations: The Federal rules restrict any use of the information to criminally investigate or prosecute any alcohol or drug abuse patient.[facility] SystemIn the event this information is protected by the Federal Confidentiality of Alcohol and Drug Abuse Patient Records regulations: The Federal rules restrict any use of the information to criminally investigate or prosecute any alcohol or drug abuse patient.[facility] SystemIn the event this information is protected by the Federal Confidentiality of Alcohol and Drug Abuse Patient Records regulations: The Federal rules restrict any use of the information to criminally investigate or prosecute any alcohol or drug abuse patient.[facility] SystemIn the event this information is protected by the Federal Confidentiality of Alcohol and Drug Abuse Patient Records regulations: The Federal rules restrict any use of the information to criminally investigate or prosecute any alcohol or drug abuse patient.[facility] SystemIn the event this information is protected by the Federal Confidentiality of Alcohol and Drug Abuse Patient Records regulations: The Federal rules restrict any use of the information to criminally investigate or prosecute any alcohol or drug abuse patient.[facility] SystemIn the event this information is protected by the Federal Confidentiality of Alcohol and Drug Abuse Patient Records regulations: The Federal rules restrict any use of the information to criminally investigate or prosecute any alcohol or drug abuse patient.[facility] SystemIn the event this information is protected by the Federal Confidentiality of Alcohol and Drug Abuse Patient Records regulations: The Federal rules restrict any use of the information to criminally investigate or prosecute any alcohol or drug abuse patient.[facility] SystemIn the event this information is protected by the Federal Confidentiality of Alcohol and Drug Abuse Patient Records regulations: The Federal rules restrict any use of the information to criminally investigate or prosecute any alcohol or drug abuse patient.[facility] SystemIn the event this information is protected by the Federal Confidentiality of Alcohol and Drug Abuse Patient Records regulations: The Federal rules restrict any use of the information to criminally investigate or prosecute any alcohol or drug abuse patient.[facility] SystemIn the event this information is protected by the Federal Confidentiality of Alcohol and Drug Abuse Patient Records regulations: The Federal rules restrict any use of the information to criminally investigate or prosecute any alcohol or drug abuse patient.[facility] SystemIn the event this information is protected by the Federal Confidentiality of Alcohol and Drug Abuse Patient Records regulations: The Federal rules restrict any use of the information to criminally investigate or prosecute any alcohol or drug abuse patient.[facility] SystemIn the event this information is protected by the Federal Confidentiality of Alcohol and Drug Abuse Patient Records regulations: The Federal rules restrict any use of the information to criminally investigate or prosecute any alcohol or drug abuse patient.[facility] SystemIn the event this information is protected by the Federal Confidentiality of Alcohol and Drug Abuse Patient Records regulations: The Federal rules restrict any use of the information to criminally investigate or prosecute any alcohol or drug abuse patient.[facility] SystemIn the event this information is protected by the Federal Confidentiality of Alcohol and Drug Abuse Patient Records regulations: The Federal rules restrict any use of the information to criminally investigate or prosecute any alcohol or drug abuse patient.[facility] SystemIn the event this information is protected by the Federal Confidentiality of Alcohol and Drug Abuse Patient Records regulations: The Federal rules restrict any use of the information to criminally investigate or prosecute any alcohol or drug abuse patient.[facility] SystemIn the event this information is protected by the Federal Confidentiality of Alcohol and Drug Abuse Patient Records regulations: The Federal rules restrict any use of the information to criminally investigate or prosecute any alcohol or drug abuse patient.[facility] SystemIn the event this information is protected by the Federal Confidentiality of Alcohol and Drug Abuse Patient Records regulations: The Federal rules restrict any use of the information to criminally investigate or prosecute any alcohol or drug abuse patient.[facility] SystemIn the event this information is protected by the Federal Confidentiality of Alcohol and Drug Abuse Patient Records regulations: The Federal rules restrict any use of the information to criminally investigate or prosecute any alcohol or drug abuse patient.[facility] SystemIn the event this information is protected by the Federal Confidentiality of Alcohol and Drug Abuse Patient Records regulations: The Federal rules restrict any use of the information to criminally investigate or prosecute any alcohol or drug abuse patient.[facility] SystemIn the event this information is protected by the Federal Confidentiality of Alcohol and Drug Abuse Patient Records regulations: The Federal rules restrict any use of the information to criminally investigate or prosecute any alcohol or drug abuse patient.[facility] SystemIn the event this information is protected by the Federal Confidentiality of Alcohol and Drug Abuse Patient Records regulations: The Federal rules restrict any use of the information to criminally investigate or prosecute any alcohol or drug abuse patient.[facility]In the event this information is protected by the Federal Confidentiality of Alcohol and Drug Abuse Patient Records regulations: The Federal rules restrict any use of the information to criminally investigate or prosecute any alcohol or drug abuse patient.[facility] SystemIn the event this information is protected by the Federal Confidentiality of Alcohol and Drug Abuse Patient Records regulations: The Federal rules restrict any use of the information to criminally investigate or prosecute any alcohol or drug abuse patient.[facility] SystemIn the event this information is protected by the Federal Confidentiality of Alcohol and Drug Abuse Patient Records regulations: The Federal rules restrict any use of the information to criminally investigate or prosecute any alcohol or drug abuse patient.[facility]In the event this information is protected by the Federal Confidentiality of Alcohol and Drug Abuse Patient Records regulations: The Federal rules restrict any use of the information to criminally investigate or prosecute any alcohol or drug abuse patient.[facility] SystemIn the event this information is protected by the Federal Confidentiality of Alcohol and Drug Abuse Patient Records regulations: The Federal rules restrict any use of the information to criminally investigate or prosecute any alcohol or drug abuse patient.[facility] SystemIn the event this information is protected by the Federal Confidentiality of Alcohol and Drug Abuse Patient Records regulations: The Federal rules restrict any use of the information to criminally investigate or prosecute any alcohol or drug abuse patient.[facility] SystemIn the event this information is protected by the Federal Confidentiality of Alcohol and Drug Abuse Patient Records regulations: The Federal rules restrict any use of the information to criminally investigate or prosecute any alcohol or drug abuse patient.[facility] SystemIn the event this information is protected by the Federal Confidentiality of Alcohol and Drug Abuse Patient Records regulations: The Federal rules restrict any use of the information to criminally investigate or prosecute any alcohol or drug abuse patient.[facility] SystemIn the event this information is protected by the Federal Confidentiality of Alcohol and Drug Abuse Patient Records regulations: The Federal rules restrict any use of the information to criminally investigate or prosecute any alcohol or drug abuse patient.[facility] SystemIn the event this information is protected by the Federal Confidentiality of Alcohol and Drug Abuse Patient Records regulations: The Federal rules restrict any use of the information to criminally investigate or prosecute any alcohol or drug abuse patient.[facility] SystemIn the event this information is protected by the Federal Confidentiality of Alcohol and Drug Abuse Patient Records regulations: The Federal rules restrict any use of the information to criminally investigate or prosecute any alcohol or drug abuse patient.[facility] SystemIn the event this information is protected by the Federal Confidentiality of Alcohol and Drug Abuse Patient Records regulations: The Federal rules restrict any use of the information to criminally investigate or prosecute any alcohol or drug abuse patient.[facility]In the event this information is protected by the Federal Confidentiality of Alcohol and Drug Abuse Patient Records regulations: The Federal rules restrict any use of the information to criminally investigate or prosecute any alcohol or drug abuse patient.[facility] SystemIn the event this information is protected by the Federal Confidentiality of Alcohol and Drug Abuse Patient Records regulations: The Federal rules restrict any use of the information to criminally investigate or prosecute any alcohol or drug abuse patient.[facility] SystemIn the event this information is protected by the Federal Confidentiality of Alcohol and Drug Abuse Patient Records regulations: The Federal rules restrict any use of the information to criminally investigate or prosecute any alcohol or drug abuse patient.[facility] SystemIn the event this information is protected by the Federal Confidentiality of Alcohol and Drug Abuse Patient Records regulations: The Federal rules restrict any use of the information to criminally investigate or prosecute any alcohol or drug abuse patient.[facility] SystemIn the event this information is protected by the Federal Confidentiality of Alcohol and Drug Abuse Patient Records regulations: The Federal rules restrict any use of the information to criminally investigate or prosecute any alcohol or drug abuse patient.[facility] SystemIn the event this information is protected by the Federal Confidentiality of Alcohol and Drug Abuse Patient Records regulations: The Federal rules restrict any use of the information to criminally investigate or prosecute any alcohol or drug abuse patient.[facility] SystemIn the event this information is protected by the Federal Confidentiality of Alcohol and Drug Abuse Patient Records regulations: The Federal rules restrict any use of the information to criminally investigate or prosecute any alcohol or drug abuse patient.[facility] SystemIn the event this information is protected by the Federal Confidentiality of Alcohol and Drug Abuse Patient Records regulations: The Federal rules restrict any use of the information to criminally investigate or prosecute any alcohol or drug abuse patient.[facility]In the event this information is protected by the Federal Confidentiality of Alcohol and Drug Abuse Patient Records regulations: The Federal rules restrict any use of the information to criminally investigate or prosecute any alcohol or drug abuse patient.[facility] SystemIn the event this information is protected by the Federal Confidentiality of Alcohol and Drug Abuse Patient Records regulations: The Federal rules restrict any use of the information to criminally investigate or prosecute any alcohol or drug abuse patient.[facility] SystemIn the event this information is protected by the Federal Confidentiality of Alcohol and Drug Abuse Patient Records regulations: The Federal rules restrict any use of the information to criminally investigate or prosecute any alcohol or drug abuse patient.[facility]In the event this information is protected by the Federal Confidentiality of Alcohol and Drug Abuse Patient Records regulations: The Federal rules restrict any use of the information to criminally investigate or prosecute any alcohol or drug abuse patient.[facility]In the event this information is protected by the Federal Confidentiality of Alcohol and Drug Abuse Patient Records regulations: The Federal rules restrict any use of the information to criminally investigate or prosecute any alcohol or drug abuse patient.[facility]In the event this information is protected by the Federal Confidentiality of Alcohol and Drug Abuse Patient Records regulations: The Federal rules restrict any use of the information to criminally investigate or prosecute any alcohol or drug abuse patient.[facility]In the event this information is protected by the Federal Confidentiality of Alcohol and Drug Abuse Patient Records regulations: The Federal rules restrict any use of the information to criminally investigate or prosecute any alcohol or drug abuse patient.[facility] SystemIn the event this information is protected by the Federal Confidentiality of Alcohol and Drug Abuse Patient Records regulations: The Federal rules restrict any use of the information to criminally investigate or prosecute any alcohol or drug abuse patient.[facility] the event this information is protected by the Federal Confidentiality of Alcohol and Drug Abuse Patient Records regulations: The Federal rules restrict any use of the information to criminally investigate or prosecute any alcohol or drug abuse patient.[facility] SystemIn the event this information is protected by the Federal Confidentiality of Alcohol and Drug Abuse Patient Records regulations: The Federal rules restrict any use of the information to criminally investigate or prosecute any alcohol or drug abuse patient.[facility]In the event this information is protected by the Federal Confidentiality of Alcohol and Drug Abuse Patient Records regulations: The Federal rules restrict any use of the information to criminally investigate or prosecute any alcohol or drug abuse patient.[facility]In the event this information is protected by the Federal Confidentiality of Alcohol and Drug Abuse Patient Records regulations: The Federal rules restrict any use of the information to criminally investigate or prosecute any alcohol or drug abuse patient.[facility] SystemIn the event this information is protected by the Federal Confidentiality of Alcohol and Drug Abuse Patient Records regulations: The Federal rules restrict any use of the information to criminally investigate or prosecute any alcohol or drug abuse patient.[facility]In the event this information is protected by the Federal Confidentiality of Alcohol and Drug Abuse Patient Records regulations: The Federal rules restrict any use of the information to criminally investigate or prosecute any alcohol or drug abuse patient.[facility]In the event this information is protected by the Federal Confidentiality of Alcohol and Drug Abuse Patient Records regulations: The Federal rules restrict any use of the information to criminally investigate or prosecute any alcohol or drug abuse patient.[facility]In the event this information is protected by the Federal Confidentiality of Alcohol and Drug Abuse Patient Records regulations: The Federal rules restrict any use of the information to criminally investigate or prosecute any alcohol or drug abuse patient.[facility]In the event this information is protected by the Federal Confidentiality of Alcohol and Drug Abuse Patient Records regulations: The Federal rules restrict any use of the information to criminally investigate or prosecute any alcohol or drug abuse patient.[facility]In the event this information is protected by the Federal Confidentiality of Alcohol and Drug Abuse Patient Records regulations: The Federal rules restrict any use of the information to criminally investigate or prosecute any alcohol or drug abuse patient.[facility]In the event this information is protected by the Federal Confidentiality of Alcohol and Drug Abuse Patient Records regulations: The Federal rules restrict any use of the information to criminally investigate or prosecute any alcohol or drug abuse patient.[facility]In the event this information is protected by the Federal Confidentiality of Alcohol and Drug Abuse Patient Records regulations: The Federal rules restrict any use of the information to criminally investigate or prosecute any alcohol or drug abuse patient.[facility]In the event this information is protected by the Federal Confidentiality of Alcohol and Drug Abuse Patient Records regulations: The Federal rules restrict any use of the information to criminally investigate or prosecute any alcohol or drug abuse patient.[facility]In the event this information is protected by the Federal Confidentiality of Alcohol and Drug Abuse Patient Records regulations: The Federal rules restrict any use of the information to criminally investigate or prosecute any alcohol or drug abuse patient.[facility]In the event this information is protected by the Federal Confidentiality of Alcohol and Drug Abuse Patient Records regulations: The Federal rules restrict any use of the information to criminally investigate or prosecute any alcohol or drug abuse patient.[facility]In the event this information is protected by the Federal Confidentiality of Alcohol and Drug Abuse Patient Records regulations: The Federal rules restrict any use of the information to criminally investigate or prosecute any alcohol or drug abuse patient.[facility]In the event this information is protected by the Federal Confidentiality of Alcohol and Drug Abuse Patient Records regulations: The Federal rules restrict any use of the information to criminally investigate or prosecute any alcohol or drug abuse patient.[facility]In the event this information is protected by the Federal Confidentiality of Alcohol and Drug Abuse Patient Records regulations: The Federal rules restrict any use of the information to criminally investigate or prosecute any alcohol or drug abuse patient.[facility]In the event this information is protected by the Federal Confidentiality of Alcohol and Drug Abuse Patient Records regulations: The Federal rules restrict any use of the information to criminally investigate or prosecute any alcohol or drug abuse patient.[facility]In the event this information is protected by the Federal Confidentiality of Alcohol and Drug Abuse Patient Records regulations: The Federal rules restrict any use of the information to criminally investigate or prosecute any alcohol or drug abuse patient.[facility]In the event this information is protected by the Federal Confidentiality of Alcohol and Drug Abuse Patient Records regulations: The Federal rules restrict any use of the information to criminally investigate or prosecute any alcohol or drug abuse patient.[facility]In the event this information is protected by the Federal Confidentiality of Alcohol and Drug Abuse Patient Records regulations: The Federal rules restrict any use of the information to criminally investigate or prosecute any alcohol or drug abuse patient.[facility]In the event this information is protected by the Federal Confidentiality of Alcohol and Drug Abuse Patient Records regulations: The Federal rules restrict any use of the information to criminally investigate or prosecute any alcohol or drug abuse patient.[facility]In the event this information is protected by the Federal Confidentiality of Alcohol and Drug Abuse Patient Records regulations: The Federal rules restrict any use of the information to criminally investigate or prosecute any alcohol or drug abuse patient.[facility]In the event this information is protected by the Federal Confidentiality of Alcohol and Drug Abuse Patient Records regulations: The Federal rules restrict any use of the information to criminally investigate or prosecute any alcohol or drug abuse patient.[facility] SystemIn the event this information is protected by the Federal Confidentiality of Alcohol and Drug Abuse Patient Records regulations: The Federal rules restrict any use of the information to criminally investigate or prosecute any alcohol or drug abuse patient.[facility] SystemIn the event this information is protected by the Federal Confidentiality of Alcohol and Drug Abuse Patient Records regulations: The Federal rules restrict any use of the information to criminally investigate or prosecute any alcohol or drug abuse patient.[facility] SystemIn the event this information is protected by the Federal Confidentiality of Alcohol and Drug Abuse Patient Records regulations: The Federal rules restrict any use of the information to criminally investigate or prosecute any alcohol or drug abuse patient.[facility] SystemIn the event this information is protected by the Federal Confidentiality of Alcohol and Drug Abuse Patient Records regulations: The Federal rules restrict any use of the information to criminally investigate or prosecute any alcohol or drug abuse patient.[facility] SystemIn the event this information is protected by the Federal Confidentiality of Alcohol and Drug Abuse Patient Records regulations: The Federal rules restrict any use of the information to criminally investigate or prosecute any alcohol or drug abuse patient.[facility] SystemIn the event this information is protected by the Federal Confidentiality of Alcohol and Drug Abuse Patient Records regulations: The Federal rules restrict any use of the information to criminally investigate or prosecute any alcohol or drug abuse patient.[facility] SystemIn the event this information is protected by the Federal Confidentiality of Alcohol and Drug Abuse Patient Records regulations: The Federal rules restrict any use of the information to criminally investigate or prosecute any alcohol or drug abuse patient.[facility] SystemIn the event this information is protected by the Federal Confidentiality of Alcohol and Drug Abuse Patient Records regulations: The Federal rules restrict any use of the information to criminally investigate or prosecute any alcohol or drug abuse patient.[facility] SystemIn the event this information is protected by the Federal Confidentiality of Alcohol and Drug Abuse Patient Records regulations: The Federal rules restrict any use of the information to criminally investigate or prosecute any alcohol or drug abuse patient.[facility] SystemIn the event this information is protected by the Federal Confidentiality of Alcohol and Drug Abuse Patient Records regulations: The Federal rules restrict any use of the information to criminally investigate or prosecute any alcohol or drug abuse patient.[facility] SystemIn the event this information is protected by the Federal Confidentiality of Alcohol and Drug Abuse Patient Records regulations: The Federal rules restrict any use of the information to criminally investigate or prosecute any alcohol or drug abuse patient.[facility] SystemIn the event this information is protected by the Federal Confidentiality of Alcohol and Drug Abuse Patient Records regulations: The Federal rules restrict any use of the information to criminally investigate or prosecute any alcohol or drug abuse patient.[facility] SystemIn the event this information is protected by the Federal Confidentiality of Alcohol and Drug Abuse Patient Records regulations: The Federal rules restrict any use of the information to criminally investigate or prosecute any alcohol or drug abuse patient.[facility] SystemIn the event this information is protected by the Federal Confidentiality of Alcohol and Drug Abuse Patient Records regulations: The Federal rules restrict any use of the information to criminally investigate or prosecute any alcohol or drug abuse patient.[facility] SystemIn the event this information is protected by the Federal Confidentiality of Alcohol and Drug Abuse Patient Records regulations: The Federal rules restrict any use of the information to criminally investigate or prosecute any alcohol or drug abuse patient.[facility] SystemIn the event this information is protected by the Federal Confidentiality of Alcohol and Drug Abuse Patient Records regulations: The Federal rules restrict any use of the information to criminally investigate or prosecute any alcohol or drug abuse patient.[facility] SystemIn the event this information is protected by the Federal Confidentiality of Alcohol and Drug Abuse Patient Records regulations: The Federal rules restrict any use of the information to criminally investigate or prosecute any alcohol or drug abuse patient.[facility] SystemIn the event this information is protected by the Federal Confidentiality of Alcohol and Drug Abuse Patient Records regulations: The Federal rules restrict any use of the information to criminally investigate or prosecute any alcohol or drug abuse patient.[facility] SystemIn the event this information is protected by the Federal Confidentiality of Alcohol and Drug Abuse Patient Records regulations: The Federal rules restrict any use of the information to criminally investigate or prosecute any alcohol or drug abuse patient.[facility] SystemIn the event this information is protected by the Federal Confidentiality of Alcohol and Drug Abuse Patient Records regulations: The Federal rules restrict any use of the information to criminally investigate or prosecute any alcohol or drug abuse patient.[facility] SystemIn the event this information is protected by the Federal Confidentiality of Alcohol and Drug Abuse Patient Records regulations: The Federal rules restrict any use of the information to criminally investigate or prosecute any alcohol or drug abuse patient.[facility] SystemIn the event this information is protected by the Federal Confidentiality of Alcohol and Drug Abuse Patient Records regulations: The Federal rules restrict any use of the information to criminally investigate or prosecute any alcohol or drug abuse patient.[facility] SystemIn the event this information is protected by the Federal Confidentiality of Alcohol and Drug Abuse Patient Records regulations: The Federal rules restrict any use of the information to criminally investigate or prosecute any alcohol or drug abuse patient.[facility] SystemIn the event this information is protected by the Federal Confidentiality of Alcohol and Drug Abuse Patient Records regulations: The Federal rules restrict any use of the information to criminally investigate or prosecute any alcohol or drug abuse patient.[facility] SystemIn the event this information is protected by the Federal Confidentiality of Alcohol and Drug Abuse Patient Records regulations: The Federal rules restrict any use of the information to criminally investigate or prosecute any alcohol or drug abuse patient.[facility] the event this information is protected by the Federal Confidentiality of Alcohol and Drug Abuse Patient Records regulations: The Federal rules restrict any use of the information to criminally investigate or prosecute any alcohol or drug abuse patient.[facility] SystemIn the event this information is protected by the Federal Confidentiality of Alcohol and Drug Abuse Patient Records regulations: The Federal rules restrict any use of the information to criminally investigate or prosecute any alcohol or drug abuse patient.[facility] SystemIn the event this information is protected by the Federal Confidentiality of Alcohol and Drug Abuse Patient Records regulations: The Federal rules restrict any use of the information to criminally investigate or prosecute any alcohol or drug abuse patient.[facility] SystemIn the event this information is protected by the Federal Confidentiality of Alcohol and Drug Abuse Patient Records regulations: The Federal rules restrict any use of the information to criminally investigate or prosecute any alcohol or drug abuse patient.[facility] SystemIn the event this information is protected by the Federal Confidentiality of Alcohol and Drug Abuse Patient Records regulations: The Federal rules restrict any use of the information to criminally investigate or prosecute any alcohol or drug abuse patient.[facility] SystemIn the event this information is protected by the Federal Confidentiality of Alcohol and Drug Abuse Patient Records regulations: The Federal rules restrict any use of the information to criminally investigate or prosecute any alcohol or drug abuse patient.[facility] SystemIn the event this information is protected by the Federal Confidentiality of Alcohol and Drug Abuse Patient Records regulations: The Federal rules restrict any use of the information to criminally investigate or prosecute any alcohol or drug abuse patient.[facility] SystemIn the event this information is protected by the Federal Confidentiality of Alcohol and Drug Abuse Patient Records regulations: The Federal rules restrict any use of the information to criminally investigate or prosecute any alcohol or drug abuse patient.[facility] SystemIn the event this information is protected by the Federal Confidentiality of Alcohol and Drug Abuse Patient Records regulations: The Federal rules restrict any use of the information to criminally investigate or prosecute any alcohol or drug abuse patient.[facility] SystemIn the event this information is protected by the Federal Confidentiality of Alcohol and Drug Abuse Patient Records regulations: The Federal rules restrict any use of the information to criminally investigate or prosecute any alcohol or drug abuse patient.[facility] SystemIn the event this information is protected by the Federal Confidentiality of Alcohol and Drug Abuse Patient Records regulations: The Federal rules restrict any use of the information to criminally investigate or prosecute any alcohol or drug abuse patient.[facility] SystemIn the event this information is protected by the Federal Confidentiality of Alcohol and Drug Abuse Patient Records regulations: The Federal rules restrict any use of the information to criminally investigate or prosecute any alcohol or drug abuse patient.[facility] SystemIn the event this information is protected by the Federal Confidentiality of Alcohol and Drug Abuse Patient Records regulations: The Federal rules restrict any use of the information to criminally investigate or prosecute any alcohol or drug abuse patient.[facility] SystemIn the event this information is protected by the Federal Confidentiality of Alcohol and Drug Abuse Patient Records regulations: The Federal rules restrict any use of the information to criminally investigate or prosecute any alcohol or drug abuse patient.[facility] SystemIn the event this information is protected by the Federal Confidentiality of Alcohol and Drug Abuse Patient Records regulations: The Federal rules restrict any use of the information to criminally investigate or prosecute any alcohol or drug abuse patient.[facility] SystemIn the event this information is protected by the Federal Confidentiality of Alcohol and Drug Abuse Patient Records regulations: The Federal rules restrict any use of the information to criminally investigate or prosecute any alcohol or drug abuse patient.[facility] SystemIn the event this information is protected by the Federal Confidentiality of Alcohol and Drug Abuse Patient Records regulations: The Federal rules restrict any use of the information to criminally investigate or prosecute any alcohol or drug abuse patient.[facility] SystemIn the event this information is protected by the Federal Confidentiality of Alcohol and Drug Abuse Patient Records regulations: The Federal rules restrict any use of the information to criminally investigate or prosecute any alcohol or drug abuse patient.[facility] SystemIn the event this information is protected by the Federal Confidentiality of Alcohol and Drug Abuse Patient Records regulations: The Federal rules restrict any use of the information to criminally investigate or prosecute any alcohol or drug abuse patient.[facility] SystemIn the event this information is protected by the Federal Confidentiality of Alcohol and Drug Abuse Patient Records regulations: The Federal rules restrict any use of the information to criminally investigate or prosecute any alcohol or drug abuse patient.[facility] SystemIn the event this information is protected by the Federal Confidentiality of Alcohol and Drug Abuse Patient Records regulations: The Federal rules restrict any use of the information to criminally investigate or prosecute any alcohol or drug abuse patient.[facility] SystemIn the event this information is protected by the Federal Confidentiality of Alcohol and Drug Abuse Patient Records regulations: The Federal rules restrict any use of the information to criminally investigate or prosecute any alcohol or drug abuse patient.[facility] SystemIn the event this information is protected by the Federal Confidentiality of Alcohol and Drug Abuse Patient Records regulations: The Federal rules restrict any use of the information to criminally investigate or prosecute any alcohol or drug abuse patient.[facility] SystemIn the event this information is protected by the Federal Confidentiality of Alcohol and Drug Abuse Patient Records regulations: The Federal rules restrict any use of the information to criminally investigate or prosecute any alcohol or drug abuse patient.[facility] SystemIn the event this information is protected by the Federal Confidentiality of Alcohol and Drug Abuse Patient Records regulations: The Federal rules restrict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 General Family Medicine 03/18/14 Dalton Mcarthur, Former[facility] [address] [place] [address] Pharmacist Pharmacy 07/23/19 General Manager Farm Relationship Specialty Start Date End Date Gigi Carrillo, [address] [place] [address] PCP - General Family Medicine 03/18/14 Dalton Mcarthur, Former[facility] [address] [place] [address] Pharmacist Pharmacy 07/23/19 General Manager Farm Relationship Specialty Start Date End Date Gigi Carrillo, DO [address] [place] [address] PCP - General Family Medicine 03/18/14 [facility] [address] [place] [address] Pharmacist Pharmacy 07/23/19 General Manager Farm Relationship Specialty Start Date End Date Gigi Carrillo DO [address] [place] [address] PCP - General Family Medicine 03/18/14 [facility] [address] [place] [address] Pharmacist Pharmacy 07/23/19 General Manager Farm Relationship Specialty Start Date End Date Gigi Carrillo, [address] [place] [address] PCP - General Family Medicine 03/18/14 [facility]milo[facility] [address] [place] [address] Pharmacist Pharmacy 07/23/19 General Manager Farm Relationship Specialty Start Date End Date Gigi Carrillo, [address] [place] [address] PCP - General Family Medicine 03/18/14 [facility] [address] [place] [address] Pharmacist Pharmacy 07/23/19 General Manager Farm Relationship Specialty Start Date End Date Gigi Carrillo DO [address] [place] [address] PCP - General Family Medicine 03/18/14 OsminmonaDalton, [facility]ly [facility] [address] [place] [address] Pharmacist Pharmacy 07/23/19 General Manager Farm Relationship Specialty Start Date End Date Gigi Carrillo, [address] [place] [address] PCP - General Family Medicine 03/18/14 General Manager Farm Relationship Specialty Start Date End Date Gigi Carrillo, [address] [place] [address] PCP - General Family Medicine 03/18/14 General Manager Farm Relationship Specialty Start Date End Date Gigi Carrillo DO [address] [place] [address] PCP - General Family Medicine 03/18/14 General Manager Farm Relationship Specialty Start Date End Date Gigi Carrillo, [address] [place] [address] PCP - General Family Medicine 03/18/14 General Manager Farm Relationship Specialty Start Date End Date Gigi Carrillo, [address] [place] [address] PCP - General Family Medicine 03/18/14 General Manager Farm Relationship Specialty Start Date End Date Gigi Carrillo DO [address] [place] [address] PCP - General Family Medicine 03/18/14 General Manager Farm Relationship Specialty Start Date End Date Gigi Carrillo, [address] [place] [address] PCP - General Family Medicine 03/18/14 General Manager Farm Relationship Specialty Start Date End Date Gigi Carrillo DO [address] [facility] [place] [address] PCP - General Family Medicine 03/18/14 General Manager Farm Relationship Specialty Start Date End Date Gigi Carrillo DO [address] [facility] [place] [address] PCP - General Family Medicine 03/18/14 General Manager Farm Relationship Specialty Start Date End Date Gigi Carrillo DO [address] [facility] [place] [address] PCP - General Family Medicine 03/18/14 Team Status: Inactive Member Role Status Dates Dr. Gigi Carrillo DO Primary Care Provider Active Dr. Natasha Condon MD Attending Provider, Referring Provider Active General Manager Farm Relationship Specialty Start Date End Date Gigi Carrillo DO [address] [facility] [place] [address] PCP - General Family Medicine 03/18/14 General Manager Farm Relationship Specialty Start Date End Date Gigi Carrillo DO [address] [facility] [place] [address] PCP - General Family Medicine 03/18/14 General Manager Farm Relationship Specialty Start Date End Date Gigi Carrillo DO [address] [facility] [place] [address] PCP - General Family Medicine 03/18/14 General Manager Farm Relationship Specialty Start Date End Date Gigi Carrillo DO [address] [facility] [place] [address] PCP - General Family Medicine 03/18/14 General Manager Farm Relationship Specialty Start Date End Date Gigi Carrillo, [address] [facility] [place] [address] PCP - General Family Medicine 03/18/14 General Manager Farm Relationship Specialty Start Date End Date Gigi Carrillo DO [address] [facility] [place] [address] PCP - General Family Medicine 03/18/14 General Manager Farm Relationship Specialty Start Date End Date Gigi Carrillo DO [address] [facility] [place] [address] PCP - General Family Medicine 03/18/14 General Manager Farm Relationship Specialty Start Date End Date Gigi Carrillo DO [address] [facility] [place] [address] PCP - General Family Medicine 03/18/14 General Manager Farm Relationship Specialty Start Date End Date Gigi Carrillo DO [address] [facility] [place] [address] PCP - General Family Medicine 03/18/14 General Manager Farm Relationship Specialty Start Date End Date Gigi Carrillo DO [address] [facility] [place] [address] PCP - General Family Medicine 03/18/14 General Manager Farm Relationship Specialty Start Date End Date Gigi Carrillo DO [address] [place] [address] PCP - General Family Medicine 03/18/14 General Manager Farm Relationship Specialty Start Date End Date Gigi Carrillo DO [address] [facility] [place] [address] PCP - General Family Medicine 03/18/14 General Manager Farm Relationship Specialty Start Date End Date Gigi Carrillo DO [address] [facility] [place] [address] PCP - General Family Medicine 03/18/14 General Manager Farm Relationship Specialty Start Date End Date Gigi Carrillo DO [address] [facility] [place] [address] PCP - General Family Medicine 03/18/14 General Manager Farm Relationship Specialty Start Date End Date Gigi Carrillo DO [address] [facility] [place] [address] PCP - General Family Medicine 03/18/14 General Manager Farm Relationship Specialty Start Date End Date Gigi Carrillo DO [address] [facility] [place] [address] PCP - General Family Medicine 03/18/14 General Manager Farm Relationship Specialty Start Date End Date Gigi Carrillo DO [address] [facility] [place] [address] PCP - General Family Medicine 03/18/14 General Manager Farm Relationship Specialty Start Date End Date Ggii Carrillo DO [address] [facility] [place] [address] PCP - General Family Medicine 03/18/14 Dalton Mcarthur [facility] [address] [facility] [place] [address] Pharmacist Pharmacy 07/23/19 05/19/23 General Manager Farm Relationship Specialty Start Date End Date Gigi Carrillo DO [address] [facility] [place] [address] PCP - General Family Medicine 03/18/14 Dalton Mcarthur, [facility] [address] [place] [address] Pharmacist Pharmacy 07/23/19 05/19/23 General Manager Farm Relationship Specialty Start Date End Date Gigi Carrillo DO [address] [place] [address] PCP - General Family Medicine 03/18/14 Dalton Mcarthur, [facility] [address] [place] [address] Pharmacist Pharmacy 07/23/19 05/19/23 General Manager Farm Relationship Specialty Start Date End Date Gigi Carrillo DO [address] [place] [address] PCP - General Family Medicine 03/18/14 Dalton Mcarthur, [facility] [address] [place] [address] Pharmacist Pharmacy 07/23/19 05/19/23 General Manager Farm Relationship Specialty Start Date End Date Gigi Carrillo DO [address] [place] [address] PCP - General Family Medicine 03/18/14 Dalton Mcarthur, [facility] [address] [place] [address] Pharmacist Pharmacy 07/23/19 05/19/23 General Manager Farm Relationship Specialty Start Date End Date Gigi Carrillo DO [address] [place] [address] PCP - General Family Medicine 03/18/14 Dalton Mcarthur, Formerly [facility] [address] [place] [address] Pharmacist Pharmacy 07/23/19 05/19/23 General Manager Farm Relationship Specialty Start Date End Date Gigi Carrillo DO [address] [place] [address] PCP - General Family Medicine 03/18/14 General Manager Farm Relationship Specialty Start Date End Date Gigi Carrillo DO [address] [place] [address] PCP - General Family Medicine 03/18/14 Dalton Mcarthur, Formerly [facility] [address] [place] [address] Pharmacist Pharmacy 07/23/19 05/19/23 General Manager Farm Relationship Specialty Start Date End Date Gigi Carrillo DO [address] [place] [address] PCP - General Family Medicine 03/18/14 General Manager Farm Relationship Specialty Start Date End Date Gigi Carrillo DO [address] [place] [address] PCP - General Family Medicine 03/18/14 General Manager Farm Relationship Specialty Start Date End Date Gigi Carrillo DO [address] [place] [address] PCP - General Family Medicine 03/18/14 General Manager Farm Relationship Specialty Start Date End Date Gigi Carrillo DO [address] [place] [address] PCP - General Family Medicine 03/18/14 General Manager Farm Relationship Specialty Start Date End Date Gigi Carrillo DO [address] [place] [address] PCP - General Family Medicine 03/18/14 General Manager Farm Relationship Specialty Start Date End Date Gigi Carrillo DO [address] [facility] [place] [address] PCP - General Family Medicine 03/18/14 Polly Grant, [employer] [address] [place] [address] Manager [facility] 02/22/24 [facility], [employer] [address] [place] [address] Manager Technical [facility] 02/22/24 General Manager Farm Relationship Specialty Start Date End Date Gigi Carrillo DO [address] [place] [address] PCP - General Family Medicine 03/18/14 Polly Grant, [employer] [address] [place] [address] Manager Technical Support[facility] 02/22/24 [facility] [employer] [address] [place] [address] Manager Technical [facility] 02/22/24 General Manager Farm Relationship Specialty Start Date End Date Gigi Carrillo DO [address] [place] [address] PCP - General Family Medicine 03/18/14 Polly Grant, [employer] [address] [place] [address] Manager [facility] 02/22/24 [facility] Ilana, [employer] [address] [place] [place] [address] [facility] 02/22/24 General Manager Farm Relationship Specialty Start Date End Date Gigi Carrillo DO [address] [place] [place] [address] PCP - General Family Medicine 03/18/14 Polly Grant, [employer] [address] [place] [address] [facility] 02/22/24 [facility] Ilana, [employer] [address] [place] [address] [facility] 02/22/24 General Manager Farm Relationship Specialty Start Date End Date Gigi Carrillo DO [address] [place] [place] [address] PCP - General Family Medicine 03/18/14 Polly Grant, [employer] [address] [place] [address] [facility] 02/22/24 [facility], [employer] [address] [facility] [place] [address] [facility] 02/22/24 General Manager Farm Relationship Specialty Start Date End Date Gigi Carrillo DO [address] [place] [place] [address] PCP - General Family Medicine 03/18/14 Polly Grant, [employer] [address] [place] [address] Manager Technical Support Family [facility] 02/22/24 Ilana Herrera, [employer] [address] [place] [address] Manager Technical Support [facility] 02/22/24 General Manager Farm Relationship Specialty Start Date End Date Gigi Carrillo DO [address] [place] [place] [address] PCP - General Family Medicine 03/18/14 Polly Grant, [employer] [address] [place] [place] [address] Manager [facility] 02/22/24 Ilana Herrera, [employer] [address] [place] [address] [facility] 02/22/24 General Manager Farm Relationship Specialty Start Date End Date Gigi Carrillo DO [address] [place] [address] PCP - General Family Medicine 03/18/14 Polly Grant, [employer] [address] [place] [place] [address] Manager Technical [facility] 02/22/24 Ilana Herrera, [employer] [address] [place] [place] [address] Manager Technical [facility] 02/22/24 General Manager Farm Relationship Specialty Start Date End Date Gigi Carrillo DO [address] [place] [address] PCP - General Family Medicine 03/18/14 Polly Grant, [employer] [address] [place] [address] Manager Technical Support Family [facility] 02/22/24 06/04/24 GloryIlana, [employer] [address] [place] [address] Manager Technical Support Family [facility] 02/22/24 General Manager Farm Relationship Specialty Start Date End Date Gigi Carrillo DO [address] [place] [address] PCP - General Family Medicine 03/18/14 Ilana Herrera, [employer] [address] [place] [address] Manager Technical [facility] 02/22/24 General Manager Farm Relationship Specialty Start Date End Date Gigi Carrillo DO [address] [place] [address] PCP - General Family Medicine 03/18/14 Ilana Herrera, [employer] [address] [place] [address] Manager Technical [facility] 02/22/24 General Manager Farm Relationship Specialty Start Date End Date Gigi Carrillo DO [address] [place] [address] PCP - General Family Medicine 03/18/14 Ilana Herrera, [employer] [address] [place] [address] Manager Technical Support Family [facility] 02/22/24 General Manager Farm Relationship Specialty Start Date End Date Gigi Carrillo DO [address] [place] [address] PCP - General Family Medicine 03/18/14 GloryIlana, [employer] [address] [place] [address] Manager Technical Support [facility] 02/22/24 General Manager Farm Relationship Specialty Start Date End Date Gigi Carrillo DO [address] [place] [address] PCP - General Family Medicine 03/18/14 GloryIlana, [employer] [address] [place] [address] Manager Technical Support [facility] 02/22/24 General Manager Farm Relationship Specialty Start Date End Date Gigi Carrillo DO [address] [place] [address] PCP - General Family Medicine 03/18/14 GloryIlana, [employer] [address] [place] [address] Manager Technical [facility] 02/22/24 General Manager Farm Relationship Specialty Start Date End Date Gigi Carrillo DO [address] [place] [address] PCP - General Family Medicine 03/18/14 GloryIlana, [employer] [address] [place] [address] Manager Technical Support [facility] 02/22/24 General Manager Farm Relationship Specialty Start Date End Date Gigi Carrillo DO [address] [place] [address] PCP - General Family Medicine 03/18/14 GloryIlana, [employer] [address] [facility] [place] [address] Manager Technical Support[facility] 02/22/24 General Manager Farm Relationship Specialty Start Date End Date Gigi Carrillo DO [address] [facility] [place] [address] PCP - General Family Medicine 03/18/14 GloryIlana, [employer] [address] [place] [address] Manager Technical [facility] 02/22/24 General Manager Farm Relationship Specialty Start Date End Date Gigi Carrillo DO [address] [facility] [place] [address] PCP - General Family Medicine 03/18/14 GloryIlana, [employer] [address] [place] [address] Manager Technical Support[facility] 02/22/24 General Manager Farm Relationship Specialty Start Date End Date Gigi Carrillo DO [address] [place] [address] PCP - General Family Medicine 03/18/14 GloryIlana, [employer] [address] [facility] [place] [address] [facility] 02/22/24 Mook Mcguire, [employer] [address] [place], [place] [address] [facility] 08/30/24 General Manager Farm Relationship Specialty Start Date End Date Gigi Carrillo DO [address] [place], [place] [address] [phone] PCP - General Family Medicine 03/18/14 [facility], [employer] [address] [place] [address] [facility] 02/22/24 Mook Mcguire, [employer] [address] [place] [address] [facility] 08/30/24 General Manager Farm Relationship Specialty Start Date End Date Gigi Carrillo DO [address] [place] [address] PCP - General Family Medicine 03/18/14 GloryIlana, [employer] [address] [place] [address] [facility] 02/22/24 Mook Mcguire, [employer] [address] [place], [place] [address] [phone] [facility] 08/30/24 Goals (unrecognized section and content) Goals may be documented in a n alternate section No data available for this sectionGoals may be documented in an alternate section No data available for this section No data available for this section No data available for this section No data available for this section No data available for this sectionGoals may be documented in an alternate sectionGoals may be documented in an alternate section No data available for this sectionGoals may be documented in an alternate section No data available for this section No data available for this section Care Team (unrecognized sect ion and content) Care Team Personnel Name: GIGI CARRILLO DO Member Role: Primary Care Physician Address: Address: [address] Care Team Related Persons Name: HERNANDEZ, CECI Name: HERNANDEZ, CECI Name: HERNANDEZ, CECI Name: HERNANDEZ, CECI Name: HERNANDEZ, CECI Name: HERNANDEZ, CECI Name: HERNANDEZ, CECI Name: HERNANDEZ, CECI Name: HERNANDEZ, CECI Name: HERNANDEZ, CECI Name: HERNANDEZ, CECI Name: HERNANDEZ, CECI Name: HERNANDEZ, CECI Name: HERNANDEZ, CECI Name: HERNANDEZ, CECI Name: HERNANDEZ, CECI Name: HERNANDEZ, CECI Care Team Personnel Name: GIGI CARRILLO DO Member Role: Primary Care Physician Address: Address: [address] Care Team Related Persons Name: HERNANDEZ, CECI Name: HERNANDEZ, CECI Name: HERNANDEZ, CECI Name: HERNANDEZ, CECI Name: HERNANDEZ, CECI Name: HERNANDEZ, CECI Name: HERNANDEZ, CECI Name: HERNANDEZ, CECI Name: HERNANDEZ, CECI Name: HERNANDEZ, CECI Name: HERNANDEZ, CECI Name: HERNANDEZ, CECI Name: HERNANDEZ, CECI Name: HERNANDEZ, CECI Name: HERNANDEZ, CECI Name: HERNANDEZ, CECI Name: HERNANDEZ, CECI Care Team Personnel Name: GIGI CARRILLO DO Member Role: Primary Care Physician Address: Address: [address] Name: Mame Hagen RN Position: MUNA RN Member Role: RN Name: MD MARIE TIMOTHY MD Position: [facility] ED Physician Member Role: ED Physician Address: Address: [address] [place] [address] Care Team Related Persons Name: HERNANDEZ, CECI Name: HERNANDEZ, CECI Name: HERNANDEZ, CECI Name: HERNANDEZ, CECI Name: HERNANDEZ, CECI Name: HERNANDEZ, CECI Name: HERNANDEZ, CECI Name: HERNANDEZ, CECI Name: HERNANDEZ, CECI Name: HERNANDEZ, CECI Name: HERNANDEZ, CECI Name: HERNANDEZ, CECI Name: HERNANDEZ, CECI Name: HERNANDEZ, CECI Name: HERNANDEZ, CECI Name: HERNANDEZ, CECI Name: HERNANDEZ, CECI Care Team Personnel Name: GIGI CARRILLO DO Member Role: Primary Care Physician Address: Address: [facility] [address] Care Team Related Persons Name: HERNANDEZ, CECI Name: HERNANDEZ, CECI Name: HERNANDEZ, CECI Name: HERNANDEZ, CECI Name: HERNANDEZ, CECI Name: HERNANDEZ, CECI Name: HERNANDEZ, CECI Name: HERNANDEZ, CECI Name: HERNANDEZ, CECI Name: HERNANDEZ, CECI Name: HERNANDEZ, CECI Name: HERNANDEZ, CECI Name: HERNANDEZ, CECI Name: HERNANDEZ, CECI Name: HERNANDEZ, CECI Name: HERNANDEZ, CECI Name: HERNANDEZ, CECI Care Team Personnel Name: GIGI CARRILLO DO Member Role: Primary Care Physician Address: Address: [facility] [address] Care Team Related Persons Name: HERNANDEZ, CECI Name: HERNANDEZ, CECI Name: HERNANDEZ, CECI Name: HERNANDEZ, CECI Name: HERNANDEZ, CECI Name: HERNANDEZ, CECI Name: HERNANDEZ, CECI Name: HERNANDEZ, ECCI Name: HERNANDEZ, CECI Name: HERNANDEZ, CECI Name: HERNANDEZ, CECI Name: HERNANDEZ, CECI Name: HERNANDEZ, CECI Name: HERNANDEZ, CECI Name: HERNANDEZ, CECI Name: HERNANDEZ, CECI Name: HERNANDEZ, CECI Care Team Personnel Name: GIGI CARRILLO DO Member Role: Primary Care Physician Address: Address: [address] Name: MARJORIE PRATER MD Position: ED Physician Member Role: Attending Physician Address: Address: [facility] [address] [place] [id number] Name: WILLIAM Maddox Position: MUNA RN Member Role: ED RN Care Team Related Persons Name: HERNANDEZ, CECI Name: HERNANDEZ, CECI Name: HERNANDEZ, CECI Name: HERNANDEZ, CECI Name: HERNANDEZ, CECI Name: HERNANDEZ, CECI Name: HERNANDEZ, CECI Name: HERNANDEZ, CECI Name: HERNANDEZ, CECI Name: HERNANDEZ, CECI Name: HERNANDEZ, CECI Name: HERNANDEZ, CECI Name: HERNANDEZ, CECI Name: HERNANDEZ, CECI Name: HERNANDEZ, CECI Name: CECI HERNANDEZ Name: CECI HERNANDEZ Inactive Administered Medications - up to 3 most recent administrations Administered Medications (un recognized section and content) Medication Order MAR Action Action Date Dose Rate Site keTORolac 60 mg injection (Toradol) 60 mg, INTRAMUSCULAR, ONCE, 1 dose, On Fri06/16/23 at 1800, Ketorolac (Toradol) is indicated for the short-term (up to 5 days) management of moderately severe acute pain. Continuation of ketorolac (Toradol) beyond 5 days increases the risk of developing serious adverse events. Please verify the duration of therapy for ketorolac (Toradol)., If ordered PRN for pain, patient/guardian may elect to receive this medication for higher pain levels INSTEAD of the opioid, if preferred: Yes Given 06/16/2023 6:01 PM EDT 60 mg Buttocks, Right ondansetron orally disintegrating 4 mg tab(s) (ZOFRAN ODT) 4 mg, ORAL, ONCE, 1 dose, On Fri06/16/23 at 1800, Place tablet on tongue and allow to dissolve; do not chew. Open packaging using dry hands; do not push tablet through packaging. Given 06/16/2023 6:02 PM EDT 4 mg INFORMATION SOURCE (unrecogn ized section and content) DATE CREATED AUTHOR 11/11/2023 [facility] DATE CREATED AUTHOR AUTHOR'S ORGANIZ ATION 11/17/2023 [facility] ([place]) DATE CREATED AUTHOR AUTHOR'S ORGANIZ ATION 07/22/2024 [facility] DATE CREATED AUTHOR AUTHOR'S ORGANIZ ATION 07/23/2024 [facility] DATE CREATED AUTHOR AUTHOR'S ORGANIZ ATION 11/12/2024 [facility] DATE CREATED AUTHOR AUTHOR'S ORGANIZ ATION 12/04/2024 [facility] DATE CREATED AUTHOR AUTHOR'S ORGANIZ ATION 01/27/2025 [facility] FOR RECORDS PERTAINING TO PATIENTS WHO ARE OR HAVE BEEN ENROLLED IN A CHEMICAL DEPENDENCY/SUBSTANCEABUSE PROGRAM, SOME INFORMATION MAY BE OMITTED. This clinical summary was aggregated from multiple sources. Caution should be exercised in using it in the provision of clinical care. This summary normalizes information from multiple sources, and as a consequence, information in this document may materially change the coding, format and clinical context of patient data. In addition, data may be omitted in some cases. CLINICAL DECISIONS SHOULD BE BASED ON THE PRIMARY CLINICAL RECORDS. [facility]. provides no warranty or guarantee of the accuracy or completeness of information in this document.
[2025-01-30] MEDS: 0.9% Normal Saline (1000mL) 1,000 ML 999 ML IV (14:16)
[2025-01-30 14:26] LABS: Hematocrit 39.5 % (37-47); Hemoglobin 13.4 g/dL (12.0-15.0); Immature Granulocytes Count 0.040 X10^3/uL (0.0-0.0); Mean Corp Hgb Conc 33.9 g/dL (32-36); Mean Corpuscular Volume 89.4 fL (81-99); Mean Platelet Vol. 9.4 fl (6.2-12.0); NRBC Flagged by Analyzer 0 % (0-5); Platelet Count 321 K/mm3 (150-450); RBC Distribution Width CV 12.3 % (11.6-14.6); RBC Distribution Width SD 40.5 fl (35.1-43.9); Red Blood Count 4.42 M/mm3 (4.2-5.4); White Blood Count 10.4 K/mm3 (4.4-11.0)
--- NOTE | 2025-01-30 14:29 | EX.ED.DYSGE1 ---
HPI History of Present Illness Chief Complaint: Wound Check Narrative Narrative: Patient is a 39-year-old female with past medical history of migraine headache, diarrhea, diabetes, recent plastic surgery with panniculectomy with a plastic surgeon through [facility] who presents to the emergency department with concern for infection. Patient states that she has a appointment with him tomorrow for follow-up and notes that she noted some drainage that looked like pus coming from her right drain and she came here to be further evaluated. Patient states that she did not call her plastic surgeons office before coming here. She states that she is not on any antibiotics currently. She notes her surgery was last Friday. [facility] Medical History Gastric reflux Leg cramps Migraine headache delivery delivered Cholecystectomy planned unexplained bruises Knee pain Diarrhea Severe headache H/O gastric ulcer Diabetes Home Medications Medication Instructions Recorded Last Taken Type colestipol 1 gram tablet 1 g PO DAILY 07/31/17 02/17/20 History tirzepatide 10 mg/0.5 mL 10 mg subcut QWEEK 06/05/23 Unknown History subcutaneous pen injector (Mounjaro) cyclobenzaprine 10 mg tablet 10 mg PO TID PRN Muscle Spasm #10 08/31/23 Unknown Rx TABLETS hydrocodone-acetaminophen 5-325mg 1 tab PO Q6H PRN PRN Pain 3 days 08/31/23 Unknown Rx 5mg-325mg #10 TABLETS naproxen 500 mg tablet 500 mg PO BID PRN #20 tabs 05/09/24 Unknown Rx atomoxetine 40 mg capsule 80 mg PO QDAY 11/10/24 Unknown History epinephrine 0.3 mg/0.3 mL 0.3 mg IM Q5-15M PRN 11/10/24 Unknown History injection, auto-injector (EpiPen 2-Mundo) levonorgestrel 17.5 mcg/24 hr (up 1 device intrauterine ONCE 11/10/24 Unknown History to 5 yrs) 19.5mg intrauterine device omeprazole 40 mg capsule,delayed 40 mg PO QDAY 11/10/24 Unknown History release phenyleph-shark liver oil-hvo 0.25 supp GA 11/10/24 Unknown History %-3 % rectal suppository cephalexin 500 mg capsule 500 mg PO BID #14 caps 01/30/25 Unknown Rx ondansetron 4 mg disintegrating 4 mg PO Q6H PRN nausea and 01/30/25 Unknown Rx tablet vomiting #20 tabs oxycodone-acetaminophen 5 mg-325 1 tab PO Q6H PRN pain 2 days #8 01/30/25 Unknown Rx mg tablet (Endocet) tabs Allergy/AdvReac Type Severity Reaction Status Date / Time meloxicam Allergy Unknown NEEDS Verified 11/10/24 11:48 FOLLOW-UP macadamia nut oil Allergy Rash Verified 05/09/24 17:52 Family History Mother Breast cancer Kidney disease Ovarian cancer Pancreatic cancer Surgical History Hx of sinus surgery Hx of foot surgery H/O foot surgery Social History Smoking Status: Never smoker alcohol intake: current substance use type: former substance user and marijuana what type of physical activity do you participate in: none ROS ROS ED ROS Narrative Constitutional: Denies any fevers or chills Abdomen: Denies any increased abdominal pain outside of surgical pain denies any nausea vomiting diarrhea : Denies urinary symptoms Neurological: Denies any numbness, weakness, tingling Skin: Complains of drainage coming from her right drain as noted above EXAM Physical Exam Narrative Exam Narrative: General: Patient was lying in bed rest comfortably did not appear to be in acute distress Head: Atraumatic, normocephalic Eyes: PERRL bilaterally, EOMI bilaterally, no conjunctival injection noted Neck: Soft, supple, trachea midline Cardiovascular: Regular rate Abdomen: Soft, nondistended Neurological: Patient following commands knew that she was at [facility] years 2024 Skin: Patient has surgical incision from her bellybutton [facility] down through the midline across her lower abdomen pain from [id number]. Surgical incision appears to be healing well no active drainage noted no surrounding erythema noted. Patient has 2 TRINIDAD drains noted 1 on the right 1 in the left the left appears to be without any evidence of infection in the right has evidence of what appears to be serosanguineous drainage do not appreciate venessa pus. Const Vital Signs: 01/30/25 13:27 01/30/25 13:31 Temperature 98.1 F 98.2 F Temperature Source Oral Oral Pulse Rate 72 72 Respiratory Rate 16 16 Blood Pressure 155/115 H 155/115 H Blood Pressure Mean 128 128 Pulse Ox 98 98 Oxygen Delivery Method Room Air Room Air MDM MDM MDM Narrative Medical decision making narrative: Patient is a 39-year-old female who presented to the emergency department with a chief complaint drainage coming from her right TRINIDAD drain. On the differential diagnose includes but owing to cellulitis, serosanguineous drainage, purulent drainage to suggest abscess. Once workup is obtained reviewed she will be reevaluated. Patient given a gram of Rocephin. Patient CBC reviewed and showed no evidence leukocytosis white blood count normal 10.4, hemoglobin 13.4, platelet count was noted to be 321. Patient's chemistries are pending as well as her lactic acid. Nursing notified me that the patient is requesting to leave AGAINST MEDICAL ADVICE. I went back in to reevaluate the patient and she was crying and was stating that she was in a lot of pain. States that her IV was leaking and was going down her arm. She states that she just wants to follow-up with her surgeon tomorrow. I advised her that we should continue the workup to ensure that she does not have an abscess or any other infection. She states that she does not want to do this and wants to leave. We did discuss the risks of leaving which potentially will lead to worsening infection if this is the case and leading to her she verbalized understanding of this. Patient will be given prescription for Endocet and Zofran for pain control to get her through to see her surgeon as well as be placed on Keflex she was given a gram Rocephin here. Once again I did not appreciate any venessa pus coming from her right TRINIDAD drain. All question concerns answered at bedside. Lab Data Labs: Laboratory Results - last 24 hr 01/30/25 14:19 WBC 10.4 RBC 4.42 Hgb 13.4 Hct 39.5 MCV 89.4 MCH 30.3 MCHC 33.9 RDW Std Deviation 40.5 RDW Coeff of Tristan 12.3 Plt Count 321 MPV 9.4 Immature Gran % (Auto) 0.400 Neut % (Auto) 68.9 Lymph % (Auto) 21.8 Putnam % (Auto) 5.8 Eos % (Auto) 2.5 Baso % (Auto) 0.6 Absolute Neuts (auto) 7.2 Absolute Lymphs (auto) 2.27 Nucleated RBC % 0 Discharge Plan Triage Chief Complaint: Wound Check ED Provider: Luis Felipe Ford Dx/Rx/DC Orders Clinical Impression: Status post panniculectomy, Diabetes Prescriptions: New oxycodone-acetaminophen [Endocet] 5-325 mg tablet 1 tab PO Q6H PRN (Reason: pain) 2 Days Qty: 8 0RF cephalexin 500 mg capsule 500 mg PO BID Qty: 14 0RF ondansetron 4 mg tablet,disintegrating 4 mg PO Q6H PRN (Reason: nausea and vomiting) Qty: 20 0RF No Action epinephrine [EpiPen 2-Mundo] 0.3 mg/0.3 mL auto-injector 0.3 mg IM Q5-15M PRN Rx Instructions: do not exceed 3 doses per episode levonorgestrel 17.5 mcg/24 hr (5 yrs) 19.5 mg intrauterine device 1 device intrauterine ONCE Rx Instructions: as a single dose omeprazole 40 mg capsule,delayed release(DR/EC) 40 mg PO QDAY atomoxetine 40 mg capsule 80 mg PO QDAY phenyleph-shark liver oil-hvo 0.25-3 % suppository GA colestipol 1 GM tablet 1 g PO DAILY Mounjaro 10 mg/0.5 mL pen injector 10 mg subcut QWEEK Patient Comments: WILL BE STARTING TODAY 06/05/23 IF CHING HAS IN STOCK cyclobenzaprine 10 mg tablet 10 mg PO TID PRN (Reason: Muscle Spasm) Qty: 10 0RF hydrocodone-acetaminophen 5-325 mg tablet 1 tab PO Q6H PRN PRN (Reason: Pain) 3 Days Qty: 10 0RF naproxen 500 mg tablet 500 mg PO BID PRN Qty: 20 0RF Primary Care Provider: Gigi Carrillo Referrals: Gigi Carrillo DO [Primary Care Provider, Medical] Activity Restrictions/Additional Instructions: Follow-up with your plastic surgeon tomorrow. Use the prescriptions as prescribed. Do not operate thing under the influence of the Endocet will make you sleepy and drowsy. Return with worsening symptoms or other concern Print Language: Albanian Disposition Disposition: Elopement
[2025-01-30 14:50] VITALS: BP 110/75; PULSE 73; RESP 16; TEMP 36.7; O2SAT 99
[2025-01-30 15:00] VITALS: BP 145/78; PULSE 77; RESP 14; TEMP 36.8; O2SAT 98
[2025-01-30] MEDS: HYDROcodone Bitartrate/Apap 5/325 Tablet PO (15:03)
--- NOTE | 2025-01-30 15:08 | ED.RN ---
1450: PT. PLACED CALL LIGHT ON AND STATED "MY IV IS LEAKING". THIS NURSE ASSESSED IV SITE FOR INFILTRATION, PAIN, AND LEAKING. NEW DRESSING APPLIED EXTENSION LOOP SITE TIGHTENED, AND SALINE LOCK PATENT AND INTACT. PT. REQUESTED THIS NURSE TO REMOVE IV AND ALSO STATED "I JUST WANT TO LEAVE REMOVE MY IV PLEASE". THIS ASSESSED PAIN, POSITIONING, BATHROOM NEEDS, EDUCATION PROVIDED, PT. ASSISTED UP TO BATHROOM WHILE PROVIDER NOTIFIED OF PT. REQUEST TO LEAVE AMA.
[2025-01-30 15:24] LABS: AST(SGOT) 14 U/L (<=31); Alanine Aminotransfer ALT/SGPT 8 U/L (<=34); Albumin, Serum 3.9 g/dL (3.5-5.0); Alkaline Phosphatase 65 U/L (35-104); Anion Gap 9 (5-15); BUN 9 mg/dL (4-19); BUN/Creat Ratio 14.8 RATIO (10-20); Calcium,Total 9.2 mg/dL (7.6-11.0); Carbon Dioxide 24.8 mmol/L (21.0-32.0); Chloride 102 mmol/L (98-108); Estimated Creatinine Clearance 145.76 ml/min (50-250); Globulin 3.0 g/dL (2.2-4.2); Glucose 118 mg/dL (70-99); Potassium 3.7 mmol/L (3.3-5.1)
== END 2025-01-30 15:10 | disposition left against medical advice (07) ==
PROVIDERS: Emergency Provider Emergency Medicine; PCP Student in an Organized Health Care Education/Training Program; Visit Provider Emergency Medicine
DX: G89.18 Other acute postprocedural pain (principal); E11.9 Type 2 diabetes mellitus without complications; K21.9 Gastro-esophageal reflux disease without esophagitis; G43.909 Migraine, unspecified, not intractable, without status migrainosus; Z87.2 Personal history of diseases of the skin and subcutaneous tissue; Z90.49 Acquired absence of other specified parts of digestive tract; Z87.19 Personal history of other diseases of the digestive system; Z79.85 Long-term (current) use of injectable non-insulin antidiabetic drugs; Z79.899 Other long term (current) drug therapy; Z98.890 Other specified postprocedural states; Z53.29 Procedure and treatment not carried out because of patient's decision for other reasons
CPT/HCPCS: 80053; 83605; 85025; 96365; 99283; A4216